=== PATIENT | male | born 1975 | race Caucasian/White ===

== ENCOUNTER 2017-01-10 23:55 | Inpatient (IN) | payer MEDICAID ==
[~2017-01-10] VITALS: Ht 175.3 cm; Wt 99.8 kg
[~2017-01-10 23:55] MED LIST: ACET-2605 GT; ACET-868 GT; ACET325S10 RC; ALBU2.5V11 IH; ALBU2.5V13 IH; BISA10SU8 RC; CRAN3875 GT; DOCU-170 GT; ERGO400T7 GT; FERR220S2 GT; LACT-209 GT; LANS15TA4 GT; MAGN400O6 GT; MULT9LIQ GT; NA P133E RC; NAPH15DR14 EACHEYE; ONDA2VIA2 IV; POLY119P2 GT; RIVA10TA GT; VALP250S14 GT; VIT500LI GT
[2017-01-11] VITALS (7 sets, daily range): BP systolic 95–135; BP diastolic 51–95
--- NOTE | 2017-01-11 | NUR ---
TO BED 5 A 41 YO MALE PATIENT PT NIRMAL#78 FROM [facility] PER EMS PT HAS HAD A FEVER X 1 DAY. UPON ARRIVAL, PATIENT IS AWAKE, ALERT, NONVERBAL, RESPONSIVE. NAD NOTED. VSS. PLACED ON CARDIAC AND VS MONITOR. SUCTIONED FOR AIRWAY CLEARANCE. RT AT BEDSIDE TO CONNECT PATIENT TO [facility] VENT. SAFETY AND COMFORT MEASURES RENDERED. COOLING MEASURES RENDERED.
[2017-01-11] MEDS ORDERED: ACETAMINOPHEN 650 MG/SUPP.RECT RC ONE ×2 (00:14→01:00)
--- NOTE | 2017-01-11 00:20 | NUR ---
STARTED A SALINE LOCK ON THE RFA G20, BLOOD DRAWN AND SENT TO LAB.
--- NOTE | 2017-01-11 00:25 | NUR ---
XR AT BEDSIDE.
[2017-01-11] MEDS ORDERED: IV NS 0.9% 1,000 ML BAG IV ONE ×3 (00:30→01:00)
[2017-01-11 00:40] LABS: BASOPHILS # (AUTO) 0.1 /CMM (0.0-0.2); BASOPHILS % (AUTO) 0.3 % (0.0-2.0); HEMATOCRIT 33 % (39-51); HEMOGLOBIN 10.7 g/dL (13.5-17.5); LYMPHOCYTES # (AUTO) 1.3 /CMM (0.8-4.8); LYMPHOCYTES % (AUTO) 8.4 % (20.0-44.0); MEAN CORPUSCULAR HEMOGLOBIN 31 PG (26.0-33.0); MEAN CORPUSCULAR HGB CONC 33 g/dl (31.0-36.0); MEAN CORPUSCULAR VOLUME 94 fL (80-96); MONOCYTES # (AUTO) 0.7 /CMM (0.1-1.30); MONOCYTES % (AUTO) 4.7 % (2.0-12.0); NEUTROPHILS # (AUTO) 13.2 /CMM (1.8-8.9); NEUTROPHILS % (AUTO) 86.6 % (43.0-81.0); PLATELET COUNT (AUTO) 264 /CMM (150-450); RDW COEFFICIENT OF VARIATION 19.7 (11.5-15.0); RED BLOOD CELL COUNT(AUTO) 3.45 MIL/uL (4.5-6.0); WHITE BLOOD COUNT (AUTO) 15.2 K/uL (4.3-11.0)
[2017-01-11 00:43] LABS: APPEARANCE,URINE CLEAR (CLEAR); BILIRUBIN,URINE NEGATIVE (NEGATIVE); BLOOD, URINE NEGATIVE Ery/uL (NEGATIVE); COLOR,URINE YELLOW (YELLOW); KETONES,URINE NEGATIVE (NEGATIVE); LEUKOCYTE ESTERASE ,URINE NEGATIVE (NEGATIVE); NITRITE, URINE NEGATIVE (NEGATIVE); PROTEIN,URINE NEGATIVE (NEGATIVE); UGLUCOSE NEGATIVE (NEGATIVE); UROBILINOGEN,URINE 0.2 EU/dL (0.2)
--- NOTE | 2017-01-11 00:49 | NUR ---
PT ASSIGNED TO 113-2
[2017-01-11] MEDS ORDERED: ENOX40DI SUBCUT (00:53)
[2017-01-11 00:54] LABS: CALCIUM, SERUM 9.3 mg/dL (8.5-10.1); CARBON DIOXIDE 26 mmol/L (21-32); CHLORIDE 106 mmol/L (98-107); CREATININE 0.3 mg/dL (0.6-1.3); GLUCOSE 118 mg/dL (74-106); POTASSIUM 4.4 mmol/L (3.5-5.1); SODIUM SERUM 140 mmol/L (136-145); UREA NITROGEN, BLOOD 7 mg/dL (7-18)
[2017-01-11] MEDS ORDERED: IV NS 0.9% 500 ML BAG IV ONE (01:00)
[2017-01-11] MEDS ORDERED: LEVOFLOXACIN 750 MG /D5W 150ML PIGGYBACK IV ONE (01:00)
[2017-01-11] MEDS ORDERED: AZTREONAM 1 G in IV NS 0.9% 100 ML IV ONE (01:00)
[2017-01-11 01:01] LABS: TROPONIN I < 0.017 ng/mL (0.00-0.056)
[2017-01-11 01:04] LABS: INR 1.05 (0.87-1.13); PROTHROMBIN TIME 10.9 SECS (9.5-12.7)
[2017-01-11] MEDS ORDERED: AZTREONAM 1 G VIAL ONE (01:06)
[2017-01-11 01:08] LABS: ALANINE AMINOTRANSFERASE 54 U/L (12-78); ALBUMIN 2.3 g/dL (3.4-5.0); ALKALINE PHOSPHATASE 273 U/L (46-116); ASPARTATE AMINOTRANSFERASE 43 U/L (15-37); BILIRUBIN,DIRECT 0.2 mg/dL (0.0-0.2); BILIRUBIN,TOTAL 0.6 mg/dL (0.2-1.0); TOTAL PROTEIN, SERUM 7.6 g/dL (6.4-8.2)
--- NOTE | 2017-01-11 01:20 | NUR ---
CALLED DR. CRUZ OFFICE, LEFT, WAITING FOR CALL BACK,
--- NOTE | 2017-01-11 01:22 | NUR ---
DR PLATT SPEAKING TO DR. CRUZ REGARDING ADMISSION.
--- NOTE | 2017-01-11 01:45 | NUR ---
PRACTICE LEAD INITIAL NOTES RECEIVED PATIENT VIA GURNEY, RESPONSIVE TO NAME, AND TOUCH, NON-VERBAL, VENT DEPENDENT. ABLE TO MAKE NEEDS KNOWN WITH HAND GESTURES. NO S/S OF PAIN OR DISCOMFORT. RESPIRATIONS EVEN AND UNLABORED WITH VENT SETTINGS AC 14, TV 550, FIO2 40%, PEEP 5, SPO2 100%. TRACH C/D/I. LUNG SOUNDS RHONCHI, SUCTION, WITH PALE YELLOW, THICK SECRETIONS. WITH GT PATENT, INTACT, IN PLACE, CLAMPED. ON TELE MONITOR SR. NOTED WITH ABDOMINAL DISTENTION, NON-TENDER. F/C DRAINING BY GRAVITY, PATENT AND INTACT, WITH CLEAR, YELLOW OUTPUT. WITH RFA IV LINES PATENT AND INTACT, ONE WITH AZACTAM RUNNING AND ONE WITH 2 BAGS OF NS RUNNING BOLUS. HOB ELEVATED. SIDE RAILS UP AND LOCKED. BED KEPT AT LOWEST POSITION. CALL LIGHT KEPT WITHIN EASY REACH. WILL CONTINUE TO MONITOR.
--- NOTE | 2017-01-11 01:50 | NUR ---
REPORT GIVEN TO PEGGY CALLOWAY FOR TELE ADMISSION AND SHERIE.
--- NOTE | 2017-01-11 01:55 | NUR ---
TRANSFERRED PATIENT TO TELE BED 313-2 VIA ALS PROTOCOL, NO INCIDENT NOTED.
[2017-01-11] MEDS ORDERED: ALBUTEROL FS 2.5 MG/3 ML VIAL.NEB NEB PRN (02:00)
[2017-01-11] MEDS ORDERED: LEVOFLOXACIN 750 MG /D5W 150ML 750 MG in PREMIX 1 EA IV SCH (02:00)
[2017-01-11] MEDS ORDERED: ENOXAPARIN SODIUM 40 MG/0.4 ML DISP.SYRIN SQ SCH ×2 (02:30→09:00)
[2017-01-11] MEDS ORDERED: DEXT15DR6 EACHEYE ×2 (02:41→02:44)
[2017-01-11] MEDS ORDERED: FAMO20TA8 PO ×2 (02:41→02:44)
[2017-01-11] MEDS ORDERED: PROP15TA GT (02:44)
[2017-01-11] MEDS ORDERED: LEVE500T9 PO (02:44)
[2017-01-11] MEDS ORDERED: METO25TA6 GT (02:44)
[2017-01-11] MEDS ORDERED: THEO80SO GT (02:44)
--- NOTE | 2017-01-11 04:11 | NUR ---
SPOKE WITH NURSE KAREEM FROM [facility], PATIENT HAS NO RECORD OF FLU VACCINE, BUT HAS RECORD OF PNA VACCINE ON 04/20/14
[2017-01-11 07:17] LABS: BASOPHILS % (AUTO) 0.1 % (0.0-2.0); EOSINOPHILS % (AUTO) 0.1 % (0.0-6.0); HEMATOCRIT 38 % (39-51); HEMOGLOBIN 12.3 g/dL (13.5-17.5); LYMPHOCYTES # (AUTO) 1.3 /CMM (0.8-4.8); LYMPHOCYTES % (AUTO) 8.3 % (20.0-44.0); MEAN CORPUSCULAR HEMOGLOBIN 31 PG (26.0-33.0); MEAN CORPUSCULAR HGB CONC 33 g/dl (31.0-36.0); MEAN CORPUSCULAR VOLUME 96 fL (80-96); MONOCYTES # (AUTO) 0.6 /CMM (0.1-1.30); NEUTROPHILS # (AUTO) 13.7 /CMM (1.8-8.9); NEUTROPHILS % (AUTO) 87.5 % (43.0-81.0); PLATELET COUNT (AUTO) 229 /CMM (150-450); RDW COEFFICIENT OF VARIATION 19.9 (11.5-15.0); RED BLOOD CELL COUNT(AUTO) 3.91 MIL/uL (4.5-6.0); WHITE BLOOD COUNT (AUTO) 15.7 K/uL (4.3-11.0)
--- NOTE | 2017-01-11 07:26 | NUR ---
CLINIC ASSISTANT CLOSING NOTES NO SIGNIFICANT CHANGES OVERNIGHT. PATIENT RESTING COMFORTABLY IN BED. NO RESPIRATORY DISTRESS NOTED. TOLERATING VENT SETTINGS. SPO2 100%. WITH GT PATENT PATENT, INTACT, IN PLACE. F/C PATENT AND INTACT, DRAINING BY GRAVITY. ISOLATION PRECAUTIONS OBSERVED. SIDE RAILS UP AND LOCKED. BED KEPT AT LOWEST POSITION. TURNED AND REPOSITIONED Q2 AND PRN. CONTINUITY OF CARE ENDORSED TO AM NURSE.
[2017-01-11] MEDS ORDERED: Z GUARD REMEDY 2 OZ OINT TP PRN (07:30)
[2017-01-11 07:35] LABS: ALBUMIN 2.4 g/dL (3.4-5.0); BILIRUBIN,DIRECT 0.2 mg/dL (0.0-0.2); BILIRUBIN,TOTAL 0.6 mg/dL (0.2-1.0); CALCIUM, SERUM 8.9 mg/dL (8.5-10.1); CREATININE 0.2 mg/dL (0.6-1.3); POTASSIUM 4.1 mmol/L (3.5-5.1); TOTAL PROTEIN, SERUM 8.3 g/dL (6.4-8.2)
--- NOTE | 2017-01-11 08:00 | NUR ---
PT AWAKE, ALERTED TO SELF, DENIES PAIN, VSS, AUNT ASYA UPDATED ON PT PROGRESS.
[2017-01-11] MEDS ORDERED: POLY15DR40 EACHEYE (08:02)
[2017-01-11] MEDS ORDERED: NA P133E RC (08:02)
[2017-01-11] MEDS ORDERED: DOCU50LI GT (08:02)
[2017-01-11] MEDS ORDERED: ACET-868 GT (08:02)
[2017-01-11] MEDS ORDERED: LACT10SO GT (08:02)
[2017-01-11] MEDS ORDERED: LEVE100S GT (08:02)
[2017-01-11] MEDS ORDERED: IPRA3AMP IH ×2 (08:02)
[2017-01-11] MEDS ORDERED: LACT-96 GT (08:02)
[2017-01-11] MEDS ORDERED: Medication Not On Formulary EA (Cran/Vitc/Mannose/Inulin/Brom (Uti-Stat Liquid) 30 ML) GT SCH (09:00)
[2017-01-11] MEDS ORDERED: MAGNESIUM HYDROXIDE 30 ML UDC GT PRN (09:00)
[2017-01-11] MEDS ORDERED: BISACODYL SUPP (10 MG) 10 MG/SUPP.RECT SUPP.RECT RC PRN (09:00)
[2017-01-11] MEDS ORDERED: ACETAMINOPHEN 650 MG/20.3 ML UDC GT PRN (09:00)
[2017-01-11] MEDS ORDERED: ACETAMINOPHEN 325 MG TABLET PO SCH (09:00)
[2017-01-11] MEDS ORDERED: LACTOSE FREE FOOD GT SCH (09:00)
[2017-01-11] MEDS ORDERED: NA PHOS,M-B/NA PHOS,DI-BA 1 EA ENEMA RC PRN (09:00)
[2017-01-11] MEDS ORDERED: PROPANTHELINE BROMIDE 15 MG GT SCH (09:00)
[2017-01-11] MEDS ORDERED: [UNRECOGNIZED DRUG - OTHER] GT SCH (09:00)
[2017-01-11] MEDS ORDERED: LACTULOSE 10 G/15 ML UDC (PYXIS) PO PRN (09:00)
[2017-01-11] MEDS: METOPROLOL TARTRATE 25 MG TABLET GT SCH ×2 (09:00→17:00)
[2017-01-11] MEDS ORDERED: Medication Not On Formulary EA (Ipratropium/Albuterol Sulfate (Duoneb 2.5-0.5 Mg/3 Ml So IH PRN (09:00)
[2017-01-11] MEDS ORDERED: POLYVINYL ALCOHOL 15 ML BOTTLE EACHEYE PRN (09:00)
[2017-01-11] MEDS ORDERED: FIBER GT SCH (09:00)
--- NOTE | 2017-01-11 09:00 | NUR ---
AK PT FAMILY THE CURRENT DAILY IS NOT NEW, AND SCABIES WAS R/O IN THE SNF. [facility] CONTACTED TO INQUIRE ABOUT DAILY TREATMENT. PT WAS RECITING MOMETASONE OINT. DAILY NEEDED.
[2017-01-11] MEDS ORDERED: AZTREONAM 1 G in IV NS 0.9% 100 ML IV SCH (10:00)
--- NOTE | 2017-01-11 10:00 | NUR ---
PT ASSISTED WITH FULL BED AND BATH. ONE LARGE LIQUID BM NOTED.
[2017-01-11] MEDS: AZTREONAM 1 G in IV NS 0.9% 100 ML IV SCH ×3 (10:05→21:36)
[2017-01-11] MEDS: FERROUS SULFATE UDC 300 MG/5 ML UDC GT SCH ×2 (10:14→18:27)
[2017-01-11] MEDS: LEVETIRACETAM SOL (5 ML) 100 MG/ML UDC GT SCH ×2 (10:14→18:27)
[2017-01-11] MEDS: FAMOTIDINE (20 MG) 20 MG TABLET PO SCH ×2 (10:18→18:27)
[2017-01-11] MEDS: THEOPHYLLINE ANHYDROUS 80 MG/15 ML UDC GT SCH ×2 (10:18→20:51)
[2017-01-11 10:47] LABS: BAND % (MANUAL) 1 % (0.0-5.0); LYMPHOCYTES % (MANUAL) 6 % (16-48); MONOCYTES % (MANUAL) 6 % (0-11.0); NEUTROPHILS % (MANUAL) 87 (42-76)
[2017-01-11] MEDS: FIBERSOURCE HN 1,000 ML BOTTLE GT PRN (11:23)
--- NOTE | 2017-01-11 12:00 | NUR ---
TEMP 101/1, CUULING MEASURES INITIATED. DR CRUZ NOTIFIED.
[2017-01-11] MEDS: POLYVINYL ALCOHOL 15 ML BOTTLE EACHEYE SCH ×3 (13:00→20:51)
--- NOTE | 2017-01-11 13:00 | NUR ---
BLOOD CULT. SENT. IVF INITIATED. MOMETASONE OINT. ORDERED.
[2017-01-11] MEDS ORDERED: Medication Not On Formulary EA (Ipratropium/Albuterol Sulfate (Duoneb 2.5-0.5 Mg/3 Ml So IH SCH (13:30)
[2017-01-11] MEDS: ALBUTEROL FS 2.5 MG/0.5 ML VIAL.NEB NEB SCH ×2 (14:10→19:39)
[2017-01-11] MEDS: IPRATROPIUM NEB FS 0.5 MG/2.5 ML AMPUL.NEB NEB SCH ×2 (14:10→19:39)
[2017-01-11] MEDS: IV NS 0.9% 1,000 ML IV SCH (15:23)
--- NOTE | 2017-01-11 18:37 | NUR ---
GTF INFUSING AT 20 ML/H. 200 ML RESIDUAL NOTED. GTF PLACED ON HOLD
[2017-01-11] MEDS ORDERED: DOSING PER PHARMACY-AMIKACI IV XX PRN (19:00)
[2017-01-11] MEDS: MOMETASONE FUROATE 0.1% CREAM 15 GM TUBE TP SCH (19:13)
--- NOTE | 2017-01-11 19:20 | NUR ---
RN INITIAL NOTE RECEIVED PT IN NO ACUTE DISTRESS IN BED. PT IS A/O X 1 AND ABLE TO MAKE NEEDS KNOWN. PT IS ON MECHANICAL VENT VIA TRACH. TRACH SITE IS CLEAN DRY AND INTACT. PT TOLERATING VENT SETTING WELL. PT HAS R FOREARM 22G AND 20G THAT ARE CLEAN DRY AND INTACT. PT HAS GTUBE THAT IS CLEAN DRY, INTACT AND PATENT WITH FIBERSOURCE @ 20ML/HR. PT HAS 0 RESIDUAL. WILL CONTINUE TO MONITOR RESIDUAL. PT NOT C/O ANY SOB, DIFFICULTY BREATHING OR PAIN AT THIS TIME. BED IN LOW LOCK POSITION WITH RIALS UP X 2. CALL LIGHT WITHIN REACH AND ALL SAFETY MEASURES ENSURED AND CARRIED OUT. WILL CONTINUE TO MONITOR FOR ANY CHANGES IN CONDITION.
[2017-01-11] MEDS ORDERED: FEE PK DOSING 1 MIN EA MC ONE ×2 (19:39)
[2017-01-11] MEDS: VANCOMYCIN 1.25 GM in IV D5W 500 ML IV SCH (20:51)
[2017-01-11] MEDS: ENOXAPARIN SODIUM 40 MG/0.4 ML DISP.SYRIN SQ SCH (20:52)
[2017-01-11] MEDS ORDERED: D5W IV SCH (21:00)
[2017-01-11] MEDS ORDERED: AMIKACIN IV SCH (21:00)
[2017-01-11] MEDS: DOCUSATE SODIUM LIQ 100 MG/10 ML UDC GT SCH (21:40)
[2017-01-12] VITALS: BP 102/52
[2017-01-12] MEDS: IV NS 0.9% 1,000 ML IV SCH ×3 (01:40→21:30)
[2017-01-12] MEDS: LEVOFLOXACIN 750 MG /D5W 150ML 750 MG in PREMIX 1 EA IV SCH (01:48)
[2017-01-12] MEDS: ALBUTEROL FS 2.5 MG/0.5 ML VIAL.NEB NEB SCH ×4 (01:56→19:26)
[2017-01-12] MEDS: IPRATROPIUM NEB FS 0.5 MG/2.5 ML AMPUL.NEB NEB SCH ×4 (01:56→19:26)
[2017-01-12 04:00] VITALS: BP 130/72
[2017-01-12] MEDS: AZTREONAM 1 G in IV NS 0.9% 100 ML IV SCH (04:03)
[2017-01-12] MEDS: VANCOMYCIN 1.25 GM in IV D5W 500 ML IV SCH ×3 (04:03→20:00)
--- NOTE | 2017-01-12 06:32 | NUR ---
RN CLOSING NOTE PT REMAINS IN NO ACUTE DISTRESS IN BED. PT DID NOT HAVE ANY SIGNIFICANT CHANGE IN CONDITION DURING SHIFT. ALL NEEDS MET, ALL ORDERS CARRIED OUT. PT TOLERATED VENT SETTING WELL. WILL ENDORSE CARE TO AM RN FOR CONTINUITY OF CARE.
--- NOTE | 2017-01-12 07:10 | NUR ---
RN INITIAL NOTE PATIENT RECEIVED IN BED RESTING. PATIENT IS NON-VERBAL, GRUNTS AND NODS. HAS TRACH PORTEX #7, TOLERATING VENT SETTINGS WELL. NO S/S OF RESPIRATORY DISTRESS OR SOB. SINUS RHYTHM ON TELE MONITOR. JEFF CATHETER DRAINING TO GRAVITY. GTUBE FLUSHED, PATENT. PLACEMENT VERIFIED. HAVING LOTS OF RESIDUALS PER PM RN, WILL FOLLOW UP DURING MY SHIFT. RESTARTED FEEDING. IV SITE FLUSHED, PATENT. SKIN IS WARM AND DRY TO TOUCH. SAFETY PRECAUTIONS IMPLEMENTED. BED IN LOCKED, LOW POSITION WITH TWO SIDE RAILS UP. WILL CONTINUE TO MONITOR CLOSELY.
[2017-01-12 07:39] LABS: BASOPHILS % (AUTO) 0.4 % (0.0-2.0); EOSINOPHILS # (AUTO) 0.1 /CMM (0.0-0.7); EOSINOPHILS % (AUTO) 0.8 % (0.0-6.0); HEMATOCRIT 30 % (39-51); HEMOGLOBIN 9.9 g/dL (13.5-17.5); LYMPHOCYTES # (AUTO) 1.9 /CMM (0.8-4.8); LYMPHOCYTES % (AUTO) 17.4 % (20.0-44.0); MEAN CORPUSCULAR HEMOGLOBIN 31 PG (26.0-33.0); MEAN CORPUSCULAR HGB CONC 33 g/dl (31.0-36.0); MEAN CORPUSCULAR VOLUME 94 fL (80-96); MONOCYTES # (AUTO) 0.9 /CMM (0.1-1.30); MONOCYTES % (AUTO) 8.1 % (2.0-12.0); NEUTROPHILS # (AUTO) 7.9 /CMM (1.8-8.9); NEUTROPHILS % (AUTO) 73.3 % (43.0-81.0); PLATELET COUNT (AUTO) 164 /CMM (150-450); RDW COEFFICIENT OF VARIATION 19.9 (11.5-15.0); RED BLOOD CELL COUNT(AUTO) 3.22 MIL/uL (4.5-6.0); WHITE BLOOD COUNT (AUTO) 10.8 K/uL (4.3-11.0)
[2017-01-12 08:00] VITALS: BP 94/47
[2017-01-12 08:12] LABS: CALCIUM, SERUM 8.1 mg/dL (8.5-10.1); CREATININE 0.2 mg/dL (0.6-1.3); POTASSIUM 3.9 mmol/L (3.5-5.1)
--- NOTE | 2017-01-12 08:15 | NUR ---
WOUND CARE CONSULT: PT PRESENTS WITH TIGHT SHINY SKIN WITH PITTING EDEMA (2+) AND FEW TINY INTACT BLISTERS TO LEFT FOOT. SOME AREAS OF SKIN REDNESS/RASH NOTED INCLUDING RT FLANK AREA. DEFER TO MD FOR REDNESS/RASH ON TRUNK OF BODY. EXCORIATION NOTED TO RT ABDOMINAL/GROIN FOLD, PRESENT ON ADMISSION. PT HAS SMALL BROWN AREA OF PEELING SKIN TO LOWER LIP. NURSES MOISTURIZING LIP. PT HAS LARGE ABDOMEN AND GENERALIZED EDEMA. CURRENT ADELINA SCORE IS 12. PT ON DENNIS ISOFLEX LOW AIRLOSS BED. ALL SKIN PROTECTION MEASURES IN PLACE. DISCUSSED WITH NURSING STAFF. WILL SEE PRN. IN AGREEMENT WITH PLAN OF CARE. Addendum: 01/12/17 at 0818 by TEAGAN LAZARO WNDNU Amended: Links added.
[2017-01-12] MEDS: THEOPHYLLINE ANHYDROUS 80 MG/15 ML UDC GT SCH ×2 (08:52→18:21)
[2017-01-12] MEDS: POLYVINYL ALCOHOL 15 ML BOTTLE EACHEYE SCH ×4 (08:53→21:37)
[2017-01-12] MEDS: FERROUS SULFATE UDC 300 MG/5 ML UDC GT SCH ×2 (08:53→18:11)
[2017-01-12] MEDS: MOMETASONE FUROATE 0.1% CREAM 15 GM TUBE TP SCH (08:55)
[2017-01-12] MEDS: LEVETIRACETAM SOL (5 ML) 100 MG/ML UDC GT SCH ×2 (08:55→18:11)
[2017-01-12] MEDS: FAMOTIDINE (20 MG) 20 MG TABLET PO SCH ×2 (08:55→18:11)
[2017-01-12] MEDS: METOPROLOL TARTRATE 25 MG TABLET GT SCH ×2 (08:56→17:00)
[2017-01-12 12:00] VITALS: BP 90/45
[2017-01-12 16:00] VITALS: BP_SYST 90; BP_SYST 92; BP_DIAS 48; BP_DIAS 53
--- NOTE | 2017-01-12 19:28 | NUR ---
RN CLOSING NOTE CARRIED OUT ALL MD ORDERS, ALL PATIENTS NEEDS ANTICIPATED. PATIENT KEPT CLEAN AND DRY. REPORT WILL BE GIVEN TO PM RN FOR SHERIE.
[2017-01-12 20:00] VITALS: BP 116/60
[2017-01-12] MEDS: DOCUSATE SODIUM LIQ 100 MG/10 ML UDC GT SCH (21:37)
[2017-01-12] MEDS: ENOXAPARIN SODIUM 40 MG/0.4 ML DISP.SYRIN SQ SCH (21:38)
[2017-01-13] VITALS: BP 112/60
[2017-01-13] MEDS: ALBUTEROL FS 2.5 MG/0.5 ML VIAL.NEB NEB SCH ×4 (01:41→19:43)
[2017-01-13] MEDS: IPRATROPIUM NEB FS 0.5 MG/2.5 ML AMPUL.NEB NEB SCH ×4 (01:41→19:43)
[2017-01-13] MEDS: IV NS 0.9% 1,000 ML IV SCH ×2 (02:59→16:54)
[2017-01-13] MEDS: LEVOFLOXACIN 750 MG /D5W 150ML 750 MG in PREMIX 1 EA IV SCH (03:00)
[2017-01-13 04:00] VITALS: BP 122/59
[2017-01-13] MEDS: VANCOMYCIN 1.25 GM in IV D5W 500 ML IV SCH ×2 (04:00→13:48)
[2017-01-13] MEDS: FIBERSOURCE HN 1,000 ML BOTTLE GT PRN (05:42)
--- NOTE | 2017-01-13 07:05 | NUR ---
RN NOTE RECEIVED PT ON BED, NONVERBAL , NODS TO YES OR NO QUESTIONS , VENT/ TRACH DEPENDENT , TRACH CARE DONE , PORTEX #7, TOLERATING VENT SETTINGS WELL. NO SOB NOTED, ON TELE SR HR IN 70'S , JEFF CATHETER DRAINING TO GRAVITY. TF FIBERSOURCE AT 35CC/HR RUNNING VIA GT , NO RESIDUAL NOTED AT THIS TIME , R FA IV SITE G 20 CDI, WITH NS AT 100CC/HR RUNNING , SR UP x3, CALL LIGHT WITHIN EASY REACH, BED LOCKED AND IN LOWEST POSITION , WILL CONTINUE TO MONITOR PT CLOSELY.
[2017-01-13 07:34] LABS: BASOPHILS % (AUTO) 0.3 % (0.0-2.0); EOSINOPHILS # (AUTO) 0.2 /CMM (0.0-0.7); EOSINOPHILS % (AUTO) 2.1 % (0.0-6.0); HEMATOCRIT 30 % (39-51); LYMPHOCYTES # (AUTO) 2.4 /CMM (0.8-4.8); LYMPHOCYTES % (AUTO) 26.8 % (20.0-44.0); MEAN CORPUSCULAR HEMOGLOBIN 31 PG (26.0-33.0); MEAN CORPUSCULAR HGB CONC 33 g/dl (31.0-36.0); MEAN CORPUSCULAR VOLUME 93 fL (80-96); MONOCYTES # (AUTO) 0.9 /CMM (0.1-1.30); MONOCYTES % (AUTO) 9.8 % (2.0-12.0); NEUTROPHILS # (AUTO) 5.6 /CMM (1.8-8.9); PLATELET COUNT (AUTO) 245 /CMM (150-450); RDW COEFFICIENT OF VARIATION 19.1 (11.5-15.0); RED BLOOD CELL COUNT(AUTO) 3.26 MIL/uL (4.5-6.0); WHITE BLOOD COUNT (AUTO) 9.1 K/uL (4.3-11.0)
[2017-01-13 07:49] LABS: CALCIUM, SERUM 8.4 mg/dL (8.5-10.1); CREATININE 0.2 mg/dL (0.6-1.3); POTASSIUM 3.3 mmol/L (3.5-5.1)
[2017-01-13 08:00] VITALS: BP 123/65
[2017-01-13] MEDS: LEVETIRACETAM SOL (5 ML) 100 MG/ML UDC GT SCH ×2 (08:35→16:55)
[2017-01-13] MEDS: METOPROLOL TARTRATE 25 MG TABLET GT SCH ×2 (08:35→16:55)
[2017-01-13] MEDS: FERROUS SULFATE UDC 300 MG/5 ML UDC GT SCH ×2 (08:35→16:56)
[2017-01-13] MEDS: FAMOTIDINE (20 MG) 20 MG TABLET PO SCH ×2 (08:35→16:56)
[2017-01-13] MEDS: MOMETASONE FUROATE 0.1% CREAM 15 GM TUBE TP SCH (08:36)
[2017-01-13] MEDS: POLYVINYL ALCOHOL 15 ML BOTTLE EACHEYE SCH ×4 (08:37→21:55)
[2017-01-13] MEDS: THEOPHYLLINE ANHYDROUS 80 MG/15 ML UDC GT SCH ×2 (08:40→16:59)
[2017-01-13] MEDS ORDERED: AMIKACIN 1,000 MG in IV D5W 100 ML IV SCH (09:00)
[2017-01-13] MEDS ORDERED: POTASSIUM CHLORIDE 20 MEQ POWDER PACKET NG SCH (11:00)
[2017-01-13 12:00] VITALS: BP 90/52
--- NOTE | 2017-01-13 12:00 | NUR ---
RN NOTES PT STABLE , TRACH SUCTION DONE , TOLERATING TF WELL , CONTINUE TO MONITOR .
[2017-01-13] MEDS: ACETAMINOPHEN ES 500 MG TABLET GT PRN (14:32)
[2017-01-13 16:00] VITALS: BP 106/58
--- NOTE | 2017-01-13 18:26 | NUR ---
RN NOTES VSS STABLE , NS AT 100CC/HR RUNNING VIA R FA IV SITE G 20 , TOLERATING TF WELL, JEFF DRAINING TO GRAVITY WITH YELLOW URINE , SR UP x3, CALL LIGHT WITHIN EASY REACH, WILL ENDORSE TO RAILWAY ENGINEER NURSE FOR SHERIE .
--- NOTE | 2017-01-13 19:25 | NUR ---
RN OPENING NOTES PT RECEIVED RESTING IN BED. EYES OPEN, A/OX1. VENT SETTINGS NOTED. BREATHING EVEN AND UNLABORED, NO S/S OF DISTRESS NOTED. NO SOB, PAIN OR FACIAL GRIMACING NOTED. ON TELE MONITOR SHOWING SINUS RHYTHM WITH HEART RATE AT 69. IV TO RFA PATENT AND INTACT RUNNING NS AT 100ML/HR. JEFF IN PLACE AND DRAINING TO GRAVITY. BED IN LOW/LOCKED POSITION WITH CALL LIGHT IN REACH. SIDE RAILS UPX3 AND BED ALARM ON FOR SAFETY. WILL CONTINUE TO MONITOR
[2017-01-13 20:00] VITALS: BP 108/68
[2017-01-13] MEDS: DOCUSATE SODIUM LIQ 100 MG/10 ML UDC GT SCH (21:54)
[2017-01-13] MEDS: ENOXAPARIN SODIUM 40 MG/0.4 ML DISP.SYRIN SQ SCH (21:55)
[2017-01-14] VITALS: BP 127/71
[2017-01-14] MEDS: IPRATROPIUM NEB FS 0.5 MG/2.5 ML AMPUL.NEB NEB SCH ×3 (01:22→13:06)
[2017-01-14] MEDS: ALBUTEROL FS 2.5 MG/0.5 ML VIAL.NEB NEB SCH ×3 (01:22→13:06)
[2017-01-14] MEDS: LEVOFLOXACIN 750 MG /D5W 150ML 750 MG in PREMIX 1 EA IV SCH (02:54)
[2017-01-14] MEDS: IV NS 0.9% 1,000 ML IV SCH ×2 (02:54→14:05)
[2017-01-14 04:00] VITALS: BP 115/64
[2017-01-14] MEDS: FIBERSOURCE HN 1,000 ML BOTTLE GT PRN (05:10)
--- NOTE | 2017-01-14 06:48 | NUR ---
TELE/RN CLOSING NOTES PT RESTING COMFORTABLY IN BED. EYES OPEN. MOANS FREQUENTLY. A/OX1. VENT SETTINGS AC=14, PL=859, FIO2=40%, PEEP=5. BREATHING EVEN AND UNLABORED. SUCTIONED FREQUENTLY. NO SOB OR S/S OF PAIN. JEFF IN PLACE AND DRAINING TO GRAVITY. IV TO RFA PATENT AND INTACT RUNNING IVF ORDERED. GT FEEDING CURRENTLY ON HOLD, TO RESUME AT 0900 (ORDERS TO RUN AT 35CC/HR X 20HRS). RESIDUAL OF APPROX. 75ML NOTED. BED IN LOW/LOCKED POSITION, CALL LIGHT IN REACH. SIDE RAILS UPX2. TURNED/REPOSITIONED Q2H AND HEELS OFFLOADED AT ALL TIMES. DR. CRUZ [facility] WILL ENDORSE TO DAY SHIFT RN SHERIE. Addendum: 01/14/17 at 0653 by CARLY PALMER RN ON TELE MONITOR SHOWING SR WITH HR AT 71
[2017-01-14 07:49] LABS: CALCIUM, SERUM 8.6 mg/dL (8.5-10.1); CREATININE 0.3 mg/dL (0.6-1.3); POTASSIUM 3.5 mmol/L (3.5-5.1)
[2017-01-14 08:00] VITALS: BP 122/66
[2017-01-14] MEDS: FERROUS SULFATE UDC 300 MG/5 ML UDC GT SCH (09:07)
[2017-01-14] MEDS: ACETAMINOPHEN ES 500 MG TABLET GT PRN (09:07)
[2017-01-14] MEDS: LEVETIRACETAM SOL (5 ML) 100 MG/ML UDC GT SCH (09:07)
[2017-01-14] MEDS: METOPROLOL TARTRATE 25 MG TABLET GT SCH (09:08)
[2017-01-14] MEDS: FAMOTIDINE (20 MG) 20 MG TABLET PO SCH (09:09)
[2017-01-14] MEDS: THEOPHYLLINE ANHYDROUS 80 MG/15 ML UDC GT SCH (09:09)
[2017-01-14] MEDS: MOMETASONE FUROATE 0.1% CREAM 15 GM TUBE TP SCH (09:10)
[2017-01-14] MEDS: POLYVINYL ALCOHOL 15 ML BOTTLE EACHEYE SCH ×2 (09:10→14:05)
[2017-01-14] MEDS ORDERED: LORAZEPAM INJ 2 MG/ML VIAL IV PRN (11:00)
[2017-01-14 11:15] VITALS: BP 114/65
[2017-01-14] MEDS ORDERED: ATROPINE SULFATE 1 MG/10 ML DISP.SYRIN IV ONE (11:30)
[2017-01-14 12:00] VITALS: BP 112/69
[2017-01-14] MEDS ORDERED: VANCOMYCIN 1.25 GM in IV D5W 500 ML IV SCH (12:00)
[2017-01-14 16:00] VITALS: BP 102/58
[2017-01-14] MEDS ORDERED: METOPROLOL TARTRATE 25 MG TABLET GT SCH (17:00)
--- NOTE | 2017-01-14 17:03 | NUR ---
PATIENT DISCHARGE VIA AMBULANZ TO [facility], PATIENT LAST VITALS SIGNS AT 4PM BP102/58, HR 57, RR 18 TEMP 97.6 VENT O2 SAT. 100%. REPORT GIVEN TO CLIF AT [facility] TODAY. PATIENT SENT WITH RIGHT FOREARM INTRAVENOUS LINE FOR CONTINUATION OF IV ANTIBIOTICS, LINE PATENT, NO S/S OF INFECTION. PATIENT ALSO SENT WITH JEFF TO GRAVITY DUE TO MOISTURE ASSOCIATED SKIN BREAKDOWN TO SACRAL/BUTTOCK. INCONTINENCE AND ACCURATE I/O, NO S/S OF UTI NOTED, 2250 ML OUTPUT DURING SHIFT. EARLIER DURING SHIFT, PATIENT WAS YELLING AND MOANING LOUDLY AND POINT TO RIGHT HIP, XRAY COMPLETED, NO FRACTURE NOTED. PATIENT HEART RATE ALSO WAS IN THE 40'S, CARDIOLOGY WAS CONSULTED AND ORDERED PATIENT OKAY TO BE DISCHARGE. NO S/S OF CARDIOPULMONARY DISTRESS. PATIENT ON VENT, TRACH PORTEX #7, AC 14, TV 550, PEEP 5, FIO2 40%. PICTURES TAKEN OF PATIENT OF HEEL, GROIN, BUTTOCKS, AND UNDERARM. PATIENT ABDOMEN DISTENDED, G-TUBE WITH FIBERSOURCE AT 35ML/HR FOR 20 HRS.
== END 2017-01-14 16:30 | DRG 720 ==
LOC: ER 23:58 → TELE1 01-11 01:34
PROVIDERS: ADMIT Internal Medicine Rheumatology; ATTEND Internal Medicine Rheumatology
PROC: 5A1945Z Respiratory Ventilation, 24-96 Consecutive Hours (ICD-10-PCS; principal; 2017-01-11)
DX: A41.9 Sepsis, unspecified organism (principal); Z99.11 Dependence on respirator [ventilator] status; G93.1 Anoxic brain damage, not elsewhere classified; J96.11 Chronic respiratory failure with hypoxia; J18.9 Pneumonia, unspecified organism; Z93.0 Tracheostomy status; I42.9 Cardiomyopathy, unspecified; L03.116 Cellulitis of left lower limb; G40.909 Epilepsy, unspecified, not intractable, without status epilepticus; R13.10 Dysphagia, unspecified; Z86.74 Personal history of sudden cardiac arrest; E66.9 Obesity, unspecified; Z68.32 Body mass index [BMI] 32.0-32.9, adult; B96.5 Pseudomonas (aeruginosa) (mallei) (pseudomallei) as the cause of diseases classified elsewhere; R00.1 Bradycardia, unspecified; I48.0 Paroxysmal atrial fibrillation
CPT/HCPCS: 31720; 36415; 71010-TC; 73501; 80048-TC; 80076-TC; 80150; 80202-TC; 81000-TC; 82272-TC; 83605-TC; 83880; 84484-TC; 85025-TC; 85730-TC; 87040-TC; 87070-TC; 87081-TC; 87086-TC; 87186-TC; 94002-TC; 94003-TC; 94762-TC; 99082-TC; A4216; A4606; A6403; J0278; J1650; J1953; J1956; J3370; J3490; J7030; J7040; J7050; J7060; Z7610

== ENCOUNTER 2017-01-20 20:17 | Emergency (ER) | payer MEDICAID ==
[~2017-01-20] VITALS: Ht 175.3 cm; Wt 102.5 kg
[~2017-01-20 20:17] MED LIST changes: -ACET325S10 RC; -ALBU2.5V11 IH; -ALBU2.5V13 IH; +DEXT15DR6 EACHEYE; -DOCU-170 GT; +DOCU50LI GT; +ENOX40DI SUBCUT; -ERGO400T7 GT; +FAMO20TA8 PO; +IPRA3AMP IH; -LACT-209 GT; +LACT-96 GT; +LACT10SO GT; -LANS15TA4 GT; +LEVE100S GT; +METO25TA6 GT; -MULT9LIQ GT; -NAPH15DR14 EACHEYE; -ONDA2VIA2 IV; -POLY119P2 GT; +POLY15DR40 EACHEYE; +PROP15TA GT; -RIVA10TA GT; +THEO80SO GT; -VALP250S14 GT; -VIT500LI GT
--- NOTE | 2017-01-20 20:20 | NUR ---
PT LUBNA JIMENEZ FROM [facility] FOR WITNESSED SEIZURE X 1 HOUR AGO. [facility], RT AT BEDSIDE. VENT SETTINGS ARE RATE 14/TV 550/PEEP 5/PEAK FLOW 60/ FI02 40. VSS. WITNESSED SEIZURE BY RN AT THE BEDSIDE. MD LOUISE, NEW ORDERS RECEIVED. SEIZURE PRECAUTIONS IN PLACE. PT IS TRACH TO VENT.
[2017-01-20] MEDS ORDERED: LORAZEPAM INJ 2 MG/ML VIAL ONE (20:23)
[2017-01-20] MEDS ORDERED: LORAZEPAM INJ 2 MG/ML VIAL IM ONE (20:30)
--- NOTE | 2017-01-20 20:30 | NUR ---
20G IV TO R WRIST USING ASEPTIC TECH, BLOOD HANDED OVER TO LAB AT BEDSIDE.
[2017-01-20 20:31] VITALS: BP 141/89
--- NOTE | 2017-01-20 20:35 | NUR ---
PT ARRIVED IN ER TRACHED WITH A PORTEX #7 ON [facility] VENT WITH THE FOLLOWING SETTINGS: AC 14 550 40% +5. PT AMBU BG AT BEDSIDE, MEC VENT ALARMS ARE SET, PLUGGED IN RED OUTLET, AND BRAKES LOCKED. PT TOLERATING FOLLOWING SETTING NO ADVERSE REACTIONS NOTED Addendum: 01/20/17 at 2037 by BRIANDA GARZON RT Amended: Links added.
--- NOTE | 2017-01-20 20:37 | NUR ---
XRAY AT BEDSIDE.
[2017-01-20 20:38] LABS: BASOPHILS # (AUTO) 0.1 /CMM (0.0-0.2); BASOPHILS % (AUTO) 0.4 % (0.0-2.0); EOSINOPHILS # (AUTO) 0.1 /CMM (0.0-0.7); EOSINOPHILS % (AUTO) 0.6 % (0.0-6.0); HEMATOCRIT 35 % (39-51); HEMOGLOBIN 11.8 g/dL (13.5-17.5); LYMPHOCYTES # (AUTO) 5.7 /CMM (0.8-4.8); LYMPHOCYTES % (AUTO) 38.6 % (20.0-44.0); MEAN CORPUSCULAR HEMOGLOBIN 31 PG (26.0-33.0); MEAN CORPUSCULAR HGB CONC 34 g/dl (31.0-36.0); MEAN CORPUSCULAR VOLUME 92 fL (80-96); MONOCYTES # (AUTO) 1.4 /CMM (0.1-1.30); MONOCYTES % (AUTO) 9.5 % (2.0-12.0); NEUTROPHILS # (AUTO) 7.4 /CMM (1.8-8.9); NEUTROPHILS % (AUTO) 50.9 % (43.0-81.0); PLATELET COUNT (AUTO) 647 /CMM (150-450); WHITE BLOOD COUNT (AUTO) 14.7 K/uL (4.3-11.0)
[2017-01-20 20:54] LABS: ALBUMIN 2.6 g/dL (3.4-5.0); BILIRUBIN,DIRECT 0.1 mg/dL (0.0-0.2); BILIRUBIN,TOTAL 0.4 mg/dL (0.2-1.0); CALCIUM, SERUM 9.5 mg/dL (8.5-10.1); CREATININE 0.4 mg/dL (0.6-1.3); TOTAL PROTEIN, SERUM 7.9 g/dL (6.4-8.2)
[2017-01-20 20:58] LABS: INR 1.02 (0.87-1.13); PROTHROMBIN TIME 10.6 SECS (9.5-12.7)
--- NOTE | 2017-01-20 21:00 | NUR ---
PT RESTING COMFORTABLY, VSS.
[2017-01-20 21:02] LABS: POTASSIUM 2.5 mmol/L (3.5-5.1)
[2017-01-20] MEDS ORDERED: POTASSIUM CHLORIDE 20 MEQ TAB.PRT.SR PO ONE (21:30)
--- NOTE | 2017-01-20 21:39 | NUR ---
CALLED [facility] FOR TRANSPORT - ETA 45 MIN - TRIP NUMBER [id number]
[2017-01-20] MEDS ORDERED: POTASSIUM CHLORIDE 20 MEQ POWDER PACKET ONE (22:08)
--- NOTE | 2017-01-20 22:24 | NUR ---
PT FAMILY AT BEDSIDE. VSS. CONTINUING TO MONITOR AND PROVIDE COMFORT AND SAFETY MEASURES.
[2017-01-20 22:57] VITALS: BP 124/80
== END 2017-01-20 23:00 ==
LOC: ER 20:19
DX: G40.909 Epilepsy, unspecified, not intractable, without status epilepticus (principal); E87.6 Hypokalemia; R79.1 Abnormal coagulation profile; D72.829 Elevated white blood cell count, unspecified; I48.91 Unspecified atrial fibrillation; K21.9 Gastro-esophageal reflux disease without esophagitis; Z46.82 Encounter for fitting and adjustment of non-vascular catheter; Z86.74 Personal history of sudden cardiac arrest; Z93.0 Tracheostomy status; Z99.11 Dependence on respirator [ventilator] status; Z88.8 Allergy status to other drugs, medicaments and biological substances
CPT/HCPCS: 36415; 71010; 80048; 80076; 82962; 85025; 85730; 93005; 96372; 99285; A4606; J2060; Z7610

== ENCOUNTER 2017-11-02 08:33 | Inpatient (IN) | payer MEDICAID ==
[2017-11-02] VITALS (51 sets, daily range): BP systolic 78–124; BP diastolic 21–76
[~2017-11-02] VITALS: Ht 175.3 cm; Wt 92.1 kg
[~2017-11-02 08:33] MED LIST changes: +FERR220S17 GT; -FERR220S2 GT; -IPRA3AMP IH; +IPRA3AMP23 IH; +THEO80EL4 GT; -THEO80SO GT
--- NOTE | 2017-11-02 08:35 | NUR ---
BIB RA [facility] FROM [facility]ARE, TACHYCARDIA AFTER SUCTIONING (160/MIN). PT AWAKE, NONVERBAL. VENT/TRACH. NOTED FEBRILE. SEEN BY MD FOR EVAL. RT AT BS. IV ACCESS STARTED. BLOOD DRAWN FOR LABS. URINE SAMPLE OBTAINED VIA STRAIGHT CATH, SENT. SAFETY AND COMFORT MEASURES PROVIDED. WILL MONITOR.
--- NOTE | 2017-11-02 08:35 | NUR ---
RECEIVED PT IN ER FROM SNF. PT TRACH WITH PORTEX 7. PLACED PT ON MECHANICAL VENTILATOR ON SETTINGS NOTED. SUCTIONED COPIOUS AMOUNT OF THICK YELLOW SECRETIONS. WILL CONTINUE TO MONITOR PT.
--- NOTE | 2017-11-02 08:50 | NUR ---
ZAKIA AT BS.
[2017-11-02] MEDS ORDERED: VANCOMYCIN 1 GM in IV D5W 250 ML IV ONE (09:00)
[2017-11-02] MEDS ORDERED: ACETAMINOPHEN 650 MG/SUPP.RECT RC ONE ×2 (09:00→10:03)
[2017-11-02] MEDS ORDERED: LEVOFLOXACIN 750 MG /D5W 150ML 150 ML IV ONE (09:00)
[2017-11-02] MEDS ORDERED: IV NS 0.9% 1,000 ML BAG IV ONE ×2 (09:00→10:30)
[2017-11-02 09:04] LABS: APPEARANCE,URINE SL CLOUDY (CLEAR); BILIRUBIN,URINE NEGATIVE (NEGATIVE); BLOOD, URINE TRACE-INTA Ery/uL (NEGATIVE); COLOR,URINE YELLOW (YELLOW); KETONES,URINE NEGATIVE (NEGATIVE); LEUKOCYTE ESTERASE ,URINE NEGATIVE (NEGATIVE); NITRITE, URINE NEGATIVE (NEGATIVE); PH,URINE 5.5 (5.0-8.0); PROTEIN,URINE 1+ mg/dl (NEGATIVE); UGLUCOSE NEGATIVE (NEGATIVE); UROBILINOGEN,URINE 0.2 EU/dL (0.2)
[2017-11-02 09:08] LABS: BASOPHILS # (AUTO) 0.1 /CMM (0.0-0.2); BASOPHILS % (AUTO) 0.4 % (0.0-2.0); EOSINOPHILS % (AUTO) 0.5 % (0.0-6.0); HEMATOCRIT 41 % (39-51); HEMOGLOBIN 12.8 g/dL (13.5-17.5); LYMPHOCYTES # (AUTO) 2.1 /CMM (0.8-4.8); LYMPHOCYTES % (AUTO) 13.5 % (20.0-44.0); MEAN CORPUSCULAR HEMOGLOBIN 30 PG (26.0-33.0); MEAN CORPUSCULAR HGB CONC 31 g/dl (31.0-36.0); MEAN CORPUSCULAR VOLUME 95 fL (80-96); MONOCYTES # (AUTO) 1.8 /CMM (0.1-1.30); MONOCYTES % (AUTO) 11.5 % (2.0-12.0); NEUTROPHILS # (AUTO) 11.8 /CMM (1.8-8.9); NEUTROPHILS % (AUTO) 74.1 % (43.0-81.0); PLATELET COUNT (AUTO) 581 /CMM (150-450); RDW COEFFICIENT OF VARIATION 18.6 (11.5-15.0); RED BLOOD CELL COUNT(AUTO) 4.29 MIL/uL (4.5-6.0); WHITE BLOOD COUNT (AUTO) 15.9 K/uL (4.3-11.0)
[2017-11-02 09:12] LABS: BACTERIA,URINE Few /HPF (None Seen); SQUAMOUS EPITHELIAL CELL,UR Few /HPF (None Seen); URINE AMORPHOUS URATE Moderate /HPF (None Seen); WBC,URINE NONE SEEN /HPF (0-3)
[2017-11-02 09:18] LABS: ALANINE AMINOTRANSFERASE 111 U/L (12-78); ALBUMIN 2.4 g/dL (3.4-5.0); ALKALINE PHOSPHATASE 677 U/L (46-116); ASPARTATE AMINOTRANSFERASE 97 U/L (15-37); BILIRUBIN,DIRECT 0.3 mg/dL (0.0-0.2); BILIRUBIN,TOTAL 0.5 mg/dL (0.2-1.0); CALCIUM, SERUM 10.4 mg/dL (8.5-10.1); CARBON DIOXIDE 27 mmol/L (21-32); CHLORIDE 97 mmol/L (98-107); CREATININE 0.3 mg/dL (0.6-1.3); GLUCOSE 144 mg/dL (74-106); POTASSIUM 5.9 mmol/L (3.5-5.1); SODIUM SERUM 132 mmol/L (136-145); TOTAL PROTEIN, SERUM 8.8 g/dL (6.4-8.2); UREA NITROGEN, BLOOD 33 mg/dL (7-18)
[2017-11-02 09:20] LABS: TROPONIN I < 0.017 ng/mL (0.00-0.056)
--- NOTE | 2017-11-02 09:20 | NUR ---
MD MADE AWARE THAT HEART RATE STILL ON 160'S WITH BOLUS RECEIVED. NEW ORDERS CARRIED OUT. WILL MONITOR.
[2017-11-02] MEDS ORDERED: DILTIAZEM HCL 25 MG IV ONE (09:26)
--- NOTE | 2017-11-02 09:32 | NUR ---
PAGED DR. CRUZ
--- NOTE | 2017-11-02 09:45 | NUR ---
CARDIZEM 5MG IVP GIVEN HR WENT DOWN TO 130'S THEN BACK UP AGAIN AT 160'S. MADE AWARE.
[2017-11-02] MEDS ORDERED: CHOL50004 PO (09:55)
[2017-11-02] MEDS ORDERED: RANI150T43 GT (09:55)
[2017-11-02] MEDS ORDERED: AMIN30LI4 GT (09:55)
[2017-11-02] MEDS ORDERED: POTA20PA34 GT (09:55)
[2017-11-02] MEDS ORDERED: RIVA10TA GT (09:55)
[2017-11-02] MEDS ORDERED: ATOR10TA GT (09:55)
[2017-11-02] MEDS ORDERED: MULT-447 GT (09:55)
[2017-11-02] MEDS ORDERED: DILTIAZEM HCL IV 125 MG in IV D5W 100 ML IV PRN ×2 (10:00→13:00)
[2017-11-02] MEDS ORDERED: DILTIAZEM HCL 50 MG IV IV ONE (10:00)
[2017-11-02 10:03] LABS: INR 1.1 (0.87-1.13)
--- NOTE | 2017-11-02 10:10 | NUR ---
ORDERS FOR CARDIZEM DRIP STARTED. WILL CLOSELY MONITOR.
--- NOTE | 2017-11-02 10:25 | NUR ---
FAMILY MEMBERS AT BS AND UPDATED WITH POC. AWARE THAT HR WENT DOWN TO 104'S-150'S NOW BACK UP TO 160'S. ORDERS CARRIED OUT FOR FLUIDS. WILL MONITOR.
--- NOTE | 2017-11-02 10:47 | NUR ---
TITRATED CARDIZEM TO 15MG. WILL MONITOR.
--- NOTE | 2017-11-02 10:55 | NUR ---
TITRATED CARDIZEM DOWN TO 10MG. WILL MONITOR.
--- NOTE | 2017-11-02 11:05 | NUR ---
REPORT GIVEN TO NANCY CALLOWAY FOR ICU ROOM 261.
--- NOTE | 2017-11-02 11:18 | NUR ---
RT PT RECEIVED WITH A PORTEX 7 TRACH ON THE VENT WITH NOTED SETTINGS. PT IS AWAKE AND RESPONDS TO STIMULI WHEN SX'D. VENT IS PLUGGED INTO RED OUTLET. SKIP LOADER CUFF PRESSURE NOTED. VENT ALARMS ARE SET AND AUDIBLE WITH BVM BY BEDSIDE. NO RESPIRATORY DISTRESS NOTED AT THIS TIME, WILL CONTINUE TO MONITOR. Addendum: 11/02/17 at 1718 by MONIQUE SEWELL RT Amended: Links added.
--- NOTE | 2017-11-02 11:30 | NUR ---
SCRUM MASTER NOTES RECEIVED PATIENT FROM ER WITH DIAGNOSIS OF SEPSIS AND TACHYCARDIA , NON VERBAL , ABLE TO FOLLOW SIMPLE COMMANDS , NOT IN ACUTE DISTRESS , RESPIRATIONS EVEN AND UNLABORED WITH SPO2 OF 100% VIA MECHANICAL VENT SETTINGS ORDERED , TRACH OF PORTEX # [address] , AFIB UNCONTROLLED 140-160'S WITH CARDIZEM DRIP @ 10MG/HR INFUSING WELL @ R WRIST # 20, GT PATENT AND INTACT WITH CLEAR BROWN OUTPUT , FC INSERTED DRAINING VIA GRAVITY WITH CLEAR YELLOW URINE , SKIN ASSESSMENT DONE NOTED WITH BILATERAL GROIN EXCORIATION , BILATERAL BUTTOCKS OLD SCAR , AND GT SITE REDNESS , PLACED KCI MATTRESS , IV OF L HAND # 20 PATENT AND INTACT SL , PAGED DR CRUZ FOR ADMISSION ORDERS , AWAITING FOR CALL BACK , CHART CHECKED . WILL CONTINUE TO MONITOR .
--- NOTE | 2017-11-02 11:48 | NUR ---
HOME HEALTH CARE COORDINATOR NOTES CALLED DR CRUZ'S OFFICE , SPOKE WITH JAMES, FOLLOWED UP FOR ADMISSION ORDERS , PER JAMES SHE WILL TEXT MD , AWAITING FOR CALL BACK
--- NOTE | 2017-11-02 12:43 | NUR ---
AIRPORT RAMP ATTENDANT NOTES CALLED DR BATES OFFICE , SPOKE WITH JAMES, F/U ADMISSION ORDERS . LEFT CALL BACK # @ [phone] , AWAITING FOR CALL BACK
--- NOTE | 2017-11-02 13:55 | NUR ---
DIRECTOR APPAREL NOTES RECEIVED A CALL FROM DR CRUZ , ADMISSION ORDERS RECEIVED VIA TELEPHONE ORDER . PER MD OBTAINED CARDIOLOGY CONSULT UNDER DR SINGH FOR AFIB RVR , AND PULMONOLOGY CONSULT UNDER DR YOUNG FOR VENT MANAGEMENT , CONTINUE ALL HOME MEDS , AM LABS FOR [facility] CAR[facility] AND INSERT FC .
--- NOTE | 2017-11-02 13:56 | NUR ---
REFRIGERATION SERVICE INSPECTOR NOTES NOTIFIED DR YOUNG AND DR SINGH FOR CONSULT , MD 'S AWARE .
--- NOTE | 2017-11-02 14:07 | NUR ---
HOTEL RESERVATIONIST NOTES SPOKE WITH FRANCOISE PHARMACIST , VERIFIED IF HE RECEIVED THE FAXED HOME MEDS FOR THE PT , PER FRANCOISE HE RECEIVED THE FAX .
[2017-11-02] MEDS ORDERED: NA PHOS,M-B/NA PHOS,DI-BA 1 EA ENEMA RC PRN (14:30)
[2017-11-02] MEDS ORDERED: BISACODYL SUPP (10 MG) 10 MG/SUPP.RECT SUPP.RECT RC PRN (14:30)
[2017-11-02] MEDS ORDERED: IPRATROPIUM NEB FS 0.5 MG/2.5 ML AMPUL.NEB NEB PRN (14:30)
[2017-11-02] MEDS ORDERED: ALBUTEROL FS 2.5 MG/0.5 ML VIAL.NEB NEB PRN (14:30)
[2017-11-02] MEDS ORDERED: POLYVINYL ALCOHOL 15 ML BOTTLE EACHEYE PRN (14:30)
[2017-11-02] MEDS ORDERED: MISCELLANEOUS MED 1 EA EA GT PRN (14:30)
[2017-11-02] MEDS ORDERED: MAGNESIUM HYDROXIDE 30 ML UDC GT PRN (14:30)
[2017-11-02] MEDS: ACETAMINOPHEN 325 MG TABLET PO PRN (15:29)
[2017-11-02] MEDS: FERROUS SULFATE UDC 300 MG/5 ML UDC GT SCH (16:22)
[2017-11-02] MEDS: JEVITY 1.2 CAL 1,000 ML BOTTLE GT PRN (16:23)
--- NOTE | 2017-11-02 16:29 | NUR ---
TEAM DRIVER NOTES GT FEEDING OF JEVITY STARTED @ 30ML/HR , WILL TITRATED ACCORDINGLY TO ACHIEVE MAX DOSE OF 40ML/HR , WILL CONTINUE TO MONITOR
[2017-11-02] MEDS ORDERED: Z GUARD REMEDY 4 OZ OINT TP PRN (16:30)
[2017-11-02] MEDS ORDERED: SODIUM POLYSTYRENE SULFONATE 15 G/60 ML BOTTLE GT ONE (19:00)
[2017-11-02] MEDS ORDERED: DIGOXIN INJ 0.5 MG/2 ML AMPUL IV ONE (19:00)
[2017-11-02] MEDS: IPRATROPIUM NEB FS 0.5 MG/2.5 ML AMPUL.NEB NEB SCH (19:05)
[2017-11-02] MEDS: ALBUTEROL FS 2.5 MG/0.5 ML VIAL.NEB NEB SCH (19:05)
--- NOTE | 2017-11-02 19:08 | NUR ---
REMOTE SENSING TECHNICIAN NOTES SEEN AND EVALUATED BY DR SINGH , NOTIFIED REGARDING AFIB RVR , ON CARDIZEM @ 5MG/HR , K OF 5.9 . AWARE
[2017-11-02] MEDS ORDERED: CEFTRIAXONE 1GM BAG (ER ONLY) 1 GM/50 ML PIGGYBACK IV ONE (19:30)
[2017-11-02] MEDS ORDERED: IPRATROPIUM NEB FS 0.5 MG/2.5 ML AMPUL.NEB NEB SCH (19:30)
[2017-11-02] MEDS ORDERED: AMIODARONE 150 MG in IV D5W 100 ML IV ONE (20:00)
--- NOTE | 2017-11-02 20:00 | NUR ---
Patient is trach/vent dependent,resides at [facility] acute unit [phone].He is totally dependent with adl's, bedfast most of the time.Current dc plan is to dc back to [facility] once discharge. Addendum: 11/02/17 at 1999 by ANICETO GALEANA RN Amended: Links added.
[2017-11-02] MEDS: CEFTRIAXONE 1 G in IV D5W 50 ML IV SCH (20:26)
[2017-11-02] MEDS: LEVETIRACETAM SOL (5 ML) 100 MG/ML UDC GT SCH (20:34)
[2017-11-02] MEDS ORDERED: AMIODARONE 900 MG in IV D5W 482 ML IV PRN (21:00)
[2017-11-03] VITALS (74 sets, daily range): BP systolic 97–139; BP diastolic 59–94
[2017-11-03 00:10] LABS: CALCIUM, SERUM 8.6 mg/dL (8.5-10.1); CREATININE 0.3 mg/dL (0.6-1.3); POTASSIUM 3.8 mmol/L (3.5-5.1)
[2017-11-03 00:14] LABS: MAGNESIUM 2.3 mg/dL (1.8-2.4); PHOSPHORUS 2.5 mg/dL (2.5-4.9)
[2017-11-03] MEDS: ALBUTEROL FS 2.5 MG/0.5 ML VIAL.NEB NEB SCH ×4 (01:06→19:30)
[2017-11-03] MEDS: IPRATROPIUM NEB FS 0.5 MG/2.5 ML AMPUL.NEB NEB SCH ×4 (01:06→20:04)
[2017-11-03 04:38] LABS: APPEARANCE,URINE SL CLOUDY (CLEAR); BILIRUBIN,URINE NEGATIVE (NEGATIVE); BLOOD, URINE 3+ Ery/uL (NEGATIVE); COLOR,URINE YELLOW (YELLOW); KETONES,URINE NEGATIVE (NEGATIVE); LEUKOCYTE ESTERASE ,URINE TRACE (NEGATIVE); NITRITE, URINE NEGATIVE (NEGATIVE); PROTEIN,URINE 1+ mg/dl (NEGATIVE); UGLUCOSE NEGATIVE (NEGATIVE); UROBILINOGEN,URINE 0.2 EU/dL (0.2)
[2017-11-03 04:50] LABS: BILIRUBIN,DIRECT 0.2 mg/dL (0.0-0.2); BILIRUBIN,TOTAL 0.4 mg/dL (0.2-1.0); CREATININE 0.3 mg/dL (0.6-1.3); MAGNESIUM 2.4 mg/dL (1.8-2.4); PHOSPHORUS 2.7 mg/dL (2.5-4.9); POTASSIUM 3.7 mmol/L (3.5-5.1); TOTAL PROTEIN, SERUM 7.5 g/dL (6.4-8.2)
[2017-11-03 05:00] LABS: THYROID STIMULATING HORMONE 0.755 uIU/mL (0.358-3.74)
[2017-11-03 05:01] LABS: BACTERIA,URINE None seen /HPF (None Seen); RBC,URINE 81-100 /HPF (0-2); SQUAMOUS EPITHELIAL CELL,UR Few /HPF (None Seen)
[2017-11-03 05:05] LABS: BASOPHILS # (AUTO) 0.1 /CMM (0.0-0.2); BASOPHILS % (AUTO) 0.5 % (0.0-2.0); HEMATOCRIT 42 % (39-51); HEMOGLOBIN 12.5 g/dL (13.5-17.5); LYMPHOCYTES # (AUTO) 1.8 /CMM (0.8-4.8); LYMPHOCYTES % (AUTO) 17.1 % (20.0-44.0); MEAN CORPUSCULAR HEMOGLOBIN 28 PG (26.0-33.0); MEAN CORPUSCULAR HGB CONC 30 g/dl (31.0-36.0); MEAN CORPUSCULAR VOLUME 95 fL (80-96); MONOCYTES # (AUTO) 1.4 /CMM (0.1-1.30); MONOCYTES % (AUTO) 13.2 % (2.0-12.0); NEUTROPHILS % (AUTO) 68.2 % (43.0-81.0); PLATELET COUNT (AUTO) 492 /CMM (150-450); RDW COEFFICIENT OF VARIATION 18.9 (11.5-15.0); RED BLOOD CELL COUNT(AUTO) 4.42 MIL/uL (4.5-6.0); WHITE BLOOD COUNT (AUTO) 10.3 K/uL (4.3-11.0)
--- NOTE | 2017-11-03 05:27 | NUR ---
PT RECEIVED WITH A PORTEX 7 TRACH ON THE VENT WITH NOTED SETTINGS. PT IS AWAKE AND RESPONDS TO STIMULI WHEN SX'D. VENT IS PLUGGED INTO RED OUTLET. SALESPERSON HEARING AIDS CUFF PRESSURE NOTED. VENT ALARMS ARE SET AND AUDIBLE WITH BVM BY BEDSIDE.PT TX WERE HELD DUE TO HR > 150 BPM BRODIE HOPKINS. NO RESPIRATORY DISTRESS NOTED AT THIS TIME, WILL CONTINUE TO MONITOR.
--- NOTE | 2017-11-03 06:29 | NUR ---
RN NOTE PT REMAINS IN NO ACUTE DISTRESS IN BED. PT DID NOT HAVE ANY SIGNIFICANT CHANGE IN CONDITION DURING SHIFT. PT TOLERATED VENT SETTING WELL. ALL NEEDS MET, ALL ORDERS CARRIED OUT. WILL ENDORSE CARE TO AM RN FOR CONTINUITY OF CARE.
--- NOTE | 2017-11-03 07:15 | NUR ---
ZIPPER LINING FOLDER NOTES RECEIVED PATIENT AOX2 , ABLE TO FOLLOW SIMPLE COMMANDS , NOT IN ACUTE DISTRESS , RESPIRATIONS EVEN AND UNLABORED WITH SPO2 OF 100% VIA MECHANICAL VENT SETTINGS ORDERED , TRACH OF PORTEX # [address] , AFIB UNCONTROLLED 140 WITH AMIODARONE DRIP @ 0.5MG @ R WRIST # 20, GT PATENT AND INTACT WITH JEVITY @ 40ML/HR INFUSING WELL WITH NO RESIDUALS NOTED , FC DRAINING VIA GRAVITY WITH CLEAR YELLOW URINE , IV OF L HAND # 20 PATENT AND INTACT WIT NS @ TKO , WILL CONTINUE TO MONITOR.
--- NOTE | 2017-11-03 08:00 | NUR ---
X RAY EXAMINER OF AIRCRAFT NOTES LEFT A MESSAGE TO DR CRUZ REGARDING AM LABS , AWAITING FOR CALL BACK
[2017-11-03] MEDS: FERROUS SULFATE UDC 300 MG/5 ML UDC GT SCH ×2 (08:43→16:02)
[2017-11-03] MEDS: LACTULOSE 10 G/15 ML UDC (PYXIS) GT SCH (08:43)
[2017-11-03] MEDS: FAMOTIDINE (20 MG) 20 MG TABLET GT SCH (08:43)
[2017-11-03] MEDS: DOCUSATE SODIUM LIQ 100 MG/10 ML UDC GT SCH (08:43)
[2017-11-03] MEDS: CHOLECALCIFEROL 1,000 UNIT TABLET (VIT D3) GT SCH (08:43)
[2017-11-03] MEDS: LEVETIRACETAM SOL (5 ML) 100 MG/ML UDC GT SCH ×2 (08:43→20:26)
[2017-11-03] MEDS: MULTIVIT, IRON, MIN NO. 8, FA 1 TAB GT SCH (08:44)
[2017-11-03] MEDS: PROSOURCE / PROSTAT (PYXIS) 30 ML UDC GT SCH (08:45)
[2017-11-03] MEDS ORDERED: ATORVASTATIN 10 MG TABLET GT SCH (09:00)
[2017-11-03] MEDS ORDERED: ACETAMINOPHEN 325 MG TABLET PO SCH (09:00)
[2017-11-03] MEDS ORDERED: POTASSIUM CHLORIDE 20 MEQ POWDER PACKET GT SCH (09:00)
--- NOTE | 2017-11-03 10:00 | NUR ---
REGENERATOR OPERATOR NOTES LEFT A MESSAGE TO DR SINGH REGARDING UNCONTROLLED AFIB OF 120-140 'S ON AMIODARONE DRIP @ 0.5MG , AWAITING FOR CALL BACK
--- NOTE | 2017-11-03 10:10 | NUR ---
OIL SEAL ASSEMBLER NOTES SEEN AND EVALUATED BY DR YOUNG , DISCUSSED LABS , AFEBRILE , TOLERATING CURRENT VENT SETTINGS , AFIB UNCONTROLLED 120-140'S ON BEDSIDE MONITOR , ON AMIODRIP @ 0.5MG , PT PREVIOUSLY ON CARDIZEM DRIP , PATIENT IS AOX2 ABLE TO FOLLOW COMMANDS , MD AWARE , FIO2 TITRATED TO 40% PER MD'S ORDER
[2017-11-03] MEDS: THEOPHYLLINE ANHYDROUS 80 MG/15 ML UDC GT SCH ×2 (10:40→16:02)
--- NOTE | 2017-11-03 11:15 | NUR ---
ELECTRICAL PROSPECTING OPERATOR NOTES NOTIFIED DR COBOS THAT PT STILL HAVING UNCONTROLLED AFIB 120-150'S , ON AMIODARONE DRIP @ 0.5MG STARTED @ 2026 YESTERDAY WITH AMIO BOLUS , BP OF 120/72 , AWAITING FOR CALL BACK
--- NOTE | 2017-11-03 11:45 | NUR ---
TRANSFER COORDINATOR NOTES RECEIVED ORDERS UNDER DR COBOS TO DC AMIO DRIP , GIVE 20MG CARDIZEM DRIP AND START CARDIZEM DRIP PER PROTOCOL , ORDERS CARRIED OUT
[2017-11-03] MEDS ORDERED: DILTIAZEM HCL 25 MG IV IV ONE (12:00)
--- NOTE | 2017-11-03 12:00 | NUR ---
DOORS PREFITTER NOTES PT STABLE S/P CARDIZEM 20MG IVP , PT HR GOES DOWN FROM 175 - 85 AFIB - AFLUTTER , BP OF 108/59 , SPO2 OF 95% , RR OF 19, WILL CONTINUE TO MONITOR
[2017-11-03] MEDS: DILTIAZEM HCL IV 125 MG in IV D5W 100 ML IV PRN ×2 (12:17→20:25)
[2017-11-03] MEDS ORDERED: AMIODARONE 900 MG in IV D5W 482 ML IV PRN (12:30)
[2017-11-03] MEDS ORDERED: AMIODARONE 150 MG in IV D5W 100 ML IV ONE (12:30)
--- NOTE | 2017-11-03 12:30 | NUR ---
VICTIM ADVOCATE NOTES PER DR MCKEON CONTINUE CARDIZEM DRIP BP TOLERATES FOR RATE CONTROL , TITRATION , MAX DOSE 20MG /HR , TOGETHER WITH AMIODARONE , DISCUSSED THAT PT IS ON AMIODARONE @ 0.5MG/HR DRIP STARTED @ 20:17 YESTERDAY , PER GIVE AMIODARONE BOLUS AND DRIP PER PROTOCOL STARTING @ 1MG/MIN X6 HOURS AND CONTINUE 0.5MG/MIN .
[2017-11-03] MEDS: RIVAROXABAN 10 MG TABLET GT SCH (16:02)
--- NOTE | 2017-11-03 16:19 | NUR ---
TRANSPORTATION JOB TITLES NOTES RECEIVED AN ORDER IN REGARDS OF NA OF 128 , PER MD START PT ON NS @ 100ML/HR , ORDER CARRIED OUT
[2017-11-03] MEDS: IV NS 0.9% 1,000 ML IV PRN (16:21)
--- NOTE | 2017-11-03 16:28 | NUR ---
RT NOTE: PATIENT RECEIVED WITH #7 PORTEX TRACH ON MECHANICAL VENT. VENT ALARMS VERIFIED AND AUDIBLE. SUCTIONED AND LAVAGED SMALL-MODERATE AMOUNT OF THICK FARLEY SECRETIONS. AMBU BAG AT [facility].
[2017-11-03] MEDS: CEFTRIAXONE 1 G in IV D5W 50 ML IV SCH (20:26)
--- NOTE | 2017-11-03 20:52 | NUR ---
RECEIVED PT TRACHED PTX 7 ON VENT. PT IS AWAKE, NO RESP DISTRESS. PT TOLERATING VENT SETTINGS. SX'D FOR SML AMT OF THIN WHITE SECRETIONS. VENT ALARMS SET AND AUDIBLE. AMBU BAG AT BEDSIDE. VENT PLUGGED INTO RED OUTLET. WILL CONTINUE TO MONITOR. Addendum: 11/03/17 at 2053 by SIVAN ORTEGA RT Amended: Links added.
[2017-11-04] VITALS (63 sets, daily range): BP systolic 95–193; BP diastolic 45–176
--- NOTE | 2017-11-04 | NUR ---
FUEL STORAGE TECHNICIAN - PT.IS TRACHED/VENTED/PEGGED. PT. HAS COPIOUS AMTS OF SX'S. PT. "GRUNTS" WHEN HE NEEDS SUCTIONING. AFEBRILE. MORBIDLY OBESE. PT. CAN MOVE BUE'S WHEN TRYING TO COMMUNICATE. HEART MONITOR SHOWS AFLUTTER. PT.IS ON CARDIZEM GTT. AT 20MG/HR & AMIODARONE GTT. AT 0.5 MG/HR. EXTRACT WRINGER-AMANDA STARTED AN IV ON LEFT/POST.UE. BOTH IV SITES ARE PATENT, BUT LOOK LIKE THEY WON'T LAST LONG. MIDLINE ORDERED. JEFF CATH TO GRAVITY. SKIN ISSUES NOTED. CONT.POC.
[2017-11-04] MEDS ORDERED: DILTIAZEM HCL 25 MG IV ONE ×2 (00:10→00:12)
[2017-11-04] MEDS: IPRATROPIUM NEB FS 0.5 MG/2.5 ML AMPUL.NEB NEB SCH ×4 (01:00→19:30)
[2017-11-04] MEDS: DILTIAZEM HCL IV 125 MG in IV D5W 100 ML IV PRN ×2 (01:01→01:05)
[2017-11-04] MEDS: ALBUTEROL FS 2.5 MG/0.5 ML VIAL.NEB NEB SCH ×4 (01:01→19:30)
--- NOTE | 2017-11-04 01:01 | NUR ---
ALBUTEROL NOT GIVEN DO TO HR 120-130'S. RN NOTIFIED.
[2017-11-04] MEDS: IV NS 0.9% 1,000 ML IV PRN (03:25)
[2017-11-04 04:28] LABS: BASOPHILS # (AUTO) 0.1 /CMM (0.0-0.2); BASOPHILS % (AUTO) 0.4 % (0.0-2.0); EOSINOPHILS % (AUTO) 0.8 % (0.0-6.0); HEMATOCRIT 40 % (39-51); HEMOGLOBIN 12.5 g/dL (13.5-17.5); LYMPHOCYTES # (AUTO) 2.2 /CMM (0.8-4.8); LYMPHOCYTES % (AUTO) 17.4 % (20.0-44.0); MEAN CORPUSCULAR HEMOGLOBIN 30 PG (26.0-33.0); MEAN CORPUSCULAR HGB CONC 31 g/dl (31.0-36.0); MEAN CORPUSCULAR VOLUME 94 fL (80-96); MONOCYTES # (AUTO) 1.4 /CMM (0.1-1.30); MONOCYTES % (AUTO) 11.3 % (2.0-12.0); NEUTROPHILS # (AUTO) 8.7 /CMM (1.8-8.9); NEUTROPHILS % (AUTO) 70.1 % (43.0-81.0); PLATELET COUNT (AUTO) 523 /CMM (150-450); RDW COEFFICIENT OF VARIATION 18.4 (11.5-15.0); RED BLOOD CELL COUNT(AUTO) 4.24 MIL/uL (4.5-6.0); WHITE BLOOD COUNT (AUTO) 12.5 K/uL (4.3-11.0)
[2017-11-04 04:41] LABS: CALCIUM, SERUM 8.8 mg/dL (8.5-10.1); CREATININE 0.3 mg/dL (0.6-1.3); MAGNESIUM 2.2 mg/dL (1.8-2.4); PHOSPHORUS 1.9 mg/dL (2.5-4.9); POTASSIUM 3.9 mmol/L (3.5-5.1)
--- NOTE | 2017-11-04 07:00 | NUR ---
MACHINE FILLER SERVICER - PT. REC'D A BEDBATH AT 4AM. SKIN CARE NOTED. REPORT ENDORSED TO CRIS CALLOWAY FOR SHERIE.
--- NOTE | 2017-11-04 08:00 | NUR ---
Patient on amiodarone drip, and cardizem drip complete and no other available per pharmacy. Patient remains atrial fibrillation, and HR 129/min. Maurice Teran RN
[2017-11-04] MEDS: LACTULOSE 10 G/15 ML UDC (PYXIS) GT SCH (08:51)
[2017-11-04] MEDS: DOCUSATE SODIUM LIQ 100 MG/10 ML UDC GT SCH (08:51)
[2017-11-04] MEDS: CHOLECALCIFEROL 1,000 UNIT TABLET (VIT D3) GT SCH (08:52)
[2017-11-04] MEDS: FAMOTIDINE (20 MG) 20 MG TABLET GT SCH (08:52)
[2017-11-04] MEDS: LEVETIRACETAM SOL (5 ML) 100 MG/ML UDC GT SCH ×2 (08:52→20:39)
[2017-11-04] MEDS: FERROUS SULFATE UDC 300 MG/5 ML UDC GT SCH ×2 (08:52→17:30)
[2017-11-04] MEDS: MULTIVIT, IRON, MIN NO. 8, FA 1 TAB GT SCH (08:52)
[2017-11-04] MEDS: PROSOURCE / PROSTAT (PYXIS) 30 ML UDC GT SCH (08:53)
[2017-11-04] MEDS: THEOPHYLLINE ANHYDROUS 80 MG/15 ML UDC GT SCH ×2 (09:02→17:27)
--- NOTE | 2017-11-04 10:00 | NUR ---
Patient repositioned to comfort, cleaned and linens changed. Patient suctioned for thin white secretions, and oral secretions. Maurice Teran RN
--- NOTE | 2017-11-04 12:00 | NUR ---
Patient amiodarone complete earlier, and I did call Dr Burnham for rapid heart rate, and he visits patient, updated on present condition, vss, he observes rapid heart rate, and orders written. Maurice Teran RN
[2017-11-04] MEDS: DILTIAZEM HCL 30 MG TABLET PO SCH ×3 (12:49→23:41)
--- NOTE | 2017-11-04 14:00 | NUR ---
Family visits patient, I updated on present condition, and updated that patient receiving antibiotics. Maurice Teran RN
--- NOTE | 2017-11-04 16:00 | NUR ---
Patient incont of moderate amount of stool, bathed, and complete linen change. Maurice Teran RN
[2017-11-04] MEDS ORDERED: NEUTRA PHOS 1 POWD.PACKET GT ONE (16:30)
[2017-11-04] MEDS: RIVAROXABAN 10 MG TABLET GT SCH (17:30)
--- NOTE | 2017-11-04 18:00 | NUR ---
Patient suctioned frequently orally and via trach. He has large amounts of thin white secretions, and oral secretions. He continues to have a rapid atrial fibrillation. He has been started on po cardizem, and has received dose at noon, and now. per . Maurice Teran RN
--- NOTE | 2017-11-04 20:19 | NUR ---
RECEIVED PT TRACHED PTX 7 ON VENT. PT IS AWAKE, NO RESP DISTRESS. PT TOLERATING VENT SETTINGS. SX'D FOR MOD AMT OF THIN WHITE SECRETIONS. VENT ALARMS SET AND AUDIBLE. AMBU BAG AT BEDSIDE. VENT PLUGGED INTO RED OUTLET. WILL CONTINUE TO MONITOR. Addendum: 11/04/17 at 2020 by SIVAN ORTEGA RT Amended: Links added.
[2017-11-04] MEDS: CEFTRIAXONE 1 G in IV D5W 50 ML IV SCH (20:33)
--- NOTE | 2017-11-04 22:45 | NUR ---
SLIP MIXER. RECEIVED THE PT UNCONTROLLED AFIB. RATE WAS 163. TAB CARDIZEM GT GIVEN AT 2010.
[2017-11-04] MEDS: ACETAMINOPHEN 325 MG TABLET PO PRN (23:40)
[2017-11-05] VITALS (55 sets, daily range): BP systolic 81–147; BP diastolic 41–103
[2017-11-05] MEDS: IPRATROPIUM NEB FS 0.5 MG/2.5 ML AMPUL.NEB NEB SCH ×4 (01:00→20:15)
[2017-11-05] MEDS: ALBUTEROL FS 2.5 MG/0.5 ML VIAL.NEB NEB SCH ×4 (01:01→20:15)
[2017-11-05] MEDS ORDERED: SPIRONOLACTONE 25 MG TABLET PO ONE (02:15)
[2017-11-05] MEDS ORDERED: clonazePAM 0.5 MG TABLET PO PRN (02:30)
[2017-11-05 04:32] LABS: BASOPHILS # (AUTO) 0.1 /CMM (0.0-0.2); BASOPHILS % (AUTO) 0.4 % (0.0-2.0); EOSINOPHILS % (AUTO) 0.3 % (0.0-6.0); HEMATOCRIT 39 % (39-51); HEMOGLOBIN 12.1 g/dL (13.5-17.5); LYMPHOCYTES # (AUTO) 1.7 /CMM (0.8-4.8); LYMPHOCYTES % (AUTO) 11.6 % (20.0-44.0); MEAN CORPUSCULAR HEMOGLOBIN 29 PG (26.0-33.0); MEAN CORPUSCULAR HGB CONC 32 g/dl (31.0-36.0); MEAN CORPUSCULAR VOLUME 93 fL (80-96); MONOCYTES # (AUTO) 1.1 /CMM (0.1-1.30); MONOCYTES % (AUTO) 7.5 % (2.0-12.0); NEUTROPHILS # (AUTO) 11.9 /CMM (1.8-8.9); NEUTROPHILS % (AUTO) 80.2 % (43.0-81.0); PLATELET COUNT (AUTO) 571 /CMM (150-450); RDW COEFFICIENT OF VARIATION 18.6 (11.5-15.0); RED BLOOD CELL COUNT(AUTO) 4.13 MIL/uL (4.5-6.0); WHITE BLOOD COUNT (AUTO) 14.8 K/uL (4.3-11.0)
[2017-11-05 04:43] LABS: CREATININE 0.3 mg/dL (0.6-1.3); POTASSIUM 4.9 mmol/L (3.5-5.1)
[2017-11-05] MEDS ORDERED: DILTIAZEM HCL 30 MG TABLET ONE (05:33)
[2017-11-05] MEDS: DILTIAZEM HCL 30 MG TABLET PO SCH ×4 (05:37→23:05)
[2017-11-05] MEDS: IV NS 0.9% 250 ML IV PRN (05:58)
[2017-11-05] MEDS: DOCUSATE SODIUM LIQ 100 MG/10 ML UDC GT SCH (08:18)
[2017-11-05] MEDS: LACTULOSE 10 G/15 ML UDC (PYXIS) GT SCH (08:18)
[2017-11-05] MEDS: LEVETIRACETAM SOL (5 ML) 100 MG/ML UDC GT SCH ×2 (08:18→20:38)
[2017-11-05] MEDS: FERROUS SULFATE UDC 300 MG/5 ML UDC GT SCH ×2 (08:18→16:37)
[2017-11-05] MEDS: CHOLECALCIFEROL 1,000 UNIT TABLET (VIT D3) GT SCH (08:18)
[2017-11-05] MEDS: FAMOTIDINE (20 MG) 20 MG TABLET GT SCH (08:19)
[2017-11-05] MEDS: MULTIVIT, IRON, MIN NO. 8, FA 1 TAB GT SCH (08:19)
[2017-11-05] MEDS: PROSOURCE / PROSTAT (PYXIS) 30 ML UDC GT SCH (08:29)
[2017-11-05] MEDS: ENALAPRIL MALEATE (10 MG) 10 MG TABLET PO SCH ×2 (08:29→20:38)
[2017-11-05] MEDS: THEOPHYLLINE ANHYDROUS 80 MG/15 ML UDC GT SCH ×2 (09:23→16:38)
[2017-11-05] MEDS ORDERED: AMIODARONE 900 MG in IV D5W 482 ML IV PRN (11:00)
[2017-11-05] MEDS ORDERED: AMIODARONE 150 MG in IV D5W 100 ML IV ONE (11:00)
[2017-11-05] MEDS ORDERED: Magnesium 1GM/D5W 100ML PREMIX 100 ML IV SCH ×2 (11:00→11:30)
--- NOTE | 2017-11-05 12:43 | NUR ---
RN NOTE 0720: Received patient awake, A/ert to name, able to follow simple commands. With trache to vent, tolerated settings well. with GT intact, feeding tolerated, no residuals, kept HOB elevated. Afib 80-100's, controlled at this time. PIVs intact. 0930: Patient back to Afib up to 130's, will continue to monitor. 1000: Noted patient with frequet V tach runs, made Dr. Burnham aware, with new order to restart on Amio bolus and drip. Made CN aware. 1130: Started patient on Amio bolus the drip. S/E by Dr. Echols, informed patient's condition, with order to give 1gm Mg IVPB, although Mg level still pending. Family at bedside, aware for the new order. 1230: Afib controlled at this time. On Amio drip 1mg ongoing. No any significant changes noted at this time. Less Vtach runs seen. Kept clean, warm and dry. Needs attended. Kept call light at reach.
[2017-11-05] MEDS: RIVAROXABAN 10 MG TABLET GT SCH (16:38)
--- NOTE | 2017-11-05 18:55 | NUR ---
RN NOTE S/E by Dr. Burnham, ordered EKG, shows Afib 113, aware NNO, continue Abdirahman simpson protocol per . Will endorse. Addendum: 11/05/17 at 1856 by RANDI JOHNSON RN Made aware held Cardizem 1800 dose for SBP 90-100 borderline.
--- NOTE | 2017-11-05 20:18 | NUR ---
pt received on vent via trach with charted settings. airway patent. secure via trach tie. ambu bag at bedside. alarms set and audible, disconnect alarms checked plugged into red outlet suctioned a small amount of thin white secretions. pt hob at 30 degrees. suctioned oral secretion from pts mouth Addendum: 11/05/17 at 2019 by LOGAN CHAUHAN RT Amended: Links added.
[2017-11-05] MEDS: CEFTRIAXONE 1 G in IV D5W 50 ML IV SCH (20:38)
[2017-11-06] VITALS (41 sets, daily range): BP systolic 98–134; BP diastolic 44–72
[2017-11-06] MEDS: ALBUTEROL FS 2.5 MG/0.5 ML VIAL.NEB NEB SCH ×4 (02:17→19:36)
[2017-11-06] MEDS: IPRATROPIUM NEB FS 0.5 MG/2.5 ML AMPUL.NEB NEB SCH ×4 (02:17→19:36)
--- NOTE | 2017-11-06 02:46 | NUR ---
RN NOTE RECEIVED ORDERS FROM DR CRUZ TO START PT ON CLINDAMYACIN IV 600MG Q8H TO START AT 0800 11/06/2017. READBACK ORDER PERFORMED AND ENTERED.
[2017-11-06 04:49] LABS: BASOPHILS # (AUTO) 0.1 /CMM (0.0-0.2); BASOPHILS % (AUTO) 0.6 % (0.0-2.0); HEMATOCRIT 38 % (39-51); HEMOGLOBIN 12.1 g/dL (13.5-17.5); LYMPHOCYTES # (AUTO) 2.2 /CMM (0.8-4.8); LYMPHOCYTES % (AUTO) 16.4 % (20.0-44.0); MEAN CORPUSCULAR HEMOGLOBIN 30 PG (26.0-33.0); MEAN CORPUSCULAR HGB CONC 32 g/dl (31.0-36.0); MEAN CORPUSCULAR VOLUME 94 fL (80-96); MONOCYTES % (AUTO) 7.2 % (2.0-12.0); NEUTROPHILS % (AUTO) 74.8 % (43.0-81.0); PLATELET COUNT (AUTO) 570 /CMM (150-450); RDW COEFFICIENT OF VARIATION 18.8 (11.5-15.0); RED BLOOD CELL COUNT(AUTO) 4.02 MIL/uL (4.5-6.0); WHITE BLOOD COUNT (AUTO) 13.4 K/uL (4.3-11.0)
[2017-11-06 05:08] LABS: CALCIUM, SERUM 8.7 mg/dL (8.5-10.1); CREATININE 0.3 mg/dL (0.6-1.3); MAGNESIUM 2.5 mg/dL (1.8-2.4); PHOSPHORUS 2.6 mg/dL (2.5-4.9); POTASSIUM 4.5 mmol/L (3.5-5.1)
[2017-11-06] MEDS: DILTIAZEM HCL 30 MG TABLET PO SCH ×4 (05:27→23:56)
--- NOTE | 2017-11-06 07:12 | NUR ---
RN INITIAL NOTES: Rec'd pt on bed, not in any distress, A/O x1. On MV via trach, sating at 100%. On telemonitor, ST 112bpm. Has PEG patent & intact, on cont GTF Jevity 1.2 x 40cc/hr infusing well, no residual noted upon checking. Has 2 IV line access: RFA G22 - noted leaking & R wrist G20, w/ Amio drip running. Has FC draining to BSB. Provided comfort & safety measures. Bed kept low & in locked pos. Call light placed w/in reach. Will cont to monitor & attend pt needs.
--- NOTE | 2017-11-06 07:30 | NUR ---
RN NOTES RECEIVED PT ASLEEP ON BED. AOX2 FOLLOWS COMMAND ABLE TO EXPRESS FEELINGS WHEN AWAKE. W/TRACH PORTEX 7 CONNECTED TO VENT SETTING OF AC 14, TV 450 FIO2 40% PEEP 5. TOLERATED WELL SATURATION 100%. ST ON TELE MONITOR HR 113 GENERALIZED EDEMA PRESENT. IV SITE ON LFA G 20 AND LEFT FOOT G 22 SL INTACT AND PATENT. F/C DRAINED W/ YELLOW CLEAR COLOR URINE. GTF OF JEVITY 1.2 @ 40 ML/HR TOLERATED WELL PATENCUY CHECKE. NO RESIDUAL NOTED. KEPT HOB ELEVATED. REPOSITIONED PT PT COMFORTABLE KEPT PT CLEAN AND DRY. CALL LIGHT KEPT WITHIN EASY REACH. BED LOCKED, WILL CONTINUE TO MONITOR. Addendum: 11/06/17 at 2020 by CATE TIERNEY RN ACCIDENTALY PUT ON THE WRONG TIME.
[2017-11-06] MEDS ORDERED: LEVOFLOXACIN 750 MG /D5W 150ML 750 MG in PREMIX 1 EA IV SCH (08:00)
[2017-11-06] MEDS ORDERED: CLINDAMYCIN IV RTU IN D5W 900 MG/50 ML PIGGYBACK IV SCH (08:00)
[2017-11-06] MEDS: CHOLECALCIFEROL 1,000 UNIT TABLET (VIT D3) GT SCH (08:15)
[2017-11-06] MEDS: DOCUSATE SODIUM LIQ 100 MG/10 ML UDC GT SCH (08:15)
[2017-11-06] MEDS: FERROUS SULFATE UDC 300 MG/5 ML UDC GT SCH ×2 (08:15→16:52)
[2017-11-06] MEDS: FAMOTIDINE (20 MG) 20 MG TABLET GT SCH (08:16)
[2017-11-06] MEDS: THEOPHYLLINE ANHYDROUS 80 MG/15 ML UDC GT SCH (08:16)
[2017-11-06] MEDS: MULTIVIT, IRON, MIN NO. 8, FA 1 TAB GT SCH (08:16)
[2017-11-06] MEDS: LEVETIRACETAM SOL (5 ML) 100 MG/ML UDC GT SCH ×2 (08:16→20:50)
[2017-11-06] MEDS: LACTULOSE 10 G/15 ML UDC (PYXIS) GT SCH (08:16)
[2017-11-06] MEDS: ENALAPRIL MALEATE (10 MG) 10 MG TABLET PO SCH ×2 (08:17→20:51)
[2017-11-06] MEDS: PROSOURCE / PROSTAT (PYXIS) 30 ML UDC GT SCH (08:17)
--- NOTE | 2017-11-06 08:47 | NUR ---
WOUND CARE CONSULT: PT PRESENTS WITH BILATERAL LOWER BUTTOCK SCARRING, REDNESS/RASH TO GROIN AREAS. PT HAS LARGE ABDOMEN AND NOTED TO HAVE TIGHT SHINY SKIN ON LOWER LEGS WITH 4+ PITTING EDEMA TO FEET. ALL SKIN CARE AND SKIN PROTECTION RECOMMENDATIONS DISCUSSED WITH NURSING STAFF. PT ON FIRST STEP [facility]. WILL SEE PRN. LOPEZ IN AGREEMENT WITH PLAN OF CARE. Addendum: 11/06/17 at 0850 by TEAGAN LAZARO WNDNU Amended: Links added.
--- NOTE | 2017-11-06 09:00 | NUR ---
Pt seen & examined by Dr. Cleveland & updated about pt status.
[2017-11-06] MEDS: CLINDAMYCIN IV RTU IN D5W 50 ML IV SCH ×3 (09:43→23:55)
[2017-11-06] MEDS: CLOTRIMAZOLE 1% 15 GM TUBE TP SCH ×2 (09:43→16:53)
--- NOTE | 2017-11-06 12:41 | NUR ---
Pt seen & examined by Dr. Burnham w/ orders made & carried out.
[2017-11-06] MEDS: FUROSEMIDE 20 MG/2 ML VIAL IV SCH ×2 (13:04→16:53)
[2017-11-06] MEDS: AMIODARONE HCL 200 MG TABLET PO SCH ×2 (13:04→20:50)
[2017-11-06 15:25] LABS: ABG BASE EXCESS 7.1 mmol/L; ABG OXYGEN SATURATION 94.6 % (92.0-98.5); ABG PCO2 46.9 mmHg (35.0-45.0); ABG PH 7.452 (7.350-7.450); ABG PO2 68.4 mmHg (75.0-100.0); AaDO2 162.9 mmHg; COHb 0.3 % (0.5-1.5); MetHb 0.4 % (0.0-1.5); O2Hb 93.9 % (94.0-97.0); PEEP,BG 5 cm H2O; SITE, ABG Right Radial; VENT MODE, BG AC 14 450 +5 40%; VT, ABG 450 mL
--- NOTE | 2017-11-06 15:45 | NUR ---
PT RECEIVED TRACHED ON MECHANICAL VENT W/ SETTINGS PER MD. VENT IN RED OUTLET, VENT ALARMS CHECKED AND AUDIBLE. TRACH TUBE IN PLACE, PATENT, CLEAN AND DRY. FACILITIES PAINTER DONE, BREATH SOUNDS EQUAL DIMINISHED. PT SX'ED AND LAVAGED PRN. MEDS GIVEN INLINE PER ORDER. NO RESP DISTRESS NOTED. PLAN IS TO CONTINUE CURRENT CARE UNDER MD ORDERS AND MONITOR FOR CHANGES. Addendum: 11/06/17 at 1546 by MANISH OLIVO RT Amended: Links added.
[2017-11-06] MEDS: RIVAROXABAN 10 MG TABLET GT SCH (16:53)
--- NOTE | 2017-11-06 18:48 | NUR ---
RN CLOSING NOTES: No acute changes noted w/in shift. Pt tolerated MV settings via trach, no SOB. On telemonitor, still ST. PEG kept patent & intact, on cont GTF Jevity 1.2 x 40cc/hr infusing well. 2 IV line access kept patent & intact w/ no s/sx of infection/infiltration: LFA G20 & L ft G22, SL, off Amio drip. FC draining to BSB. Kept well rested. Needs attended. Bed kept low & in locked pos. Call light placed w/in reach. Will endorse to PM RN for SHERIE.
--- NOTE | 2017-11-06 19:40 | NUR ---
RN NOTES RECEIVED PT ASLEEP ON BED. AOX2 FOLLOWS COMMAND ABLE TO EXPRESS FEELINGS WHEN AWAKE. W/TRACH PORTEX 7 CONNECTED TO VENT SETTING OF AC 14, TV 450 FIO2 40% PEEP 5. TOLERATED WELL SATURATION 100%. ST ON TELE MONITOR HR 113 GENERALIZED EDEMA PRESENT. IV SITE ON LFA G 20 AND LEFT FOOT G 22 SL INTACT AND PATENT. F/C DRAINED W/ YELLOW CLEAR COLOR URINE. GTF OF JEVITY 1.2 @ 40 ML/HR TOLERATED WELL PATENCUY CHECKE. NO RESIDUAL NOTED. KEPT HOB ELEVATED. REPOSITIONED PT PT COMFORTABLE KEPT PT CLEAN AND DRY. CALL LIGHT KEPT WITHIN EASY REACH. BED LOCKED, WILL CONTINUE TO MONITOR.
--- NOTE | 2017-11-06 20:45 | NUR ---
RECEIVED PT TRACHED PTX 7 ON VENT. PT IS AWAKE, NO RESP DISTRESS. PT TOLERATING VENT SETTINGS. SX'D FOR MOD AMT OF THIN WHITE SECRETIONS. VENT ALARMS SET AND AUDIBLE. AMBU BAG AT BEDSIDE. VENT PLUGGED INTO RED OUTLET. WILL CONTINUE TO MONITOR. Addendum: 11/06/17 at 2044 by SIVAN ORTEGA RT Amended: Links added.
[2017-11-07] VITALS (36 sets, daily range): BP systolic 85–136; BP diastolic 39–87
[2017-11-07] MEDS: IPRATROPIUM NEB FS 0.5 MG/2.5 ML AMPUL.NEB NEB SCH ×4 (01:01→19:24)
[2017-11-07] MEDS: ALBUTEROL FS 2.5 MG/0.5 ML VIAL.NEB NEB SCH ×4 (01:01→19:24)
--- NOTE | 2017-11-07 02:00 | NUR ---
RN NOTES S/E BY DR. CRUZ
--- NOTE | 2017-11-07 03:15 | NUR ---
RN NOTES PT CONVERTED TO JUNCTIONAL TACHYCARDIA HR 109. WILL CONTINUE TO MONITOR. VSS REMAINED STABLE. NO ACUTE RESP DISTRESS, WILL MONITOR CLOSELY
[2017-11-07 04:49] LABS: BASOPHILS # (AUTO) 0.1 /CMM (0.0-0.2); BASOPHILS % (AUTO) 0.6 % (0.0-2.0); EOSINOPHILS % (AUTO) 1.4 % (0.0-6.0); HEMATOCRIT 34 % (39-51); LYMPHOCYTES # (AUTO) 1.9 /CMM (0.8-4.8); LYMPHOCYTES % (AUTO) 16.2 % (20.0-44.0); MEAN CORPUSCULAR HEMOGLOBIN 30 PG (26.0-33.0); MEAN CORPUSCULAR HGB CONC 32 g/dl (31.0-36.0); MEAN CORPUSCULAR VOLUME 93 fL (80-96); MONOCYTES % (AUTO) 8.6 % (2.0-12.0); NEUTROPHILS # (AUTO) 8.4 /CMM (1.8-8.9); NEUTROPHILS % (AUTO) 73.2 % (43.0-81.0); PLATELET COUNT (AUTO) 570 /CMM (150-450); RDW COEFFICIENT OF VARIATION 18.5 (11.5-15.0); RED BLOOD CELL COUNT(AUTO) 3.68 MIL/uL (4.5-6.0); WHITE BLOOD COUNT (AUTO) 11.5 K/uL (4.3-11.0)
[2017-11-07 04:54] LABS: CALCIUM, SERUM 8.8 mg/dL (8.5-10.1); CREATININE 0.3 mg/dL (0.6-1.3); POTASSIUM 4.3 mmol/L (3.5-5.1)
[2017-11-07] MEDS: DILTIAZEM HCL 30 MG TABLET PO SCH ×4 (06:00→18:10)
--- NOTE | 2017-11-07 06:22 | NUR ---
RN NOTES PT REMAINED IN THE SAME CONDITION TRACH AND VENT SETTING TOLERATED WELL. NO ACUTE RESPIRATORY DISTRESS. ALL DUE MEDICINE ADMINISTERED ORDERED. AFEBRILE. V/S CLOSELY MONITORED. JUNCTIONAL TACHYCARDIA CONVERTED TO SINUS TACH AT THIS TIME HR 107 ON TELE MONITOR. NO SIGNIFICANT CHANGES. GTF TOLERATED WELL, WITH ZERO RESIDUAL. KEPT PT CLEAN AND DRY. WILL CONTINUE TO MONITOR.
--- NOTE | 2017-11-07 07:12 | NUR ---
RN INITIAL NOTES: Rec'd pt on bed, not in any distress, A/O x1. On MV via trach, sating at 100%. On telemonitor, ST 108bpm. Has PEG patent & intact, on cont GTF Jevity 1.2 x 40cc/hr infusing well, no residual noted upon checking. Has 2 IV line access: LFA G20, SL & L FT G22, SL, both flushing well, no s/sx of infection/infiltration. Has FC draining to BSB. Provided comfort & safety measures. Bed kept low & in locked pos. Call light placed w/in reach. Will cont to monitor & attend pt needs.
[2017-11-07] MEDS: CLINDAMYCIN IV RTU IN D5W 50 ML IV SCH ×2 (08:06→16:05)
--- NOTE | 2017-11-07 08:27 | NUR ---
RT PATIENT REC'D TRACHED ON [facility] VENT WITH ORDERED SETTINGS. VENT ALARMS CHECKED + AUDIBLE. CUFF PRESSURE CHECKED AUTOMATION TENDER. B/S DIM. AIRWAY SUCTIONED WITH SMALL AMT OF PALE SEMITHICK SECRETIONS. PATIENT AWAKE, NO DISTRESS NOTED. AMBU BAG AT [facility]. Addendum: 11/07/17 at 0829 by JOSE SALDAÑA RT Amended: Links added.
[2017-11-07] MEDS: ENALAPRIL MALEATE (10 MG) 10 MG TABLET PO SCH ×2 (09:00→20:36)
[2017-11-07] MEDS: LEVETIRACETAM SOL (5 ML) 100 MG/ML UDC GT SCH ×2 (09:06→20:36)
[2017-11-07] MEDS: DOCUSATE SODIUM LIQ 100 MG/10 ML UDC GT SCH (09:06)
[2017-11-07] MEDS: CHOLECALCIFEROL 1,000 UNIT TABLET (VIT D3) GT SCH (09:06)
[2017-11-07] MEDS: FERROUS SULFATE UDC 300 MG/5 ML UDC GT SCH ×2 (09:06→16:05)
[2017-11-07] MEDS: LACTULOSE 10 G/15 ML UDC (PYXIS) GT SCH (09:07)
[2017-11-07] MEDS: MULTIVIT, IRON, MIN NO. 8, FA 1 TAB GT SCH (09:07)
[2017-11-07] MEDS: AMIODARONE HCL 200 MG TABLET PO SCH ×2 (09:07→20:36)
[2017-11-07] MEDS: FAMOTIDINE (20 MG) 20 MG TABLET GT SCH (09:07)
[2017-11-07] MEDS: CLOTRIMAZOLE 1% 15 GM TUBE TP SCH ×2 (09:08→16:06)
[2017-11-07] MEDS: PROSOURCE / PROSTAT (PYXIS) 30 ML UDC GT SCH (09:08)
--- NOTE | 2017-11-07 09:15 | NUR ---
Pt seen & examined by Dr. Cleveland.
[2017-11-07] MEDS: JEVITY 1.2 CAL 1,000 ML BOTTLE GT PRN (09:26)
--- NOTE | 2017-11-07 09:50 | NUR ---
Pt seen & examined by Dr. Smith w/ orders to do KUB d/t abdominal distention.
--- NOTE | 2017-11-07 14:00 | NUR ---
Pt seen & examined by Dr. Burnham, made him aware re: episode of Junctional Tachycardia last night.
[2017-11-07] MEDS: FUROSEMIDE 20 MG/2 ML VIAL IV SCH ×2 (14:37→16:05)
[2017-11-07] MEDS: RIVAROXABAN 10 MG TABLET GT SCH (16:05)
--- NOTE | 2017-11-07 18:56 | NUR ---
RN CLOSING NOTES: Pt tolerated MV settings via trach, no SOB. On telemonitor, ST/SR. PEG kept patent & intact, on cont GTF Jevity 1.2 x 40cc/hr infusing well. 3 IV line access kept patent & intact w/ no s/sx of infection/infiltration: KIMBER MIdline G18, LFA G20 & L ft G22, SL. FC draining to BSB. Kept well rested. Needs attended. Bed kept low & in locked pos. Call light placed w/in reach. Will endorse to PM RN for SHERIE. New skin issue noted on left ft 3rd toe, skin discoloration. Wound consult ordered.
[2017-11-08] VITALS (60 sets, daily range): BP systolic 77–129; BP diastolic 33–79
[2017-11-08] MEDS: CLINDAMYCIN IV RTU IN D5W 50 ML IV SCH ×2 (00:25→08:16)
[2017-11-08] MEDS: IPRATROPIUM NEB FS 0.5 MG/2.5 ML AMPUL.NEB NEB SCH ×3 (01:51→13:21)
[2017-11-08] MEDS: ALBUTEROL FS 2.5 MG/0.5 ML VIAL.NEB NEB SCH ×3 (01:51→13:21)
[2017-11-08 04:33] LABS: BASOPHILS % (AUTO) 0.5 % (0.0-2.0); EOSINOPHILS % (AUTO) 2.1 % (0.0-6.0); HEMATOCRIT 32 % (39-51); HEMOGLOBIN 10.5 g/dL (13.5-17.5); LYMPHOCYTES # (AUTO) 2.2 /CMM (0.8-4.8); LYMPHOCYTES % (AUTO) 20.9 % (20.0-44.0); MEAN CORPUSCULAR HEMOGLOBIN 30 PG (26.0-33.0); MEAN CORPUSCULAR HGB CONC 33 g/dl (31.0-36.0); MEAN CORPUSCULAR VOLUME 93 fL (80-96); NEUTROPHILS # (AUTO) 6.9 /CMM (1.8-8.9); NEUTROPHILS % (AUTO) 66.5 % (43.0-81.0); PLATELET COUNT (AUTO) 549 /CMM (150-450); RDW COEFFICIENT OF VARIATION 18.7 (11.5-15.0); RED BLOOD CELL COUNT(AUTO) 3.48 MIL/uL (4.5-6.0); WHITE BLOOD COUNT (AUTO) 10.4 K/uL (4.3-11.0)
[2017-11-08 04:48] LABS: CALCIUM, SERUM 9.1 mg/dL (8.5-10.1); CREATININE 0.3 mg/dL (0.6-1.3); POTASSIUM 5.2 mmol/L (3.5-5.1)
[2017-11-08] MEDS: DILTIAZEM HCL 30 MG TABLET PO SCH ×2 (06:00)
--- NOTE | 2017-11-08 07:47 | NUR ---
WOUND CARE CONSULT: PT SEEN FOR LEFT 3RD TOE DISCOLORATION. DURING ASSESSMENT OF TOE, SCALY SKIN FELL OFF, REVEALING NORMAL PINK SKIN. DISCUSSED WITH NURSING STAFF. SKIN TO BE KEPT CLEAN AND DRY. WILL SEE PRN.
--- NOTE | 2017-11-08 07:54 | NUR ---
INITIAL QUALITY CONTROL ASSESSOR NOTE RCVD PT AWAKE AND ALERT TO SELF, ABLE TO FOLLOW SIMPLE COMMANDS, SR ON TELE. TOLERATING ORDERED VENT SETTINGS WELL. G-TUBE PLACEMENT VERIFIED BY AUSCULTATION/ASPIRATION NO RESIDUAL OBTAINED. TOLERATING TUBE FEEDING RATE. JEFF TO GRAVITY DRAINING YELLOW URINE, LOW URINARY OUTPUT. IV SITES C/D/I/PATENT. NO S/O INFILTRATION/PHLEBITIS OBSERVED UPON FLUSHING LINES. WILL CONTINUE TO MONITOR PT FOR SAFETY AND COMFORT. CALL LIGHT WITHIN REACH. BED IN LOW AND LOCKED POSITION.
[2017-11-08] MEDS: LEVETIRACETAM SOL (5 ML) 100 MG/ML UDC GT SCH (08:20)
[2017-11-08] MEDS: CHOLECALCIFEROL 1,000 UNIT TABLET (VIT D3) GT SCH (08:20)
[2017-11-08] MEDS: FERROUS SULFATE UDC 300 MG/5 ML UDC GT SCH ×2 (08:20→16:37)
[2017-11-08] MEDS: DOCUSATE SODIUM LIQ 100 MG/10 ML UDC GT SCH (08:20)
[2017-11-08] MEDS: LACTULOSE 10 G/15 ML UDC (PYXIS) GT SCH (08:20)
[2017-11-08] MEDS: AMIODARONE HCL 200 MG TABLET PO SCH (08:21)
[2017-11-08] MEDS: FAMOTIDINE (20 MG) 20 MG TABLET GT SCH (08:21)
[2017-11-08] MEDS: CLOTRIMAZOLE 1% 15 GM TUBE TP SCH ×2 (08:21→16:39)
[2017-11-08] MEDS: MULTIVIT, IRON, MIN NO. 8, FA 1 TAB GT SCH (08:21)
[2017-11-08] MEDS: ENALAPRIL MALEATE (10 MG) 10 MG TABLET PO SCH (08:21)
[2017-11-08] MEDS: IV NS 0.9% 250 ML IV PRN (08:22)
[2017-11-08] MEDS: JEVITY 1.2 CAL 1,000 ML BOTTLE GT PRN (08:22)
[2017-11-08] MEDS: FUROSEMIDE 20 MG/2 ML VIAL IV SCH (08:23)
[2017-11-08] MEDS: PROSOURCE / PROSTAT (PYXIS) 30 ML UDC GT SCH (09:21)
[2017-11-08] MEDS ORDERED: IV NS 0.9% 500 ML IV ONE (10:00)
--- NOTE | 2017-11-08 10:11 | NUR ---
CORRUGATOR HELPER NOTE DR. CLIFFORD IN UNIT CAME TO ASSESS PT RECOMMENDED TO DISCONTINUE PEEP DUE TO SBP 80's WILL CONTINUE TO MONITOR. SHOSHANA, RT INFORMED SPOKE WTIH DR. CRUZ OVER THE PHONE INFORMED HIM ABOUT PT'S LOW SBP, ELEVATED k 5.2 THIS AM, AND DECREASED URINARY OUTPUT ABOUT 15 ML SINCE BEGINNING OF SHIFT. RCVD ORDERS FOR KAYEXALATE, TO GIVE PT A NS BOLUS OF 500ML, AND DECREASED DOSE OF VASOTEC, WILL CONTINUE TO MONITOR.
[2017-11-08] MEDS ORDERED: SODIUM POLYSTYRENE SULFONATE 15 G/60 ML BOTTLE GT ONE (10:30)
--- NOTE | 2017-11-08 12:29 | NUR ---
SUPERVISOR TELEPHONE INFORMATION NOTE SPOKE WITH DR. CRUZ REGARDING PT'S CONDITION. HE WAS INFORMED THAT POST-BOLUS PT'S SBP MID 90's-LOW 100's, NO BM POST-KAYEXALATE YET. HE RECOMMENDED TO MOVE FORWARD AND DISCHARGE PT. HE WAS INFORMED THAT PT'S ABDOMEN APPEARS SOFT BUT VERY DISTENDED. NO NEW ORDERS RCVD. DR. HERNANDEZ IN ROOM INFORMED THAT PT'S URINARY OUTPUT REMAINS LOW, UPDATED REGARDING PT'S DECREASED SBP, HE STATED THAT HE ADJUSTED BP MEDS DOSAGES. WILL CONTINUE TO MONITOR. NO NEW ORDERS RCVD.
[2017-11-08] MEDS ORDERED: CLINDAMYCIN HCL 150 MG CAPSULE PO SCH (13:00)
[2017-11-08] MEDS: RIVAROXABAN 10 MG TABLET GT SCH (16:37)
[2017-11-08] MEDS ORDERED: BUMETANIDE (1 MG) 1 MG TABLET PO SCH (17:00)
[2017-11-08] MEDS ORDERED: ENALAPRIL MALEATE (5 MG) 5 MG TABLET PO SCH (17:00)
[2017-11-08] MEDS ORDERED: DILTIAZEM HCL 30 MG TABLET PO SCH (18:00)
--- NOTE | 2017-11-08 18:15 | NUR ---
SOFTWARE CONSULTANT NOTE PT DISCHARGED TO [facility] ([phone]) IN STABLE CONDITION. VITAL SIGNS DOCUMENTED IN FLOW-SHEET. REMAINED SR ON TELE. G-TUBE FLUSHED AND CLAMPED PRIOR TO TRANSPORT. JEFF TO GRAVITY. IV SITES REMOVED ALL CATHETER TIPS INTACT. PRESSURE DRESSINGS IN PLACE. NO BLEEDING OBSERVED. REPORT CALLED TO FACILITY AND GIVEN TO CHRISTOPHER WHO STATED WILL ENDORSE PT TO [facility]. PT TAKEN VIA GURNEY BY AMBULANCE. PICTURES TAKEN AT DISCHARGE. EDUCATION MATERIALS AND MEDICATION RECONCILIATION GIVEN TO EMS STAFF.1800 MEDS HELD SINCE PT WAS DISCHARGED.
== END 2017-11-08 18:15 | DRG 720 ==
LOC: ER 08:37 → ICU 10:32
PROVIDERS: ADMIT Internal Medicine Rheumatology; ATTEND Internal Medicine Rheumatology
PROC: 5A1955Z Respiratory Ventilation, Greater than 96 Consecutive Hours (ICD-10-PCS; principal; 2017-11-02)
DX: A41.9 Sepsis, unspecified organism (principal); G93.1 Anoxic brain damage, not elsewhere classified; I47.2 Ventricular tachycardia; Z99.11 Dependence on respirator [ventilator] status; I50.33 Acute on chronic diastolic (congestive) heart failure; J96.10 Chronic respiratory failure, unspecified whether with hypoxia or hypercapnia; R53.2 Functional quadriplegia; Z93.0 Tracheostomy status; I47.1 Supraventricular tachycardia; D72.829 Elevated white blood cell count, unspecified; D47.3 Essential (hemorrhagic) thrombocythemia; I48.0 Paroxysmal atrial fibrillation; I95.9 Hypotension, unspecified; E87.5 Hyperkalemia; G40.909 Epilepsy, unspecified, not intractable, without status epilepticus; Z86.74 Personal history of sudden cardiac arrest; Z93.1 Gastrostomy status; I25.5 Ischemic cardiomyopathy; J98.11 Atelectasis; M41.9 Scoliosis, unspecified; I48.92 Unspecified atrial flutter; I11.0 Hypertensive heart disease with heart failure; Z79.01 Long term (current) use of anticoagulants
CPT/HCPCS: 31720; 36415; 36600; 71045-TC; 74018; 80048-TC; 80053-TC; 80076-TC; 81000-TC; 82306; 82803-TC; 83605-TC; 83735-TC; 83880; 84100-TC; 84439-TC; 84443-TC; 84484-TC; 85025-TC; 85652-TC; 85730-TC; 86850-TC; 87040-TC; 87081-TC; 87086-TC; 93307-TC; 94002-TC; 94003-TC; 94760-TC; 99082-TC; A4216; A4606; A6253; J0282; J0696; J1160; J1940; J1953; J1956; J3370; J3475; J3490; J7030; J7040; J7050; J7060; Z7610

== ENCOUNTER 2017-11-08 18:47 | Inpatient (IN) | payer MEDICAID ==
[~2017-11-08] VITALS: Ht 157.5 cm; Wt 89.8 kg
[~2017-11-08 18:47] MED LIST changes: +AMIN30LI4 GT; +ATOR10TA GT; +CHOL50004 PO; -CRAN3875 GT; -DEXT15DR6 EACHEYE; -ENOX40DI SUBCUT; -FAMO20TA8 PO; -METO25TA6 GT; +MULT-447 GT; +POTA20PA34 GT; +RANI150T43 GT; +RIVA10TA GT
[2017-11-08] MEDS ORDERED: IV NS 0.9% 500 ML BAG IV ONE ×2 (20:00→22:00)
[2017-11-08 20:21] LABS: BASOPHILS # (AUTO) 0.4 /CMM (0.0-0.2); BASOPHILS % (AUTO) 2.4 % (0.0-2.0); EOSINOPHILS % (AUTO) 1.2 % (0.0-6.0); HEMATOCRIT 32 % (39-51); HEMOGLOBIN 10.5 g/dL (13.5-17.5); LYMPHOCYTES # (AUTO) 1.7 /CMM (0.8-4.8); MEAN CORPUSCULAR HGB CONC 33 g/dl (31.0-36.0); MEAN CORPUSCULAR VOLUME 92 fL (80-96); MONOCYTES # (AUTO) 1.4 /CMM (0.1-1.30); MONOCYTES % (AUTO) 9.3 % (2.0-12.0); NEUTROPHILS # (AUTO) 11.4 /CMM (1.8-8.9); NEUTROPHILS % (AUTO) 76.1 % (43.0-81.0); PLATELET COUNT (AUTO) 619 /CMM (150-450); RED BLOOD CELL COUNT(AUTO) 3.52 MIL/uL (4.5-6.0); WHITE BLOOD COUNT (AUTO) 15.1 K/uL (4.3-11.0)
[2017-11-08 20:25] LABS: CALCIUM, SERUM 8.9 mg/dL (8.5-10.1); CARBON DIOXIDE 36 mmol/L (21-32); CHLORIDE 102 mmol/L (98-107); CREATININE 0.4 mg/dL (0.6-1.3); GLUCOSE 140 mg/dL (74-106); POTASSIUM 3.9 mmol/L (3.5-5.1); SODIUM SERUM 139 mmol/L (136-145); UREA NITROGEN, BLOOD 38 mg/dL (7-18)
[2017-11-08 20:27] LABS: INR 1.23 (0.85-1.15)
[2017-11-08 20:33] LABS: TROPONIN I < 0.017 ng/mL (0.00-0.056)
[2017-11-08 20:38] LABS: B-TYPE NATRIURETIC PEPTIDE 241 PG/ML (0-125)
[2017-11-08 22:24] VITALS: BP 121/70
[2017-11-08 22:30] VITALS: BP 123/71
[2017-11-08 23:00] VITALS: BP 123/71
[2017-11-08] MEDS ORDERED: ONDANSETRON HCL/PF 4 MG/2 ML VIAL IVP PRN (23:00)
[2017-11-08] MEDS ORDERED: MAGNESIUM HYDROXIDE 30 ML UDC GT PRN (23:00)
[2017-11-08] MEDS ORDERED: MORPHINE SULFATE INJ 2 MG/ML DISP.SYRIN IV PRN (23:00)
[2017-11-08] MEDS ORDERED: MISCELLANEOUS MED 1 EA EA GT PRN (23:00)
[2017-11-08] MEDS ORDERED: BISACODYL SUPP (10 MG) 10 MG/SUPP.RECT SUPP.RECT RC PRN (23:00)
[2017-11-08] MEDS ORDERED: Medication Not On Formulary EA (Ipratropium/Albuterol Sulfate (Duoneb 2.5-0.5 Mg/3 Ml So IH PRN (23:00)
[2017-11-08] MEDS ORDERED: IV NS 0.9% 1,000 ML IV SCH (23:00)
[2017-11-08] MEDS ORDERED: IV NS 0.9% 1,000 ML BAG IV ONE (23:00)
[2017-11-08] MEDS ORDERED: NA PHOS,M-B/NA PHOS,DI-BA 1 EA ENEMA RC PRN (23:00)
[2017-11-08] MEDS ORDERED: VANCOMYCIN 2 GM in IV NS 0.9% 500 ML IV ONE (23:30)
[2017-11-08 23:31] LABS: IRON, SERUM 43 ug/dl (50-175); TOTAL IRON BINDING CAPACITY 189 ug/dl (250-450)
[2017-11-08] MEDS ORDERED: PIPERACILLIN /TAZOBACTAM 3.375 G VIAL IV ONE (23:33)
[2017-11-08] MEDS ORDERED: VANCOMYCIN 1 GM VIAL ONE (23:35)
[2017-11-09] VITALS (100 sets, daily range): BP systolic 78–135; BP diastolic 34–86
[2017-11-09] MEDS ORDERED: NOREPINEPHRINE 8 MG in IV D5W 500 ML IV PRN ×2
[2017-11-09] MEDS: PIPERACILLIN /TAZOBACTAM 3.375 G in IV D5W 50 ML IV SCH ×2 (00:03→05:50)
[2017-11-09] MEDS ORDERED: Medication Not On Formulary EA (Ipratropium/Albuterol Sulfate (Duoneb 2.5-0.5 Mg/3 Ml So IH SCH (01:30)
[2017-11-09] MEDS ORDERED: NOREPINEPHRINE 4 MG/4 ML AMPUL IV ONE (02:00)
[2017-11-09] MEDS: NOREPINEPHRINE 8 MG in IV D5W 500 ML IV PRN ×2 (02:55→12:56)
[2017-11-09 05:19] LABS: BASOPHILS # (AUTO) 0.1 /CMM (0.0-0.2); BASOPHILS % (AUTO) 0.6 % (0.0-2.0); EOSINOPHILS % (AUTO) 1.4 % (0.0-6.0); HEMATOCRIT 32 % (39-51); HEMOGLOBIN 10.2 g/dL (13.5-17.5); LYMPHOCYTES # (AUTO) 2.9 /CMM (0.8-4.8); LYMPHOCYTES % (AUTO) 21.2 % (20.0-44.0); MEAN CORPUSCULAR HGB CONC 32 g/dl (31.0-36.0); MEAN CORPUSCULAR VOLUME 94 fL (80-96); MONOCYTES # (AUTO) 1.4 /CMM (0.1-1.30); MONOCYTES % (AUTO) 10.6 % (2.0-12.0); NEUTROPHILS % (AUTO) 66.2 % (43.0-81.0); PLATELET COUNT (AUTO) 579 /CMM (150-450); RDW COEFFICIENT OF VARIATION 18.9 (11.5-15.0); RED BLOOD CELL COUNT(AUTO) 3.43 MIL/uL (4.5-6.0); WHITE BLOOD COUNT (AUTO) 13.6 K/uL (4.3-11.0)
[2017-11-09 05:33] LABS: ALBUMIN 1.9 g/dL (3.4-5.0); BILIRUBIN,TOTAL 0.4 mg/dL (0.2-1.0); CALCIUM, SERUM 8.3 mg/dL (8.5-10.1); CREATININE 0.3 mg/dL (0.6-1.3); MAGNESIUM 2.5 mg/dL (1.8-2.4); PHOSPHORUS 4.3 mg/dL (2.5-4.9); POTASSIUM 3.8 mmol/L (3.5-5.1); TOTAL PROTEIN, SERUM 6.5 g/dL (6.4-8.2)
[2017-11-09] MEDS ORDERED: PIPERACILLIN /TAZOBACTAM 3.375 G VIAL IV ONE (05:47)
[2017-11-09] MEDS ORDERED: POLYVINYL ALCOHOL 15 ML BOTTLE EACHEYE PRN (07:30)
[2017-11-09] MEDS ORDERED: FEE PK DOSING 1 MIN EA MC ONE (07:40)
[2017-11-09] MEDS ORDERED: VANCOMYCIN 1.25 GM in IV D5W 500 ML IV SCH (08:00)
[2017-11-09] MEDS ORDERED: JEVITY 1.2 CAL 1,000 ML BOTTLE GT PRN (08:00)
[2017-11-09] MEDS ORDERED: ALBUTEROL FS 2.5 MG/3 ML VIAL.NEB NEB PRN (08:30)
[2017-11-09] MEDS ORDERED: IPRATROPIUM NEB FS 0.5 MG/2.5 ML AMPUL.NEB NEB PRN (08:30)
[2017-11-09] MEDS: ATORVASTATIN 10 MG TABLET GT SCH (08:51)
[2017-11-09] MEDS: LEVETIRACETAM SOL (5 ML) 100 MG/ML UDC GT SCH ×2 (08:51→17:10)
[2017-11-09] MEDS: PANTOPRAZOLE 40 MG VIAL IV SCH (08:51)
[2017-11-09] MEDS: FERROUS SULFATE UDC 300 MG/5 ML UDC GT SCH ×2 (08:51→17:10)
[2017-11-09] MEDS: DOCUSATE SODIUM LIQ 100 MG/10 ML UDC GT SCH (08:51)
[2017-11-09] MEDS: POTASSIUM CHLORIDE 20 MEQ POWDER PACKET GT SCH (08:51)
[2017-11-09] MEDS: LACTULOSE 10 G/15 ML UDC (PYXIS) GT SCH (08:51)
[2017-11-09] MEDS: CHOLECALCIFEROL 1,000 UNIT TABLET (VIT D3) GT SCH (08:51)
[2017-11-09] MEDS: MULTIVIT, IRON, MIN NO. 8, FA 1 TAB GT SCH (08:51)
[2017-11-09] MEDS: FAMOTIDINE (20 MG) 20 MG TABLET GT SCH ×2 (08:51→21:44)
[2017-11-09] MEDS: PROSOURCE / PROSTAT (PYXIS) 30 ML UDC GT SCH (08:56)
[2017-11-09] MEDS ORDERED: PROPANTHELINE BROMIDE 15 MG GT SCH (09:00)
[2017-11-09] MEDS ORDERED: RIVAROXABAN 10 MG TABLET GT SCH (09:00)
[2017-11-09] MEDS ORDERED: THEOPHYLLINE ANHYDROUS 80 MG/15 ML UDC GT SCH (09:00)
[2017-11-09] MEDS: ALBUMIN 25% 25 GM in PREMIX 1 EA IV SCH ×3 (11:28→22:28)
[2017-11-09] MEDS: AMIODARONE HCL 200 MG TABLET PO SCH ×2 (11:29→21:45)
[2017-11-09] MEDS: IV NS 0.9% 1,000 ML IV PRN (11:30)
[2017-11-09] MEDS: PIPERACILLIN /TAZOBACTAM 4.5 G in IV D5W 50 ML IV SCH ×2 (12:51→17:11)
[2017-11-09] MEDS: ALBUTEROL FS 2.5 MG/3 ML VIAL.NEB NEB SCH ×2 (14:13→19:58)
[2017-11-09] MEDS: IPRATROPIUM NEB FS 0.5 MG/2.5 ML AMPUL.NEB NEB SCH ×2 (14:13→19:57)
[2017-11-09] MEDS: Z GUARD REMEDY 2 OZ OINT TP SCH (15:31)
[2017-11-09] MEDS: RIVAROXABAN 10 MG TABLET GT SCH (17:11)
[2017-11-09 19:29] LABS: APPEARANCE,URINE CLEAR (CLEAR); BILIRUBIN,URINE NEGATIVE (NEGATIVE); BLOOD, URINE TRACE-INTA Ery/uL (NEGATIVE); COLOR,URINE YELLOW (YELLOW); KETONES,URINE NEGATIVE (NEGATIVE); LEUKOCYTE ESTERASE ,URINE NEGATIVE (NEGATIVE); NITRITE, URINE NEGATIVE (NEGATIVE); PH,URINE 6.5 (5.0-8.0); PROTEIN,URINE NEGATIVE (NEGATIVE); UGLUCOSE NEGATIVE (NEGATIVE); UROBILINOGEN,URINE 0.2 EU/dL (0.2)
[2017-11-09 20:25] LABS: BACTERIA,URINE None seen /HPF (None Seen); RBC,URINE 0-2 /HPF (0-2); SQUAMOUS EPITHELIAL CELL,UR None Seen /HPF (None Seen); WBC,URINE NONE SEEN /HPF (0-3)
[2017-11-10] VITALS (92 sets, daily range): BP systolic 81–125; BP diastolic 40–84
[2017-11-10] MEDS: PIPERACILLIN /TAZOBACTAM 4.5 G in IV D5W 50 ML IV SCH ×5 (00:46→23:43)
[2017-11-10] MEDS: ALBUTEROL FS 2.5 MG/3 ML VIAL.NEB NEB SCH ×4 (01:38→20:00)
[2017-11-10] MEDS: IPRATROPIUM NEB FS 0.5 MG/2.5 ML AMPUL.NEB NEB SCH ×4 (01:38→20:00)
[2017-11-10] MEDS: ALBUMIN 25% 25 GM in PREMIX 1 EA IV SCH (04:18)
[2017-11-10 04:42] LABS: BASOPHILS % (AUTO) 0.4 % (0.0-2.0); EOSINOPHILS % (AUTO) 1.3 % (0.0-6.0); HEMATOCRIT 31 % (39-51); HEMOGLOBIN 9.8 g/dL (13.5-17.5); LYMPHOCYTES # (AUTO) 2.1 /CMM (0.8-4.8); LYMPHOCYTES % (AUTO) 19.3 % (20.0-44.0); MEAN CORPUSCULAR HGB CONC 31 g/dl (31.0-36.0); MEAN CORPUSCULAR VOLUME 94 fL (80-96); MONOCYTES # (AUTO) 1.3 /CMM (0.1-1.30); MONOCYTES % (AUTO) 12.3 % (2.0-12.0); NEUTROPHILS # (AUTO) 7.2 /CMM (1.8-8.9); NEUTROPHILS % (AUTO) 66.7 % (43.0-81.0); PLATELET COUNT (AUTO) 504 /CMM (150-450); RDW COEFFICIENT OF VARIATION 19.5 (11.5-15.0); RED BLOOD CELL COUNT(AUTO) 3.32 MIL/uL (4.5-6.0); WHITE BLOOD COUNT (AUTO) 10.8 K/uL (4.3-11.0)
[2017-11-10 04:52] LABS: CALCIUM, SERUM 8.6 mg/dL (8.5-10.1); CREATININE 0.4 mg/dL (0.6-1.3); POTASSIUM 3.8 mmol/L (3.5-5.1)
[2017-11-10] MEDS: NOREPINEPHRINE 8 MG in IV D5W 500 ML IV PRN (07:32)
[2017-11-10] MEDS ORDERED: VANCOMYCIN 1.25 GM in IV D5W 500 ML IV SCH (08:00)
[2017-11-10] MEDS: PANTOPRAZOLE 40 MG VIAL IV SCH (08:47)
[2017-11-10] MEDS: LACTULOSE 10 G/15 ML UDC (PYXIS) GT SCH (08:47)
[2017-11-10] MEDS: FERROUS SULFATE UDC 300 MG/5 ML UDC GT SCH ×2 (08:47→16:36)
[2017-11-10] MEDS: HYDROCORTISONE SOD SUCCINATE 100 MG/2 ML VIAL IV SCH ×3 (08:48→16:37)
[2017-11-10] MEDS: DOCUSATE SODIUM LIQ 100 MG/10 ML UDC GT SCH (08:48)
[2017-11-10] MEDS: LEVETIRACETAM SOL (5 ML) 100 MG/ML UDC GT SCH ×2 (08:48→16:37)
[2017-11-10] MEDS: FAMOTIDINE (20 MG) 20 MG TABLET GT SCH ×2 (08:48→21:35)
[2017-11-10] MEDS: AMIODARONE HCL 200 MG TABLET PO SCH ×2 (08:48→21:35)
[2017-11-10] MEDS: MULTIVIT, IRON, MIN NO. 8, FA 1 TAB GT SCH (08:48)
[2017-11-10] MEDS: POTASSIUM CHLORIDE 20 MEQ POWDER PACKET GT SCH (08:48)
[2017-11-10] MEDS: CHOLECALCIFEROL 1,000 UNIT TABLET (VIT D3) GT SCH (08:48)
[2017-11-10] MEDS: ATORVASTATIN 10 MG TABLET GT SCH (08:48)
[2017-11-10] MEDS: Z GUARD REMEDY 2 OZ OINT TP SCH (08:49)
[2017-11-10] MEDS: PROSOURCE / PROSTAT (PYXIS) 30 ML UDC GT SCH (08:50)
[2017-11-10] MEDS: IV NS 0.9% 1,000 ML IV PRN (08:52)
[2017-11-10] MEDS: FLUDROCORTISONE 0.1 MG TABLET GT SCH ×3 (12:00→23:43)
[2017-11-10] MEDS: RIVAROXABAN 10 MG TABLET GT SCH (16:37)
[2017-11-11] VITALS (73 sets, daily range): BP systolic 75–137; BP diastolic 33–80
[2017-11-11] MEDS: IPRATROPIUM NEB FS 0.5 MG/2.5 ML AMPUL.NEB NEB SCH ×4 (01:01→19:56)
[2017-11-11] MEDS: ALBUTEROL FS 2.5 MG/3 ML VIAL.NEB NEB SCH ×4 (01:01→19:56)
[2017-11-11 04:32] LABS: BASOPHILS # (AUTO) 0.1 /CMM (0.0-0.2); BASOPHILS % (AUTO) 1.1 % (0.0-2.0); EOSINOPHILS % (AUTO) 0.2 % (0.0-6.0); HEMATOCRIT 27 % (39-51); HEMOGLOBIN 8.6 g/dL (13.5-17.5); LYMPHOCYTES # (AUTO) 1.5 /CMM (0.8-4.8); LYMPHOCYTES % (AUTO) 17.4 % (20.0-44.0); MEAN CORPUSCULAR HGB CONC 32 g/dl (31.0-36.0); MEAN CORPUSCULAR VOLUME 94 fL (80-96); MONOCYTES # (AUTO) 0.9 /CMM (0.1-1.30); MONOCYTES % (AUTO) 10.6 % (2.0-12.0); NEUTROPHILS # (AUTO) 6.1 /CMM (1.8-8.9); NEUTROPHILS % (AUTO) 70.7 % (43.0-81.0); PLATELET COUNT (AUTO) 405 /CMM (150-450); RED BLOOD CELL COUNT(AUTO) 2.88 MIL/uL (4.5-6.0); WHITE BLOOD COUNT (AUTO) 8.6 K/uL (4.3-11.0)
[2017-11-11 04:46] LABS: CALCIUM, SERUM 8.4 mg/dL (8.5-10.1); CREATININE 0.3 mg/dL (0.6-1.3)
[2017-11-11 04:48] LABS: POTASSIUM 2.8 mmol/L (3.5-5.1)
[2017-11-11] MEDS: PIPERACILLIN /TAZOBACTAM 4.5 G in IV D5W 50 ML IV SCH ×4 (05:53→23:31)
[2017-11-11] MEDS: IV NS 0.9% 1,000 ML IV PRN (05:54)
[2017-11-11] MEDS: FLUDROCORTISONE 0.1 MG TABLET GT SCH ×4 (05:55→23:31)
[2017-11-11] MEDS: MULTIVIT, IRON, MIN NO. 8, FA 1 TAB GT SCH (09:26)
[2017-11-11] MEDS: LEVETIRACETAM SOL (5 ML) 100 MG/ML UDC GT SCH ×2 (09:26→17:10)
[2017-11-11] MEDS: CHOLECALCIFEROL 1,000 UNIT TABLET (VIT D3) GT SCH (09:26)
[2017-11-11] MEDS: FERROUS SULFATE UDC 300 MG/5 ML UDC GT SCH ×2 (09:27→17:10)
[2017-11-11] MEDS: LACTULOSE 10 G/15 ML UDC (PYXIS) GT SCH (09:27)
[2017-11-11] MEDS: AMIODARONE HCL 200 MG TABLET PO SCH ×2 (09:27→20:06)
[2017-11-11] MEDS: DOCUSATE SODIUM LIQ 100 MG/10 ML UDC GT SCH (09:27)
[2017-11-11] MEDS: FAMOTIDINE (20 MG) 20 MG TABLET GT SCH ×2 (09:27→20:06)
[2017-11-11] MEDS: PANTOPRAZOLE 40 MG/PACK PACK GT SCH (09:28)
[2017-11-11] MEDS: HYDROCORTISONE SOD SUCCINATE 100 MG/2 ML VIAL IV SCH ×3 (09:29→17:12)
[2017-11-11] MEDS: Z GUARD REMEDY 2 OZ OINT TP SCH (09:31)
[2017-11-11] MEDS: PROSOURCE / PROSTAT (PYXIS) 30 ML UDC GT SCH (09:36)
[2017-11-11] MEDS: POTASSIUM CHLORIDE 20 MEQ POWDER PACKET GT SCH ×2 (09:55→17:11)
[2017-11-11] MEDS: NOREPINEPHRINE 8 MG in IV D5W 500 ML IV PRN ×2 (12:27→18:50)
[2017-11-11] MEDS: JEVITY 1.2 CAL 1,000 ML BOTTLE GT PRN (14:24)
[2017-11-11] MEDS: RIVAROXABAN 10 MG TABLET GT SCH (17:15)
[2017-11-11 18:01] LABS: ABG BASE EXCESS 0.7 mmol/L; ABG OXYGEN SATURATION 95.7 % (92.0-98.5); ABG PCO2 49.5 mmHg (35.0-45.0); ABG PH 7.351 (7.350-7.450); ABG PO2 86.8 mmHg (75.0-100.0); AaDO2 141.5 mmHg; COHb 0.3 % (0.5-1.5); MetHb 0.5 % (0.0-1.5); O2Hb 94.9 % (94.0-97.0); PEEP,BG 0 cm H2O; SITE, ABG Right Radial; VT, ABG 450 mL
[2017-11-12] VITALS (103 sets, daily range): BP systolic 94–150; BP diastolic 48–84
[2017-11-12] MEDS: ALBUTEROL FS 2.5 MG/3 ML VIAL.NEB NEB SCH ×4 (01:15→19:49)
[2017-11-12] MEDS: IPRATROPIUM NEB FS 0.5 MG/2.5 ML AMPUL.NEB NEB SCH ×4 (01:16→19:49)
[2017-11-12 04:27] LABS: CALCIUM, SERUM 8.3 mg/dL (8.5-10.1); CREATININE 0.4 mg/dL (0.6-1.3); POTASSIUM 4.1 mmol/L (3.5-5.1)
[2017-11-12 04:28] LABS: BASOPHILS % (AUTO) 0.3 % (0.0-2.0); EOSINOPHILS % (AUTO) 0.8 % (0.0-6.0); HEMATOCRIT 32 % (39-51); HEMOGLOBIN 10.4 g/dL (13.5-17.5); LYMPHOCYTES # (AUTO) 1.1 /CMM (0.8-4.8); LYMPHOCYTES % (AUTO) 8.1 % (20.0-44.0); MEAN CORPUSCULAR HGB CONC 33 g/dl (31.0-36.0); MEAN CORPUSCULAR VOLUME 92 fL (80-96); MONOCYTES # (AUTO) 1.1 /CMM (0.1-1.30); MONOCYTES % (AUTO) 8.2 % (2.0-12.0); NEUTROPHILS # (AUTO) 11.4 /CMM (1.8-8.9); NEUTROPHILS % (AUTO) 82.6 % (43.0-81.0); PLATELET COUNT (AUTO) 560 /CMM (150-450); RDW COEFFICIENT OF VARIATION 18.1 (11.5-15.0); RED BLOOD CELL COUNT(AUTO) 3.43 MIL/uL (4.5-6.0); WHITE BLOOD COUNT (AUTO) 13.7 K/uL (4.3-11.0)
[2017-11-12] MEDS ORDERED: FLUDROCORTISONE 0.1 MG TABLET ONE (06:02)
[2017-11-12] MEDS: FLUDROCORTISONE 0.1 MG TABLET GT SCH ×4 (06:08→23:16)
[2017-11-12] MEDS: PIPERACILLIN /TAZOBACTAM 4.5 G in IV D5W 50 ML IV SCH ×4 (06:08→23:16)
[2017-11-12] MEDS: NOREPINEPHRINE 8 MG in IV D5W 500 ML IV PRN (11:14)
[2017-11-12] MEDS: PROSOURCE / PROSTAT (PYXIS) 30 ML UDC GT SCH (11:23)
[2017-11-12] MEDS: LACTULOSE 10 G/15 ML UDC (PYXIS) GT SCH (11:24)
[2017-11-12] MEDS: FERROUS SULFATE UDC 300 MG/5 ML UDC GT SCH ×2 (11:24→17:41)
[2017-11-12] MEDS: DOCUSATE SODIUM LIQ 100 MG/10 ML UDC GT SCH (11:24)
[2017-11-12] MEDS: MULTIVIT, IRON, MIN NO. 8, FA 1 TAB GT SCH (11:25)
[2017-11-12] MEDS: LEVETIRACETAM SOL (5 ML) 100 MG/ML UDC GT SCH ×2 (11:25→17:42)
[2017-11-12] MEDS: FAMOTIDINE (20 MG) 20 MG TABLET GT SCH ×2 (11:25→20:50)
[2017-11-12] MEDS: CHOLECALCIFEROL 1,000 UNIT TABLET (VIT D3) GT SCH (11:26)
[2017-11-12] MEDS: POTASSIUM CHLORIDE 20 MEQ POWDER PACKET GT SCH (11:27)
[2017-11-12] MEDS: PANTOPRAZOLE 40 MG/PACK PACK GT SCH (11:27)
[2017-11-12] MEDS: HYDROCORTISONE SOD SUCCINATE 100 MG/2 ML VIAL IV SCH ×3 (11:33→18:46)
[2017-11-12] MEDS: FUROSEMIDE 20 MG/2 ML VIAL IV SCH ×2 (12:50→17:48)
[2017-11-12] MEDS: Z GUARD REMEDY 2 OZ OINT TP SCH (12:53)
[2017-11-12] MEDS: JEVITY 1.2 CAL 1,000 ML BOTTLE GT PRN (17:35)
[2017-11-12] MEDS: RIVAROXABAN 10 MG TABLET GT SCH (17:44)
[2017-11-12] MEDS: AMIODARONE HCL 200 MG TABLET PO SCH (20:51)
[2017-11-13] VITALS (92 sets, daily range): BP systolic 90–132; BP diastolic 43–72
[2017-11-13] MEDS: IPRATROPIUM NEB FS 0.5 MG/2.5 ML AMPUL.NEB NEB SCH ×4 (01:00→19:32)
[2017-11-13] MEDS: ALBUTEROL FS 2.5 MG/3 ML VIAL.NEB NEB SCH ×4 (01:01→19:32)
[2017-11-13 04:48] LABS: BASOPHILS # (AUTO) 0.2 /CMM (0.0-0.2); BASOPHILS % (AUTO) 2.5 % (0.0-2.0); EOSINOPHILS % (AUTO) 0.1 % (0.0-6.0); HEMATOCRIT 33 % (39-51); HEMOGLOBIN 10.7 g/dL (13.5-17.5); LYMPHOCYTES # (AUTO) 1.3 /CMM (0.8-4.8); LYMPHOCYTES % (AUTO) 13.7 % (20.0-44.0); MEAN CORPUSCULAR HGB CONC 33 g/dl (31.0-36.0); MEAN CORPUSCULAR VOLUME 91 fL (80-96); MONOCYTES % (AUTO) 11.2 % (2.0-12.0); NEUTROPHILS # (AUTO) 6.8 /CMM (1.8-8.9); NEUTROPHILS % (AUTO) 72.5 % (43.0-81.0); PLATELET COUNT (AUTO) 534 /CMM (150-450); RDW COEFFICIENT OF VARIATION 18.4 (11.5-15.0); RED BLOOD CELL COUNT(AUTO) 3.57 MIL/uL (4.5-6.0); WHITE BLOOD COUNT (AUTO) 9.3 K/uL (4.3-11.0)
[2017-11-13] MEDS ORDERED: FLUDROCORTISONE 0.1 MG TABLET ONE (05:02)
[2017-11-13] MEDS: FLUDROCORTISONE 0.1 MG TABLET GT SCH ×3 (05:08→17:01)
[2017-11-13] MEDS: PIPERACILLIN /TAZOBACTAM 4.5 G in IV D5W 50 ML IV SCH ×3 (05:08→17:00)
[2017-11-13] MEDS: NOREPINEPHRINE 8 MG in IV D5W 500 ML IV PRN ×2 (05:13→20:52)
[2017-11-13 05:27] LABS: CALCIUM, SERUM 8.2 mg/dL (8.5-10.1); CREATININE 0.3 mg/dL (0.6-1.3)
[2017-11-13 05:35] LABS: POTASSIUM 2.7 mmol/L (3.5-5.1)
[2017-11-13] MEDS: POTASSIUM CHLORIDE 20 MEQ POWDER PACKET GT SCH (08:09)
[2017-11-13] MEDS: FUROSEMIDE 20 MG/2 ML VIAL IV SCH ×2 (08:09→16:40)
[2017-11-13] MEDS: FERROUS SULFATE UDC 300 MG/5 ML UDC GT SCH ×2 (08:09→16:32)
[2017-11-13] MEDS: LEVETIRACETAM SOL (5 ML) 100 MG/ML UDC GT SCH ×2 (08:09→16:32)
[2017-11-13] MEDS: PANTOPRAZOLE 40 MG/PACK PACK GT SCH (08:09)
[2017-11-13] MEDS: DOCUSATE SODIUM LIQ 100 MG/10 ML UDC GT SCH (08:09)
[2017-11-13] MEDS: LACTULOSE 10 G/15 ML UDC (PYXIS) GT SCH (08:09)
[2017-11-13] MEDS: CHOLECALCIFEROL 1,000 UNIT TABLET (VIT D3) GT SCH (08:10)
[2017-11-13] MEDS: MULTIVIT, IRON, MIN NO. 8, FA 1 TAB GT SCH (08:10)
[2017-11-13] MEDS: FAMOTIDINE (20 MG) 20 MG TABLET GT SCH ×2 (08:10→20:02)
[2017-11-13] MEDS: HYDROCORTISONE SOD SUCCINATE 100 MG/2 ML VIAL IV SCH ×3 (08:10→16:32)
[2017-11-13] MEDS: AMIODARONE HCL 200 MG TABLET PO SCH ×2 (08:10→20:02)
[2017-11-13] MEDS: Z GUARD REMEDY 2 OZ OINT TP SCH (08:11)
[2017-11-13] MEDS: PROSOURCE / PROSTAT (PYXIS) 30 ML UDC GT SCH (08:11)
[2017-11-13] MEDS ORDERED: POTASSIUM CHLORIDE 10 MEQ/50 ML PREMIXED IVPB FOR PERIPHERAL LINE IV STA (08:25)
[2017-11-13] MEDS ORDERED: Magnesium 1GM/D5W 100ML PREMIX PIGGYBACK IV ONE (08:30)
[2017-11-13] MEDS: POTASSIUM CL. PREMIX PERIPHER. 50 ML IV SCH ×5 (08:58→13:48)
[2017-11-13] MEDS: Magnesium 1GM/D5W 100ML PREMIX 100 ML IV SCH ×2 (08:58→10:02)
[2017-11-13] MEDS: RIVAROXABAN 10 MG TABLET GT SCH (16:35)
[2017-11-13] MEDS: JEVITY 1.2 CAL 1,000 ML BOTTLE GT PRN (20:50)
[2017-11-14] VITALS (60 sets, daily range): BP systolic 89–135; BP diastolic 40–79
[2017-11-14] MEDS: FUROSEMIDE 20 MG/2 ML VIAL IV SCH ×3 (00:20→17:50)
[2017-11-14] MEDS: PIPERACILLIN /TAZOBACTAM 4.5 G in IV D5W 50 ML IV SCH ×5 (00:20→23:21)
[2017-11-14] MEDS: IPRATROPIUM NEB FS 0.5 MG/2.5 ML AMPUL.NEB NEB SCH ×4 (01:25→19:32)
[2017-11-14] MEDS: ALBUTEROL FS 2.5 MG/3 ML VIAL.NEB NEB SCH ×4 (01:25→19:32)
[2017-11-14 04:53] LABS: CALCIUM, SERUM 8.4 mg/dL (8.5-10.1); CREATININE 0.2 mg/dL (0.6-1.3)
[2017-11-14 05:13] LABS: POTASSIUM 2.7 mmol/L (3.5-5.1)
[2017-11-14 06:23] LABS: HEMOGLOBIN 9.7 g/dL (13.5-17.5); WHITE BLOOD COUNT (AUTO) 9.4 K/uL (4.3-11.0)
[2017-11-14 06:24] LABS: BASOPHILS % (AUTO) 0.3 % (0.0-2.0); EOSINOPHILS % (AUTO) 0.2 % (0.0-6.0); HEMATOCRIT 29 % (39-51); MEAN CORPUSCULAR HGB CONC 33 g/dl (31.0-36.0); MEAN CORPUSCULAR VOLUME 92 fL (80-96); MONOCYTES % (AUTO) 12.7 % (2.0-12.0); NEUTROPHILS % (AUTO) 69.8 % (43.0-81.0); PLATELET COUNT (AUTO) 442 /CMM (150-450); RDW COEFFICIENT OF VARIATION 18.8 (11.5-15.0)
[2017-11-14] MEDS: LACTULOSE 10 G/15 ML UDC (PYXIS) GT SCH (09:00)
[2017-11-14] MEDS: DOCUSATE SODIUM LIQ 100 MG/10 ML UDC GT SCH (09:00)
[2017-11-14] MEDS: LEVETIRACETAM SOL (5 ML) 100 MG/ML UDC GT SCH ×2 (09:50→17:46)
[2017-11-14] MEDS: FERROUS SULFATE UDC 300 MG/5 ML UDC GT SCH ×2 (09:50→17:46)
[2017-11-14] MEDS: FAMOTIDINE (20 MG) 20 MG TABLET GT SCH ×2 (09:51→20:24)
[2017-11-14] MEDS: POTASSIUM CHLORIDE 20 MEQ POWDER PACKET GT SCH ×3 (09:51→20:26)
[2017-11-14] MEDS: MULTIVIT, IRON, MIN NO. 8, FA 1 TAB GT SCH (09:51)
[2017-11-14] MEDS: CHOLECALCIFEROL 1,000 UNIT TABLET (VIT D3) GT SCH (09:52)
[2017-11-14] MEDS: AMIODARONE HCL 200 MG TABLET PO SCH ×2 (09:53→20:25)
[2017-11-14] MEDS: HYDROCORTISONE SOD SUCCINATE 100 MG/2 ML VIAL IV SCH ×3 (09:54→17:46)
[2017-11-14] MEDS: PROSOURCE / PROSTAT (PYXIS) 30 ML UDC GT SCH (09:57)
[2017-11-14] MEDS: Z GUARD REMEDY 2 OZ OINT TP SCH (09:58)
[2017-11-14] MEDS: ACETAMINOPHEN 650 MG/20.3 ML UDC NG PRN (10:22)
[2017-11-14] MEDS: PANTOPRAZOLE 40 MG/PACK PACK GT SCH (13:53)
[2017-11-14] MEDS: RIVAROXABAN 10 MG TABLET GT SCH (17:49)
[2017-11-14] MEDS: JEVITY 1.2 CAL 1,000 ML BOTTLE GT PRN (20:28)
[2017-11-14] MEDS: IV NS 0.9% 250 ML IV PRN (20:53)
[2017-11-15] VITALS (38 sets, daily range): BP systolic 84–122; BP diastolic 46–75
[2017-11-15] MEDS: IPRATROPIUM NEB FS 0.5 MG/2.5 ML AMPUL.NEB NEB SCH ×4 (01:03→19:26)
[2017-11-15] MEDS: ALBUTEROL FS 2.5 MG/3 ML VIAL.NEB NEB SCH ×4 (01:03→19:26)
[2017-11-15] MEDS: FUROSEMIDE 20 MG/2 ML VIAL IV SCH ×2 (01:25→17:16)
[2017-11-15] MEDS ORDERED: SPIRONOLACTONE 25 MG TABLET PO SCH (02:00)
[2017-11-15] MEDS ORDERED: POTASSIUM CHLORIDE 20 MEQ TAB.PRT.SR PO SCH (02:00)
[2017-11-15 05:14] LABS: BASOPHILS % (AUTO) 0.4 % (0.0-2.0); EOSINOPHILS % (AUTO) 0.1 % (0.0-6.0); HEMATOCRIT 29 % (39-51); HEMOGLOBIN 9.2 g/dL (13.5-17.5); LYMPHOCYTES % (AUTO) 16.5 % (20.0-44.0); MEAN CORPUSCULAR HGB CONC 31 g/dl (31.0-36.0); MEAN CORPUSCULAR VOLUME 95 fL (80-96); MONOCYTES # (AUTO) 1.3 /CMM (0.1-1.30); MONOCYTES % (AUTO) 10.4 % (2.0-12.0); NEUTROPHILS # (AUTO) 8.8 /CMM (1.8-8.9); NEUTROPHILS % (AUTO) 72.6 % (43.0-81.0); PLATELET COUNT (AUTO) 443 /CMM (150-450); RDW COEFFICIENT OF VARIATION 19.5 (11.5-15.0); RED BLOOD CELL COUNT(AUTO) 3.08 MIL/uL (4.5-6.0); WHITE BLOOD COUNT (AUTO) 12.1 K/uL (4.3-11.0)
[2017-11-15 05:21] LABS: CALCIUM, SERUM 8.3 mg/dL (8.5-10.1); CREATININE 0.3 mg/dL (0.6-1.3); POTASSIUM 4.3 mmol/L (3.5-5.1)
[2017-11-15] MEDS: PIPERACILLIN /TAZOBACTAM 4.5 G in IV D5W 50 ML IV SCH ×4 (05:58→23:45)
[2017-11-15] MEDS: DOCUSATE SODIUM LIQ 100 MG/10 ML UDC GT SCH (09:00)
[2017-11-15] MEDS: LACTULOSE 10 G/15 ML UDC (PYXIS) GT SCH (09:00)
[2017-11-15] MEDS: AMIODARONE HCL 200 MG TABLET PO SCH ×2 (09:00→21:13)
[2017-11-15] MEDS: FERROUS SULFATE UDC 300 MG/5 ML UDC GT SCH ×2 (09:10→17:10)
[2017-11-15] MEDS: CHOLECALCIFEROL 1,000 UNIT TABLET (VIT D3) GT SCH (09:11)
[2017-11-15] MEDS: SPIRONOLACTONE 25 MG TABLET GT SCH (09:11)
[2017-11-15] MEDS: LEVETIRACETAM SOL (5 ML) 100 MG/ML UDC GT SCH ×2 (09:11→17:10)
[2017-11-15] MEDS: MULTIVIT, IRON, MIN NO. 8, FA 1 TAB GT SCH (09:13)
[2017-11-15] MEDS: FAMOTIDINE (20 MG) 20 MG TABLET GT SCH ×2 (09:13→21:13)
[2017-11-15] MEDS: POTASSIUM CHLORIDE 20 MEQ POWDER PACKET GT SCH (09:13)
[2017-11-15] MEDS: Z GUARD REMEDY 2 OZ OINT TP SCH (09:15)
[2017-11-15] MEDS: PROSOURCE / PROSTAT (PYXIS) 30 ML UDC GT SCH (09:15)
[2017-11-15] MEDS: RIVAROXABAN 10 MG TABLET GT SCH (17:09)
[2017-11-15] MEDS: JEVITY 1.2 CAL 1,000 ML BOTTLE GT PRN (23:02)
[2017-11-16] VITALS (31 sets, daily range): BP systolic 56–123; BP diastolic 44–75
[2017-11-16] MEDS: FUROSEMIDE 20 MG/2 ML VIAL IV SCH ×3 (01:05→17:54)
[2017-11-16] MEDS: ALBUTEROL FS 2.5 MG/3 ML VIAL.NEB NEB SCH ×4 (01:08→19:42)
[2017-11-16] MEDS: IPRATROPIUM NEB FS 0.5 MG/2.5 ML AMPUL.NEB NEB SCH ×4 (01:08→19:42)
[2017-11-16] MEDS: PIPERACILLIN /TAZOBACTAM 4.5 G in IV D5W 50 ML IV SCH ×4 (05:45→23:57)
[2017-11-16 08:34] LABS: BASOPHILS # (AUTO) 0.1 /CMM (0.0-0.2); BASOPHILS % (AUTO) 0.4 % (0.0-2.0); EOSINOPHILS % (AUTO) 1.9 % (0.0-6.0); HEMATOCRIT 29 % (39-51); HEMOGLOBIN 8.9 g/dL (13.5-17.5); LYMPHOCYTES # (AUTO) 3.1 /CMM (0.8-4.8); LYMPHOCYTES % (AUTO) 19.9 % (20.0-44.0); MEAN CORPUSCULAR HGB CONC 31 g/dl (31.0-36.0); MEAN CORPUSCULAR VOLUME 94 fL (80-96); MONOCYTES # (AUTO) 1.1 /CMM (0.1-1.30); MONOCYTES % (AUTO) 6.9 % (2.0-12.0); NEUTROPHILS # (AUTO) 10.9 /CMM (1.8-8.9); NEUTROPHILS % (AUTO) 70.9 % (43.0-81.0); PLATELET COUNT (AUTO) 414 /CMM (150-450); RDW COEFFICIENT OF VARIATION 19.4 (11.5-15.0); RED BLOOD CELL COUNT(AUTO) 3.08 MIL/uL (4.5-6.0); WHITE BLOOD COUNT (AUTO) 15.4 K/uL (4.3-11.0)
[2017-11-16] MEDS: FERROUS SULFATE UDC 300 MG/5 ML UDC GT SCH ×2 (08:51→17:53)
[2017-11-16] MEDS: LEVETIRACETAM SOL (5 ML) 100 MG/ML UDC GT SCH ×2 (08:51→17:54)
[2017-11-16] MEDS: AMIODARONE HCL 200 MG TABLET PO SCH ×2 (08:52→20:00)
[2017-11-16] MEDS: MULTIVIT, IRON, MIN NO. 8, FA 1 TAB GT SCH (08:52)
[2017-11-16] MEDS: Z GUARD REMEDY 2 OZ OINT TP SCH (08:52)
[2017-11-16] MEDS: DOCUSATE SODIUM LIQ 100 MG/10 ML UDC GT SCH (08:53)
[2017-11-16] MEDS: LACTULOSE 10 G/15 ML UDC (PYXIS) GT SCH (08:53)
[2017-11-16] MEDS: SPIRONOLACTONE 25 MG TABLET GT SCH (08:53)
[2017-11-16] MEDS: POTASSIUM CHLORIDE 20 MEQ POWDER PACKET GT SCH (08:53)
[2017-11-16] MEDS: CHOLECALCIFEROL 1,000 UNIT TABLET (VIT D3) GT SCH (08:53)
[2017-11-16] MEDS: PROSOURCE / PROSTAT (PYXIS) 30 ML UDC GT SCH (08:54)
[2017-11-16] MEDS: FAMOTIDINE (20 MG) 20 MG TABLET GT SCH ×2 (08:54→20:01)
[2017-11-16 09:01] LABS: CALCIUM, SERUM 8.7 mg/dL (8.5-10.1); CREATININE 0.4 mg/dL (0.6-1.3); POTASSIUM 4.1 mmol/L (3.5-5.1)
[2017-11-16 13:25] LABS: APPEARANCE,URINE SL CLOUDY (CLEAR); BILIRUBIN,URINE NEGATIVE (NEGATIVE); BLOOD, URINE NEGATIVE Ery/uL (NEGATIVE); COLOR,URINE YELLOW (YELLOW); KETONES,URINE NEGATIVE (NEGATIVE); LEUKOCYTE ESTERASE ,URINE NEGATIVE (NEGATIVE); NITRITE, URINE NEGATIVE (NEGATIVE); PH,URINE 7.5 (5.0-8.0); PROTEIN,URINE NEGATIVE (NEGATIVE); UGLUCOSE NEGATIVE (NEGATIVE); UROBILINOGEN,URINE 0.2 EU/dL (0.2)
[2017-11-16] MEDS ORDERED: DIATR MEGLU/DIATRIZOATE SODIUM 30 ML BOTTLE (GASTROGRAPHIN) ONE (15:51)
[2017-11-16] MEDS ORDERED: COD LIVER OIL/ZINC OXIDE 120 GM TUBE TP SCH (16:00)
[2017-11-16] MEDS ORDERED: NEOMY SULF/BACITRAC ZN/POLY 15 GM TUBE TP PRN (16:00)
[2017-11-16] MEDS: RIVAROXABAN 10 MG TABLET GT SCH (17:56)
[2017-11-16] MEDS: IV NS 0.9% 250 ML IV PRN (19:14)
[2017-11-17] VITALS: BP_SYST 101; BP_SYST 99; BP_DIAS 50
[2017-11-17] MEDS: FUROSEMIDE 20 MG/2 ML VIAL IV SCH (00:04)
[2017-11-17] MEDS: ALBUTEROL FS 2.5 MG/3 ML VIAL.NEB NEB SCH ×4 (01:21→19:26)
[2017-11-17] MEDS: IPRATROPIUM NEB FS 0.5 MG/2.5 ML AMPUL.NEB NEB SCH ×4 (01:21→19:26)
[2017-11-17 04:00] VITALS: BP_SYST 90; BP_SYST 95; BP_DIAS 49; BP_DIAS 57
[2017-11-17] MEDS: PIPERACILLIN /TAZOBACTAM 4.5 G in IV D5W 50 ML IV SCH ×3 (05:39→17:04)
[2017-11-17 07:28] LABS: BASOPHILS # (AUTO) 0.1 /CMM (0.0-0.2); BASOPHILS % (AUTO) 0.4 % (0.0-2.0); EOSINOPHILS % (AUTO) 1.7 % (0.0-6.0); HEMATOCRIT 32 % (39-51); HEMOGLOBIN 9.9 g/dL (13.5-17.5); LYMPHOCYTES % (AUTO) 15.1 % (20.0-44.0); MEAN CORPUSCULAR HGB CONC 31 g/dl (31.0-36.0); MEAN CORPUSCULAR VOLUME 95 fL (80-96); MONOCYTES # (AUTO) 0.8 /CMM (0.1-1.30); MONOCYTES % (AUTO) 5.9 % (2.0-12.0); NEUTROPHILS # (AUTO) 10.4 /CMM (1.8-8.9); NEUTROPHILS % (AUTO) 76.9 % (43.0-81.0); PLATELET COUNT (AUTO) 410 /CMM (150-450); RDW COEFFICIENT OF VARIATION 19.8 (11.5-15.0); RED BLOOD CELL COUNT(AUTO) 3.38 MIL/uL (4.5-6.0); WHITE BLOOD COUNT (AUTO) 13.6 K/uL (4.3-11.0)
[2017-11-17 07:42] LABS: CALCIUM, SERUM 9.5 mg/dL (8.5-10.1); CREATININE 0.4 mg/dL (0.6-1.3); POTASSIUM 4.4 mmol/L (3.5-5.1)
[2017-11-17 08:00] VITALS: BP 101/46
[2017-11-17] MEDS: FERROUS SULFATE UDC 300 MG/5 ML UDC GT SCH ×2 (08:32→16:00)
[2017-11-17] MEDS: DOCUSATE SODIUM LIQ 100 MG/10 ML UDC GT SCH (08:32)
[2017-11-17] MEDS: LACTULOSE 10 G/15 ML UDC (PYXIS) GT SCH (08:32)
[2017-11-17] MEDS: CHOLECALCIFEROL 1,000 UNIT TABLET (VIT D3) GT SCH (08:32)
[2017-11-17] MEDS: LEVETIRACETAM SOL (5 ML) 100 MG/ML UDC GT SCH ×2 (08:32→16:00)
[2017-11-17] MEDS: AMIODARONE HCL 200 MG TABLET PO SCH ×2 (08:33→21:36)
[2017-11-17] MEDS: MULTIVIT, IRON, MIN NO. 8, FA 1 TAB GT SCH (08:33)
[2017-11-17] MEDS: FAMOTIDINE (20 MG) 20 MG TABLET GT SCH ×2 (08:33→21:36)
[2017-11-17] MEDS: PROSOURCE / PROSTAT (PYXIS) 30 ML UDC GT SCH (08:34)
[2017-11-17] MEDS: Z GUARD REMEDY 2 OZ OINT TP SCH (08:35)
[2017-11-17 12:00] VITALS: BP 102/54
[2017-11-17] MEDS: JEVITY 1.2 CAL 1,000 ML BOTTLE GT PRN (13:04)
[2017-11-17 16:00] VITALS: BP 96/57
[2017-11-17] MEDS: RIVAROXABAN 10 MG TABLET GT SCH (16:01)
[2017-11-17 20:00] VITALS: BP 90/51
[2017-11-18] VITALS: BP_SYST 98; BP_DIAS 51; BP_DIAS 58
[2017-11-18] MEDS: PIPERACILLIN /TAZOBACTAM 4.5 G in IV D5W 50 ML IV SCH ×3 (00:02→13:41)
[2017-11-18] MEDS: ALBUTEROL FS 2.5 MG/3 ML VIAL.NEB NEB SCH ×4 (01:30→19:43)
[2017-11-18] MEDS: IPRATROPIUM NEB FS 0.5 MG/2.5 ML AMPUL.NEB NEB SCH ×4 (01:30→19:43)
[2017-11-18 04:00] VITALS: BP_SYST 92; BP_DIAS 57; BP_DIAS 59
[2017-11-18 08:00] VITALS: BP 94/51
[2017-11-18] MEDS: FERROUS SULFATE UDC 300 MG/5 ML UDC GT SCH ×2 (09:56→18:25)
[2017-11-18] MEDS: LACTULOSE 10 G/15 ML UDC (PYXIS) GT SCH (09:56)
[2017-11-18] MEDS: LEVETIRACETAM SOL (5 ML) 100 MG/ML UDC GT SCH ×2 (09:56→18:24)
[2017-11-18] MEDS: DOCUSATE SODIUM LIQ 100 MG/10 ML UDC GT SCH (09:56)
[2017-11-18] MEDS: FAMOTIDINE (20 MG) 20 MG TABLET GT SCH ×2 (09:57→21:46)
[2017-11-18] MEDS: AMIODARONE HCL 200 MG TABLET PO SCH ×2 (09:57→21:00)
[2017-11-18] MEDS: CHOLECALCIFEROL 1,000 UNIT TABLET (VIT D3) GT SCH (09:57)
[2017-11-18] MEDS: MULTIVIT, IRON, MIN NO. 8, FA 1 TAB GT SCH (09:58)
[2017-11-18] MEDS: Z GUARD REMEDY 2 OZ OINT TP SCH (09:58)
[2017-11-18] MEDS: PROSOURCE / PROSTAT (PYXIS) 30 ML UDC GT SCH (10:01)
[2017-11-18 12:39] VITALS: BP 96/54
[2017-11-18 16:00] VITALS: BP 89/48
[2017-11-18] MEDS: RIVAROXABAN 10 MG TABLET GT SCH (18:23)
[2017-11-18] MEDS: JEVITY 1.2 CAL 1,000 ML BOTTLE GT PRN (18:42)
[2017-11-18 20:00] VITALS: BP 96/56
[2017-11-18] MEDS: ACETAMINOPHEN 650 MG/20.3 ML UDC NG PRN (21:46)
[2017-11-19] VITALS (8 sets, daily range): BP systolic 80–90; BP diastolic 40–51
[2017-11-19] MEDS ORDERED: VANCOMYCIN 0.75 GM in IV D5W 250 ML IV ONE (01:30)
[2017-11-19] MEDS: ALBUTEROL FS 2.5 MG/3 ML VIAL.NEB NEB SCH ×4 (01:40→19:24)
[2017-11-19] MEDS: IPRATROPIUM NEB FS 0.5 MG/2.5 ML AMPUL.NEB NEB SCH ×4 (01:40→19:24)
[2017-11-19] MEDS: IV D5W 1,000 ML IV PRN (02:09)
[2017-11-19] MEDS: HYDROCODONE/APAP 5/325MG 1 EACH TABLET PO PRN ×2 (05:36→21:03)
[2017-11-19 06:37] LABS: BASOPHILS # (AUTO) 0.1 /CMM (0.0-0.2); BASOPHILS % (AUTO) 0.6 % (0.0-2.0); EOSINOPHILS % (AUTO) 3.1 % (0.0-6.0); HEMATOCRIT 29 % (39-51); HEMOGLOBIN 8.9 g/dL (13.5-17.5); LYMPHOCYTES # (AUTO) 2.5 /CMM (0.8-4.8); LYMPHOCYTES % (AUTO) 25.3 % (20.0-44.0); MEAN CORPUSCULAR HGB CONC 31 g/dl (31.0-36.0); MEAN CORPUSCULAR VOLUME 95 fL (80-96); MONOCYTES # (AUTO) 0.8 /CMM (0.1-1.30); MONOCYTES % (AUTO) 7.7 % (2.0-12.0); NEUTROPHILS # (AUTO) 6.3 /CMM (1.8-8.9); NEUTROPHILS % (AUTO) 63.3 % (43.0-81.0); PLATELET COUNT (AUTO) 362 /CMM (150-450); RDW COEFFICIENT OF VARIATION 19.5 (11.5-15.0); RED BLOOD CELL COUNT(AUTO) 3.03 MIL/uL (4.5-6.0); WHITE BLOOD COUNT (AUTO) 9.9 K/uL (4.3-11.0)
[2017-11-19 06:56] LABS: CALCIUM, SERUM 9.2 mg/dL (8.5-10.1); CREATININE 0.3 mg/dL (0.6-1.3); POTASSIUM 3.6 mmol/L (3.5-5.1)
[2017-11-19] MEDS: VANCOMYCIN 1 GM VIAL ONE (07:35)
[2017-11-19] MEDS: AMIODARONE HCL 200 MG TABLET PO SCH ×2 (09:00→21:00)
[2017-11-19] MEDS: PROSOURCE / PROSTAT (PYXIS) 30 ML UDC GT SCH (09:00)
[2017-11-19] MEDS: FAMOTIDINE (20 MG) 20 MG TABLET GT SCH ×2 (09:36→21:02)
[2017-11-19] MEDS: DOCUSATE SODIUM LIQ 100 MG/10 ML UDC GT SCH (09:36)
[2017-11-19] MEDS: MULTIVIT, IRON, MIN NO. 8, FA 1 TAB GT SCH (09:36)
[2017-11-19] MEDS: LACTULOSE 10 G/15 ML UDC (PYXIS) GT SCH (09:36)
[2017-11-19] MEDS: LEVETIRACETAM SOL (5 ML) 100 MG/ML UDC GT SCH ×2 (09:36→18:52)
[2017-11-19] MEDS: FERROUS SULFATE UDC 300 MG/5 ML UDC GT SCH ×2 (09:36→18:52)
[2017-11-19] MEDS: CHOLECALCIFEROL 1,000 UNIT TABLET (VIT D3) GT SCH (09:36)
[2017-11-19] MEDS: Z GUARD REMEDY 2 OZ OINT TP SCH (09:47)
[2017-11-19] MEDS ORDERED: FEE PK DOSING 1 MIN EA MC ONE (14:01)
[2017-11-19] MEDS: VANCOMYCIN 0.75 GM in IV D5W 250 ML IV SCH (15:14)
[2017-11-19] MEDS: RIVAROXABAN 10 MG TABLET GT SCH (18:52)
[2017-11-20] VITALS (8 sets, daily range): BP systolic 93–115; BP diastolic 54–61
[2017-11-20] MEDS: IPRATROPIUM NEB FS 0.5 MG/2.5 ML AMPUL.NEB NEB SCH ×4 (01:34→19:54)
[2017-11-20] MEDS: ALBUTEROL FS 2.5 MG/3 ML VIAL.NEB NEB SCH ×4 (01:34→19:54)
[2017-11-20] MEDS: IV D5W 1,000 ML IV PRN ×2 (02:25→18:21)
[2017-11-20] MEDS: VANCOMYCIN 0.75 GM in IV D5W 250 ML IV SCH (02:26)
[2017-11-20 06:35] LABS: CALCIUM, SERUM 8.8 mg/dL (8.5-10.1); CREATININE 0.3 mg/dL (0.6-1.3); POTASSIUM 3.5 mmol/L (3.5-5.1)
[2017-11-20 07:02] LABS: BASOPHILS # (AUTO) 0.1 /CMM (0.0-0.2); BASOPHILS % (AUTO) 1.3 % (0.0-2.0); EOSINOPHILS % (AUTO) 3.5 % (0.0-6.0); HEMATOCRIT 27 % (39-51); HEMOGLOBIN 8.8 g/dL (13.5-17.5); LYMPHOCYTES # (AUTO) 2.7 /CMM (0.8-4.8); LYMPHOCYTES % (AUTO) 30.8 % (20.0-44.0); MEAN CORPUSCULAR HGB CONC 33 g/dl (31.0-36.0); MEAN CORPUSCULAR VOLUME 91 fL (80-96); MONOCYTES # (AUTO) 0.8 /CMM (0.1-1.30); MONOCYTES % (AUTO) 9.4 % (2.0-12.0); NEUTROPHILS # (AUTO) 4.9 /CMM (1.8-8.9); PLATELET COUNT (AUTO) 325 /CMM (150-450); RDW COEFFICIENT OF VARIATION 17.5 (11.5-15.0); RED BLOOD CELL COUNT(AUTO) 2.96 MIL/uL (4.5-6.0); WHITE BLOOD COUNT (AUTO) 8.8 K/uL (4.3-11.0)
[2017-11-20] MEDS: LACTULOSE 10 G/15 ML UDC (PYXIS) GT SCH (09:00)
[2017-11-20] MEDS: AMIODARONE HCL 200 MG TABLET PO SCH (09:00)
[2017-11-20] MEDS: DOCUSATE SODIUM LIQ 100 MG/10 ML UDC GT SCH (09:00)
[2017-11-20] MEDS ORDERED: DIATR MEGLU/DIATRIZOATE SODIUM 30 ML BOTTLE (GASTROGRAPHIN) ONE (09:20)
[2017-11-20] MEDS: FERROUS SULFATE UDC 300 MG/5 ML UDC GT SCH ×2 (10:19→17:42)
[2017-11-20] MEDS: LEVETIRACETAM SOL (5 ML) 100 MG/ML UDC GT SCH ×2 (10:19→17:41)
[2017-11-20] MEDS: MULTIVIT, IRON, MIN NO. 8, FA 1 TAB GT SCH (10:19)
[2017-11-20] MEDS: CHOLECALCIFEROL 1,000 UNIT TABLET (VIT D3) GT SCH (10:21)
[2017-11-20] MEDS: PROSOURCE / PROSTAT (PYXIS) 30 ML UDC GT SCH (10:21)
[2017-11-20] MEDS: MIDODRINE HCL (5MG) 5 MG TABLET PO SCH ×2 (10:21→17:49)
[2017-11-20] MEDS: FAMOTIDINE (20 MG) 20 MG TABLET GT SCH ×2 (10:21→21:31)
[2017-11-20] MEDS: Z GUARD REMEDY 2 OZ OINT TP SCH (10:24)
[2017-11-20] MEDS: ACETYLCYSTEINE 10% SOLN 400 MG/4 ML VIAL NEB SCH (15:30)
[2017-11-20] MEDS: HYDROCODONE/APAP 5/325MG 1 EACH TABLET PO PRN (17:43)
[2017-11-20] MEDS: RIVAROXABAN 10 MG TABLET GT SCH (17:47)
[2017-11-21] VITALS: BP 118/68
[2017-11-21] MEDS: ALBUTEROL FS 2.5 MG/3 ML VIAL.NEB NEB SCH ×4 (00:48→19:37)
[2017-11-21] MEDS: ACETYLCYSTEINE 10% SOLN 400 MG/4 ML VIAL NEB SCH ×3 (00:49→13:38)
[2017-11-21] MEDS: IPRATROPIUM NEB FS 0.5 MG/2.5 ML AMPUL.NEB NEB SCH ×4 (00:49→19:37)
[2017-11-21 04:00] VITALS: BP 105/57
[2017-11-21 06:42] LABS: BASOPHILS # (AUTO) 0.1 /CMM (0.0-0.2); BASOPHILS % (AUTO) 0.5 % (0.0-2.0); EOSINOPHILS % (AUTO) 3.4 % (0.0-6.0); HEMATOCRIT 31 % (39-51); HEMOGLOBIN 9.7 g/dL (13.5-17.5); LYMPHOCYTES # (AUTO) 2.1 /CMM (0.8-4.8); LYMPHOCYTES % (AUTO) 21.4 % (20.0-44.0); MEAN CORPUSCULAR HGB CONC 32 g/dl (31.0-36.0); MEAN CORPUSCULAR VOLUME 92 fL (80-96); MONOCYTES % (AUTO) 9.7 % (2.0-12.0); NEUTROPHILS # (AUTO) 6.5 /CMM (1.8-8.9); PLATELET COUNT (AUTO) 364 /CMM (150-450); RDW COEFFICIENT OF VARIATION 18.9 (11.5-15.0); RED BLOOD CELL COUNT(AUTO) 3.32 MIL/uL (4.5-6.0)
[2017-11-21 07:08] LABS: CALCIUM, SERUM 9.2 mg/dL (8.5-10.1); CREATININE 0.3 mg/dL (0.6-1.3)
[2017-11-21 07:23] LABS: POTASSIUM 2.8 mmol/L (3.5-5.1)
[2017-11-21 08:00] VITALS: BP 116/76
[2017-11-21] MEDS: DOCUSATE SODIUM LIQ 100 MG/10 ML UDC GT SCH (08:14)
[2017-11-21] MEDS: FERROUS SULFATE UDC 300 MG/5 ML UDC GT SCH ×2 (08:14→17:05)
[2017-11-21] MEDS: FAMOTIDINE (20 MG) 20 MG TABLET GT SCH ×2 (08:14→21:01)
[2017-11-21] MEDS: LACTULOSE 10 G/15 ML UDC (PYXIS) GT SCH (08:14)
[2017-11-21] MEDS: MIDODRINE HCL (5MG) 5 MG TABLET PO SCH ×2 (08:15→17:07)
[2017-11-21] MEDS: CHOLECALCIFEROL 1,000 UNIT TABLET (VIT D3) GT SCH (08:15)
[2017-11-21] MEDS: LEVETIRACETAM SOL (5 ML) 100 MG/ML UDC GT SCH ×2 (08:15→17:05)
[2017-11-21] MEDS: MULTIVIT, IRON, MIN NO. 8, FA 1 TAB GT SCH (08:15)
[2017-11-21] MEDS: AMIODARONE HCL 200 MG TABLET PO SCH (08:16)
[2017-11-21] MEDS: PROSOURCE / PROSTAT (PYXIS) 30 ML UDC GT SCH (08:16)
[2017-11-21] MEDS: Z GUARD REMEDY 2 OZ OINT TP SCH (08:17)
[2017-11-21] MEDS: IV D5W 1,000 ML IV PRN ×2 (08:30→21:02)
[2017-11-21] MEDS: VANCOMYCIN 0.75 GM in IV D5W 250 ML IV SCH (08:31)
[2017-11-21] MEDS: POTASSIUM CHLORIDE 20 MEQ POWDER PACKET GT SCH ×3 (10:08→12:51)
[2017-11-21 12:00] VITALS: BP 119/69
[2017-11-21 16:00] VITALS: BP 96/50
[2017-11-21] MEDS: RIVAROXABAN 10 MG TABLET GT SCH (17:06)
[2017-11-21 20:00] VITALS: BP 97/58
[2017-11-22] VITALS: BP 100/53
[2017-11-22] MEDS: ACETYLCYSTEINE 10% SOLN 400 MG/4 ML VIAL NEB SCH ×3 (00:28→15:36)
[2017-11-22] MEDS: IPRATROPIUM NEB FS 0.5 MG/2.5 ML AMPUL.NEB NEB SCH ×4 (00:30→20:03)
[2017-11-22] MEDS: ALBUTEROL FS 2.5 MG/3 ML VIAL.NEB NEB SCH ×4 (00:30→20:03)
[2017-11-22 04:00] VITALS: BP 112/56
[2017-11-22 07:01] LABS: CALCIUM, SERUM 9.1 mg/dL (8.5-10.1); CREATININE 0.2 mg/dL (0.6-1.3); POTASSIUM 3.9 mmol/L (3.5-5.1)
[2017-11-22 08:00] VITALS: BP 119/68
[2017-11-22 08:05] LABS: BASOPHILS % (AUTO) 0.6 % (0.0-2.0); EOSINOPHILS % (AUTO) 2.8 % (0.0-6.0); HEMATOCRIT 29 % (39-51); HEMOGLOBIN 9.5 g/dL (13.5-17.5); LYMPHOCYTES % (AUTO) 31.1 % (20.0-44.0); MEAN CORPUSCULAR HGB CONC 32 g/dl (31.0-36.0); MEAN CORPUSCULAR VOLUME 91 fL (80-96); MONOCYTES % (AUTO) 11.4 % (2.0-12.0); NEUTROPHILS % (AUTO) 54.1 % (43.0-81.0); PLATELET COUNT (AUTO) 337 /CMM (150-450); RDW COEFFICIENT OF VARIATION 18.5 (11.5-15.0); RED BLOOD CELL COUNT(AUTO) 3.21 MIL/uL (4.5-6.0); WHITE BLOOD COUNT (AUTO) 9.5 K/uL (4.3-11.0)
[2017-11-22 08:06] LABS: BASOPHILS # (AUTO) 0.1 /CMM (0.0-0.2); LYMPHOCYTES # (AUTO) 2.9 /CMM (0.8-4.8); MONOCYTES # (AUTO) 1.1 /CMM (0.1-1.30); NEUTROPHILS # (AUTO) 5.1 /CMM (1.8-8.9)
[2017-11-22] MEDS: LACTULOSE 10 G/15 ML UDC (PYXIS) GT SCH (09:11)
[2017-11-22] MEDS: CHOLECALCIFEROL 1,000 UNIT TABLET (VIT D3) GT SCH (09:11)
[2017-11-22] MEDS: LEVETIRACETAM SOL (5 ML) 100 MG/ML UDC GT SCH ×2 (09:11→17:00)
[2017-11-22] MEDS: DOCUSATE SODIUM LIQ 100 MG/10 ML UDC GT SCH (09:11)
[2017-11-22] MEDS: FERROUS SULFATE UDC 300 MG/5 ML UDC GT SCH ×2 (09:11→17:00)
[2017-11-22] MEDS: FAMOTIDINE (20 MG) 20 MG TABLET GT SCH ×2 (09:12→21:00)
[2017-11-22] MEDS: MULTIVIT, IRON, MIN NO. 8, FA 1 TAB GT SCH (09:12)
[2017-11-22] MEDS: AMIODARONE HCL 200 MG TABLET PO SCH (09:13)
[2017-11-22] MEDS: HYDROCODONE/APAP 5/325MG 1 EACH TABLET PO PRN (09:13)
[2017-11-22] MEDS: PROSOURCE / PROSTAT (PYXIS) 30 ML UDC GT SCH (09:14)
[2017-11-22] MEDS: Z GUARD REMEDY 2 OZ OINT TP SCH (09:14)
[2017-11-22] MEDS: MIDODRINE HCL (5MG) 5 MG TABLET PO SCH ×2 (09:21→17:00)
[2017-11-22] MEDS: VANCOMYCIN 0.75 GM in IV D5W 250 ML IV SCH (09:21)
[2017-11-22 12:00] VITALS: BP 98/48
[2017-11-22] MEDS ORDERED: TPN/PPN PER PHARMACY IV PRN (12:30)
[2017-11-22] MEDS ORDERED: LEVOFLOXACIN 750 MG /D5W 150ML 750 MG in PREMIX 1 EA IV SCH (13:00)
[2017-11-22] MEDS: COD LIVER OIL/ZINC OXIDE 120 GM TUBE TP SCH ×2 (14:00→18:13)
[2017-11-22] MEDS: IV D5W 1,000 ML IV PRN (14:41)
[2017-11-22 16:00] VITALS: BP 109/64
[2017-11-22] MEDS: RIVAROXABAN 10 MG TABLET GT SCH (17:00)
[2017-11-22 18:00] LABS: MAGNESIUM 2.2 mg/dL (1.8-2.4); PHOSPHORUS 2.1 mg/dL (2.5-4.9)
[2017-11-22] MEDS ORDERED: DEXTROSE 50%-WATER 50 ML DISP.SYRIN IV PRN (18:00)
[2017-11-22] MEDS: PIPERACILLIN /TAZOBACTAM 3.375 G in IV D5W 50 ML IV SCH ×2 (18:09→23:41)
[2017-11-22] MEDS: PANTOPRAZOLE 40 MG VIAL IV SCH (18:11)
[2017-11-22] MEDS: BLOOD SUGAR DIAGNOSTIC 1 EACH STRIP IN SCH (18:12)
[2017-11-22] MEDS ORDERED: TPN BAG # 1 IV PRN ×5 (19:00)
[2017-11-22 20:00] VITALS: BP 104/61
[2017-11-23] VITALS: BP 129/75
[2017-11-23] MEDS: ACETYLCYSTEINE 10% SOLN 400 MG/4 ML VIAL NEB SCH ×2 (00:23→09:26)
[2017-11-23] MEDS: INSULIN REGULAR, HUMAN 100 UNIT/ML 3 ML VIAL SQ PRN ×4 (00:31→17:59)
[2017-11-23] MEDS: BLOOD SUGAR DIAGNOSTIC 1 EACH STRIP IN SCH ×5 (00:32→23:30)
[2017-11-23] MEDS: ALBUTEROL FS 2.5 MG/3 ML VIAL.NEB NEB SCH ×4 (01:24→20:06)
[2017-11-23] MEDS: IPRATROPIUM NEB FS 0.5 MG/2.5 ML AMPUL.NEB NEB SCH ×4 (01:24→20:06)
[2017-11-23 04:00] VITALS: BP 128/69
[2017-11-23] MEDS: PIPERACILLIN /TAZOBACTAM 3.375 G in IV D5W 50 ML IV SCH ×4 (06:09→23:30)
[2017-11-23 08:00] VITALS: BP 105/54
[2017-11-23 08:39] LABS: CALCIUM, SERUM 8.9 mg/dL (8.5-10.1); CREATININE 0.4 mg/dL (0.6-1.3); MAGNESIUM 2.1 mg/dL (1.8-2.4); PHOSPHORUS 1.9 mg/dL (2.5-4.9)
[2017-11-23 08:41] LABS: POTASSIUM 2.8 mmol/L (3.5-5.1)
[2017-11-23] MEDS: LEVETIRACETAM SOL (5 ML) 100 MG/ML UDC GT SCH ×2 (09:00→17:00)
[2017-11-23] MEDS: FAMOTIDINE (20 MG) 20 MG TABLET GT SCH ×2 (09:00→21:00)
[2017-11-23] MEDS: MIDODRINE HCL (5MG) 5 MG TABLET PO SCH ×2 (09:00→17:00)
[2017-11-23] MEDS: FERROUS SULFATE UDC 300 MG/5 ML UDC GT SCH ×2 (09:00→17:00)
[2017-11-23] MEDS: CHOLECALCIFEROL 1,000 UNIT TABLET (VIT D3) GT SCH (09:00)
[2017-11-23] MEDS: LACTULOSE 10 G/15 ML UDC (PYXIS) GT SCH (09:00)
[2017-11-23] MEDS: DOCUSATE SODIUM LIQ 100 MG/10 ML UDC GT SCH (09:00)
[2017-11-23] MEDS: AMIODARONE HCL 200 MG TABLET PO SCH (09:00)
[2017-11-23] MEDS: PANTOPRAZOLE 40 MG VIAL IV SCH ×2 (09:20→16:28)
[2017-11-23] MEDS: VANCOMYCIN 0.75 GM in IV D5W 250 ML IV SCH (09:20)
[2017-11-23] MEDS: Z GUARD REMEDY 2 OZ OINT TP SCH (09:26)
[2017-11-23] MEDS: COD LIVER OIL/ZINC OXIDE 120 GM TUBE TP SCH ×2 (09:26→16:31)
[2017-11-23 12:00] VITALS: BP 103/60
[2017-11-23] MEDS ORDERED: POTASSIUM PHOSPHATE MM 7.5 MMOL in IV D5W 100 ML IV SCH (12:00)
[2017-11-23] MEDS: POTASSIUM CL. PREMIX PERIPHER. 50 ML IV SCH ×5 (12:22→20:15)
[2017-11-23 16:00] VITALS: BP 89/40
[2017-11-23] MEDS: RIVAROXABAN 10 MG TABLET GT SCH (17:00)
[2017-11-23] MEDS ORDERED: diphenhydrAMINE HCL 50 MG/ML VIAL IV PRN (19:00)
[2017-11-23] MEDS ORDERED: TPN BAG #2 IV PRN ×6 (19:00)
[2017-11-23 20:00] VITALS: BP 97/52
[2017-11-23] MEDS: LEVETIRACETAM (500MG) 500 MG in IV NS 0.9% 100 ML IV SCH (23:00)
[2017-11-24] VITALS: BP 114/59
[2017-11-24] MEDS: ACETYLCYSTEINE 10% SOLN 400 MG/4 ML VIAL NEB SCH ×4 (00:52→23:54)
[2017-11-24] MEDS: IPRATROPIUM NEB FS 0.5 MG/2.5 ML AMPUL.NEB NEB SCH ×4 (00:52→19:06)
[2017-11-24] MEDS: ALBUTEROL FS 2.5 MG/3 ML VIAL.NEB NEB SCH ×4 (00:52→19:06)
[2017-11-24 04:00] VITALS: BP_SYST 129; BP_SYST 99; BP_DIAS 58; BP_DIAS 78
[2017-11-24] MEDS: PIPERACILLIN /TAZOBACTAM 3.375 G in IV D5W 50 ML IV SCH ×3 (05:34→17:50)
[2017-11-24] MEDS: BLOOD SUGAR DIAGNOSTIC 1 EACH STRIP IN SCH ×3 (05:42→18:08)
[2017-11-24 07:52] LABS: CALCIUM, SERUM 8.9 mg/dL (8.5-10.1); CREATININE 0.3 mg/dL (0.6-1.3); MAGNESIUM 1.9 mg/dL (1.8-2.4); PHOSPHORUS 1.7 mg/dL (2.5-4.9); POTASSIUM 4.2 mmol/L (3.5-5.1)
[2017-11-24 07:54] LABS: BASOPHILS % (AUTO) 0.4 % (0.0-2.0); HEMATOCRIT 35 % (39-51); HEMOGLOBIN 10.9 g/dL (13.5-17.5); LYMPHOCYTES # (AUTO) 1.7 /CMM (0.8-4.8); LYMPHOCYTES % (AUTO) 15.6 % (20.0-44.0); MEAN CORPUSCULAR HGB CONC 31 g/dl (31.0-36.0); MEAN CORPUSCULAR VOLUME 93 fL (80-96); MONOCYTES # (AUTO) 0.8 /CMM (0.1-1.30); MONOCYTES % (AUTO) 6.7 % (2.0-12.0); NEUTROPHILS # (AUTO) 8.2 /CMM (1.8-8.9); NEUTROPHILS % (AUTO) 73.3 % (43.0-81.0); PLATELET COUNT (AUTO) 249 /CMM (150-450); RDW COEFFICIENT OF VARIATION 19.4 (11.5-15.0); WHITE BLOOD COUNT (AUTO) 11.2 K/uL (4.3-11.0)
[2017-11-24 08:00] VITALS: BP 102/51
[2017-11-24] MEDS: FAMOTIDINE (20 MG) 20 MG TABLET GT SCH ×2 (09:00→21:00)
[2017-11-24] MEDS: FERROUS SULFATE UDC 300 MG/5 ML UDC GT SCH ×2 (09:00→17:00)
[2017-11-24] MEDS: MIDODRINE HCL (5MG) 5 MG TABLET PO SCH ×2 (09:00→17:00)
[2017-11-24] MEDS: AMIODARONE HCL 200 MG TABLET PO SCH (09:00)
[2017-11-24] MEDS: LACTULOSE 10 G/15 ML UDC (PYXIS) GT SCH (09:00)
[2017-11-24] MEDS: CHOLECALCIFEROL 1,000 UNIT TABLET (VIT D3) GT SCH (09:00)
[2017-11-24] MEDS: DOCUSATE SODIUM LIQ 100 MG/10 ML UDC GT SCH (09:00)
[2017-11-24] MEDS: LEVETIRACETAM (500MG) 500 MG in IV NS 0.9% 100 ML IV SCH ×2 (09:03→20:59)
[2017-11-24] MEDS: PANTOPRAZOLE 40 MG VIAL IV SCH ×2 (09:04→17:50)
[2017-11-24] MEDS: COD LIVER OIL/ZINC OXIDE 120 GM TUBE TP SCH ×2 (09:04→17:51)
[2017-11-24] MEDS: Z GUARD REMEDY 2 OZ OINT TP SCH (09:05)
[2017-11-24] MEDS: VANCOMYCIN 0.75 GM in IV D5W 250 ML IV SCH (10:35)
[2017-11-24 12:00] VITALS: BP 110/59
[2017-11-24] MEDS: INSULIN REGULAR, HUMAN 100 UNIT/ML 3 ML VIAL SQ PRN (12:11)
[2017-11-24] MEDS: POTASSIUM PHOSPHATE MM 7.5 MMOL in IV D5W 100 ML IV SCH ×2 (14:13→18:46)
[2017-11-24] MEDS ORDERED: TPN BAG #3 IV PRN ×6 (15:00)
[2017-11-24 16:00] VITALS: BP 99/58
[2017-11-24] MEDS: TPN BAG #3 IV PRN ×6 (16:13)
[2017-11-24] MEDS: RIVAROXABAN 10 MG TABLET GT SCH (17:00)
[2017-11-24] MEDS ORDERED: FAT EMULSION 20% 500 ML in PREMIX 1 EA IV PRN (18:00)
[2017-11-24 20:00] VITALS: BP 109/70
[2017-11-25] VITALS (7 sets, daily range): BP systolic 95–120; BP diastolic 55–64
[2017-11-25] MEDS: PIPERACILLIN /TAZOBACTAM 3.375 G in IV D5W 50 ML IV SCH (00:45)
[2017-11-25] MEDS: BLOOD SUGAR DIAGNOSTIC 1 EACH STRIP IN SCH ×4 (00:45→18:44)
[2017-11-25] MEDS: IPRATROPIUM NEB FS 0.5 MG/2.5 ML AMPUL.NEB NEB SCH ×4 (01:45→19:29)
[2017-11-25] MEDS: ALBUTEROL FS 2.5 MG/3 ML VIAL.NEB NEB SCH ×4 (01:45→19:29)
[2017-11-25] MEDS ORDERED: TPN BAG #4 IV PRN ×6 (04:00)
[2017-11-25 07:15] LABS: CALCIUM, SERUM 8.8 mg/dL (8.5-10.1); CREATININE 0.4 mg/dL (0.6-1.3); MAGNESIUM 1.7 mg/dL (1.8-2.4); PHOSPHORUS 2.7 mg/dL (2.5-4.9)
[2017-11-25] MEDS: ACETYLCYSTEINE 10% SOLN 400 MG/4 ML VIAL NEB SCH ×3 (07:54→23:36)
[2017-11-25] MEDS: FERROUS SULFATE UDC 300 MG/5 ML UDC GT SCH ×2 (09:00→17:00)
[2017-11-25] MEDS: MIDODRINE HCL (5MG) 5 MG TABLET PO SCH ×2 (09:00→17:00)
[2017-11-25] MEDS: DOCUSATE SODIUM LIQ 100 MG/10 ML UDC GT SCH (09:00)
[2017-11-25] MEDS: AMIODARONE HCL 200 MG TABLET PO SCH (09:00)
[2017-11-25] MEDS: LACTULOSE 10 G/15 ML UDC (PYXIS) GT SCH (09:00)
[2017-11-25] MEDS: CHOLECALCIFEROL 1,000 UNIT TABLET (VIT D3) GT SCH (09:00)
[2017-11-25] MEDS: Z GUARD REMEDY 2 OZ OINT TP SCH (09:00)
[2017-11-25] MEDS: LEVETIRACETAM (500MG) 500 MG in IV NS 0.9% 100 ML IV SCH ×2 (09:08→20:23)
[2017-11-25] MEDS: COD LIVER OIL/ZINC OXIDE 120 GM TUBE TP SCH ×2 (09:09→18:44)
[2017-11-25] MEDS: TPN BAG #3 IV PRN ×6 (09:32)
[2017-11-25] MEDS: PANTOPRAZOLE 40 MG VIAL IV SCH (09:39)
[2017-11-25] MEDS: VANCOMYCIN 0.75 GM in IV D5W 250 ML IV SCH (09:48)
[2017-11-25] MEDS: Z GUARD REMEDY 2 OZ OINT TP PRN ×3 (10:03→10:07)
[2017-11-25] MEDS ORDERED: FEE TPN 1 MIN EA MC ONE (15:48)
[2017-11-25] MEDS ORDERED: TPN BAG #5 IV PRN ×5 (16:00)
[2017-11-25] MEDS: RIVAROXABAN 10 MG TABLET GT SCH (17:00)
[2017-11-25] MEDS: CLOTRIMAZOLE 1% 15 GM TUBE TP SCH (18:44)
[2017-11-26] VITALS: BP 102/63
[2017-11-26] MEDS: INSULIN REGULAR, HUMAN 100 UNIT/ML 3 ML VIAL SQ PRN ×3 (00:08→23:49)
[2017-11-26] MEDS: BLOOD SUGAR DIAGNOSTIC 1 EACH STRIP IN SCH ×5 (00:08→23:49)
[2017-11-26] MEDS: ALBUTEROL FS 2.5 MG/3 ML VIAL.NEB NEB SCH ×4 (02:02→19:16)
[2017-11-26] MEDS: IPRATROPIUM NEB FS 0.5 MG/2.5 ML AMPUL.NEB NEB SCH ×4 (02:02→19:16)
[2017-11-26 04:00] VITALS: BP 118/61
[2017-11-26 07:09] LABS: BASOPHILS % (AUTO) 0.5 % (0.0-2.0); EOSINOPHILS % (AUTO) 4.5 % (0.0-6.0); HEMATOCRIT 30 % (39-51); HEMOGLOBIN 9.4 g/dL (13.5-17.5); LYMPHOCYTES # (AUTO) 1.9 /CMM (0.8-4.8); LYMPHOCYTES % (AUTO) 23.8 % (20.0-44.0); MEAN CORPUSCULAR HGB CONC 32 g/dl (31.0-36.0); MEAN CORPUSCULAR VOLUME 93 fL (80-96); MONOCYTES # (AUTO) 0.8 /CMM (0.1-1.30); MONOCYTES % (AUTO) 10.6 % (2.0-12.0); NEUTROPHILS # (AUTO) 4.8 /CMM (1.8-8.9); NEUTROPHILS % (AUTO) 60.6 % (43.0-81.0); PLATELET COUNT (AUTO) 441 /CMM (150-450); RDW COEFFICIENT OF VARIATION 19.4 (11.5-15.0); RED BLOOD CELL COUNT(AUTO) 3.19 MIL/uL (4.5-6.0)
[2017-11-26] MEDS: ACETYLCYSTEINE 10% SOLN 400 MG/4 ML VIAL NEB SCH ×2 (07:59→14:58)
[2017-11-26 08:00] VITALS: BP 98/52
[2017-11-26 08:01] LABS: CALCIUM, SERUM 8.7 mg/dL (8.5-10.1); CREATININE 0.2 mg/dL (0.6-1.3); MAGNESIUM 1.7 mg/dL (1.8-2.4); PHOSPHORUS 2.9 mg/dL (2.5-4.9)
[2017-11-26] MEDS: LEVETIRACETAM (500MG) 500 MG in IV NS 0.9% 100 ML IV SCH ×2 (08:38→20:12)
[2017-11-26] MEDS: PANTOPRAZOLE 40 MG VIAL IV SCH (08:38)
[2017-11-26] MEDS: DOCUSATE SODIUM LIQ 100 MG/10 ML UDC GT SCH (08:39)
[2017-11-26] MEDS: LACTULOSE 10 G/15 ML UDC (PYXIS) GT SCH (08:39)
[2017-11-26] MEDS: FERROUS SULFATE UDC 300 MG/5 ML UDC GT SCH ×2 (08:39→17:00)
[2017-11-26] MEDS: CHOLECALCIFEROL 1,000 UNIT TABLET (VIT D3) GT SCH (08:39)
[2017-11-26] MEDS: MIDODRINE HCL (5MG) 5 MG TABLET PO SCH ×2 (08:40→17:00)
[2017-11-26] MEDS: AMIODARONE HCL 200 MG TABLET PO SCH (08:40)
[2017-11-26] MEDS: COD LIVER OIL/ZINC OXIDE 120 GM TUBE TP SCH ×2 (08:41→17:03)
[2017-11-26] MEDS: Z GUARD REMEDY 2 OZ OINT TP SCH (08:42)
[2017-11-26] MEDS: CLOTRIMAZOLE 1% 15 GM TUBE TP SCH ×2 (08:42→17:04)
[2017-11-26 12:00] VITALS: BP_SYST 111; BP_SYST 97; BP_DIAS 46; BP_DIAS 53
[2017-11-26 16:00] VITALS: BP 100/57
[2017-11-26] MEDS: RIVAROXABAN 10 MG TABLET GT SCH (17:00)
[2017-11-26] MEDS ORDERED: TPN BAG #6 IV PRN ×7 (18:00)
[2017-11-26 20:00] VITALS: BP 98/60
[2017-11-27] VITALS (7 sets, daily range): BP systolic 94–118; BP diastolic 58–67
[2017-11-27] MEDS: ACETYLCYSTEINE 10% SOLN 400 MG/4 ML VIAL NEB SCH ×3 (00:05→16:00)
[2017-11-27] MEDS: ALBUTEROL FS 2.5 MG/3 ML VIAL.NEB NEB SCH ×4 (01:36→19:43)
[2017-11-27] MEDS: IPRATROPIUM NEB FS 0.5 MG/2.5 ML AMPUL.NEB NEB SCH ×4 (01:36→19:43)
[2017-11-27] MEDS: BLOOD SUGAR DIAGNOSTIC 1 EACH STRIP IN SCH ×3 (05:08→17:29)
[2017-11-27] MEDS: INSULIN REGULAR, HUMAN 100 UNIT/ML 3 ML VIAL SQ PRN (05:08)
[2017-11-27 06:22] LABS: BASOPHILS # (AUTO) 0.1 /CMM (0.0-0.2); BASOPHILS % (AUTO) 0.8 % (0.0-2.0); EOSINOPHILS % (AUTO) 3.9 % (0.0-6.0); HEMATOCRIT 31 % (39-51); HEMOGLOBIN 9.6 g/dL (13.5-17.5); LYMPHOCYTES # (AUTO) 2.4 /CMM (0.8-4.8); LYMPHOCYTES % (AUTO) 28.1 % (20.0-44.0); MEAN CORPUSCULAR HGB CONC 31 g/dl (31.0-36.0); MEAN CORPUSCULAR VOLUME 92 fL (80-96); MONOCYTES # (AUTO) 0.9 /CMM (0.1-1.30); MONOCYTES % (AUTO) 11.1 % (2.0-12.0); NEUTROPHILS # (AUTO) 4.8 /CMM (1.8-8.9); NEUTROPHILS % (AUTO) 56.1 % (43.0-81.0); PLATELET COUNT (AUTO) 422 /CMM (150-450); RDW COEFFICIENT OF VARIATION 19.8 (11.5-15.0); RED BLOOD CELL COUNT(AUTO) 3.34 MIL/uL (4.5-6.0); WHITE BLOOD COUNT (AUTO) 8.5 K/uL (4.3-11.0)
[2017-11-27 06:44] LABS: CALCIUM, SERUM 9.2 mg/dL (8.5-10.1); CREATININE 0.3 mg/dL (0.6-1.3); MAGNESIUM 2.2 mg/dL (1.8-2.4); PHOSPHORUS 3.2 mg/dL (2.5-4.9); POTASSIUM 4.7 mmol/L (3.5-5.1)
[2017-11-27] MEDS: FERROUS SULFATE UDC 300 MG/5 ML UDC GT SCH ×2 (09:00→17:00)
[2017-11-27] MEDS: AMIODARONE HCL 200 MG TABLET PO SCH (09:00)
[2017-11-27] MEDS ORDERED: FENTANYL PF 100MCG/2ML AMPUL ONE (09:00)
[2017-11-27] MEDS: LACTULOSE 10 G/15 ML UDC (PYXIS) GT SCH (09:00)
[2017-11-27] MEDS: DOCUSATE SODIUM LIQ 100 MG/10 ML UDC GT SCH (09:00)
[2017-11-27] MEDS: MIDODRINE HCL (5MG) 5 MG TABLET PO SCH ×2 (09:00→17:00)
[2017-11-27] MEDS: CHOLECALCIFEROL 1,000 UNIT TABLET (VIT D3) GT SCH (09:00)
[2017-11-27] MEDS: LEVETIRACETAM (500MG) 500 MG in IV NS 0.9% 100 ML IV SCH ×2 (09:58→20:39)
[2017-11-27] MEDS: PANTOPRAZOLE 40 MG VIAL IV SCH (09:59)
[2017-11-27] MEDS: COD LIVER OIL/ZINC OXIDE 120 GM TUBE TP SCH ×2 (10:33→17:09)
[2017-11-27] MEDS: CLOTRIMAZOLE 1% 15 GM TUBE TP SCH ×3 (10:34→17:09)
[2017-11-27] MEDS: Z GUARD REMEDY 2 OZ OINT TP SCH (10:34)
[2017-11-27] MEDS ORDERED: TPN BAG #7 IV PRN ×6 (12:00)
[2017-11-27] MEDS ORDERED: TPN BAG #8 IV PRN ×4 (12:00)
[2017-11-27] MEDS: FAT EMULSION 20% 500 ML in PREMIX 1 EA IV SCH (13:06)
[2017-11-27] MEDS: RIVAROXABAN 10 MG TABLET GT SCH (17:00)
[2017-11-28] VITALS: BP 113/63
[2017-11-28] MEDS: BLOOD SUGAR DIAGNOSTIC 1 EACH STRIP IN SCH ×4 (00:16→17:51)
[2017-11-28] MEDS: INSULIN REGULAR, HUMAN 100 UNIT/ML 3 ML VIAL SQ PRN ×2 (00:29→06:35)
[2017-11-28] MEDS: ACETYLCYSTEINE 10% SOLN 400 MG/4 ML VIAL NEB SCH ×4 (00:29→23:27)
[2017-11-28] MEDS: ALBUTEROL FS 2.5 MG/3 ML VIAL.NEB NEB SCH ×4 (00:31→20:04)
[2017-11-28] MEDS: IPRATROPIUM NEB FS 0.5 MG/2.5 ML AMPUL.NEB NEB SCH ×4 (00:31→20:04)
[2017-11-28 04:00] VITALS: BP 118/70
[2017-11-28 07:39] LABS: BASOPHILS # (AUTO) 0.3 /CMM (0.0-0.2); BASOPHILS % (AUTO) 3.5 % (0.0-2.0); EOSINOPHILS % (AUTO) 4.1 % (0.0-6.0); HEMATOCRIT 29 % (39-51); HEMOGLOBIN 9.2 g/dL (13.5-17.5); LYMPHOCYTES # (AUTO) 2.6 /CMM (0.8-4.8); LYMPHOCYTES % (AUTO) 30.1 % (20.0-44.0); MEAN CORPUSCULAR HGB CONC 32 g/dl (31.0-36.0); MEAN CORPUSCULAR VOLUME 91 fL (80-96); MONOCYTES # (AUTO) 0.8 /CMM (0.1-1.30); MONOCYTES % (AUTO) 9.6 % (2.0-12.0); NEUTROPHILS # (AUTO) 4.6 /CMM (1.8-8.9); NEUTROPHILS % (AUTO) 52.7 % (43.0-81.0); PLATELET COUNT (AUTO) 434 /CMM (150-450); RDW COEFFICIENT OF VARIATION 19.3 (11.5-15.0); WHITE BLOOD COUNT (AUTO) 8.8 K/uL (4.3-11.0)
[2017-11-28 07:46] LABS: CALCIUM, SERUM 9.3 mg/dL (8.5-10.1); CREATININE 0.3 mg/dL (0.6-1.3); POTASSIUM 4.4 mmol/L (3.5-5.1)
[2017-11-28 07:47] LABS: MAGNESIUM 2.4 mg/dL (1.8-2.4); PHOSPHORUS 3.1 mg/dL (2.5-4.9)
[2017-11-28 08:00] VITALS: BP 116/57
[2017-11-28] MEDS: PANTOPRAZOLE 40 MG VIAL IV SCH (08:08)
[2017-11-28] MEDS: LACTULOSE 10 G/15 ML UDC (PYXIS) GT SCH (08:08)
[2017-11-28] MEDS: LEVETIRACETAM (500MG) 500 MG in IV NS 0.9% 100 ML IV SCH ×2 (08:08→21:30)
[2017-11-28] MEDS: CHOLECALCIFEROL 1,000 UNIT TABLET (VIT D3) GT SCH (08:09)
[2017-11-28] MEDS: AMIODARONE HCL 200 MG TABLET PO SCH (08:09)
[2017-11-28] MEDS: FERROUS SULFATE UDC 300 MG/5 ML UDC GT SCH ×2 (08:09→17:00)
[2017-11-28] MEDS: DOCUSATE SODIUM LIQ 100 MG/10 ML UDC GT SCH (08:09)
[2017-11-28] MEDS: MIDODRINE HCL (5MG) 5 MG TABLET PO SCH ×2 (08:10→17:00)
[2017-11-28] MEDS: COD LIVER OIL/ZINC OXIDE 120 GM TUBE TP SCH ×2 (08:22→17:51)
[2017-11-28] MEDS: Z GUARD REMEDY 2 OZ OINT TP PRN (08:23)
[2017-11-28] MEDS: Z GUARD REMEDY 2 OZ OINT TP SCH (08:29)
[2017-11-28 12:00] VITALS: BP 115/63
[2017-11-28] MEDS ORDERED: TPN #9 IV PRN ×6 (12:00)
[2017-11-28] MEDS ORDERED: SILVER NITRATE APPLICATOR 1 EA BOX TP ONE (12:00)
[2017-11-28] MEDS: CLOTRIMAZOLE 1% 15 GM TUBE TP SCH ×2 (12:33→17:51)
[2017-11-28 16:00] VITALS: BP 100/49
[2017-11-28] MEDS: RIVAROXABAN 10 MG TABLET GT SCH (17:00)
[2017-11-28 20:00] VITALS: BP 93/50
[2017-11-29] VITALS: BP 103/56
[2017-11-29] MEDS: BLOOD SUGAR DIAGNOSTIC 1 EACH STRIP IN SCH ×4 (00:26→18:17)
[2017-11-29] MEDS: ALBUTEROL FS 2.5 MG/3 ML VIAL.NEB NEB SCH ×4 (01:22→19:54)
[2017-11-29] MEDS: IPRATROPIUM NEB FS 0.5 MG/2.5 ML AMPUL.NEB NEB SCH ×4 (01:22→19:54)
[2017-11-29 04:00] VITALS: BP 115/72
[2017-11-29 07:00] LABS: BASOPHILS # (AUTO) 0.1 /CMM (0.0-0.2); EOSINOPHILS % (AUTO) 3.6 % (0.0-6.0); HEMATOCRIT 32 % (39-51); HEMOGLOBIN 10.3 g/dL (13.5-17.5); LYMPHOCYTES # (AUTO) 2.6 /CMM (0.8-4.8); LYMPHOCYTES % (AUTO) 29.8 % (20.0-44.0); MEAN CORPUSCULAR HGB CONC 32 g/dl (31.0-36.0); MEAN CORPUSCULAR VOLUME 92 fL (80-96); MONOCYTES # (AUTO) 0.7 /CMM (0.1-1.30); MONOCYTES % (AUTO) 8.4 % (2.0-12.0); NEUTROPHILS % (AUTO) 57.2 % (43.0-81.0); PLATELET COUNT (AUTO) 452 /CMM (150-450); RDW COEFFICIENT OF VARIATION 19.6 (11.5-15.0); RED BLOOD CELL COUNT(AUTO) 3.54 MIL/uL (4.5-6.0); WHITE BLOOD COUNT (AUTO) 8.7 K/uL (4.3-11.0)
[2017-11-29 07:02] LABS: CALCIUM, SERUM 9.5 mg/dL (8.5-10.1); CREATININE 0.3 mg/dL (0.6-1.3); POTASSIUM 3.9 mmol/L (3.5-5.1)
[2017-11-29] MEDS: ACETYLCYSTEINE 10% SOLN 400 MG/4 ML VIAL NEB SCH ×2 (07:27→15:59)
[2017-11-29 08:11] VITALS: BP 135/76
[2017-11-29] MEDS: PANTOPRAZOLE 40 MG VIAL IV SCH (08:38)
[2017-11-29] MEDS: COD LIVER OIL/ZINC OXIDE 120 GM TUBE TP SCH ×2 (08:38→17:14)
[2017-11-29] MEDS: LEVETIRACETAM (500MG) 500 MG in IV NS 0.9% 100 ML IV SCH ×2 (08:38→21:34)
[2017-11-29] MEDS: CLOTRIMAZOLE 1% 15 GM TUBE TP SCH ×2 (08:39→17:14)
[2017-11-29] MEDS: Z GUARD REMEDY 2 OZ OINT TP SCH (08:40)
[2017-11-29] MEDS: AMIODARONE HCL 200 MG TABLET PO SCH (09:00)
[2017-11-29] MEDS: CHOLECALCIFEROL 1,000 UNIT TABLET (VIT D3) GT SCH (09:00)
[2017-11-29] MEDS: DOCUSATE SODIUM LIQ 100 MG/10 ML UDC GT SCH (09:00)
[2017-11-29] MEDS: LACTULOSE 10 G/15 ML UDC (PYXIS) GT SCH (09:00)
[2017-11-29] MEDS: FERROUS SULFATE UDC 300 MG/5 ML UDC GT SCH (09:00)
[2017-11-29] MEDS: MIDODRINE HCL (5MG) 5 MG TABLET PO SCH (09:00)
[2017-11-29] MEDS ORDERED: TPN #11 IV PRN ×6 (11:00)
[2017-11-29] MEDS: FAT EMULSION 20% 500 ML in PREMIX 1 EA IV SCH (11:19)
[2017-11-29 12:00] VITALS: BP 113/59
[2017-11-29] MEDS ORDERED: TPN #10 IV PRN ×8 (12:00→14:30)
[2017-11-29] MEDS ORDERED: MORPHINE SULFATE INJ 4 MG/ML DISP.SYRIN IM ONE (13:00)
[2017-11-29 16:00] VITALS: BP 115/65
[2017-11-29 20:00] VITALS: BP 105/61
[2017-11-30] VITALS: BP 116/73
[2017-11-30] MEDS: ALBUTEROL FS 2.5 MG/3 ML VIAL.NEB NEB SCH ×4 (00:37→19:28)
[2017-11-30] MEDS: IPRATROPIUM NEB FS 0.5 MG/2.5 ML AMPUL.NEB NEB SCH ×4 (00:37→19:28)
[2017-11-30] MEDS: ACETYLCYSTEINE 10% SOLN 400 MG/4 ML VIAL NEB SCH ×4 (00:38→23:45)
[2017-11-30] MEDS: INSULIN REGULAR, HUMAN 100 UNIT/ML 3 ML VIAL SQ PRN ×2 (00:53→07:21)
[2017-11-30] MEDS: BLOOD SUGAR DIAGNOSTIC 1 EACH STRIP IN SCH ×5 (00:54→23:08)
[2017-11-30 04:00] VITALS: BP 117/71
[2017-11-30 06:35] LABS: BASOPHILS # (AUTO) 0.1 /CMM (0.0-0.2); BASOPHILS % (AUTO) 0.6 % (0.0-2.0); EOSINOPHILS % (AUTO) 3.3 % (0.0-6.0); HEMATOCRIT 30 % (39-51); HEMOGLOBIN 9.5 g/dL (13.5-17.5); LYMPHOCYTES # (AUTO) 1.8 /CMM (0.8-4.8); LYMPHOCYTES % (AUTO) 20.5 % (20.0-44.0); MEAN CORPUSCULAR HGB CONC 32 g/dl (31.0-36.0); MEAN CORPUSCULAR VOLUME 93 fL (80-96); MONOCYTES # (AUTO) 0.8 /CMM (0.1-1.30); MONOCYTES % (AUTO) 8.5 % (2.0-12.0); NEUTROPHILS % (AUTO) 67.1 % (43.0-81.0); PLATELET COUNT (AUTO) 505 /CMM (150-450); RDW COEFFICIENT OF VARIATION 19.9 (11.5-15.0); RED BLOOD CELL COUNT(AUTO) 3.26 MIL/uL (4.5-6.0)
[2017-11-30 06:49] LABS: CALCIUM, SERUM 9.2 mg/dL (8.5-10.1); CREATININE 0.4 mg/dL (0.6-1.3); MAGNESIUM 2.1 mg/dL (1.8-2.4); PHOSPHORUS 3.3 mg/dL (2.5-4.9); POTASSIUM 4.1 mmol/L (3.5-5.1)
[2017-11-30 08:00] VITALS: BP 111/58
[2017-11-30] MEDS: LEVETIRACETAM (500MG) 500 MG in IV NS 0.9% 100 ML IV SCH ×2 (08:26→21:19)
[2017-11-30] MEDS: PANTOPRAZOLE 40 MG VIAL IV SCH (08:27)
[2017-11-30] MEDS: COD LIVER OIL/ZINC OXIDE 120 GM TUBE TP SCH ×2 (08:28→19:36)
[2017-11-30] MEDS: Z GUARD REMEDY 2 OZ OINT TP PRN ×3 (08:28→09:47)
[2017-11-30] MEDS: Z GUARD REMEDY 2 OZ OINT TP SCH (09:00)
[2017-11-30] MEDS: LACTULOSE 10 G/15 ML UDC (PYXIS) GT SCH (09:00)
[2017-11-30] MEDS ORDERED: TPN #12 IV PRN ×6 (09:00)
[2017-11-30] MEDS: CLOTRIMAZOLE 1% 15 GM TUBE TP SCH ×2 (09:46→19:37)
[2017-11-30 12:00] VITALS: BP 111/60
[2017-11-30 16:00] VITALS: BP 103/59
[2017-11-30 20:00] VITALS: BP_SYST 122; BP_SYST 123; BP_DIAS 61; BP_DIAS 64
[2017-12-01] VITALS: BP 123/64
[2017-12-01] MEDS: IPRATROPIUM NEB FS 0.5 MG/2.5 ML AMPUL.NEB NEB SCH ×4 (00:33→20:04)
[2017-12-01] MEDS: ALBUTEROL FS 2.5 MG/3 ML VIAL.NEB NEB SCH ×4 (00:33→20:04)
[2017-12-01 04:00] VITALS: BP 117/64
[2017-12-01] MEDS: BLOOD SUGAR DIAGNOSTIC 1 EACH STRIP IN SCH ×4 (05:03→23:38)
[2017-12-01 07:27] LABS: BASOPHILS # (AUTO) 0.1 /CMM (0.0-0.2); BASOPHILS % (AUTO) 0.7 % (0.0-2.0); EOSINOPHILS % (AUTO) 3.4 % (0.0-6.0); HEMATOCRIT 28 % (39-51); HEMOGLOBIN 8.9 g/dL (13.5-17.5); LYMPHOCYTES % (AUTO) 22.3 % (20.0-44.0); MEAN CORPUSCULAR HGB CONC 32 g/dl (31.0-36.0); MEAN CORPUSCULAR VOLUME 91 fL (80-96); MONOCYTES # (AUTO) 0.8 /CMM (0.1-1.30); MONOCYTES % (AUTO) 9.4 % (2.0-12.0); NEUTROPHILS # (AUTO) 5.7 /CMM (1.8-8.9); NEUTROPHILS % (AUTO) 64.2 % (43.0-81.0); PLATELET COUNT (AUTO) 501 /CMM (150-450); RDW COEFFICIENT OF VARIATION 19.4 (11.5-15.0); RED BLOOD CELL COUNT(AUTO) 3.09 MIL/uL (4.5-6.0); WHITE BLOOD COUNT (AUTO) 8.9 K/uL (4.3-11.0)
[2017-12-01 07:47] LABS: CALCIUM, SERUM 9.3 mg/dL (8.5-10.1); CREATININE 0.3 mg/dL (0.6-1.3); PHOSPHORUS 2.8 mg/dL (2.5-4.9)
[2017-12-01 08:00] VITALS: BP 115/59
[2017-12-01] MEDS: ACETYLCYSTEINE 10% SOLN 400 MG/4 ML VIAL NEB SCH ×3 (08:15→22:47)
[2017-12-01] MEDS: LACTULOSE 10 G/15 ML UDC (PYXIS) GT SCH (09:00)
[2017-12-01] MEDS: LEVETIRACETAM (500MG) 500 MG in IV NS 0.9% 100 ML IV SCH ×2 (09:23→20:29)
[2017-12-01] MEDS: PANTOPRAZOLE 40 MG VIAL IV SCH (09:23)
[2017-12-01] MEDS: CLOTRIMAZOLE 1% 15 GM TUBE TP SCH ×2 (09:24→18:24)
[2017-12-01] MEDS: COD LIVER OIL/ZINC OXIDE 120 GM TUBE TP SCH ×2 (09:25→18:24)
[2017-12-01] MEDS: Z GUARD REMEDY 2 OZ OINT TP SCH (09:25)
[2017-12-01] MEDS: FAT EMULSION 20% 500 ML in PREMIX 1 EA IV SCH (09:26)
[2017-12-01] MEDS ORDERED: TPN BAG #13 IV PRN ×5 (11:30)
[2017-12-01] MEDS ORDERED: TPN BAG #14 IV PRN ×7 (11:30)
[2017-12-01 12:00] VITALS: BP 94/51
[2017-12-01] MEDS: POTASSIUM CL. PREMIX PERIPHER. 50 ML IV SCH ×6 (12:19→18:23)
[2017-12-01 16:00] VITALS: BP 87/51
[2017-12-01 20:00] VITALS: BP 101/54
[2017-12-02] VITALS: BP 111/59
[2017-12-02] MEDS: ALBUTEROL FS 2.5 MG/3 ML VIAL.NEB NEB SCH ×4 (01:08→19:47)
[2017-12-02] MEDS: IPRATROPIUM NEB FS 0.5 MG/2.5 ML AMPUL.NEB NEB SCH ×4 (01:08→19:47)
[2017-12-02 04:00] VITALS: BP 104/62
[2017-12-02] MEDS: BLOOD SUGAR DIAGNOSTIC 1 EACH STRIP IN SCH ×4 (05:38→23:59)
[2017-12-02] MEDS: ACETYLCYSTEINE 10% SOLN 400 MG/4 ML VIAL NEB SCH ×2 (07:35→14:36)
[2017-12-02 08:00] VITALS: BP 119/69
[2017-12-02] MEDS: LACTULOSE 10 G/15 ML UDC (PYXIS) GT SCH (09:00)
[2017-12-02] MEDS: LEVETIRACETAM (500MG) 500 MG in IV NS 0.9% 100 ML IV SCH ×2 (09:10→20:15)
[2017-12-02] MEDS: PANTOPRAZOLE 40 MG VIAL IV SCH (09:10)
[2017-12-02] MEDS: Z GUARD REMEDY 2 OZ OINT TP SCH (09:18)
[2017-12-02] MEDS: CLOTRIMAZOLE 1% 15 GM TUBE TP SCH (09:18)
[2017-12-02] MEDS: COD LIVER OIL/ZINC OXIDE 120 GM TUBE TP SCH ×2 (09:18→17:57)
[2017-12-02 10:13] LABS: CALCIUM, SERUM 9.3 mg/dL (8.5-10.1); CREATININE 0.2 mg/dL (0.6-1.3); PHOSPHORUS 3.1 mg/dL (2.5-4.9); POTASSIUM 5.3 mmol/L (3.5-5.1)
[2017-12-02 10:24] LABS: BASOPHILS % (AUTO) 0.4 % (0.0-2.0); EOSINOPHILS % (AUTO) 1.8 % (0.0-6.0); HEMATOCRIT 22 % (39-51); HEMOGLOBIN 7.5 g/dL (13.5-17.5); LYMPHOCYTES # (AUTO) 1.5 /CMM (0.8-4.8); LYMPHOCYTES % (AUTO) 23.5 % (20.0-44.0); MEAN CORPUSCULAR HGB CONC 34 g/dl (31.0-36.0); MEAN CORPUSCULAR VOLUME 96 fL (80-96); MONOCYTES # (AUTO) 0.7 /CMM (0.1-1.30); MONOCYTES % (AUTO) 11.3 % (2.0-12.0); NEUTROPHILS # (AUTO) 4.1 /CMM (1.8-8.9); PLATELET COUNT (AUTO) 215 /CMM (150-450); RDW COEFFICIENT OF VARIATION 20.2 (11.5-15.0); RED BLOOD CELL COUNT(AUTO) 2.28 MIL/uL (4.5-6.0); WHITE BLOOD COUNT (AUTO) 6.4 K/uL (4.3-11.0)
[2017-12-02 12:00] VITALS: BP 98/48
[2017-12-02] MEDS ORDERED: TPN IV PRN ×6 (12:30)
[2017-12-02] MEDS ORDERED: TPN BAG #15 IV PRN ×4 (13:00)
[2017-12-02 16:00] VITALS: BP 102/54
[2017-12-02 20:00] VITALS: BP 110/62
[2017-12-03] VITALS (7 sets, daily range): BP systolic 100–129; BP diastolic 55–80
[2017-12-03] MEDS: IPRATROPIUM NEB FS 0.5 MG/2.5 ML AMPUL.NEB NEB SCH ×4 (00:52→19:41)
[2017-12-03] MEDS: ACETYLCYSTEINE 10% SOLN 400 MG/4 ML VIAL NEB SCH ×4 (00:52→23:24)
[2017-12-03] MEDS: ALBUTEROL FS 2.5 MG/3 ML VIAL.NEB NEB SCH ×4 (00:52→19:41)
[2017-12-03] MEDS: BLOOD SUGAR DIAGNOSTIC 1 EACH STRIP IN SCH ×3 (05:34→18:05)
[2017-12-03 06:15] LABS: BASOPHILS # (AUTO) 0.1 /CMM (0.0-0.2); BASOPHILS % (AUTO) 1.3 % (0.0-2.0); EOSINOPHILS % (AUTO) 2.4 % (0.0-6.0); HEMATOCRIT 30 % (39-51); HEMOGLOBIN 9.3 g/dL (13.5-17.5); LYMPHOCYTES # (AUTO) 1.8 /CMM (0.8-4.8); LYMPHOCYTES % (AUTO) 21.8 % (20.0-44.0); MEAN CORPUSCULAR HGB CONC 31 g/dl (31.0-36.0); MEAN CORPUSCULAR VOLUME 92 fL (80-96); MONOCYTES # (AUTO) 0.7 /CMM (0.1-1.30); MONOCYTES % (AUTO) 7.9 % (2.0-12.0); NEUTROPHILS # (AUTO) 5.6 /CMM (1.8-8.9); NEUTROPHILS % (AUTO) 66.6 % (43.0-81.0); PLATELET COUNT (AUTO) 465 /CMM (150-450); RDW COEFFICIENT OF VARIATION 19.3 (11.5-15.0); RED BLOOD CELL COUNT(AUTO) 3.29 MIL/uL (4.5-6.0); WHITE BLOOD COUNT (AUTO) 8.4 K/uL (4.3-11.0)
[2017-12-03 06:42] LABS: CALCIUM, SERUM 9.8 mg/dL (8.5-10.1); CREATININE 0.2 mg/dL (0.6-1.3); MAGNESIUM 2.2 mg/dL (1.8-2.4); PHOSPHORUS 3.3 mg/dL (2.5-4.9); POTASSIUM 4.9 mmol/L (3.5-5.1)
[2017-12-03] MEDS: LEVETIRACETAM (500MG) 500 MG in IV NS 0.9% 100 ML IV SCH ×2 (07:52→20:50)
[2017-12-03] MEDS: LACTULOSE 10 G/15 ML UDC (PYXIS) GT SCH (09:00)
[2017-12-03] MEDS: PANTOPRAZOLE 40 MG VIAL IV SCH (09:43)
[2017-12-03] MEDS: FAT EMULSION 20% 500 ML in PREMIX 1 EA IV SCH (11:05)
[2017-12-03] MEDS: COD LIVER OIL/ZINC OXIDE 120 GM TUBE TP SCH ×2 (11:46→18:01)
[2017-12-03] MEDS: Z GUARD REMEDY 2 OZ OINT TP PRN (17:59)
[2017-12-03] MEDS ORDERED: TPN BAG #17 IV PRN ×2 (18:00)
[2017-12-03] MEDS: Z GUARD REMEDY 2 OZ OINT TP SCH (18:01)
[2017-12-03] MEDS: VANCOMYCIN 1 GM VIAL ONE (20:38)
[2017-12-04] VITALS: BP 99/62
[2017-12-04] MEDS: BLOOD SUGAR DIAGNOSTIC 1 EACH STRIP IN SCH ×3 (00:54→13:16)
[2017-12-04] MEDS: INSULIN REGULAR, HUMAN 100 UNIT/ML 3 ML VIAL SQ PRN (00:55)
[2017-12-04] MEDS: ALBUTEROL FS 2.5 MG/3 ML VIAL.NEB NEB SCH ×2 (00:56→07:50)
[2017-12-04] MEDS: IPRATROPIUM NEB FS 0.5 MG/2.5 ML AMPUL.NEB NEB SCH ×2 (00:56→07:50)
[2017-12-04 04:00] VITALS: BP 106/66
[2017-12-04 07:20] LABS: MAGNESIUM 1.8 mg/dL (1.8-2.4); PHOSPHORUS 3.1 mg/dL (2.5-4.9)
[2017-12-04] MEDS: ACETYLCYSTEINE 10% SOLN 400 MG/4 ML VIAL NEB SCH (07:50)
[2017-12-04 08:00] VITALS: BP 103/66
[2017-12-04] MEDS ORDERED: TPN BAG #18 IV PRN ×4 (08:00)
[2017-12-04] MEDS: LACTULOSE 10 G/15 ML UDC (PYXIS) GT SCH ×2 (09:00→09:43)
[2017-12-04] MEDS: Z GUARD REMEDY 2 OZ OINT TP SCH (09:43)
[2017-12-04] MEDS: PANTOPRAZOLE 40 MG VIAL IV SCH (09:43)
[2017-12-04] MEDS: LEVETIRACETAM (500MG) 500 MG in IV NS 0.9% 100 ML IV SCH (09:43)
[2017-12-04] MEDS: COD LIVER OIL/ZINC OXIDE 120 GM TUBE TP SCH (09:43)
[2017-12-04] MEDS: FAT EMULSION 20% 500 ML in PREMIX 1 EA IV SCH (10:59)
[2017-12-04 12:00] VITALS: BP 105/60
== END 2017-12-04 12:57 | DRG 720 ==
LOC: ER 18:47 → ICU 21:31 → TELE-TD 11-16 16:25 → TELE1 11-17 16:19
PROVIDERS: ADMIT Registered Nurse; ATTEND Registered Nurse
PROC: 5A1955Z Respiratory Ventilation, Greater than 96 Consecutive Hours (ICD-10-PCS; principal; 2017-11-08)
PROC: B548ZZA Ultrasonography of Superior Vena Cava, Guidance (ICD-10-PCS; 2017-11-09)
PROC: 02HV33Z Insertion of Infusion Device into Superior Vena Cava, Percutaneous Approach (ICD-10-PCS; 2017-11-09)
PROC: 5A09357 Assistance with Respiratory Ventilation, Less than 24 Consecutive Hours, Continuous Positive Airway Pressure (ICD-10-PCS; 2017-11-14)
PROC: 0JB80ZZ Excision of Abdomen Subcutaneous Tissue and Fascia, Open Approach (ICD-10-PCS; 2017-11-29)
DX: A41.9 Sepsis, unspecified organism (principal); J96.21 Acute and chronic respiratory failure with hypoxia; R65.21 Severe sepsis with septic shock; J69.0 Pneumonitis due to inhalation of food and vomit; Z99.11 Dependence on respirator [ventilator] status; G93.1 Anoxic brain damage, not elsewhere classified; G93.41 Metabolic encephalopathy; I50.33 Acute on chronic diastolic (congestive) heart failure; J81.1 Chronic pulmonary edema; E44.0 Moderate protein-calorie malnutrition; K94.22 Gastrostomy infection; K94.23 Gastrostomy malfunction; J96.22 Acute and chronic respiratory failure with hypercapnia; E66.9 Obesity, unspecified; E86.0 Dehydration; I25.5 Ischemic cardiomyopathy; R53.2 Functional quadriplegia; G40.909 Epilepsy, unspecified, not intractable, without status epilepticus; Z99.2 Dependence on renal dialysis; Z87.820 Personal history of traumatic brain injury; Z79.01 Long term (current) use of anticoagulants; Z86.74 Personal history of sudden cardiac arrest; Z87.01 Personal history of pneumonia (recurrent); K21.9 Gastro-esophageal reflux disease without esophagitis; Z88.1 Allergy status to other antibiotic agents; Z79.899 Other long term (current) drug therapy; R13.10 Dysphagia, unspecified; D64.9 Anemia, unspecified; Z68.36 Body mass index [BMI] 36.0-36.9, adult; I48.0 Paroxysmal atrial fibrillation; I48.92 Unspecified atrial flutter; N39.0 Urinary tract infection, site not specified; B96.89 Other specified bacterial agents as the cause of diseases classified elsewhere; E83.42 Hypomagnesemia; Z66 Do not resuscitate; K31.6 Fistula of stomach and duodenum; Y83.3 Surgical operation with formation of external stoma as the cause of abnormal reaction of the patient, or of later complication, without mention of misadventure at the time of the procedure; Y82.9 Unspecified medical devices associated with adverse incidents; B37.9 Candidiasis, unspecified; Y92.129 Unspecified place in nursing home as the place of occurrence of the external cause; L30.9 Dermatitis, unspecified; L03.311 Cellulitis of abdominal wall; E87.6 Hypokalemia; E87.3 Alkalosis
CPT/HCPCS: 31720; 36415; 36569; 36600; 71045-TC; 71250-TC; 74018; 80048-TC; 80053-TC; 80061-TC; 80202-TC; 81000-TC; 82040-TC; 82533; 82803-TC; 82962-TC; 83540-TC; 83605-TC; 83735-TC; 83880; 84100-TC; 84132-TC; 84478-TC; 84484-TC; 85025-TC; 85730-TC; 86850-TC; 87040-TC; 87070-TC; 87081-TC; 87086-TC; 87186-TC; 94003-TC; 94668-TC; 94760-TC; 94762-TC; 99082-TC; A4216; A4217; A4606; A6253; A6402; A6403; A9563; C1751; C9113; J1200; J1720; J1815; J1940; J1953; J1956; J2543; J3010; J3370; J3475; J3480; J3490; J7030; J7040; J7042; J7050; J7060; J7070; P9047; Q9963; Z7610

== ENCOUNTER 2017-12-04 13:19 | Inpatient (IN) | END 2018-02-25 23:59 | disposition still patient (30) | DRG 130 | DX: J96.11 Chronic respiratory failure with hypoxia (principal); A41.9 Sepsis, unspecified organism; G93.1 Anoxic brain damage, not elsewhere classified; J18.9 Pneumonia, unspecified organism; E46 Unspecified protein-calorie malnutrition; K56.609 Unspecified intestinal obstruction, unspecified as to partial versus complete obstruction; I49.5 Sick sinus syndrome; Z99.11 Dependence on respirator [ventilator] status; R53.2 Functional quadriplegia; I48.91 Unspecified atrial fibrillation; Z86.74 Personal history of sudden cardiac arrest; R13.10 Dysphagia, unspecified; L03.311 Cellulitis of abdominal wall; Z93.1 Gastrostomy status; B35.3 Tinea pedis; K94.22 Gastrostomy infection; Y83.3 Surgical operation with formation of external stoma as the cause of abnormal reaction of the patient, or of later complication, without mention of misadventure at the time of the procedure; Y82.9 Unspecified medical devices associated with adverse incidents; Y92.129 Unspecified place in nursing home as the place of occurrence of the external cause; L85.3 Xerosis cutis; E87.6 Hypokalemia; K94.23 Gastrostomy malfunction; K80.20 Calculus of gallbladder without cholecystitis without obstruction; Z88.1 Allergy status to other antibiotic agents; K21.9 Gastro-esophageal reflux disease without esophagitis; D64.9 Anemia, unspecified; G40.909 Epilepsy, unspecified, not intractable, without status epilepticus; K56.7 Ileus, unspecified; J98.11 Atelectasis; Z68.36 Body mass index [BMI] 36.0-36.9, adult; I50.9 Heart failure, unspecified; E66.9 Obesity, unspecified; L30.9 Dermatitis, unspecified; M81.0 Age-related osteoporosis without current pathological fracture; I25.5 Ischemic cardiomyopathy ==

== ENCOUNTER 2018-02-26 | Inpatient (IN) | payer MEDICAID ==
[~2018-02-26] VITALS: Ht 157.5 cm; Wt 81.7 kg
[~2018-02-26] MED LIST changes: -FERR220S17 GT; +FERR220S2 GT; +POTA20PA3 GT; -POTA20PA34 GT; +RANI-655 GT; -RANI150T43 GT
[2018-02-27] MEDS ORDERED: NEOMY SULF/BACITRAC ZN/POLY 15 GM TUBE TP PRN (08:30)
[2018-02-27] MEDS ORDERED: ALBUTEROL FS 2.5 MG/3 ML VIAL.NEB NEB PRN (08:30)
[2018-02-27] MEDS ORDERED: IPRATROPIUM NEB FS 0.5 MG/2.5 ML AMPUL.NEB NEB PRN (08:30)
[2018-02-27] MEDS ORDERED: ONDANSETRON HCL/PF 4 MG/2 ML VIAL IVP PRN (08:30)
[2018-02-27] MEDS ORDERED: COD LIVER OIL/ZINC OXIDE 120 GM TUBE TP PRN (08:30)
[2018-02-27] MEDS ORDERED: HYDROGEN PEROXIDE 480 ML BOTTLE TP PRN (08:30)
[2018-02-27] MEDS ORDERED: diphenhydrAMINE HCL 50 MG/ML VIAL IV PRN (08:30)
[2018-02-27] MEDS: Z GUARD REMEDY 4 OZ OINT TP SCH ×2 (09:00→21:25)
[2018-02-27] MEDS: CLOTRIMAZOLE 1% 15 GM TUBE TP SCH ×2 (09:00→16:20)
[2018-02-27] MEDS: HYDROGEN PEROXIDE 480 ML BOTTLE TP SCH ×2 (09:00→21:24)
[2018-02-27] MEDS: Z GUARD REMEDY 2 OZ OINT TP SCH ×2 (09:00→21:25)
[2018-02-27] MEDS: COD LIVER OIL/ZINC OXIDE 120 GM TUBE TP SCH ×2 (09:00→16:20)
[2018-02-27] MEDS: VITS A AND D/WHITE PET/LANOLIN 5 GM PACKET TP SCH ×2 (09:00→21:26)
[2018-02-27] MEDS: POLYVINYL ALCOHOL 15 ML BOTTLE EACHEYE SCH ×4 (09:36→21:21)
[2018-02-27] MEDS: PROSOURCE / PROSTAT (PYXIS) 30 ML UDC JT SCH ×2 (09:37→16:20)
[2018-02-27] MEDS: RANITIDINE GT SCH ×2 (09:37→21:22)
[2018-02-27] MEDS: LEVETIRACETAM SOL (5 ML) 100 MG/ML UDC GT SCH ×2 (09:37→21:21)
--- NOTE | 2018-02-27 09:51 | NUR ---
Please see resident's previous account [phone] for all assessments and nurses notes. Originally admitted on 12/04/2017.
--- NOTE | 2018-02-27 10:29 | NUR ---
RT RECD PT TRACHED INTACT AND SECURED BRAULIO ORDERED SETTINGS. ALARMS ON AND AUDIBLE BAG AND MASK AT HOB. VENT PLUGGED IN RED OUTLET. TXS GIVEN BRAULIO'D WLL NO ADVERSE REACTION NOTED ATT SX THIN PALE YELLOW MODERATE SECRETIONS. NO RESP DISTRESS WILL CONT TO MONITOR Addendum: 02/27/18 at 1030 by SARAH ROGEL RT Amended: Links added.
--- NOTE | 2018-02-27 10:39 | NUR ---
Please see resident's previous account [id number] for Social Service assessments, evaluations and notes.
[2018-02-27] MEDS: ERYTHROMYCIN STEARATE 250 MG TABLET GT SCH ×3 (12:00→23:52)
[2018-02-27] MEDS: IPRATROPIUM NEB FS 0.5 MG/2.5 ML AMPUL.NEB NEB SCH ×2 (13:30→19:41)
[2018-02-27] MEDS: ALBUTEROL FS 2.5 MG/3 ML VIAL.NEB NEB SCH ×2 (13:30→19:41)
[2018-02-27 20:00] VITALS: BP 109/65
[2018-02-27] MEDS: POLYETHYLENE GLYCOL 3350 17 GM POWD.PACK GT SCH (21:26)
[2018-02-28] MEDS: JEVITY 1.2 CAL 1,000 ML BOTTLE GT PRN (00:15)
[2018-02-28] MEDS: IPRATROPIUM NEB FS 0.5 MG/2.5 ML AMPUL.NEB NEB SCH ×4 (02:02→19:39)
[2018-02-28] MEDS: ALBUTEROL FS 2.5 MG/3 ML VIAL.NEB NEB SCH ×4 (02:02→19:39)
[2018-02-28] MEDS: ERYTHROMYCIN STEARATE 250 MG TABLET GT SCH ×3 (05:28→17:47)
[2018-02-28] MEDS: POLYVINYL ALCOHOL 15 ML BOTTLE EACHEYE SCH ×4 (08:45→21:00)
[2018-02-28] MEDS: RANITIDINE GT SCH ×2 (08:45→21:00)
[2018-02-28] MEDS: PROSOURCE / PROSTAT (PYXIS) 30 ML UDC JT SCH ×2 (08:46→17:06)
[2018-02-28] MEDS: LEVETIRACETAM SOL (5 ML) 100 MG/ML UDC GT SCH ×2 (08:46→21:00)
[2018-02-28] MEDS: CLOTRIMAZOLE 1% 15 GM TUBE TP SCH ×2 (09:00→17:06)
[2018-02-28] MEDS: Z GUARD REMEDY 2 OZ OINT TP SCH ×2 (09:00→21:00)
[2018-02-28] MEDS: VITS A AND D/WHITE PET/LANOLIN 5 GM PACKET TP SCH ×2 (09:00→21:00)
[2018-02-28] MEDS: Z GUARD REMEDY 4 OZ OINT TP SCH ×2 (09:00→21:00)
[2018-02-28] MEDS: COD LIVER OIL/ZINC OXIDE 120 GM TUBE TP SCH ×2 (09:00→17:06)
[2018-02-28] MEDS: HYDROGEN PEROXIDE 480 ML BOTTLE TP SCH ×2 (09:00→21:00)
[2018-02-28 20:30] VITALS: BP 107/66
--- NOTE | 2018-02-28 20:30 | NUR ---
Seen by Germaine Mike no new order.
--- NOTE | 2018-02-28 20:44 | NUR ---
RT NOTE PATIENT RECEIVED TRACHED ON MECHANICAL VENTILATION. AMBU BAG/BACK UP TRACH @ BEDSIDE. TX GIVEN, NO ADVERSE REACTIONS NOTED. SX DONE, MODERATE THICK WHITE SECRETIONS NOTED. ALARMS ON AND AUDIBLE. PATIENT STABLE. WILL MONITOR T/O SHIFT. Addendum: 02/28/18 at 2044 by MILAN CARRASCO RT Amended: Links added.
[2018-02-28] MEDS: POLYETHYLENE GLYCOL 3350 17 GM POWD.PACK GT SCH (21:00)
[2018-03-01] MEDS: ERYTHROMYCIN STEARATE 250 MG TABLET GT SCH ×5 (00:25→23:58)
[2018-03-01] MEDS: IPRATROPIUM NEB FS 0.5 MG/2.5 ML AMPUL.NEB NEB SCH ×4 (01:36→19:46)
[2018-03-01] MEDS: ALBUTEROL FS 2.5 MG/3 ML VIAL.NEB NEB SCH ×4 (01:36→19:46)
--- NOTE | 2018-03-01 08:07 | NUR ---
PT REC'D TRACHED ON [facility] VENT ON AC MODE. NO RESP DISTRESS OR SOB NOTED. SX'D FOR THIN MINIMAL AMT OF CLEAR SECRETIONS. TRACH PATENT AND SECURED. ALARMS ARE SET AND AUDIBLE, VENT PLUGGED INTO RED OUTLET, AMBU BAG BEDSIDE. WILL CONTINUE TO MONITOR. Addendum: 03/01/18 at 1642 by STELLA DALAL RT Amended: Links added.
[2018-03-01] MEDS: RANITIDINE GT SCH ×2 (09:00→21:04)
[2018-03-01] MEDS: POLYVINYL ALCOHOL 15 ML BOTTLE EACHEYE SCH ×4 (09:00→21:04)
[2018-03-01] MEDS: CLOTRIMAZOLE 1% 15 GM TUBE TP SCH ×2 (09:00→17:07)
[2018-03-01] MEDS: Z GUARD REMEDY 4 OZ OINT TP SCH ×2 (09:00→21:05)
[2018-03-01] MEDS: PROSOURCE / PROSTAT (PYXIS) 30 ML UDC JT SCH ×2 (09:00→17:06)
[2018-03-01] MEDS: LEVETIRACETAM SOL (5 ML) 100 MG/ML UDC GT SCH ×2 (09:00→21:04)
[2018-03-01] MEDS: COD LIVER OIL/ZINC OXIDE 120 GM TUBE TP SCH ×2 (09:00→17:06)
[2018-03-01] MEDS: HYDROGEN PEROXIDE 480 ML BOTTLE TP SCH ×2 (09:00→21:04)
[2018-03-01] MEDS: VITS A AND D/WHITE PET/LANOLIN 5 GM PACKET TP SCH ×2 (09:00→21:05)
[2018-03-01] MEDS: Z GUARD REMEDY 2 OZ OINT TP SCH ×2 (09:00→21:05)
--- NOTE | 2018-03-01 12:15 | NUR ---
sheltered workshop worker met with the resident's father and relative Maira to complete intake paperwork (patient rights acknowledgement, documentation of preferred intensity of care, conditions of admission, [place] Standard Admission Agreement, and voluntary prior express consent form). sheltered workshop worker educated the resident's father and relative on advanced healthcare directives/conservatorship. Resident's father states that he has not gotten conservatorship paperwork and will follow up with his supervisor logging. Father has received a letter indicating that he has been assigned the conservator of the resident but has not received letters of conservatorship from the court. Father noted he will follow up. Letter assigning father as conservator is placed in the chart and awaiting official letters of conservatorship. Resident's father wishes for the resident to remain Supportive Care Only with No CPR.
--- NOTE | 2018-03-01 13:00 | NUR ---
Dr. Cleveland gave order to D/C PICC line.
--- NOTE | 2018-03-01 15:00 | NUR ---
INTERDISCIPLINARY TEAM CONFERENCE (IDT) was held today. Resident's father was unable to attend today's IDT meeting. Dr. Cleveland and the interdisciplinary team reviewed the current plan of care in detail. Orders as well as treatment and medications were reviewed. Resident will be seen by Dr. Alvarado on 03/08/2018 around 10am for his annual eye exam. Resident has been tolerating his feedings well. Order was given to discontinue the resident's PICC line.
--- NOTE | 2018-03-01 18:00 | NUR ---
Resident refused to discontinue PICC line X 3. He was crying and he said he will have it done later. Pls try to ask him again.
--- NOTE | 2018-03-01 18:29 | NUR ---
Seen by XAVI Mike, no new order made.
[2018-03-01 19:41] VITALS: BP 103/85
--- NOTE | 2018-03-01 19:48 | NUR ---
Received male wade pt on a mechanical vent. Pt wade is secure. Vent is plugged into a red outlet, alarms are set and audible, and BMV is at bedside. Addendum: 03/01/18 at 1948 by ANGELO RIZVI RT Amended: Links added.
[2018-03-01] MEDS: POLYETHYLENE GLYCOL 3350 17 GM POWD.PACK GT SCH (21:05)
[2018-03-02] MEDS: ALBUTEROL FS 2.5 MG/3 ML VIAL.NEB NEB SCH ×4 (01:49→19:39)
[2018-03-02] MEDS: IPRATROPIUM NEB FS 0.5 MG/2.5 ML AMPUL.NEB NEB SCH ×4 (01:49→19:39)
[2018-03-02] MEDS: ERYTHROMYCIN STEARATE 250 MG TABLET GT SCH ×4 (05:35→23:34)
[2018-03-02] MEDS: Z GUARD REMEDY 4 OZ OINT TP SCH ×2 (09:00→20:03)
[2018-03-02] MEDS: LEVETIRACETAM SOL (5 ML) 100 MG/ML UDC GT SCH ×2 (09:00→20:03)
[2018-03-02] MEDS: COD LIVER OIL/ZINC OXIDE 120 GM TUBE TP SCH ×2 (09:00→17:05)
[2018-03-02] MEDS: PROSOURCE / PROSTAT (PYXIS) 30 ML UDC JT SCH ×2 (09:00→17:05)
[2018-03-02] MEDS: Z GUARD REMEDY 2 OZ OINT TP SCH ×2 (09:00→20:03)
[2018-03-02] MEDS: CLOTRIMAZOLE 1% 15 GM TUBE TP SCH ×2 (09:00→17:05)
[2018-03-02] MEDS: HYDROGEN PEROXIDE 480 ML BOTTLE TP SCH ×2 (09:00→20:03)
[2018-03-02] MEDS: VITS A AND D/WHITE PET/LANOLIN 5 GM PACKET TP SCH ×2 (09:00→20:04)
[2018-03-02] MEDS: RANITIDINE GT SCH ×2 (09:00→20:03)
[2018-03-02] MEDS: POLYVINYL ALCOHOL 15 ML BOTTLE EACHEYE SCH ×4 (10:00→20:03)
--- NOTE | 2018-03-02 19:39 | NUR ---
RT NOTE RECEIVED TRACH PT ON MECHANICAL VENTILATION ON NOTED SETTINGS PER MD ORDERS. AMBU BAG @ BEDSIDE. Q6 BREATHING TX GIVEN WITH NO ADVERSE REACTIONS NOTED. SX DONE PRN. ALARMS ON AND AUDIBLE. NO RESP DISTRESS AT THIS TIME. WILL CONT TO MONITOR PT. Addendum: 03/02/18 at 2129 by CIRILO LOZOYA RT Amended: Links added.
[2018-03-02 19:44] VITALS: BP 105/67
[2018-03-02] MEDS: JEVITY 1.2 CAL 1,000 ML BOTTLE GT PRN (20:24)
[2018-03-02] MEDS: POLYETHYLENE GLYCOL 3350 17 GM POWD.PACK GT SCH (21:56)
[2018-03-03] MEDS: ALBUTEROL FS 2.5 MG/3 ML VIAL.NEB NEB SCH ×4 (00:52→19:31)
[2018-03-03] MEDS: IPRATROPIUM NEB FS 0.5 MG/2.5 ML AMPUL.NEB NEB SCH ×4 (00:52→19:31)
[2018-03-03] MEDS: ERYTHROMYCIN STEARATE 250 MG TABLET GT SCH ×4 (05:37→23:46)
--- NOTE | 2018-03-03 07:33 | NUR ---
PT REC'D TRACHED ON [facility] VENT ON AC MODE. NO RESP DISTRESS OR SOB NOTED. SX'D FOR THIN MINIMAL AMT OF CLEAR SECRETIONS. TRACH PATENT AND SECURED. ALARMS ARE SET AND AUDIBLE, VENT PLUGGED INTO RED OUTLET, AMBU BAG BEDSIDE. WILL CONTINUE TO MONITOR. Addendum: 03/03/18 at 1720 by JOSE SALDAÑA RT Amended: Links added.
[2018-03-03] MEDS: Z GUARD REMEDY 2 OZ OINT TP SCH ×2 (09:00→21:16)
[2018-03-03] MEDS: POLYVINYL ALCOHOL 15 ML BOTTLE EACHEYE SCH ×4 (09:00→21:16)
[2018-03-03] MEDS: PROSOURCE / PROSTAT (PYXIS) 30 ML UDC JT SCH ×2 (09:00→17:34)
[2018-03-03] MEDS: VITS A AND D/WHITE PET/LANOLIN 5 GM PACKET TP SCH ×2 (09:00→21:16)
[2018-03-03] MEDS: HYDROGEN PEROXIDE 480 ML BOTTLE TP SCH ×2 (09:00→21:16)
[2018-03-03] MEDS: Z GUARD REMEDY 4 OZ OINT TP SCH ×2 (09:00→21:16)
[2018-03-03] MEDS: LEVETIRACETAM SOL (5 ML) 100 MG/ML UDC GT SCH ×2 (09:00→21:16)
[2018-03-03] MEDS: COD LIVER OIL/ZINC OXIDE 120 GM TUBE TP SCH ×2 (09:00→17:35)
[2018-03-03] MEDS: CLOTRIMAZOLE 1% 15 GM TUBE TP SCH ×2 (09:00→17:35)
[2018-03-03] MEDS: RANITIDINE GT SCH ×2 (09:00→21:16)
[2018-03-03 18:58] VITALS: BP 105/68
--- NOTE | 2018-03-03 19:31 | NUR ---
RT NOTE: RECEIVED TRACH PT ON [facility] VENT ON NOTED SETTINGS PER MD ORDERS. TRACH IS PATENT AND SECURED. GREEN HOUSE MANAGER DONE. AMBU BAG @ BEDSIDE. Q6 BREATHING TX GIVEN WITH NO ADVERSE REACTION NOTED. SX DONE PRN. ALARMS ON AND AUDIBLE. NO RESP DISTRESS AT THIS TIME. WILL CONT TO MONITOR PT. Addendum: 03/04/18 at 0550 by CIRILO LOZOYA RT Amended: Links added.
[2018-03-03] MEDS: POLYETHYLENE GLYCOL 3350 17 GM POWD.PACK GT SCH (21:16)
[2018-03-04] MEDS: ALBUTEROL FS 2.5 MG/3 ML VIAL.NEB NEB SCH ×4 (01:44→19:26)
[2018-03-04] MEDS: IPRATROPIUM NEB FS 0.5 MG/2.5 ML AMPUL.NEB NEB SCH ×4 (01:44→19:26)
[2018-03-04] MEDS: ERYTHROMYCIN STEARATE 250 MG TABLET GT SCH ×4 (05:51→23:54)
[2018-03-04 07:48] VITALS: BP 102/58
[2018-03-04] MEDS: HYDROGEN PEROXIDE 480 ML BOTTLE TP SCH ×2 (09:00→21:05)
[2018-03-04] MEDS: Z GUARD REMEDY 2 OZ OINT TP SCH ×2 (09:00→21:05)
[2018-03-04] MEDS: RANITIDINE GT SCH ×2 (09:00→21:04)
[2018-03-04] MEDS: VITS A AND D/WHITE PET/LANOLIN 5 GM PACKET TP SCH ×2 (09:00→21:05)
[2018-03-04] MEDS: POLYVINYL ALCOHOL 15 ML BOTTLE EACHEYE SCH ×4 (09:00→21:04)
[2018-03-04] MEDS: LEVETIRACETAM SOL (5 ML) 100 MG/ML UDC GT SCH ×2 (09:00→21:04)
[2018-03-04] MEDS: COD LIVER OIL/ZINC OXIDE 120 GM TUBE TP SCH ×2 (09:00→16:39)
[2018-03-04] MEDS: PROSOURCE / PROSTAT (PYXIS) 30 ML UDC JT SCH ×2 (09:00→16:39)
[2018-03-04] MEDS: Z GUARD REMEDY 4 OZ OINT TP SCH ×2 (09:00→21:05)
[2018-03-04] MEDS: CLOTRIMAZOLE 1% 15 GM TUBE TP SCH ×2 (09:00→16:39)
--- NOTE | 2018-03-04 15:34 | NUR ---
RT PATIENT RECEIVED TRACHED ON MECHANICAL VENTILATION ON SETTINGS ORDERED. AMBU BAG/BACK UP TRACH AT BEDSIDE. TX GIVEN, NO ADVERSE REACTIONS NOTED. SX DONE, SMALL THICK WHITE SECRETIONS NOTED. ALARMS ON AND AUDIBLE. VENT PLUGGED IN RED OUTLET, PATIENT STABLE. WILL CONTINUE MONITOR.
[2018-03-04] MEDS: JEVITY 1.2 CAL 1,000 ML BOTTLE GT PRN (17:50)
[2018-03-04 20:32] VITALS: BP 117/71
[2018-03-04] MEDS: POLYETHYLENE GLYCOL 3350 17 GM POWD.PACK GT SCH (21:05)
--- NOTE | 2018-03-04 22:02 | NUR ---
RT PATIENT RECEIVED TRACHED ON MECHANICAL VENTILATION ON SETTINGS ORDERED. AMBU BAG/BACK UP TRACH AT BEDSIDE. TX GIVEN, NO ADVERSE REACTIONS NOTED. SX DONE, MODERATE THICK WHITE SECRETIONS NOTED. ALARMS ON AND AUDIBLE. VENT PLUGGED IN RED OUTLET, PATIENT STABLE. WILL CONTINUE MONITOR. Addendum: 03/04/18 at 2202 by MASOOD POLK RT Amended: Links added.
[2018-03-05] MEDS: IPRATROPIUM NEB FS 0.5 MG/2.5 ML AMPUL.NEB NEB SCH ×4 (00:59→19:31)
[2018-03-05] MEDS: ALBUTEROL FS 2.5 MG/3 ML VIAL.NEB NEB SCH ×4 (00:59→19:31)
[2018-03-05] MEDS: ERYTHROMYCIN STEARATE 250 MG TABLET GT SCH ×3 (06:02→18:18)
--- NOTE | 2018-03-05 07:33 | NUR ---
RT NOTE PT RECEIVED ON [facility] VENT ON THE FOLLOWING NOTED SETTINGS. NO RESP DISTRESS OR SOB NOTED AT THIS TIME. PT SUCTIONED: LARGE THIN WHITE SECRETIONS. BREATHING TX GIVEN, NO ADVERSE REACTIONS NOTED. VENT IS PLUGGED INTO RED OUTLET. VENT ALARMS ARE ON AND AUDIBLE. SPARE TRACH AND AMBU BAG ARE AT BEDSIDE. WILL CONT TO MONITOR. Addendum: 03/05/18 at 0722 by CHANCE MULLINS RT Amended: Links added.
[2018-03-05 07:42] LABS: BASOPHILS % (AUTO) 0.6 % (0.0-2.0); EOSINOPHILS % (AUTO) 2.7 % (0.0-6.0); HEMATOCRIT 38 % (39-51); HEMOGLOBIN 11.7 g/dL (13.5-17.5); LYMPHOCYTES # (AUTO) 3.2 /CMM (0.8-4.8); LYMPHOCYTES % (AUTO) 41.2 % (20.0-44.0); MEAN CORPUSCULAR HGB CONC 31 g/dl (31.0-36.0); MEAN CORPUSCULAR VOLUME 89 fL (80-96); MONOCYTES # (AUTO) 0.7 /CMM (0.1-1.30); MONOCYTES % (AUTO) 9.3 % (2.0-12.0); NEUTROPHILS # (AUTO) 3.6 /CMM (1.8-8.9); NEUTROPHILS % (AUTO) 46.2 % (43.0-81.0); PLATELET COUNT (AUTO) 205 /CMM (150-450); RED BLOOD CELL COUNT(AUTO) 4.29 MIL/uL (4.5-6.0); WHITE BLOOD COUNT (AUTO) 7.9 K/uL (4.3-11.0)
[2018-03-05 08:15] LABS: ALBUMIN 3.2 g/dL (3.4-5.0); BILIRUBIN,TOTAL 0.4 mg/dL (0.2-1.0); CALCIUM, SERUM 9.9 mg/dL (8.5-10.1); CREATININE 0.4 mg/dL (0.6-1.3); POTASSIUM 5.2 mmol/L (3.5-5.1); TOTAL PROTEIN, SERUM 8.6 g/dL (6.4-8.2)
[2018-03-05] MEDS: HYDROGEN PEROXIDE 480 ML BOTTLE TP SCH ×2 (09:00→20:26)
[2018-03-05] MEDS: CLOTRIMAZOLE 1% 15 GM TUBE TP SCH ×2 (09:00→17:04)
[2018-03-05] MEDS: Z GUARD REMEDY 4 OZ OINT TP SCH ×2 (09:00→20:26)
[2018-03-05] MEDS: PROSOURCE / PROSTAT (PYXIS) 30 ML UDC JT SCH ×2 (09:00→17:03)
[2018-03-05] MEDS: LEVETIRACETAM SOL (5 ML) 100 MG/ML UDC GT SCH ×2 (09:00→20:26)
[2018-03-05] MEDS: POLYVINYL ALCOHOL 15 ML BOTTLE EACHEYE SCH ×4 (09:00→20:26)
[2018-03-05] MEDS: Z GUARD REMEDY 2 OZ OINT TP SCH ×2 (09:00→20:26)
[2018-03-05] MEDS: VITS A AND D/WHITE PET/LANOLIN 5 GM PACKET TP SCH ×2 (09:00→20:26)
[2018-03-05] MEDS: RANITIDINE GT SCH ×2 (09:00→20:26)
[2018-03-05] MEDS: COD LIVER OIL/ZINC OXIDE 120 GM TUBE TP SCH ×2 (09:00→17:03)
--- NOTE | 2018-03-05 09:30 | NUR ---
Seen by Dr. Cleveland. Relayed lab results to him. K 5.2. No new order.
[2018-03-05 10:47] VITALS: BP 100/58
--- NOTE | 2018-03-05 19:34 | NUR ---
RT PATIENT RECEIVED TRACHED ON MECHANICAL VENTILATION ON SETTINGS ORDERED. AMBU BAG/BACK UP TRACH AT BEDSIDE. TX GIVEN, NO ADVERSE REACTIONS NOTED. SX DONE, MODERATE THICK WHITE SECRETIONS NOTED. ALARMS ON AND AUDIBLE. VENT PLUGGED IN RED OUTLET, PATIENT STABLE. WILL CONTINUE MONITOR. Addendum: 03/05/18 at 1934 by MASOOD POLK RT Amended: Links added.
[2018-03-05 20:13] VITALS: BP 100/61
[2018-03-05] MEDS: POLYETHYLENE GLYCOL 3350 17 GM POWD.PACK GT SCH (21:06)
[2018-03-06] MEDS: ERYTHROMYCIN STEARATE 250 MG TABLET GT SCH ×4 (00:21→18:09)
[2018-03-06] MEDS: ALBUTEROL FS 2.5 MG/3 ML VIAL.NEB NEB SCH ×4 (01:12→19:30)
[2018-03-06] MEDS: IPRATROPIUM NEB FS 0.5 MG/2.5 ML AMPUL.NEB NEB SCH ×4 (01:12→19:30)
[2018-03-06 07:48] VITALS: BP 104/59
--- NOTE | 2018-03-06 08:40 | NUR ---
RT PATIENT RECEIVED TRACHED ON MECHANICAL VENTILATION ON SETTINGS ORDERED. AMBU BAG/BACK UP TRACH AT BEDSIDE. TX GIVEN, NO ADVERSE REACTIONS NOTED. SX DONE, SMALL THIN WHITE SECRETIONS NOTED. ALARMS ON AND AUDIBLE. VENT PLUGGED IN RED OUTLET, PATIENT STABLE. WILL CONTINUE MONITOR. Addendum: 03/06/18 at 0841 by KYM DUEÑAS RT Amended: Links added.
[2018-03-06] MEDS: PROSOURCE / PROSTAT (PYXIS) 30 ML UDC JT SCH ×2 (09:00→16:45)
[2018-03-06] MEDS: HYDROGEN PEROXIDE 480 ML BOTTLE TP SCH ×2 (09:00→21:42)
[2018-03-06] MEDS: Z GUARD REMEDY 2 OZ OINT TP SCH ×2 (09:00→21:42)
[2018-03-06] MEDS: CLOTRIMAZOLE 1% 15 GM TUBE TP SCH ×2 (09:00→16:46)
[2018-03-06] MEDS: LEVETIRACETAM SOL (5 ML) 100 MG/ML UDC GT SCH ×2 (09:00→21:42)
[2018-03-06] MEDS: COD LIVER OIL/ZINC OXIDE 120 GM TUBE TP SCH ×2 (09:00→16:46)
[2018-03-06] MEDS: Z GUARD REMEDY 4 OZ OINT TP SCH ×2 (09:00→21:42)
[2018-03-06] MEDS: VITS A AND D/WHITE PET/LANOLIN 5 GM PACKET TP SCH ×2 (09:00→21:42)
[2018-03-06] MEDS: POLYVINYL ALCOHOL 15 ML BOTTLE EACHEYE SCH ×4 (09:59→21:41)
[2018-03-06] MEDS: RANITIDINE GT SCH ×2 (10:00→21:42)
[2018-03-06] MEDS: JEVITY 1.2 CAL 1,000 ML BOTTLE GT PRN (18:09)
[2018-03-06 19:53] VITALS: BP 98/64
[2018-03-06] MEDS: POLYETHYLENE GLYCOL 3350 17 GM POWD.PACK GT SCH (21:42)
[2018-03-07] MEDS: ERYTHROMYCIN STEARATE 250 MG TABLET GT SCH ×5 (00:38→23:46)
[2018-03-07] MEDS: IPRATROPIUM NEB FS 0.5 MG/2.5 ML AMPUL.NEB NEB SCH ×4 (01:53→20:09)
[2018-03-07] MEDS: ALBUTEROL FS 2.5 MG/3 ML VIAL.NEB NEB SCH ×4 (01:53→20:09)
--- NOTE | 2018-03-07 05:45 | NUR ---
RT PT RECEIVED TRACHED ON [facility] VENT WITH NOTED SETTING. VENT ALARMS SET AND AUDIBLE. VENT TO RED OUTLET. AMBU BAG AT [facility]. TRACH PATENT AND SECURE VIA TRACH TIES. POULTRY SERVICE TECHNICIAN NOTED. PT TOLERATING VENT SETTING WELL, NO SOB OR DISTRESS NOTED. Addendum: 03/07/18 at 0547 by KOSTAS PITTMAN RT Amended: Links added.
[2018-03-07 07:53] VITALS: BP 120/69
--- NOTE | 2018-03-07 07:57 | NUR ---
Male wade pt received on a mechanical vent. Pt wade is secure. Vent is plugged into a red outlet, alarms are set and audible, and BMV is at bedside. Addendum: 03/07/18 at 0758 by ANGELO RIZVI RT Amended: Links added.
[2018-03-07] MEDS: CLOTRIMAZOLE 1% 15 GM TUBE TP SCH ×2 (09:07→17:22)
[2018-03-07] MEDS: RANITIDINE GT SCH ×2 (09:07→21:23)
[2018-03-07] MEDS: POLYVINYL ALCOHOL 15 ML BOTTLE EACHEYE SCH ×4 (09:07→21:22)
[2018-03-07] MEDS: PROSOURCE / PROSTAT (PYXIS) 30 ML UDC JT SCH ×2 (09:07→17:21)
[2018-03-07] MEDS: COD LIVER OIL/ZINC OXIDE 120 GM TUBE TP SCH ×2 (09:07→17:22)
[2018-03-07] MEDS: HYDROGEN PEROXIDE 480 ML BOTTLE TP SCH ×2 (09:07→21:23)
[2018-03-07] MEDS: LEVETIRACETAM SOL (5 ML) 100 MG/ML UDC GT SCH ×2 (09:07→21:23)
[2018-03-07] MEDS: VITS A AND D/WHITE PET/LANOLIN 5 GM PACKET TP SCH ×2 (09:08→21:23)
[2018-03-07] MEDS: Z GUARD REMEDY 4 OZ OINT TP SCH ×2 (09:08→21:23)
[2018-03-07] MEDS: Z GUARD REMEDY 2 OZ OINT TP SCH ×2 (09:08→21:23)
[2018-03-07] MEDS: JEVITY 1.2 CAL 1,000 ML BOTTLE GT PRN (17:23)
[2018-03-07 20:16] VITALS: BP 135/70
[2018-03-07] MEDS: POLYETHYLENE GLYCOL 3350 17 GM POWD.PACK GT SCH (21:23)
[2018-03-08] MEDS: IPRATROPIUM NEB FS 0.5 MG/2.5 ML AMPUL.NEB NEB SCH ×4 (02:01→19:43)
[2018-03-08] MEDS: ALBUTEROL FS 2.5 MG/3 ML VIAL.NEB NEB SCH ×4 (02:01→19:43)
[2018-03-08] MEDS: ERYTHROMYCIN STEARATE 250 MG TABLET GT SCH ×3 (05:55→17:13)
--- NOTE | 2018-03-08 06:09 | NUR ---
RT PT RECEIVED TRACHED ON [facility] VENT WITH NOTED SETTING. VENT ALARMS SET AND AUDIBLE. VENT TO RED OUTLET. AMBU BAG AT [facility]. TRACH PATENT AND SECURE VIA TRACH TIES. CORN CHIP MAKER NOTED. PT TOLERATING VENT SETTING WELL, NO SOB OR DISTRESS NOTED. Addendum: 03/08/18 at 0609 by KOSTAS PITTMAN RT Amended: Links added.
[2018-03-08 07:37] VITALS: BP 100/64
[2018-03-08] MEDS: HYDROGEN PEROXIDE 480 ML BOTTLE TP SCH ×2 (08:57→21:01)
[2018-03-08] MEDS: PROSOURCE / PROSTAT (PYXIS) 30 ML UDC JT SCH ×2 (08:57→17:11)
[2018-03-08] MEDS: COD LIVER OIL/ZINC OXIDE 120 GM TUBE TP SCH ×2 (08:57→17:11)
[2018-03-08] MEDS: LEVETIRACETAM SOL (5 ML) 100 MG/ML UDC GT SCH ×2 (08:57→21:01)
[2018-03-08] MEDS: POLYVINYL ALCOHOL 15 ML BOTTLE EACHEYE SCH ×4 (08:57→21:01)
[2018-03-08] MEDS: RANITIDINE GT SCH ×2 (08:57→21:01)
[2018-03-08] MEDS: Z GUARD REMEDY 4 OZ OINT TP SCH ×2 (08:58→21:02)
[2018-03-08] MEDS: Z GUARD REMEDY 2 OZ OINT TP SCH ×2 (08:58→21:02)
[2018-03-08] MEDS: CLOTRIMAZOLE 1% 15 GM TUBE TP SCH ×2 (08:58→17:13)
[2018-03-08] MEDS: VITS A AND D/WHITE PET/LANOLIN 5 GM PACKET TP SCH ×2 (08:58→21:02)
--- NOTE | 2018-03-08 11:17 | NUR ---
The resident was seen by Dr. Alvarado (radiology tech) for initial optometry visit and will be followed up on a yearly basis.
[2018-03-08] MEDS: JEVITY 1.2 CAL 1,000 ML BOTTLE GT PRN (15:11)
[2018-03-08 19:57] VITALS: BP 107/69
--- NOTE | 2018-03-08 20:04 | NUR ---
Patient received on mechanical ventilation with settings of AC 14, 450 Vt, 40%, +0. Suctioned for minimal, thin, yellow secretions. Given in-line treatments with no adverse reactions. Ambu bag at bedside. Vent alarm audible and visible. Vent plugged into red outlet. Addendum: 03/08/18 at 2006 by MALLY NGUYEN RT Amended: Links added.
[2018-03-08] MEDS: POLYETHYLENE GLYCOL 3350 17 GM POWD.PACK GT SCH (21:02)
[2018-03-09] MEDS: ERYTHROMYCIN STEARATE 250 MG TABLET GT SCH ×5 (00:09→23:25)
[2018-03-09] MEDS: ALBUTEROL FS 2.5 MG/3 ML VIAL.NEB NEB SCH ×4 (02:23→20:00)
[2018-03-09] MEDS: IPRATROPIUM NEB FS 0.5 MG/2.5 ML AMPUL.NEB NEB SCH ×4 (02:23→20:00)
[2018-03-09 07:57] VITALS: BP 92/56
[2018-03-09] MEDS: POLYVINYL ALCOHOL 15 ML BOTTLE EACHEYE SCH ×4 (08:16→20:32)
[2018-03-09] MEDS: PROSOURCE / PROSTAT (PYXIS) 30 ML UDC JT SCH ×2 (08:16→16:53)
[2018-03-09] MEDS: RANITIDINE GT SCH ×2 (08:16→20:32)
[2018-03-09] MEDS: LEVETIRACETAM SOL (5 ML) 100 MG/ML UDC GT SCH ×2 (08:16→20:33)
[2018-03-09] MEDS: Z GUARD REMEDY 2 OZ OINT TP SCH ×2 (09:00→20:33)
[2018-03-09] MEDS: Z GUARD REMEDY 4 OZ OINT TP SCH ×2 (09:00→20:33)
[2018-03-09] MEDS: VITS A AND D/WHITE PET/LANOLIN 5 GM PACKET TP SCH ×2 (09:00→20:33)
[2018-03-09] MEDS: CLOTRIMAZOLE 1% 15 GM TUBE TP SCH ×2 (09:00→16:53)
[2018-03-09] MEDS: COD LIVER OIL/ZINC OXIDE 120 GM TUBE TP SCH ×2 (09:00→16:53)
[2018-03-09] MEDS: HYDROGEN PEROXIDE 480 ML BOTTLE TP SCH ×2 (09:00→20:33)
[2018-03-09] MEDS: JEVITY 1.2 CAL 1,000 ML BOTTLE GT PRN (15:03)
[2018-03-09 19:55] VITALS: BP 108/65
--- NOTE | 2018-03-09 20:00 | NUR ---
RT Pt received trach'd and on [facility] vent w charted settings. Vent is plugged into red outlet. Alarms are on and audible w yi @ [employer]. Trach is secure and patent. Member Services Representative done. Hhn tx given and pt sx'd w no adverse reactions. No respiratory distress noted at this time. Will continue to monitor. Addendum: 03/09/18 at 2101 by HUGH LICONA RT Amended: Links added.
[2018-03-09] MEDS: POLYETHYLENE GLYCOL 3350 17 GM POWD.PACK GT SCH (21:00)
[2018-03-10] MEDS: ALBUTEROL FS 2.5 MG/3 ML VIAL.NEB NEB SCH ×4 (02:10→19:50)
[2018-03-10] MEDS: IPRATROPIUM NEB FS 0.5 MG/2.5 ML AMPUL.NEB NEB SCH ×4 (02:10→19:50)
[2018-03-10] MEDS: ERYTHROMYCIN STEARATE 250 MG TABLET GT SCH ×4 (05:09→23:52)
[2018-03-10 07:44] VITALS: BP 113/63
--- NOTE | 2018-03-10 08:21 | NUR ---
RT PT REC'D TRACHED ON VENT SETTINGS CHARTED, PT AWAKE, ALERT, AND RESPONSIVE TO PAIN, NO SOB, NO RESPIRATORY DISTRESS NOTED AT THIS TIME, TRACH TUBE PATENT, SECURE, IN PLACE, AMBU BAG @ HOB, VENT ALARMS ON AND AUDIBLE, PT SUCTIONED W MODERATE AMOUNT OF THIN WHITE SECRETIONS, TX GIVEN WITH NO ADVERSE REACTION, WILL CONTINUE TO MONITOR. Addendum: 03/10/18 at 0822 by KYM DUEÑAS RT Amended: Links added.
[2018-03-10] MEDS: VITS A AND D/WHITE PET/LANOLIN 5 GM PACKET TP SCH ×2 (09:00→21:39)
[2018-03-10] MEDS: HYDROGEN PEROXIDE 480 ML BOTTLE TP SCH ×2 (09:00→21:38)
[2018-03-10] MEDS: Z GUARD REMEDY 2 OZ OINT TP SCH ×2 (09:00→21:39)
[2018-03-10] MEDS: LEVETIRACETAM SOL (5 ML) 100 MG/ML UDC GT SCH ×2 (09:00→21:38)
[2018-03-10] MEDS: POLYVINYL ALCOHOL 15 ML BOTTLE EACHEYE SCH ×4 (09:00→21:38)
[2018-03-10] MEDS: PROSOURCE / PROSTAT (PYXIS) 30 ML UDC JT SCH ×2 (09:00→16:37)
[2018-03-10] MEDS: COD LIVER OIL/ZINC OXIDE 120 GM TUBE TP SCH ×2 (09:00→16:37)
[2018-03-10] MEDS: RANITIDINE GT SCH ×2 (09:00→21:38)
[2018-03-10] MEDS: CLOTRIMAZOLE 1% 15 GM TUBE TP SCH ×2 (09:00→16:37)
[2018-03-10] MEDS: JEVITY 1.2 CAL 1,000 ML BOTTLE GT PRN (16:09)
[2018-03-10 19:50] VITALS: BP 108/69
[2018-03-10] MEDS: POLYETHYLENE GLYCOL 3350 17 GM POWD.PACK GT SCH (21:39)
[2018-03-11] MEDS: ALBUTEROL FS 2.5 MG/3 ML VIAL.NEB NEB SCH ×4 (00:43→18:46)
[2018-03-11] MEDS: IPRATROPIUM NEB FS 0.5 MG/2.5 ML AMPUL.NEB NEB SCH ×4 (00:43→18:46)
[2018-03-11] MEDS: ERYTHROMYCIN STEARATE 250 MG TABLET GT SCH ×4 (05:10→23:46)
[2018-03-11 08:09] VITALS: BP 106/51
[2018-03-11] MEDS: RANITIDINE GT SCH ×2 (09:00→21:06)
[2018-03-11] MEDS: POLYVINYL ALCOHOL 15 ML BOTTLE EACHEYE SCH ×4 (09:00→21:06)
[2018-03-11] MEDS: LEVETIRACETAM SOL (5 ML) 100 MG/ML UDC GT SCH ×2 (09:00→21:06)
[2018-03-11] MEDS: PROSOURCE / PROSTAT (PYXIS) 30 ML UDC JT SCH ×2 (09:00→16:27)
[2018-03-11] MEDS: CLOTRIMAZOLE 1% 15 GM TUBE TP SCH ×2 (09:00→16:27)
[2018-03-11] MEDS: VITS A AND D/WHITE PET/LANOLIN 5 GM PACKET TP SCH ×2 (09:00→21:06)
[2018-03-11] MEDS: HYDROGEN PEROXIDE 480 ML BOTTLE TP SCH ×2 (09:00→21:06)
[2018-03-11] MEDS: Z GUARD REMEDY 2 OZ OINT TP SCH ×2 (09:00→21:06)
[2018-03-11] MEDS: COD LIVER OIL/ZINC OXIDE 120 GM TUBE TP SCH ×2 (09:00→16:27)
--- NOTE | 2018-03-11 12:33 | NUR ---
RT RECD PT TRACHED INTACT & SECURED ON MECH VENT BRAULIO ORDERED SETTINGS ALARMS ON AND AUDIBLE BAG AND MASK AT HOB VENT PLUGGED IN THE RED OUTLET. SX THIN YELLOW MOD SECRETIONS TXS GIVEN NO ADVERSE REACTION NOTED ATT NO RESP DISTRESS NOTED ATT WILL CONT TO MONITOR
[2018-03-11] MEDS: JEVITY 1.2 CAL 1,000 ML BOTTLE GT PRN (16:28)
[2018-03-11 19:56] VITALS: BP 139/75
[2018-03-11] MEDS: POLYETHYLENE GLYCOL 3350 17 GM POWD.PACK GT SCH (21:06)
[2018-03-11 21:07] VITALS: BP 139/75
--- NOTE | 2018-03-12 00:10 | NUR ---
PT REC'D TRACHED ON VENT SETTINGS CHARTED, PT AWAKE AND RESPONSIVE TO PAIN, NO SOB, NO RESPIRATORY DISTRESS NOTED AT THIS TIME, TRACH TUBE PATENT, SECURE, IN PLACE, AMBU BAG @ HOB, VENT ALARMS ON AND AUDIBLE, PT SUCTIONED W SMALL AMOUNT OF THICK PALE YELLOW SECRETIONS, TX GIVEN WITH NO ADVERSE REACTION, WILL CONTINUE TO MONITOR. Addendum: 03/12/18 at 0011 by MASOOD POLK RT Amended: Links added.
[2018-03-12] MEDS: ALBUTEROL FS 2.5 MG/3 ML VIAL.NEB NEB SCH ×4 (01:37→19:06)
[2018-03-12] MEDS: IPRATROPIUM NEB FS 0.5 MG/2.5 ML AMPUL.NEB NEB SCH ×4 (01:37→19:06)
[2018-03-12] MEDS: ERYTHROMYCIN STEARATE 250 MG TABLET GT SCH ×4 (05:54→23:11)
[2018-03-12 07:34] VITALS: BP 98/63
[2018-03-12] MEDS: LEVETIRACETAM SOL (5 ML) 100 MG/ML UDC GT SCH ×2 (09:00→21:12)
[2018-03-12] MEDS: HYDROGEN PEROXIDE 480 ML BOTTLE TP SCH ×2 (09:00→21:12)
[2018-03-12] MEDS: Z GUARD REMEDY 2 OZ OINT TP SCH ×2 (09:00→21:13)
[2018-03-12] MEDS: VITS A AND D/WHITE PET/LANOLIN 5 GM PACKET TP SCH ×2 (09:00→21:13)
[2018-03-12] MEDS: PROSOURCE / PROSTAT (PYXIS) 30 ML UDC JT SCH ×2 (09:00→17:03)
[2018-03-12] MEDS: COD LIVER OIL/ZINC OXIDE 120 GM TUBE TP SCH ×2 (09:00→17:03)
[2018-03-12] MEDS: CLOTRIMAZOLE 1% 15 GM TUBE TP SCH ×2 (09:00→17:03)
[2018-03-12] MEDS: POLYVINYL ALCOHOL 15 ML BOTTLE EACHEYE SCH ×4 (09:00→21:12)
[2018-03-12] MEDS: RANITIDINE GT SCH ×2 (09:00→21:12)
--- NOTE | 2018-03-12 19:12 | NUR ---
PT REC'D TRACHED ON VENT SETTINGS CHARTED, PT RESPONSIVE TO PAIN, NO SOB, NO RESPIRATORY DISTRESS NOTED AT THIS TIME, TRACH TUBE PATENT, SECURE, IN PLACE, AMBU BAG @ HOB, VENT ALARMS ON AND AUDIBLE, PT SUCTIONED W SMALL AMOUNT OF THICK PALE YELLOW SECRETIONS, TX GIVEN WITH NO ADVERSE REACTION, WILL CONTINUE TO MONITOR. Addendum: 03/12/18 at 1911 by MASOOD POLK RT Amended: Links added.
[2018-03-12 20:33] VITALS: BP 114/81
[2018-03-12] MEDS: POLYETHYLENE GLYCOL 3350 17 GM POWD.PACK GT SCH (21:13)
[2018-03-13] MEDS: IPRATROPIUM NEB FS 0.5 MG/2.5 ML AMPUL.NEB NEB SCH ×4 (01:15→19:35)
[2018-03-13] MEDS: ALBUTEROL FS 2.5 MG/3 ML VIAL.NEB NEB SCH ×4 (01:15→19:35)
[2018-03-13] MEDS: ERYTHROMYCIN STEARATE 250 MG TABLET GT SCH ×4 (05:38→23:32)
[2018-03-13 06:47] LABS: BASOPHILS # (AUTO) 0.1 /CMM (0.0-0.2); EOSINOPHILS % (AUTO) 3.6 % (0.0-6.0); HEMATOCRIT 40 % (39-51); HEMOGLOBIN 12.7 g/dL (13.5-17.5); MEAN CORPUSCULAR HGB CONC 32 g/dl (31.0-36.0); MEAN CORPUSCULAR VOLUME 87 fL (80-96); MONOCYTES # (AUTO) 0.7 /CMM (0.1-1.30); MONOCYTES % (AUTO) 8.7 % (2.0-12.0); NEUTROPHILS % (AUTO) 49.7 % (43.0-81.0); PLATELET COUNT (AUTO) 268 /CMM (150-450); RED BLOOD CELL COUNT(AUTO) 4.56 MIL/uL (4.5-6.0); WHITE BLOOD COUNT (AUTO) 8.1 K/uL (4.3-11.0)
--- NOTE | 2018-03-13 07:36 | NUR ---
PT RECD TRACHED ON [facility] VENT. NO RESP DISTRESS OR SOB NOTED. TRACH PATENT AND SECURED. SX'D FOR THICK MOD AMT OF PALE YELLOW SECRETIONS. ALARMS ARE SET AND AUDIBLE. VENT PLUGGED INTO RED OUTLET. AMBU BAG BEDSIDE. WILL CONTINUE TO MONITOR. Addendum: 03/13/18 at 0859 by STELLA DALAL RT Amended: Links added.
[2018-03-13 07:54] VITALS: BP 118/62
[2018-03-13] MEDS: POLYVINYL ALCOHOL 15 ML BOTTLE EACHEYE SCH ×4 (08:32→21:00)
[2018-03-13] MEDS: RANITIDINE GT SCH ×2 (08:33→21:00)
[2018-03-13] MEDS: PROSOURCE / PROSTAT (PYXIS) 30 ML UDC JT SCH ×2 (08:33→17:42)
[2018-03-13] MEDS: LEVETIRACETAM SOL (5 ML) 100 MG/ML UDC GT SCH ×2 (08:33→21:00)
[2018-03-13] MEDS: VITS A AND D/WHITE PET/LANOLIN 5 GM PACKET TP SCH ×2 (09:00→21:01)
[2018-03-13] MEDS: COD LIVER OIL/ZINC OXIDE 120 GM TUBE TP SCH ×2 (09:00→17:42)
[2018-03-13] MEDS: Z GUARD REMEDY 2 OZ OINT TP SCH ×2 (09:00→21:01)
[2018-03-13] MEDS: CLOTRIMAZOLE 1% 15 GM TUBE TP SCH ×2 (09:00→17:42)
[2018-03-13] MEDS: HYDROGEN PEROXIDE 480 ML BOTTLE TP SCH ×2 (09:00→21:00)
[2018-03-13] MEDS: JEVITY 1.2 CAL 1,000 ML BOTTLE GT PRN (17:42)
[2018-03-13 19:54] VITALS: BP 107/68
--- NOTE | 2018-03-13 20:08 | NUR ---
RT NOTE PT RECEIVED ON [facility] VENT ON THE FOLLOWING NOTED SETTINGS. NO RESP DISTRESS OR SOB NOTED. PT SUCTIONED: SMALL THIN WHITE SECRETIONS. BREATHING TX GIVEN, NO ADVERSE REACTIONS NOTED AT THIS TIME. VENT IS PLUGGED INTO RED OUTLET. ALARMS ARE ON AND AUDIBLE. AMBU BAG AND SPARE TRACH ARE AT BEDSIDE. WILL CONT TO MONITOR. Addendum: 03/13/18 at 2008 by CHANCE MULLINS RT Amended: Links added.
[2018-03-13] MEDS: POLYETHYLENE GLYCOL 3350 17 GM POWD.PACK GT SCH (21:01)
[2018-03-14] MEDS: ALBUTEROL FS 2.5 MG/3 ML VIAL.NEB NEB SCH ×4 (01:06→19:40)
[2018-03-14] MEDS: IPRATROPIUM NEB FS 0.5 MG/2.5 ML AMPUL.NEB NEB SCH ×4 (01:06→19:40)
[2018-03-14] MEDS: ERYTHROMYCIN STEARATE 250 MG TABLET GT SCH ×3 (05:05→17:48)
--- NOTE | 2018-03-14 07:48 | NUR ---
Male wade pt received on a mechanical vent. Pt receives Q6 breathing tx. Pt wade is secure. Vent is plugged into a red outlet, alarms are set and audible, and BMV is at bedside. Addendum: 03/14/18 at 0752 by ANGELO RIZVI RT Amended: Links added.
[2018-03-14] MEDS: LEVETIRACETAM SOL (5 ML) 100 MG/ML UDC GT SCH ×2 (08:43→20:54)
[2018-03-14] MEDS: POLYVINYL ALCOHOL 15 ML BOTTLE EACHEYE SCH ×4 (08:43→20:53)
[2018-03-14] MEDS: RANITIDINE GT SCH ×2 (08:43→20:53)
[2018-03-14] MEDS: PROSOURCE / PROSTAT (PYXIS) 30 ML UDC JT SCH ×2 (08:43→17:48)
[2018-03-14] MEDS: Z GUARD REMEDY 2 OZ OINT TP SCH ×2 (09:00→20:54)
[2018-03-14] MEDS: VITS A AND D/WHITE PET/LANOLIN 5 GM PACKET TP SCH ×2 (09:00→20:54)
[2018-03-14] MEDS: CLOTRIMAZOLE 1% 15 GM TUBE TP SCH ×2 (09:00→17:48)
[2018-03-14] MEDS: HYDROGEN PEROXIDE 480 ML BOTTLE TP SCH ×2 (09:00→20:54)
[2018-03-14] MEDS: COD LIVER OIL/ZINC OXIDE 120 GM TUBE TP SCH ×2 (09:00→17:48)
[2018-03-14 11:57] VITALS: BP 99/53
[2018-03-14] MEDS: JEVITY 1.2 CAL 1,000 ML BOTTLE GT PRN (18:27)
--- NOTE | 2018-03-14 19:40 | NUR ---
RT NOTE: RECEIVED TRACH PT ON [facility] VENT ON NOTED SETTINGS PER MD ORDERS. TRACH IS PATENT AND SECURED. MIDDLE SCHOOL DIRECTOR DONE. AMBU BAG @ BEDSIDE. Q6 BREATHING TX GIVEN WITH NO ADVERSE REACTION NOTED. SX DONE PRN. VENT PLUGGED INTO RED OUTLET. ALARMS ON AND AUDIBLE. NO RESP DISTRESS AT THIS TIME. WILL CONT TO MONITOR PT. Addendum: 03/15/18 at 0254 by CIRILO LOZOYA RT Amended: Links added.
[2018-03-14 19:46] VITALS: BP 123/75
[2018-03-14] MEDS: POLYETHYLENE GLYCOL 3350 17 GM POWD.PACK GT SCH (21:08)
[2018-03-15] MEDS: ERYTHROMYCIN STEARATE 250 MG TABLET GT SCH ×5 (00:05→23:38)
[2018-03-15] MEDS: IPRATROPIUM NEB FS 0.5 MG/2.5 ML AMPUL.NEB NEB SCH ×4 (01:41→19:30)
[2018-03-15] MEDS: ALBUTEROL FS 2.5 MG/3 ML VIAL.NEB NEB SCH ×4 (01:41→19:30)
[2018-03-15 07:42] VITALS: BP 114/72
[2018-03-15] MEDS: COD LIVER OIL/ZINC OXIDE 120 GM TUBE TP SCH ×2 (09:00→17:16)
[2018-03-15] MEDS: CLOTRIMAZOLE 1% 15 GM TUBE TP SCH ×2 (09:00→17:16)
[2018-03-15] MEDS: VITS A AND D/WHITE PET/LANOLIN 5 GM PACKET TP SCH ×2 (09:00→20:34)
[2018-03-15] MEDS: Z GUARD REMEDY 2 OZ OINT TP SCH ×2 (09:00→20:34)
[2018-03-15] MEDS: HYDROGEN PEROXIDE 480 ML BOTTLE TP SCH ×2 (09:00→20:34)
[2018-03-15] MEDS: POLYVINYL ALCOHOL 15 ML BOTTLE EACHEYE SCH ×4 (09:08→20:33)
[2018-03-15] MEDS: RANITIDINE GT SCH ×2 (09:09→20:34)
[2018-03-15] MEDS: LEVETIRACETAM SOL (5 ML) 100 MG/ML UDC GT SCH ×2 (09:09→20:34)
[2018-03-15] MEDS: PROSOURCE / PROSTAT (PYXIS) 30 ML UDC JT SCH ×2 (09:10→17:15)
[2018-03-15] MEDS: JEVITY 1.2 CAL 1,000 ML BOTTLE GT PRN (18:59)
[2018-03-15 19:50] VITALS: BP 105/66
--- NOTE | 2018-03-15 20:41 | NUR ---
PATIENT WAS RECEIVED ON CONTINUOUS VENT SUPPORT ON NOTED VENT SETTINGS. SALES MERCHANDISER DONE. AMBU BAG @ BEDSIDE. Q6 BREATHING TX GIVEN WITH NO ADVERSE REACTION NOTED. SUCTION DONE PRN.TRACH TUBE PATENT AND SECURED. ALARMS ON AND AUDIBLE. NO RESPIRATORY DISTRESS NOTED AT THIS TIME. WILL CONTINUE TO MONITOR PATIENT. Addendum: 03/15/18 at 2040 by HARLEY MUNIZ RT Amended: Links added.
[2018-03-15] MEDS: POLYETHYLENE GLYCOL 3350 17 GM POWD.PACK GT SCH (21:01)
[2018-03-16] MEDS: ALBUTEROL FS 2.5 MG/3 ML VIAL.NEB NEB SCH ×4 (01:31→19:16)
[2018-03-16] MEDS: IPRATROPIUM NEB FS 0.5 MG/2.5 ML AMPUL.NEB NEB SCH ×4 (01:31→19:16)
[2018-03-16] MEDS: ERYTHROMYCIN STEARATE 250 MG TABLET GT SCH ×4 (05:01→23:15)
--- NOTE | 2018-03-16 07:49 | NUR ---
pt rec'd trached on [facility] vent on ac mode. no resp distress or sob noted. pt awake and alerrt. trach patent and secured. sx'd for thick mod amt of pale yellow secretions. environmental compliance engineer cuff pressure noted. alarms are set audible. vent plugged into red outlet. ambu bag bedside. will continue to monitor. Addendum: 03/16/18 at 0834 by STELLA DALAL RT Amended: Links added.
[2018-03-16 08:01] VITALS: BP 103/76
[2018-03-16] MEDS: POLYVINYL ALCOHOL 15 ML BOTTLE EACHEYE SCH ×4 (08:18→20:22)
[2018-03-16] MEDS: PROSOURCE / PROSTAT (PYXIS) 30 ML UDC JT SCH ×2 (08:18→16:36)
[2018-03-16] MEDS: LEVETIRACETAM SOL (5 ML) 100 MG/ML UDC GT SCH ×2 (08:18→20:23)
[2018-03-16] MEDS: RANITIDINE GT SCH ×2 (08:18→20:23)
[2018-03-16] MEDS: CLOTRIMAZOLE 1% 15 GM TUBE TP SCH ×2 (09:00→17:10)
[2018-03-16] MEDS: HYDROGEN PEROXIDE 480 ML BOTTLE TP SCH ×2 (09:00→20:23)
[2018-03-16] MEDS: COD LIVER OIL/ZINC OXIDE 120 GM TUBE TP SCH ×2 (09:00→17:10)
[2018-03-16] MEDS: VITS A AND D/WHITE PET/LANOLIN 5 GM PACKET TP SCH ×2 (09:00→20:23)
[2018-03-16] MEDS: Z GUARD REMEDY 2 OZ OINT TP SCH ×2 (09:00→20:23)
--- NOTE | 2018-03-16 19:44 | NUR ---
RT NOTE PT RECEIVED ON [facility] VENT ON THE FOLLOWING NOTED SETTINGS. NO RESP DISTRESS OR SOB NOTED AT THIS TIME. PT SUCTIONED: MOD THIN WHITE/YELLOW SECRETIONS NOTED. BREATHING TX GIVEN, NO ADVERSE REACTIONS NOTED. VENT IS PLUGGED INTO RED OUTLET. ALARMS ARE ON AND AUDIBLE. AMBU BAG AND SPARE TRACH ARE AT BEDSIDE. NURSE INFORMED ME OF COLOR CHANGE AND DISTRESS THROUGH OUT THE DAY. WILL CONT TO MONITOR PT. Addendum: 03/16/18 at 1945 by CHANCE MULLINS RT Amended: Links added.
[2018-03-16] MEDS: ACETAMINOPHEN 650 MG/20 ML UDC- SA PATIENTS-FEVER ONLY GT PRN (19:48)
--- NOTE | 2018-03-16 19:48 | NUR ---
Rcvd on mechanical vent- appears sleeping, easy to arouse ,noted face appears red and skin warm to touch- no signs of acute distress noted, Temp :101 (Axillary), HR 80 Spo2 100%,removed pts blanketsand cooling measures provided, repositioned pt, PRN Tylenon for fever given. charger tester nurse updated. Will cont to monitor.
[2018-03-16] MEDS: POLYETHYLENE GLYCOL 3350 17 GM POWD.PACK GT SCH (21:23)
--- NOTE | 2018-03-16 21:38 | NUR ---
Pt noted sleeping @ this time- Temp now @ 99.0, no acute distress noted, suctioned large amount thing pale yellow secretions form trach and clear secretions from oral. Cont with cooling measures and monitoring.
[2018-03-16] MEDS: JEVITY 1.2 CAL 1,000 ML BOTTLE GT PRN (22:50)
[2018-03-16 22:55] VITALS: BP 104/55
[2018-03-17] MEDS: IPRATROPIUM NEB FS 0.5 MG/2.5 ML AMPUL.NEB NEB SCH ×4 (01:27→19:38)
[2018-03-17] MEDS: ALBUTEROL FS 2.5 MG/3 ML VIAL.NEB NEB SCH ×4 (01:27→19:38)
[2018-03-17] MEDS: ERYTHROMYCIN STEARATE 250 MG TABLET GT SCH ×4 (05:30→23:10)
--- NOTE | 2018-03-17 07:55 | NUR ---
RT PATIENT REC'D TRACHED ON [facility] VENT WITH ORDERED SETTINGS BRAULIO WELL. VENT ALARMS CHECKED + AUDIBLE. CUFF PRESSURE CHECKED INSPECTOR ELEVATORS. PATIENTS AIRWAY SUCTIONED AND PATENT. SMALL/MOD AMT OF PALE SEMITHICK SECRETIONS. B/S CHARITY. AMBU BAG AT HOB Addendum: 03/17/18 at 1627 by JOSE SADLAÑA RT Amended: Links added.
[2018-03-17] MEDS: CLOTRIMAZOLE 1% 15 GM TUBE TP SCH ×2 (09:00→16:42)
[2018-03-17] MEDS: PROSOURCE / PROSTAT (PYXIS) 30 ML UDC JT SCH ×2 (09:00→16:42)
[2018-03-17] MEDS: POLYVINYL ALCOHOL 15 ML BOTTLE EACHEYE SCH ×4 (09:00→20:17)
[2018-03-17] MEDS: LEVETIRACETAM SOL (5 ML) 100 MG/ML UDC GT SCH ×2 (09:00→20:17)
[2018-03-17] MEDS: VITS A AND D/WHITE PET/LANOLIN 5 GM PACKET TP SCH ×2 (09:00→20:17)
[2018-03-17] MEDS: COD LIVER OIL/ZINC OXIDE 120 GM TUBE TP SCH ×2 (09:00→16:42)
[2018-03-17] MEDS: Z GUARD REMEDY 2 OZ OINT TP SCH ×2 (09:00→20:17)
[2018-03-17] MEDS: RANITIDINE GT SCH ×2 (09:00→20:17)
[2018-03-17] MEDS: HYDROGEN PEROXIDE 480 ML BOTTLE TP SCH ×2 (09:00→20:17)
[2018-03-17 12:34] VITALS: BP 96/55
--- NOTE | 2018-03-17 20:00 | NUR ---
RN NOTES: RESIDUAL AT 100ML. FEEDING WITHHELD FOR NOW. WILL CHECK AGAIN IN AN HOUR.
[2018-03-17 20:30] VITALS: BP 129/63
[2018-03-17] MEDS: POLYETHYLENE GLYCOL 3350 17 GM POWD.PACK GT SCH (21:20)
--- NOTE | 2018-03-17 21:27 | NUR ---
RN NOTES: NO GASTRIC RESIDUAL. FEEDING RESUMED.
[2018-03-18] MEDS: JEVITY 1.2 CAL 1,000 ML BOTTLE GT PRN ×2 (00:42→21:27)
[2018-03-18] MEDS: IPRATROPIUM NEB FS 0.5 MG/2.5 ML AMPUL.NEB NEB SCH ×4 (01:53→19:11)
[2018-03-18] MEDS: ALBUTEROL FS 2.5 MG/3 ML VIAL.NEB NEB SCH ×4 (01:53→19:11)
[2018-03-18] MEDS: ERYTHROMYCIN STEARATE 250 MG TABLET GT SCH ×4 (05:55→23:13)
[2018-03-18 07:49] VITALS: BP 108/63
--- NOTE | 2018-03-18 08:12 | NUR ---
PT REC'D TRACHED ON [facility] VENT ON AC MODE. NO RESP DISTRESS OR SOB NOTED. TRACH PATENT AND SECURED. SX'D FOR THICK MOD AMT OF PALE YELLWO SECRETIONS. ALARMS ARE SET AND AUDIBLE. VENT PLUGGED INTO RED OUTLET. AMBU BAG BEDSIDE. WILL CONTINUE TO MONITOR. Addendum: 03/18/18 at 0913 by STELLA DALAL RT Amended: Links added.
[2018-03-18] MEDS: RANITIDINE GT SCH ×2 (08:47→20:05)
[2018-03-18] MEDS: LEVETIRACETAM SOL (5 ML) 100 MG/ML UDC GT SCH ×2 (08:47→20:05)
[2018-03-18] MEDS: COD LIVER OIL/ZINC OXIDE 120 GM TUBE TP SCH ×2 (08:47→17:11)
[2018-03-18] MEDS: PROSOURCE / PROSTAT (PYXIS) 30 ML UDC JT SCH ×2 (08:47→17:11)
[2018-03-18] MEDS: POLYVINYL ALCOHOL 15 ML BOTTLE EACHEYE SCH ×4 (08:47→20:04)
[2018-03-18] MEDS: Z GUARD REMEDY 2 OZ OINT TP SCH ×2 (08:48→20:05)
[2018-03-18] MEDS: HYDROGEN PEROXIDE 480 ML BOTTLE TP SCH ×2 (08:48→20:05)
[2018-03-18] MEDS: VITS A AND D/WHITE PET/LANOLIN 5 GM PACKET TP SCH ×2 (08:48→20:05)
--- NOTE | 2018-03-18 19:38 | NUR ---
RT NOTE PT RECEIVED ON [facility] VENT ON THE FOLLOWING NOTED SETTINGS. NO RESP DISTRESS OR SOB NOTED AT THIS TIME. BREATHING TX GIVEN, NO ADVERSE REACTIONS NOTED. PT SUCTIONED: SMALL THIN WHITE SECRETIONS. VENT IS PLUGGED INTO RED OUTLET. ALARMS ARE ON AND AUDIBLE. SPARE TRACH AND AMBU BAG ARE AT BEDSIDE. WILL CONT TO MONITOR PT. Addendum: 03/18/18 at 1939 by CHACNE MULLINS RT Amended: Links added.
[2018-03-18 19:56] VITALS: BP 100/50
[2018-03-18] MEDS: POLYETHYLENE GLYCOL 3350 17 GM POWD.PACK GT SCH (21:27)
[2018-03-19] MEDS: ALBUTEROL FS 2.5 MG/3 ML VIAL.NEB NEB SCH ×4 (01:27→19:30)
[2018-03-19] MEDS: IPRATROPIUM NEB FS 0.5 MG/2.5 ML AMPUL.NEB NEB SCH ×4 (01:27→19:30)
[2018-03-19] MEDS: ERYTHROMYCIN STEARATE 250 MG TABLET GT SCH ×3 (05:17→18:04)
[2018-03-19 07:37] VITALS: BP 106/62
--- NOTE | 2018-03-19 07:42 | NUR ---
Received male wade pt on a mechanical vent. Pt wade is secure. Vent is plugged into a red outlet, alarms are set and audible, and BMV is at bedside. Addendum: 03/19/18 at 0743 by ANGELO RIZVI RT Amended: Links added.
[2018-03-19] MEDS: LEVETIRACETAM SOL (5 ML) 100 MG/ML UDC GT SCH ×2 (09:00→21:39)
[2018-03-19] MEDS: Z GUARD REMEDY 2 OZ OINT TP SCH ×2 (09:00→21:39)
[2018-03-19] MEDS: RANITIDINE GT SCH ×2 (09:00→21:37)
[2018-03-19] MEDS: COD LIVER OIL/ZINC OXIDE 120 GM TUBE TP SCH ×2 (09:00→17:01)
[2018-03-19] MEDS: PROSOURCE / PROSTAT (PYXIS) 30 ML UDC JT SCH ×2 (09:00→17:01)
[2018-03-19] MEDS: POLYVINYL ALCOHOL 15 ML BOTTLE EACHEYE SCH ×4 (09:00→21:37)
[2018-03-19] MEDS: VITS A AND D/WHITE PET/LANOLIN 5 GM PACKET TP SCH ×2 (09:00→21:39)
[2018-03-19] MEDS: HYDROGEN PEROXIDE 480 ML BOTTLE TP SCH ×2 (09:00→21:39)
--- NOTE | 2018-03-19 19:38 | NUR ---
SUBACUTE/RN NOTE RECEIVED PATIENT, ASLEEP , OXYGENATION AT 99%, BUT WITH HR BET 45-52.MONITORING FOR ANY CHANGES.
[2018-03-19 20:00] VITALS: BP 99/64
[2018-03-19 20:15] VITALS: BP 99/64
[2018-03-19] MEDS: POLYETHYLENE GLYCOL 3350 17 GM POWD.PACK GT SCH (21:39)
[2018-03-20] MEDS: ERYTHROMYCIN STEARATE 250 MG TABLET GT SCH ×5 (00:45→23:42)
[2018-03-20] MEDS: ALBUTEROL FS 2.5 MG/3 ML VIAL.NEB NEB SCH ×4 (01:35→19:31)
[2018-03-20] MEDS: IPRATROPIUM NEB FS 0.5 MG/2.5 ML AMPUL.NEB NEB SCH ×4 (01:35→19:31)
[2018-03-20] MEDS: JEVITY 1.2 CAL 1,000 ML BOTTLE GT PRN ×2 (02:10→18:19)
[2018-03-20 07:43] VITALS: BP 106/61
--- NOTE | 2018-03-20 08:34 | NUR ---
RT RECD PT TRACHED INTACT AND SECURED ON MECH VENT BRAULIO ORDERED SETTINGS WITH CONT PULSE OX AT BEDSIDE. VENT PLUGGED IN RED OUTLET ALARMS ON AND AUDIBLE BAG AND MASK AT HOB. SX MODERATE THIN PALE YELLOW SECRETIONS ON TRACH AND MOUTH TX GIVEN BRAULIO WELL NO ADVERSE REACTION NOTED ATT NO RESP DISTRESS WILL CONT TO MONITOR
[2018-03-20] MEDS: LEVETIRACETAM SOL (5 ML) 100 MG/ML UDC GT SCH ×2 (08:44→20:25)
[2018-03-20] MEDS: COD LIVER OIL/ZINC OXIDE 120 GM TUBE TP SCH ×2 (08:44→16:55)
[2018-03-20] MEDS: RANITIDINE GT SCH ×2 (08:44→20:25)
[2018-03-20] MEDS: PROSOURCE / PROSTAT (PYXIS) 30 ML UDC JT SCH ×2 (08:44→16:55)
[2018-03-20] MEDS: POLYVINYL ALCOHOL 15 ML BOTTLE EACHEYE SCH ×4 (08:44→20:24)
[2018-03-20] MEDS: HYDROGEN PEROXIDE 480 ML BOTTLE TP SCH ×2 (08:45→20:25)
[2018-03-20] MEDS: VITS A AND D/WHITE PET/LANOLIN 5 GM PACKET TP SCH ×2 (08:45→20:25)
[2018-03-20] MEDS: Z GUARD REMEDY 2 OZ OINT TP SCH ×2 (08:45→20:25)
--- NOTE | 2018-03-20 19:31 | NUR ---
RT NOTE: RECEIVED TRACH PT ON [facility] VENT ON NOTED SETTINGS PER MD ORDERS. TRACH IS PATENT AND SECURED. DRY KILN WORKER DONE. Q6 BREATHING TX GIVEN WITH NO ADVERSE REACTION NOTED. SX DONE PRN. VENT PLUGGED INTO RED OUTLET. ALARMS ON AND AUDIBLE. RAGHU BAG @ BEDSIDE. NO RESP DISTRESS AT THIS TIME. WILL CONT TO MONITOR PT. Addendum: 03/20/18 at 2222 by CIRILO LOZOYA RT Amended: Links added.
[2018-03-20 20:36] VITALS: BP 106/53
[2018-03-20] MEDS: POLYETHYLENE GLYCOL 3350 17 GM POWD.PACK GT SCH (22:14)
[2018-03-21] MEDS: ALBUTEROL FS 2.5 MG/3 ML VIAL.NEB NEB SCH ×4 (01:02→19:42)
[2018-03-21] MEDS: IPRATROPIUM NEB FS 0.5 MG/2.5 ML AMPUL.NEB NEB SCH ×4 (01:02→19:42)
[2018-03-21] MEDS: ERYTHROMYCIN STEARATE 250 MG TABLET GT SCH ×4 (05:08→23:29)
[2018-03-21 07:59] VITALS: BP 109/63
[2018-03-21] MEDS: POLYVINYL ALCOHOL 15 ML BOTTLE EACHEYE SCH ×4 (08:49→20:02)
[2018-03-21] MEDS: RANITIDINE GT SCH ×2 (08:50→20:02)
[2018-03-21] MEDS: LEVETIRACETAM SOL (5 ML) 100 MG/ML UDC GT SCH ×2 (08:50→20:02)
[2018-03-21] MEDS: PROSOURCE / PROSTAT (PYXIS) 30 ML UDC JT SCH ×2 (08:50→17:29)
[2018-03-21] MEDS: Z GUARD REMEDY 2 OZ OINT TP SCH ×2 (08:50→20:02)
[2018-03-21] MEDS: HYDROGEN PEROXIDE 480 ML BOTTLE TP SCH ×2 (08:50→20:02)
[2018-03-21] MEDS: COD LIVER OIL/ZINC OXIDE 120 GM TUBE TP SCH ×2 (08:50→17:29)
[2018-03-21] MEDS: VITS A AND D/WHITE PET/LANOLIN 5 GM PACKET TP SCH ×2 (08:50→20:02)
[2018-03-21] MEDS: JEVITY 1.2 CAL 1,000 ML BOTTLE GT PRN (18:11)
[2018-03-21 20:10] VITALS: BP 102/57
[2018-03-21] MEDS: POLYETHYLENE GLYCOL 3350 17 GM POWD.PACK GT SCH (21:02)
[2018-03-22] MEDS: ALBUTEROL FS 2.5 MG/3 ML VIAL.NEB NEB SCH ×4 (01:17→19:37)
[2018-03-22] MEDS: IPRATROPIUM NEB FS 0.5 MG/2.5 ML AMPUL.NEB NEB SCH ×4 (01:17→19:37)
[2018-03-22] MEDS: ERYTHROMYCIN STEARATE 250 MG TABLET GT SCH ×4 (05:25→23:35)
[2018-03-22 07:47] VITALS: BP 100/62
--- NOTE | 2018-03-22 07:49 | NUR ---
Received male wade pt on a mechanical vent. Pt wade is secure. Vent is plugged into a red outlet, alarms are set and audible, and BMV is at bedside. Addendum: 03/22/18 at 0750 by ANGELO RIZVI RT Amended: Links added.
[2018-03-22] MEDS: PROSOURCE / PROSTAT (PYXIS) 30 ML UDC JT SCH ×2 (08:57→17:45)
[2018-03-22] MEDS: Z GUARD REMEDY 2 OZ OINT TP SCH ×2 (08:57→20:24)
[2018-03-22] MEDS: LEVETIRACETAM SOL (5 ML) 100 MG/ML UDC GT SCH ×2 (08:57→20:24)
[2018-03-22] MEDS: HYDROGEN PEROXIDE 480 ML BOTTLE TP SCH ×2 (08:57→20:24)
[2018-03-22] MEDS: COD LIVER OIL/ZINC OXIDE 120 GM TUBE TP SCH ×2 (08:57→17:46)
[2018-03-22] MEDS: POLYVINYL ALCOHOL 15 ML BOTTLE EACHEYE SCH ×4 (08:57→20:23)
[2018-03-22] MEDS: RANITIDINE GT SCH ×2 (08:57→20:24)
[2018-03-22] MEDS: VITS A AND D/WHITE PET/LANOLIN 5 GM PACKET TP SCH ×2 (08:57→20:24)
[2018-03-22] MEDS: JEVITY 1.2 CAL 1,000 ML BOTTLE GT PRN (18:01)
--- NOTE | 2018-03-22 19:49 | NUR ---
RT NOTE PATIENT WAS RECEIVED ON CONTINUOUS VENT SUPPORT ON NOTED VENT SETTINGS. FOOTWEAR PRODUCTION MACHINE OPERATOR DONE. AMBU BAG @ BEDSIDE. Q6 BREATHING TX GIVEN WITH NO ADVERSE REACTION NOTED. SUCTION DONE PRN.TRACH TUBE PATENT AND SECURED. ALARMS ON AND AUDIBLE. NO RESPIRATORY DISTRESS NOTED AT THIS TIME. WILL CONTINUE TO MONITOR PATIENT Addendum: 03/22/18 at 1950 by HARLEY MUNIZ RT Amended: Links added.
[2018-03-22 20:09] VITALS: BP 99/65
[2018-03-22] MEDS: POLYETHYLENE GLYCOL 3350 17 GM POWD.PACK GT SCH (21:12)
[2018-03-23] MEDS: ALBUTEROL FS 2.5 MG/3 ML VIAL.NEB NEB SCH ×4 (01:18→19:22)
[2018-03-23] MEDS: IPRATROPIUM NEB FS 0.5 MG/2.5 ML AMPUL.NEB NEB SCH ×4 (01:18→19:22)
[2018-03-23] MEDS: ERYTHROMYCIN STEARATE 250 MG TABLET GT SCH ×4 (05:23→23:13)
[2018-03-23 07:51] VITALS: BP 110/69
[2018-03-23] MEDS: Z GUARD REMEDY 2 OZ OINT TP SCH ×2 (09:00→20:28)
[2018-03-23] MEDS: VITS A AND D/WHITE PET/LANOLIN 5 GM PACKET TP SCH ×2 (09:00→20:28)
[2018-03-23] MEDS: HYDROGEN PEROXIDE 480 ML BOTTLE TP SCH ×2 (09:00→20:28)
[2018-03-23] MEDS: COD LIVER OIL/ZINC OXIDE 120 GM TUBE TP SCH ×2 (09:00→16:53)
[2018-03-23] MEDS: POLYVINYL ALCOHOL 15 ML BOTTLE EACHEYE SCH ×4 (09:09→20:28)
[2018-03-23] MEDS: LEVETIRACETAM SOL (5 ML) 100 MG/ML UDC GT SCH ×2 (09:10→20:28)
[2018-03-23] MEDS: PROSOURCE / PROSTAT (PYXIS) 30 ML UDC JT SCH ×2 (09:10→16:53)
[2018-03-23] MEDS: RANITIDINE GT SCH ×2 (09:10→20:28)
--- NOTE | 2018-03-23 10:47 | NUR ---
PT RCVD TRACH'D ON MECHANICAL VENT WITH CHARTED SETTINGS. HHN TX GIVEN WITH NO ADVERSE REACTION NOTED. SX DONE. PT TRACH PATENT AND SECURE. ALARMS ARE ON AND AUDIBLE. VENT PLUGGED INTO RED OUTLET. AMBU BAG AT BEDSIDE. WILL CONTINUE TO MONITOR. Addendum: 03/23/18 at 1049 by STANFORD PETERS RT Amended: Links added.
[2018-03-23] MEDS: JEVITY 1.2 CAL 1,000 ML BOTTLE GT PRN (18:40)
[2018-03-23 20:08] VITALS: BP 116/69
[2018-03-23] MEDS: POLYETHYLENE GLYCOL 3350 17 GM POWD.PACK GT SCH (21:17)
--- NOTE | 2018-03-23 22:59 | NUR ---
RT NOTE PATIENT WAS RECEIVED ON CONTINUOUS VENT SUPPORT ON NOTED VENT SETTINGS. HHN INLINE TREATMENT WAS GIVEN, NO ADVERSE REACTION NOTED ,PRN SUCTION WAS DONE. TRACH TUBE PATENT AND SECURED. ALARMS ON AND AUDIBLE. WILL CONTINUE TO MONITOR PATIENT Addendum: 03/23/18 at 2300 by HARLEY MUNIZ RT Amended: Links added.
[2018-03-24] MEDS: IPRATROPIUM NEB FS 0.5 MG/2.5 ML AMPUL.NEB NEB SCH ×4 (01:28→19:31)
[2018-03-24] MEDS: ALBUTEROL FS 2.5 MG/3 ML VIAL.NEB NEB SCH ×4 (01:28→19:31)
[2018-03-24] MEDS: ERYTHROMYCIN STEARATE 250 MG TABLET GT SCH ×3 (05:27→17:48)
[2018-03-24 07:30] VITALS: BP 108/69
[2018-03-24] MEDS: PROSOURCE / PROSTAT (PYXIS) 30 ML UDC JT SCH ×2 (09:27→17:48)
[2018-03-24] MEDS: LEVETIRACETAM SOL (5 ML) 100 MG/ML UDC GT SCH ×2 (09:27→21:09)
[2018-03-24] MEDS: RANITIDINE GT SCH ×2 (09:27→21:09)
[2018-03-24] MEDS: POLYVINYL ALCOHOL 15 ML BOTTLE EACHEYE SCH ×4 (09:27→21:09)
[2018-03-24] MEDS: Z GUARD REMEDY 2 OZ OINT TP SCH ×2 (09:28→21:09)
[2018-03-24] MEDS: COD LIVER OIL/ZINC OXIDE 120 GM TUBE TP SCH ×2 (09:28→17:48)
[2018-03-24] MEDS: HYDROGEN PEROXIDE 480 ML BOTTLE TP SCH ×2 (09:28→21:09)
[2018-03-24] MEDS: VITS A AND D/WHITE PET/LANOLIN 5 GM PACKET TP SCH ×2 (09:28→21:09)
--- NOTE | 2018-03-24 11:37 | NUR ---
RT RECD PT TRACHED INTACT & SECURED ON MECH VENT BRAULIO ORDERED SETTINGS ALARMS ON AND AUDIBLE BAG AND MASK AT HOB TX GIVEN BRAULIO WELL NO ADVERSE REACTION NOTED ATT NO RESP DISTRESS THROUGHOUT SHIFT
[2018-03-24] MEDS: JEVITY 1.2 CAL 1,000 ML BOTTLE GT PRN (17:51)
--- NOTE | 2018-03-24 19:31 | NUR ---
RT NOTE: RECEIVED TRACH PT ON [facility] VENT ON NOTED SETTINGS PER MD ORDERS. TRACH IS PATENT AND SECURED. CLINICAL ASSOC DONE. Q6 BREATHING TX GIVEN WITH NO ADVERSE REACTION NOTED. SX DONE PRN. VENT PLUGGED INTO RED OUTLET. ALARMS ON AND AUDIBLE. RAGHU BAG @ BEDSIDE. NO RESP DISTRESS AT THIS TIME. WILL CONT TO MONITOR PT. Addendum: 03/25/18 at 0239 by CIRILO LOZOYA RT Amended: Links added.
[2018-03-24 19:45] VITALS: BP 104/68
[2018-03-24] MEDS: POLYETHYLENE GLYCOL 3350 17 GM POWD.PACK GT SCH (21:09)
[2018-03-25] MEDS: ERYTHROMYCIN STEARATE 250 MG TABLET GT SCH ×4 (00:10→17:54)
[2018-03-25] MEDS: IPRATROPIUM NEB FS 0.5 MG/2.5 ML AMPUL.NEB NEB SCH ×4 (01:29→20:15)
[2018-03-25] MEDS: ALBUTEROL FS 2.5 MG/3 ML VIAL.NEB NEB SCH ×4 (01:29→20:15)
[2018-03-25 07:41] VITALS: BP 103/60
[2018-03-25] MEDS: PROSOURCE / PROSTAT (PYXIS) 30 ML UDC JT SCH ×2 (08:49→16:34)
[2018-03-25] MEDS: RANITIDINE GT SCH ×2 (08:49→20:05)
[2018-03-25] MEDS: LEVETIRACETAM SOL (5 ML) 100 MG/ML UDC GT SCH ×2 (08:49→20:05)
[2018-03-25] MEDS: POLYVINYL ALCOHOL 15 ML BOTTLE EACHEYE SCH ×4 (08:49→20:05)
[2018-03-25] MEDS: COD LIVER OIL/ZINC OXIDE 120 GM TUBE TP SCH ×2 (09:00→16:52)
[2018-03-25] MEDS: Z GUARD REMEDY 2 OZ OINT TP SCH ×2 (09:00→20:05)
[2018-03-25] MEDS: HYDROGEN PEROXIDE 480 ML BOTTLE TP SCH ×2 (09:00→20:05)
[2018-03-25] MEDS: VITS A AND D/WHITE PET/LANOLIN 5 GM PACKET TP SCH ×2 (09:00→20:05)
--- NOTE | 2018-03-25 09:17 | NUR ---
RT NOTE RECEIVED PT MECHANICALLY VENTILATED VIA CUFF TRACHEOSTOMY TUBE. CUFF INFLATED. TRACH TUBE MIDLINE AND SECURE. VENTILATOR SETTINGS PRESCRIBED. ALARMS SET PER PROTOCOL AND AUDIBLE. VENT PLUGGED IN TO RED OUTLET. AMBU BAG AT BED SIDE. NO DISTRESS NOTED AT MOMENT. Addendum: 03/25/18 at 0917 by GLENIS MUNIZ RT Amended: Links added.
--- NOTE | 2018-03-25 19:14 | NUR ---
Seen by LIVESTOCK COUNTER Germaine Mike. She ordered to have pt use PMV as tolerated when family is at bedside.
[2018-03-25 19:44] VITALS: BP 121/72
[2018-03-25] MEDS: POLYETHYLENE GLYCOL 3350 17 GM POWD.PACK GT SCH (21:57)
[2018-03-26] MEDS: ERYTHROMYCIN STEARATE 250 MG TABLET GT SCH ×5 (00:12→23:30)
[2018-03-26] MEDS: IPRATROPIUM NEB FS 0.5 MG/2.5 ML AMPUL.NEB NEB SCH ×4 (02:02→19:11)
[2018-03-26] MEDS: ALBUTEROL FS 2.5 MG/3 ML VIAL.NEB NEB SCH ×4 (02:02→19:11)
[2018-03-26 07:40] VITALS: BP 109/69
[2018-03-26] MEDS: VITS A AND D/WHITE PET/LANOLIN 5 GM PACKET TP SCH ×2 (09:25→20:03)
[2018-03-26] MEDS: RANITIDINE GT SCH ×2 (09:25→20:02)
[2018-03-26] MEDS: POLYVINYL ALCOHOL 15 ML BOTTLE EACHEYE SCH ×4 (09:25→20:02)
[2018-03-26] MEDS: HYDROGEN PEROXIDE 480 ML BOTTLE TP SCH ×2 (09:25→20:02)
[2018-03-26] MEDS: LEVETIRACETAM SOL (5 ML) 100 MG/ML UDC GT SCH ×2 (09:25→20:02)
[2018-03-26] MEDS: Z GUARD REMEDY 2 OZ OINT TP SCH ×2 (09:25→20:03)
[2018-03-26] MEDS: COD LIVER OIL/ZINC OXIDE 120 GM TUBE TP SCH ×2 (09:25→16:13)
[2018-03-26] MEDS: PROSOURCE / PROSTAT (PYXIS) 30 ML UDC JT SCH ×2 (09:25→16:13)
[2018-03-26] MEDS: JEVITY 1.2 CAL 1,000 ML BOTTLE GT PRN (19:03)
--- NOTE | 2018-03-26 19:12 | NUR ---
PT RCVD VANDA'D ON MECHANICAL VENT WITH CHARTED SETTINGS. HHN TX GIVEN WITH NO ADVERSE REACTION NOTED. SX DONE. PT TRACH PATENT AND SECURE. ALARMS ARE ON AND AUDIBLE. VENT PLUGGED INTO RED OUTLET. AMBU BAG AT BEDSIDE. WILL CONTINUE TO MONITOR. Addendum: 03/26/18 at 1913 by MASOOD POLK RT Amended: Links added.
[2018-03-26 19:53] VITALS: BP 136/55
[2018-03-26] MEDS: POLYETHYLENE GLYCOL 3350 17 GM POWD.PACK GT SCH (22:07)
[2018-03-27] MEDS: IPRATROPIUM NEB FS 0.5 MG/2.5 ML AMPUL.NEB NEB SCH ×4 (00:49→19:45)
[2018-03-27] MEDS: ALBUTEROL FS 2.5 MG/3 ML VIAL.NEB NEB SCH ×4 (00:49→19:45)
[2018-03-27] MEDS: ERYTHROMYCIN STEARATE 250 MG TABLET GT SCH ×4 (05:04→23:16)
[2018-03-27] MEDS: VITS A AND D/WHITE PET/LANOLIN 5 GM PACKET TP SCH ×2 (08:55→20:12)
[2018-03-27] MEDS: COD LIVER OIL/ZINC OXIDE 120 GM TUBE TP SCH ×2 (08:55→17:00)
[2018-03-27] MEDS: RANITIDINE GT SCH ×2 (08:55→20:11)
[2018-03-27] MEDS: POLYVINYL ALCOHOL 15 ML BOTTLE EACHEYE SCH ×4 (08:55→20:11)
[2018-03-27] MEDS: PROSOURCE / PROSTAT (PYXIS) 30 ML UDC JT SCH ×2 (08:55→17:00)
[2018-03-27] MEDS: HYDROGEN PEROXIDE 480 ML BOTTLE TP SCH ×2 (08:55→20:11)
[2018-03-27] MEDS: LEVETIRACETAM SOL (5 ML) 100 MG/ML UDC GT SCH ×2 (08:55→20:11)
[2018-03-27] MEDS: Z GUARD REMEDY 2 OZ OINT TP SCH ×2 (08:55→20:12)
[2018-03-27 12:06] VITALS: BP 101/66
[2018-03-27] MEDS: JEVITY 1.2 CAL 1,000 ML BOTTLE GT PRN (19:01)
[2018-03-27 20:12] VITALS: BP 129/73
[2018-03-27] MEDS: POLYETHYLENE GLYCOL 3350 17 GM POWD.PACK GT SCH (22:05)
[2018-03-28] MEDS: ALBUTEROL FS 2.5 MG/3 ML VIAL.NEB NEB SCH ×4 (01:51→19:42)
[2018-03-28] MEDS: IPRATROPIUM NEB FS 0.5 MG/2.5 ML AMPUL.NEB NEB SCH ×4 (01:51→19:42)
[2018-03-28] MEDS: ERYTHROMYCIN STEARATE 250 MG TABLET GT SCH ×4 (05:11→23:37)
[2018-03-28 07:34] VITALS: BP 107/57
[2018-03-28] MEDS: LEVETIRACETAM SOL (5 ML) 100 MG/ML UDC GT SCH ×2 (09:04→20:40)
[2018-03-28] MEDS: COD LIVER OIL/ZINC OXIDE 120 GM TUBE TP SCH ×2 (09:04→16:59)
[2018-03-28] MEDS: HYDROGEN PEROXIDE 480 ML BOTTLE TP SCH ×2 (09:04→20:40)
[2018-03-28] MEDS: RANITIDINE GT SCH ×2 (09:04→20:40)
[2018-03-28] MEDS: PROSOURCE / PROSTAT (PYXIS) 30 ML UDC JT SCH ×2 (09:04→16:59)
[2018-03-28] MEDS: POLYVINYL ALCOHOL 15 ML BOTTLE EACHEYE SCH ×4 (09:04→20:40)
[2018-03-28] MEDS: VITS A AND D/WHITE PET/LANOLIN 5 GM PACKET TP SCH ×2 (09:05→20:41)
[2018-03-28] MEDS: Z GUARD REMEDY 2 OZ OINT TP SCH ×2 (09:05→20:41)
--- NOTE | 2018-03-28 12:57 | NUR ---
Pt's urine appears clear yellowish. No foul odor noted. Pt's temp 97.5 F.
[2018-03-28 19:29] VITALS: BP 131/85
[2018-03-28] MEDS: POLYETHYLENE GLYCOL 3350 17 GM POWD.PACK GT SCH (22:36)
[2018-03-29] MEDS: ALBUTEROL FS 2.5 MG/3 ML VIAL.NEB NEB SCH ×4 (01:20→19:26)
[2018-03-29] MEDS: IPRATROPIUM NEB FS 0.5 MG/2.5 ML AMPUL.NEB NEB SCH ×4 (01:20→19:26)
[2018-03-29] MEDS: ERYTHROMYCIN STEARATE 250 MG TABLET GT SCH ×4 (05:09→23:18)
[2018-03-29 07:37] VITALS: BP 94/47
--- NOTE | 2018-03-29 07:49 | NUR ---
PT REC'D TRACHED ON [facility] VENT ON AC MODE. NO RESP DISTRESS OR SOB NOTED. TRACH PATENT AND SECURED. SX'D FOR THICK MOD AMT OF PALE YELLOW SECRETIONS. ALARMS ARE SET AND AUDIBLE. VENT PLUGGED INTO RED OUTLET. AMBU BAG BEDSIDE. WILL CONTINUE TO MONITOR. Addendum: 03/29/18 at 1557 by STELLA DALAL RT Amended: Links added.
[2018-03-29] MEDS: RANITIDINE GT SCH ×2 (08:37→20:12)
[2018-03-29] MEDS: HYDROGEN PEROXIDE 480 ML BOTTLE TP SCH ×2 (08:37→21:46)
[2018-03-29] MEDS: LEVETIRACETAM SOL (5 ML) 100 MG/ML UDC GT SCH ×2 (08:37→20:12)
[2018-03-29] MEDS: POLYVINYL ALCOHOL 15 ML BOTTLE EACHEYE SCH ×4 (08:37→20:12)
[2018-03-29] MEDS: PROSOURCE / PROSTAT (PYXIS) 30 ML UDC JT SCH ×2 (08:37→16:16)
[2018-03-29] MEDS: VITS A AND D/WHITE PET/LANOLIN 5 GM PACKET TP SCH ×2 (08:37→21:46)
[2018-03-29] MEDS: Z GUARD REMEDY 2 OZ OINT TP SCH (08:37)
[2018-03-29] MEDS: COD LIVER OIL/ZINC OXIDE 120 GM TUBE TP SCH ×2 (08:37→16:16)
[2018-03-29] MEDS: JEVITY 1.2 CAL 1,000 ML BOTTLE GT PRN (15:54)
--- NOTE | 2018-03-29 16:45 | NUR ---
Spoke with Dr. Shafer and made aware of the preliminary urine culture result showing gram negative rods. Informed MD that during IDT meeting, CARMELA Jones is recommending to treat patient prophylactically for a couple of days and go from there. Family is requesting patient be given shower in the shower room but unable to take patient out of the room due to isolation. New order given to start Bactrim DS/GT BID x 3 days and to give shower on Sunday. As for follow-up culture, he said to refer to infection control nurse/ID MD for recommendation. Order noted and carried out. Family notified through Sugey Mitchell.
[2018-03-29] MEDS: SULFAMETH/TRIMETH 800/160 MG 1 UDTAB TABLET PO SCH (18:14)
[2018-03-29 19:20] VITALS: BP 100/61
[2018-03-29 20:00] VITALS: BP_SYST 100; BP_SYST 132; BP_DIAS 61; BP_DIAS 73
[2018-03-29] MEDS: POLYETHYLENE GLYCOL 3350 17 GM POWD.PACK GT SCH (21:46)
[2018-03-29] MEDS: Z GUARD REMEDY 4 OZ OINT TP SCH (21:46)
[2018-03-30] MEDS: IPRATROPIUM NEB FS 0.5 MG/2.5 ML AMPUL.NEB NEB SCH ×4 (01:29→19:27)
[2018-03-30] MEDS: ALBUTEROL FS 2.5 MG/3 ML VIAL.NEB NEB SCH ×4 (01:29→19:27)
[2018-03-30] MEDS: SULFAMETH/TRIMETH 800/160 MG 1 UDTAB TABLET PO SCH (05:55)
[2018-03-30] MEDS: ERYTHROMYCIN STEARATE 250 MG TABLET GT SCH ×3 (05:55→17:31)
[2018-03-30 08:00] VITALS: BP 119/72
[2018-03-30 08:10] VITALS: BP 119/72
[2018-03-30] MEDS: POLYVINYL ALCOHOL 15 ML BOTTLE EACHEYE SCH ×4 (08:10→20:23)
[2018-03-30] MEDS: LEVETIRACETAM SOL (5 ML) 100 MG/ML UDC GT SCH ×2 (08:10→20:23)
[2018-03-30] MEDS: RANITIDINE GT SCH ×2 (08:11→20:23)
[2018-03-30] MEDS: VITS A AND D/WHITE PET/LANOLIN 5 GM PACKET TP SCH ×2 (08:13→20:23)
[2018-03-30] MEDS: Z GUARD REMEDY 4 OZ OINT TP SCH ×2 (08:13→20:23)
[2018-03-30] MEDS: PROSOURCE / PROSTAT (PYXIS) 30 ML UDC JT SCH ×2 (08:15→17:29)
[2018-03-30] MEDS: HYDROGEN PEROXIDE 480 ML BOTTLE TP SCH ×2 (08:29→20:23)
[2018-03-30] MEDS: COD LIVER OIL/ZINC OXIDE 120 GM TUBE TP SCH ×2 (08:29→17:29)
--- NOTE | 2018-03-30 10:10 | NUR ---
Left a message to Dr. Shafer to call back to relay final urine culture result. Awaiting for his return call.
--- NOTE | 2018-03-30 10:40 | NUR ---
Received a call from Dr. Shafer, reported final urine culture result showing >100 cfu/ml of E. Coli ESBL. New order given to discontinue Bactrim DS and start patient on Tobramycin IV Q 24 hours x 7 days per pharmacy to dose. Order faxed to [facility] and [facility] pharmacy.
[2018-03-30] MEDS ORDERED: TOBRAMYCIN 80 MG in IV D5W 50 ML IV SCH (12:00)
[2018-03-30 12:37] LABS: CALCIUM, SERUM 9.4 mg/dL (8.5-10.1); CREATININE 0.2 mg/dL (0.6-1.3); POTASSIUM 4.5 mmol/L (3.5-5.1)
--- NOTE | 2018-03-30 12:59 | NUR ---
Notified resident's responsible green party Sugey Stephen that patient's ATB was changed to IV Tobramycin. Urine culture shows E. Coli ESBL and is sensitive to Tobramycin. Appreciated the call and will relay information to resident's father. Per [facility], patient's insurance does not cover Tobramycin and [facility] pharmacy will provide the medication. Awaiting for dosing.
[2018-03-30] MEDS ORDERED: FEE PK DOSING 1 MIN EA MC ONE (13:04)
[2018-03-30] MEDS ORDERED: D5W IV SCH ×2 (14:00→20:00)
[2018-03-30] MEDS ORDERED: TOBRAMYCIN IV SCH ×2 (14:00→20:00)
--- NOTE | 2018-03-30 15:00 | NUR ---
Received a call from [facility] pharmacy that Tobramycin is not covered patient's insurance. [facility] pharmacy notified and will provide medication and dosing.
--- NOTE | 2018-03-30 16:10 | NUR ---
Notified Dr. Shafer that patient is a hard stick and unable to get an IV access. New order given to insert midline. Nursing cooler supervisor notified. Pharmacist informed that ATB can not be given at this, awaiting for PICC line nurse to insert a midline.
--- NOTE | 2018-03-30 18:30 | NUR ---
Midline inserted in the R basilic Gauze #18. Per PICC line nurse, the line is flushing well, but cannot draw blood. Circumference at the insertion site 31 cm. Endorsed to monitor site for any increase in circumference.
[2018-03-30] MEDS: JEVITY 1.2 CAL 1,000 ML BOTTLE GT PRN (20:00)
[2018-03-30 20:34] VITALS: BP 115/70
--- NOTE | 2018-03-30 21:52 | NUR ---
RT NOTE PATIENT WAS RECEIVED ON CONTINUOUS VENT SUPPORT ON NOTED VENT SETTINGS. COMPOSITION MOLDER DONE. AMBU BAG @ BEDSIDE. Q6 BREATHING TX GIVEN WITH NO ADVERSE REACTION NOTED. SUCTION DONE PRN.TRACH TUBE PATENT AND SECURED. ALARMS ON AND AUDIBLE. NO RESPIRATORY DISTRESS NOTED AT THIS TIME. WILL CONTINUE TO MONITOR PATIENT. Addendum: 03/30/18 at 2153 by HARLEY MUNIZ RT Amended: Links added.
[2018-03-30] MEDS: POLYETHYLENE GLYCOL 3350 17 GM POWD.PACK GT SCH (22:25)
[2018-03-31] MEDS: ERYTHROMYCIN STEARATE 250 MG TABLET GT SCH ×5 (00:30→23:58)
[2018-03-31] MEDS: ALBUTEROL FS 2.5 MG/3 ML VIAL.NEB NEB SCH ×4 (01:39→19:34)
[2018-03-31] MEDS: IPRATROPIUM NEB FS 0.5 MG/2.5 ML AMPUL.NEB NEB SCH ×4 (01:39→19:34)
[2018-03-31] MEDS: POLYVINYL ALCOHOL 15 ML BOTTLE EACHEYE SCH ×4 (09:44→20:21)
[2018-03-31] MEDS: HYDROGEN PEROXIDE 480 ML BOTTLE TP SCH ×2 (09:44→20:21)
[2018-03-31] MEDS: RANITIDINE GT SCH ×2 (09:44→20:21)
[2018-03-31] MEDS: LEVETIRACETAM SOL (5 ML) 100 MG/ML UDC GT SCH ×2 (09:44→20:21)
[2018-03-31] MEDS: VITS A AND D/WHITE PET/LANOLIN 5 GM PACKET TP SCH ×2 (09:44→20:21)
[2018-03-31] MEDS: COD LIVER OIL/ZINC OXIDE 120 GM TUBE TP SCH ×2 (09:44→16:40)
[2018-03-31] MEDS: PROSOURCE / PROSTAT (PYXIS) 30 ML UDC JT SCH ×2 (09:44→16:40)
[2018-03-31] MEDS: Z GUARD REMEDY 4 OZ OINT TP SCH ×2 (09:44→20:21)
--- NOTE | 2018-03-31 11:30 | NUR ---
Dr. Shafer came and examined patient, he ordered swallow eval murphy. due to patients' desire to eat. Noted and carried out Patient currently on IV ATB Tobramycin 490mg for UTI, midline to upper right arm, dressing patent and intact. No adverse reactions noted. afebrile at this time. Patient closely monitored.
[2018-03-31 11:39] LABS: CALCIUM, SERUM 10.4 mg/dL (8.5-10.1); CREATININE 0.4 mg/dL (0.6-1.3); POTASSIUM 5.6 mmol/L (3.5-5.1)
--- NOTE | 2018-03-31 12:30 | NUR ---
Noted patients' lab results (CMP) today, K+ elevated 5.6, called Dr. Shafer and relayed results, he ordered kayexalate 30 gms via GT now and check CMP results murphy in am and relay results to him. All orders noted and carried out. Called to [facility] for kayexalate, will send VELASQUEZ.
--- NOTE | 2018-03-31 13:00 | NUR ---
Med nurse administered Kayexalate 30 gms via Gt, patient conchsi. well, no nausea and vomiting noted at this time. Patient not in distress.
[2018-03-31] MEDS ORDERED: SODIUM POLYSTYRENE SULFONATE 15 G/60 ML BOTTLE PO ONE (13:30)
[2018-03-31] MEDS ORDERED: SODIUM POLYSTYRENE SULF. PWD 15 GM UDC PO ONE (14:00)
--- NOTE | 2018-03-31 14:30 | NUR ---
lab called regarding tobramycin trough level, 4.5 (high). Called pharmacy and relayed results to
--- NOTE | 2018-03-31 14:45 | NUR ---
Gabrile (pharmacist) called for tobramycin dosing, new order: Tobramycin 490 mg IV q 36 hrs (to be given murphy at 8 am), Tobramycin trough level at 7 am and tobramycin random level at 1600. He also emphasized that if theres' tobramycin trough level order needs to be done promptly, he is aware patient is a very hard stick thats' the reason why got delayed in drawing blood. All orders noted and carried out, will endorsed to assistant casino shift manager of new orders.
[2018-03-31 14:54] VITALS: BP 99/60
[2018-03-31] MEDS: JEVITY 1.2 CAL 1,000 ML BOTTLE GT PRN (18:31)
[2018-03-31 20:29] VITALS: BP 102/66
[2018-03-31] MEDS: POLYETHYLENE GLYCOL 3350 17 GM POWD.PACK GT SCH (22:00)
[2018-04-01] MEDS: ALBUTEROL FS 2.5 MG/3 ML VIAL.NEB NEB SCH ×4 (00:38→20:16)
[2018-04-01] MEDS: IPRATROPIUM NEB FS 0.5 MG/2.5 ML AMPUL.NEB NEB SCH ×4 (00:38→20:16)
[2018-04-01] MEDS: ERYTHROMYCIN STEARATE 250 MG TABLET GT SCH ×4 (05:00→23:49)
[2018-04-01 07:45] LABS: CALCIUM, SERUM 9.9 mg/dL (8.5-10.1); CREATININE 0.3 mg/dL (0.6-1.3); POTASSIUM 4.2 mmol/L (3.5-5.1)
[2018-04-01 08:15] VITALS: BP 103/66
[2018-04-01] MEDS: POLYVINYL ALCOHOL 15 ML BOTTLE EACHEYE SCH ×4 (09:18→21:10)
[2018-04-01] MEDS: Z GUARD REMEDY 4 OZ OINT TP SCH ×2 (09:18→21:12)
[2018-04-01] MEDS: PROSOURCE / PROSTAT (PYXIS) 30 ML UDC JT SCH ×2 (09:18→17:00)
[2018-04-01] MEDS: HYDROGEN PEROXIDE 480 ML BOTTLE TP SCH ×2 (09:18→21:12)
[2018-04-01] MEDS: RANITIDINE GT SCH ×2 (09:18→21:11)
[2018-04-01] MEDS: LEVETIRACETAM SOL (5 ML) 100 MG/ML UDC GT SCH ×2 (09:18→21:12)
[2018-04-01] MEDS: COD LIVER OIL/ZINC OXIDE 120 GM TUBE TP SCH ×2 (09:18→17:00)
[2018-04-01] MEDS: VITS A AND D/WHITE PET/LANOLIN 5 GM PACKET TP SCH ×2 (09:18→21:12)
[2018-04-01] MEDS: D5W IV SCH (10:00)
[2018-04-01] MEDS: TOBRAMYCIN IV SCH (10:00)
--- NOTE | 2018-04-01 13:00 | NUR ---
Relayed BMP result to Dr Shafer.
[2018-04-01 20:10] VITALS: BP 102/69
--- NOTE | 2018-04-01 20:56 | NUR ---
PT RCVD TRACH'D ON MECHANICAL VENT WITH CHARTED SETTINGS. HHN TX GIVEN AND NO ADVERSE REACTION NOTED. SX DONE. PT TRACH PATENT AND SECURE. CUFF CHECKED VIA RETAIL INTERIOR DESIGNER. ALARMS ARE ON AND AUDIBLE. VENT PLUGGED INTO RED OUTLET. AMBU BAG AT BEDSIDE. WILL CONTINUE TO MONITOR. Addendum: 04/01/18 at 2055 by STANFORD PETERS RT Amended: Links added.
[2018-04-01] MEDS: POLYETHYLENE GLYCOL 3350 17 GM POWD.PACK GT SCH (21:12)
[2018-04-02] MEDS: IPRATROPIUM NEB FS 0.5 MG/2.5 ML AMPUL.NEB NEB SCH ×4 (01:23→20:06)
[2018-04-02] MEDS: ALBUTEROL FS 2.5 MG/3 ML VIAL.NEB NEB SCH ×4 (01:23→20:06)
[2018-04-02] MEDS: ERYTHROMYCIN STEARATE 250 MG TABLET GT SCH ×4 (06:18→23:28)
[2018-04-02 07:38] VITALS: BP 117/67
--- NOTE | 2018-04-02 07:41 | NUR ---
Male wade pt on a mechanical vent. Pt wade is secure. Vent is plugged into a red outlet, alarms are set and audible, and BMV is at bedside. Addendum: 04/02/18 at 0742 by ANGELO RIZVI RT Amended: Links added.
[2018-04-02 08:12] LABS: CALCIUM, SERUM 9.9 mg/dL (8.5-10.1); CREATININE 0.3 mg/dL (0.6-1.3); POTASSIUM 3.9 mmol/L (3.5-5.1)
[2018-04-02] MEDS: POLYVINYL ALCOHOL 15 ML BOTTLE EACHEYE SCH ×4 (08:59→21:10)
[2018-04-02] MEDS: RANITIDINE GT SCH ×2 (09:00→21:10)
[2018-04-02] MEDS: Z GUARD REMEDY 4 OZ OINT TP SCH ×2 (09:00→21:10)
[2018-04-02] MEDS: VITS A AND D/WHITE PET/LANOLIN 5 GM PACKET TP SCH ×2 (09:00→21:10)
[2018-04-02] MEDS: PROSOURCE / PROSTAT (PYXIS) 30 ML UDC JT SCH ×2 (09:00→17:25)
[2018-04-02] MEDS: HYDROGEN PEROXIDE 480 ML BOTTLE TP SCH ×2 (09:00→21:10)
[2018-04-02] MEDS: LEVETIRACETAM SOL (5 ML) 100 MG/ML UDC GT SCH ×2 (09:00→21:10)
[2018-04-02] MEDS: COD LIVER OIL/ZINC OXIDE 120 GM TUBE TP SCH ×2 (09:00→17:25)
--- NOTE | 2018-04-02 09:32 | NUR ---
Late entry for 04/01/18 Pt was seen by [facility]. No new order.
--- NOTE | 2018-04-02 17:47 | NUR ---
Pt was moved to Room 273 due to contact isolation for ESBL urine. Pt afebrile, T 98.0 F. Urine clear yellow with no foul odor. Reminded staff to observe isolation precautions and handwashing. Informed pt's aunnelson Mayes. Addendum: 04/02/18 at 1752 by AMA EL RN Pt on Tobramycin for UTI.
[2018-04-02] MEDS: JEVITY 1.2 CAL 1,000 ML BOTTLE JT PRN (18:37)
[2018-04-02 20:12] VITALS: BP 106/59
[2018-04-02] MEDS: D5W IV SCH (20:19)
[2018-04-02] MEDS: TOBRAMYCIN IV SCH (20:19)
[2018-04-02] MEDS: POLYETHYLENE GLYCOL 3350 17 GM POWD.PACK GT SCH (21:10)
--- NOTE | 2018-04-02 21:19 | NUR ---
PT RCVD TRACH'D ON MECHANICAL VENT WITH CHARTED SETTINGS. HHN TX GIVEN AND NO ADVERSE REACTION NOTED. SX DONE. PT TRACH PATENT AND SECURE. CUFF CHECKED VIA JOY LOADING MACHINE OPERATOR. ALARMS ARE ON AND AUDIBLE. VENT PLUGGED INTO RED OUTLET. AMBU BAG AT BEDSIDE. WILL CONTINUE TO MONITOR. Addendum: 04/02/18 at 2120 by STANFORD PETERS RT Amended: Links added.
[2018-04-03] MEDS: IPRATROPIUM NEB FS 0.5 MG/2.5 ML AMPUL.NEB NEB SCH ×4 (00:58→19:39)
[2018-04-03] MEDS: ALBUTEROL FS 2.5 MG/3 ML VIAL.NEB NEB SCH ×4 (00:58→19:39)
[2018-04-03] MEDS: ERYTHROMYCIN STEARATE 250 MG TABLET GT SCH ×4 (05:44→23:39)
[2018-04-03 07:25] LABS: CALCIUM, SERUM 9.9 mg/dL (8.5-10.1); CREATININE 0.3 mg/dL (0.6-1.3); POTASSIUM 5.8 mmol/L (3.5-5.1)
[2018-04-03 07:49] VITALS: BP 106/57
[2018-04-03] MEDS: Z GUARD REMEDY 4 OZ OINT TP SCH ×2 (09:00→21:33)
[2018-04-03] MEDS: VITS A AND D/WHITE PET/LANOLIN 5 GM PACKET TP SCH ×2 (09:00→21:33)
[2018-04-03] MEDS: LEVETIRACETAM SOL (5 ML) 100 MG/ML UDC GT SCH ×2 (09:00→21:33)
[2018-04-03] MEDS: RANITIDINE GT SCH ×2 (09:00→21:33)
[2018-04-03] MEDS: HYDROGEN PEROXIDE 480 ML BOTTLE TP SCH ×2 (09:00→21:33)
[2018-04-03] MEDS: POLYVINYL ALCOHOL 15 ML BOTTLE EACHEYE SCH ×4 (09:00→21:32)
[2018-04-03] MEDS: PROSOURCE / PROSTAT (PYXIS) 30 ML UDC JT SCH ×2 (09:00→17:40)
[2018-04-03] MEDS: COD LIVER OIL/ZINC OXIDE 120 GM TUBE TP SCH ×2 (09:00→17:44)
[2018-04-03] MEDS: JEVITY 1.2 CAL 1,000 ML BOTTLE JT PRN (17:43)
--- NOTE | 2018-04-03 19:40 | NUR ---
RECEIVED TRACH PORTEX 7 PT ON MECH VENT WITH NOTED SETTINGS PER MD ORDERS. PT IS AWAKE AND ALERT. TRACH IS PATENT AND SECURED. ASTRONOMY INSTRUCTOR DONE. Q6 BREATHING TX GIVEN WITH NO ADVERSE REACTION NOTED. SX DONE PRN. VENT PLUGGED INTO RED OUTLET. ALARMS ON AND AUDIBLE. AMBU BAG @ BEDSIDE. NO RESP DISTRESS AT THIS TIME. WILL CONT TO MONITOR PT.
[2018-04-03 20:33] VITALS: BP 97/56
[2018-04-03] MEDS: POLYETHYLENE GLYCOL 3350 17 GM POWD.PACK GT SCH (21:33)
[2018-04-04] MEDS: IPRATROPIUM NEB FS 0.5 MG/2.5 ML AMPUL.NEB NEB SCH ×4 (00:40→19:49)
[2018-04-04] MEDS: ALBUTEROL FS 2.5 MG/3 ML VIAL.NEB NEB SCH ×4 (00:40→19:49)
[2018-04-04] MEDS: ERYTHROMYCIN STEARATE 250 MG TABLET GT SCH ×4 (06:46→23:33)
[2018-04-04 07:41] LABS: CREATININE 0.3 mg/dL (0.6-1.3)
[2018-04-04] MEDS: TOBRAMYCIN IV SCH (08:00)
[2018-04-04] MEDS: D5W IV SCH (08:00)
[2018-04-04] MEDS: RANITIDINE GT SCH ×2 (09:00→21:16)
[2018-04-04] MEDS: LEVETIRACETAM SOL (5 ML) 100 MG/ML UDC GT SCH ×2 (09:00→21:16)
[2018-04-04] MEDS: HYDROGEN PEROXIDE 480 ML BOTTLE TP SCH ×2 (09:00→21:16)
[2018-04-04] MEDS: VITS A AND D/WHITE PET/LANOLIN 5 GM PACKET TP SCH ×2 (09:00→21:16)
[2018-04-04] MEDS: Z GUARD REMEDY 4 OZ OINT TP SCH ×2 (09:00→21:16)
[2018-04-04] MEDS: POLYVINYL ALCOHOL 15 ML BOTTLE EACHEYE SCH ×4 (09:00→21:16)
[2018-04-04] MEDS: COD LIVER OIL/ZINC OXIDE 120 GM TUBE TP SCH ×2 (09:00→17:30)
[2018-04-04] MEDS: PROSOURCE / PROSTAT (PYXIS) 30 ML UDC JT SCH ×2 (09:00→17:30)
--- NOTE | 2018-04-04 15:20 | NUR ---
Seen and examined by Germaine Mike NP NNO given at this time.
--- NOTE | 2018-04-04 15:41 | NUR ---
PT RCVD TRACH'D ON MECHANICAL VENT WITH CHARTED SETTINGS. HHN TX GIVEN AND NO ADVERSE REACTION NOTED. SX DONE. PT TRACH PATENT AND SECURE. CUFF CHECKED VIA RN LACTATION CONSULTANT. ALARMS ARE ON VENT PLUGGED INTO RED OUTLET. AMBU BAG AT BEDSIDE. WILL CONTINUE TO MONITOR. Addendum: 04/04/18 at 1541 by JACQUELINE HENDRICKSON RT Amended: Links added.
[2018-04-04] MEDS: JEVITY 1.2 CAL 1,000 ML BOTTLE JT PRN (17:30)
[2018-04-04 19:30] VITALS: BP 142/78
--- NOTE | 2018-04-04 19:49 | NUR ---
RECEIVED TRACH PORTEX 7 PT ON MECH VENT WITH NOTED SETTINGS. PT IS AWAKE AND ALERT. TRACH IS PATENT AND SECURED. ODD JOB LABORER DONE. Q6 BREATHING TX GIVEN WITH NO ADVERSE REACTION NOTED. SX MODERATE AMOUNT OF YELLOW THICK SECRETIONS. VENT PLUGGED INTO RED OUTLET. ALARMS ON AND AUDIBLE. AMBU BAG @ BEDSIDE. NO RESP DISTRESS AT THIS TIME. WILL CONT TO MONITOR PT.
[2018-04-04 20:01] VITALS: BP 149/86
[2018-04-04] MEDS: POLYETHYLENE GLYCOL 3350 17 GM POWD.PACK GT SCH (21:16)
[2018-04-05] MEDS: IPRATROPIUM NEB FS 0.5 MG/2.5 ML AMPUL.NEB NEB SCH ×4 (01:42→19:46)
[2018-04-05] MEDS: ALBUTEROL FS 2.5 MG/3 ML VIAL.NEB NEB SCH ×4 (01:42→19:46)
[2018-04-05] MEDS: ERYTHROMYCIN STEARATE 250 MG TABLET GT SCH ×3 (05:14→17:34)
[2018-04-05 07:21] LABS: CALCIUM, SERUM 9.6 mg/dL (8.5-10.1); CREATININE 0.3 mg/dL (0.6-1.3); POTASSIUM 4.1 mmol/L (3.5-5.1)
[2018-04-05 07:56] VITALS: BP 124/56
--- NOTE | 2018-04-05 08:28 | NUR ---
RT NOTE RECEIVED TRACH PORTEX 7 PT ON MECH VENT WITH NOTED SETTINGS. PT IS AWAKE AND ALERT. TRACH IS PATENT AND SECURED. GM MOBILE DONE. Q6 BREATHING TX GIVEN WITH NO ADVERSE REACTION NOTED. SX MODERATE AMOUNT OF YELLOW THICK SECRETIONS. VENT PLUGGED INTO RED OUTLET. ALARMS ON AND AUDIBLE. AMBU BAG @ BEDSIDE. NO RESP DISTRESS AT THIS TIME. WILL CONT TO MONITOR PT.
[2018-04-05] MEDS: POLYVINYL ALCOHOL 15 ML BOTTLE EACHEYE SCH ×4 (09:44→21:41)
[2018-04-05] MEDS: VITS A AND D/WHITE PET/LANOLIN 5 GM PACKET TP SCH ×2 (09:45→21:27)
[2018-04-05] MEDS: COD LIVER OIL/ZINC OXIDE 120 GM TUBE TP SCH ×2 (09:45→17:34)
[2018-04-05] MEDS: RANITIDINE GT SCH ×2 (09:45→21:26)
[2018-04-05] MEDS: Z GUARD REMEDY 4 OZ OINT TP SCH ×2 (09:45→21:26)
[2018-04-05] MEDS: PROSOURCE / PROSTAT (PYXIS) 30 ML UDC JT SCH ×2 (09:45→17:34)
[2018-04-05] MEDS: LEVETIRACETAM SOL (5 ML) 100 MG/ML UDC GT SCH ×2 (09:45→21:26)
[2018-04-05] MEDS: HYDROGEN PEROXIDE 480 ML BOTTLE TP SCH ×2 (09:45→21:26)
--- NOTE | 2018-04-05 14:28 | NUR ---
Patient was upset and crying because his ITAB stop working. Rachel called IT and it was fixed. Addendum: 04/08/18 at 1432 by DEAN CHRISTOPHER RACHEL called patient's step mother asking for the password for the ITAB, but step mother said she did not remember.
[2018-04-05] MEDS: JEVITY 1.2 CAL 1,000 ML BOTTLE JT PRN (15:00)
[2018-04-05] MEDS: D5W IV SCH (20:00)
[2018-04-05] MEDS: TOBRAMYCIN IV SCH (20:00)
[2018-04-05 20:09] VITALS: BP 100/59
[2018-04-05] MEDS: POLYETHYLENE GLYCOL 3350 17 GM POWD.PACK GT SCH (21:27)
--- NOTE | 2018-04-05 21:34 | NUR ---
RT NOTE PATIENT RECEIVED TRACHED ON MECHANICAL VENTILATION. CUFF CHECKED VIA REELING OPERATOR. SP02 > 92%. ALARMS ON AND AUDIBLE. VENT PLUGGED INTO RED OUTLET. TX GIVEN, NO ADVERSE REACTIONS NOTED. SX DONE, MODERATE THICK WHITE SECRETIONS NOTED. PATIENT STABLE. WILL MONITOR. Addendum: 04/05/18 at 2136 by MILAN CARRASCO RT Amended: Links added.
[2018-04-06] MEDS: ALBUTEROL FS 2.5 MG/3 ML VIAL.NEB NEB SCH ×4 (01:28→19:26)
[2018-04-06] MEDS: IPRATROPIUM NEB FS 0.5 MG/2.5 ML AMPUL.NEB NEB SCH ×4 (01:28→19:26)
[2018-04-06] MEDS: ERYTHROMYCIN STEARATE 250 MG TABLET GT SCH ×5 (05:39→23:28)
[2018-04-06 08:00] VITALS: BP 108/58
[2018-04-06] MEDS: VITS A AND D/WHITE PET/LANOLIN 5 GM PACKET TP SCH ×2 (09:17→21:15)
[2018-04-06] MEDS: PROSOURCE / PROSTAT (PYXIS) 30 ML UDC JT SCH ×2 (09:18→17:53)
[2018-04-06] MEDS: Z GUARD REMEDY 4 OZ OINT TP SCH ×2 (09:18→21:15)
[2018-04-06] MEDS: HYDROGEN PEROXIDE 480 ML BOTTLE TP SCH ×2 (09:18→21:15)
[2018-04-06] MEDS: COD LIVER OIL/ZINC OXIDE 120 GM TUBE TP SCH ×2 (09:18→17:53)
[2018-04-06] MEDS: LEVETIRACETAM SOL (5 ML) 100 MG/ML UDC GT SCH ×2 (09:19→21:15)
[2018-04-06] MEDS: POLYVINYL ALCOHOL 15 ML BOTTLE EACHEYE SCH ×4 (09:20→21:14)
[2018-04-06] MEDS: RANITIDINE GT SCH ×2 (09:20→21:14)
--- NOTE | 2018-04-06 15:00 | NUR ---
Informed Dr. Evans, infectious disease that patient already completed ATB. He said that per policy, urine specimen should be recultured 24 hours after completion of ATB. Order given to reculture urine. Dr. Shafer verbalized in the past to follow policy when clearing patient on isolation. Endorsed to send urine for ESBL clearance in AM.
[2018-04-06] MEDS: JEVITY 1.2 CAL 1,000 ML BOTTLE JT PRN (17:54)
[2018-04-06 20:33] VITALS: BP 128/76
[2018-04-06] MEDS: POLYETHYLENE GLYCOL 3350 17 GM POWD.PACK GT SCH (21:15)
--- NOTE | 2018-04-06 23:49 | NUR ---
RT NOTE PATIENT WAS RECEIVED ON CONTINUOUS VENT SUPPORT ON NOTED VENT SETTINGS. CARGOMAN DONE. AMBU BAG @ BEDSIDE. Q6 BREATHING TX GIVEN WITH NO ADVERSE REACTION NOTED. SUCTION DONE PRN.TRACH TUBE PATENT AND SECURED. ALARMS ON AND AUDIBLE. NO RESPIRATORY DISTRESS NOTED AT THIS TIME. WILL CONTINUE TO MONITOR PATIENT. Addendum: 04/06/18 at 2349 by HARLEY MUNIZ RT Amended: Links added.
[2018-04-07] MEDS: IPRATROPIUM NEB FS 0.5 MG/2.5 ML AMPUL.NEB NEB SCH ×4 (01:07→18:50)
[2018-04-07] MEDS: ALBUTEROL FS 2.5 MG/3 ML VIAL.NEB NEB SCH ×4 (01:07→18:50)
[2018-04-07] MEDS: ERYTHROMYCIN STEARATE 250 MG TABLET GT SCH ×4 (05:59→23:23)
[2018-04-07 08:05] VITALS: BP 105/53
[2018-04-07] MEDS: RANITIDINE GT SCH ×2 (09:40→21:08)
[2018-04-07] MEDS: POLYVINYL ALCOHOL 15 ML BOTTLE EACHEYE SCH ×4 (09:40→21:08)
[2018-04-07] MEDS: COD LIVER OIL/ZINC OXIDE 120 GM TUBE TP SCH ×2 (09:40→17:21)
[2018-04-07] MEDS: HYDROGEN PEROXIDE 480 ML BOTTLE TP SCH ×2 (09:40→21:08)
[2018-04-07] MEDS: Z GUARD REMEDY 4 OZ OINT TP SCH ×2 (09:40→21:08)
[2018-04-07] MEDS: PROSOURCE / PROSTAT (PYXIS) 30 ML UDC JT SCH ×2 (09:40→17:21)
[2018-04-07] MEDS: VITS A AND D/WHITE PET/LANOLIN 5 GM PACKET TP SCH ×2 (09:40→21:09)
[2018-04-07] MEDS: LEVETIRACETAM SOL (5 ML) 100 MG/ML UDC GT SCH ×2 (09:40→21:08)
[2018-04-07] MEDS: JEVITY 1.2 CAL 1,000 ML BOTTLE JT PRN (17:22)
[2018-04-07 20:30] VITALS: BP 106/65
[2018-04-07] MEDS: POLYETHYLENE GLYCOL 3350 17 GM POWD.PACK GT SCH (21:09)
[2018-04-08] MEDS: ALBUTEROL FS 2.5 MG/3 ML VIAL.NEB NEB SCH ×4 (00:54→19:53)
[2018-04-08] MEDS: IPRATROPIUM NEB FS 0.5 MG/2.5 ML AMPUL.NEB NEB SCH ×4 (00:54→19:53)
[2018-04-08] MEDS: ERYTHROMYCIN STEARATE 250 MG TABLET GT SCH ×4 (06:12→23:41)
--- NOTE | 2018-04-08 07:38 | NUR ---
RT Pt received a Portex 7 trach on the vent with noted settings. Pt is awake and alert. Vent alarms are set and audible with BVM by bedside. ACCOUNTING PROFESSOR cuff pressure noted. Vent is plugged into red outlet. HHN tx given with no adverse reactions. Sx'd moderate thick pale yellow secretions. No respiratory distress noted at this time, will continue to monitor. Addendum: 04/08/18 at 0838 by MONIQUE SEWELL RT Amended: Links added.
[2018-04-08 08:08] VITALS: BP 108/68
[2018-04-08] MEDS: POLYVINYL ALCOHOL 15 ML BOTTLE EACHEYE SCH ×4 (09:36→21:15)
[2018-04-08] MEDS: LEVETIRACETAM SOL (5 ML) 100 MG/ML UDC GT SCH ×2 (09:36→21:15)
[2018-04-08] MEDS: PROSOURCE / PROSTAT (PYXIS) 30 ML UDC JT SCH ×2 (09:36→17:18)
[2018-04-08] MEDS: HYDROGEN PEROXIDE 480 ML BOTTLE TP SCH ×2 (09:36→21:15)
[2018-04-08] MEDS: VITS A AND D/WHITE PET/LANOLIN 5 GM PACKET TP SCH ×2 (09:36→21:15)
[2018-04-08] MEDS: COD LIVER OIL/ZINC OXIDE 120 GM TUBE TP SCH ×2 (09:36→17:18)
[2018-04-08] MEDS: RANITIDINE GT SCH ×2 (09:36→21:15)
[2018-04-08] MEDS: Z GUARD REMEDY 4 OZ OINT TP SCH ×2 (09:36→21:15)
--- NOTE | 2018-04-08 14:33 | NUR ---
Pt. was seeing by the podiatry Dr. Ledesma on 04/05 and an appointment was made for 04/26.
[2018-04-08 20:16] VITALS: BP 115/70
[2018-04-08] MEDS: POLYETHYLENE GLYCOL 3350 17 GM POWD.PACK GT SCH (21:15)
[2018-04-09] MEDS: ALBUTEROL FS 2.5 MG/3 ML VIAL.NEB NEB SCH ×4 (01:38→19:12)
[2018-04-09] MEDS: IPRATROPIUM NEB FS 0.5 MG/2.5 ML AMPUL.NEB NEB SCH ×4 (01:38→19:12)
[2018-04-09] MEDS: ERYTHROMYCIN STEARATE 250 MG TABLET GT SCH ×4 (05:58→23:14)
[2018-04-09 07:46] VITALS: BP 100/64
[2018-04-09] MEDS: RANITIDINE GT SCH ×2 (09:21→21:23)
[2018-04-09] MEDS: LEVETIRACETAM SOL (5 ML) 100 MG/ML UDC GT SCH ×2 (09:21→21:23)
[2018-04-09] MEDS: POLYVINYL ALCOHOL 15 ML BOTTLE EACHEYE SCH ×4 (09:21→21:23)
[2018-04-09] MEDS: HYDROGEN PEROXIDE 480 ML BOTTLE TP SCH ×2 (09:21→21:23)
[2018-04-09] MEDS: COD LIVER OIL/ZINC OXIDE 120 GM TUBE TP SCH ×2 (09:21→17:00)
[2018-04-09] MEDS: VITS A AND D/WHITE PET/LANOLIN 5 GM PACKET TP SCH ×2 (09:21→21:23)
[2018-04-09] MEDS: PROSOURCE / PROSTAT (PYXIS) 30 ML UDC JT SCH ×2 (09:21→17:00)
[2018-04-09] MEDS: Z GUARD REMEDY 4 OZ OINT TP SCH ×2 (09:21→21:23)
[2018-04-09] MEDS: JEVITY 1.2 CAL 1,000 ML BOTTLE JT PRN (17:00)
[2018-04-09 19:59] VITALS: BP 112/70
[2018-04-09] MEDS: POLYETHYLENE GLYCOL 3350 17 GM POWD.PACK GT SCH (21:23)
[2018-04-10] MEDS: IPRATROPIUM NEB FS 0.5 MG/2.5 ML AMPUL.NEB NEB SCH ×4 (01:52→19:49)
[2018-04-10] MEDS: ALBUTEROL FS 2.5 MG/3 ML VIAL.NEB NEB SCH ×4 (01:52→19:49)
[2018-04-10] MEDS: ERYTHROMYCIN STEARATE 250 MG TABLET GT SCH ×3 (06:08→17:09)
[2018-04-10 08:00] VITALS: BP 94/55
[2018-04-10] MEDS: Z GUARD REMEDY 4 OZ OINT TP SCH ×2 (09:00→21:19)
[2018-04-10] MEDS: HYDROGEN PEROXIDE 480 ML BOTTLE TP SCH ×2 (09:00→21:17)
[2018-04-10] MEDS: COD LIVER OIL/ZINC OXIDE 120 GM TUBE TP SCH ×2 (09:00→17:08)
[2018-04-10] MEDS: VITS A AND D/WHITE PET/LANOLIN 5 GM PACKET TP SCH ×2 (09:00→21:19)
--- NOTE | 2018-04-10 09:19 | NUR ---
RT RECEIVED PT ON MECH VENT WITH NOTED SETTINGS. MILITARY EXCHANGE WIRELESS MANAGER DONE AND TRACH IS SECURE. VENT ALARMS CHECKED AND AUDIBLE. VENT PLUGGED IN RED OUTLET. AMBU BAG AND SPARE TRACH NOTED HOB. B/S CHRISTIANO RHONCHI. SX WITH MOD TO LRG THK WHITE SECRETIONS. BREATHING TX GIVEN AND NO ADV REACTION. PT ON CONTINUOUS PULSE OX. PT TOLERATING SETTINGS WELL, NO SOB OR RESP DISTRESS NOTED. WILL CONTINUE TO MONITOR T/O SHIFT.
[2018-04-10] MEDS: PROSOURCE / PROSTAT (PYXIS) 30 ML UDC JT SCH ×2 (09:51→17:08)
[2018-04-10] MEDS: LEVETIRACETAM SOL (5 ML) 100 MG/ML UDC GT SCH ×2 (09:51→21:16)
[2018-04-10] MEDS: POLYVINYL ALCOHOL 15 ML BOTTLE EACHEYE SCH ×4 (09:51→21:16)
[2018-04-10] MEDS: RANITIDINE GT SCH ×2 (09:51→21:16)
[2018-04-10] MEDS: JEVITY 1.2 CAL 1,000 ML BOTTLE JT PRN (13:20)
--- NOTE | 2018-04-10 17:00 | NUR ---
Seen and examined by Germaine Mike NP NNO given. Infection Control nurse, Tarah made aware that urine culture result for ESBL clearance is negative. Per IC, patient and his environment should be cleaned before isolation acn be discontinued. Endorsed in AM to shower patient and EVS to do terminal cleaning of the room.
[2018-04-10 20:31] VITALS: BP 103/66
--- NOTE | 2018-04-10 20:53 | NUR ---
RT Pt rec'd trached on the vent with noted settings. Pt is awake and alert. Vent alarms are set and audible with BVM by bedside. PORTABLE ROUTER OPERATOR cuff pressure noted. Vent is plugged into red outlet. HHN tx given with no adverse reactions. Sx'd moderate thick pale yellow secretions. No respiratory distress noted at this time, will continue to monitor. Addendum: 04/10/18 at 2053 by KYM DUEÑAS RT Amended: Links added.
[2018-04-10] MEDS: POLYETHYLENE GLYCOL 3350 17 GM POWD.PACK GT SCH (21:19)
[2018-04-11] MEDS: ERYTHROMYCIN STEARATE 250 MG TABLET GT SCH ×5 (00:15→23:39)
[2018-04-11] MEDS: IPRATROPIUM NEB FS 0.5 MG/2.5 ML AMPUL.NEB NEB SCH ×4 (01:57→19:02)
[2018-04-11] MEDS: ALBUTEROL FS 2.5 MG/3 ML VIAL.NEB NEB SCH ×4 (01:57→19:02)
[2018-04-11 07:45] VITALS: BP 115/71
[2018-04-11] MEDS: Z GUARD REMEDY 4 OZ OINT TP SCH ×2 (09:00→21:40)
[2018-04-11] MEDS: VITS A AND D/WHITE PET/LANOLIN 5 GM PACKET TP SCH ×2 (09:00→21:40)
[2018-04-11] MEDS: HYDROGEN PEROXIDE 480 ML BOTTLE TP SCH ×2 (09:00→21:40)
[2018-04-11] MEDS: COD LIVER OIL/ZINC OXIDE 120 GM TUBE TP SCH ×2 (09:00→17:00)
[2018-04-11] MEDS: LEVETIRACETAM SOL (5 ML) 100 MG/ML UDC GT SCH ×2 (09:00→21:39)
[2018-04-11] MEDS: POLYVINYL ALCOHOL 15 ML BOTTLE EACHEYE SCH ×4 (09:00→21:39)
[2018-04-11] MEDS: RANITIDINE GT SCH ×2 (09:00→21:39)
[2018-04-11] MEDS: PROSOURCE / PROSTAT (PYXIS) 30 ML UDC JT SCH ×2 (09:00→17:00)
--- NOTE | 2018-04-11 17:14 | NUR ---
RT NOTE: PATIENT RECEIVED TRACHED ON MECHANICAL VENT. ALARMS VERIFIED AND AUDIBLE. SUCTIONED AND LAVAGED SMALL-MODERATE AMOUNT OF THICK FARLEY SECRETIONS. AMBU BAG AND NEW TRACH AT [facility].
[2018-04-11] MEDS: JEVITY 1.2 CAL 1,000 ML BOTTLE JT PRN (18:10)
[2018-04-11 20:14] VITALS: BP 129/70
[2018-04-11] MEDS: POLYETHYLENE GLYCOL 3350 17 GM POWD.PACK GT SCH (21:40)
[2018-04-12] MEDS: IPRATROPIUM NEB FS 0.5 MG/2.5 ML AMPUL.NEB NEB SCH ×4 (01:56→19:30)
[2018-04-12] MEDS: ALBUTEROL FS 2.5 MG/3 ML VIAL.NEB NEB SCH ×4 (01:56→19:30)
--- NOTE | 2018-04-12 04:28 | NUR ---
RT pt remains on [facility] vent t/o the night. No resp distress noted. svn given inline. trach secure and patent. Addendum: 04/12/18 at 0428 by ALCIDES GOODRICH RT Amended: Links added.
[2018-04-12] MEDS: ERYTHROMYCIN STEARATE 250 MG TABLET GT SCH ×3 (05:45→17:57)
--- NOTE | 2018-04-12 05:52 | NUR ---
DISCONTINUE CONTACT ISOLATION ESBL URINE PER INFECTION CONTROL PROTOCOL,MOVED PT TO ROOM 269-2.
[2018-04-12 08:07] VITALS: BP 120/72
[2018-04-12] MEDS: LEVETIRACETAM SOL (5 ML) 100 MG/ML UDC GT SCH ×2 (09:12→20:56)
[2018-04-12] MEDS: PROSOURCE / PROSTAT (PYXIS) 30 ML UDC JT SCH ×2 (09:12→17:57)
[2018-04-12] MEDS: POLYVINYL ALCOHOL 15 ML BOTTLE EACHEYE SCH ×4 (09:12→20:56)
[2018-04-12] MEDS: RANITIDINE GT SCH ×2 (09:12→20:56)
[2018-04-12] MEDS: HYDROGEN PEROXIDE 480 ML BOTTLE TP SCH ×2 (09:13→20:56)
[2018-04-12] MEDS: Z GUARD REMEDY 4 OZ OINT TP SCH ×2 (09:13→20:56)
[2018-04-12] MEDS: VITS A AND D/WHITE PET/LANOLIN 5 GM PACKET TP SCH ×2 (09:13→20:56)
[2018-04-12] MEDS: COD LIVER OIL/ZINC OXIDE 120 GM TUBE TP SCH ×2 (09:13→17:57)
--- NOTE | 2018-04-12 10:30 | NUR ---
Infection control nurse Tarah reviewed urine culture result which is negative for ESBL. She said that isolation can be discontinued as long as the room has been disinfected and patient cleaned. Resident's father made aware.
--- NOTE | 2018-04-12 11:27 | NUR ---
TSERING informed resident's step mother that IDT mtg will be on 04/19. TSERING also informed resident has a podiatry appt on April 26 and a dentist on May 06.
--- NOTE | 2018-04-12 11:42 | NUR ---
SW informed resident's step mother of resident's new room number ( 269 bed 2).
--- NOTE | 2018-04-12 17:40 | NUR ---
Received a call from Santy from Dr. Shafer's office stated that starting 04/13/2018, Dr Cleveland will take over patient's care. According to Santy Cleveland is informed. Resident's family informed.
--- NOTE | 2018-04-12 19:31 | NUR ---
Received male wade pt on a mechanical vent. Pt wade is secure. Vent is plugged into a red outlet, alarms are set and audible, and BMV is at bedside. Addendum: 04/12/18 at 1932 by ANGELO RIZVI RT Amended: Links added.
[2018-04-12 19:38] VITALS: BP 111/65
[2018-04-12] MEDS: POLYETHYLENE GLYCOL 3350 17 GM POWD.PACK GT SCH (22:08)
[2018-04-13] MEDS: ERYTHROMYCIN STEARATE 250 MG TABLET GT SCH ×4 (00:08→17:36)
[2018-04-13] MEDS: ALBUTEROL FS 2.5 MG/3 ML VIAL.NEB NEB SCH ×4 (01:38→20:01)
[2018-04-13] MEDS: IPRATROPIUM NEB FS 0.5 MG/2.5 ML AMPUL.NEB NEB SCH ×4 (01:38→20:01)
[2018-04-13 08:00] VITALS: BP 105/58
[2018-04-13] MEDS: Z GUARD REMEDY 4 OZ OINT TP SCH ×2 (09:53→21:02)
[2018-04-13] MEDS: PROSOURCE / PROSTAT (PYXIS) 30 ML UDC JT SCH ×2 (09:53→16:21)
[2018-04-13] MEDS: COD LIVER OIL/ZINC OXIDE 120 GM TUBE TP SCH ×2 (09:53→16:21)
[2018-04-13] MEDS: HYDROGEN PEROXIDE 480 ML BOTTLE TP SCH ×2 (09:53→21:02)
[2018-04-13] MEDS: LEVETIRACETAM SOL (5 ML) 100 MG/ML UDC GT SCH ×2 (09:53→21:01)
[2018-04-13] MEDS: VITS A AND D/WHITE PET/LANOLIN 5 GM PACKET TP SCH ×2 (09:53→21:02)
[2018-04-13] MEDS: POLYVINYL ALCOHOL 15 ML BOTTLE EACHEYE SCH ×4 (09:53→21:01)
[2018-04-13] MEDS: RANITIDINE GT SCH ×2 (09:53→21:01)
--- NOTE | 2018-04-13 16:26 | NUR ---
RT NOTE: PATIENT RECEIVED TRACHED ON MECHANICAL VENT. ALARMS VERIFIED AND AUDIBLE. SUCTIONED AND LAVAGED SMALL-MODERATE AMOUNT OF THICK FARLEY SECRETIONS. AMBU BAG AND NEW TRACH AT [facility].
[2018-04-13] MEDS: JEVITY 1.2 CAL 1,000 ML BOTTLE JT PRN (16:34)
[2018-04-13] MEDS: POLYETHYLENE GLYCOL 3350 17 GM POWD.PACK GT SCH (21:02)
[2018-04-13 22:46] VITALS: BP 117/69
[2018-04-14] MEDS: IPRATROPIUM NEB FS 0.5 MG/2.5 ML AMPUL.NEB NEB SCH ×4 (02:24→20:04)
[2018-04-14] MEDS: ALBUTEROL FS 2.5 MG/3 ML VIAL.NEB NEB SCH ×4 (02:24→20:05)
[2018-04-14] MEDS: ERYTHROMYCIN STEARATE 250 MG TABLET GT SCH ×5 (05:01→23:08)
--- NOTE | 2018-04-14 05:34 | NUR ---
RT RECD PT TRACH'D INTACT AND SECURED ON MECH VENT BRAULIO ORDERED SETTINGS. ALARMS ON AND AUDIBLE BAG AND MASK AT HOB TXS GIVEN BRAULIO WELL NO ADVERSE REACTION NOTED ATT SX THICK YELLOW MODERATE SECRETIONS NO RESP DISTRESS THROUGHOUT SHIFT WILL CONT TO MONITOR
[2018-04-14 07:33] VITALS: BP 111/70
[2018-04-14] MEDS: RANITIDINE GT SCH ×2 (09:00→21:10)
[2018-04-14] MEDS: Z GUARD REMEDY 4 OZ OINT TP SCH ×2 (09:00→21:10)
[2018-04-14] MEDS: HYDROGEN PEROXIDE 480 ML BOTTLE TP SCH ×2 (09:00→21:10)
[2018-04-14] MEDS: PROSOURCE / PROSTAT (PYXIS) 30 ML UDC JT SCH ×2 (09:00→16:19)
[2018-04-14] MEDS: VITS A AND D/WHITE PET/LANOLIN 5 GM PACKET TP SCH ×2 (09:00→21:10)
[2018-04-14] MEDS: COD LIVER OIL/ZINC OXIDE 120 GM TUBE TP SCH ×2 (09:00→16:19)
[2018-04-14] MEDS: POLYVINYL ALCOHOL 15 ML BOTTLE EACHEYE SCH ×4 (09:00→21:10)
[2018-04-14] MEDS: LEVETIRACETAM SOL (5 ML) 100 MG/ML UDC GT SCH ×2 (09:00→21:10)
[2018-04-14] MEDS: JEVITY 1.2 CAL 1,000 ML BOTTLE JT PRN (16:19)
[2018-04-14 19:40] VITALS: BP 115/88
--- NOTE | 2018-04-14 20:00 | NUR ---
RT PATIENT REC'D ON VENT ON NOTED SETTINGS. PT IS AWAKE AND RESPOND TO COMMANDS. NO SOB, NO RESPIRATORY DISTRESS NOTED AT THIS TIME. TRACH TUBE PATENT, SECURE, IN PLACE. AMBU BAG BY BEDSIDE, TX GIVEN WITHOUT ADVERSE REACTION, PATIENT SUCTIONED WITH SMALL THICK WHITE SECRETIONS, VENT ALARMS ON AND AUDIBLE, VENT PLUGGED IN RED OUTLET. WILL CONTINUE TO MONITOR. Addendum: 04/14/18 at 2240 by KYM DUEÑAS RT Amended: Links added.
[2018-04-14] MEDS: POLYETHYLENE GLYCOL 3350 17 GM POWD.PACK GT SCH (21:10)
[2018-04-15] MEDS: IPRATROPIUM NEB FS 0.5 MG/2.5 ML AMPUL.NEB NEB SCH ×4 (01:39→19:32)
[2018-04-15] MEDS: ALBUTEROL FS 2.5 MG/3 ML VIAL.NEB NEB SCH ×4 (01:39→19:32)
[2018-04-15] MEDS: ERYTHROMYCIN STEARATE 250 MG TABLET GT SCH ×4 (05:27→23:19)
[2018-04-15 07:46] VITALS: BP 112/74
[2018-04-15] MEDS: LEVETIRACETAM SOL (5 ML) 100 MG/ML UDC GT SCH ×2 (09:07→21:12)
[2018-04-15] MEDS: HYDROGEN PEROXIDE 480 ML BOTTLE TP SCH ×2 (09:07→21:13)
[2018-04-15] MEDS: COD LIVER OIL/ZINC OXIDE 120 GM TUBE TP SCH ×2 (09:07→16:59)
[2018-04-15] MEDS: RANITIDINE GT SCH ×2 (09:07→21:12)
[2018-04-15] MEDS: POLYVINYL ALCOHOL 15 ML BOTTLE EACHEYE SCH ×4 (09:07→21:12)
[2018-04-15] MEDS: PROSOURCE / PROSTAT (PYXIS) 30 ML UDC JT SCH ×2 (09:07→16:59)
[2018-04-15] MEDS: Z GUARD REMEDY 4 OZ OINT TP SCH ×2 (09:08→21:13)
[2018-04-15] MEDS: VITS A AND D/WHITE PET/LANOLIN 5 GM PACKET TP SCH ×2 (09:08→21:13)
[2018-04-15] MEDS: JEVITY 1.2 CAL 1,000 ML BOTTLE JT PRN (16:59)
[2018-04-15 20:06] VITALS: BP 102/66
[2018-04-15] MEDS: POLYETHYLENE GLYCOL 3350 17 GM POWD.PACK GT SCH (21:13)
--- NOTE | 2018-04-15 22:16 | NUR ---
RT RECD PT TRACHED INTACT AND SECURED ON MECH VENT BRAULIO ORDERED SETTINGS. ALARMS ON AND AUDIBLE BAG AND MASK AT HOB TXS GIVEN BRAULIO WELL NO ADVERSE REACTION NOTED ATT NO RESP DISTRESS THROUGHOUT SHIFT WILL CONT TO MONITOR
[2018-04-16] MEDS: IPRATROPIUM NEB FS 0.5 MG/2.5 ML AMPUL.NEB NEB SCH ×4 (01:00→19:30)
[2018-04-16] MEDS: ALBUTEROL FS 2.5 MG/3 ML VIAL.NEB NEB SCH ×4 (01:00→19:30)
[2018-04-16] MEDS: ERYTHROMYCIN STEARATE 250 MG TABLET GT SCH ×4 (05:44→23:40)
[2018-04-16 07:43] VITALS: BP 111/69
--- NOTE | 2018-04-16 09:00 | NUR ---
Seen and examined by Dr. Cleveland, no new order given. Continue with plan of care.
[2018-04-16] MEDS: LEVETIRACETAM SOL (5 ML) 100 MG/ML UDC GT SCH ×2 (09:39→21:03)
[2018-04-16] MEDS: COD LIVER OIL/ZINC OXIDE 120 GM TUBE TP SCH ×2 (09:39→17:12)
[2018-04-16] MEDS: PROSOURCE / PROSTAT (PYXIS) 30 ML UDC JT SCH ×2 (09:39→17:12)
[2018-04-16] MEDS: POLYVINYL ALCOHOL 15 ML BOTTLE EACHEYE SCH ×4 (09:39→21:03)
[2018-04-16] MEDS: RANITIDINE GT SCH ×2 (09:39→21:03)
[2018-04-16] MEDS: Z GUARD REMEDY 4 OZ OINT TP SCH ×2 (09:45→21:03)
[2018-04-16] MEDS: HYDROGEN PEROXIDE 480 ML BOTTLE TP SCH ×2 (09:45→21:03)
[2018-04-16] MEDS: VITS A AND D/WHITE PET/LANOLIN 5 GM PACKET TP SCH ×2 (09:45→21:03)
--- NOTE | 2018-04-16 11:16 | NUR ---
TSERING called pat. aunt Mayes and informed about this Wednesday 04/19 IDT mtg.
--- NOTE | 2018-04-16 16:37 | NUR ---
RT NOTE: PATIENT RECEIVED TRACHED ON MECHANICAL VENT. ALARMS VERIFIED AND AUDIBLE. SUCTIONED AND LAVAGED SMALL-MODERATE AMOUNT OF THICK FARLEY SECRETION. VENT PLUGGED INTO RED OUTLET. AMBU BAG AND NEW TRACH AT HOB
[2018-04-16] MEDS: JEVITY 1.2 CAL 1,000 ML BOTTLE JT PRN (17:12)
[2018-04-16 20:22] VITALS: BP 114/61
[2018-04-16] MEDS: POLYETHYLENE GLYCOL 3350 17 GM POWD.PACK GT SCH (21:03)
[2018-04-17] MEDS: ALBUTEROL FS 2.5 MG/3 ML VIAL.NEB NEB SCH ×4 (01:36→20:20)
[2018-04-17] MEDS: IPRATROPIUM NEB FS 0.5 MG/2.5 ML AMPUL.NEB NEB SCH ×4 (01:36→20:20)
[2018-04-17] MEDS: ERYTHROMYCIN STEARATE 250 MG TABLET GT SCH ×4 (05:50→23:28)
[2018-04-17 07:34] VITALS: BP 111/62
--- NOTE | 2018-04-17 07:52 | NUR ---
RT Pt received trach'd and on [facility] vent w charted settings. Vent is plugged into red outlet. Alarms are on and audible. Trach is secure and patent. Muffler Installer done. Hhn tx given and pt sx'd w no adverse reactions. No respiratory distress noted @ this time. Will continue to monitor. Addendum: 04/17/18 at 1202 by HUGH LICONA RT Amended: Links added.
[2018-04-17] MEDS: Z GUARD REMEDY 4 OZ OINT TP SCH ×2 (09:00→21:21)
[2018-04-17] MEDS: HYDROGEN PEROXIDE 480 ML BOTTLE TP SCH ×2 (09:00→21:21)
[2018-04-17] MEDS: COD LIVER OIL/ZINC OXIDE 120 GM TUBE TP SCH ×2 (09:00→17:22)
[2018-04-17] MEDS: VITS A AND D/WHITE PET/LANOLIN 5 GM PACKET TP SCH ×2 (09:00→21:21)
[2018-04-17] MEDS: RANITIDINE GT SCH ×2 (09:17→21:21)
[2018-04-17] MEDS: LEVETIRACETAM SOL (5 ML) 100 MG/ML UDC GT SCH ×2 (09:17→21:21)
[2018-04-17] MEDS: POLYVINYL ALCOHOL 15 ML BOTTLE EACHEYE SCH ×4 (09:17→21:21)
[2018-04-17] MEDS: PROSOURCE / PROSTAT (PYXIS) 30 ML UDC JT SCH ×2 (09:17→17:22)
[2018-04-17] MEDS: JEVITY 1.2 CAL 1,000 ML BOTTLE JT PRN (17:45)
--- NOTE | 2018-04-17 20:20 | NUR ---
RECEIVED TRACH PORTEX 7 PT ON MECH VENT WITH NOTED SETTINGS. PT IS AWAKE , ALERT AND FOLLOW COMMANDS. TRACH IS PATENT AND SECURED. TAR HEATER OPERATOR DONE. Q6 BREATHING TX GIVEN WITH NO ADVERSE REACTION NOTED. SX MODERATE AMOUNT OF YELLOW THICK SECRETIONS. VENT PLUGGED INTO RED OUTLET. ALARMS ON AND AUDIBLE. AMBU BAG @ BEDSIDE. NO RESP DISTRESS AT THIS TIME. WILL CONT TO MONITOR PT.
[2018-04-17 20:26] VITALS: BP 112/61
[2018-04-17] MEDS: POLYETHYLENE GLYCOL 3350 17 GM POWD.PACK GT SCH (21:21)
[2018-04-18] MEDS: IPRATROPIUM NEB FS 0.5 MG/2.5 ML AMPUL.NEB NEB SCH ×4 (01:39→19:35)
[2018-04-18] MEDS: ALBUTEROL FS 2.5 MG/3 ML VIAL.NEB NEB SCH ×4 (01:39→19:35)
[2018-04-18] MEDS: ERYTHROMYCIN STEARATE 250 MG TABLET GT SCH ×4 (05:23→23:16)
[2018-04-18 07:26] VITALS: BP 105/71
[2018-04-18] MEDS: Z GUARD REMEDY 4 OZ OINT TP SCH ×2 (09:05→21:56)
[2018-04-18] MEDS: VITS A AND D/WHITE PET/LANOLIN 5 GM PACKET TP SCH ×2 (09:05→21:56)
[2018-04-18] MEDS: RANITIDINE GT SCH ×2 (09:05→21:56)
[2018-04-18] MEDS: LEVETIRACETAM SOL (5 ML) 100 MG/ML UDC GT SCH ×2 (09:05→21:56)
[2018-04-18] MEDS: COD LIVER OIL/ZINC OXIDE 120 GM TUBE TP SCH ×2 (09:05→17:27)
[2018-04-18] MEDS: HYDROGEN PEROXIDE 480 ML BOTTLE TP SCH ×2 (09:05→21:56)
[2018-04-18] MEDS: PROSOURCE / PROSTAT (PYXIS) 30 ML UDC JT SCH ×2 (09:05→17:26)
[2018-04-18] MEDS: POLYVINYL ALCOHOL 15 ML BOTTLE EACHEYE SCH ×4 (09:05→21:56)
[2018-04-18] MEDS: JEVITY 1.2 CAL 1,000 ML BOTTLE JT PRN (19:17)
[2018-04-18 20:25] VITALS: BP 102/59
--- NOTE | 2018-04-18 21:20 | NUR ---
RT NOTE PATIENT WAS RECEIVED ON CONTINUOUS VENT SUPPORT ON NOTED VENT SETTINGS. NUCLEAR OPERATOR DONE. AMBU BAG @ BEDSIDE. Q6 BREATHING TX GIVEN WITH NO ADVERSE REACTION NOTED. SUCTION DONE PRN.TRACH TUBE PATENT AND SECURED. ALARMS ON AND AUDIBLE. NO RESPIRATORY DISTRESS NOTED AT THIS TIME. WILL CONTINUE TO MONITOR PATIENT. Addendum: 04/18/18 at 2120 by HARLEY MUNIZ RT Amended: Links added.
[2018-04-18] MEDS: POLYETHYLENE GLYCOL 3350 17 GM POWD.PACK GT SCH (21:56)
[2018-04-19] MEDS: ALBUTEROL FS 2.5 MG/3 ML VIAL.NEB NEB SCH ×4 (01:34→19:32)
[2018-04-19] MEDS: IPRATROPIUM NEB FS 0.5 MG/2.5 ML AMPUL.NEB NEB SCH ×4 (01:34→19:32)
[2018-04-19] MEDS: ERYTHROMYCIN STEARATE 250 MG TABLET GT SCH ×4 (06:43→23:41)
--- NOTE | 2018-04-19 07:06 | NUR ---
Discontinue right upper arm midline and 10 ml NS flush and dressing.
[2018-04-19] MEDS: VITS A AND D/WHITE PET/LANOLIN 5 GM PACKET TP SCH ×2 (09:00→21:32)
[2018-04-19] MEDS: Z GUARD REMEDY 4 OZ OINT TP SCH ×2 (09:00→21:32)
[2018-04-19] MEDS: RANITIDINE GT SCH ×2 (09:00→21:26)
[2018-04-19] MEDS: COD LIVER OIL/ZINC OXIDE 120 GM TUBE TP SCH ×2 (09:00→17:42)
[2018-04-19] MEDS: LEVETIRACETAM SOL (5 ML) 100 MG/ML UDC GT SCH ×2 (09:00→21:32)
[2018-04-19] MEDS: PROSOURCE / PROSTAT (PYXIS) 30 ML UDC JT SCH ×2 (09:00→17:42)
[2018-04-19] MEDS: HYDROGEN PEROXIDE 480 ML BOTTLE TP SCH ×2 (09:00→21:32)
[2018-04-19] MEDS: POLYVINYL ALCOHOL 15 ML BOTTLE EACHEYE SCH ×4 (09:00→21:26)
--- NOTE | 2018-04-19 11:29 | NUR ---
INTERDISCIPLINARY PLAN OF CARE CONFERENCE was held today. Resident's parents chose to have an individual mtg with Saydaalison when current plan of care were explained to patient's parents. Current orders as well as treatments and medications were reviewed by the team. No new orders were placed.
[2018-04-19 14:52] VITALS: BP 93/50
[2018-04-19] MEDS: JEVITY 1.2 CAL 1,000 ML BOTTLE JT PRN (17:50)
[2018-04-19 20:05] VITALS: BP 106/66
[2018-04-19] MEDS: POLYETHYLENE GLYCOL 3350 17 GM POWD.PACK GT SCH (21:32)
[2018-04-20] MEDS: IPRATROPIUM NEB FS 0.5 MG/2.5 ML AMPUL.NEB NEB SCH ×4 (01:14→19:35)
[2018-04-20] MEDS: ALBUTEROL FS 2.5 MG/3 ML VIAL.NEB NEB SCH ×4 (01:14→19:35)
--- NOTE | 2018-04-20 01:45 | NUR ---
RT NOTE PT RECEIVED ON [facility] VENT ON THE FOLLOWING NOTED SETTINGS. NO RESP DISTRESS OR SOB NOTED. PT SX'D. BREATHING TX GIVEN, NO ADVERSE REACTION NOTED. VENT IS PLUGGED INTO RED OUTLET. ALARMS ARE ON AND AUDIBLE. AMBU BAG AND SPARE TRACH ARE AT BEDSIDE. WILL CONT TO MONITOR PT. Addendum: 04/20/18 at 0145 by CHANCE MULLINS RT Amended: Links added.
[2018-04-20] MEDS: ERYTHROMYCIN STEARATE 250 MG TABLET GT SCH ×4 (05:26→23:44)
[2018-04-20 07:31] VITALS: BP 117/70
[2018-04-20] MEDS: POLYVINYL ALCOHOL 15 ML BOTTLE EACHEYE SCH ×4 (08:52→21:01)
[2018-04-20] MEDS: RANITIDINE GT SCH ×2 (08:53→21:01)
[2018-04-20] MEDS: PROSOURCE / PROSTAT (PYXIS) 30 ML UDC JT SCH ×2 (08:53→17:00)
[2018-04-20] MEDS: LEVETIRACETAM SOL (5 ML) 100 MG/ML UDC GT SCH ×2 (08:53→21:01)
[2018-04-20] MEDS: Z GUARD REMEDY 4 OZ OINT TP SCH ×2 (08:53→21:01)
[2018-04-20] MEDS: COD LIVER OIL/ZINC OXIDE 120 GM TUBE TP SCH ×2 (08:53→17:00)
[2018-04-20] MEDS: VITS A AND D/WHITE PET/LANOLIN 5 GM PACKET TP SCH ×2 (08:53→21:01)
[2018-04-20] MEDS: HYDROGEN PEROXIDE 480 ML BOTTLE TP SCH ×2 (08:53→21:01)
--- NOTE | 2018-04-20 14:20 | NUR ---
INTERDISCIPLINARY TEAM CONFERENCE (IDT) was held today. Resident's father unable to attend IDT meeting but one on one discussion was done by this nurse per family's request with patient's father and aunt. Dr. Cleveland and the interdisciplinary team reviewed the current plan of care in detail. Orders as well as treatment and medications were reviewed. NNO given. Resident no longer on isolation and he taken to shower room twice a week, family is happy with the care provided.
[2018-04-20 19:59] VITALS: BP 101/63
--- NOTE | 2018-04-20 20:08 | NUR ---
RT NOTE PT RECEIVED ON [facility] VENT ON THE FOLLOWING NOTED SETTINGS. NO RESP DISTRESS OR SOB NOTED AT THIS TIME. PT SX'D. BREATHING TX GIVEN, NO ADVERSE REACTIONS NOTED. VENT IS PLUGGED INTO RED OUTLET. ALARMS ARE ON AND AUDIBLE. AMBU BAG AND SPARE TRACH ARE AT BEDSIDE. WILL CONT TO MONITOR PT. Addendum: 04/20/18 at 2009 by CHANCE MULLINS RT Amended: Links added.
[2018-04-20] MEDS: POLYETHYLENE GLYCOL 3350 17 GM POWD.PACK GT SCH (21:01)
[2018-04-21] MEDS: IPRATROPIUM NEB FS 0.5 MG/2.5 ML AMPUL.NEB NEB SCH ×4 (01:34→19:42)
[2018-04-21] MEDS: ALBUTEROL FS 2.5 MG/3 ML VIAL.NEB NEB SCH ×4 (01:34→19:42)
[2018-04-21] MEDS: ERYTHROMYCIN STEARATE 250 MG TABLET GT SCH ×3 (05:20→17:30)
--- NOTE | 2018-04-21 07:32 | NUR ---
Male wade pt received on a mechanical vent. Pt wade is secure. Vent is plugged into a red outlet, alarms are set and audible, and BMV is at bedside. Addendum: 04/21/18 at 0733 by ANGELO RIZVI RT Amended: Links added.
[2018-04-21 07:43] VITALS: BP 98/53
[2018-04-21] MEDS: POLYVINYL ALCOHOL 15 ML BOTTLE EACHEYE SCH ×4 (09:00→21:27)
[2018-04-21] MEDS: RANITIDINE GT SCH ×2 (09:01→21:27)
[2018-04-21] MEDS: LEVETIRACETAM SOL (5 ML) 100 MG/ML UDC GT SCH ×2 (09:01→21:27)
[2018-04-21] MEDS: PROSOURCE / PROSTAT (PYXIS) 30 ML UDC JT SCH ×2 (09:01→17:30)
[2018-04-21] MEDS: COD LIVER OIL/ZINC OXIDE 120 GM TUBE TP SCH ×2 (09:02→17:30)
[2018-04-21] MEDS: HYDROGEN PEROXIDE 480 ML BOTTLE TP SCH ×2 (09:02→21:27)
[2018-04-21] MEDS: VITS A AND D/WHITE PET/LANOLIN 5 GM PACKET TP SCH ×2 (09:03→21:27)
[2018-04-21] MEDS: Z GUARD REMEDY 4 OZ OINT TP SCH ×2 (09:03→21:27)
[2018-04-21] MEDS: JEVITY 1.2 CAL 1,000 ML BOTTLE JT PRN (15:10)
[2018-04-21 19:42] VITALS: BP 105/68
--- NOTE | 2018-04-21 21:17 | NUR ---
RT NOTE PATIENT WAS RECEIVED ON CONTINUOUS VENT SUPPORT ON NOTED VENT SETTINGS. HHN INLINE TREATMENT WAS GIVEN, NO ADVERSE REACTION NOTED ,PRN SUCTION WAS DONE. TRACH TUBE PATENT AND SECURED. ALARMS ON AND AUDIBLE. WILL CONTINUE TO MONITOR PATIENT Addendum: 04/21/18 at 2117 by HARLEY MUNIZ RT Amended: Links added.
[2018-04-21] MEDS: POLYETHYLENE GLYCOL 3350 17 GM POWD.PACK GT SCH (21:27)
[2018-04-22] MEDS: ERYTHROMYCIN STEARATE 250 MG TABLET GT SCH ×5 (00:08→23:20)
[2018-04-22] MEDS: IPRATROPIUM NEB FS 0.5 MG/2.5 ML AMPUL.NEB NEB SCH ×4 (01:47→20:14)
[2018-04-22] MEDS: ALBUTEROL FS 2.5 MG/3 ML VIAL.NEB NEB SCH ×4 (01:47→20:14)
[2018-04-22] MEDS: Z GUARD REMEDY 4 OZ OINT TP SCH ×2 (09:39→21:09)
[2018-04-22] MEDS: HYDROGEN PEROXIDE 480 ML BOTTLE TP SCH ×2 (09:39→21:09)
[2018-04-22] MEDS: PROSOURCE / PROSTAT (PYXIS) 30 ML UDC JT SCH ×2 (09:39→16:56)
[2018-04-22] MEDS: RANITIDINE GT SCH ×2 (09:39→21:09)
[2018-04-22] MEDS: COD LIVER OIL/ZINC OXIDE 120 GM TUBE TP SCH ×2 (09:39→16:57)
[2018-04-22] MEDS: LEVETIRACETAM SOL (5 ML) 100 MG/ML UDC GT SCH ×2 (09:39→21:09)
[2018-04-22] MEDS: VITS A AND D/WHITE PET/LANOLIN 5 GM PACKET TP SCH ×2 (09:39→21:09)
[2018-04-22] MEDS: POLYVINYL ALCOHOL 15 ML BOTTLE EACHEYE SCH ×4 (09:39→21:09)
[2018-04-22 11:03] VITALS: BP 97/51
[2018-04-22] MEDS: JEVITY 1.2 CAL 1,000 ML BOTTLE JT PRN (16:54)
[2018-04-22 20:04] VITALS: BP 112/53
[2018-04-22] MEDS: POLYETHYLENE GLYCOL 3350 17 GM POWD.PACK GT SCH (21:09)
[2018-04-23] MEDS: ALBUTEROL FS 2.5 MG/3 ML VIAL.NEB NEB SCH ×4 (01:35→20:26)
[2018-04-23] MEDS: IPRATROPIUM NEB FS 0.5 MG/2.5 ML AMPUL.NEB NEB SCH ×4 (01:35→20:26)
[2018-04-23] MEDS: ERYTHROMYCIN STEARATE 250 MG TABLET GT SCH ×4 (05:53→23:36)
[2018-04-23 07:40] VITALS: BP 107/62
[2018-04-23] MEDS: Z GUARD REMEDY 4 OZ OINT TP SCH ×2 (09:00→21:11)
[2018-04-23] MEDS: VITS A AND D/WHITE PET/LANOLIN 5 GM PACKET TP SCH ×2 (09:00→21:11)
[2018-04-23] MEDS: HYDROGEN PEROXIDE 480 ML BOTTLE TP SCH ×2 (09:00→21:11)
[2018-04-23] MEDS: COD LIVER OIL/ZINC OXIDE 120 GM TUBE TP SCH ×2 (09:00→16:44)
[2018-04-23] MEDS: POLYVINYL ALCOHOL 15 ML BOTTLE EACHEYE SCH ×4 (09:07→21:11)
[2018-04-23] MEDS: RANITIDINE GT SCH ×2 (09:07→21:11)
[2018-04-23] MEDS: PROSOURCE / PROSTAT (PYXIS) 30 ML UDC JT SCH ×2 (09:07→16:44)
[2018-04-23] MEDS: LEVETIRACETAM SOL (5 ML) 100 MG/ML UDC GT SCH ×2 (09:07→21:11)
--- NOTE | 2018-04-23 09:30 | NUR ---
Seen and examined by Dr. Cleveland, no new order given.
[2018-04-23] MEDS: JEVITY 1.2 CAL 1,000 ML BOTTLE JT PRN (14:57)
[2018-04-23 20:32] VITALS: BP 103/66
[2018-04-23] MEDS: POLYETHYLENE GLYCOL 3350 17 GM POWD.PACK GT SCH (21:12)
[2018-04-24] MEDS: IPRATROPIUM NEB FS 0.5 MG/2.5 ML AMPUL.NEB NEB SCH ×4 (02:03→19:58)
[2018-04-24] MEDS: ALBUTEROL FS 2.5 MG/3 ML VIAL.NEB NEB SCH ×4 (02:03→19:58)
[2018-04-24] MEDS: ERYTHROMYCIN STEARATE 250 MG TABLET GT SCH ×3 (06:07→18:00)
[2018-04-24 08:01] VITALS: BP 109/77
[2018-04-24] MEDS: POLYVINYL ALCOHOL 15 ML BOTTLE EACHEYE SCH ×4 (09:17→21:15)
[2018-04-24] MEDS: RANITIDINE GT SCH ×2 (09:17→21:15)
[2018-04-24] MEDS: COD LIVER OIL/ZINC OXIDE 120 GM TUBE TP SCH ×2 (09:17→17:00)
[2018-04-24] MEDS: PROSOURCE / PROSTAT (PYXIS) 30 ML UDC JT SCH ×2 (09:17→17:00)
[2018-04-24] MEDS: LEVETIRACETAM SOL (5 ML) 100 MG/ML UDC GT SCH ×2 (09:17→21:15)
[2018-04-24] MEDS: Z GUARD REMEDY 4 OZ OINT TP SCH ×2 (09:18→21:15)
[2018-04-24] MEDS: VITS A AND D/WHITE PET/LANOLIN 5 GM PACKET TP SCH ×2 (09:18→21:15)
[2018-04-24] MEDS: HYDROGEN PEROXIDE 480 ML BOTTLE TP SCH ×2 (09:18→21:15)
--- NOTE | 2018-04-24 19:59 | NUR ---
RT NOTE: RECEIVED TRACH PT ON [facility] VENT ON NOTED SETTINGS PER MD ORDERS. TRACH IS PATENT AND SECURED. OPHTHALMOLOGIST DONE. Q6 BREATHING TX GIVEN WITH NO ADVERSE REACTION NOTED. SX DONE PRN. VENT PLUGGED INTO RED OUTLET. ALARMS ON AND AUDIBLE. RAGHU BAG @ BEDSIDE. NO RESP DISTRESS AT THIS TIME. WILL CONT TO MONITOR PT. Addendum: 04/25/18 at 0230 by CIRILO LOZOYA RT Amended: Links added.
[2018-04-24] MEDS: POLYETHYLENE GLYCOL 3350 17 GM POWD.PACK GT SCH (21:16)
[2018-04-25] MEDS: ERYTHROMYCIN STEARATE 250 MG TABLET GT SCH ×5 (00:27→23:44)
[2018-04-25] MEDS: ALBUTEROL FS 2.5 MG/3 ML VIAL.NEB NEB SCH ×4 (01:41→19:44)
[2018-04-25] MEDS: IPRATROPIUM NEB FS 0.5 MG/2.5 ML AMPUL.NEB NEB SCH ×4 (01:41→19:44)
[2018-04-25 07:53] VITALS: BP 126/77
[2018-04-25] MEDS: Z GUARD REMEDY 4 OZ OINT TP SCH ×2 (08:52→20:10)
[2018-04-25] MEDS: LEVETIRACETAM SOL (5 ML) 100 MG/ML UDC GT SCH ×2 (08:52→20:10)
[2018-04-25] MEDS: RANITIDINE GT SCH ×2 (08:52→20:09)
[2018-04-25] MEDS: VITS A AND D/WHITE PET/LANOLIN 5 GM PACKET TP SCH ×2 (08:52→20:10)
[2018-04-25] MEDS: PROSOURCE / PROSTAT (PYXIS) 30 ML UDC JT SCH ×2 (08:52→17:00)
[2018-04-25] MEDS: COD LIVER OIL/ZINC OXIDE 120 GM TUBE TP SCH ×2 (08:52→17:00)
[2018-04-25] MEDS: HYDROGEN PEROXIDE 480 ML BOTTLE TP SCH ×2 (08:52→20:10)
[2018-04-25] MEDS: POLYVINYL ALCOHOL 15 ML BOTTLE EACHEYE SCH ×4 (08:52→20:09)
[2018-04-25] MEDS: JEVITY 1.2 CAL 1,000 ML BOTTLE JT PRN (18:57)
--- NOTE | 2018-04-25 20:00 | NUR ---
Seen by XAVI JIN.
[2018-04-25 20:22] VITALS: BP 119/46
[2018-04-25] MEDS: POLYETHYLENE GLYCOL 3350 17 GM POWD.PACK GT SCH (21:12)
[2018-04-26] MEDS: IPRATROPIUM NEB FS 0.5 MG/2.5 ML AMPUL.NEB NEB SCH ×4 (01:35→19:22)
[2018-04-26] MEDS: ALBUTEROL FS 2.5 MG/3 ML VIAL.NEB NEB SCH ×4 (01:35→19:22)
[2018-04-26] MEDS: ERYTHROMYCIN STEARATE 250 MG TABLET GT SCH ×3 (05:25→18:10)
[2018-04-26] MEDS: RANITIDINE GT SCH ×2 (08:48→21:01)
[2018-04-26] MEDS: POLYVINYL ALCOHOL 15 ML BOTTLE EACHEYE SCH ×4 (08:48→21:01)
[2018-04-26] MEDS: PROSOURCE / PROSTAT (PYXIS) 30 ML UDC JT SCH ×2 (08:48→17:00)
[2018-04-26] MEDS: LEVETIRACETAM SOL (5 ML) 100 MG/ML UDC GT SCH ×2 (08:48→21:01)
[2018-04-26] MEDS: COD LIVER OIL/ZINC OXIDE 120 GM TUBE TP SCH ×2 (09:00→17:00)
[2018-04-26] MEDS: VITS A AND D/WHITE PET/LANOLIN 5 GM PACKET TP SCH ×2 (09:00→21:02)
[2018-04-26] MEDS: HYDROGEN PEROXIDE 480 ML BOTTLE TP SCH ×2 (09:00→21:02)
[2018-04-26] MEDS: Z GUARD REMEDY 4 OZ OINT TP SCH ×2 (09:00→21:03)
--- NOTE | 2018-04-26 09:22 | NUR ---
pt rec'd trached on [facility] vent on ac mode. no resp distress or sob noted. trach patent and secured. sx'd for thick mod amt of pale yellow secretions. alarms are set and audible. vent plugged into red outlet. ambu bag and back up trach bedside. will continue to monitor. Addendum: 04/26/18 at 0923 by STELLA DALAL RT Amended: Links added.
--- NOTE | 2018-04-26 10:13 | NUR ---
Seen and examined by COMB FIXER Germaine Mike, no new order given. Resident taken to the shower room with 2 person assist, connected to ventilator with close supervision by RT. No episode of respiratory distress.
--- NOTE | 2018-04-26 11:44 | NUR ---
SW met with patient's step mother and father today to inform them about an inappropriate hand gesture patient made to one of subacute RIPENING ROOM OPERATOR. Step-mother translated the conversation to father who does not speak Turkmen very well and told SW they would address this behavior with patient.
--- NOTE | 2018-04-26 19:25 | NUR ---
Male wade pt received on a mechanical vent. Pt wade is secure. Vent is plugged into a red outlet, alarms are set and audible, and BMV is at bedside. Addendum: 04/26/18 at 1926 by ANGELO RIZVI RT Amended: Links added.
[2018-04-26 20:24] VITALS: BP 107/58
[2018-04-26] MEDS: POLYETHYLENE GLYCOL 3350 17 GM POWD.PACK GT SCH (21:02)
[2018-04-26] MEDS: NYSTATIN TOP POWDER 15 GM BOTTLE TP SCH (21:02)
[2018-04-27] MEDS: ERYTHROMYCIN STEARATE 250 MG TABLET GT SCH ×5 (00:51→23:49)
[2018-04-27] MEDS: ALBUTEROL FS 2.5 MG/3 ML VIAL.NEB NEB SCH ×4 (01:59→19:13)
[2018-04-27] MEDS: IPRATROPIUM NEB FS 0.5 MG/2.5 ML AMPUL.NEB NEB SCH ×4 (01:59→19:13)
[2018-04-27] MEDS: JEVITY 1.2 CAL 1,000 ML BOTTLE JT PRN (03:48)
[2018-04-27 07:48] VITALS: BP 97/58
[2018-04-27] MEDS: RANITIDINE GT SCH ×2 (09:47→21:09)
[2018-04-27] MEDS: PROSOURCE / PROSTAT (PYXIS) 30 ML UDC JT SCH ×2 (09:47→17:42)
[2018-04-27] MEDS: COD LIVER OIL/ZINC OXIDE 120 GM TUBE TP SCH ×2 (09:47→17:42)
[2018-04-27] MEDS: POLYVINYL ALCOHOL 15 ML BOTTLE EACHEYE SCH ×4 (09:47→21:09)
[2018-04-27] MEDS: LEVETIRACETAM SOL (5 ML) 100 MG/ML UDC GT SCH ×2 (09:47→21:09)
[2018-04-27] MEDS: NYSTATIN TOP POWDER 15 GM BOTTLE TP SCH ×2 (09:49→21:09)
[2018-04-27] MEDS: Z GUARD REMEDY 4 OZ OINT TP SCH ×2 (09:49→21:09)
[2018-04-27] MEDS: HYDROGEN PEROXIDE 480 ML BOTTLE TP SCH ×2 (09:49→21:09)
[2018-04-27] MEDS: VITS A AND D/WHITE PET/LANOLIN 5 GM PACKET TP SCH ×2 (09:50→21:10)
--- NOTE | 2018-04-27 11:15 | NUR ---
[employer] SALES MANAGER Reported that patient has skin issue, assessed right upper inner thigh, noted excoriation, no bleeding noted at this time. No pain noted. Took picture per facility protocol, with tx order, noted and carried out. Reinforced to CNAs to keep off pressure to affected site (R upper inner thigh) at all times. Provide good sarah care q shift. Patient resting in bed, closely monitored.
[2018-04-27 21:02] VITALS: BP 105/65
[2018-04-27] MEDS: NEOMY SULF/BACITRAC ZN/POLY 15 GM TUBE TP SCH (21:09)
[2018-04-27] MEDS: POLYETHYLENE GLYCOL 3350 17 GM POWD.PACK GT SCH (21:10)
--- NOTE | 2018-04-27 23:22 | NUR ---
PATIENT RECEIVED ON MECHANICAL VENTILATION SUPPORT WITH SETTINGS OF AC 14, 450 VT, 40%, +0. SUCTIONED FOR MINIMAL, THICK, YELLOW SECRETIONS. GIVEN IN-LINE TREATMENTS WITH NO ADVERSE REACTIONS. AMBU BAG AT BEDSIDE. VENT AND PULSE OXIMETER ALARMS AUDIBLE AND VISIBLE. VENT PLUGGED INTO RED OUTLET. TRACH JUAN CHANGED. Addendum: 04/27/18 at 2324 by MALLY NGUYEN RT Amended: Links added.
[2018-04-28] MEDS: IPRATROPIUM NEB FS 0.5 MG/2.5 ML AMPUL.NEB NEB SCH ×4 (00:43→19:51)
[2018-04-28] MEDS: ALBUTEROL FS 2.5 MG/3 ML VIAL.NEB NEB SCH ×4 (00:43→19:51)
[2018-04-28] MEDS: JEVITY 1.2 CAL 1,000 ML BOTTLE JT PRN (04:09)
[2018-04-28] MEDS: ERYTHROMYCIN STEARATE 250 MG TABLET GT SCH ×4 (05:09→23:33)
[2018-04-28 08:59] VITALS: BP 97/63
[2018-04-28] MEDS: POLYVINYL ALCOHOL 15 ML BOTTLE EACHEYE SCH ×4 (09:57→20:14)
[2018-04-28] MEDS: LEVETIRACETAM SOL (5 ML) 100 MG/ML UDC GT SCH ×2 (09:58→20:15)
[2018-04-28] MEDS: PROSOURCE / PROSTAT (PYXIS) 30 ML UDC JT SCH ×2 (09:58→17:20)
[2018-04-28] MEDS: VITS A AND D/WHITE PET/LANOLIN 5 GM PACKET TP SCH ×2 (09:58→20:15)
[2018-04-28] MEDS: NEOMY SULF/BACITRAC ZN/POLY 15 GM TUBE TP SCH ×2 (09:58→20:15)
[2018-04-28] MEDS: COD LIVER OIL/ZINC OXIDE 120 GM TUBE TP SCH ×2 (09:58→17:20)
[2018-04-28] MEDS: NYSTATIN TOP POWDER 15 GM BOTTLE TP SCH ×2 (09:58→20:15)
[2018-04-28] MEDS: HYDROGEN PEROXIDE 480 ML BOTTLE TP SCH ×2 (09:58→20:15)
[2018-04-28] MEDS: RANITIDINE GT SCH ×2 (09:58→20:15)
[2018-04-28] MEDS: Z GUARD REMEDY 4 OZ OINT TP SCH ×2 (09:58→20:15)
--- NOTE | 2018-04-28 18:15 | NUR ---
Notified Dr. Cleveland, patient's HR with episode below 50 (48-50) especially when he is asleep. Dr. Cleveland reviewed his medications, patient not on any cardiac/or B/P meds. No new order given.
[2018-04-28 20:07] VITALS: BP 113/74
[2018-04-28] MEDS: POLYETHYLENE GLYCOL 3350 17 GM POWD.PACK GT SCH (22:35)
[2018-04-29] MEDS: ALBUTEROL FS 2.5 MG/3 ML VIAL.NEB NEB SCH ×4 (01:14→19:51)
[2018-04-29] MEDS: IPRATROPIUM NEB FS 0.5 MG/2.5 ML AMPUL.NEB NEB SCH ×4 (01:14→19:51)
[2018-04-29] MEDS: ERYTHROMYCIN STEARATE 250 MG TABLET GT SCH ×3 (05:09→17:34)
[2018-04-29] MEDS: JEVITY 1.2 CAL 1,000 ML BOTTLE JT PRN (05:36)
[2018-04-29 07:37] VITALS: BP 101/55
[2018-04-29] MEDS: PROSOURCE / PROSTAT (PYXIS) 30 ML UDC JT SCH ×2 (09:31→16:34)
[2018-04-29] MEDS: POLYVINYL ALCOHOL 15 ML BOTTLE EACHEYE SCH ×4 (09:31→21:10)
[2018-04-29] MEDS: COD LIVER OIL/ZINC OXIDE 120 GM TUBE TP SCH ×2 (09:31→16:34)
[2018-04-29] MEDS: RANITIDINE GT SCH ×2 (09:31→21:11)
[2018-04-29] MEDS: HYDROGEN PEROXIDE 480 ML BOTTLE TP SCH ×2 (09:31→21:11)
[2018-04-29] MEDS: LEVETIRACETAM SOL (5 ML) 100 MG/ML UDC GT SCH ×2 (09:31→21:11)
[2018-04-29] MEDS: VITS A AND D/WHITE PET/LANOLIN 5 GM PACKET TP SCH ×2 (09:31→21:11)
[2018-04-29] MEDS: NYSTATIN TOP POWDER 15 GM BOTTLE TP SCH ×2 (09:31→21:11)
[2018-04-29] MEDS: Z GUARD REMEDY 4 OZ OINT TP SCH ×2 (09:31→21:11)
[2018-04-29] MEDS: NEOMY SULF/BACITRAC ZN/POLY 15 GM TUBE TP SCH ×2 (09:31→21:11)
--- NOTE | 2018-04-29 10:34 | NUR ---
SW followed up with resident's stepmother about the previous conversation SW had with her about resident's behavior. Step-mother said she talked to resident but he said he had done "nothing wrong". SW thanked step-mom for addressing this with resident.
[2018-04-29 21:05] VITALS: BP 105/72
[2018-04-29] MEDS: POLYETHYLENE GLYCOL 3350 17 GM POWD.PACK GT SCH (21:11)
[2018-04-29] MEDS: Z GUARD REMEDY 2 OZ OINT TP SCH (21:11)
[2018-04-30] MEDS: ERYTHROMYCIN STEARATE 250 MG TABLET GT SCH ×4 (00:09→17:51)
[2018-04-30] MEDS: ALBUTEROL FS 2.5 MG/3 ML VIAL.NEB NEB SCH ×4 (01:42→20:09)
[2018-04-30] MEDS: IPRATROPIUM NEB FS 0.5 MG/2.5 ML AMPUL.NEB NEB SCH ×4 (01:42→20:09)
[2018-04-30 07:47] VITALS: BP 116/69
[2018-04-30] MEDS: COD LIVER OIL/ZINC OXIDE 120 GM TUBE TP SCH ×2 (08:45→17:51)
[2018-04-30] MEDS: PROSOURCE / PROSTAT (PYXIS) 30 ML UDC JT SCH ×2 (08:45→17:50)
[2018-04-30] MEDS: RANITIDINE GT SCH ×2 (08:45→20:10)
[2018-04-30] MEDS: POLYVINYL ALCOHOL 15 ML BOTTLE EACHEYE SCH ×4 (08:45→20:10)
[2018-04-30] MEDS: LEVETIRACETAM SOL (5 ML) 100 MG/ML UDC GT SCH ×2 (08:45→20:10)
[2018-04-30] MEDS: HYDROGEN PEROXIDE 480 ML BOTTLE TP SCH ×2 (08:46→20:10)
[2018-04-30] MEDS: NEOMY SULF/BACITRAC ZN/POLY 15 GM TUBE TP SCH ×2 (08:46→20:10)
[2018-04-30] MEDS: VITS A AND D/WHITE PET/LANOLIN 5 GM PACKET TP SCH ×2 (08:46→20:11)
[2018-04-30] MEDS: NYSTATIN TOP POWDER 15 GM BOTTLE TP SCH ×2 (08:46→20:10)
[2018-04-30] MEDS: Z GUARD REMEDY 2 OZ OINT TP SCH ×2 (08:46→20:10)
[2018-04-30] MEDS: Z GUARD REMEDY 4 OZ OINT TP SCH ×2 (08:46→20:10)
[2018-04-30] MEDS: JEVITY 1.2 CAL 1,000 ML BOTTLE JT PRN (17:58)
[2018-04-30 20:02] VITALS: BP 113/63
[2018-04-30] MEDS: POLYETHYLENE GLYCOL 3350 17 GM POWD.PACK GT SCH (21:46)
[2018-05-01] MEDS: ERYTHROMYCIN STEARATE 250 MG TABLET GT SCH ×5 (00:44→23:35)
[2018-05-01] MEDS: IPRATROPIUM NEB FS 0.5 MG/2.5 ML AMPUL.NEB NEB SCH ×4 (00:45→19:50)
[2018-05-01] MEDS: ALBUTEROL FS 2.5 MG/3 ML VIAL.NEB NEB SCH ×4 (00:45→19:50)
[2018-05-01] MEDS: POLYVINYL ALCOHOL 15 ML BOTTLE EACHEYE SCH ×4 (08:42→20:21)
[2018-05-01] MEDS: PROSOURCE / PROSTAT (PYXIS) 30 ML UDC JT SCH ×2 (08:42→16:48)
[2018-05-01] MEDS: COD LIVER OIL/ZINC OXIDE 120 GM TUBE TP SCH ×2 (08:42→16:48)
[2018-05-01] MEDS: RANITIDINE GT SCH ×2 (08:42→20:21)
[2018-05-01] MEDS: LEVETIRACETAM SOL (5 ML) 100 MG/ML UDC GT SCH ×2 (08:42→20:21)
[2018-05-01 08:46] VITALS: BP 105/65
[2018-05-01] MEDS: Z GUARD REMEDY 2 OZ OINT TP SCH ×2 (09:00→20:21)
[2018-05-01] MEDS: NEOMY SULF/BACITRAC ZN/POLY 15 GM TUBE TP SCH ×2 (09:00→20:21)
[2018-05-01] MEDS: VITS A AND D/WHITE PET/LANOLIN 5 GM PACKET TP SCH ×2 (09:00→20:22)
[2018-05-01] MEDS: NYSTATIN TOP POWDER 15 GM BOTTLE TP SCH ×2 (09:00→20:21)
[2018-05-01] MEDS: Z GUARD REMEDY 4 OZ OINT TP SCH ×2 (09:00→20:22)
[2018-05-01] MEDS: HYDROGEN PEROXIDE 480 ML BOTTLE TP SCH ×2 (09:00→20:21)
[2018-05-01] MEDS: JEVITY 1.2 CAL 1,000 ML BOTTLE JT PRN (17:09)
--- NOTE | 2018-05-01 19:50 | NUR ---
RT NOTE: RECEIVED TRACH PT ON [facility] VENT ON NOTED SETTINGS PER MD ORDERS. TRACH IS PATENT AND SECURED. WEDGER MACHINE DONE. Q6 BREATHING TX GIVEN WITH NO ADVERSE REACTION NOTED. SX DONE PRN. VENT PLUGGED INTO RED OUTLET. ALARMS ON AND AUDIBLE. RAGHU BAG @ BEDSIDE. NO RESP DISTRESS AT THIS TIME. WILL CONT TO MONITOR PT. Addendum: 05/02/18 at 0238 by CIRILO LOZOYA RT Amended: Links added.
[2018-05-01 20:52] VITALS: BP 101/66
[2018-05-01] MEDS: POLYETHYLENE GLYCOL 3350 17 GM POWD.PACK GT SCH (21:52)
[2018-05-02] MEDS: IPRATROPIUM NEB FS 0.5 MG/2.5 ML AMPUL.NEB NEB SCH ×4 (02:06→19:50)
[2018-05-02] MEDS: ALBUTEROL FS 2.5 MG/3 ML VIAL.NEB NEB SCH ×4 (02:06→19:50)
[2018-05-02] MEDS: ERYTHROMYCIN STEARATE 250 MG TABLET GT SCH ×4 (05:17→23:19)
[2018-05-02 08:06] VITALS: BP 95/60
[2018-05-02] MEDS: Z GUARD REMEDY 4 OZ OINT TP SCH ×2 (08:44→21:11)
[2018-05-02] MEDS: HYDROGEN PEROXIDE 480 ML BOTTLE TP SCH ×2 (08:44→21:10)
[2018-05-02] MEDS: NEOMY SULF/BACITRAC ZN/POLY 15 GM TUBE TP SCH ×2 (08:44→21:10)
[2018-05-02] MEDS: Z GUARD REMEDY 2 OZ OINT TP SCH ×2 (08:44→21:10)
[2018-05-02] MEDS: NYSTATIN TOP POWDER 15 GM BOTTLE TP SCH (08:44)
[2018-05-02] MEDS: LEVETIRACETAM SOL (5 ML) 100 MG/ML UDC GT SCH ×2 (08:44→21:10)
[2018-05-02] MEDS: RANITIDINE GT SCH ×2 (08:44→21:10)
[2018-05-02] MEDS: PROSOURCE / PROSTAT (PYXIS) 30 ML UDC JT SCH ×2 (08:44→16:36)
[2018-05-02] MEDS: VITS A AND D/WHITE PET/LANOLIN 5 GM PACKET TP SCH ×2 (08:44→21:11)
[2018-05-02] MEDS: POLYVINYL ALCOHOL 15 ML BOTTLE EACHEYE SCH ×4 (08:44→21:09)
[2018-05-02] MEDS: COD LIVER OIL/ZINC OXIDE 120 GM TUBE TP SCH ×2 (08:44→16:36)
--- NOTE | 2018-05-02 15:50 | NUR ---
Seen by XAVI Mike. She ordered to change treatment on left and right axillae from Nystatin powder to Econazole cream. Addendum: 05/02/18 at 1854 by AMA EL RN Pt still noted with redness on left and right axillae.
[2018-05-02] MEDS ORDERED: ECONAZOLE NITRATE 15 GM TUBE TP SCH ×2 (16:10→16:11)
--- NOTE | 2018-05-02 16:28 | NUR ---
RT NOTE: PATIENT RECEIVED TRACHED ON MECHANICAL VENT. ALARMS VERIFIED AND AUDIBLE. VENT PLUGGED INTO RED OUTLET. AMBU BAG AND NEW TRACH AT [facility].
[2018-05-02 20:29] VITALS: BP 100/61
--- NOTE | 2018-05-02 21:03 | NUR ---
RT NOTE PATIENT WAS RECEIVED ON CONTINUOUS VENT SUPPORT ON NOTED VENT SETTINGS. HHN INLINE TREATMENT WAS GIVEN, NO ADVERSE REACTION NOTED ,PRN SUCTION WAS DONE. TRACH TUBE PATENT AND SECURED. ALARMS ON AND AUDIBLE. JEREMY AND CHARISSA DC AT [facility]. WILL CONTINUE TO MONITOR PATIENT Addendum: 05/02/18 at 2103 by HARLEY MUNIZ RT Amended: Links added.
[2018-05-02] MEDS: POLYETHYLENE GLYCOL 3350 17 GM POWD.PACK GT SCH (21:11)
[2018-05-03] MEDS: IPRATROPIUM NEB FS 0.5 MG/2.5 ML AMPUL.NEB NEB SCH ×4 (01:23→19:45)
[2018-05-03] MEDS: ALBUTEROL FS 2.5 MG/3 ML VIAL.NEB NEB SCH ×4 (01:23→19:46)
[2018-05-03] MEDS: ERYTHROMYCIN STEARATE 250 MG TABLET GT SCH ×3 (05:49→17:56)
[2018-05-03] MEDS: VITS A AND D/WHITE PET/LANOLIN 5 GM PACKET TP SCH ×2 (09:00→21:05)
[2018-05-03] MEDS: HYDROGEN PEROXIDE 480 ML BOTTLE TP SCH ×2 (09:00→21:05)
[2018-05-03] MEDS: RANITIDINE GT SCH ×2 (09:00→21:05)
[2018-05-03] MEDS: LEVETIRACETAM SOL (5 ML) 100 MG/ML UDC GT SCH ×2 (09:00→21:05)
[2018-05-03] MEDS: Z GUARD REMEDY 4 OZ OINT TP SCH ×2 (09:00→21:05)
[2018-05-03] MEDS: NEOMY SULF/BACITRAC ZN/POLY 15 GM TUBE TP SCH ×2 (09:00→21:05)
[2018-05-03] MEDS: PROSOURCE / PROSTAT (PYXIS) 30 ML UDC JT SCH ×2 (09:00→16:45)
[2018-05-03] MEDS: POLYVINYL ALCOHOL 15 ML BOTTLE EACHEYE SCH ×4 (09:00→21:05)
[2018-05-03] MEDS: COD LIVER OIL/ZINC OXIDE 120 GM TUBE TP SCH ×2 (09:00→16:45)
[2018-05-03] MEDS: Z GUARD REMEDY 2 OZ OINT TP SCH ×2 (09:00→21:05)
[2018-05-03 11:07] VITALS: BP 121/77
[2018-05-03] MEDS: JEVITY 1.2 CAL 1,000 ML BOTTLE JT PRN (16:45)
[2018-05-03 19:44] VITALS: BP 109/59
--- NOTE | 2018-05-03 20:55 | NUR ---
PATIENT RECEIVED ON MECHANICAL VENTILATION. VENT PLUGGED INTO RED OUTLET. CUFF CHECKED VIA MEDIA SERVICES SPECIALIST. ALARMS ON AND AUDIBLE. TX GIVEN, NO ADVERSE REACTIONS NOTED. NO DISTRESS NOTED. SX DONE, MODERATE THICK WHITE SECRETIONS NOTED. PATIENT STABLE. Addendum: 05/03/18 at 2055 by MILAN CARRASCO RT Amended: Links added.
[2018-05-03] MEDS ORDERED: ECONAZOLE NITRATE 15 GM TUBE TP SCH (21:00)
[2018-05-03] MEDS: POLYETHYLENE GLYCOL 3350 17 GM POWD.PACK GT SCH (21:05)
[2018-05-03] MEDS: CLOTRIMAZOLE 1% 15 GM TUBE TP SCH (21:05)
[2018-05-04] MEDS: ERYTHROMYCIN STEARATE 250 MG TABLET GT SCH ×4 (00:26→17:02)
[2018-05-04] MEDS: ALBUTEROL FS 2.5 MG/3 ML VIAL.NEB NEB SCH ×4 (01:57→19:37)
[2018-05-04] MEDS: IPRATROPIUM NEB FS 0.5 MG/2.5 ML AMPUL.NEB NEB SCH ×4 (01:57→19:37)
[2018-05-04 07:34] VITALS: BP 117/72
[2018-05-04] MEDS: PROSOURCE / PROSTAT (PYXIS) 30 ML UDC JT SCH ×2 (09:40→17:02)
[2018-05-04] MEDS: RANITIDINE GT SCH ×2 (09:40→20:46)
[2018-05-04] MEDS: POLYVINYL ALCOHOL 15 ML BOTTLE EACHEYE SCH ×4 (09:40→20:46)
[2018-05-04] MEDS: LEVETIRACETAM SOL (5 ML) 100 MG/ML UDC GT SCH ×2 (09:40→20:46)
[2018-05-04] MEDS: Z GUARD REMEDY 4 OZ OINT TP SCH ×2 (09:41→20:47)
[2018-05-04] MEDS: HYDROGEN PEROXIDE 480 ML BOTTLE TP SCH ×2 (09:41→20:47)
[2018-05-04] MEDS: Z GUARD REMEDY 2 OZ OINT TP SCH ×2 (09:41→20:47)
[2018-05-04] MEDS: COD LIVER OIL/ZINC OXIDE 120 GM TUBE TP SCH ×2 (09:41→17:02)
[2018-05-04] MEDS: NEOMY SULF/BACITRAC ZN/POLY 15 GM TUBE TP SCH (09:41)
[2018-05-04] MEDS: CLOTRIMAZOLE 1% 15 GM TUBE TP SCH ×2 (09:41→20:47)
[2018-05-04] MEDS: VITS A AND D/WHITE PET/LANOLIN 5 GM PACKET TP SCH ×2 (09:42→20:47)
[2018-05-04] MEDS: JEVITY 1.2 CAL 1,000 ML BOTTLE JT PRN (15:17)
[2018-05-04 19:58] VITALS: BP 100/74
[2018-05-04] MEDS: POLYETHYLENE GLYCOL 3350 17 GM POWD.PACK GT SCH (20:47)
--- NOTE | 2018-05-04 20:52 | NUR ---
RT NOTE PATIENT WAS RECEIVED ON CONTINUOUS VENT SUPPORT ON NOTED VENT SETTINGS. HHN INLINE TREATMENT WAS GIVEN, NO ADVERSE REACTION NOTED ,PRN SUCTION WAS DONE. TRACH TUBE PATENT AND SECURED. ALARMS ON AND AUDIBLE. JEREMY AND CHARISSA DC AT [facility]. WILL CONTINUE TO MONITOR PATIENT Addendum: 05/04/18 at 2052 by HARLEY MUNIZ RT Amended: Links added.
[2018-05-05] MEDS: ERYTHROMYCIN STEARATE 250 MG TABLET GT SCH ×5 (00:44→23:39)
[2018-05-05] MEDS: ALBUTEROL FS 2.5 MG/3 ML VIAL.NEB NEB SCH ×4 (01:33→19:48)
[2018-05-05] MEDS: IPRATROPIUM NEB FS 0.5 MG/2.5 ML AMPUL.NEB NEB SCH ×4 (01:33→19:48)
[2018-05-05 07:42] VITALS: BP 94/61
[2018-05-05] MEDS: RANITIDINE GT SCH ×2 (09:21→21:06)
[2018-05-05] MEDS: POLYVINYL ALCOHOL 15 ML BOTTLE EACHEYE SCH ×4 (09:21→21:06)
[2018-05-05] MEDS: COD LIVER OIL/ZINC OXIDE 120 GM TUBE TP SCH ×2 (09:22→17:41)
[2018-05-05] MEDS: LEVETIRACETAM SOL (5 ML) 100 MG/ML UDC GT SCH ×2 (09:22→21:06)
[2018-05-05] MEDS: PROSOURCE / PROSTAT (PYXIS) 30 ML UDC JT SCH ×2 (09:22→17:41)
[2018-05-05] MEDS: VITS A AND D/WHITE PET/LANOLIN 5 GM PACKET TP SCH ×2 (09:22→21:07)
[2018-05-05] MEDS: Z GUARD REMEDY 4 OZ OINT TP SCH ×2 (09:22→21:07)
[2018-05-05] MEDS: Z GUARD REMEDY 2 OZ OINT TP SCH ×2 (09:22→21:06)
[2018-05-05] MEDS: CLOTRIMAZOLE 1% 15 GM TUBE TP SCH ×2 (09:22→21:06)
[2018-05-05] MEDS: HYDROGEN PEROXIDE 480 ML BOTTLE TP SCH ×2 (09:22→21:06)
--- NOTE | 2018-05-05 19:48 | NUR ---
RT NOTE: RECEIVED TRACH PT ON [facility] VENT ON NOTED SETTINGS PER MD ORDERS. TRACH IS PATENT AND SECURED. MACHINE TOOL REBUILDER DONE. Q6 BREATHING TX GIVEN WITH NO ADVERSE REACTION NOTED. SX DONE PRN. VENT PLUGGED INTO RED OUTLET. ALARMS ON AND AUDIBLE. RAGHU BAG @ BEDSIDE. NO RESP DISTRESS AT THIS TIME. WILL CONT TO MONITOR PT. Addendum: 05/06/18 at 0402 by CIRILO LOZOYA RT Amended: Links added.
[2018-05-05 20:39] VITALS: BP 110/57
[2018-05-05] MEDS: JEVITY 1.2 CAL 1,000 ML BOTTLE JT PRN (21:07)
[2018-05-05] MEDS: POLYETHYLENE GLYCOL 3350 17 GM POWD.PACK GT SCH (21:07)
[2018-05-06] MEDS: IPRATROPIUM NEB FS 0.5 MG/2.5 ML AMPUL.NEB NEB SCH ×4 (01:41→20:06)
[2018-05-06] MEDS: ALBUTEROL FS 2.5 MG/3 ML VIAL.NEB NEB SCH ×4 (01:41→20:06)
[2018-05-06] MEDS: ERYTHROMYCIN STEARATE 250 MG TABLET GT SCH ×3 (05:19→17:02)
[2018-05-06] MEDS: RANITIDINE GT SCH ×2 (09:05→20:14)
[2018-05-06] MEDS: COD LIVER OIL/ZINC OXIDE 120 GM TUBE TP SCH ×2 (09:05→17:02)
[2018-05-06] MEDS: PROSOURCE / PROSTAT (PYXIS) 30 ML UDC JT SCH ×2 (09:05→17:02)
[2018-05-06] MEDS: LEVETIRACETAM SOL (5 ML) 100 MG/ML UDC GT SCH ×2 (09:05→20:14)
[2018-05-06] MEDS: CLOTRIMAZOLE 1% 15 GM TUBE TP SCH ×2 (09:05→20:14)
[2018-05-06] MEDS: VITS A AND D/WHITE PET/LANOLIN 5 GM PACKET TP SCH ×2 (09:05→20:14)
[2018-05-06] MEDS: Z GUARD REMEDY 2 OZ OINT TP SCH ×2 (09:05→20:14)
[2018-05-06] MEDS: HYDROGEN PEROXIDE 480 ML BOTTLE TP SCH ×2 (09:05→20:14)
[2018-05-06] MEDS: POLYVINYL ALCOHOL 15 ML BOTTLE EACHEYE SCH ×4 (09:05→20:13)
[2018-05-06] MEDS: Z GUARD REMEDY 4 OZ OINT TP SCH ×2 (09:05→20:14)
[2018-05-06 10:25] VITALS: BP 110/67
[2018-05-06 20:48] VITALS: BP 99/62
[2018-05-06] MEDS: POLYETHYLENE GLYCOL 3350 17 GM POWD.PACK GT SCH (21:59)
[2018-05-07] MEDS: IPRATROPIUM NEB FS 0.5 MG/2.5 ML AMPUL.NEB NEB SCH ×4 (01:53→20:14)
[2018-05-07] MEDS: ALBUTEROL FS 2.5 MG/3 ML VIAL.NEB NEB SCH ×4 (01:53→20:14)
[2018-05-07] MEDS: ERYTHROMYCIN STEARATE 250 MG TABLET GT SCH ×5 (05:05→23:19)
--- NOTE | 2018-05-07 05:10 | NUR ---
PT REC'D TRACHED ON [facility] VENT ON AC MODE. NO RESP DISTRESS NOTED. TRACH PATENT AND SECURED. SX'D FOR SMALL AMT OF PALE YELLOW SECRETIONS. ALARMS ARE SET AND AUDIBLE. VENT PLUGGED INTO RED OUTLET. AMBU BAG BEDSIDE. WILL CONTINUE TO MONITOR. Addendum: 05/07/18 at 0511 by STELLA DALAL RT Amended: Links added.
--- NOTE | 2018-05-07 07:39 | NUR ---
Received male wade pt on a mechanical vent. Pt wade is secure. Vent is plugged into a red outlet, alarms are set and audible, and BMV is at bedside. Addendum: 05/07/18 at 0739 by ANGELO RIZVI RT Amended: Links added.
[2018-05-07] MEDS: Z GUARD REMEDY 2 OZ OINT TP SCH ×2 (08:57→20:11)
[2018-05-07] MEDS: LEVETIRACETAM SOL (5 ML) 100 MG/ML UDC GT SCH ×2 (08:57→20:10)
[2018-05-07] MEDS: POLYVINYL ALCOHOL 15 ML BOTTLE EACHEYE SCH ×4 (08:57→20:10)
[2018-05-07] MEDS: PROSOURCE / PROSTAT (PYXIS) 30 ML UDC JT SCH ×2 (08:57→17:00)
[2018-05-07] MEDS: Z GUARD REMEDY 4 OZ OINT TP SCH ×2 (08:57→20:11)
[2018-05-07] MEDS: HYDROGEN PEROXIDE 480 ML BOTTLE TP SCH ×2 (08:57→20:11)
[2018-05-07] MEDS: COD LIVER OIL/ZINC OXIDE 120 GM TUBE TP SCH ×2 (08:57→17:00)
[2018-05-07] MEDS: RANITIDINE GT SCH ×2 (08:57→20:10)
[2018-05-07] MEDS: CLOTRIMAZOLE 1% 15 GM TUBE TP SCH ×2 (08:57→20:11)
[2018-05-07] MEDS: VITS A AND D/WHITE PET/LANOLIN 5 GM PACKET TP SCH ×2 (08:57→20:11)
[2018-05-07 11:33] VITALS: BP 101/63
[2018-05-07 20:24] VITALS: BP 102/65
[2018-05-07] MEDS: POLYETHYLENE GLYCOL 3350 17 GM POWD.PACK GT SCH (21:47)
[2018-05-08] MEDS: IPRATROPIUM NEB FS 0.5 MG/2.5 ML AMPUL.NEB NEB SCH ×4 (00:43→20:07)
[2018-05-08] MEDS: ALBUTEROL FS 2.5 MG/3 ML VIAL.NEB NEB SCH ×4 (00:43→20:07)
[2018-05-08] MEDS: ERYTHROMYCIN STEARATE 250 MG TABLET GT SCH ×4 (05:11→23:17)
[2018-05-08 07:52] VITALS: BP 119/70
[2018-05-08] MEDS: CLOTRIMAZOLE 1% 15 GM TUBE TP SCH ×2 (08:39→20:12)
[2018-05-08] MEDS: POLYVINYL ALCOHOL 15 ML BOTTLE EACHEYE SCH ×4 (08:39→20:11)
[2018-05-08] MEDS: VITS A AND D/WHITE PET/LANOLIN 5 GM PACKET TP SCH ×2 (08:39→20:12)
[2018-05-08] MEDS: Z GUARD REMEDY 4 OZ OINT TP SCH ×2 (08:39→20:12)
[2018-05-08] MEDS: Z GUARD REMEDY 2 OZ OINT TP SCH ×2 (08:39→20:12)
[2018-05-08] MEDS: PROSOURCE / PROSTAT (PYXIS) 30 ML UDC JT SCH ×2 (08:39→16:24)
[2018-05-08] MEDS: COD LIVER OIL/ZINC OXIDE 120 GM TUBE TP SCH ×2 (08:39→16:24)
[2018-05-08] MEDS: RANITIDINE GT SCH ×2 (08:39→20:12)
[2018-05-08] MEDS: LEVETIRACETAM SOL (5 ML) 100 MG/ML UDC GT SCH ×2 (08:39→20:12)
[2018-05-08] MEDS: HYDROGEN PEROXIDE 480 ML BOTTLE TP SCH ×2 (08:39→20:12)
--- NOTE | 2018-05-08 17:40 | NUR ---
RT Pt received trach'd and on [facility] vent w charted settings. Vent is plugged into red outlet w ambubag @ [employer]. Alarms are set and audible. Trach is secure and patent.. Hhn tx given and pt sx'd w no adverse reactions. No respiratory distress noted t/o shift. Will continue to monitor. Addendum: 05/08/18 at 1740 by HUGH LICONA RT Amended: Links added.
[2018-05-08 19:53] VITALS: BP 120/55
--- NOTE | 2018-05-08 20:52 | NUR ---
PT RCVD TRACH'D ON MECHANICAL WITH CHARTED SETTINGS. TX GIVEN AND NO ADVERSE REACTION NOTED. SX DONE. PT TRACH PATENT AND SECURE. VENT PLUGGED INTO RED OUTLET. ALARMS ARE SET AND AUDIBLE. AMBU BAG AT BEDSIDE. WILL CONTINUE TO MONITOR. Addendum: 05/08/18 at 2051 by STANFORD PETERS RT Amended: Links added.
[2018-05-08] MEDS: POLYETHYLENE GLYCOL 3350 17 GM POWD.PACK GT SCH (22:05)
[2018-05-09] MEDS: IPRATROPIUM NEB FS 0.5 MG/2.5 ML AMPUL.NEB NEB SCH ×4 (01:08→19:59)
[2018-05-09] MEDS: ALBUTEROL FS 2.5 MG/3 ML VIAL.NEB NEB SCH ×4 (01:08→19:59)
[2018-05-09] MEDS: ERYTHROMYCIN STEARATE 250 MG TABLET GT SCH ×4 (05:03→23:11)
[2018-05-09] MEDS: JEVITY 1.2 CAL 1,000 ML BOTTLE JT PRN (05:54)
[2018-05-09 07:46] VITALS: BP 104/66
[2018-05-09] MEDS: COD LIVER OIL/ZINC OXIDE 120 GM TUBE TP SCH ×2 (08:11→17:04)
[2018-05-09] MEDS: CLOTRIMAZOLE 1% 15 GM TUBE TP SCH ×2 (08:11→21:13)
[2018-05-09] MEDS: VITS A AND D/WHITE PET/LANOLIN 5 GM PACKET TP SCH ×2 (08:11→21:13)
[2018-05-09] MEDS: HYDROGEN PEROXIDE 480 ML BOTTLE TP SCH ×2 (08:11→21:13)
[2018-05-09] MEDS: LEVETIRACETAM SOL (5 ML) 100 MG/ML UDC GT SCH ×2 (08:11→21:13)
[2018-05-09] MEDS: PROSOURCE / PROSTAT (PYXIS) 30 ML UDC JT SCH ×2 (08:11→17:04)
[2018-05-09] MEDS: Z GUARD REMEDY 2 OZ OINT TP SCH ×2 (08:11→21:13)
[2018-05-09] MEDS: Z GUARD REMEDY 4 OZ OINT TP SCH ×2 (08:11→21:13)
[2018-05-09] MEDS: RANITIDINE GT SCH ×2 (08:11→21:13)
[2018-05-09] MEDS: POLYVINYL ALCOHOL 15 ML BOTTLE EACHEYE SCH ×4 (08:11→21:13)
[2018-05-09 19:52] VITALS: BP 98/59
--- NOTE | 2018-05-09 20:39 | NUR ---
PT RCVD TRACH'D ON MECHANICAL WITH CHARTED SETTINGS. TX GIVEN AND NO ADVERSE REACTION NOTED. SX DONE. PT TRACH PATENT AND SECURE. VENT PLUGGED INTO RED OUTLET. ALARMS ARE SET AND AUDIBLE. AMBU BAG AT BEDSIDE. WILL CONTINUE TO MONITOR. Addendum: 05/09/18 at 2038 by STANFORD PETERS RT Amended: Links added.
[2018-05-09] MEDS: POLYETHYLENE GLYCOL 3350 17 GM POWD.PACK GT SCH (21:13)
[2018-05-10] MEDS: IPRATROPIUM NEB FS 0.5 MG/2.5 ML AMPUL.NEB NEB SCH ×4 (01:31→19:55)
[2018-05-10] MEDS: ALBUTEROL FS 2.5 MG/3 ML VIAL.NEB NEB SCH ×4 (01:31→19:55)
[2018-05-10] MEDS: ERYTHROMYCIN STEARATE 250 MG TABLET GT SCH ×4 (05:18→23:13)
[2018-05-10 07:40] VITALS: BP 101/71
--- NOTE | 2018-05-10 07:41 | NUR ---
Male trach pt received unlabored on a mechanical vent. Pt wade is secure. Vent is plugged into a red outlet, alarms are set and audible, and BMV is at bedside. Addendum: 05/10/18 at 0742 by ANGELO RIZVI RT Amended: Links added.
[2018-05-10] MEDS: Z GUARD REMEDY 4 OZ OINT TP SCH ×2 (08:36→20:46)
[2018-05-10] MEDS: CLOTRIMAZOLE 1% 15 GM TUBE TP SCH ×2 (08:36→20:46)
[2018-05-10] MEDS: POLYVINYL ALCOHOL 15 ML BOTTLE EACHEYE SCH ×4 (08:36→20:46)
[2018-05-10] MEDS: PROSOURCE / PROSTAT (PYXIS) 30 ML UDC JT SCH ×2 (08:36→16:24)
[2018-05-10] MEDS: COD LIVER OIL/ZINC OXIDE 120 GM TUBE TP SCH ×2 (08:36→16:24)
[2018-05-10] MEDS: HYDROGEN PEROXIDE 480 ML BOTTLE TP SCH ×2 (08:36→20:46)
[2018-05-10] MEDS: Z GUARD REMEDY 2 OZ OINT TP SCH ×2 (08:36→20:46)
[2018-05-10] MEDS: LEVETIRACETAM SOL (5 ML) 100 MG/ML UDC GT SCH ×2 (08:36→20:46)
[2018-05-10] MEDS: RANITIDINE GT SCH ×2 (08:36→20:46)
[2018-05-10] MEDS: VITS A AND D/WHITE PET/LANOLIN 5 GM PACKET TP SCH ×2 (08:36→20:47)
[2018-05-10] MEDS: BISACODYL SUPP (10 MG) 10 MG/SUPP.RECT SUPP.RECT RC PRN (16:24)
[2018-05-10] MEDS: JEVITY 1.2 CAL 1,000 ML BOTTLE JT PRN (16:24)
[2018-05-10 20:08] VITALS: BP 94/53
[2018-05-10] MEDS: POLYETHYLENE GLYCOL 3350 17 GM POWD.PACK GT SCH (22:36)
[2018-05-11] MEDS: IPRATROPIUM NEB FS 0.5 MG/2.5 ML AMPUL.NEB NEB SCH ×4 (01:48→19:56)
[2018-05-11] MEDS: ALBUTEROL FS 2.5 MG/3 ML VIAL.NEB NEB SCH ×4 (01:48→19:56)
[2018-05-11] MEDS: ERYTHROMYCIN STEARATE 250 MG TABLET GT SCH ×4 (06:04→23:35)
[2018-05-11 08:00] VITALS: BP 101/60
[2018-05-11] MEDS: HYDROGEN PEROXIDE 480 ML BOTTLE TP SCH ×2 (09:00→20:19)
[2018-05-11] MEDS: Z GUARD REMEDY 4 OZ OINT TP SCH ×2 (09:00→20:20)
[2018-05-11] MEDS: VITS A AND D/WHITE PET/LANOLIN 5 GM PACKET TP SCH ×2 (09:00→20:20)
[2018-05-11] MEDS: Z GUARD REMEDY 2 OZ OINT TP SCH ×2 (09:00→20:20)
[2018-05-11] MEDS: CLOTRIMAZOLE 1% 15 GM TUBE TP SCH ×2 (09:00→20:20)
--- NOTE | 2018-05-11 09:06 | NUR ---
RT PATIENT REC'D TRACH'D ON MECHANICAL VENT WITH CHARTED SETTINGS. NO SOB NOTED AT THIS TIME. TX GIVEN AND NO ADVERSE REACTION NOTED. SX DONE. PT TRACH PATENT AND SECURE. VENT PLUGGED INTO RED OUTLET. ALARMS ARE SET AND AUDIBLE. AMBU BAG AT BEDSIDE. WILL CONTINUE TO MONITOR. Addendum: 05/11/18 at 0907 by KYM DUEÑAS RT Amended: Links added.
[2018-05-11] MEDS: POLYVINYL ALCOHOL 15 ML BOTTLE EACHEYE SCH ×4 (09:30→20:19)
[2018-05-11] MEDS: RANITIDINE GT SCH ×2 (09:31→20:19)
[2018-05-11] MEDS: COD LIVER OIL/ZINC OXIDE 120 GM TUBE TP SCH ×2 (09:31→17:13)
[2018-05-11] MEDS: PROSOURCE / PROSTAT (PYXIS) 30 ML UDC JT SCH ×2 (09:31→17:13)
[2018-05-11] MEDS: LEVETIRACETAM SOL (5 ML) 100 MG/ML UDC GT SCH ×2 (09:31→20:19)
[2018-05-11 20:07] VITALS: BP 90/50
[2018-05-11] MEDS: POLYETHYLENE GLYCOL 3350 17 GM POWD.PACK GT SCH (22:01)
[2018-05-12] MEDS: IPRATROPIUM NEB FS 0.5 MG/2.5 ML AMPUL.NEB NEB SCH ×4 (01:33→20:10)
[2018-05-12] MEDS: ALBUTEROL FS 2.5 MG/3 ML VIAL.NEB NEB SCH ×4 (01:34→20:10)
[2018-05-12] MEDS: ERYTHROMYCIN STEARATE 250 MG TABLET GT SCH ×3 (06:08→17:05)
[2018-05-12 07:46] VITALS: BP 142/49
[2018-05-12] MEDS: PROSOURCE / PROSTAT (PYXIS) 30 ML UDC JT SCH ×2 (08:03→16:00)
[2018-05-12] MEDS: LEVETIRACETAM SOL (5 ML) 100 MG/ML UDC GT SCH ×2 (08:03→20:03)
[2018-05-12] MEDS: RANITIDINE GT SCH ×2 (08:03→20:02)
[2018-05-12] MEDS: POLYVINYL ALCOHOL 15 ML BOTTLE EACHEYE SCH ×4 (08:03→20:01)
[2018-05-12] MEDS: Z GUARD REMEDY 4 OZ OINT TP SCH ×2 (08:04→20:03)
[2018-05-12] MEDS: HYDROGEN PEROXIDE 480 ML BOTTLE TP SCH ×2 (08:04→20:03)
[2018-05-12] MEDS: COD LIVER OIL/ZINC OXIDE 120 GM TUBE TP SCH ×2 (08:04→16:00)
[2018-05-12] MEDS: CLOTRIMAZOLE 1% 15 GM TUBE TP SCH ×2 (08:04→20:03)
[2018-05-12] MEDS: VITS A AND D/WHITE PET/LANOLIN 5 GM PACKET TP SCH ×2 (08:04→20:03)
[2018-05-12] MEDS: Z GUARD REMEDY 2 OZ OINT TP SCH ×2 (08:04→20:03)
[2018-05-12] MEDS: JEVITY 1.2 CAL 1,000 ML BOTTLE JT PRN (14:47)
[2018-05-12 20:05] VITALS: BP 100/60
[2018-05-12] MEDS: POLYETHYLENE GLYCOL 3350 17 GM POWD.PACK GT SCH (21:54)
[2018-05-13] MEDS: ERYTHROMYCIN STEARATE 250 MG TABLET GT SCH ×4 (00:28→17:45)
[2018-05-13] MEDS: ALBUTEROL FS 2.5 MG/3 ML VIAL.NEB NEB SCH ×4 (01:09→19:52)
[2018-05-13] MEDS: IPRATROPIUM NEB FS 0.5 MG/2.5 ML AMPUL.NEB NEB SCH ×4 (01:09→19:52)
--- NOTE | 2018-05-13 07:31 | NUR ---
Male trach pt received unlabored on a mechanical vent. Pt trach is secure. Vent is plugged into a red outlet, alarms are set and audible, and BMV is at bedside. Addendum: 05/13/18 at 0732 by ANGELO RIZVI RT Amended: Links added.
[2018-05-13] MEDS: HYDROGEN PEROXIDE 480 ML BOTTLE TP SCH ×2 (09:00→20:06)
[2018-05-13] MEDS: VITS A AND D/WHITE PET/LANOLIN 5 GM PACKET TP SCH ×2 (09:00→20:07)
[2018-05-13] MEDS: Z GUARD REMEDY 4 OZ OINT TP SCH ×2 (09:00→20:06)
[2018-05-13] MEDS: COD LIVER OIL/ZINC OXIDE 120 GM TUBE TP SCH ×2 (09:00→17:47)
[2018-05-13] MEDS: Z GUARD REMEDY 2 OZ OINT TP SCH (09:00)
[2018-05-13] MEDS: CLOTRIMAZOLE 1% 15 GM TUBE TP SCH ×2 (09:00→20:06)
[2018-05-13] MEDS: PROSOURCE / PROSTAT (PYXIS) 30 ML UDC JT SCH ×2 (09:06→17:45)
[2018-05-13] MEDS: RANITIDINE GT SCH ×2 (09:06→20:06)
[2018-05-13] MEDS: POLYVINYL ALCOHOL 15 ML BOTTLE EACHEYE SCH ×4 (09:06→20:04)
[2018-05-13] MEDS: LEVETIRACETAM SOL (5 ML) 100 MG/ML UDC GT SCH ×2 (09:06→20:06)
[2018-05-13 10:46] VITALS: BP 92/49
[2018-05-13 19:51] VITALS: BP 103/68
[2018-05-13] MEDS: POLYETHYLENE GLYCOL 3350 17 GM POWD.PACK GT SCH (22:20)
[2018-05-14] MEDS: ERYTHROMYCIN STEARATE 250 MG TABLET GT SCH ×4 (00:24→17:15)
[2018-05-14] MEDS: IPRATROPIUM NEB FS 0.5 MG/2.5 ML AMPUL.NEB NEB SCH ×4 (00:59→20:01)
[2018-05-14] MEDS: ALBUTEROL FS 2.5 MG/3 ML VIAL.NEB NEB SCH ×4 (00:59→20:01)
[2018-05-14] MEDS: JEVITY 1.2 CAL 1,000 ML BOTTLE JT PRN (05:17)
[2018-05-14 07:29] VITALS: BP 92/47
[2018-05-14] MEDS: VITS A AND D/WHITE PET/LANOLIN 5 GM PACKET TP SCH ×2 (09:00→20:33)
[2018-05-14] MEDS: Z GUARD REMEDY 4 OZ OINT TP SCH ×2 (09:00→20:33)
[2018-05-14] MEDS: CLOTRIMAZOLE 1% 15 GM TUBE TP SCH ×2 (09:00→20:33)
[2018-05-14] MEDS: COD LIVER OIL/ZINC OXIDE 120 GM TUBE TP SCH ×2 (09:00→17:15)
[2018-05-14] MEDS: HYDROGEN PEROXIDE 480 ML BOTTLE TP SCH ×2 (09:00→20:33)
[2018-05-14] MEDS: POLYVINYL ALCOHOL 15 ML BOTTLE EACHEYE SCH ×4 (09:50→20:32)
[2018-05-14] MEDS: RANITIDINE GT SCH ×2 (09:51→20:33)
[2018-05-14] MEDS: LEVETIRACETAM SOL (5 ML) 100 MG/ML UDC GT SCH ×2 (09:51→20:33)
[2018-05-14] MEDS: PROSOURCE / PROSTAT (PYXIS) 30 ML UDC JT SCH ×2 (09:51→17:15)
--- NOTE | 2018-05-14 17:24 | NUR ---
ELIDIA Almaraz reported that pt touch her buttocks and when she turned around to look at him, pt immediately hid his hand under the blanket. Educated the pt that his touching the staff's buttocks is inappropriate. Called pt's aunt Sugey to inform her about pt's behavior. She said she will discuss it with pt's father and will have him talk to the pt about his behavior.
[2018-05-14 21:50] VITALS: BP 112/62
[2018-05-14] MEDS: POLYETHYLENE GLYCOL 3350 17 GM POWD.PACK GT SCH (22:32)
[2018-05-15] MEDS: ERYTHROMYCIN STEARATE 250 MG TABLET GT SCH ×5 (00:22→23:55)
[2018-05-15] MEDS: ALBUTEROL FS 2.5 MG/3 ML VIAL.NEB NEB SCH ×4 (01:29→20:06)
[2018-05-15] MEDS: IPRATROPIUM NEB FS 0.5 MG/2.5 ML AMPUL.NEB NEB SCH ×4 (01:29→20:06)
[2018-05-15 07:38] VITALS: BP 102/65
[2018-05-15] MEDS: VITS A AND D/WHITE PET/LANOLIN 5 GM PACKET TP SCH ×2 (09:00→20:09)
[2018-05-15] MEDS: Z GUARD REMEDY 4 OZ OINT TP SCH ×2 (09:00→20:09)
[2018-05-15] MEDS: HYDROGEN PEROXIDE 480 ML BOTTLE TP SCH ×2 (09:00→20:09)
[2018-05-15] MEDS: CLOTRIMAZOLE 1% 15 GM TUBE TP SCH ×2 (09:00→20:09)
[2018-05-15] MEDS: COD LIVER OIL/ZINC OXIDE 120 GM TUBE TP SCH ×2 (09:00→17:42)
[2018-05-15] MEDS: POLYVINYL ALCOHOL 15 ML BOTTLE EACHEYE SCH ×4 (09:13→20:08)
[2018-05-15] MEDS: LEVETIRACETAM SOL (5 ML) 100 MG/ML UDC GT SCH ×2 (09:14→20:09)
[2018-05-15] MEDS: PROSOURCE / PROSTAT (PYXIS) 30 ML UDC JT SCH ×2 (09:14→17:41)
[2018-05-15] MEDS: RANITIDINE GT SCH ×2 (09:15→20:09)
--- NOTE | 2018-05-15 11:30 | NUR ---
SW spoke with patient's step mother about patient's behavior ( touching nurse's buttock ). Sw asked mom to translate the conversation to patient who only speaks [place] Korean and told patient that it is inappropriate to touch any of of [facility] staff's body parts).
[2018-05-15 21:04] VITALS: BP 98/65
[2018-05-15] MEDS: POLYETHYLENE GLYCOL 3350 17 GM POWD.PACK GT SCH (21:53)
[2018-05-16] MEDS: JEVITY 1.2 CAL 1,000 ML BOTTLE JT PRN (01:25)
[2018-05-16] MEDS: IPRATROPIUM NEB FS 0.5 MG/2.5 ML AMPUL.NEB NEB SCH ×4 (01:29→19:45)
[2018-05-16] MEDS: ALBUTEROL FS 2.5 MG/3 ML VIAL.NEB NEB SCH ×4 (01:29→19:45)
--- NOTE | 2018-05-16 01:39 | NUR ---
PT RCVD TRACH'D ON MECHANICAL WITH CHARTED SETTINGS. TX GIVEN AND NO ADVERSE REACTION NOTED. SX DONE. PT TRACH PATENT AND SECURE. VENT PLUGGED INTO RED OUTLET. ALARMS ARE SET AND AUDIBLE. AMBU BAG AT BEDSIDE. WILL CONTINUE TO MONITOR. Addendum: 05/16/18 at 0139 by STANFORD PETERS RT Amended: Links added.
[2018-05-16] MEDS: ERYTHROMYCIN STEARATE 250 MG TABLET GT SCH ×4 (05:21→23:57)
[2018-05-16 07:36] VITALS: BP 110/55
[2018-05-16] MEDS: RANITIDINE GT SCH ×2 (08:04→21:18)
[2018-05-16] MEDS: POLYVINYL ALCOHOL 15 ML BOTTLE EACHEYE SCH ×4 (08:04→21:18)
[2018-05-16] MEDS: LEVETIRACETAM SOL (5 ML) 100 MG/ML UDC GT SCH ×2 (08:04→21:18)
[2018-05-16] MEDS: PROSOURCE / PROSTAT (PYXIS) 30 ML UDC JT SCH ×2 (08:05→16:41)
[2018-05-16] MEDS: Z GUARD REMEDY 4 OZ OINT TP SCH ×2 (09:00→21:18)
[2018-05-16] MEDS: CLOTRIMAZOLE 1% 15 GM TUBE TP SCH ×2 (09:00→21:18)
[2018-05-16] MEDS: HYDROGEN PEROXIDE 480 ML BOTTLE TP SCH ×2 (09:00→21:18)
[2018-05-16] MEDS: VITS A AND D/WHITE PET/LANOLIN 5 GM PACKET TP SCH ×2 (09:00→21:19)
[2018-05-16] MEDS: COD LIVER OIL/ZINC OXIDE 120 GM TUBE TP SCH ×2 (09:00→16:41)
[2018-05-16 21:08] VITALS: BP 97/62
[2018-05-16] MEDS: POLYETHYLENE GLYCOL 3350 17 GM POWD.PACK GT SCH (21:19)
[2018-05-17] MEDS: ALBUTEROL FS 2.5 MG/3 ML VIAL.NEB NEB SCH ×4 (00:43→19:16)
[2018-05-17] MEDS: IPRATROPIUM NEB FS 0.5 MG/2.5 ML AMPUL.NEB NEB SCH ×4 (00:43→19:16)
[2018-05-17] MEDS: ERYTHROMYCIN STEARATE 250 MG TABLET GT SCH ×4 (05:48→23:29)
[2018-05-17 07:53] VITALS: BP 100/62
[2018-05-17] MEDS: Z GUARD REMEDY 4 OZ OINT TP SCH ×2 (09:59→21:26)
[2018-05-17] MEDS: RANITIDINE GT SCH ×2 (09:59→21:26)
[2018-05-17] MEDS: COD LIVER OIL/ZINC OXIDE 120 GM TUBE TP SCH ×2 (09:59→17:43)
[2018-05-17] MEDS: LEVETIRACETAM SOL (5 ML) 100 MG/ML UDC GT SCH ×2 (09:59→21:26)
[2018-05-17] MEDS: HYDROGEN PEROXIDE 480 ML BOTTLE TP SCH ×2 (09:59→21:26)
[2018-05-17] MEDS: PROSOURCE / PROSTAT (PYXIS) 30 ML UDC JT SCH ×2 (09:59→17:43)
[2018-05-17] MEDS: POLYVINYL ALCOHOL 15 ML BOTTLE EACHEYE SCH ×4 (09:59→21:26)
[2018-05-17] MEDS: CLOTRIMAZOLE 1% 15 GM TUBE TP SCH (09:59)
[2018-05-17] MEDS: VITS A AND D/WHITE PET/LANOLIN 5 GM PACKET TP SCH ×2 (10:00→21:27)
[2018-05-17] MEDS: JEVITY 1.2 CAL 1,000 ML BOTTLE JT PRN (13:37)
[2018-05-17 19:38] VITALS: BP 107/69
[2018-05-17] MEDS: POLYETHYLENE GLYCOL 3350 17 GM POWD.PACK GT SCH (21:27)
[2018-05-18] MEDS: ALBUTEROL FS 2.5 MG/3 ML VIAL.NEB NEB SCH ×4 (01:40→19:34)
[2018-05-18] MEDS: IPRATROPIUM NEB FS 0.5 MG/2.5 ML AMPUL.NEB NEB SCH ×4 (01:40→19:34)
[2018-05-18] MEDS: ERYTHROMYCIN STEARATE 250 MG TABLET GT SCH ×4 (05:41→23:21)
[2018-05-18 07:30] VITALS: BP 96/60
[2018-05-18] MEDS: VITS A AND D/WHITE PET/LANOLIN 5 GM PACKET TP SCH ×2 (09:00→20:59)
[2018-05-18] MEDS: POLYVINYL ALCOHOL 15 ML BOTTLE EACHEYE SCH ×4 (09:00→20:58)
[2018-05-18] MEDS: COD LIVER OIL/ZINC OXIDE 120 GM TUBE TP SCH ×2 (09:00→17:36)
[2018-05-18] MEDS: HYDROGEN PEROXIDE 480 ML BOTTLE TP SCH ×2 (09:00→20:59)
[2018-05-18] MEDS: PROSOURCE / PROSTAT (PYXIS) 30 ML UDC JT SCH ×2 (09:00→17:36)
[2018-05-18] MEDS: RANITIDINE GT SCH ×2 (09:00→20:59)
[2018-05-18] MEDS: LEVETIRACETAM SOL (5 ML) 100 MG/ML UDC GT SCH ×2 (09:00→20:59)
[2018-05-18] MEDS: Z GUARD REMEDY 4 OZ OINT TP SCH ×2 (09:00→20:59)
[2018-05-18 19:38] VITALS: BP 110/71
[2018-05-18] MEDS: POLYETHYLENE GLYCOL 3350 17 GM POWD.PACK GT SCH (21:01)
[2018-05-19] MEDS: IPRATROPIUM NEB FS 0.5 MG/2.5 ML AMPUL.NEB NEB SCH ×4 (01:35→19:52)
[2018-05-19] MEDS: ALBUTEROL FS 2.5 MG/3 ML VIAL.NEB NEB SCH ×4 (01:35→19:52)
[2018-05-19] MEDS: ERYTHROMYCIN STEARATE 250 MG TABLET GT SCH ×4 (05:49→23:28)
[2018-05-19 07:25] VITALS: BP 102/54
[2018-05-19] MEDS: POLYVINYL ALCOHOL 15 ML BOTTLE EACHEYE SCH ×4 (09:00→21:19)
[2018-05-19] MEDS: Z GUARD REMEDY 4 OZ OINT TP SCH ×2 (09:00→21:19)
[2018-05-19] MEDS: RANITIDINE GT SCH ×2 (09:00→21:19)
[2018-05-19] MEDS: HYDROGEN PEROXIDE 480 ML BOTTLE TP SCH ×2 (09:00→21:19)
[2018-05-19] MEDS: COD LIVER OIL/ZINC OXIDE 120 GM TUBE TP SCH ×2 (09:00→17:12)
[2018-05-19] MEDS: VITS A AND D/WHITE PET/LANOLIN 5 GM PACKET TP SCH ×2 (09:00→21:20)
[2018-05-19] MEDS: PROSOURCE / PROSTAT (PYXIS) 30 ML UDC JT SCH ×2 (09:00→17:12)
[2018-05-19] MEDS: LEVETIRACETAM SOL (5 ML) 100 MG/ML UDC GT SCH ×2 (09:00→21:19)
--- NOTE | 2018-05-19 18:53 | NUR ---
at 1700 checked gastric residual; 200 cc. hold feeding for 1 hour. rechecked; gastric residual noted at 50cc. resume gtube feeding. at 1820 bladder scan done; 200ml noted. endorsed.
--- NOTE | 2018-05-19 19:52 | NUR ---
RT NOTE: RECEIVED TRACH PT ON [facility] VENT ON NOTED SETTINGS PER MD ORDERS. TRACH IS PATENT AND SECURED. WEAVING INSTRUCTOR DONE. Q6 BREATHING TX GIVEN WITH NO ADVERSE REACTION NOTED. SX DONE PRN. VENT PLUGGED INTO RED OUTLET. ALARMS ON AND AUDIBLE. RAGHU BAG @ BEDSIDE. NO RESP DISTRESS AT THIS TIME. WILL CONT TO MONITOR PT. Addendum: 05/20/18 at 0205 by CIRILO LOZOYA RT Amended: Links added.
[2018-05-19 20:21] VITALS: BP 138/64
[2018-05-19] MEDS: POLYETHYLENE GLYCOL 3350 17 GM POWD.PACK GT SCH (21:20)
[2018-05-20] MEDS: ALBUTEROL FS 2.5 MG/3 ML VIAL.NEB NEB SCH ×4 (01:10→20:12)
[2018-05-20] MEDS: IPRATROPIUM NEB FS 0.5 MG/2.5 ML AMPUL.NEB NEB SCH ×4 (01:10→19:06)
[2018-05-20] MEDS: ERYTHROMYCIN STEARATE 250 MG TABLET GT SCH ×4 (05:48→23:22)
[2018-05-20 07:44] VITALS: BP 102/69
[2018-05-20] MEDS: VITS A AND D/WHITE PET/LANOLIN 5 GM PACKET TP SCH ×2 (09:00→20:55)
[2018-05-20] MEDS: POLYVINYL ALCOHOL 15 ML BOTTLE EACHEYE SCH ×4 (09:00→20:55)
[2018-05-20] MEDS: RANITIDINE GT SCH ×2 (09:00→20:55)
[2018-05-20] MEDS: COD LIVER OIL/ZINC OXIDE 120 GM TUBE TP SCH ×2 (09:00→17:00)
[2018-05-20] MEDS: HYDROGEN PEROXIDE 480 ML BOTTLE TP SCH ×2 (09:00→20:55)
[2018-05-20] MEDS: LEVETIRACETAM SOL (5 ML) 100 MG/ML UDC GT SCH ×2 (09:00→20:55)
[2018-05-20] MEDS: PROSOURCE / PROSTAT (PYXIS) 30 ML UDC JT SCH ×2 (09:00→17:00)
[2018-05-20] MEDS: Z GUARD REMEDY 4 OZ OINT TP SCH ×2 (09:00→20:55)
--- NOTE | 2018-05-20 12:00 | NUR ---
Father and Aunt visited. Resident Aunt gave him a haircut.
--- NOTE | 2018-05-20 14:37 | NUR ---
SW communicated patient's mother about IDT mtg on 05/24/2018
--- NOTE | 2018-05-20 15:03 | NUR ---
Seen and examined by XAVI Mike, no new order given.
[2018-05-20 20:19] VITALS: BP 97/55
[2018-05-20] MEDS: POLYETHYLENE GLYCOL 3350 17 GM POWD.PACK GT SCH (21:46)
[2018-05-21] MEDS: ALBUTEROL FS 2.5 MG/3 ML VIAL.NEB NEB SCH ×4 (01:02→20:10)
[2018-05-21] MEDS: IPRATROPIUM NEB FS 0.5 MG/2.5 ML AMPUL.NEB NEB SCH ×4 (01:02→20:10)
[2018-05-21] MEDS: ERYTHROMYCIN STEARATE 250 MG TABLET GT SCH ×4 (05:57→23:36)
[2018-05-21 07:36] VITALS: BP 97/62
[2018-05-21] MEDS: POLYVINYL ALCOHOL 15 ML BOTTLE EACHEYE SCH ×4 (09:00→21:10)
[2018-05-21] MEDS: COD LIVER OIL/ZINC OXIDE 120 GM TUBE TP SCH ×2 (09:00→17:19)
[2018-05-21] MEDS: RANITIDINE GT SCH ×2 (09:00→21:10)
[2018-05-21] MEDS: LEVETIRACETAM SOL (5 ML) 100 MG/ML UDC GT SCH ×2 (09:00→21:10)
[2018-05-21] MEDS: HYDROGEN PEROXIDE 480 ML BOTTLE TP SCH ×2 (09:00→21:10)
[2018-05-21] MEDS: VITS A AND D/WHITE PET/LANOLIN 5 GM PACKET TP SCH ×2 (09:00→21:11)
[2018-05-21] MEDS: Z GUARD REMEDY 4 OZ OINT TP SCH ×2 (09:00→21:10)
[2018-05-21] MEDS: PROSOURCE / PROSTAT (PYXIS) 30 ML UDC JT SCH ×2 (09:00→17:19)
[2018-05-21 20:51] VITALS: BP 112/66
[2018-05-21] MEDS: POLYETHYLENE GLYCOL 3350 17 GM POWD.PACK GT SCH (21:11)
[2018-05-22] MEDS: ALBUTEROL FS 2.5 MG/3 ML VIAL.NEB NEB SCH ×4 (01:25→19:56)
[2018-05-22] MEDS: IPRATROPIUM NEB FS 0.5 MG/2.5 ML AMPUL.NEB NEB SCH ×4 (01:25→19:56)
[2018-05-22] MEDS: ERYTHROMYCIN STEARATE 250 MG TABLET GT SCH ×4 (06:16→23:34)
[2018-05-22 07:35] VITALS: BP 91/58
[2018-05-22] MEDS: VITS A AND D/WHITE PET/LANOLIN 5 GM PACKET TP SCH ×2 (09:00→21:21)
[2018-05-22] MEDS: COD LIVER OIL/ZINC OXIDE 120 GM TUBE TP SCH ×2 (09:00→17:26)
[2018-05-22] MEDS: HYDROGEN PEROXIDE 480 ML BOTTLE TP SCH ×2 (09:00→21:21)
[2018-05-22] MEDS: Z GUARD REMEDY 4 OZ OINT TP SCH ×2 (09:00→21:21)
[2018-05-22] MEDS: PROSOURCE / PROSTAT (PYXIS) 30 ML UDC JT SCH ×2 (09:21→17:26)
[2018-05-22] MEDS: RANITIDINE GT SCH ×2 (09:21→21:21)
[2018-05-22] MEDS: POLYVINYL ALCOHOL 15 ML BOTTLE EACHEYE SCH ×4 (09:21→21:21)
[2018-05-22] MEDS: LEVETIRACETAM SOL (5 ML) 100 MG/ML UDC GT SCH ×2 (09:21→21:21)
--- NOTE | 2018-05-22 18:10 | NUR ---
Notified Dr. Garcia that JT is clogged and unable to flush but GT extension is working. Informed MD that per CT scan on 01/12/18 that GT is seen extending into the stomach which is coiled within the body of the stomach. Per Dr. Hector try using GT part. No gastric residual. Endorsed.
[2018-05-22 20:04] VITALS: BP 109/52
[2018-05-22] MEDS: POLYETHYLENE GLYCOL 3350 17 GM POWD.PACK GT SCH (21:21)
[2018-05-23] MEDS: ALBUTEROL FS 2.5 MG/3 ML VIAL.NEB NEB SCH ×4 (01:40→19:56)
[2018-05-23] MEDS: IPRATROPIUM NEB FS 0.5 MG/2.5 ML AMPUL.NEB NEB SCH ×4 (01:40→19:56)
[2018-05-23] MEDS: ERYTHROMYCIN STEARATE 250 MG TABLET GT SCH ×4 (05:23→23:14)
[2018-05-23 07:54] VITALS: BP 97/62
[2018-05-23] MEDS: PROSOURCE / PROSTAT (PYXIS) 30 ML UDC JT SCH ×2 (09:23→17:59)
[2018-05-23] MEDS: COD LIVER OIL/ZINC OXIDE 120 GM TUBE TP SCH ×2 (09:23→17:59)
[2018-05-23] MEDS: POLYVINYL ALCOHOL 15 ML BOTTLE EACHEYE SCH ×4 (09:23→21:09)
[2018-05-23] MEDS: VITS A AND D/WHITE PET/LANOLIN 5 GM PACKET TP SCH ×2 (09:23→21:09)
[2018-05-23] MEDS: RANITIDINE GT SCH ×2 (09:23→21:09)
[2018-05-23] MEDS: LEVETIRACETAM SOL (5 ML) 100 MG/ML UDC GT SCH ×2 (09:23→21:09)
[2018-05-23] MEDS: Z GUARD REMEDY 4 OZ OINT TP SCH ×2 (09:23→21:09)
[2018-05-23] MEDS: HYDROGEN PEROXIDE 480 ML BOTTLE TP SCH ×2 (09:23→21:09)
[2018-05-23 20:31] VITALS: BP 100/56
--- NOTE | 2018-05-23 20:39 | NUR ---
RT NOTE PATIENT RECEIVED TRACHED ON MECHANICAL VENTILATION. VENT PLUGGED INTO RED OUTLET. AMBU BAG/BACK UP TRACH @ BEDSIDE. TX GIVEN, NO ADVERSE REACTIONS NOTED. SX DONE, MODERATE THICK WHITE SECRETIONS NOTED. ALARMS ON AND AUDIBLE. NO DISTRESS NOTED. PATIENT STABLE. WILL MONITOR. Addendum: 05/23/18 at 2039 by MILAN CARRASCO RT Amended: Links added.
[2018-05-23] MEDS: POLYETHYLENE GLYCOL 3350 17 GM POWD.PACK GT SCH (21:09)
[2018-05-23] MEDS: Z GUARD REMEDY 2 OZ OINT TP SCH (21:09)
[2018-05-24] MEDS: ALBUTEROL FS 2.5 MG/3 ML VIAL.NEB NEB SCH ×4 (01:49→20:12)
[2018-05-24] MEDS: IPRATROPIUM NEB FS 0.5 MG/2.5 ML AMPUL.NEB NEB SCH ×4 (01:49→20:12)
[2018-05-24] MEDS: ERYTHROMYCIN STEARATE 250 MG TABLET GT SCH ×4 (05:20→23:52)
--- NOTE | 2018-05-24 07:44 | NUR ---
Received male trach pt unlabored on a mechanical vent. Pt wade is secure. Vent is plugged into a red outlet, alarms are set and audible, and BMV is at bedside. Addendum: 05/24/18 at 0745 by ANGELO RIZVI RT Amended: Links added.
[2018-05-24 07:58] VITALS: BP 101/67
[2018-05-24] MEDS: RANITIDINE GT SCH ×2 (09:31→20:43)
[2018-05-24] MEDS: POLYVINYL ALCOHOL 15 ML BOTTLE EACHEYE SCH ×4 (09:31→20:43)
[2018-05-24] MEDS: LEVETIRACETAM SOL (5 ML) 100 MG/ML UDC GT SCH ×2 (09:31→20:43)
[2018-05-24] MEDS: PROSOURCE / PROSTAT (PYXIS) 30 ML UDC JT SCH ×2 (09:31→17:47)
[2018-05-24] MEDS: Z GUARD REMEDY 2 OZ OINT TP SCH ×2 (09:33→20:43)
[2018-05-24] MEDS: Z GUARD REMEDY 4 OZ OINT TP SCH ×2 (09:33→20:43)
[2018-05-24] MEDS: HYDROGEN PEROXIDE 480 ML BOTTLE TP SCH ×2 (09:33→20:43)
[2018-05-24] MEDS: COD LIVER OIL/ZINC OXIDE 120 GM TUBE TP SCH ×2 (09:33→17:47)
[2018-05-24] MEDS: VITS A AND D/WHITE PET/LANOLIN 5 GM PACKET TP SCH ×2 (09:33→20:43)
--- NOTE | 2018-05-24 14:00 | NUR ---
INTERDISCIPLINARY TEAM CONFERENCE was held today. Resident's father unable to attend the mtg. Dr. Cleveland and the interdisciplinary team reviewed the current plan of care in detail. Orders as well as treatment and medications were reviewed. Informed Dr. Cleveland that JT is clogged, and GI was made aware who said to use GT for now. Gastric residual 50 ml., no N/V. Will follow-up with GI to reassess GT/ JT per Dr. Cleveland. Resident stable at this time.
[2018-05-24] MEDS: JEVITY 1.2 CAL 1,000 ML BOTTLE JT PRN (18:06)
[2018-05-24] MEDS: BISACODYL SUPP (10 MG) 10 MG/SUPP.RECT SUPP.RECT RC PRN (18:29)
[2018-05-24 19:39] VITALS: BP 102/55
[2018-05-24] MEDS: POLYETHYLENE GLYCOL 3350 17 GM POWD.PACK GT SCH (21:15)
[2018-05-25] MEDS: ALBUTEROL FS 2.5 MG/3 ML VIAL.NEB NEB SCH ×4 (02:04→19:47)
[2018-05-25] MEDS: IPRATROPIUM NEB FS 0.5 MG/2.5 ML AMPUL.NEB NEB SCH ×4 (02:04→19:47)
[2018-05-25] MEDS: ERYTHROMYCIN STEARATE 250 MG TABLET GT SCH ×3 (05:10→18:31)
[2018-05-25 07:47] VITALS: BP 95/53
[2018-05-25] MEDS: POLYVINYL ALCOHOL 15 ML BOTTLE EACHEYE SCH ×4 (08:55→20:28)
[2018-05-25] MEDS: RANITIDINE GT SCH ×2 (08:56→20:28)
[2018-05-25] MEDS: LEVETIRACETAM SOL (5 ML) 100 MG/ML UDC GT SCH ×2 (08:56→20:28)
[2018-05-25] MEDS: PROSOURCE / PROSTAT (PYXIS) 30 ML UDC JT SCH ×2 (08:57→17:11)
[2018-05-25] MEDS: HYDROGEN PEROXIDE 480 ML BOTTLE TP SCH ×2 (09:00→20:28)
[2018-05-25] MEDS: Z GUARD REMEDY 4 OZ OINT TP SCH ×2 (09:00→20:28)
[2018-05-25] MEDS: COD LIVER OIL/ZINC OXIDE 120 GM TUBE TP SCH ×2 (09:00→17:00)
[2018-05-25] MEDS: Z GUARD REMEDY 2 OZ OINT TP SCH ×2 (09:00→20:28)
[2018-05-25] MEDS: VITS A AND D/WHITE PET/LANOLIN 5 GM PACKET TP SCH ×2 (09:00→20:28)
--- NOTE | 2018-05-25 09:12 | NUR ---
RT PATIENT REC'D TRACHED ON MECHANICAL VENTILATION. AMBU BAG/BACK UP TRACH BY BEDSIDE. TX GIVEN, NO ADVERSE REACTIONS NOTED. SX DONE WITH MODERATE THICK PALE-YELLOW SECRETIONS, TRACH SECURED AND PATENT. ALARMS ON AND AUDIBLE. VENT PLUGGED IN RED OUTLET. NO RESPIRATORY DISTRESS NOTED AT THIS TIME. PATIENT STABLE. WILL CONTINUE TO MONITOR. Addendum: 05/25/18 at 0913 by KYM DUEÑAS RT Amended: Links added.
[2018-05-25 19:51] VITALS: BP 123/73
[2018-05-25] MEDS: POLYETHYLENE GLYCOL 3350 17 GM POWD.PACK GT SCH (21:11)
--- NOTE | 2018-05-25 21:32 | NUR ---
RT NOTE PATIENT WAS RECEIVED ON CONTINUOUS VENT SUPPORT ON NOTED VENT SETTINGS. HHN INLINE TREATMENT WAS GIVEN, NO ADVERSE REACTION NOTED ,PRN SUCTION WAS DONE. TRACH TUBE PATENT AND SECURED. ALARMS ON AND AUDIBLE. JEREMY AND CHARISSA DC AT [facility]. WILL CONTINUE TO MONITOR PATIENT Addendum: 05/25/18 at 2132 by HARLEY MUNIZ RT Amended: Links added.
[2018-05-26] MEDS: ERYTHROMYCIN STEARATE 250 MG TABLET GT SCH ×4 (00:28→17:33)
[2018-05-26] MEDS: ALBUTEROL FS 2.5 MG/3 ML VIAL.NEB NEB SCH ×4 (01:27→19:34)
[2018-05-26] MEDS: IPRATROPIUM NEB FS 0.5 MG/2.5 ML AMPUL.NEB NEB SCH ×4 (01:27→19:34)
[2018-05-26 07:46] VITALS: BP 112/73
[2018-05-26] MEDS: POLYVINYL ALCOHOL 15 ML BOTTLE EACHEYE SCH ×4 (08:58→21:04)
[2018-05-26] MEDS: RANITIDINE GT SCH ×2 (08:58→21:04)
[2018-05-26] MEDS: LEVETIRACETAM SOL (5 ML) 100 MG/ML UDC GT SCH ×2 (08:59→21:04)
[2018-05-26] MEDS: PROSOURCE / PROSTAT (PYXIS) 30 ML UDC JT SCH ×2 (08:59→17:32)
[2018-05-26] MEDS: COD LIVER OIL/ZINC OXIDE 120 GM TUBE TP SCH ×2 (09:00→17:33)
[2018-05-26] MEDS: Z GUARD REMEDY 2 OZ OINT TP SCH ×2 (09:00→21:04)
[2018-05-26] MEDS: VITS A AND D/WHITE PET/LANOLIN 5 GM PACKET TP SCH ×2 (09:00→21:04)
[2018-05-26] MEDS: HYDROGEN PEROXIDE 480 ML BOTTLE TP SCH ×2 (09:00→21:04)
[2018-05-26] MEDS: Z GUARD REMEDY 4 OZ OINT TP SCH ×2 (09:00→21:04)
[2018-05-26] MEDS: JEVITY 1.2 CAL 1,000 ML BOTTLE JT PRN ×2 (17:40→19:00)
--- NOTE | 2018-05-26 19:36 | NUR ---
PATIENT RECEIVED TRACHED ON MECHANICAL VENTILATION. AMBU BAG/BACK UP TRACH @ BEDSIDE. TX GIVEN, NO ADVERSE REACTIONS NOTED. SX DONE, SMALL THICK WHITE SECRETIONS NOTED. ALARMS ON AND AUDIBLE. NO DISTRESS NOTED. PATIENT STABLE. WILL MONITOR. Addendum: 05/26/18 at 1936 by MASOOD POLK RT Amended: Links added.
[2018-05-26 20:30] VITALS: BP 100/66
[2018-05-26] MEDS: POLYETHYLENE GLYCOL 3350 17 GM POWD.PACK GT SCH (21:04)
[2018-05-27] MEDS: ERYTHROMYCIN STEARATE 250 MG TABLET GT SCH ×5 (00:29→23:19)
[2018-05-27] MEDS: IPRATROPIUM NEB FS 0.5 MG/2.5 ML AMPUL.NEB NEB SCH ×4 (02:17→19:35)
[2018-05-27] MEDS: ALBUTEROL FS 2.5 MG/3 ML VIAL.NEB NEB SCH ×4 (02:17→19:35)
[2018-05-27 07:41] VITALS: BP 88/52
[2018-05-27] MEDS: VITS A AND D/WHITE PET/LANOLIN 5 GM PACKET TP SCH ×2 (09:00→20:54)
[2018-05-27] MEDS: PROSOURCE / PROSTAT (PYXIS) 30 ML UDC JT SCH ×2 (09:00→17:00)
[2018-05-27] MEDS: POLYVINYL ALCOHOL 15 ML BOTTLE EACHEYE SCH ×4 (09:00→20:53)
[2018-05-27] MEDS: LEVETIRACETAM SOL (5 ML) 100 MG/ML UDC GT SCH ×2 (09:00→20:53)
[2018-05-27] MEDS: COD LIVER OIL/ZINC OXIDE 120 GM TUBE TP SCH ×2 (09:00→17:00)
[2018-05-27] MEDS: RANITIDINE GT SCH ×2 (09:00→20:53)
[2018-05-27] MEDS: Z GUARD REMEDY 2 OZ OINT TP SCH ×2 (09:00→20:54)
[2018-05-27] MEDS: Z GUARD REMEDY 4 OZ OINT TP SCH ×2 (09:00→20:54)
[2018-05-27] MEDS: HYDROGEN PEROXIDE 480 ML BOTTLE TP SCH ×2 (09:00→20:53)
--- NOTE | 2018-05-27 16:53 | NUR ---
pt rec'd trached on [facility] vent on ac mode. no resp distress or sob noted. trach patent and secured. sx'd for mod amt of pale yellow secretions. alarms are set and audible. vent plugged into red outlet. ambu bag bedside. will continue to monitor. Addendum: 05/27/18 at 1653 by STELLA DALAL RT Amended: Links added.
[2018-05-27 20:46] VITALS: BP 90/50
[2018-05-27] MEDS: POLYETHYLENE GLYCOL 3350 17 GM POWD.PACK GT SCH (21:59)
[2018-05-28] MEDS: ALBUTEROL FS 2.5 MG/3 ML VIAL.NEB NEB SCH ×4 (01:22→19:40)
[2018-05-28] MEDS: IPRATROPIUM NEB FS 0.5 MG/2.5 ML AMPUL.NEB NEB SCH ×4 (01:22→19:40)
[2018-05-28] MEDS: ERYTHROMYCIN STEARATE 250 MG TABLET GT SCH ×4 (05:59→23:25)
[2018-05-28] MEDS: JEVITY 1.2 CAL 1,000 ML BOTTLE JT PRN (06:14)
[2018-05-28 07:39] VITALS: BP 98/49
[2018-05-28] MEDS: Z GUARD REMEDY 4 OZ OINT TP SCH ×2 (09:00→21:48)
[2018-05-28] MEDS: VITS A AND D/WHITE PET/LANOLIN 5 GM PACKET TP SCH ×2 (09:00→21:48)
[2018-05-28] MEDS: HYDROGEN PEROXIDE 480 ML BOTTLE TP SCH ×2 (09:00→21:47)
[2018-05-28] MEDS: Z GUARD REMEDY 2 OZ OINT TP SCH ×2 (09:00→21:48)
[2018-05-28] MEDS: COD LIVER OIL/ZINC OXIDE 120 GM TUBE TP SCH ×2 (09:00→17:29)
[2018-05-28] MEDS: POLYVINYL ALCOHOL 15 ML BOTTLE EACHEYE SCH ×4 (09:07→21:47)
[2018-05-28] MEDS: LEVETIRACETAM SOL (5 ML) 100 MG/ML UDC GT SCH ×2 (09:08→21:47)
[2018-05-28] MEDS: PROSOURCE / PROSTAT (PYXIS) 30 ML UDC JT SCH ×2 (09:08→17:29)
[2018-05-28] MEDS: RANITIDINE GT SCH ×2 (09:08→21:47)
[2018-05-28 20:49] VITALS: BP 102/68
[2018-05-28] MEDS: POLYETHYLENE GLYCOL 3350 17 GM POWD.PACK GT SCH (21:48)
[2018-05-29] MEDS: IPRATROPIUM NEB FS 0.5 MG/2.5 ML AMPUL.NEB NEB SCH ×4 (01:51→20:00)
[2018-05-29] MEDS: ALBUTEROL FS 2.5 MG/3 ML VIAL.NEB NEB SCH ×4 (01:51→20:00)
[2018-05-29] MEDS: ERYTHROMYCIN STEARATE 250 MG TABLET GT SCH ×4 (05:58→23:29)
[2018-05-29 07:52] VITALS: BP 98/56
[2018-05-29] MEDS: POLYVINYL ALCOHOL 15 ML BOTTLE EACHEYE SCH ×4 (08:40→21:38)
[2018-05-29] MEDS: RANITIDINE GT SCH ×2 (08:41→21:38)
[2018-05-29] MEDS: LEVETIRACETAM SOL (5 ML) 100 MG/ML UDC GT SCH ×2 (08:41→21:38)
[2018-05-29] MEDS: PROSOURCE / PROSTAT (PYXIS) 30 ML UDC JT SCH ×2 (08:41→16:29)
[2018-05-29] MEDS: VITS A AND D/WHITE PET/LANOLIN 5 GM PACKET TP SCH ×2 (09:00→21:38)
[2018-05-29] MEDS: HYDROGEN PEROXIDE 480 ML BOTTLE TP SCH ×2 (09:00→21:38)
[2018-05-29] MEDS: Z GUARD REMEDY 2 OZ OINT TP SCH ×2 (09:00→21:38)
[2018-05-29] MEDS: Z GUARD REMEDY 4 OZ OINT TP SCH ×2 (09:00→21:38)
[2018-05-29] MEDS: COD LIVER OIL/ZINC OXIDE 120 GM TUBE TP SCH ×2 (09:00→16:29)
[2018-05-29] MEDS: JEVITY 1.2 CAL 1,000 ML BOTTLE JT PRN (17:06)
[2018-05-29 20:49] VITALS: BP 103/54
[2018-05-29] MEDS: POLYETHYLENE GLYCOL 3350 17 GM POWD.PACK GT SCH (21:38)
[2018-05-30] MEDS: IPRATROPIUM NEB FS 0.5 MG/2.5 ML AMPUL.NEB NEB SCH ×4 (01:59→19:59)
[2018-05-30] MEDS: ALBUTEROL FS 2.5 MG/3 ML VIAL.NEB NEB SCH ×4 (01:59→19:59)
[2018-05-30] MEDS: ERYTHROMYCIN STEARATE 250 MG TABLET GT SCH ×4 (05:18→23:38)
[2018-05-30 08:25] VITALS: BP 123/67
[2018-05-30] MEDS: LEVETIRACETAM SOL (5 ML) 100 MG/ML UDC GT SCH ×2 (09:06→21:26)
[2018-05-30] MEDS: HYDROGEN PEROXIDE 480 ML BOTTLE TP SCH ×2 (09:07→21:26)
[2018-05-30] MEDS: VITS A AND D/WHITE PET/LANOLIN 5 GM PACKET TP SCH ×2 (09:07→21:26)
[2018-05-30] MEDS: PROSOURCE / PROSTAT (PYXIS) 30 ML UDC JT SCH ×2 (09:07→17:55)
[2018-05-30] MEDS: RANITIDINE GT SCH ×2 (09:07→21:26)
[2018-05-30] MEDS: COD LIVER OIL/ZINC OXIDE 120 GM TUBE TP SCH ×2 (09:07→17:55)
[2018-05-30] MEDS: Z GUARD REMEDY 2 OZ OINT TP SCH ×2 (09:07→21:26)
[2018-05-30] MEDS: Z GUARD REMEDY 4 OZ OINT TP SCH ×2 (09:07→21:26)
[2018-05-30] MEDS: POLYVINYL ALCOHOL 15 ML BOTTLE EACHEYE SCH ×4 (09:10→21:26)
--- NOTE | 2018-05-30 20:00 | NUR ---
RT NOTE: RECEIVED TRACH PT ON [facility] VENT ON NOTED SETTINGS PER MD ORDERS. TRACH IS PATENT AND SECURED. ELECTRIC CLOCK MECHANIC DONE. Q6 BREATHING TX GIVEN WITH NO ADVERSE REACTION NOTED. SX DONE PRN. VENT PLUGGED INTO RED OUTLET. ALARMS ON AND AUDIBLE. RAGHU BAG @ BEDSIDE. NO RESP DISTRESS AT THIS TIME. WILL CONT TO MONITOR PT. Addendum: 05/31/18 at 0209 by CIRILO LOZOYA RT Amended: Links added.
[2018-05-30 20:01] VITALS: BP 112/58
[2018-05-30] MEDS: POLYETHYLENE GLYCOL 3350 17 GM POWD.PACK GT SCH (21:26)
[2018-05-31] MEDS: IPRATROPIUM NEB FS 0.5 MG/2.5 ML AMPUL.NEB NEB SCH ×4 (01:16→19:59)
[2018-05-31] MEDS: ALBUTEROL FS 2.5 MG/3 ML VIAL.NEB NEB SCH ×4 (01:16→19:59)
[2018-05-31] MEDS: ERYTHROMYCIN STEARATE 250 MG TABLET GT SCH ×4 (05:39→23:01)
[2018-05-31] MEDS: JEVITY 1.2 CAL 1,000 ML BOTTLE JT PRN (05:39)
[2018-05-31 07:36] VITALS: BP 104/56
[2018-05-31] MEDS: LEVETIRACETAM SOL (5 ML) 100 MG/ML UDC GT SCH ×2 (09:12→21:19)
[2018-05-31] MEDS: POLYVINYL ALCOHOL 15 ML BOTTLE EACHEYE SCH ×4 (09:12→21:19)
[2018-05-31] MEDS: VITS A AND D/WHITE PET/LANOLIN 5 GM PACKET TP SCH ×2 (09:12→21:20)
[2018-05-31] MEDS: RANITIDINE GT SCH ×2 (09:12→21:19)
[2018-05-31] MEDS: Z GUARD REMEDY 4 OZ OINT TP SCH ×2 (09:12→21:20)
[2018-05-31] MEDS: PROSOURCE / PROSTAT (PYXIS) 30 ML UDC JT SCH ×2 (09:12→17:56)
[2018-05-31] MEDS: COD LIVER OIL/ZINC OXIDE 120 GM TUBE TP SCH ×2 (09:12→17:56)
[2018-05-31] MEDS: HYDROGEN PEROXIDE 480 ML BOTTLE TP SCH ×2 (09:12→21:19)
[2018-05-31] MEDS: Z GUARD REMEDY 2 OZ OINT TP SCH ×2 (09:12→21:20)
--- NOTE | 2018-05-31 12:10 | NUR ---
Seen by Dr. Ledesma, he cut R great toenail lateral nail border, slight bleeding noted, new order to apply Betadine x 2 days. Order carried out.
[2018-05-31 19:42] VITALS: BP 111/71
--- NOTE | 2018-05-31 20:56 | NUR ---
RT PT REC'D TRACH ON [facility] VENT ON NOTED SETTINGS PER MD ORDERS. TRACH IS PATENT AND SECURED. IUSS MASTER ANALYST DONE. TX GIVEN WITH NO ADVERSE REACTION NOTED. SX DONE PRN. VENT PLUGGED INTO RED OUTLET. ALARMS ON AND AUDIBLE. RAGHU LEIGH @ BEDSIDE. NO RESP DISTRESS AT THIS TIME. WILL CONT TO MONITOR. Addendum: 05/31/18 at 2056 by KYM DUEÑAS RT Amended: Links added.
[2018-05-31] MEDS: POLYETHYLENE GLYCOL 3350 17 GM POWD.PACK GT SCH (21:20)
[2018-06-01] MEDS: IPRATROPIUM NEB FS 0.5 MG/2.5 ML AMPUL.NEB NEB SCH ×4 (02:05→19:26)
[2018-06-01] MEDS: ALBUTEROL FS 2.5 MG/3 ML VIAL.NEB NEB SCH ×4 (02:05→19:27)
[2018-06-01] MEDS: ERYTHROMYCIN STEARATE 250 MG TABLET GT SCH ×4 (05:07→23:22)
[2018-06-01 07:33] VITALS: BP 110/69
[2018-06-01] MEDS: HYDROGEN PEROXIDE 480 ML BOTTLE TP SCH ×2 (09:00→20:50)
[2018-06-01] MEDS: Z GUARD REMEDY 4 OZ OINT TP SCH ×2 (09:00→20:50)
[2018-06-01] MEDS: VITS A AND D/WHITE PET/LANOLIN 5 GM PACKET TP SCH ×2 (09:00→20:50)
[2018-06-01] MEDS: COD LIVER OIL/ZINC OXIDE 120 GM TUBE TP SCH ×2 (09:00→17:06)
[2018-06-01] MEDS ORDERED: POVIDONE-IODINE OINT 28.4 GM TUBE TP SCH (09:00)
[2018-06-01] MEDS: Z GUARD REMEDY 2 OZ OINT TP SCH ×2 (09:00→20:50)
[2018-06-01] MEDS: RANITIDINE GT SCH ×2 (09:57→20:50)
[2018-06-01] MEDS: POLYVINYL ALCOHOL 15 ML BOTTLE EACHEYE SCH ×4 (09:57→20:50)
[2018-06-01] MEDS: LEVETIRACETAM SOL (5 ML) 100 MG/ML UDC GT SCH ×2 (09:58→20:50)
[2018-06-01] MEDS: PROSOURCE / PROSTAT (PYXIS) 30 ML UDC JT SCH ×2 (09:58→17:06)
[2018-06-01] MEDS: JEVITY 1.2 CAL 1,000 ML BOTTLE JT PRN (17:06)
[2018-06-01 19:43] VITALS: BP 102/64
[2018-06-01] MEDS: POLYETHYLENE GLYCOL 3350 17 GM POWD.PACK GT SCH (21:13)
[2018-06-02] MEDS: ALBUTEROL FS 2.5 MG/3 ML VIAL.NEB NEB SCH ×4 (01:43→19:51)
[2018-06-02] MEDS: IPRATROPIUM NEB FS 0.5 MG/2.5 ML AMPUL.NEB NEB SCH ×4 (01:43→19:51)
[2018-06-02] MEDS: ERYTHROMYCIN STEARATE 250 MG TABLET GT SCH ×3 (05:09→17:05)
[2018-06-02 07:43] VITALS: BP 100/52
--- NOTE | 2018-06-02 08:22 | NUR ---
RT PATIENT RECEIVED TRACH'D ON [facility] VENT WITH NOTED SETTINGS PER MD ORDER. ADVOCACY DIRECTOR DONE. TRACH SECURED AND PATENT. VENT PLUGGED INTO RED OUTLET. ALARMS ON AND FUNCTIONING PROPERLY. SPARE TRACH AND AMBU BAG AT HEAD OF BED. BREATHING TX'S GIVEN ORDERED. NO ADVERSE EFFECTS OBSERVED. SUCTIONED SMALL AMOUNTS OF THICK PALE, YELLOW SECRETIONS. NO SOB OR SIGNS OF DISTRESS NOTED AT THIS TIME. WILL CONTINUE TO MONITOR FOR ANY CHANGE OF CONDITION. Addendum: 06/02/18 at 1256 by RADHA GUADLAUPE RT Amended: Links added.
[2018-06-02] MEDS: Z GUARD REMEDY 4 OZ OINT TP SCH ×2 (09:00→20:42)
[2018-06-02] MEDS: LEVETIRACETAM SOL (5 ML) 100 MG/ML UDC GT SCH ×2 (09:00→20:42)
[2018-06-02] MEDS: HYDROGEN PEROXIDE 480 ML BOTTLE TP SCH ×2 (09:00→20:42)
[2018-06-02] MEDS: POLYVINYL ALCOHOL 15 ML BOTTLE EACHEYE SCH ×4 (09:00→20:42)
[2018-06-02] MEDS: RANITIDINE GT SCH ×2 (09:00→20:42)
[2018-06-02] MEDS: PROSOURCE / PROSTAT (PYXIS) 30 ML UDC JT SCH ×2 (09:00→17:05)
[2018-06-02] MEDS: COD LIVER OIL/ZINC OXIDE 120 GM TUBE TP SCH ×2 (09:00→17:05)
[2018-06-02] MEDS: Z GUARD REMEDY 2 OZ OINT TP SCH ×2 (09:00→20:42)
[2018-06-02] MEDS: VITS A AND D/WHITE PET/LANOLIN 5 GM PACKET TP SCH ×2 (09:00→20:42)
--- NOTE | 2018-06-02 17:21 | NUR ---
Notified Mi Kerr NP that at times patient's JT gets clogged and we are using GT for feeding and medications. A CT scan that was done in the past shows feeding tube is coiled within the body of the stomach. According to Mi she will discuss it with Dr. Arreola if he can put a regular GT or reposition JT. Endorsed to follow-up.
[2018-06-02 19:40] VITALS: BP 97/62
--- NOTE | 2018-06-02 19:53 | NUR ---
RT NOTE: RECEIVED TRACH PT ON [facility] VENT ON NOTED SETTINGS PER MD ORDERS. TRACH IS PATENT AND SECURED. FLASHER ADJUSTER DONE. Q6 BREATHING TX GIVEN WITH NO ADVERSE REACTION NOTED. SX DONE PRN. VENT PLUGGED INTO RED OUTLET. ALARMS ON AND AUDIBLE. RAGHU BAG @ BEDSIDE. NO RESP DISTRESS AT THIS TIME. WILL CONT TO MONITOR PT. Addendum: 06/03/18 at 0422 by CIRILO LOZOYA RT Amended: Links added.
[2018-06-02] MEDS: POLYETHYLENE GLYCOL 3350 17 GM POWD.PACK GT SCH (22:43)
[2018-06-03] MEDS: ERYTHROMYCIN STEARATE 250 MG TABLET GT SCH ×5 (00:45→23:29)
[2018-06-03] MEDS: IPRATROPIUM NEB FS 0.5 MG/2.5 ML AMPUL.NEB NEB SCH ×4 (01:13→19:27)
[2018-06-03] MEDS: ALBUTEROL FS 2.5 MG/3 ML VIAL.NEB NEB SCH ×4 (01:13→19:27)
[2018-06-03] MEDS: JEVITY 1.2 CAL 1,000 ML BOTTLE JT PRN (06:31)
--- NOTE | 2018-06-03 07:06 | NUR ---
Patient sleeping comfortably in bed , respiration even and unlabored . Gt/Jt intact and secure with no plugged noted. No gt residual at 0600. Will continue to monitor.
[2018-06-03 08:05] VITALS: BP 101/60
[2018-06-03] MEDS: Z GUARD REMEDY 4 OZ OINT TP SCH ×2 (09:00→20:14)
[2018-06-03] MEDS: HYDROGEN PEROXIDE 480 ML BOTTLE TP SCH ×2 (09:00→20:14)
[2018-06-03] MEDS: VITS A AND D/WHITE PET/LANOLIN 5 GM PACKET TP SCH ×2 (09:00→20:14)
[2018-06-03] MEDS: Z GUARD REMEDY 2 OZ OINT TP SCH ×2 (09:00→20:14)
[2018-06-03] MEDS: PROSOURCE / PROSTAT (PYXIS) 30 ML UDC JT SCH ×2 (09:17→17:00)
[2018-06-03] MEDS: POLYVINYL ALCOHOL 15 ML BOTTLE EACHEYE SCH ×4 (09:17→20:13)
[2018-06-03] MEDS: COD LIVER OIL/ZINC OXIDE 120 GM TUBE TP SCH ×2 (09:17→17:00)
[2018-06-03] MEDS: LEVETIRACETAM SOL (5 ML) 100 MG/ML UDC GT SCH ×2 (09:17→20:14)
[2018-06-03] MEDS: RANITIDINE GT SCH ×2 (09:17→20:14)
--- NOTE | 2018-06-03 16:09 | NUR ---
RT Pt received trach'd and on [facility] vent w charted settings per md orders. Alarms are set and audible. Trach is secure and patent. Production Maintenance Technician done. Hhn tx given and sx done prn w no adverse reactions. Bvm is at hob. No respiratory distress noted @ this time. Will continue to monitor. Addendum: 06/03/18 at 1609 by HUGH LICONA RT Amended: Links added.
--- NOTE | 2018-06-03 18:30 | NUR ---
Seen and examined by Germaine Mike NP, no new order given.
[2018-06-03 20:17] VITALS: BP 90/53
[2018-06-03] MEDS: POLYETHYLENE GLYCOL 3350 17 GM POWD.PACK GT SCH (22:12)
[2018-06-04] MEDS: IPRATROPIUM NEB FS 0.5 MG/2.5 ML AMPUL.NEB NEB SCH ×4 (01:02→19:57)
[2018-06-04] MEDS: ALBUTEROL FS 2.5 MG/3 ML VIAL.NEB NEB SCH ×4 (01:02→19:57)
[2018-06-04] MEDS: ERYTHROMYCIN STEARATE 250 MG TABLET GT SCH ×4 (05:51→23:45)
[2018-06-04] MEDS: Z GUARD REMEDY 4 OZ OINT TP SCH ×2 (09:00→20:46)
[2018-06-04] MEDS: Z GUARD REMEDY 2 OZ OINT TP SCH ×2 (09:00→20:46)
[2018-06-04] MEDS: VITS A AND D/WHITE PET/LANOLIN 5 GM PACKET TP SCH ×2 (09:00→20:46)
[2018-06-04] MEDS: HYDROGEN PEROXIDE 480 ML BOTTLE TP SCH ×2 (09:00→20:46)
[2018-06-04] MEDS: COD LIVER OIL/ZINC OXIDE 120 GM TUBE TP SCH ×2 (09:00→16:38)
--- NOTE | 2018-06-04 09:00 | NUR ---
Seen and examined by Dr. Cleveland , no new order given. Resp. even and unlabored. Denies pain. Trach secured and midline. On Mechanical ventilator, tolerating well. GJT inplace and secured. Will continue to monitor.
[2018-06-04] MEDS: POLYVINYL ALCOHOL 15 ML BOTTLE EACHEYE SCH ×4 (09:29→20:45)
[2018-06-04] MEDS: LEVETIRACETAM SOL (5 ML) 100 MG/ML UDC GT SCH ×2 (09:29→20:46)
[2018-06-04] MEDS: RANITIDINE GT SCH ×2 (09:29→20:45)
[2018-06-04] MEDS: PROSOURCE / PROSTAT (PYXIS) 30 ML UDC JT SCH ×2 (09:29→16:38)
[2018-06-04 11:55] VITALS: BP 97/63
[2018-06-04 20:05] VITALS: BP 112/69
[2018-06-04] MEDS: POLYETHYLENE GLYCOL 3350 17 GM POWD.PACK GT SCH (21:51)
[2018-06-05] MEDS: ALBUTEROL FS 2.5 MG/3 ML VIAL.NEB NEB SCH ×4 (01:01→19:56)
[2018-06-05] MEDS: IPRATROPIUM NEB FS 0.5 MG/2.5 ML AMPUL.NEB NEB SCH ×4 (01:01→19:56)
[2018-06-05] MEDS: ERYTHROMYCIN STEARATE 250 MG TABLET GT SCH ×4 (05:54→23:32)
[2018-06-05] MEDS: JEVITY 1.2 CAL 1,000 ML BOTTLE JT PRN (06:11)
[2018-06-05 08:02] VITALS: BP 92/57
[2018-06-05] MEDS: HYDROGEN PEROXIDE 480 ML BOTTLE TP SCH ×2 (08:33→21:08)
[2018-06-05] MEDS: LEVETIRACETAM SOL (5 ML) 100 MG/ML UDC GT SCH ×2 (08:33→21:08)
[2018-06-05] MEDS: COD LIVER OIL/ZINC OXIDE 120 GM TUBE TP SCH ×2 (08:33→16:31)
[2018-06-05] MEDS: PROSOURCE / PROSTAT (PYXIS) 30 ML UDC JT SCH ×2 (08:33→16:31)
[2018-06-05] MEDS: POLYVINYL ALCOHOL 15 ML BOTTLE EACHEYE SCH ×4 (08:33→21:08)
[2018-06-05] MEDS: Z GUARD REMEDY 2 OZ OINT TP SCH ×2 (08:33→21:08)
[2018-06-05] MEDS: RANITIDINE GT SCH ×2 (08:33→21:08)
[2018-06-05] MEDS: Z GUARD REMEDY 4 OZ OINT TP SCH ×2 (08:34→21:08)
[2018-06-05] MEDS: VITS A AND D/WHITE PET/LANOLIN 5 GM PACKET TP SCH ×2 (08:34→21:08)
[2018-06-05 20:35] VITALS: BP 92/55
[2018-06-05] MEDS: POLYETHYLENE GLYCOL 3350 17 GM POWD.PACK GT SCH (21:08)
[2018-06-06] MEDS: IPRATROPIUM NEB FS 0.5 MG/2.5 ML AMPUL.NEB NEB SCH ×4 (01:34→19:57)
[2018-06-06] MEDS: ALBUTEROL FS 2.5 MG/3 ML VIAL.NEB NEB SCH ×4 (01:34→19:57)
[2018-06-06] MEDS: JEVITY 1.2 CAL 1,000 ML BOTTLE JT PRN (06:00)
[2018-06-06] MEDS: ERYTHROMYCIN STEARATE 250 MG TABLET GT SCH ×4 (06:00→23:55)
[2018-06-06] MEDS: PROSOURCE / PROSTAT (PYXIS) 30 ML UDC JT SCH ×2 (08:58→16:42)
[2018-06-06] MEDS: HYDROGEN PEROXIDE 480 ML BOTTLE TP SCH ×2 (08:58→21:37)
[2018-06-06] MEDS: POLYVINYL ALCOHOL 15 ML BOTTLE EACHEYE SCH ×4 (08:58→21:37)
[2018-06-06] MEDS: VITS A AND D/WHITE PET/LANOLIN 5 GM PACKET TP SCH ×2 (08:58→21:38)
[2018-06-06] MEDS: Z GUARD REMEDY 4 OZ OINT TP SCH ×2 (08:58→21:37)
[2018-06-06] MEDS: Z GUARD REMEDY 2 OZ OINT TP SCH ×2 (08:58→21:37)
[2018-06-06] MEDS: RANITIDINE GT SCH ×2 (08:58→21:37)
[2018-06-06] MEDS: COD LIVER OIL/ZINC OXIDE 120 GM TUBE TP SCH ×2 (08:58→16:42)
[2018-06-06] MEDS: LEVETIRACETAM SOL (5 ML) 100 MG/ML UDC GT SCH ×2 (08:58→21:37)
[2018-06-06 10:51] VITALS: BP 115/71
[2018-06-06 20:34] VITALS: BP 105/63
[2018-06-06] MEDS: POLYETHYLENE GLYCOL 3350 17 GM POWD.PACK GT SCH (21:38)
[2018-06-07] MEDS: ALBUTEROL FS 2.5 MG/3 ML VIAL.NEB NEB SCH ×4 (00:35→20:17)
[2018-06-07] MEDS: IPRATROPIUM NEB FS 0.5 MG/2.5 ML AMPUL.NEB NEB SCH ×4 (00:35→20:17)
[2018-06-07] MEDS: ERYTHROMYCIN STEARATE 250 MG TABLET GT SCH ×3 (06:18→18:09)
--- NOTE | 2018-06-07 07:36 | NUR ---
Male wade pt received on a mechanical vent. Pt wade is secure. Vent is plugged into a red outlet, alarms are set and audible, and BMV is at bedside. Addendum: 06/07/18 at 0737 by ANGELO RIZVI RT Amended: Links added.
[2018-06-07 07:53] VITALS: BP 97/67
[2018-06-07] MEDS: PROSOURCE / PROSTAT (PYXIS) 30 ML UDC JT SCH ×2 (08:52→16:26)
[2018-06-07] MEDS: COD LIVER OIL/ZINC OXIDE 120 GM TUBE TP SCH ×2 (08:52→16:26)
[2018-06-07] MEDS: RANITIDINE GT SCH ×2 (08:52→20:30)
[2018-06-07] MEDS: HYDROGEN PEROXIDE 480 ML BOTTLE TP SCH ×2 (08:52→20:30)
[2018-06-07] MEDS: VITS A AND D/WHITE PET/LANOLIN 5 GM PACKET TP SCH ×2 (08:52→20:30)
[2018-06-07] MEDS: Z GUARD REMEDY 4 OZ OINT TP SCH ×2 (08:52→20:30)
[2018-06-07] MEDS: POLYVINYL ALCOHOL 15 ML BOTTLE EACHEYE SCH ×4 (08:52→20:30)
[2018-06-07] MEDS: LEVETIRACETAM SOL (5 ML) 100 MG/ML UDC GT SCH ×2 (08:52→20:30)
[2018-06-07] MEDS: JEVITY 1.2 CAL 1,000 ML BOTTLE JT PRN (19:04)
[2018-06-07 20:26] VITALS: BP 95/54
--- NOTE | 2018-06-07 21:09 | NUR ---
PT RCVD TRACH'D ON MECHANICAL VENT WITH CHARTED SETTINGS. HHN TX TOLERATED WELL. SX DONE. PT TRACH IS PATENT AND SECURE. AMBU BAG AT BEDSIDE. VENT PLUGGED INTO RED OUTLET. ALARMS ARE ON AND AUDIBLE. WILL CONTINUE TO MONITOR. Addendum: 06/07/18 at 2109 by STANFORD PETERS RT Amended: Links added.
[2018-06-07] MEDS: POLYETHYLENE GLYCOL 3350 17 GM POWD.PACK GT SCH (21:15)
[2018-06-08] MEDS: ERYTHROMYCIN STEARATE 250 MG TABLET GT SCH ×5 (00:28→23:49)
[2018-06-08] MEDS: ALBUTEROL FS 2.5 MG/3 ML VIAL.NEB NEB SCH ×4 (01:57→20:05)
[2018-06-08] MEDS: IPRATROPIUM NEB FS 0.5 MG/2.5 ML AMPUL.NEB NEB SCH ×4 (01:57→20:05)
[2018-06-08 07:55] VITALS: BP 100/59
[2018-06-08] MEDS: POLYVINYL ALCOHOL 15 ML BOTTLE EACHEYE SCH ×4 (08:56→21:19)
[2018-06-08] MEDS: RANITIDINE GT SCH ×2 (08:58→21:19)
[2018-06-08] MEDS: LEVETIRACETAM SOL (5 ML) 100 MG/ML UDC GT SCH ×2 (08:58→21:19)
[2018-06-08] MEDS: PROSOURCE / PROSTAT (PYXIS) 30 ML UDC JT SCH ×2 (08:59→17:59)
[2018-06-08] MEDS: Z GUARD REMEDY 4 OZ OINT TP SCH ×2 (09:00→21:19)
[2018-06-08] MEDS: COD LIVER OIL/ZINC OXIDE 120 GM TUBE TP SCH ×2 (09:00→17:00)
[2018-06-08] MEDS: VITS A AND D/WHITE PET/LANOLIN 5 GM PACKET TP SCH ×2 (09:00→21:20)
[2018-06-08] MEDS: HYDROGEN PEROXIDE 480 ML BOTTLE TP SCH ×2 (09:00→21:19)
[2018-06-08] MEDS: JEVITY 1.2 CAL 1,000 ML BOTTLE JT PRN (19:01)
[2018-06-08 19:35] VITALS: BP 97/60
--- NOTE | 2018-06-08 20:06 | NUR ---
RT NOTE PATIENT RECEIVED TRACH'D ON MECHANICAL VENT. NO SIGNS OF RESPIRATORY DISTRESS NOTED. TRACH IS PATENT AND SECURE. PATIENT IS TOLERATING CURRENT ORDERED VENT SETTINGS. MECHANICAL VENT IS PLUGGED INTO RED OUTLET. ALARMS ARE SET AND AUDIBLE. EMERGENCY EQUIPMENT AT PATIENT BEDSIDE. WILL CONTINUE TO MONITOR PATIENT. Addendum: 06/08/18 at 2038 by CHONG JUSTIN RT Amended: Links added.
[2018-06-08] MEDS: POLYETHYLENE GLYCOL 3350 17 GM POWD.PACK GT SCH (21:20)
[2018-06-09] MEDS: IPRATROPIUM NEB FS 0.5 MG/2.5 ML AMPUL.NEB NEB SCH ×4 (02:14→19:43)
[2018-06-09] MEDS: ALBUTEROL FS 2.5 MG/3 ML VIAL.NEB NEB SCH ×4 (02:14→19:43)
[2018-06-09] MEDS: ERYTHROMYCIN STEARATE 250 MG TABLET GT SCH ×3 (06:08→18:36)
[2018-06-09 07:37] VITALS: BP 114/53
--- NOTE | 2018-06-09 08:05 | NUR ---
RT NOTE: PATIENT RECEIVED TRACHED ON MECHANICAL VENT. ALARMS VERIFIED AND AUDIBLE. SUCTIONED AND LAVAGED LARGE AMOUNT OF THICK [place] SECRETIONS. AMBU BAG AND NEW TRACH AT [facility].
[2018-06-09] MEDS: HYDROGEN PEROXIDE 480 ML BOTTLE TP SCH ×2 (09:00→20:45)
[2018-06-09] MEDS: COD LIVER OIL/ZINC OXIDE 120 GM TUBE TP SCH ×2 (09:00→17:00)
[2018-06-09] MEDS: VITS A AND D/WHITE PET/LANOLIN 5 GM PACKET TP SCH ×2 (09:00→20:45)
[2018-06-09] MEDS: NYSTATIN TOP POWDER 15 GM BOTTLE TP SCH ×2 (09:00→20:45)
[2018-06-09] MEDS: Z GUARD REMEDY 4 OZ OINT TP SCH ×2 (09:00→20:45)
[2018-06-09] MEDS: POLYVINYL ALCOHOL 15 ML BOTTLE EACHEYE SCH ×4 (09:14→20:43)
[2018-06-09] MEDS: RANITIDINE GT SCH ×2 (09:15→20:44)
[2018-06-09] MEDS: LEVETIRACETAM SOL (5 ML) 100 MG/ML UDC GT SCH ×2 (09:15→20:44)
[2018-06-09] MEDS: PROSOURCE / PROSTAT (PYXIS) 30 ML UDC JT SCH ×2 (09:15→16:55)
--- NOTE | 2018-06-09 11:10 | NUR ---
RT NOTE: WHILE DOING A ROUTINE VENT CHECK, AWAKE PATIENT GRABBED MY HAND AND MADE INAPPROPRIATE HAND GESTURES WITH HIS RIGHT HAND. I IMMEDIATELY PULLED AWAY AND LEFT THE ROOM TO REPORT PATIENT'S ACTIONS TO CHARGE NURSE(CARLSO).
--- NOTE | 2018-06-09 11:15 | NUR ---
RT Reported to me that patient has inappropriate behavior when she was suctioning him. Patients' dad came in to visit this morning, patients' dad made aware of his inappropriate behavior, patients' dad called his sister too, spoke to Ms Mayes. She said she will talk to her brother to talk to his son that his inappropriate behavior is not right. Patient awake in bed, calm at this time, his father brought those plastic bubble pack and makes Krishna preoccupied. Patients' father at bedside, he is interacting with the patient. Patient closely monitored.
[2018-06-09 20:30] VITALS: BP 106/66
--- NOTE | 2018-06-09 21:30 | NUR ---
RT NOTE PATIENT WAS RECEIVED ON CONTINUOUS VENT SUPPORT ON NOTED VENT SETTINGS. HHN INLINE TREATMENT WAS GIVEN, NO ADVERSE REACTION NOTED ,PRN SUCTION WAS DONE. TRACH TUBE PATENT AND SECURED. ALARMS ON AND AUDIBLE. JEREMY AND CHARISSA DC AT [facility]. WILL CONTINUE TO MONITOR PATIENT Addendum: 06/09/18 at 2131 by HARLEY MUNIZ RT Amended: Links added.
[2018-06-09] MEDS: POLYETHYLENE GLYCOL 3350 17 GM POWD.PACK GT SCH (21:54)
[2018-06-10] MEDS: ERYTHROMYCIN STEARATE 250 MG TABLET GT SCH ×5 (00:49→23:58)
[2018-06-10] MEDS: JEVITY 1.2 CAL 1,000 ML BOTTLE JT PRN (00:53)
[2018-06-10] MEDS: IPRATROPIUM NEB FS 0.5 MG/2.5 ML AMPUL.NEB NEB SCH ×4 (01:42→19:58)
[2018-06-10] MEDS: ALBUTEROL FS 2.5 MG/3 ML VIAL.NEB NEB SCH ×4 (01:42→19:58)
[2018-06-10 08:02] VITALS: BP 112/72
[2018-06-10] MEDS: NYSTATIN TOP POWDER 15 GM BOTTLE TP SCH ×2 (09:00→20:40)
[2018-06-10] MEDS: Z GUARD REMEDY 4 OZ OINT TP SCH ×2 (09:00→20:40)
[2018-06-10] MEDS: VITS A AND D/WHITE PET/LANOLIN 5 GM PACKET TP SCH ×2 (09:00→20:40)
[2018-06-10] MEDS: HYDROGEN PEROXIDE 480 ML BOTTLE TP SCH ×2 (09:00→20:40)
[2018-06-10] MEDS: COD LIVER OIL/ZINC OXIDE 120 GM TUBE TP SCH ×2 (09:00→17:11)
[2018-06-10] MEDS: POLYVINYL ALCOHOL 15 ML BOTTLE EACHEYE SCH ×4 (09:07→20:39)
[2018-06-10] MEDS: LEVETIRACETAM SOL (5 ML) 100 MG/ML UDC GT SCH ×2 (09:07→20:40)
[2018-06-10] MEDS: RANITIDINE GT SCH ×2 (09:07→20:39)
[2018-06-10] MEDS: PROSOURCE / PROSTAT (PYXIS) 30 ML UDC JT SCH ×2 (09:08→17:11)
--- NOTE | 2018-06-10 16:02 | NUR ---
SW talked to pt's aunt about pt's inappropriate behavior as claimed by one of the nurses. Aunt's said she was aware of the incident, she someone had called her during the weekend. Aunt said that she does not know what else to do, since she had already spoken with pt several times about these behaviors.
--- NOTE | 2018-06-10 16:04 | NUR ---
SW filled out a legal form as requested by pt's uncle and gave it to charge nurse Teresita. This form will be signed by pt's doctor to indicate client's inability to attend court hearing about pt. citizenship.
[2018-06-10 20:46] VITALS: BP 100/61
[2018-06-10] MEDS: POLYETHYLENE GLYCOL 3350 17 GM POWD.PACK GT SCH (21:23)
[2018-06-11] MEDS: IPRATROPIUM NEB FS 0.5 MG/2.5 ML AMPUL.NEB NEB SCH ×4 (02:27→19:15)
[2018-06-11] MEDS: ALBUTEROL FS 2.5 MG/3 ML VIAL.NEB NEB SCH ×4 (02:27→19:16)
[2018-06-11] MEDS: JEVITY 1.2 CAL 1,000 ML BOTTLE JT PRN (03:40)
[2018-06-11] MEDS: ERYTHROMYCIN STEARATE 250 MG TABLET GT SCH ×3 (05:52→18:53)
--- NOTE | 2018-06-11 07:29 | NUR ---
Male trach pt received unlabored on a mechanical vent. Pt wade is secure. Vent is plugged into a red outlet, alarms are set and audible, and BMV is at bedside. Addendum: 06/11/18 at 0730 by ANGELO RIZVI RT Amended: Links added.
[2018-06-11 07:31] VITALS: BP 104/59
[2018-06-11] MEDS: Z GUARD REMEDY 4 OZ OINT TP SCH ×2 (09:00→20:49)
[2018-06-11] MEDS: HYDROGEN PEROXIDE 480 ML BOTTLE TP SCH ×2 (09:00→20:48)
[2018-06-11] MEDS: NYSTATIN TOP POWDER 15 GM BOTTLE TP SCH ×2 (09:00→20:48)
[2018-06-11] MEDS: VITS A AND D/WHITE PET/LANOLIN 5 GM PACKET TP SCH ×2 (09:00→20:49)
[2018-06-11] MEDS: COD LIVER OIL/ZINC OXIDE 120 GM TUBE TP SCH ×2 (09:00→16:50)
[2018-06-11] MEDS: POLYVINYL ALCOHOL 15 ML BOTTLE EACHEYE SCH ×4 (09:03→20:47)
[2018-06-11] MEDS: PROSOURCE / PROSTAT (PYXIS) 30 ML UDC JT SCH ×2 (09:04→16:50)
[2018-06-11] MEDS: LEVETIRACETAM SOL (5 ML) 100 MG/ML UDC GT SCH ×2 (09:04→20:48)
[2018-06-11] MEDS: RANITIDINE GT SCH ×2 (09:04→20:48)
[2018-06-11 20:51] VITALS: BP 102/55
[2018-06-11] MEDS: POLYETHYLENE GLYCOL 3350 17 GM POWD.PACK GT SCH (21:46)
[2018-06-12] MEDS: ERYTHROMYCIN STEARATE 250 MG TABLET GT SCH ×5 (00:06→23:22)
[2018-06-12] MEDS: ALBUTEROL FS 2.5 MG/3 ML VIAL.NEB NEB SCH ×4 (00:45→19:54)
[2018-06-12] MEDS: IPRATROPIUM NEB FS 0.5 MG/2.5 ML AMPUL.NEB NEB SCH ×4 (00:45→19:54)
[2018-06-12] MEDS: JEVITY 1.2 CAL 1,000 ML BOTTLE JT PRN (03:52)
[2018-06-12 07:41] VITALS: BP 101/55
[2018-06-12] MEDS: NYSTATIN TOP POWDER 15 GM BOTTLE TP SCH ×2 (09:00→21:05)
[2018-06-12] MEDS: HYDROGEN PEROXIDE 480 ML BOTTLE TP SCH ×2 (09:00→21:05)
[2018-06-12] MEDS: POLYVINYL ALCOHOL 15 ML BOTTLE EACHEYE SCH ×4 (09:00→21:05)
[2018-06-12] MEDS: LEVETIRACETAM SOL (5 ML) 100 MG/ML UDC GT SCH ×2 (09:00→21:05)
[2018-06-12] MEDS: Z GUARD REMEDY 4 OZ OINT TP SCH ×2 (09:00→21:05)
[2018-06-12] MEDS: COD LIVER OIL/ZINC OXIDE 120 GM TUBE TP SCH ×2 (09:00→16:32)
[2018-06-12] MEDS: VITS A AND D/WHITE PET/LANOLIN 5 GM PACKET TP SCH ×2 (09:00→21:06)
[2018-06-12] MEDS: PROSOURCE / PROSTAT (PYXIS) 30 ML UDC JT SCH ×2 (09:00→16:31)
[2018-06-12] MEDS: RANITIDINE GT SCH ×2 (09:00→21:05)
--- NOTE | 2018-06-12 19:30 | NUR ---
Asked L D RN Mi Kerr regarding tax expert plan for patient's JT/GT. According to Mi nothing to be done for now as long as JT/GT is not creating a problem. Endorsed.
[2018-06-12 20:11] VITALS: BP 127/74
[2018-06-12] MEDS: POLYETHYLENE GLYCOL 3350 17 GM POWD.PACK GT SCH (21:06)
[2018-06-13] MEDS: ALBUTEROL FS 2.5 MG/3 ML VIAL.NEB NEB SCH ×4 (01:50→19:37)
[2018-06-13] MEDS: IPRATROPIUM NEB FS 0.5 MG/2.5 ML AMPUL.NEB NEB SCH ×4 (01:50→19:37)
[2018-06-13] MEDS: ERYTHROMYCIN STEARATE 250 MG TABLET GT SCH ×3 (06:02→17:49)
[2018-06-13] MEDS: JEVITY 1.2 CAL 1,000 ML BOTTLE JT PRN (06:02)
--- NOTE | 2018-06-13 07:24 | NUR ---
Received male wade pt on a mechanical vent. Pt wade is secure. Vent is plugged into a red outlet, alarms are set and audible, and BMV is at bedside. Addendum: 06/13/18 at 0724 by ANGELO RIZVI RT Amended: Links added.
[2018-06-13 07:36] VITALS: BP 114/68
--- NOTE | 2018-06-13 08:24 | NUR ---
Yanira Rosa (RT) reported to that on SundayJune 09, while doing a routine vent check for patient, he grabbed her hand and made an inappropriate hand gesture with his right hand. She said she immediately pulled away and left the room to report this incident to charge nurse Gloria.
[2018-06-13] MEDS: POLYVINYL ALCOHOL 15 ML BOTTLE EACHEYE SCH ×4 (09:33→21:40)
[2018-06-13] MEDS: PROSOURCE / PROSTAT (PYXIS) 30 ML UDC JT SCH ×2 (09:33→16:31)
[2018-06-13] MEDS: RANITIDINE GT SCH ×2 (09:33→21:40)
[2018-06-13] MEDS: LEVETIRACETAM SOL (5 ML) 100 MG/ML UDC GT SCH ×2 (09:33→21:40)
[2018-06-13] MEDS: NYSTATIN TOP POWDER 15 GM BOTTLE TP SCH ×2 (09:56→21:40)
[2018-06-13] MEDS: HYDROGEN PEROXIDE 480 ML BOTTLE TP SCH ×2 (09:56→21:40)
[2018-06-13] MEDS: VITS A AND D/WHITE PET/LANOLIN 5 GM PACKET TP SCH ×2 (09:56→21:40)
[2018-06-13] MEDS: COD LIVER OIL/ZINC OXIDE 120 GM TUBE TP SCH ×2 (09:56→17:49)
[2018-06-13] MEDS: Z GUARD REMEDY 4 OZ OINT TP SCH ×2 (09:56→21:40)
--- NOTE | 2018-06-13 19:30 | NUR ---
Seen by XAVI Mike,new orders to d/c Zofran and Benadryl IV change to GT.
[2018-06-13 20:02] VITALS: BP 100/50
[2018-06-13] MEDS ORDERED: ONDANSETRON 4 MG TAB.RAPDIS GT PRN (20:30)
[2018-06-13] MEDS ORDERED: DIPHENHYDRAMINE HCL 12.5 MG/5 ML UDC GT PRN (20:30)
[2018-06-13] MEDS: POLYETHYLENE GLYCOL 3350 17 GM POWD.PACK GT SCH (21:40)
[2018-06-14] MEDS: ERYTHROMYCIN STEARATE 250 MG TABLET GT SCH ×4 (00:18→17:23)
[2018-06-14] MEDS: ALBUTEROL FS 2.5 MG/3 ML VIAL.NEB NEB SCH ×4 (01:06→19:48)
[2018-06-14] MEDS: IPRATROPIUM NEB FS 0.5 MG/2.5 ML AMPUL.NEB NEB SCH ×4 (01:06→19:48)
[2018-06-14] MEDS: JEVITY 1.2 CAL 1,000 ML BOTTLE JT PRN (06:29)
[2018-06-14 07:39] VITALS: BP 89/51
--- NOTE | 2018-06-14 08:20 | NUR ---
PT RCVD TRACH'D ON MECHANICAL VENT WITH CHARTED SETTINGS. HHN TX BRAULIO WELL. SX DONE. PT TRACH IS PATENT AND SECURE. VENT PLUGGED INTO RED OUTLET. ALARMS APPEAR TO BE FUNCTIONING PROPERLY. AMBU BAG AT BEDSIDE. WILL CONTINUE TO MONITOR. Addendum: 06/14/18 at 0821 by STANFROD PETERS RT Amended: Links added.
[2018-06-14] MEDS: POLYVINYL ALCOHOL 15 ML BOTTLE EACHEYE SCH ×4 (08:56→21:00)
[2018-06-14] MEDS: RANITIDINE GT SCH ×2 (08:56→21:00)
[2018-06-14] MEDS: PROSOURCE / PROSTAT (PYXIS) 30 ML UDC JT SCH ×2 (08:56→17:22)
[2018-06-14] MEDS: LEVETIRACETAM SOL (5 ML) 100 MG/ML UDC GT SCH ×2 (08:56→21:00)
[2018-06-14] MEDS: COD LIVER OIL/ZINC OXIDE 120 GM TUBE TP SCH ×2 (09:00→17:22)
[2018-06-14] MEDS: HYDROGEN PEROXIDE 480 ML BOTTLE TP SCH ×2 (09:00→21:00)
[2018-06-14] MEDS: Z GUARD REMEDY 4 OZ OINT TP SCH ×2 (09:00→21:00)
[2018-06-14] MEDS: VITS A AND D/WHITE PET/LANOLIN 5 GM PACKET TP SCH ×2 (09:00→21:00)
[2018-06-14] MEDS: NYSTATIN TOP POWDER 15 GM BOTTLE TP SCH ×2 (09:00→21:00)
[2018-06-14 20:00] VITALS: BP 99/66
[2018-06-14 20:16] VITALS: BP 99/66
[2018-06-14] MEDS: POLYETHYLENE GLYCOL 3350 17 GM POWD.PACK GT SCH (22:24)
[2018-06-15] MEDS: ERYTHROMYCIN STEARATE 250 MG TABLET GT SCH ×5 (00:29→23:22)
[2018-06-15] MEDS: ALBUTEROL FS 2.5 MG/3 ML VIAL.NEB NEB SCH ×4 (01:08→19:36)
[2018-06-15] MEDS: IPRATROPIUM NEB FS 0.5 MG/2.5 ML AMPUL.NEB NEB SCH ×4 (01:08→19:36)
[2018-06-15 07:31] VITALS: BP 101/59
[2018-06-15] MEDS: POLYVINYL ALCOHOL 15 ML BOTTLE EACHEYE SCH ×4 (09:25→21:15)
[2018-06-15] MEDS: PROSOURCE / PROSTAT (PYXIS) 30 ML UDC JT SCH ×2 (09:27→17:13)
[2018-06-15] MEDS: LEVETIRACETAM SOL (5 ML) 100 MG/ML UDC GT SCH ×2 (09:27→21:17)
[2018-06-15] MEDS: COD LIVER OIL/ZINC OXIDE 120 GM TUBE TP SCH ×2 (09:27→17:14)
[2018-06-15] MEDS: RANITIDINE GT SCH ×2 (09:27→21:16)
[2018-06-15] MEDS: HYDROGEN PEROXIDE 480 ML BOTTLE TP SCH ×2 (09:28→21:17)
[2018-06-15] MEDS: NYSTATIN TOP POWDER 15 GM BOTTLE TP SCH ×2 (09:28→21:17)
[2018-06-15] MEDS: Z GUARD REMEDY 4 OZ OINT TP SCH ×2 (09:28→21:17)
[2018-06-15] MEDS: VITS A AND D/WHITE PET/LANOLIN 5 GM PACKET TP SCH ×2 (09:29→21:17)
[2018-06-15 19:35] VITALS: BP 91/59
[2018-06-15] MEDS: POLYETHYLENE GLYCOL 3350 17 GM POWD.PACK GT SCH (21:17)
[2018-06-16] MEDS: ALBUTEROL FS 2.5 MG/3 ML VIAL.NEB NEB SCH ×4 (01:30→19:52)
[2018-06-16] MEDS: IPRATROPIUM NEB FS 0.5 MG/2.5 ML AMPUL.NEB NEB SCH ×4 (01:30→19:52)
[2018-06-16] MEDS: ERYTHROMYCIN STEARATE 250 MG TABLET GT SCH ×4 (05:48→23:55)
[2018-06-16 08:01] VITALS: BP 101/56
[2018-06-16] MEDS: RANITIDINE GT SCH ×2 (09:00→21:14)
[2018-06-16] MEDS: HYDROGEN PEROXIDE 480 ML BOTTLE TP SCH ×2 (09:00→21:14)
[2018-06-16] MEDS: VITS A AND D/WHITE PET/LANOLIN 5 GM PACKET TP SCH ×2 (09:00→21:15)
[2018-06-16] MEDS: NYSTATIN TOP POWDER 15 GM BOTTLE TP SCH ×2 (09:00→21:14)
[2018-06-16] MEDS: Z GUARD REMEDY 4 OZ OINT TP SCH ×2 (09:00→21:14)
[2018-06-16] MEDS: COD LIVER OIL/ZINC OXIDE 120 GM TUBE TP SCH ×2 (09:00→17:00)
[2018-06-16] MEDS: POLYVINYL ALCOHOL 15 ML BOTTLE EACHEYE SCH ×4 (09:00→21:14)
[2018-06-16] MEDS: LEVETIRACETAM SOL (5 ML) 100 MG/ML UDC GT SCH ×2 (09:00→21:14)
[2018-06-16] MEDS: PROSOURCE / PROSTAT (PYXIS) 30 ML UDC JT SCH ×2 (09:00→17:00)
[2018-06-16 20:44] VITALS: BP 94/63
[2018-06-16] MEDS: POLYETHYLENE GLYCOL 3350 17 GM POWD.PACK GT SCH (21:15)
--- NOTE | 2018-06-16 23:37 | NUR ---
PT RCVD TRACH'D ON MECHANICAL VENT WITH CHARTED SETTINGS. HHN TX BRAULIO WELL. SX DONE. PT TRACH IS PATENT AND SECURE. VENT PLUGGED INTO RED OUTLET. ALARMS APPEAR TO BE FUNCTIONING PROPERLY. AMBU BAG AT BEDSIDE. WILL CONTINUE TO MONITOR. Addendum: 06/16/18 at 2338 by STANFORD PETERS RT Amended: Links added.
[2018-06-17] MEDS: ALBUTEROL FS 2.5 MG/3 ML VIAL.NEB NEB SCH ×4 (00:57→20:12)
[2018-06-17] MEDS: IPRATROPIUM NEB FS 0.5 MG/2.5 ML AMPUL.NEB NEB SCH ×4 (00:57→20:12)
[2018-06-17] MEDS: ERYTHROMYCIN STEARATE 250 MG TABLET GT SCH ×3 (05:06→18:30)
[2018-06-17] MEDS: JEVITY 1.2 CAL 1,000 ML BOTTLE JT PRN (05:57)
[2018-06-17 07:28] VITALS: BP 108/67
[2018-06-17] MEDS: POLYVINYL ALCOHOL 15 ML BOTTLE EACHEYE SCH ×4 (08:59→20:38)
[2018-06-17] MEDS: RANITIDINE GT SCH ×2 (09:13→20:39)
[2018-06-17] MEDS: COD LIVER OIL/ZINC OXIDE 120 GM TUBE TP SCH ×2 (09:13→17:34)
[2018-06-17] MEDS: LEVETIRACETAM SOL (5 ML) 100 MG/ML UDC GT SCH ×2 (09:13→20:40)
[2018-06-17] MEDS: PROSOURCE / PROSTAT (PYXIS) 30 ML UDC JT SCH ×2 (09:13→17:34)
[2018-06-17] MEDS: HYDROGEN PEROXIDE 480 ML BOTTLE TP SCH ×2 (09:13→20:40)
[2018-06-17] MEDS: NYSTATIN TOP POWDER 15 GM BOTTLE TP SCH ×2 (09:15→20:40)
[2018-06-17] MEDS: Z GUARD REMEDY 4 OZ OINT TP SCH ×2 (09:15→20:40)
[2018-06-17] MEDS: VITS A AND D/WHITE PET/LANOLIN 5 GM PACKET TP SCH ×2 (09:15→20:40)
[2018-06-17 20:11] VITALS: BP 100/72
[2018-06-17] MEDS: POLYETHYLENE GLYCOL 3350 17 GM POWD.PACK GT SCH (21:29)
[2018-06-18] MEDS: ERYTHROMYCIN STEARATE 250 MG TABLET GT SCH ×4 (00:21→18:47)
[2018-06-18] MEDS: IPRATROPIUM NEB FS 0.5 MG/2.5 ML AMPUL.NEB NEB SCH ×4 (01:24→19:30)
[2018-06-18] MEDS: ALBUTEROL FS 2.5 MG/3 ML VIAL.NEB NEB SCH ×4 (01:24→19:30)
[2018-06-18] MEDS: JEVITY 1.2 CAL 1,000 ML BOTTLE JT PRN (04:25)
--- NOTE | 2018-06-18 07:28 | NUR ---
Male trach pt received unlabored on a mechanical vent. Pt wade is secure. Vent is plugged into a red outlet, alarms are set and audible, and BMV is at bedside. Addendum: 06/18/18 at 0728 by ANGELO RIZVI RT Amended: Links added.
[2018-06-18 07:56] VITALS: BP 98/63
[2018-06-18] MEDS: RANITIDINE GT SCH ×2 (09:49→20:55)
[2018-06-18] MEDS: PROSOURCE / PROSTAT (PYXIS) 30 ML UDC JT SCH ×2 (09:49→16:51)
[2018-06-18] MEDS: COD LIVER OIL/ZINC OXIDE 120 GM TUBE TP SCH ×2 (09:49→16:51)
[2018-06-18] MEDS: HYDROGEN PEROXIDE 480 ML BOTTLE TP SCH ×2 (09:49→20:56)
[2018-06-18] MEDS: POLYVINYL ALCOHOL 15 ML BOTTLE EACHEYE SCH ×4 (09:49→20:55)
[2018-06-18] MEDS: LEVETIRACETAM SOL (5 ML) 100 MG/ML UDC GT SCH ×2 (09:49→20:55)
[2018-06-18] MEDS: VITS A AND D/WHITE PET/LANOLIN 5 GM PACKET TP SCH ×2 (09:50→20:56)
[2018-06-18] MEDS: NYSTATIN TOP POWDER 15 GM BOTTLE TP SCH ×2 (09:50→20:56)
[2018-06-18] MEDS: Z GUARD REMEDY 4 OZ OINT TP SCH ×2 (09:50→20:56)
[2018-06-18 20:35] VITALS: BP 100/57
[2018-06-18] MEDS: POLYETHYLENE GLYCOL 3350 17 GM POWD.PACK GT SCH (21:28)
[2018-06-19] MEDS: ERYTHROMYCIN STEARATE 250 MG TABLET GT SCH ×5 (00:07→23:25)
[2018-06-19] MEDS: ALBUTEROL FS 2.5 MG/3 ML VIAL.NEB NEB SCH ×4 (02:24→19:58)
[2018-06-19] MEDS: IPRATROPIUM NEB FS 0.5 MG/2.5 ML AMPUL.NEB NEB SCH ×4 (02:24→19:58)
[2018-06-19] MEDS: JEVITY 1.2 CAL 1,000 ML BOTTLE JT PRN (05:38)
[2018-06-19 08:04] VITALS: BP 94/56
[2018-06-19] MEDS: POLYVINYL ALCOHOL 15 ML BOTTLE EACHEYE SCH ×4 (08:33→21:16)
[2018-06-19] MEDS: LEVETIRACETAM SOL (5 ML) 100 MG/ML UDC GT SCH ×2 (08:33→21:17)
[2018-06-19] MEDS: PROSOURCE / PROSTAT (PYXIS) 30 ML UDC JT SCH ×2 (08:33→17:27)
[2018-06-19] MEDS: RANITIDINE GT SCH ×2 (08:33→21:16)
[2018-06-19] MEDS: HYDROGEN PEROXIDE 480 ML BOTTLE TP SCH ×2 (09:00→21:17)
[2018-06-19] MEDS: VITS A AND D/WHITE PET/LANOLIN 5 GM PACKET TP SCH ×2 (09:00→21:17)
[2018-06-19] MEDS: NYSTATIN TOP POWDER 15 GM BOTTLE TP SCH ×2 (09:00→21:17)
[2018-06-19] MEDS: Z GUARD REMEDY 4 OZ OINT TP SCH ×2 (09:00→21:17)
[2018-06-19] MEDS: COD LIVER OIL/ZINC OXIDE 120 GM TUBE TP SCH ×2 (09:00→17:27)
--- NOTE | 2018-06-19 11:15 | NUR ---
Family at bedside and asked about resident's need for [facility] decorating kiln operator to speak with healthcare providers. Aunt, Sugey, said no need for decorating kiln operator since resident is non verbal at present and has limited learning ability with only 2 years of schooling. She doubts that resident fully understands basic [place] words which staff would use while gesturing but believes resident actually responds well to the gestures/actions that staff performs so just continue to communicate with him that way. Aunt confirms resident recognizes family members at this time and may know where he is but has disorientation to time. Also asked aunt about MDS BIMS interview in [facility], said not to bother really since it might not be reliable due to cognitive limitation. Resident able to point at large prints questionnaire for answers in previous BIMS attempts but with low scores. Refused to participate in BIMS interview this assessment. Addendum: 06/19/18 at 1521 by DEMETRIA MCCONNELL RN addendum. Family said they do ask resident about any episode of pain whenever they visit and said resident has no pain. Tylenol PRN not used so far this year.
--- NOTE | 2018-06-19 19:58 | NUR ---
RT NOTE: RECEIVED TRACH PT ON [facility] VENT ON NOTED SETTINGS PER MD ORDERS. TRACH IS PATENT AND SECURED. INSPECTOR AND CLERK DONE. Q6 BREATHING TX GIVEN WITH NO ADVERSE REACTION NOTED. SX DONE PRN. VENT PLUGGED INTO RED OUTLET. ALARMS ON AND AUDIBLE. RAGHU BAG @ BEDSIDE. NO RESP DISTRESS AT THIS TIME. WILL CONT TO MONITOR PT. Addendum: 06/20/18 at 0147 by CIRILO LOZOYA RT Amended: Links added.
[2018-06-19 20:09] VITALS: BP 103/59
[2018-06-19] MEDS: POLYETHYLENE GLYCOL 3350 17 GM POWD.PACK GT SCH (21:17)
[2018-06-20] MEDS: ALBUTEROL FS 2.5 MG/3 ML VIAL.NEB NEB SCH ×4 (01:25→19:48)
[2018-06-20] MEDS: IPRATROPIUM NEB FS 0.5 MG/2.5 ML AMPUL.NEB NEB SCH ×3 (01:25→13:58)
[2018-06-20] MEDS: ERYTHROMYCIN STEARATE 250 MG TABLET GT SCH ×4 (05:50→23:31)
[2018-06-20] MEDS: JEVITY 1.2 CAL 1,000 ML BOTTLE JT PRN (06:30)
[2018-06-20 07:48] VITALS: BP 111/71
[2018-06-20] MEDS: LEVETIRACETAM SOL (5 ML) 100 MG/ML UDC GT SCH ×2 (09:00→21:36)
[2018-06-20] MEDS: Z GUARD REMEDY 4 OZ OINT TP SCH ×2 (09:00→21:36)
[2018-06-20] MEDS: PROSOURCE / PROSTAT (PYXIS) 30 ML UDC JT SCH ×2 (09:00→17:36)
[2018-06-20] MEDS: RANITIDINE GT SCH ×2 (09:00→21:36)
[2018-06-20] MEDS: HYDROGEN PEROXIDE 480 ML BOTTLE TP SCH ×2 (09:00→21:36)
[2018-06-20] MEDS: VITS A AND D/WHITE PET/LANOLIN 5 GM PACKET TP SCH ×2 (09:00→21:37)
[2018-06-20] MEDS: NYSTATIN TOP POWDER 15 GM BOTTLE TP SCH ×2 (09:00→21:36)
[2018-06-20] MEDS: POLYVINYL ALCOHOL 15 ML BOTTLE EACHEYE SCH ×4 (09:00→21:36)
[2018-06-20] MEDS: COD LIVER OIL/ZINC OXIDE 120 GM TUBE TP SCH ×2 (09:00→17:36)
--- NOTE | 2018-06-20 18:38 | NUR ---
Seen by DIRECTOR DIGITAL SALES Germaine Mike. Informed her that Atrovent is not covered by insurance, Spiriva is the covered alternative. She did not order Spiriva since pt is on a vent. She ordered to DC Atrovent for now and see if pt is fine with Albuterol only. She said she will notify Dr Cleveland.
[2018-06-20 20:39] VITALS: BP 105/61
[2018-06-20] MEDS: POLYETHYLENE GLYCOL 3350 17 GM POWD.PACK GT SCH (21:37)
[2018-06-21] MEDS: JEVITY 1.2 CAL 1,000 ML BOTTLE JT PRN
[2018-06-21] MEDS: ALBUTEROL FS 2.5 MG/3 ML VIAL.NEB NEB SCH ×4 (01:23→19:30)
[2018-06-21] MEDS: ERYTHROMYCIN STEARATE 250 MG TABLET GT SCH ×4 (05:24→23:39)
[2018-06-21 07:46] VITALS: BP 101/56
--- NOTE | 2018-06-21 09:51 | NUR ---
IDT mtg was held today. Resident's family member were not able to attended. Dr. Cleveland and the interdisciplinary team discussed the current plan of care in detail. Current orders as well as treatments and medications were reviewed. CBC/BMP to be done on Sunday. Resident's inappropriate was discussed with Dr. Cleveland and team. SW suggested staff should correct resident immediately after observing resident's behavior.
[2018-06-21] MEDS: POLYVINYL ALCOHOL 15 ML BOTTLE EACHEYE SCH ×4 (09:56→21:16)
[2018-06-21] MEDS: LEVETIRACETAM SOL (5 ML) 100 MG/ML UDC GT SCH ×2 (09:57→21:16)
[2018-06-21] MEDS: PROSOURCE / PROSTAT (PYXIS) 30 ML UDC JT SCH ×2 (09:57→17:20)
[2018-06-21] MEDS: NYSTATIN TOP POWDER 15 GM BOTTLE TP SCH ×2 (09:57→21:16)
[2018-06-21] MEDS: Z GUARD REMEDY 4 OZ OINT TP SCH ×2 (09:57→21:16)
[2018-06-21] MEDS: HYDROGEN PEROXIDE 480 ML BOTTLE TP SCH ×2 (09:57→21:16)
[2018-06-21] MEDS: COD LIVER OIL/ZINC OXIDE 120 GM TUBE TP SCH ×2 (09:57→17:20)
[2018-06-21] MEDS: VITS A AND D/WHITE PET/LANOLIN 5 GM PACKET TP SCH ×2 (09:57→21:16)
[2018-06-21] MEDS: RANITIDINE GT SCH ×2 (09:57→21:16)
[2018-06-21 20:10] VITALS: BP 106/66
--- NOTE | 2018-06-21 20:11 | NUR ---
RT NOTE PATIENT RECEIVED ON MECHANICAL VENTILATION. AMBU BAG/BACK UP TRACH @ BEDSIDE. VENT PLUGGED INTO RED OUTLET. PATIENT REFUSED TX/SX AT THIS TIME. ALARMS ON AND AUDIBLE. PATIENT STABLE, NO SOB NOTED. PULSE OX CONNECTED. WILL MONITOR T/O SHIFT. Addendum: 06/21/18 at 2012 by MILAN CARRASCO RT Amended: Links added.
[2018-06-21] MEDS: POLYETHYLENE GLYCOL 3350 17 GM POWD.PACK GT SCH (21:16)
[2018-06-22] MEDS: ALBUTEROL FS 2.5 MG/3 ML VIAL.NEB NEB SCH ×4 (01:21→19:38)
[2018-06-22] MEDS: JEVITY 1.2 CAL 1,000 ML BOTTLE JT PRN (05:30)
[2018-06-22] MEDS: ERYTHROMYCIN STEARATE 250 MG TABLET GT SCH ×3 (05:47→17:48)
[2018-06-22 08:04] VITALS: BP 110/55
[2018-06-22] MEDS: PROSOURCE / PROSTAT (PYXIS) 30 ML UDC JT SCH ×2 (09:09→17:48)
[2018-06-22] MEDS: NYSTATIN TOP POWDER 15 GM BOTTLE TP SCH ×2 (09:09→21:00)
[2018-06-22] MEDS: COD LIVER OIL/ZINC OXIDE 120 GM TUBE TP SCH ×2 (09:09→17:48)
[2018-06-22] MEDS: POLYVINYL ALCOHOL 15 ML BOTTLE EACHEYE SCH ×4 (09:09→21:00)
[2018-06-22] MEDS: HYDROGEN PEROXIDE 480 ML BOTTLE TP SCH ×2 (09:09→21:00)
[2018-06-22] MEDS: RANITIDINE GT SCH ×2 (09:09→21:00)
[2018-06-22] MEDS: LEVETIRACETAM SOL (5 ML) 100 MG/ML UDC GT SCH ×2 (09:09→21:00)
[2018-06-22] MEDS: Z GUARD REMEDY 4 OZ OINT TP SCH ×2 (09:10→21:00)
[2018-06-22] MEDS: VITS A AND D/WHITE PET/LANOLIN 5 GM PACKET TP SCH ×2 (09:10→21:00)
[2018-06-22 20:01] VITALS: BP 109/67
[2018-06-22] MEDS: POLYETHYLENE GLYCOL 3350 17 GM POWD.PACK GT SCH (22:11)
[2018-06-23] MEDS: ALBUTEROL FS 2.5 MG/3 ML VIAL.NEB NEB SCH ×4 (01:32→19:55)
[2018-06-23] MEDS: JEVITY 1.2 CAL 1,000 ML BOTTLE JT PRN (05:28)
[2018-06-23] MEDS: ERYTHROMYCIN STEARATE 250 MG TABLET GT SCH ×4 (06:12→17:24)
[2018-06-23 07:48] VITALS: BP_SYST 102; BP_SYST 105; BP_DIAS 58
[2018-06-23] MEDS: POLYVINYL ALCOHOL 15 ML BOTTLE EACHEYE SCH ×4 (09:00→21:28)
[2018-06-23] MEDS: COD LIVER OIL/ZINC OXIDE 120 GM TUBE TP SCH ×2 (09:00→17:24)
[2018-06-23] MEDS: VITS A AND D/WHITE PET/LANOLIN 5 GM PACKET TP SCH ×2 (09:00→21:28)
[2018-06-23] MEDS: RANITIDINE GT SCH ×2 (09:00→21:28)
[2018-06-23] MEDS: HYDROGEN PEROXIDE 480 ML BOTTLE TP SCH ×2 (09:00→21:28)
[2018-06-23] MEDS: Z GUARD REMEDY 4 OZ OINT TP SCH ×2 (09:00→21:28)
[2018-06-23] MEDS: LEVETIRACETAM SOL (5 ML) 100 MG/ML UDC GT SCH ×2 (10:00→21:28)
[2018-06-23] MEDS: PROSOURCE / PROSTAT (PYXIS) 30 ML UDC JT SCH ×2 (10:00→17:24)
[2018-06-23 21:12] VITALS: BP 106/63
[2018-06-23] MEDS: POLYETHYLENE GLYCOL 3350 17 GM POWD.PACK GT SCH (21:28)
[2018-06-24] MEDS: ERYTHROMYCIN STEARATE 250 MG TABLET GT SCH ×4 (00:05→17:55)
[2018-06-24] MEDS: ALBUTEROL FS 2.5 MG/3 ML VIAL.NEB NEB SCH ×4 (01:42→19:26)
[2018-06-24 07:22] LABS: BASOPHILS % (AUTO) 0.6 % (0.0-2.0); EOSINOPHILS % (AUTO) 2.4 % (0.0-6.0); HEMATOCRIT 44 % (39-51); HEMOGLOBIN 14.2 g/dL (13.5-17.5); LYMPHOCYTES # (AUTO) 3.3 /CMM (0.8-4.8); LYMPHOCYTES % (AUTO) 37.3 % (20.0-44.0); MEAN CORPUSCULAR HGB CONC 33 g/dl (31.0-36.0); MEAN CORPUSCULAR VOLUME 88 fL (80-96); MONOCYTES # (AUTO) 0.7 /CMM (0.1-1.30); MONOCYTES % (AUTO) 7.3 % (2.0-12.0); NEUTROPHILS # (AUTO) 4.7 /CMM (1.8-8.9); NEUTROPHILS % (AUTO) 52.4 % (43.0-81.0); PLATELET COUNT (AUTO) 238 /CMM (150-450); RED BLOOD CELL COUNT(AUTO) 4.97 MIL/uL (4.5-6.0); WHITE BLOOD COUNT (AUTO) 8.9 K/uL (4.3-11.0)
[2018-06-24 07:36] LABS: CALCIUM, SERUM 10.4 mg/dL (8.5-10.1); CREATININE 0.2 mg/dL (0.6-1.3); POTASSIUM 4.6 mmol/L (3.5-5.1)
[2018-06-24 07:58] VITALS: BP 115/68
[2018-06-24] MEDS: RANITIDINE GT SCH ×2 (09:00→21:15)
[2018-06-24] MEDS: POLYVINYL ALCOHOL 15 ML BOTTLE EACHEYE SCH ×4 (09:00→21:15)
[2018-06-24] MEDS: PROSOURCE / PROSTAT (PYXIS) 30 ML UDC JT SCH ×2 (09:00→17:55)
[2018-06-24] MEDS: HYDROGEN PEROXIDE 480 ML BOTTLE TP SCH ×2 (09:00→21:15)
[2018-06-24] MEDS: VITS A AND D/WHITE PET/LANOLIN 5 GM PACKET TP SCH ×2 (09:00→21:15)
[2018-06-24] MEDS: COD LIVER OIL/ZINC OXIDE 120 GM TUBE TP SCH ×2 (09:00→17:55)
[2018-06-24] MEDS: Z GUARD REMEDY 4 OZ OINT TP SCH ×2 (09:00→21:15)
[2018-06-24] MEDS: LEVETIRACETAM SOL (5 ML) 100 MG/ML UDC GT SCH ×2 (09:00→21:15)
--- NOTE | 2018-06-24 18:19 | NUR ---
Seen by Dr Ledesma today. He will do a right great toe partial avulsion for ingrown toenail on Sunday06/26/18.
[2018-06-24 20:04] VITALS: BP 103/62
[2018-06-24] MEDS: POLYETHYLENE GLYCOL 3350 17 GM POWD.PACK GT SCH (21:15)
[2018-06-25] MEDS: ERYTHROMYCIN STEARATE 250 MG TABLET GT SCH ×5 (00:02→23:47)
[2018-06-25] MEDS: ALBUTEROL FS 2.5 MG/3 ML VIAL.NEB NEB SCH ×4 (01:13→19:53)
--- NOTE | 2018-06-25 07:35 | NUR ---
Received male trach pt unlabored on a mechanical vent. PT wade is secure. Vent is plugged into a red outlet, alarms are set and audible, and BMV is at bedside. Addendum: 06/25/18 at 0737 by ANGELO RIZVI RT Amended: Links added.
[2018-06-25 07:58] VITALS: BP 96/62
[2018-06-25] MEDS: LEVETIRACETAM SOL (5 ML) 100 MG/ML UDC GT SCH ×2 (09:00→21:19)
[2018-06-25] MEDS: VITS A AND D/WHITE PET/LANOLIN 5 GM PACKET TP SCH ×2 (09:00→21:19)
[2018-06-25] MEDS: POLYVINYL ALCOHOL 15 ML BOTTLE EACHEYE SCH ×4 (09:00→21:18)
[2018-06-25] MEDS: HYDROGEN PEROXIDE 480 ML BOTTLE TP SCH ×2 (09:00→21:19)
[2018-06-25] MEDS: PROSOURCE / PROSTAT (PYXIS) 30 ML UDC JT SCH ×2 (09:00→16:47)
[2018-06-25] MEDS: Z GUARD REMEDY 4 OZ OINT TP SCH ×2 (09:00→21:19)
[2018-06-25] MEDS: COD LIVER OIL/ZINC OXIDE 120 GM TUBE TP SCH ×2 (09:00→16:47)
[2018-06-25] MEDS: RANITIDINE GT SCH ×2 (09:00→21:19)
[2018-06-25] MEDS: JEVITY 1.2 CAL 1,000 ML BOTTLE JT PRN (15:49)
[2018-06-25 20:53] VITALS: BP 112/50
[2018-06-25] MEDS: POLYETHYLENE GLYCOL 3350 17 GM POWD.PACK GT SCH (21:19)
[2018-06-26] MEDS: ALBUTEROL FS 2.5 MG/3 ML VIAL.NEB NEB SCH ×4 (01:24→20:13)
[2018-06-26] MEDS: ERYTHROMYCIN STEARATE 250 MG TABLET GT SCH ×3 (05:52→18:04)
[2018-06-26 07:45] VITALS: BP 106/51
[2018-06-26] MEDS: RANITIDINE GT SCH ×2 (09:22→21:17)
[2018-06-26] MEDS: POLYVINYL ALCOHOL 15 ML BOTTLE EACHEYE SCH ×4 (09:22→21:15)
[2018-06-26] MEDS: HYDROGEN PEROXIDE 480 ML BOTTLE TP SCH ×2 (09:23→21:16)
[2018-06-26] MEDS: PROSOURCE / PROSTAT (PYXIS) 30 ML UDC JT SCH ×2 (09:23→16:53)
[2018-06-26] MEDS: Z GUARD REMEDY 4 OZ OINT TP SCH ×2 (09:23→21:16)
[2018-06-26] MEDS: LEVETIRACETAM SOL (5 ML) 100 MG/ML UDC GT SCH ×2 (09:23→21:16)
[2018-06-26] MEDS: COD LIVER OIL/ZINC OXIDE 120 GM TUBE TP SCH ×2 (09:23→16:53)
[2018-06-26] MEDS: VITS A AND D/WHITE PET/LANOLIN 5 GM PACKET TP SCH ×2 (09:23→21:16)
[2018-06-26] MEDS ORDERED: LIDOCAINE 1% INJ 50 ML MDV IJ ONE (12:30)
--- NOTE | 2018-06-26 14:30 | NUR ---
Resident's father signed consent for R great toe partial avulsion due to ingrown toenails. Dr. Ledesma did a partial avulsion of the R great toe,was given local anesthesia. Patient tolerated procedure. New treatment order given to apply triple antibiotic, cover with gauze x 7days. Order noted and carried out.
[2018-06-26] MEDS: JEVITY 1.2 CAL 1,000 ML BOTTLE JT PRN (17:02)
[2018-06-26 20:06] VITALS: BP 141/86
--- NOTE | 2018-06-26 20:13 | NUR ---
RECEIVED TRACH PORTEX 7 PT ON MECH VENT WITH NOTED SETTINGS PER MD ORDERS. PT IS AWAKE AND ALERT. TRACH IS PATENT AND SECURED. LICENSED PHARMACIST DONE. Q6 BREATHING TX GIVEN WITH NO ADVERSE REACTION NOTED. SX DONE PRN. VENT PLUGGED INTO RED OUTLET. ALARMS ON AND AUDIBLE. AMBU BAG @ BEDSIDE. NO RESP DISTRESS AT THIS TIME. WILL CONT TO MONITOR PT.
[2018-06-26] MEDS: POLYETHYLENE GLYCOL 3350 17 GM POWD.PACK GT SCH (21:16)
[2018-06-26] MEDS: BACI/NEOM/POLY B OINT PKT 1 UDPKT PACKET TP SCH (21:16)
[2018-06-26] MEDS: ACETAMINOPHEN 650 MG/20 ML UDC- SA PATIENTS-PAIN ONLY GT PRN (21:35)
[2018-06-27] MEDS: ERYTHROMYCIN STEARATE 250 MG TABLET GT SCH ×5 (00:17→23:22)
[2018-06-27] MEDS: ALBUTEROL FS 2.5 MG/3 ML VIAL.NEB NEB SCH ×4 (01:49→19:35)
[2018-06-27] MEDS: ACETAMINOPHEN 650 MG/20 ML UDC- SA PATIENTS-FEVER ONLY GT PRN (06:10)
--- NOTE | 2018-06-27 06:44 | NUR ---
PATIENT NOTED WITH FEVER WITH TEMP OF 102.9F, NO SOB, NO ACUTE DISTRESS, BREATHING EVEN AND UNLABORED, C/O TOOTHACHE POINTING ON HIS LOWER RIGHT SIDE OF THE TEETH. COOLING MEASURES STARTED AND TYLENOL GIVEN ORDERED. LEFT MESSAGE TO DR. CLIFFORD. NOTIFIED RESPONSIBLE CONSTITUTION PARTY. WILL CONTINUE TO MONITOR AND WILL CONTINUE TO FOLLOW UP.
[2018-06-27 07:51] VITALS: BP 84/46
--- NOTE | 2018-06-27 08:05 | NUR ---
Received an order from Dr. Cleveland to do the following due to elevated temp: Chest Xray, CBC, Blood culture, UA and C&S, and to start with Merrem IV per pharmacy to dose. Orders carried out. Dental consult ordered due to complain of tooth pain, SSD notified.
[2018-06-27 08:12] VITALS: BP 90/59
[2018-06-27 08:32] LABS: BASOPHILS # (AUTO) 0.1 /CMM (0.0-0.2); BASOPHILS % (AUTO) 0.5 % (0.0-2.0); EOSINOPHILS % (AUTO) 0.1 % (0.0-6.0); HEMATOCRIT 39 % (39-51); HEMOGLOBIN 12.7 g/dL (13.5-17.5); LYMPHOCYTES # (AUTO) 1.8 /CMM (0.8-4.8); LYMPHOCYTES % (AUTO) 12.4 % (20.0-44.0); MEAN CORPUSCULAR HGB CONC 33 g/dl (31.0-36.0); MEAN CORPUSCULAR VOLUME 87 fL (80-96); MONOCYTES # (AUTO) 0.7 /CMM (0.1-1.30); MONOCYTES % (AUTO) 5.2 % (2.0-12.0); NEUTROPHILS # (AUTO) 11.9 /CMM (1.8-8.9); NEUTROPHILS % (AUTO) 81.8 % (43.0-81.0); PLATELET COUNT (AUTO) 224 /CMM (150-450); RED BLOOD CELL COUNT(AUTO) 4.47 MIL/uL (4.5-6.0); WHITE BLOOD COUNT (AUTO) 14.5 K/uL (4.3-11.0)
[2018-06-27] MEDS: PROSOURCE / PROSTAT (PYXIS) 30 ML UDC JT SCH ×2 (09:00→17:26)
[2018-06-27] MEDS: RANITIDINE GT SCH ×2 (09:00→21:36)
[2018-06-27] MEDS: LEVETIRACETAM SOL (5 ML) 100 MG/ML UDC GT SCH ×2 (09:00→21:36)
[2018-06-27] MEDS: BACI/NEOM/POLY B OINT PKT 1 UDPKT PACKET TP SCH ×2 (09:00→21:36)
[2018-06-27] MEDS: POLYVINYL ALCOHOL 15 ML BOTTLE EACHEYE SCH ×4 (09:00→21:36)
[2018-06-27] MEDS: HYDROGEN PEROXIDE 480 ML BOTTLE TP SCH ×2 (09:00→21:36)
[2018-06-27] MEDS: Z GUARD REMEDY 4 OZ OINT TP SCH ×2 (09:00→21:36)
[2018-06-27] MEDS: VITS A AND D/WHITE PET/LANOLIN 5 GM PACKET TP SCH ×2 (09:00→21:37)
[2018-06-27] MEDS: COD LIVER OIL/ZINC OXIDE 120 GM TUBE TP SCH ×2 (09:00→17:27)
--- NOTE | 2018-06-27 09:35 | NUR ---
Notified Dr. Cleveland, resident's BP 84/46, T99.5, R13, P 67, 02 sat 96%, new order given to start patient on IVF bolus 500 cc NS then at 125 cc/hr x 2 L. Order carried out.
[2018-06-27] MEDS ORDERED: IV NS 0.9% 500 ML IV ONE (10:00)
[2018-06-27 10:51] LABS: APPEARANCE,URINE SL CLOUDY (CLEAR); BILIRUBIN,URINE NEGATIVE (NEGATIVE); BLOOD, URINE NEGATIVE Ery/uL (NEGATIVE); COLOR,URINE YELLOW (YELLOW); KETONES,URINE NEGATIVE (NEGATIVE); LEUKOCYTE ESTERASE ,URINE NEGATIVE (NEGATIVE); NITRITE, URINE NEGATIVE (NEGATIVE); PROTEIN,URINE NEGATIVE (NEGATIVE); UGLUCOSE NEGATIVE (NEGATIVE); UROBILINOGEN,URINE 0.2 EU/dL (0.2)
--- NOTE | 2018-06-27 10:55 | NUR ---
Dr. Cleveland notified by [facility] pharmacist that patient has allergy to Cefepime and Piperacillin and may therefore have a potential for cross allergic reaction. Dr. Cleveland ordered to change Merrem to Vancomycin and Clindamycin IV. However, according to Keo from [facility] pharmacy, these antibiotics are not covered by patient's insurance. [facility] pharmacist c/o Gabriel informed.
[2018-06-27] MEDS: VANCOMYCIN 0.75 GM in IV D5W 250 ML IV SCH (12:00)
[2018-06-27 12:34] VITALS: BP 97/57
--- NOTE | 2018-06-27 12:49 | NUR ---
Reported CBC, BMP, UA and chest Xray result to Dr. Cleveland. Patient's current V/S 97/57, HR 67, T 98, on IVF NS at 125 cc/hr. NNO given. Resident's responsible constitution party, Sugey notified of change in condition and new order. Resident's father did not visit today. IV ATB Vancomycin started, no adverse reaction noted.
--- NOTE | 2018-06-27 12:52 | NUR ---
SW left a VM to Dr. Corrales ( dentist) to see pt VELASQUEZ. Pt ( according to Jared) is complaining of tooth pain.
[2018-06-27] MEDS ORDERED: MEROPENEM 1 G in IV NS 0.9% 100 ML IV SCH (13:00)
[2018-06-27] MEDS: CLINDAMYCIN 600 MG in IV D5W 50 ML IV SCH ×2 (13:00→21:11)
--- NOTE | 2018-06-27 14:59 | NUR ---
TSERING made an appointement with Dr. Corrales for pt on Sunday July 01, 2018 at 2 PM.
[2018-06-27] MEDS: IV NS 0.9% 1,000 ML IV PRN ×2 (17:24→21:12)
[2018-06-27] MEDS: JEVITY 1.2 CAL 1,000 ML BOTTLE JT PRN (17:26)
[2018-06-27 17:27] VITALS: BP 97/60
--- NOTE | 2018-06-27 18:00 | NUR ---
Resident received both IV ATB Clindamycin and Vancomycin, no adverse reaction. Patient more interactive towards the end of the shift, watches video from his tablet. Afebrile at 98.9
[2018-06-27 19:58] VITALS: BP 94/62
[2018-06-27] MEDS: POLYETHYLENE GLYCOL 3350 17 GM POWD.PACK GT SCH (21:37)
[2018-06-28] MEDS: ALBUTEROL FS 2.5 MG/3 ML VIAL.NEB NEB SCH ×4 (01:23→20:18)
[2018-06-28] MEDS: CLINDAMYCIN 600 MG in IV D5W 50 ML IV SCH ×3 (05:00→21:06)
[2018-06-28] MEDS: ERYTHROMYCIN STEARATE 250 MG TABLET GT SCH ×3 (06:09→17:54)
--- NOTE | 2018-06-28 06:13 | NUR ---
Patient completed IV hydration of NS 2 liters.Afebrile 98.4.Will continue to monitor.
[2018-06-28 07:25] LABS: CALCIUM, SERUM 8.8 mg/dL (8.5-10.1); CREATININE 0.3 mg/dL (0.6-1.3)
[2018-06-28 07:27] VITALS: BP 80/44
--- NOTE | 2018-06-28 07:35 | NUR ---
Received male wade pt on a mechanical vent. Pt wade is secured. Vent is plugged into a red outlet, alarms are set and audible, and BMV is at bedside. Addendum: 06/28/18 at 0736 by ANGELO RIZVI RT Amended: Links added.
[2018-06-28 08:19] VITALS: BP 96/53
[2018-06-28] MEDS: HYDROGEN PEROXIDE 480 ML BOTTLE TP SCH ×2 (09:32→20:58)
[2018-06-28] MEDS: LEVETIRACETAM SOL (5 ML) 100 MG/ML UDC GT SCH ×2 (09:32→20:58)
[2018-06-28] MEDS: Z GUARD REMEDY 4 OZ OINT TP SCH ×2 (09:32→20:58)
[2018-06-28] MEDS: COD LIVER OIL/ZINC OXIDE 120 GM TUBE TP SCH ×2 (09:32→17:54)
[2018-06-28] MEDS: BACI/NEOM/POLY B OINT PKT 1 UDPKT PACKET TP SCH ×2 (09:32→20:58)
[2018-06-28] MEDS: POLYVINYL ALCOHOL 15 ML BOTTLE EACHEYE SCH ×4 (09:32→20:58)
[2018-06-28] MEDS: PROSOURCE / PROSTAT (PYXIS) 30 ML UDC JT SCH ×2 (09:32→17:54)
[2018-06-28] MEDS: RANITIDINE GT SCH ×2 (09:32→20:58)
[2018-06-28] MEDS: VITS A AND D/WHITE PET/LANOLIN 5 GM PACKET TP SCH ×2 (09:33→20:58)
[2018-06-28] MEDS: VANCOMYCIN 0.75 GM in IV D5W 250 ML IV SCH (11:12)
--- NOTE | 2018-06-28 11:45 | NUR ---
Resident's father visited and made him aware of patient's condition, current order including result of chest x-ray result showing pneumonia from which he is being treated with ATB. Dr. Cleveland also made aware that IVF is completed but BP remain in the low side. VS this morning 80/44, T 98, P 56, R 14, 99%. New order given to give 2 more liter of hydration NS at 100 cc/hr.
--- NOTE | 2018-06-28 16:00 | NUR ---
IV HL in the L hand infiltrated, removed and applied warm compress to the site. New HL inserted in the R wrist. Administration of IV ATB delayed due to no IV access. VS 106/61, T99, 73, 14, 99%.
[2018-06-28] MEDS: IV NS 0.9% 1,000 ML IV PRN (17:42)
[2018-06-28] MEDS: JEVITY 1.2 CAL 1,000 ML BOTTLE JT PRN (18:03)
[2018-06-28] MEDS: POLYETHYLENE GLYCOL 3350 17 GM POWD.PACK GT SCH (22:15)
[2018-06-29] MEDS: ERYTHROMYCIN STEARATE 250 MG TABLET GT SCH ×4 (00:21→17:46)
[2018-06-29] MEDS: ALBUTEROL FS 2.5 MG/3 ML VIAL.NEB NEB SCH ×4 (02:09→20:01)
[2018-06-29] MEDS: IV NS 0.9% 1,000 ML IV PRN (03:08)
[2018-06-29] MEDS: CLINDAMYCIN 600 MG in IV D5W 50 ML IV SCH ×3 (05:17→21:00)
[2018-06-29 07:50] VITALS: BP 96/57
[2018-06-29 07:58] LABS: CALCIUM, SERUM 8.9 mg/dL (8.5-10.1); CREATININE 0.2 mg/dL (0.6-1.3); POTASSIUM 4.1 mmol/L (3.5-5.1)
[2018-06-29] MEDS: HYDROGEN PEROXIDE 480 ML BOTTLE TP SCH ×2 (09:49→21:38)
[2018-06-29] MEDS: BACI/NEOM/POLY B OINT PKT 1 UDPKT PACKET TP SCH ×2 (09:49→21:38)
[2018-06-29] MEDS: LEVETIRACETAM SOL (5 ML) 100 MG/ML UDC GT SCH ×2 (09:49→21:38)
[2018-06-29] MEDS: COD LIVER OIL/ZINC OXIDE 120 GM TUBE TP SCH ×2 (09:49→17:46)
[2018-06-29] MEDS: PROSOURCE / PROSTAT (PYXIS) 30 ML UDC JT SCH ×2 (09:49→17:46)
[2018-06-29] MEDS: VITS A AND D/WHITE PET/LANOLIN 5 GM PACKET TP SCH ×2 (09:49→21:38)
[2018-06-29] MEDS: POLYVINYL ALCOHOL 15 ML BOTTLE EACHEYE SCH ×4 (09:49→21:38)
[2018-06-29] MEDS: Z GUARD REMEDY 4 OZ OINT TP SCH ×2 (09:49→21:38)
[2018-06-29] MEDS: RANITIDINE GT SCH ×2 (09:49→21:38)
--- NOTE | 2018-06-29 11:15 | NUR ---
Relayed BMP result to Dr Cleveland. No new order.
[2018-06-29] MEDS: VANCOMYCIN 1 GM in IV D5W 250 ML IV SCH (12:00)
--- NOTE | 2018-06-29 12:00 | NUR ---
Vancomycin trough 6. Received order to give increase Vancomycin to 1 gm IV q 12 hours.
[2018-06-29] MEDS: JEVITY 1.2 CAL 1,000 ML BOTTLE JT PRN (18:53)
[2018-06-29 19:59] VITALS: BP 96/57
[2018-06-29] MEDS: POLYETHYLENE GLYCOL 3350 17 GM POWD.PACK GT SCH (21:38)
[2018-06-30] MEDS: ALBUTEROL FS 2.5 MG/3 ML VIAL.NEB NEB SCH ×4 (01:38→19:52)
[2018-06-30] MEDS: CLINDAMYCIN 600 MG in IV D5W 50 ML IV SCH (05:00)
[2018-06-30] MEDS: ERYTHROMYCIN STEARATE 250 MG TABLET GT SCH ×5 (05:50→23:45)
[2018-06-30 07:36] LABS: CALCIUM, SERUM 9.3 mg/dL (8.5-10.1); CREATININE 0.2 mg/dL (0.6-1.3); POTASSIUM 4.7 mmol/L (3.5-5.1)
[2018-06-30 07:41] VITALS: BP 88/46
[2018-06-30 07:44] VITALS: BP 88/46
--- NOTE | 2018-06-30 09:00 | NUR ---
Seen and examined by Dr. Monroe, no new order given.
[2018-06-30] MEDS: POLYVINYL ALCOHOL 15 ML BOTTLE EACHEYE SCH ×4 (09:49→21:22)
[2018-06-30] MEDS: RANITIDINE GT SCH ×2 (09:49→21:22)
[2018-06-30] MEDS: PROSOURCE / PROSTAT (PYXIS) 30 ML UDC JT SCH ×2 (09:49→16:54)
[2018-06-30] MEDS: LEVETIRACETAM SOL (5 ML) 100 MG/ML UDC GT SCH ×2 (09:49→21:22)
[2018-06-30] MEDS: VITS A AND D/WHITE PET/LANOLIN 5 GM PACKET TP SCH ×2 (09:50→21:22)
[2018-06-30] MEDS: COD LIVER OIL/ZINC OXIDE 120 GM TUBE TP SCH ×2 (09:50→16:54)
[2018-06-30] MEDS: HYDROGEN PEROXIDE 480 ML BOTTLE TP SCH ×2 (09:50→21:22)
[2018-06-30] MEDS: BACI/NEOM/POLY B OINT PKT 1 UDPKT PACKET TP SCH ×2 (09:50→21:22)
[2018-06-30] MEDS: Z GUARD REMEDY 4 OZ OINT TP SCH ×2 (09:50→21:22)
--- NOTE | 2018-06-30 10:40 | NUR ---
Clindamycin IV changed to Clindamycin 300 mg per GT TID per [facility] pharmacist. Dr. Cleveland informed. CBC, BMP in AM.
[2018-06-30] MEDS: VANCOMYCIN 1 GM in IV D5W 250 ML IV SCH ×3 (12:24)
[2018-06-30] MEDS: CLINDAMYCIN HCL 150 MG CAPSULE PO SCH ×2 (13:11→21:22)
[2018-06-30] MEDS: JEVITY 1.2 CAL 1,000 ML BOTTLE JT PRN (18:49)
[2018-06-30 19:49] VITALS: BP 121/80
[2018-06-30] MEDS: POLYETHYLENE GLYCOL 3350 17 GM POWD.PACK GT SCH (21:22)
[2018-07-01] MEDS: ALBUTEROL FS 2.5 MG/3 ML VIAL.NEB NEB SCH ×4 (01:35→20:08)
[2018-07-01] MEDS: CLINDAMYCIN HCL 150 MG CAPSULE PO SCH ×3 (05:50→21:12)
[2018-07-01] MEDS: ERYTHROMYCIN STEARATE 250 MG TABLET GT SCH ×3 (05:50→17:33)
--- NOTE | 2018-07-01 05:51 | NUR ---
RT NOTED PT REC'D TRACHED ON [facility] VENT ON AC MODE. NO RESP DISTRESS OR SOB NOTED. SX'D FOR MOD AMT OF PALE YELLOW SECRETIONS. ALARMS ARE SET AND AUDIBLE. VENT PLUGGED INTO RED OUTLET. AMBU BAG BEDSIDE. WILL CONTINUE TO MONITOR. Addendum: 07/01/18 at 0552 by STELLA DALAL RT Amended: Links added.
[2018-07-01 07:25] LABS: BASOPHILS % (AUTO) 0.3 % (0.0-2.0); EOSINOPHILS % (AUTO) 2.1 % (0.0-6.0); HEMATOCRIT 33 % (39-51); HEMOGLOBIN 10.8 g/dL (13.5-17.5); LYMPHOCYTES # (AUTO) 2.5 /CMM (0.8-4.8); LYMPHOCYTES % (AUTO) 28.8 % (20.0-44.0); MEAN CORPUSCULAR HGB CONC 33 g/dl (31.0-36.0); MEAN CORPUSCULAR VOLUME 88 fL (80-96); MONOCYTES # (AUTO) 0.8 /CMM (0.1-1.30); MONOCYTES % (AUTO) 9.1 % (2.0-12.0); NEUTROPHILS # (AUTO) 5.3 /CMM (1.8-8.9); NEUTROPHILS % (AUTO) 59.7 % (43.0-81.0); PLATELET COUNT (AUTO) 235 /CMM (150-450); WHITE BLOOD COUNT (AUTO) 8.8 K/uL (4.3-11.0)
[2018-07-01 07:26] LABS: CALCIUM, SERUM 9.6 mg/dL (8.5-10.1); CREATININE 0.2 mg/dL (0.6-1.3); POTASSIUM 4.4 mmol/L (3.5-5.1)
[2018-07-01 07:50] VITALS: BP 87/56
[2018-07-01] MEDS: RANITIDINE GT SCH ×2 (09:43→21:12)
[2018-07-01] MEDS: COD LIVER OIL/ZINC OXIDE 120 GM TUBE TP SCH ×2 (09:43→17:32)
[2018-07-01] MEDS: LEVETIRACETAM SOL (5 ML) 100 MG/ML UDC GT SCH ×2 (09:43→21:12)
[2018-07-01] MEDS: PROSOURCE / PROSTAT (PYXIS) 30 ML UDC JT SCH ×2 (09:43→17:32)
[2018-07-01] MEDS: HYDROGEN PEROXIDE 480 ML BOTTLE TP SCH ×2 (09:43→21:12)
[2018-07-01] MEDS: POLYVINYL ALCOHOL 15 ML BOTTLE EACHEYE SCH ×4 (09:43→21:12)
[2018-07-01] MEDS: VITS A AND D/WHITE PET/LANOLIN 5 GM PACKET TP SCH ×2 (09:44→21:13)
[2018-07-01] MEDS: Z GUARD REMEDY 4 OZ OINT TP SCH ×2 (09:44→21:13)
[2018-07-01] MEDS: BACI/NEOM/POLY B OINT PKT 1 UDPKT PACKET TP SCH ×2 (09:44→21:12)
[2018-07-01] MEDS: VANCOMYCIN 1 GM in IV D5W 250 ML IV SCH ×3 (12:00)
--- NOTE | 2018-07-01 16:10 | NUR ---
Seen by Dr Augustine. Pt has been complaining of toothache on the right lower tooth (#30). Dr Augustine said pt has a large cavity on the tooth and he cleaned it well. He said pt might have to go to his dental office for an x-ray if he continues to complain of toothache.
--- NOTE | 2018-07-01 18:00 | NUR ---
RT END OF THE SHIFT REPORT, PT. 42 Y OLD MALE REC. 0700 AM AWAKE, AND RESPONSIVE. PT. IS TRACH'D PORTEX # 7 ON MECHANICAL VENT. WITH NOTED AC MODE. NO RESP DISTRESS NOR SOB NOTED. EQUAL CHEST RISE NOTED, B/S RHONCHI BILATERALLY SX'D FOR MOD. YELLOW SECRETIONS. TX'S GIVEN INLINE AND NO ADVERSE REACTION NOTED. ALARMS ARE SET AND FUNCTIONAL. VENT PLUGGED INTO RED OUTLET. HME CHANGED MANAGER BILINGUAL DONE. AMBU BAG REMAIN AT THE BEDSIDE. WILL CONTINUE TO MONITOR CLOSELY, AND REPORT WILL PASS TO PM SHIFT. Addendum: 07/01/18 at 1801 by ZANE KENNY RT Amended: Links added.
[2018-07-01 19:51] VITALS: BP 106/71
[2018-07-01] MEDS: POLYETHYLENE GLYCOL 3350 17 GM POWD.PACK GT SCH (21:13)
[2018-07-02] MEDS: ERYTHROMYCIN STEARATE 250 MG TABLET GT SCH ×4 (00:36→18:21)
[2018-07-02] MEDS: ALBUTEROL FS 2.5 MG/3 ML VIAL.NEB NEB SCH ×4 (01:12→19:49)
[2018-07-02] MEDS: CLINDAMYCIN HCL 150 MG CAPSULE PO SCH ×3 (05:47→21:07)
[2018-07-02 07:42] LABS: CALCIUM, SERUM 9.7 mg/dL (8.5-10.1); CREATININE 0.2 mg/dL (0.6-1.3); POTASSIUM 4.8 mmol/L (3.5-5.1)
[2018-07-02 08:14] VITALS: BP 99/52
[2018-07-02] MEDS: RANITIDINE GT SCH ×2 (09:00→21:07)
[2018-07-02] MEDS: COD LIVER OIL/ZINC OXIDE 120 GM TUBE TP SCH ×2 (09:00→17:11)
[2018-07-02] MEDS: Z GUARD REMEDY 4 OZ OINT TP SCH ×2 (09:00→21:07)
[2018-07-02] MEDS: PROSOURCE / PROSTAT (PYXIS) 30 ML UDC JT SCH ×2 (09:00→17:11)
[2018-07-02] MEDS: POLYVINYL ALCOHOL 15 ML BOTTLE EACHEYE SCH ×4 (09:00→21:07)
[2018-07-02] MEDS: HYDROGEN PEROXIDE 480 ML BOTTLE TP SCH ×2 (09:00→21:07)
[2018-07-02] MEDS: VITS A AND D/WHITE PET/LANOLIN 5 GM PACKET TP SCH ×2 (09:00→21:07)
[2018-07-02] MEDS: LEVETIRACETAM SOL (5 ML) 100 MG/ML UDC GT SCH ×2 (09:00→21:07)
[2018-07-02] MEDS: BACI/NEOM/POLY B OINT PKT 1 UDPKT PACKET TP SCH ×2 (09:00→21:07)
--- NOTE | 2018-07-02 10:30 | NUR ---
Seen and examined by Dr. Cleveland, NNO given, Vancomycin trough level to be drawn today. No adverse reaction from ATB.
[2018-07-02] MEDS ORDERED: VANCOMYCIN 1 GM in IV D5W 250 ML IV SCH (12:00)
[2018-07-02 20:35] VITALS: BP 106/64
[2018-07-02] MEDS: POLYETHYLENE GLYCOL 3350 17 GM POWD.PACK GT SCH (21:07)
[2018-07-03] MEDS: ERYTHROMYCIN STEARATE 250 MG TABLET GT SCH ×5 (00:17→23:27)
[2018-07-03] MEDS: ALBUTEROL FS 2.5 MG/3 ML VIAL.NEB NEB SCH ×4 (01:35→19:28)
[2018-07-03] MEDS: CLINDAMYCIN HCL 150 MG CAPSULE PO SCH ×3 (05:00→21:51)
--- NOTE | 2018-07-03 07:19 | NUR ---
T PATIENT REC'D TRACHED ON [facility] VENT WITH ORDERED SETTING BRAULIO WELL. VENT ALARMS CHECKED + AUDIBLE. TRACH SECURE AND IN PROPER POSITION. CUFF CHECKED AUTO FORMER MACHINE OPERATOR. PATIENT SUCTIONED WITH MOD ANGELA PALE SEMITHICK SECRETIONS. AMBU BAG AT HOB Addendum: 07/03/18 at 0912 by JOSE SALDAÑA RT Amended: Links added.
[2018-07-03 07:34] LABS: CALCIUM, SERUM 9.7 mg/dL (8.5-10.1); CREATININE 0.2 mg/dL (0.6-1.3); POTASSIUM 4.2 mmol/L (3.5-5.1)
[2018-07-03] MEDS: RANITIDINE GT SCH ×2 (08:53→21:51)
[2018-07-03] MEDS: POLYVINYL ALCOHOL 15 ML BOTTLE EACHEYE SCH ×4 (08:53→21:51)
[2018-07-03] MEDS: LEVETIRACETAM SOL (5 ML) 100 MG/ML UDC GT SCH ×2 (08:54→21:51)
[2018-07-03] MEDS: PROSOURCE / PROSTAT (PYXIS) 30 ML UDC JT SCH ×2 (08:54→17:50)
[2018-07-03] MEDS: HYDROGEN PEROXIDE 480 ML BOTTLE TP SCH ×2 (09:00→21:51)
[2018-07-03] MEDS: COD LIVER OIL/ZINC OXIDE 120 GM TUBE TP SCH ×2 (09:00→17:50)
[2018-07-03] MEDS: VITS A AND D/WHITE PET/LANOLIN 5 GM PACKET TP SCH ×2 (09:00→21:51)
[2018-07-03] MEDS: Z GUARD REMEDY 4 OZ OINT TP SCH ×2 (09:00→21:51)
[2018-07-03 20:27] VITALS: BP 107/73
[2018-07-03] MEDS: POLYETHYLENE GLYCOL 3350 17 GM POWD.PACK GT SCH (21:51)
[2018-07-04] MEDS: ALBUTEROL FS 2.5 MG/3 ML VIAL.NEB NEB SCH ×4 (01:29→20:13)
[2018-07-04] MEDS: JEVITY 1.2 CAL 1,000 ML BOTTLE JT PRN (02:03)
[2018-07-04] MEDS: CLINDAMYCIN HCL 150 MG CAPSULE PO SCH (05:02)
[2018-07-04] MEDS: ERYTHROMYCIN STEARATE 250 MG TABLET GT SCH ×3 (05:02→17:11)
[2018-07-04 07:12] LABS: CALCIUM, SERUM 9.7 mg/dL (8.5-10.1); CREATININE 0.2 mg/dL (0.6-1.3); POTASSIUM 4.3 mmol/L (3.5-5.1)
[2018-07-04 08:04] VITALS: BP 91/53
[2018-07-04] MEDS: VITS A AND D/WHITE PET/LANOLIN 5 GM PACKET TP SCH ×2 (09:00→21:13)
[2018-07-04] MEDS: Z GUARD REMEDY 4 OZ OINT TP SCH ×2 (09:00→21:12)
[2018-07-04] MEDS: RANITIDINE GT SCH ×2 (09:58→21:12)
[2018-07-04] MEDS: POLYVINYL ALCOHOL 15 ML BOTTLE EACHEYE SCH ×4 (09:58→21:12)
[2018-07-04] MEDS: LEVETIRACETAM SOL (5 ML) 100 MG/ML UDC GT SCH ×2 (09:58→21:12)
[2018-07-04] MEDS: PROSOURCE / PROSTAT (PYXIS) 30 ML UDC JT SCH ×2 (09:58→17:11)
[2018-07-04] MEDS: COD LIVER OIL/ZINC OXIDE 120 GM TUBE TP SCH ×2 (09:58→17:11)
[2018-07-04] MEDS: HYDROGEN PEROXIDE 480 ML BOTTLE TP SCH ×2 (09:59→21:12)
[2018-07-04] MEDS: NEOMY SULF/BACITRAC ZN/POLY 15 GM TUBE TP SCH ×2 (09:59→21:12)
[2018-07-04 20:04] VITALS: BP 106/62
--- NOTE | 2018-07-04 20:13 | NUR ---
RT NOTE PATIENT RECEIVED TRACH'D IN STABLE CONDITION ON MECHANICAL VENT. PATIENT IS TOLERATING CURRENT ORDERED VENT SETTINGS. PATIENT TRACH IS PATENT AND SECURE. ALARMS ARE SET AND AUDIBLE. MECHANICAL VENT IS PLUGGED INTO RED OUTLET. EMERGENCY EQUIPMENT IS PLACED AT BEDSIDE. Addendum: 07/04/18 at 2147 by CHONG JUSTIN RT Amended: Links added.
[2018-07-04] MEDS: POLYETHYLENE GLYCOL 3350 17 GM POWD.PACK GT SCH (21:13)
[2018-07-05] MEDS: ERYTHROMYCIN STEARATE 250 MG TABLET GT SCH ×4 (00:04→17:24)
[2018-07-05] MEDS: ALBUTEROL FS 2.5 MG/3 ML VIAL.NEB NEB SCH ×4 (01:55→19:42)
[2018-07-05] MEDS: JEVITY 1.2 CAL 1,000 ML BOTTLE JT PRN (05:47)
[2018-07-05 07:51] VITALS: BP 104/56
[2018-07-05] MEDS: POLYVINYL ALCOHOL 15 ML BOTTLE EACHEYE SCH ×4 (09:14→21:28)
[2018-07-05] MEDS: RANITIDINE GT SCH ×2 (09:14→21:28)
[2018-07-05] MEDS: LEVETIRACETAM SOL (5 ML) 100 MG/ML UDC GT SCH ×2 (09:14→21:28)
[2018-07-05] MEDS: Z GUARD REMEDY 4 OZ OINT TP SCH ×2 (09:14→21:28)
[2018-07-05] MEDS: PROSOURCE / PROSTAT (PYXIS) 30 ML UDC JT SCH ×2 (09:14→17:24)
[2018-07-05] MEDS: HYDROGEN PEROXIDE 480 ML BOTTLE TP SCH ×2 (09:14→21:28)
[2018-07-05] MEDS: COD LIVER OIL/ZINC OXIDE 120 GM TUBE TP SCH ×2 (09:14→17:24)
[2018-07-05] MEDS: NEOMY SULF/BACITRAC ZN/POLY 15 GM TUBE TP SCH ×2 (09:14→21:28)
[2018-07-05] MEDS: VITS A AND D/WHITE PET/LANOLIN 5 GM PACKET TP SCH ×2 (09:15→21:28)
[2018-07-05] MEDS: ACETYLCYSTEINE 20% SOLN 800 MG/4 ML VIAL NEB SCH ×2 (10:20→17:10)
--- NOTE | 2018-07-05 17:04 | NUR ---
RT NOTES TRACH TUBE IN PLACE, PATENT AND SECURED WITH TRACH TIE. VENT PLUGGED ON RED OUTLET. ALARMS SET AND AUDIBLE. BACK UP TRACH AND AMBU BAG BY THE BED SIDE. PATIENT TOLERATE CURRENT SETTINGS WITH NO SIGNS OF ANY DISTRESS Addendum: 07/05/18 at 1704 by EDNA CORTEZ RT Amended: Links added.
[2018-07-05 20:02] VITALS: BP 100/62
[2018-07-05] MEDS: POLYETHYLENE GLYCOL 3350 17 GM POWD.PACK GT SCH (21:28)
[2018-07-06] MEDS: ERYTHROMYCIN STEARATE 250 MG TABLET GT SCH ×4 (00:29→18:13)
[2018-07-06] MEDS: ALBUTEROL FS 2.5 MG/3 ML VIAL.NEB NEB SCH ×4 (02:15→19:27)
[2018-07-06] MEDS: JEVITY 1.2 CAL 1,000 ML BOTTLE JT PRN (05:43)
[2018-07-06 07:46] VITALS: BP 92/52
[2018-07-06] MEDS: ACETYLCYSTEINE 20% SOLN 800 MG/4 ML VIAL NEB SCH ×2 (09:00→13:22)
[2018-07-06] MEDS: VITS A AND D/WHITE PET/LANOLIN 5 GM PACKET TP SCH ×2 (09:00→21:19)
[2018-07-06] MEDS: POLYVINYL ALCOHOL 15 ML BOTTLE EACHEYE SCH ×4 (09:57→21:17)
[2018-07-06] MEDS: RANITIDINE GT SCH ×2 (09:59→21:17)
[2018-07-06] MEDS: LEVETIRACETAM SOL (5 ML) 100 MG/ML UDC GT SCH ×2 (09:59→21:18)
[2018-07-06] MEDS: HYDROGEN PEROXIDE 480 ML BOTTLE TP SCH ×2 (09:59→21:18)
[2018-07-06] MEDS: PROSOURCE / PROSTAT (PYXIS) 30 ML UDC JT SCH ×2 (09:59→17:00)
[2018-07-06] MEDS: NEOMY SULF/BACITRAC ZN/POLY 15 GM TUBE TP SCH ×2 (09:59→21:18)
[2018-07-06] MEDS: COD LIVER OIL/ZINC OXIDE 120 GM TUBE TP SCH ×2 (09:59→17:00)
[2018-07-06] MEDS: Z GUARD REMEDY 4 OZ OINT TP SCH ×2 (10:00→21:19)
--- NOTE | 2018-07-06 16:58 | NUR ---
Pt had a lollipop stuck on the back of his throat. His nurse was able to remove all of it in one piece. Small amount of blood noted on the stick. Pt was crying but no respiratory distress was noted, O2 sat 98%. Notified Dr Cleveland. Also notified pt's aunt Sugey.
[2018-07-06 20:18] VITALS: BP 101/63
[2018-07-06] MEDS: POLYETHYLENE GLYCOL 3350 17 GM POWD.PACK GT SCH (21:19)
[2018-07-07] MEDS: ERYTHROMYCIN STEARATE 250 MG TABLET GT SCH ×4 (00:03→18:33)
[2018-07-07] MEDS: ALBUTEROL FS 2.5 MG/3 ML VIAL.NEB NEB SCH ×4 (01:23→20:20)
[2018-07-07] MEDS: JEVITY 1.2 CAL 1,000 ML BOTTLE JT PRN (05:35)
--- NOTE | 2018-07-07 07:36 | NUR ---
RT PATIENT REC'D TRACHED ON [facility] VENT WITH ORDERED SETTING RBAULIO WELL. VENT ALARMS CHECKED + AUDIBLE. TRACH SECURE AND IN PROPER POSITION. CUFF CHECKED CLOTH FINISHING RANGE OPERATOR. PATIENT SUCTIONED WITH MOD AMT PALE SEMITHICK SECRETIONS. AMBU BAG AT HOB Addendum: 07/07/18 at 1556 by JOSE SALDAÑA RT Amended: Links added.
[2018-07-07 07:59] VITALS: BP 97/51
[2018-07-07] MEDS: COD LIVER OIL/ZINC OXIDE 120 GM TUBE TP SCH ×2 (09:00→16:36)
[2018-07-07] MEDS: LEVETIRACETAM SOL (5 ML) 100 MG/ML UDC GT SCH ×2 (09:00→20:27)
[2018-07-07] MEDS: Z GUARD REMEDY 4 OZ OINT TP SCH ×2 (09:00→20:27)
[2018-07-07] MEDS: VITS A AND D/WHITE PET/LANOLIN 5 GM PACKET TP SCH ×2 (09:00→20:27)
[2018-07-07] MEDS: POLYVINYL ALCOHOL 15 ML BOTTLE EACHEYE SCH ×4 (09:00→20:27)
[2018-07-07] MEDS: NEOMY SULF/BACITRAC ZN/POLY 15 GM TUBE TP SCH ×2 (09:00→20:27)
[2018-07-07] MEDS: PROSOURCE / PROSTAT (PYXIS) 30 ML UDC JT SCH ×2 (09:00→16:36)
[2018-07-07] MEDS: HYDROGEN PEROXIDE 480 ML BOTTLE TP SCH ×2 (09:00→20:27)
[2018-07-07] MEDS: RANITIDINE GT SCH ×2 (09:00→20:27)
[2018-07-07] MEDS: ACETYLCYSTEINE 20% SOLN 800 MG/4 ML VIAL NEB SCH (09:48)
[2018-07-07 20:09] VITALS: BP 97/56
[2018-07-07] MEDS: POLYETHYLENE GLYCOL 3350 17 GM POWD.PACK GT SCH (22:08)
[2018-07-08] MEDS: ERYTHROMYCIN STEARATE 250 MG TABLET GT SCH ×5 (00:10→23:23)
[2018-07-08] MEDS: JEVITY 1.2 CAL 1,000 ML BOTTLE JT PRN (00:11)
[2018-07-08] MEDS: ALBUTEROL FS 2.5 MG/3 ML VIAL.NEB NEB SCH ×4 (01:47→19:27)
--- NOTE | 2018-07-08 05:41 | NUR ---
pt rec'd trached on [facility] vent on ac mode. no resp distress or sob noted. trach patent and secured. sx'd for mod amt of pale yellow secretions. alarms are set and audible. vent plugged into red outlet. ambu bag bedside. will cotinue to monitor Addendum: 07/08/18 at 0542 by STELLA DALAL RT Amended: Links added.
[2018-07-08 07:48] VITALS: BP 115/66
[2018-07-08] MEDS: ACETYLCYSTEINE 20% SOLN 800 MG/4 ML VIAL NEB SCH ×2 (08:08→16:14)
[2018-07-08] MEDS: NEOMY SULF/BACITRAC ZN/POLY 15 GM TUBE TP SCH ×2 (09:00→21:13)
[2018-07-08] MEDS: HYDROGEN PEROXIDE 480 ML BOTTLE TP SCH ×2 (09:00→21:13)
[2018-07-08] MEDS: VITS A AND D/WHITE PET/LANOLIN 5 GM PACKET TP SCH ×2 (09:00→21:14)
[2018-07-08] MEDS: Z GUARD REMEDY 4 OZ OINT TP SCH ×2 (09:00→21:13)
[2018-07-08] MEDS: COD LIVER OIL/ZINC OXIDE 120 GM TUBE TP SCH ×2 (09:00→17:53)
[2018-07-08] MEDS: RANITIDINE GT SCH ×2 (09:13→21:13)
[2018-07-08] MEDS: POLYVINYL ALCOHOL 15 ML BOTTLE EACHEYE SCH ×4 (09:13→21:13)
[2018-07-08] MEDS: LEVETIRACETAM SOL (5 ML) 100 MG/ML UDC GT SCH ×2 (09:14→21:13)
[2018-07-08] MEDS: PROSOURCE / PROSTAT (PYXIS) 30 ML UDC JT SCH ×2 (09:14→17:52)
[2018-07-08 20:06] VITALS: BP 110/60
[2018-07-08] MEDS: POLYETHYLENE GLYCOL 3350 17 GM POWD.PACK GT SCH (21:14)
[2018-07-09] MEDS: ALBUTEROL FS 2.5 MG/3 ML VIAL.NEB NEB SCH ×4 (02:06→21:03)
[2018-07-09] MEDS: ERYTHROMYCIN STEARATE 250 MG TABLET GT SCH ×3 (05:50→18:15)
[2018-07-09 07:34] VITALS: BP 110/70
[2018-07-09] MEDS: LEVETIRACETAM SOL (5 ML) 100 MG/ML UDC GT SCH ×2 (09:00→21:04)
[2018-07-09] MEDS: PROSOURCE / PROSTAT (PYXIS) 30 ML UDC JT SCH ×2 (09:00→17:55)
[2018-07-09] MEDS: NEOMY SULF/BACITRAC ZN/POLY 15 GM TUBE TP SCH ×2 (09:00→21:04)
[2018-07-09] MEDS: Z GUARD REMEDY 4 OZ OINT TP SCH ×3 (09:00→21:04)
[2018-07-09] MEDS: RANITIDINE GT SCH ×2 (09:00→21:04)
[2018-07-09] MEDS: VITS A AND D/WHITE PET/LANOLIN 5 GM PACKET TP SCH ×2 (09:00→21:04)
[2018-07-09] MEDS: COD LIVER OIL/ZINC OXIDE 120 GM TUBE TP SCH ×2 (09:00→17:55)
[2018-07-09] MEDS: ACETYLCYSTEINE 20% SOLN 800 MG/4 ML VIAL NEB SCH (09:00)
[2018-07-09] MEDS: POLYVINYL ALCOHOL 15 ML BOTTLE EACHEYE SCH ×4 (09:00→21:03)
[2018-07-09] MEDS: HYDROGEN PEROXIDE 480 ML BOTTLE TP SCH ×2 (09:00→21:04)
--- NOTE | 2018-07-09 10:00 | NUR ---
Resident has a shower in the shower room. AIRCRAFT PAINTER APPRENTICE reported patient with excoriation int he R buttock fold, Dr. Cleveland notified with new order given and wound consult. Dr. Cleveland also made rounds and ask if he would like to order ST eval since lollipop got stuck in the back of his throat. He said there is no need for ST eval.
--- NOTE | 2018-07-09 12:02 | NUR ---
WOUND CARE CONSULT: PT PRESENTS WITH RT POSTERIOR BUTTOCK FOLD INCONTINENCE ASSOCIATED SKIN DAMAGE. RECOMMENDATIONS MADE FOR SKIN PROTECTION AND DISCUSSED WITH NURSING STAFF. CONCUR WITH CURRENT ORDER FOR Z GUARD AND MEPILEX. SKIN TO BE KEPT CLEAN AND DRY. PT ON FIRST STEP [facility] LOW AIRLOSS MATTRESS. WILL SEE PRN. IN AGREEMENT WITH PLAN OF CARE.
[2018-07-09] MEDS: POLYETHYLENE GLYCOL 3350 17 GM POWD.PACK GT SCH (21:04)
[2018-07-09 23:17] VITALS: BP 106/66
--- NOTE | 2018-07-10 00:22 | NUR ---
PT REC'D TRACHED ON [facility] VENT ON AC MODE. NO RESP DISTRESS OR SOB NOTED. SX'D FOR MOD AMT OF PALE YELLOW SECRETIONS. TRACH PATENT AND SECURED. ALARMS ARE SET AND AUDIBLE. VENT PLUGGED INTO RED OUTLET. AMBU BAG BEDSIDE. WILL CONTINUE TO MONITOR. Addendum: 07/10/18 at 0022 by STELLA DALAL RT Amended: Links added.
[2018-07-10] MEDS: ERYTHROMYCIN STEARATE 250 MG TABLET GT SCH ×5 (00:35→23:27)
[2018-07-10] MEDS: ALBUTEROL FS 2.5 MG/3 ML VIAL.NEB NEB SCH ×4 (01:12→19:58)
[2018-07-10 08:00] VITALS: BP_SYST 104; BP_DIAS 64; BP_DIAS 66
--- NOTE | 2018-07-10 09:01 | NUR ---
RT NOTE PATIENT REC'D TRACHED ON [facility] VENT WITH ORDERED SETTING BRAULIO WELL. VENT ALARMS CHECKED + AUDIBLE. TRACH SECURE AND IN PROPER POSITION. CUFF CHECKED LIGHTING EQUIPMENT OPERATOR. PATIENT SUCTIONED WITH MOD AMT PALE SEMITHICK SECRETIONS. AMBU BAG AT [facility] WILL CONTINUE TO MONITOR. Addendum: 07/10/18 at 0902 by KYM DUEÑAS RT Amended: Links added.
[2018-07-10] MEDS: RANITIDINE GT SCH ×2 (09:07→20:56)
[2018-07-10] MEDS: VITS A AND D/WHITE PET/LANOLIN 5 GM PACKET TP SCH ×2 (09:07→20:56)
[2018-07-10] MEDS: HYDROGEN PEROXIDE 480 ML BOTTLE TP SCH ×2 (09:07→20:56)
[2018-07-10] MEDS: COD LIVER OIL/ZINC OXIDE 120 GM TUBE TP SCH ×2 (09:07→17:24)
[2018-07-10] MEDS: POLYVINYL ALCOHOL 15 ML BOTTLE EACHEYE SCH ×4 (09:07→20:56)
[2018-07-10] MEDS: LEVETIRACETAM SOL (5 ML) 100 MG/ML UDC GT SCH ×2 (09:07→20:56)
[2018-07-10] MEDS: Z GUARD REMEDY 4 OZ OINT TP SCH ×4 (09:07→20:56)
[2018-07-10] MEDS: PROSOURCE / PROSTAT (PYXIS) 30 ML UDC JT SCH ×2 (09:07→17:24)
[2018-07-10] MEDS: NEOMY SULF/BACITRAC ZN/POLY 15 GM TUBE TP SCH ×2 (09:07→20:56)
[2018-07-10] MEDS: ACETYLCYSTEINE 20% SOLN 800 MG/4 ML VIAL NEB SCH (09:42)
[2018-07-10] MEDS: JEVITY 1.2 CAL 1,000 ML BOTTLE JT PRN (17:28)
--- NOTE | 2018-07-10 19:58 | NUR ---
RT NOTE: RECEIVED TRACH PT ON [facility] VENT ON NOTED SETTINGS PER MD ORDERS. TRACH IS PATENT AND SECURED. STOCK PULLER DONE. Q6 BREATHING TX GIVEN WITH NO ADVERSE REACTION NOTED. SX DONE PRN. VENT PLUGGED INTO RED OUTLET. ALARMS ON AND AUDIBLE. RAGHU BAG @ BEDSIDE. NO RESP DISTRESS AT THIS TIME. WILL CONT TO MONITOR PT. Addendum: 07/11/18 at 0432 by CIRILO LOZOYA RT Amended: Links added.
[2018-07-10 20:06] VITALS: BP 112/68
[2018-07-10] MEDS: POLYETHYLENE GLYCOL 3350 17 GM POWD.PACK GT SCH (21:54)
[2018-07-11] MEDS: ALBUTEROL FS 2.5 MG/3 ML VIAL.NEB NEB SCH ×4 (01:37→19:57)
[2018-07-11] MEDS: ERYTHROMYCIN STEARATE 250 MG TABLET GT SCH ×4 (06:03→23:20)
[2018-07-11] MEDS: JEVITY 1.2 CAL 1,000 ML BOTTLE JT PRN (06:04)
[2018-07-11 07:54] VITALS: BP 99/59
[2018-07-11] MEDS: ACETYLCYSTEINE 20% SOLN 800 MG/4 ML VIAL NEB SCH ×2 (08:01→17:27)
--- NOTE | 2018-07-11 08:03 | NUR ---
Male trach pt received unlabored on a mechanical vent. Pt wade is secure. Vent is plugged into a red outlet, alarms are set and audible, and BMV is at bedside. Addendum: 07/11/18 at 0803 by ANGELO RIZVI RT Amended: Links added.
[2018-07-11] MEDS: POLYVINYL ALCOHOL 15 ML BOTTLE EACHEYE SCH ×4 (08:33→21:37)
[2018-07-11] MEDS: VITS A AND D/WHITE PET/LANOLIN 5 GM PACKET TP SCH ×2 (08:34→21:37)
[2018-07-11] MEDS: COD LIVER OIL/ZINC OXIDE 120 GM TUBE TP SCH ×2 (08:34→17:29)
[2018-07-11] MEDS: PROSOURCE / PROSTAT (PYXIS) 30 ML UDC JT SCH ×2 (08:34→17:29)
[2018-07-11] MEDS: LEVETIRACETAM SOL (5 ML) 100 MG/ML UDC GT SCH ×2 (08:34→21:37)
[2018-07-11] MEDS: HYDROGEN PEROXIDE 480 ML BOTTLE TP SCH ×2 (08:34→21:37)
[2018-07-11] MEDS: Z GUARD REMEDY 4 OZ OINT TP SCH ×4 (08:34→21:37)
[2018-07-11] MEDS: RANITIDINE GT SCH ×2 (08:34→21:37)
[2018-07-11 20:34] VITALS: BP 95/53
[2018-07-11] MEDS: POLYETHYLENE GLYCOL 3350 17 GM POWD.PACK GT SCH (21:37)
--- NOTE | 2018-07-11 22:25 | NUR ---
PT RCVD TRACH'D ON MECHANICAL VENT WITH CHARTED SETTINGS. TX BRAULIO WELL. SX DONE. PT TRACH IS PATENT AND SECURE. VENT IS PLUGGED INTO RED OUTLET. ALARMS ARE ON AND AUDIBLE. AMBU BAG AT BEDSIDE. WILL CONTINUE TO MONITOR. Addendum: 07/11/18 at 2226 by STANFORD PETERS RT Amended: Links added.
[2018-07-12] MEDS: ALBUTEROL FS 2.5 MG/3 ML VIAL.NEB NEB SCH ×4 (01:11→19:43)
[2018-07-12] MEDS: ERYTHROMYCIN STEARATE 250 MG TABLET GT SCH ×4 (05:34→23:59)
[2018-07-12] MEDS: JEVITY 1.2 CAL 1,000 ML BOTTLE JT PRN (05:35)
[2018-07-12] MEDS: BISACODYL SUPP (10 MG) 10 MG/SUPP.RECT SUPP.RECT RC PRN (05:35)
[2018-07-12 07:48] VITALS: BP 98/58
--- NOTE | 2018-07-12 08:07 | NUR ---
Saurav pt received unlabored on a mechanical vent. Pt saurav is secure. Vent is plugged into a red outlet, alarms are set and audible, and BMV is at bedside. Addendum: 07/12/18 at 0808 by ANGELO RIZVI RT Amended: Links added.
[2018-07-12] MEDS: POLYVINYL ALCOHOL 15 ML BOTTLE EACHEYE SCH ×4 (09:14→20:44)
[2018-07-12] MEDS: HYDROGEN PEROXIDE 480 ML BOTTLE TP SCH ×2 (09:14→20:44)
[2018-07-12] MEDS: PROSOURCE / PROSTAT (PYXIS) 30 ML UDC JT SCH ×2 (09:14→17:29)
[2018-07-12] MEDS: Z GUARD REMEDY 4 OZ OINT TP SCH ×4 (09:14→20:44)
[2018-07-12] MEDS: VITS A AND D/WHITE PET/LANOLIN 5 GM PACKET TP SCH ×2 (09:14→20:44)
[2018-07-12] MEDS: LEVETIRACETAM SOL (5 ML) 100 MG/ML UDC GT SCH ×2 (09:14→20:44)
[2018-07-12] MEDS: COD LIVER OIL/ZINC OXIDE 120 GM TUBE TP SCH ×2 (09:14→17:30)
[2018-07-12] MEDS: RANITIDINE GT SCH ×2 (09:14→20:44)
--- NOTE | 2018-07-12 20:02 | NUR ---
PT RCVD TRACH'D ON MECHANICAL VENT WITH CHARTED SETTINGS. TX BRAULIO WELL. SX DONE. PT TRACH IS PATENT AND SECURE. VENT IS PLUGGED INTO RED OUTLET. ALARMS ARE ON AND AUDIBLE. AMBU BAG AT BEDSIDE. WILL CONTINUE TO MONITOR. Addendum: 07/12/18 at 2001 by STANFORD PETERS RT Amended: Links added.
[2018-07-12] MEDS: POLYETHYLENE GLYCOL 3350 17 GM POWD.PACK GT SCH (21:33)
[2018-07-12] MEDS: POVIDONE-IODINE OINT 28.4 GM TUBE TP SCH (21:33)
[2018-07-12 23:03] VITALS: BP 104/54
[2018-07-13] MEDS: ALBUTEROL FS 2.5 MG/3 ML VIAL.NEB NEB SCH ×5 (00:53→19:48)
[2018-07-13] MEDS: ERYTHROMYCIN STEARATE 250 MG TABLET GT SCH ×4 (05:03→23:43)
[2018-07-13] MEDS: JEVITY 1.2 CAL 1,000 ML BOTTLE JT PRN (05:03)
[2018-07-13 08:00] VITALS: BP 92/51
[2018-07-13] MEDS: RANITIDINE GT SCH ×2 (08:08→21:00)
[2018-07-13] MEDS: POLYVINYL ALCOHOL 15 ML BOTTLE EACHEYE SCH ×4 (08:08→20:28)
[2018-07-13] MEDS: PROSOURCE / PROSTAT (PYXIS) 30 ML UDC JT SCH ×2 (08:09→17:59)
[2018-07-13] MEDS: LEVETIRACETAM SOL (5 ML) 100 MG/ML UDC GT SCH ×2 (08:09→20:28)
[2018-07-13] MEDS: VITS A AND D/WHITE PET/LANOLIN 5 GM PACKET TP SCH ×2 (09:00→20:29)
[2018-07-13] MEDS: COD LIVER OIL/ZINC OXIDE 120 GM TUBE TP SCH ×2 (09:00→17:59)
[2018-07-13] MEDS: POVIDONE-IODINE OINT 28.4 GM TUBE TP SCH ×2 (09:00→20:28)
[2018-07-13] MEDS: HYDROGEN PEROXIDE 480 ML BOTTLE TP SCH ×2 (09:00→20:28)
[2018-07-13] MEDS: Z GUARD REMEDY 4 OZ OINT TP SCH ×4 (09:00→20:29)
[2018-07-13 19:49] VITALS: BP 104/65
[2018-07-13] MEDS: NYSTATIN/TRIAMCIN CREAM 15 GM TUBE TP SCH ×2 (20:28)
[2018-07-13] MEDS: POLYETHYLENE GLYCOL 3350 17 GM POWD.PACK GT SCH (22:28)
[2018-07-14] MEDS: ALBUTEROL FS 2.5 MG/3 ML VIAL.NEB NEB SCH ×4 (01:30→19:55)
--- NOTE | 2018-07-14 02:43 | NUR ---
PATIENT RECEIVED ON TRACH TO VENT WITH SETTINGS OF AC 145, 450 VT, 40%, +0. SUCTIONED FOR MODERATE, THICK, YELLOW SECRETIONS. PATIENT REFUSED IN-LINE TREATMENTS. AMBU BAG AT BEDSIDE. VENT ALARM AUDIBLE AND VISIBLE. VENT PLUGGED INTO RED OUTLET. Addendum: 07/14/18 at 0244 by MALLY Villa SULIT RT Amended: Links added. Addendum: 07/14/18 at 0252 by MALLY Villa SULIT RT PATIENT RECEIVED ON TRACH TO VENT WITH SETTINGS OF AC 145, 450 VT, 40%, +0. SUCTIONED FOR MODERATE, THICK, YELLOW SECRETIONS. PATIENT REFUSED IN-LINE TREATMENTS. AMBU BAG AT BEDSIDE. VENT ALARM AUDIBLE AND VISIBLE. VENT PLUGGED INTO RED OUTLET.PULSE OXIMETER ALARM AUDIBLE AND VISIBLE.
[2018-07-14] MEDS: JEVITY 1.2 CAL 1,000 ML BOTTLE JT PRN ×2 (05:14→05:37)
[2018-07-14] MEDS: ERYTHROMYCIN STEARATE 250 MG TABLET GT SCH ×4 (05:14→23:42)
[2018-07-14 08:48] VITALS: BP 102/62
[2018-07-14] MEDS: HYDROGEN PEROXIDE 480 ML BOTTLE TP SCH ×2 (09:00→21:38)
[2018-07-14] MEDS: NYSTATIN/TRIAMCIN CREAM 15 GM TUBE TP SCH ×4 (09:00→21:38)
[2018-07-14] MEDS: LEVETIRACETAM SOL (5 ML) 100 MG/ML UDC GT SCH ×2 (09:00→21:38)
[2018-07-14] MEDS: COD LIVER OIL/ZINC OXIDE 120 GM TUBE TP SCH ×2 (09:00→17:00)
[2018-07-14] MEDS: Z GUARD REMEDY 4 OZ OINT TP SCH ×4 (09:00→21:38)
[2018-07-14] MEDS: PROSOURCE / PROSTAT (PYXIS) 30 ML UDC JT SCH ×2 (09:00→17:00)
[2018-07-14] MEDS: RANITIDINE GT SCH ×2 (09:00→21:38)
[2018-07-14] MEDS: POLYVINYL ALCOHOL 15 ML BOTTLE EACHEYE SCH ×4 (09:00→21:38)
[2018-07-14] MEDS: VITS A AND D/WHITE PET/LANOLIN 5 GM PACKET TP SCH ×2 (09:00→21:39)
[2018-07-14] MEDS: POVIDONE-IODINE OINT 28.4 GM TUBE TP SCH ×2 (09:00→21:38)
--- NOTE | 2018-07-14 09:00 | NUR ---
Seen and examined by Dr. Monroe, no new order given.
--- NOTE | 2018-07-14 20:20 | NUR ---
RT NOTE PATIENT RECEIVED TRACHED ON MECHANICAL VENTILATION. AMBU BAG/BACK UP TRACH @ BEDSIDE. VENT PLUGGED TO RED OUTLET. ALARMS ON AND AUDIBLE. TX GIVEN, NO ADVERSE REACTIONS NOTED. SX DONE, MODERATE THICK WHITE SECRETIONS NOTED. PATIENT STABLE AT THIS TIME. WILL MONITOR. Addendum: 07/14/18 at 2020 by MILAN CARRASCO RT Amended: Links added.
[2018-07-14 20:42] VITALS: BP 107/66
[2018-07-14] MEDS: POLYETHYLENE GLYCOL 3350 17 GM POWD.PACK GT SCH (21:39)
[2018-07-15] MEDS: ALBUTEROL FS 2.5 MG/3 ML VIAL.NEB NEB SCH ×4 (02:01→19:19)
[2018-07-15] MEDS: ERYTHROMYCIN STEARATE 250 MG TABLET GT SCH ×3 (06:13→18:39)
[2018-07-15] MEDS: JEVITY 1.2 CAL 1,000 ML BOTTLE JT PRN (06:29)
[2018-07-15 08:00] VITALS: BP 96/51
--- NOTE | 2018-07-15 08:34 | NUR ---
RT NOTE PATIENT RECEIVED TRACHED ON MECHANICAL VENTILATION. AMBU BAG/BACK UP TRACH @ BEDSIDE. VENT PLUGGED TO RED OUTLET. ALARMS ON AND AUDIBLE. TX GIVEN, NO ADVERSE REACTIONS NOTED. SX DONE, SMALL THICK PALE YELLOW SECRETIONS NOTED. PATIENT STABLE AT THIS TIME. WILL CONTINUE TO MONITOR. Addendum: 07/15/18 at 0835 by KYM DUEÑAS RT Amended: Links added.
[2018-07-15] MEDS: NYSTATIN/TRIAMCIN CREAM 15 GM TUBE TP SCH ×4 (09:00→21:19)
[2018-07-15] MEDS: POVIDONE-IODINE OINT 28.4 GM TUBE TP SCH ×2 (09:26→21:19)
[2018-07-15] MEDS: PROSOURCE / PROSTAT (PYXIS) 30 ML UDC JT SCH ×2 (09:26→17:00)
[2018-07-15] MEDS: COD LIVER OIL/ZINC OXIDE 120 GM TUBE TP SCH ×2 (09:26→17:00)
[2018-07-15] MEDS: RANITIDINE GT SCH ×2 (09:26→21:19)
[2018-07-15] MEDS: LEVETIRACETAM SOL (5 ML) 100 MG/ML UDC GT SCH ×2 (09:26→21:19)
[2018-07-15] MEDS: POLYVINYL ALCOHOL 15 ML BOTTLE EACHEYE SCH ×4 (09:26→21:18)
[2018-07-15] MEDS: VITS A AND D/WHITE PET/LANOLIN 5 GM PACKET TP SCH ×2 (09:27→21:20)
[2018-07-15] MEDS: HYDROGEN PEROXIDE 480 ML BOTTLE TP SCH ×2 (09:27→21:19)
[2018-07-15] MEDS: Z GUARD REMEDY 4 OZ OINT TP SCH ×4 (09:27→21:20)
--- NOTE | 2018-07-15 12:12 | NUR ---
Patient's dad asked SW about a wound on pt's left hand and what was being done to treat it. After checking with charge nurse Teresita, SW informed pt's dad that it was being treated with a new antibiotic cream ordered by Dr. Cleveland.
--- NOTE | 2018-07-15 15:47 | NUR ---
SW wrote a " TO WHOM IT MAY CONCERN" letter informing patient lives in this facility. Pt father told therapist that SS was terminated until proof of pat residence was provided.
[2018-07-15 20:01] VITALS: BP 104/63
[2018-07-15] MEDS: POLYETHYLENE GLYCOL 3350 17 GM POWD.PACK GT SCH (21:20)
[2018-07-16] MEDS: ERYTHROMYCIN STEARATE 250 MG TABLET GT SCH ×5 (00:13→23:33)
[2018-07-16] MEDS: ALBUTEROL FS 2.5 MG/3 ML VIAL.NEB NEB SCH ×4 (01:56→19:55)
--- NOTE | 2018-07-16 07:31 | NUR ---
Male trach pt received unlabored on a mechanical vent. Pt wade is secure. Vent is plugged into a red outlet, alarms are set and audible, and BMV is at bedside. Addendum: 07/16/18 at 0732 by ANGELO RIZVI RT Amended: Links added.
[2018-07-16 08:39] VITALS: BP 105/62
[2018-07-16] MEDS: RANITIDINE GT SCH ×2 (09:00→20:08)
[2018-07-16] MEDS: PROSOURCE / PROSTAT (PYXIS) 30 ML UDC JT SCH ×2 (09:00→17:40)
[2018-07-16] MEDS: LEVETIRACETAM SOL (5 ML) 100 MG/ML UDC GT SCH ×2 (09:00→20:09)
[2018-07-16] MEDS: VITS A AND D/WHITE PET/LANOLIN 5 GM PACKET TP SCH ×2 (09:00→20:09)
[2018-07-16] MEDS: NYSTATIN/TRIAMCIN CREAM 15 GM TUBE TP SCH ×4 (09:00→20:09)
[2018-07-16] MEDS: POVIDONE-IODINE OINT 28.4 GM TUBE TP SCH ×2 (09:00→20:20)
[2018-07-16] MEDS: Z GUARD REMEDY 4 OZ OINT TP SCH ×4 (09:00→20:09)
[2018-07-16] MEDS: POLYVINYL ALCOHOL 15 ML BOTTLE EACHEYE SCH ×4 (09:00→20:08)
[2018-07-16] MEDS: HYDROGEN PEROXIDE 480 ML BOTTLE TP SCH ×2 (09:00→20:09)
[2018-07-16] MEDS: COD LIVER OIL/ZINC OXIDE 120 GM TUBE TP SCH ×2 (09:00→17:41)
--- NOTE | 2018-07-16 09:00 | NUR ---
Seen and examined by Dr. Cleveland, no new order given.
[2018-07-16] MEDS: JEVITY 1.2 CAL 1,000 ML BOTTLE JT PRN (17:51)
[2018-07-16] MEDS: POLYVINYL ALCOHOL 15 ML BOTTLE EACHEYE PRN (20:06)
[2018-07-16] MEDS: POLYETHYLENE GLYCOL 3350 17 GM POWD.PACK GT SCH (22:38)
[2018-07-17] MEDS: ALBUTEROL FS 2.5 MG/3 ML VIAL.NEB NEB SCH ×4 (01:10→19:55)
[2018-07-17] MEDS: ERYTHROMYCIN STEARATE 250 MG TABLET GT SCH ×3 (05:48→17:06)
[2018-07-17 07:07] VITALS: BP 110/71
[2018-07-17] MEDS: NYSTATIN/TRIAMCIN CREAM 15 GM TUBE TP SCH ×4 (09:00→21:58)
[2018-07-17] MEDS: PROSOURCE / PROSTAT (PYXIS) 30 ML UDC JT SCH ×2 (09:00→16:20)
[2018-07-17] MEDS: POVIDONE-IODINE OINT 28.4 GM TUBE TP SCH ×2 (09:00→21:56)
[2018-07-17] MEDS: HYDROGEN PEROXIDE 480 ML BOTTLE TP SCH ×2 (09:00→21:56)
[2018-07-17] MEDS: POLYVINYL ALCOHOL 15 ML BOTTLE EACHEYE SCH ×4 (09:00→21:55)
[2018-07-17] MEDS: VITS A AND D/WHITE PET/LANOLIN 5 GM PACKET TP SCH ×2 (09:00→21:59)
[2018-07-17] MEDS: RANITIDINE GT SCH ×2 (09:00→21:56)
[2018-07-17] MEDS: LEVETIRACETAM SOL (5 ML) 100 MG/ML UDC GT SCH ×2 (09:00→21:56)
[2018-07-17] MEDS: COD LIVER OIL/ZINC OXIDE 120 GM TUBE TP SCH ×2 (09:00→17:06)
[2018-07-17] MEDS: Z GUARD REMEDY 4 OZ OINT TP SCH ×4 (09:00→21:59)
[2018-07-17] MEDS: ACETAMINOPHEN 650 MG/20 ML UDC- SA PATIENTS-PAIN ONLY GT PRN (11:14)
[2018-07-17] MEDS: JEVITY 1.2 CAL 1,000 ML BOTTLE JT PRN (16:16)
[2018-07-17 20:07] VITALS: BP 103/62
[2018-07-17] MEDS: POLYETHYLENE GLYCOL 3350 17 GM POWD.PACK GT SCH (21:59)
[2018-07-18] MEDS: ERYTHROMYCIN STEARATE 250 MG TABLET GT SCH ×5 (00:07→23:43)
[2018-07-18] MEDS: ALBUTEROL FS 2.5 MG/3 ML VIAL.NEB NEB SCH ×4 (02:06→20:23)
--- NOTE | 2018-07-18 07:27 | NUR ---
Received male wade pt on a mechanical vent. Pt wade is secure. Vent is plugged into a red outlet, alarms are set and audible, and BMV is at bedside. Addendum: 07/18/18 at 0728 by ANGELO RIZVI RT Amended: Links added.
[2018-07-18 08:00] VITALS: BP 128/58
[2018-07-18] MEDS: LEVETIRACETAM SOL (5 ML) 100 MG/ML UDC GT SCH ×2 (09:00→21:01)
[2018-07-18] MEDS: VITS A AND D/WHITE PET/LANOLIN 5 GM PACKET TP SCH ×2 (09:00→21:01)
[2018-07-18] MEDS: PROSOURCE / PROSTAT (PYXIS) 30 ML UDC JT SCH ×2 (09:00→17:03)
[2018-07-18] MEDS: POVIDONE-IODINE OINT 28.4 GM TUBE TP SCH ×2 (09:00→21:01)
[2018-07-18] MEDS: Z GUARD REMEDY 4 OZ OINT TP SCH ×4 (09:00→21:01)
[2018-07-18] MEDS: COD LIVER OIL/ZINC OXIDE 120 GM TUBE TP SCH ×2 (09:00→17:03)
[2018-07-18] MEDS: HYDROGEN PEROXIDE 480 ML BOTTLE TP SCH ×2 (09:00→21:01)
[2018-07-18] MEDS: NYSTATIN/TRIAMCIN CREAM 15 GM TUBE TP SCH ×4 (09:00→21:01)
[2018-07-18] MEDS: POLYVINYL ALCOHOL 15 ML BOTTLE EACHEYE SCH ×4 (09:00→21:00)
[2018-07-18] MEDS: RANITIDINE GT SCH ×2 (09:00→21:00)
[2018-07-18] MEDS: JEVITY 1.2 CAL 1,000 ML BOTTLE JT PRN (17:04)
[2018-07-18 20:35] VITALS: BP 102/55
--- NOTE | 2018-07-18 20:56 | NUR ---
RT NOTE PT REC'D TRACHED ON [facility] VENT ON AC MODE. NO RESP DISTRESS OR SOB NOTED. TRACH PATENT AND SECURED. SX'D FOR MOD AMT OF THICK PALE YELLOW SECRETIONS. ALARMS ARE SET AND AUDIBLE. VENT PLUGGED INTO RED OUTLET. AMBU BAG BEDSIDE. WILL CONTINUE TO MONITOR. Addendum: 07/18/18 at 2055 by STELLA DALAL RT Amended: Links added.
[2018-07-18] MEDS: POLYETHYLENE GLYCOL 3350 17 GM POWD.PACK GT SCH (21:01)
[2018-07-19] MEDS: ALBUTEROL FS 2.5 MG/3 ML VIAL.NEB NEB SCH ×4 (01:56→20:16)
[2018-07-19] MEDS: ERYTHROMYCIN STEARATE 250 MG TABLET GT SCH ×4 (05:27→23:40)
[2018-07-19 07:28] VITALS: BP 105/70
--- NOTE | 2018-07-19 08:25 | NUR ---
RT NOTE PATIENT RECEIVED TRACHED ON MECHANICAL VENTILATION. AMBU BAG/BACK UP TRACH @ BEDSIDE. VENT PLUGGED TO RED OUTLET. ALARMS ON AND AUDIBLE. TX GIVEN, NO ADVERSE REACTIONS NOTED. SX DONE, MODERATE THICK WHITE SECRETIONS NOTED. PATIENT STABLE AT THIS TIME. WILL CONTINUE TO MONITOR. Addendum: 07/19/18 at 0825 by KYM DUEÑAS RT Amended: Links added.
--- NOTE | 2018-07-19 09:30 | NUR ---
RT NOTE RT CALLED TO BEDSIDE. PT WAS SATURATING LOW AT 82%. PATIENT SUCTIONED WITH MODERATE AMOUNT OF THIN WHITE SECRETIONS. VENT SETTINGS WAS DOUBLE CHECKED AND FOUND FIO2 SETTING WAS SET AT 21%. ADJUSTED FIO2 BACK TO 40% . PATIENT SATS BACK UP TP 98%. NO SOB NOTED AT THIS TIME AFTER THE FIO2 ADJUSTMENT.
[2018-07-19] MEDS: HYDROGEN PEROXIDE 480 ML BOTTLE TP SCH ×2 (09:48→20:58)
[2018-07-19] MEDS: LEVETIRACETAM SOL (5 ML) 100 MG/ML UDC GT SCH ×2 (09:48→20:57)
[2018-07-19] MEDS: POVIDONE-IODINE OINT 28.4 GM TUBE TP SCH ×2 (09:48→20:58)
[2018-07-19] MEDS: COD LIVER OIL/ZINC OXIDE 120 GM TUBE TP SCH ×2 (09:48→17:00)
[2018-07-19] MEDS: POLYVINYL ALCOHOL 15 ML BOTTLE EACHEYE SCH ×4 (09:48→20:57)
[2018-07-19] MEDS: PROSOURCE / PROSTAT (PYXIS) 30 ML UDC JT SCH ×2 (09:48→17:00)
[2018-07-19] MEDS: RANITIDINE GT SCH ×2 (09:48→20:57)
[2018-07-19] MEDS: Z GUARD REMEDY 4 OZ OINT TP SCH ×4 (09:49→20:58)
[2018-07-19] MEDS: NYSTATIN/TRIAMCIN CREAM 15 GM TUBE TP SCH ×4 (09:49→20:58)
[2018-07-19] MEDS: VITS A AND D/WHITE PET/LANOLIN 5 GM PACKET TP SCH ×2 (09:49→20:58)
[2018-07-19] MEDS: ACETAMINOPHEN 650 MG/20 ML UDC- SA PATIENTS-PAIN ONLY GT PRN (14:19)
[2018-07-19] MEDS: POLYETHYLENE GLYCOL 3350 17 GM POWD.PACK GT SCH (20:58)
[2018-07-19] MEDS: JEVITY 1.2 CAL 1,000 ML BOTTLE JT PRN (20:59)
[2018-07-19 21:30] VITALS: BP 107/63
--- NOTE | 2018-07-20 00:50 | NUR ---
RT NOTE PT REC'D TRACHED ON [facility] VENT ON AC MODE. NO RESP DISTRESS OR SOB NOTED. TRACH PATENT AND SECURED. SX'D FOR MOD AMT OF PALE YELLOW SECRETIONS. ALARMS ARE SET AND AUDIBLE. VENT PLUGGED INTO RED OUTLET. AMBU BAG BEDSIDE. WILL CONTINUE TO MONITOR Addendum: 07/20/18 at 0050 by STELLA DALAL RT Amended: Links added.
[2018-07-20] MEDS: ALBUTEROL FS 2.5 MG/3 ML VIAL.NEB NEB SCH ×4 (01:59→19:25)
[2018-07-20] MEDS: ERYTHROMYCIN STEARATE 250 MG TABLET GT SCH ×3 (05:47→17:12)
[2018-07-20 07:32] VITALS: BP 93/60
[2018-07-20] MEDS: HYDROGEN PEROXIDE 480 ML BOTTLE TP SCH ×2 (09:00→21:05)
[2018-07-20] MEDS: VITS A AND D/WHITE PET/LANOLIN 5 GM PACKET TP SCH ×2 (09:00→21:05)
[2018-07-20] MEDS: POVIDONE-IODINE OINT 28.4 GM TUBE TP SCH ×2 (09:00→21:05)
[2018-07-20] MEDS: NYSTATIN/TRIAMCIN CREAM 15 GM TUBE TP SCH ×2 (09:00)
[2018-07-20] MEDS: Z GUARD REMEDY 4 OZ OINT TP SCH ×4 (09:00→21:05)
[2018-07-20] MEDS: COD LIVER OIL/ZINC OXIDE 120 GM TUBE TP SCH ×2 (09:00→17:12)
[2018-07-20] MEDS: PROSOURCE / PROSTAT (PYXIS) 30 ML UDC JT SCH ×2 (09:00→17:12)
[2018-07-20] MEDS: RANITIDINE GT SCH ×2 (09:59→21:05)
[2018-07-20] MEDS: POLYVINYL ALCOHOL 15 ML BOTTLE EACHEYE SCH ×4 (09:59→21:04)
[2018-07-20] MEDS: LEVETIRACETAM SOL (5 ML) 100 MG/ML UDC GT SCH ×2 (09:59→21:05)
[2018-07-20] MEDS: JEVITY 1.2 CAL 1,000 ML BOTTLE JT PRN (17:13)
[2018-07-20 20:45] VITALS: BP 104/61
[2018-07-20] MEDS: POLYETHYLENE GLYCOL 3350 17 GM POWD.PACK GT SCH (21:05)
[2018-07-21] MEDS: ALBUTEROL FS 2.5 MG/3 ML VIAL.NEB NEB SCH ×4 (01:27→19:46)
[2018-07-21] MEDS: ERYTHROMYCIN STEARATE 250 MG TABLET GT SCH ×4 (06:14→18:14)
[2018-07-21 07:31] VITALS: BP 119/71
[2018-07-21] MEDS: PROSOURCE / PROSTAT (PYXIS) 30 ML UDC JT SCH ×2 (09:00→17:00)
[2018-07-21] MEDS: POLYVINYL ALCOHOL 15 ML BOTTLE EACHEYE SCH ×4 (09:00→20:53)
[2018-07-21] MEDS: COD LIVER OIL/ZINC OXIDE 120 GM TUBE TP SCH ×2 (09:00→17:00)
[2018-07-21] MEDS: VITS A AND D/WHITE PET/LANOLIN 5 GM PACKET TP SCH ×2 (09:00→20:53)
[2018-07-21] MEDS: POVIDONE-IODINE OINT 28.4 GM TUBE TP SCH ×2 (09:00→20:53)
[2018-07-21] MEDS: RANITIDINE GT SCH ×2 (09:00→20:53)
[2018-07-21] MEDS: Z GUARD REMEDY 4 OZ OINT TP SCH ×4 (09:00→20:53)
[2018-07-21] MEDS: HYDROGEN PEROXIDE 480 ML BOTTLE TP SCH ×2 (09:00→20:53)
[2018-07-21] MEDS: LEVETIRACETAM SOL (5 ML) 100 MG/ML UDC GT SCH ×2 (09:00→20:53)
[2018-07-21 20:28] VITALS: BP 125/77
[2018-07-21] MEDS: POLYETHYLENE GLYCOL 3350 17 GM POWD.PACK GT SCH (21:04)
[2018-07-22] MEDS: ERYTHROMYCIN STEARATE 250 MG TABLET GT SCH ×5 (00:59→23:28)
[2018-07-22] MEDS: ALBUTEROL FS 2.5 MG/3 ML VIAL.NEB NEB SCH ×4 (01:52→19:28)
[2018-07-22 07:48] VITALS: BP 112/70
[2018-07-22] MEDS: RANITIDINE GT SCH ×2 (09:00→21:06)
[2018-07-22] MEDS: Z GUARD REMEDY 4 OZ OINT TP SCH ×4 (09:00→21:07)
[2018-07-22] MEDS: POLYVINYL ALCOHOL 15 ML BOTTLE EACHEYE SCH ×4 (09:00→21:06)
[2018-07-22] MEDS: LEVETIRACETAM SOL (5 ML) 100 MG/ML UDC GT SCH ×2 (09:00→21:06)
[2018-07-22] MEDS: VITS A AND D/WHITE PET/LANOLIN 5 GM PACKET TP SCH ×2 (09:00→21:07)
[2018-07-22] MEDS: HYDROGEN PEROXIDE 480 ML BOTTLE TP SCH ×2 (09:00→21:06)
[2018-07-22] MEDS: POVIDONE-IODINE OINT 28.4 GM TUBE TP SCH ×2 (09:00→21:06)
[2018-07-22] MEDS: COD LIVER OIL/ZINC OXIDE 120 GM TUBE TP SCH ×2 (09:00→17:44)
[2018-07-22] MEDS: PROSOURCE / PROSTAT (PYXIS) 30 ML UDC JT SCH ×2 (09:00→17:44)
[2018-07-22 20:33] VITALS: BP 98/62
[2018-07-22] MEDS: POLYETHYLENE GLYCOL 3350 17 GM POWD.PACK GT SCH (21:07)
[2018-07-23] MEDS: ALBUTEROL FS 2.5 MG/3 ML VIAL.NEB NEB SCH ×4 (01:27→19:57)
[2018-07-23] MEDS: ERYTHROMYCIN STEARATE 250 MG TABLET GT SCH ×4 (05:15→23:41)
[2018-07-23 07:53] VITALS: BP 115/68
[2018-07-23] MEDS: POLYVINYL ALCOHOL 15 ML BOTTLE EACHEYE SCH ×4 (08:03→21:00)
[2018-07-23] MEDS: LEVETIRACETAM SOL (5 ML) 100 MG/ML UDC GT SCH ×2 (08:04→21:00)
[2018-07-23] MEDS: RANITIDINE GT SCH ×2 (08:04→21:00)
[2018-07-23] MEDS: PROSOURCE / PROSTAT (PYXIS) 30 ML UDC JT SCH ×2 (08:04→17:00)
[2018-07-23] MEDS: VITS A AND D/WHITE PET/LANOLIN 5 GM PACKET TP SCH ×2 (09:00→21:00)
[2018-07-23] MEDS: HYDROGEN PEROXIDE 480 ML BOTTLE TP SCH ×2 (09:00→21:00)
[2018-07-23] MEDS: POVIDONE-IODINE OINT 28.4 GM TUBE TP SCH ×2 (09:00→21:00)
[2018-07-23] MEDS: Z GUARD REMEDY 4 OZ OINT TP SCH ×3 (09:00→21:00)
[2018-07-23] MEDS: COD LIVER OIL/ZINC OXIDE 120 GM TUBE TP SCH ×2 (09:00→17:00)
[2018-07-23 20:00] VITALS: BP 114/68
[2018-07-23] MEDS: POLYETHYLENE GLYCOL 3350 17 GM POWD.PACK GT SCH (22:03)
[2018-07-24] MEDS: ALBUTEROL FS 2.5 MG/3 ML VIAL.NEB NEB SCH ×4 (01:41→19:05)
[2018-07-24] MEDS: JEVITY 1.2 CAL 1,000 ML BOTTLE JT PRN (02:15)
[2018-07-24] MEDS: ERYTHROMYCIN STEARATE 250 MG TABLET GT SCH ×4 (05:42→23:32)
[2018-07-24 07:26] VITALS: BP 102/56
[2018-07-24] MEDS: POLYVINYL ALCOHOL 15 ML BOTTLE EACHEYE SCH ×4 (08:38→21:16)
[2018-07-24] MEDS: PROSOURCE / PROSTAT (PYXIS) 30 ML UDC JT SCH ×2 (08:38→17:29)
[2018-07-24] MEDS: LEVETIRACETAM SOL (5 ML) 100 MG/ML UDC GT SCH ×2 (08:38→21:16)
[2018-07-24] MEDS: RANITIDINE GT SCH ×2 (08:38→21:16)
[2018-07-24] MEDS: HYDROGEN PEROXIDE 480 ML BOTTLE TP SCH ×2 (09:00→21:16)
[2018-07-24] MEDS: VITS A AND D/WHITE PET/LANOLIN 5 GM PACKET TP SCH ×2 (09:00→21:16)
[2018-07-24] MEDS: COD LIVER OIL/ZINC OXIDE 120 GM TUBE TP SCH ×2 (09:00→17:34)
[2018-07-24] MEDS: POVIDONE-IODINE OINT 28.4 GM TUBE TP SCH ×2 (09:00→21:16)
[2018-07-24] MEDS: Z GUARD REMEDY 4 OZ OINT TP SCH ×2 (09:00→21:16)
--- NOTE | 2018-07-24 10:10 | NUR ---
Patient seen by Dr. Cleveland, no new orders at this time. Vital signs stable, patient lying down comfortably. Bed at the lowest setting. BMV at bedside.
--- NOTE | 2018-07-24 12:52 | NUR ---
TSERING communicated wit patient's aunt Sugey about IDT mtg on Wednesday 07/26
[2018-07-24 20:07] VITALS: BP 101/69
[2018-07-24] MEDS: POLYETHYLENE GLYCOL 3350 17 GM POWD.PACK GT SCH (21:16)
[2018-07-25] MEDS: JEVITY 1.2 CAL 1,000 ML BOTTLE JT PRN ×2 (01:00→23:58)
[2018-07-25] MEDS: ALBUTEROL FS 2.5 MG/3 ML VIAL.NEB NEB SCH ×4 (01:28→20:13)
[2018-07-25] MEDS: ERYTHROMYCIN STEARATE 250 MG TABLET GT SCH ×4 (06:06→23:58)
[2018-07-25 07:57] VITALS: BP 101/70
[2018-07-25] MEDS: HYDROGEN PEROXIDE 480 ML BOTTLE TP SCH ×2 (09:00→20:50)
[2018-07-25] MEDS: COD LIVER OIL/ZINC OXIDE 120 GM TUBE TP SCH ×2 (09:00→17:02)
[2018-07-25] MEDS: RANITIDINE GT SCH ×2 (09:00→20:50)
[2018-07-25] MEDS: PROSOURCE / PROSTAT (PYXIS) 30 ML UDC JT SCH ×2 (09:00→17:02)
[2018-07-25] MEDS: LEVETIRACETAM SOL (5 ML) 100 MG/ML UDC GT SCH ×2 (09:00→20:50)
[2018-07-25] MEDS: POVIDONE-IODINE OINT 28.4 GM TUBE TP SCH ×2 (09:00→20:50)
[2018-07-25] MEDS: POLYVINYL ALCOHOL 15 ML BOTTLE EACHEYE SCH ×4 (09:00→20:49)
[2018-07-25] MEDS: Z GUARD REMEDY 4 OZ OINT TP SCH ×2 (09:01→20:50)
[2018-07-25] MEDS: VITS A AND D/WHITE PET/LANOLIN 5 GM PACKET TP SCH ×2 (09:01→20:50)
[2018-07-25 20:05] VITALS: BP 106/68
--- NOTE | 2018-07-25 20:39 | NUR ---
PT RCVD TRACH'D ON MECHANICAL VENT WITH CHARTED SETTINGS. HHN TX BRAULIO WELL. SX DONE. PT TRACH IS PATENT AND SECURE. VENT PLUGGED INTO RED OUTLET. ALARMS ARE ON AND AUDIBLE. AMBU BAG AT BEDSIDE. WILL CONTINUE TO MONITOR. Addendum: 07/25/18 at 2038 by STANFORD PETERS RT Amended: Links added.
[2018-07-25] MEDS: POLYETHYLENE GLYCOL 3350 17 GM POWD.PACK GT SCH (21:32)
[2018-07-26] MEDS: ALBUTEROL FS 2.5 MG/3 ML VIAL.NEB NEB SCH ×4 (00:46→20:07)
[2018-07-26] MEDS: ERYTHROMYCIN STEARATE 250 MG TABLET GT SCH ×4 (05:41→23:50)
--- NOTE | 2018-07-26 07:33 | NUR ---
Male wade pt received on a mechanical vent. Pt wade is secure. Vent is plugged into a red outlet,alarms are set and audible, and BMV is at bedside. Addendum: 07/26/18 at 0734 by ANGELO RIZVI RT Amended: Links added.
[2018-07-26 07:51] VITALS: BP 101/65
--- NOTE | 2018-07-26 08:47 | NUR ---
WOUND CARE CONSULT: PT SEEN FOR LEFT DORSAL HAND ESCHAR WHICH MEASURES 1.8CM X 1CM X UTD AND IS BROWN IN COLOR. NO DRAINAGE, ODOR OR TENDERNESS NOTED. RECOMMEND SURGICAL CONSULT. DR ANTOINE VARMA AWARE OF SURGICAL CONSULT REQUEST. WILL SEE PRN.
[2018-07-26] MEDS: Z GUARD REMEDY 4 OZ OINT TP SCH ×2 (09:00→21:00)
[2018-07-26] MEDS: HYDROGEN PEROXIDE 480 ML BOTTLE TP SCH ×2 (09:00→21:00)
[2018-07-26] MEDS: PROSOURCE / PROSTAT (PYXIS) 30 ML UDC JT SCH ×2 (09:00→17:46)
[2018-07-26] MEDS: LEVETIRACETAM SOL (5 ML) 100 MG/ML UDC GT SCH ×2 (09:00→21:00)
[2018-07-26] MEDS: VITS A AND D/WHITE PET/LANOLIN 5 GM PACKET TP SCH ×2 (09:00→21:00)
[2018-07-26] MEDS: RANITIDINE GT SCH ×2 (09:00→21:00)
[2018-07-26] MEDS: COD LIVER OIL/ZINC OXIDE 120 GM TUBE TP SCH ×2 (09:00→17:46)
[2018-07-26] MEDS: POVIDONE-IODINE OINT 28.4 GM TUBE TP SCH (09:00)
[2018-07-26] MEDS: POLYVINYL ALCOHOL 15 ML BOTTLE EACHEYE SCH ×4 (09:00→21:00)
--- NOTE | 2018-07-26 11:45 | NUR ---
Wound consult with Lisset Perez PAC regarding discoloration in the L hand due to IV infiltration that is now brownish is color. Order to continue with Betadine and leave open to air. Father who is at bedside informed.
--- NOTE | 2018-07-26 14:00 | NUR ---
INTERDISCIPLINARY TEAM CONFERENCE was held today. Resident's father and aunt at bedside. They are unable to stay for the meeting but preferred to be brief on the patient's condition at bedside. Explained that patient was seen by GARDENIA Darling for wound consultation due to the eschar in the L hand which was caused by IV infiltration. Patient's IV was infiltrated at that time because the patient has been using his hands/fingers to navigate his tablet. Father is requesting if patient can eat. Dr. Cleveland and the interdisciplinary team reviewed the current plan of care in detail. Orders as well as treatment and medications were reviewed. Informed Dr. Cleveland of father's request for swallow eval. ST informed. No other order given.
[2018-07-26 20:54] VITALS: BP 104/63
--- NOTE | 2018-07-26 20:54 | NUR ---
PT RCVD TRACH'D ON MECHANICAL VENT WITH CHARTED SETTINGS. HHN TX BRAULIO WELL. SX DONE. PT TRACH IS PATENT AND SECURE. VENT PLUGGED INTO RED OUTLET. ALARMS ARE ON AND AUDIBLE. AMBU BAG AT BEDSIDE. WILL CONTINUE TO MONITOR. Addendum: 07/26/18 at 2053 by STANFORD PETERS RT Amended: Links added.
[2018-07-26] MEDS: POLYETHYLENE GLYCOL 3350 17 GM POWD.PACK GT SCH (21:00)
[2018-07-27] MEDS: ALBUTEROL FS 2.5 MG/3 ML VIAL.NEB NEB SCH ×4 (00:58→18:57)
[2018-07-27] MEDS: ERYTHROMYCIN STEARATE 250 MG TABLET GT SCH ×3 (05:23→17:53)
[2018-07-27] MEDS: JEVITY 1.2 CAL 1,000 ML BOTTLE JT PRN (05:56)
[2018-07-27] MEDS: Z GUARD REMEDY 4 OZ OINT TP SCH ×2 (09:37→21:04)
[2018-07-27] MEDS: LEVETIRACETAM SOL (5 ML) 100 MG/ML UDC GT SCH ×2 (09:37→21:03)
[2018-07-27] MEDS: HYDROGEN PEROXIDE 480 ML BOTTLE TP SCH ×2 (09:37→21:04)
[2018-07-27] MEDS: VITS A AND D/WHITE PET/LANOLIN 5 GM PACKET TP SCH ×2 (09:37→21:04)
[2018-07-27] MEDS: PROSOURCE / PROSTAT (PYXIS) 30 ML UDC JT SCH ×2 (09:37→17:53)
[2018-07-27] MEDS: COD LIVER OIL/ZINC OXIDE 120 GM TUBE TP SCH ×2 (09:37→17:53)
[2018-07-27] MEDS: POLYVINYL ALCOHOL 15 ML BOTTLE EACHEYE SCH ×4 (09:37→21:03)
[2018-07-27] MEDS: RANITIDINE GT SCH ×2 (09:40→21:00)
[2018-07-27 12:45] VITALS: BP 101/57
[2018-07-27 20:01] VITALS: BP 94/56
[2018-07-27] MEDS: POLYETHYLENE GLYCOL 3350 17 GM POWD.PACK GT SCH (21:04)
[2018-07-28] MEDS: ERYTHROMYCIN STEARATE 250 MG TABLET GT SCH ×4 (00:39→18:10)
[2018-07-28] MEDS: ALBUTEROL FS 2.5 MG/3 ML VIAL.NEB NEB SCH ×4 (00:49→20:09)
[2018-07-28] MEDS: JEVITY 1.2 CAL 1,000 ML BOTTLE JT PRN (05:41)
[2018-07-28 07:39] VITALS: BP 123/60
[2018-07-28] MEDS: HYDROGEN PEROXIDE 480 ML BOTTLE TP SCH ×2 (09:00→21:03)
[2018-07-28] MEDS: VITS A AND D/WHITE PET/LANOLIN 5 GM PACKET TP SCH ×2 (09:00→21:04)
[2018-07-28] MEDS: Z GUARD REMEDY 4 OZ OINT TP SCH ×2 (09:00→21:03)
[2018-07-28] MEDS: COD LIVER OIL/ZINC OXIDE 120 GM TUBE TP SCH ×2 (09:00→17:00)
[2018-07-28] MEDS: LEVETIRACETAM SOL (5 ML) 100 MG/ML UDC GT SCH ×2 (09:00→21:03)
[2018-07-28] MEDS: PROSOURCE / PROSTAT (PYXIS) 30 ML UDC JT SCH ×2 (09:00→17:00)
[2018-07-28] MEDS: RANITIDINE GT SCH ×2 (09:00→21:03)
[2018-07-28] MEDS: POLYVINYL ALCOHOL 15 ML BOTTLE EACHEYE SCH ×4 (09:00→21:03)
[2018-07-28 20:00] VITALS: BP 115/66
--- NOTE | 2018-07-28 20:44 | NUR ---
RT NOTE PATIENT RECEIVED TRACHED ON MECHANICAL VENTILATION. VENT PLUGGED TO RED OUTLET. AMBU BAG/BACK UP TRACH @ BEDSIDE. TX GIVEN, NO ADVERSE REACTIONS NOTED. SX DONE, SMALL THICK WHITE SECRETIONS NOTED. ORAL SX DONE. ALARMS ON AND AUDIBLE. WILL MONITOR T/O SHIFT. Addendum: 07/28/18 at 2044 by MILAN CARRASCO RT Amended: Links added.
[2018-07-28] MEDS: POLYETHYLENE GLYCOL 3350 17 GM POWD.PACK GT SCH (21:04)
[2018-07-29] MEDS: ERYTHROMYCIN STEARATE 250 MG TABLET GT SCH ×4 (00:13→17:43)
[2018-07-29] MEDS: ALBUTEROL FS 2.5 MG/3 ML VIAL.NEB NEB SCH ×4 (01:37→19:24)
[2018-07-29 08:10] VITALS: BP 92/55
[2018-07-29] MEDS: HYDROGEN PEROXIDE 480 ML BOTTLE TP SCH ×2 (09:52→20:51)
[2018-07-29] MEDS: RANITIDINE GT SCH ×2 (09:52→20:51)
[2018-07-29] MEDS: VITS A AND D/WHITE PET/LANOLIN 5 GM PACKET TP SCH ×2 (09:52→20:51)
[2018-07-29] MEDS: PROSOURCE / PROSTAT (PYXIS) 30 ML UDC JT SCH ×2 (09:52→17:43)
[2018-07-29] MEDS: COD LIVER OIL/ZINC OXIDE 120 GM TUBE TP SCH ×2 (09:52→17:43)
[2018-07-29] MEDS: Z GUARD REMEDY 4 OZ OINT TP SCH ×2 (09:52→20:51)
[2018-07-29] MEDS: LEVETIRACETAM SOL (5 ML) 100 MG/ML UDC GT SCH ×2 (09:52→20:51)
[2018-07-29] MEDS: POLYVINYL ALCOHOL 15 ML BOTTLE EACHEYE SCH ×4 (09:52→20:51)
[2018-07-29 19:57] VITALS: BP 98/58
[2018-07-29] MEDS: POLYETHYLENE GLYCOL 3350 17 GM POWD.PACK GT SCH (21:02)
[2018-07-30] MEDS: ALBUTEROL FS 2.5 MG/3 ML VIAL.NEB NEB SCH ×4 (00:52→19:36)
[2018-07-30] MEDS: ERYTHROMYCIN STEARATE 250 MG TABLET GT SCH ×4 (05:36→17:21)
--- NOTE | 2018-07-30 07:27 | NUR ---
Received male wade pt on a mechanical vent. Pt wade is secure. Vent is plugged into a red outlet, alarms are set and audible, and BMV is at bedside. Addendum: 07/30/18 at 0729 by ANGELO RIZVI RT Amended: Links added.
[2018-07-30 07:40] VITALS: BP 107/70
[2018-07-30] MEDS: RANITIDINE GT SCH ×2 (09:14→21:17)
[2018-07-30] MEDS: PROSOURCE / PROSTAT (PYXIS) 30 ML UDC JT SCH ×2 (09:14→17:21)
[2018-07-30] MEDS: LEVETIRACETAM SOL (5 ML) 100 MG/ML UDC GT SCH ×2 (09:14→21:17)
[2018-07-30] MEDS: COD LIVER OIL/ZINC OXIDE 120 GM TUBE TP SCH ×2 (09:14→17:21)
[2018-07-30] MEDS: POLYVINYL ALCOHOL 15 ML BOTTLE EACHEYE SCH ×4 (09:14→21:16)
[2018-07-30] MEDS: Z GUARD REMEDY 4 OZ OINT TP SCH ×2 (09:15→21:17)
[2018-07-30] MEDS: HYDROGEN PEROXIDE 480 ML BOTTLE TP SCH ×2 (09:15→21:17)
[2018-07-30] MEDS: VITS A AND D/WHITE PET/LANOLIN 5 GM PACKET TP SCH ×2 (09:15→21:17)
[2018-07-30 20:42] VITALS: BP 104/64
[2018-07-30] MEDS: POLYETHYLENE GLYCOL 3350 17 GM POWD.PACK GT SCH (21:17)
[2018-07-31] MEDS: ERYTHROMYCIN STEARATE 250 MG TABLET GT SCH ×4 (00:15→17:27)
[2018-07-31] MEDS: ALBUTEROL FS 2.5 MG/3 ML VIAL.NEB NEB SCH ×4 (02:04→19:56)
[2018-07-31 08:08] VITALS: BP 102/64
[2018-07-31] MEDS: Z GUARD REMEDY 4 OZ OINT TP SCH ×2 (08:21→21:02)
[2018-07-31] MEDS: LEVETIRACETAM SOL (5 ML) 100 MG/ML UDC GT SCH ×2 (08:21→21:02)
[2018-07-31] MEDS: COD LIVER OIL/ZINC OXIDE 120 GM TUBE TP SCH ×2 (08:21→17:27)
[2018-07-31] MEDS: VITS A AND D/WHITE PET/LANOLIN 5 GM PACKET TP SCH ×2 (08:21→21:02)
[2018-07-31] MEDS: HYDROGEN PEROXIDE 480 ML BOTTLE TP SCH ×2 (08:21→21:02)
[2018-07-31] MEDS: RANITIDINE GT SCH ×2 (08:21→21:02)
[2018-07-31] MEDS: POLYVINYL ALCOHOL 15 ML BOTTLE EACHEYE SCH ×4 (08:21→21:02)
[2018-07-31] MEDS: PROSOURCE / PROSTAT (PYXIS) 30 ML UDC JT SCH ×2 (08:21→17:27)
[2018-07-31] MEDS: JEVITY 1.2 CAL 1,000 ML BOTTLE JT PRN (14:54)
--- NOTE | 2018-07-31 19:56 | NUR ---
RT NOTE: RECEIVED TRACH PT ON [facility] VENT ON NOTED SETTINGS PER MD ORDERS. TRACH IS PATENT AND SECURED. CUSTOMER SUCCESS ASSOCIATE DONE. Q6 BREATHING TX GIVEN WITH NO ADVERSE REACTION NOTED. SX DONE PRN. VENT PLUGGED INTO RED OUTLET. ALARMS ON AND AUDIBLE. RAGHU BAG @ BEDSIDE. NO RESP DISTRESS AT THIS TIME. WILL CONT TO MONITOR PT. Addendum: 08/01/18 at 0421 by CIRILO LOZOYA RT Amended: Links added.
[2018-07-31 20:00] VITALS: BP 102/58
[2018-07-31] MEDS: POLYETHYLENE GLYCOL 3350 17 GM POWD.PACK GT SCH (21:02)
[2018-08-01] MEDS: ERYTHROMYCIN STEARATE 250 MG TABLET GT SCH ×4 (00:23→18:48)
[2018-08-01] MEDS: ALBUTEROL FS 2.5 MG/3 ML VIAL.NEB NEB SCH ×4 (01:39→19:40)
[2018-08-01 07:41] VITALS: BP 108/60
[2018-08-01] MEDS: LEVETIRACETAM SOL (5 ML) 100 MG/ML UDC GT SCH ×2 (09:00→20:35)
[2018-08-01] MEDS: COD LIVER OIL/ZINC OXIDE 120 GM TUBE TP SCH ×2 (09:00→17:00)
[2018-08-01] MEDS: PROSOURCE / PROSTAT (PYXIS) 30 ML UDC JT SCH ×2 (09:00→17:00)
[2018-08-01] MEDS: HYDROGEN PEROXIDE 480 ML BOTTLE TP SCH ×2 (09:00→20:35)
[2018-08-01] MEDS: VITS A AND D/WHITE PET/LANOLIN 5 GM PACKET TP SCH ×2 (09:00→20:35)
[2018-08-01] MEDS: RANITIDINE GT SCH ×2 (09:00→20:35)
[2018-08-01] MEDS: Z GUARD REMEDY 4 OZ OINT TP SCH ×2 (09:00→20:35)
[2018-08-01] MEDS: POLYVINYL ALCOHOL 15 ML BOTTLE EACHEYE SCH ×4 (09:00→20:35)
[2018-08-01] MEDS: JEVITY 1.2 CAL 1,000 ML BOTTLE JT PRN (19:19)
[2018-08-01 20:29] VITALS: BP 111/63
[2018-08-01] MEDS: POLYETHYLENE GLYCOL 3350 17 GM POWD.PACK GT SCH (22:32)
[2018-08-02] MEDS: ERYTHROMYCIN STEARATE 250 MG TABLET GT SCH ×5 (00:03→23:16)
[2018-08-02] MEDS: ALBUTEROL FS 2.5 MG/3 ML VIAL.NEB NEB SCH ×4 (01:46→19:58)
--- NOTE | 2018-08-02 07:29 | NUR ---
Male trach pt received unlabored on a mechanical vent. Pt wade is secure. Vent is plugged into a red outlet, alarms are set and audible, and BMV is at bedside. Addendum: 08/02/18 at 0730 by ANGELO RIZVI RT Amended: Links added.
[2018-08-02 07:50] VITALS: BP 104/74
[2018-08-02] MEDS: LEVETIRACETAM SOL (5 ML) 100 MG/ML UDC GT SCH ×2 (08:26→20:50)
[2018-08-02] MEDS: RANITIDINE GT SCH ×2 (08:26→20:50)
[2018-08-02] MEDS: PROSOURCE / PROSTAT (PYXIS) 30 ML UDC JT SCH ×2 (08:26→17:46)
[2018-08-02] MEDS: POLYVINYL ALCOHOL 15 ML BOTTLE EACHEYE SCH ×4 (08:26→20:47)
[2018-08-02] MEDS: VITS A AND D/WHITE PET/LANOLIN 5 GM PACKET TP SCH ×2 (09:00→20:50)
[2018-08-02] MEDS: COD LIVER OIL/ZINC OXIDE 120 GM TUBE TP SCH ×2 (09:00→17:46)
[2018-08-02] MEDS: Z GUARD REMEDY 4 OZ OINT TP SCH ×2 (09:00→20:50)
[2018-08-02] MEDS: HYDROGEN PEROXIDE 480 ML BOTTLE TP SCH ×2 (09:00→20:50)
[2018-08-02] MEDS: JEVITY 1.2 CAL 1,000 ML BOTTLE JT PRN (17:56)
[2018-08-02 20:05] VITALS: BP 101/61
--- NOTE | 2018-08-02 20:33 | NUR ---
RT NOTE PT RCVD TRACH'D ON MECHANICAL VENT WITH CHARTED SETTINGS. PT BRAULIO TX WELL. SX DONE. PT TRACH IS PATENT AND SECURE. VENT IS PLUGGED INTO RED OUTLET. ALARMS ARE ON AND AUDIBLE. AMBU BAG AT BEDSIDE. WILL CONTINUE TO MONITOR. Addendum: 08/02/18 at 2033 by STANFORD PETERS RT Amended: Links added.
[2018-08-02] MEDS: POLYETHYLENE GLYCOL 3350 17 GM POWD.PACK GT SCH (21:22)
[2018-08-03] MEDS: ALBUTEROL FS 2.5 MG/3 ML VIAL.NEB NEB SCH ×4 (01:12→19:50)
[2018-08-03] MEDS: ERYTHROMYCIN STEARATE 250 MG TABLET GT SCH ×4 (05:09→23:20)
[2018-08-03 08:06] VITALS: BP 88/56
[2018-08-03] MEDS: Z GUARD REMEDY 4 OZ OINT TP SCH ×2 (08:39→20:13)
[2018-08-03] MEDS: LEVETIRACETAM SOL (5 ML) 100 MG/ML UDC GT SCH ×2 (08:39→20:13)
[2018-08-03] MEDS: PROSOURCE / PROSTAT (PYXIS) 30 ML UDC JT SCH ×2 (08:39→17:13)
[2018-08-03] MEDS: HYDROGEN PEROXIDE 480 ML BOTTLE TP SCH ×2 (08:39→20:13)
[2018-08-03] MEDS: POLYVINYL ALCOHOL 15 ML BOTTLE EACHEYE SCH ×4 (08:39→20:13)
[2018-08-03] MEDS: COD LIVER OIL/ZINC OXIDE 120 GM TUBE TP SCH ×2 (08:39→17:13)
[2018-08-03] MEDS: VITS A AND D/WHITE PET/LANOLIN 5 GM PACKET TP SCH ×2 (08:39→20:13)
[2018-08-03] MEDS: RANITIDINE GT SCH ×2 (08:39→20:13)
[2018-08-03] MEDS: JEVITY 1.2 CAL 1,000 ML BOTTLE JT PRN (17:13)
[2018-08-03 20:17] VITALS: BP 109/64
[2018-08-03] MEDS: POLYETHYLENE GLYCOL 3350 17 GM POWD.PACK GT SCH (21:10)
[2018-08-04] MEDS: ALBUTEROL FS 2.5 MG/3 ML VIAL.NEB NEB SCH ×4 (02:22→20:07)
[2018-08-04] MEDS: ERYTHROMYCIN STEARATE 250 MG TABLET GT SCH ×4 (05:11→23:05)
[2018-08-04 07:28] VITALS: BP 106/55
[2018-08-04] MEDS: COD LIVER OIL/ZINC OXIDE 120 GM TUBE TP SCH ×2 (09:00→17:00)
[2018-08-04] MEDS: HYDROGEN PEROXIDE 480 ML BOTTLE TP SCH ×2 (09:00→20:54)
[2018-08-04] MEDS: Z GUARD REMEDY 4 OZ OINT TP SCH ×2 (09:00→20:54)
[2018-08-04] MEDS: VITS A AND D/WHITE PET/LANOLIN 5 GM PACKET TP SCH ×2 (09:00→20:55)
[2018-08-04] MEDS: POLYVINYL ALCOHOL 15 ML BOTTLE EACHEYE SCH ×4 (09:39→20:54)
[2018-08-04] MEDS: RANITIDINE GT SCH ×2 (09:39→20:54)
[2018-08-04] MEDS: LEVETIRACETAM SOL (5 ML) 100 MG/ML UDC GT SCH ×2 (09:40→20:54)
[2018-08-04] MEDS: PROSOURCE / PROSTAT (PYXIS) 30 ML UDC JT SCH ×2 (09:40→17:00)
--- NOTE | 2018-08-04 11:54 | NUR ---
Spoke to Dr. Londono, regarding Jtube and gtube, Jtube is plugged, and gtube connection is broken, spoke to central if they had a replacement, central supply does not have a replacement. Per Dr. Londono he will replace Jtube/gtube tomorrow, and keep the patient on NPO. Responsible constitution party made aware
--- NOTE | 2018-08-04 17:04 | NUR ---
Spoke to Dr. Cleveland with new orders to start hydration, d5ns at 80ml/hr, order carried out, responsible alliance party aware. IV hydration started on right hand, with [id number].
[2018-08-04] MEDS ORDERED: IV D5/ 0.9% NACL 1,000 ML IV PRN (17:30)
[2018-08-04] MEDS: JEVITY 1.2 CAL 1,000 ML BOTTLE JT PRN (17:37)
[2018-08-04 19:42] VITALS: BP 103/61
--- NOTE | 2018-08-04 20:07 | NUR ---
RT NOTE: RECEIVED TRACH PT ON [facility] VENT ON NOTED SETTINGS PER MD ORDERS. TRACH IS PATENT AND SECURED. STEVEDORING SUPERINTENDENT DONE. Q6 BREATHING TX GIVEN WITH NO ADVERSE REACTION NOTED. SX DONE PRN. VENT PLUGGED INTO RED OUTLET. ALARMS ON AND AUDIBLE. RAGHU BAG @ BEDSIDE. NO RESP DISTRESS AT THIS TIME. WILL CONT TO MONITOR PT. Addendum: 08/05/18 at 0238 by CIRILO LOZOYA RT Amended: Links added.
[2018-08-04] MEDS: POLYETHYLENE GLYCOL 3350 17 GM POWD.PACK GT SCH (22:00)
[2018-08-05] MEDS: ALBUTEROL FS 2.5 MG/3 ML VIAL.NEB NEB SCH ×4 (01:45→19:22)
[2018-08-05] MEDS: ERYTHROMYCIN STEARATE 250 MG TABLET GT SCH ×4 (06:16→23:26)
--- NOTE | 2018-08-05 07:55 | NUR ---
Male wade pt received on a mechanical vent. Pt wade is secure. Vent is plugged into a red outlet, alarms are set and audible, and BMV is at bedside. Addendum: 08/05/18 at 0755 by ANGELO RIZVI RT Amended: Links added.
[2018-08-05] MEDS: Z GUARD REMEDY 4 OZ OINT TP SCH ×2 (09:00→20:11)
[2018-08-05] MEDS: VITS A AND D/WHITE PET/LANOLIN 5 GM PACKET TP SCH ×2 (09:00→20:11)
[2018-08-05] MEDS: HYDROGEN PEROXIDE 480 ML BOTTLE TP SCH ×2 (09:00→20:11)
--- NOTE | 2018-08-05 09:05 | NUR ---
Seen by Dr Hein this morning. Flushed both G and J ports and both are patent. Dr Hein said he will not change the GJ tube anymore and to use the existing tube. He said to start feeding via J-tube with a low rate until goal rate is reached. Addendum: 08/05/18 at 0956 by AMA EL RN Ania Mayes.
[2018-08-05] MEDS: LEVETIRACETAM SOL (5 ML) 100 MG/ML UDC GT SCH ×2 (09:57→20:11)
[2018-08-05] MEDS: COD LIVER OIL/ZINC OXIDE 120 GM TUBE TP SCH ×2 (09:57→17:47)
[2018-08-05] MEDS: RANITIDINE GT SCH ×2 (09:57→20:11)
[2018-08-05] MEDS: PROSOURCE / PROSTAT (PYXIS) 30 ML UDC JT SCH ×2 (09:57→17:47)
[2018-08-05] MEDS: POLYVINYL ALCOHOL 15 ML BOTTLE EACHEYE SCH ×4 (09:57→20:11)
[2018-08-05] MEDS: JEVITY 1.2 CAL 1,000 ML BOTTLE JT PRN (10:10)
--- NOTE | 2018-08-05 10:30 | NUR ---
Notified Dr Cleveland that pt was seen by Dr Hein and GJ tube will not be replaced since it is functioning well. Dr Cleveland ordered to DC D5 NS. Jevity 1.2 resumed via JT at a rate of 20 mL/hr at this time, will slowly increase until goal rate of 50 mL/hr is reached. Removed peripheral IV lines on right hand and left forearm. No infiltration, no redness noted. Pt's father visiting and aware of new orders.
[2018-08-05 11:47] VITALS: BP 123/76
[2018-08-05 19:47] VITALS: BP 102/67
[2018-08-05] MEDS: POLYETHYLENE GLYCOL 3350 17 GM POWD.PACK GT SCH (22:04)
[2018-08-06] MEDS: ALBUTEROL FS 2.5 MG/3 ML VIAL.NEB NEB SCH ×4 (00:42→19:27)
[2018-08-06] MEDS: ERYTHROMYCIN STEARATE 250 MG TABLET GT SCH ×4 (06:00→23:24)
[2018-08-06 07:54] VITALS: BP 110/72
[2018-08-06] MEDS: LEVETIRACETAM SOL (5 ML) 100 MG/ML UDC GT SCH ×2 (08:25→20:13)
[2018-08-06] MEDS: RANITIDINE GT SCH ×2 (08:25→20:13)
[2018-08-06] MEDS: PROSOURCE / PROSTAT (PYXIS) 30 ML UDC JT SCH ×2 (08:25→17:11)
[2018-08-06] MEDS: POLYVINYL ALCOHOL 15 ML BOTTLE EACHEYE SCH ×4 (08:25→20:13)
[2018-08-06] MEDS: COD LIVER OIL/ZINC OXIDE 120 GM TUBE TP SCH ×2 (08:26→17:11)
[2018-08-06] MEDS: HYDROGEN PEROXIDE 480 ML BOTTLE TP SCH ×2 (08:26→20:13)
[2018-08-06] MEDS: VITS A AND D/WHITE PET/LANOLIN 5 GM PACKET TP SCH ×2 (08:26→20:14)
[2018-08-06] MEDS: Z GUARD REMEDY 4 OZ OINT TP SCH ×2 (08:26→20:13)
[2018-08-06] MEDS: POVIDONE-IODINE OINT 28.4 GM TUBE TP SCH (20:13)
[2018-08-06 20:25] VITALS: BP 94/53
[2018-08-06] MEDS: POLYETHYLENE GLYCOL 3350 17 GM POWD.PACK GT SCH (21:45)
[2018-08-07] MEDS: ALBUTEROL FS 2.5 MG/3 ML VIAL.NEB NEB SCH ×4 (01:32→20:07)
[2018-08-07] MEDS: ERYTHROMYCIN STEARATE 250 MG TABLET GT SCH ×4 (05:28→23:18)
[2018-08-07 07:55] VITALS: BP 106/66
[2018-08-07] MEDS: RANITIDINE GT SCH ×2 (09:00→20:09)
[2018-08-07] MEDS: VITS A AND D/WHITE PET/LANOLIN 5 GM PACKET TP SCH ×2 (09:00→20:09)
[2018-08-07] MEDS: POVIDONE-IODINE OINT 28.4 GM TUBE TP SCH ×2 (09:00→20:09)
[2018-08-07] MEDS: PROSOURCE / PROSTAT (PYXIS) 30 ML UDC JT SCH ×2 (09:00→17:00)
[2018-08-07] MEDS: HYDROGEN PEROXIDE 480 ML BOTTLE TP SCH ×2 (09:00→20:09)
[2018-08-07] MEDS: POLYVINYL ALCOHOL 15 ML BOTTLE EACHEYE SCH ×4 (09:00→20:09)
[2018-08-07] MEDS: LEVETIRACETAM SOL (5 ML) 100 MG/ML UDC GT SCH ×2 (09:00→20:09)
[2018-08-07] MEDS: COD LIVER OIL/ZINC OXIDE 120 GM TUBE TP SCH ×2 (09:00→17:00)
[2018-08-07] MEDS: Z GUARD REMEDY 4 OZ OINT TP SCH ×2 (09:00→20:09)
[2018-08-07 19:42] VITALS: BP 113/65
--- NOTE | 2018-08-07 20:26 | NUR ---
RT NOTE PT RCVD TRACH'D ON MECHANICAL VENT WITH CHARTED SETTINGS. TX BRAULIO WELL. SX DONE. PT TRACH IS PATENT AND SECURE. VENT IS PLUGGED INTO RED OUTLET. ALARMS ARE ON AND AUDIBLE. AMBU BAG AT BEDSIDE. WILL CONTINUE TO MONITOR. Addendum: 08/07/18 at 2025 by STANFORD PETERS RT Amended: Links added.
[2018-08-07] MEDS: POLYETHYLENE GLYCOL 3350 17 GM POWD.PACK GT SCH (21:33)
[2018-08-08] MEDS: ALBUTEROL FS 2.5 MG/3 ML VIAL.NEB NEB SCH ×4 (01:22→19:57)
[2018-08-08] MEDS: ERYTHROMYCIN STEARATE 250 MG TABLET GT SCH ×4 (05:34→23:54)
[2018-08-08 07:54] VITALS: BP 90/50
--- NOTE | 2018-08-08 08:26 | NUR ---
RT NOTE PT RCVD TRACH'D ON MECHANICAL VENT WITH CHARTED SETTINGS. TX BRAULIO WELL. SX DONE. PT TRACH IS PATENT AND SECURE. VENT IS PLUGGED INTO RED OUTLET. ALARMS ARE ON AND AUDIBLE. AMBU BAG AT BEDSIDE. WILL CONTINUE TO MONITOR.
[2018-08-08] MEDS: RANITIDINE GT SCH ×2 (08:36→20:23)
[2018-08-08] MEDS: LEVETIRACETAM SOL (5 ML) 100 MG/ML UDC GT SCH ×2 (08:36→20:23)
[2018-08-08] MEDS: POLYVINYL ALCOHOL 15 ML BOTTLE EACHEYE SCH ×4 (08:36→20:22)
[2018-08-08] MEDS: COD LIVER OIL/ZINC OXIDE 120 GM TUBE TP SCH ×2 (08:36→17:00)
[2018-08-08] MEDS: PROSOURCE / PROSTAT (PYXIS) 30 ML UDC JT SCH ×2 (08:36→17:00)
[2018-08-08] MEDS: POVIDONE-IODINE OINT 28.4 GM TUBE TP SCH ×2 (08:36→20:23)
[2018-08-08] MEDS: HYDROGEN PEROXIDE 480 ML BOTTLE TP SCH ×2 (09:39→20:23)
[2018-08-08] MEDS: Z GUARD REMEDY 4 OZ OINT TP SCH ×2 (09:39→20:23)
[2018-08-08] MEDS: VITS A AND D/WHITE PET/LANOLIN 5 GM PACKET TP SCH ×2 (09:39→20:23)
[2018-08-08] MEDS: JEVITY 1.2 CAL 1,000 ML BOTTLE JT PRN (13:18)
--- NOTE | 2018-08-08 20:16 | NUR ---
RT NOTE PT RCVD TRACH'D ON MECHANICAL VENT WITH CHARTED SETTINGS. TX BRAULIO WELL. SX DONE. PT TRACH IS PATENT AND SECURE. VENT IS PLUGGED INTO RED OUTLET. ALARMS ARE ON AND AUDIBLE. AMBU BAG AT BEDSIDE. WILL CONTINUE TO MONITOR. Addendum: 08/08/18 at 2016 by STANFORD PETERS RT Amended: Links added.
[2018-08-08] MEDS: POLYETHYLENE GLYCOL 3350 17 GM POWD.PACK GT SCH (21:09)
[2018-08-08 23:35] VITALS: BP 114/66
[2018-08-09] MEDS: ALBUTEROL FS 2.5 MG/3 ML VIAL.NEB NEB SCH ×4 (00:50→19:49)
[2018-08-09] MEDS: ERYTHROMYCIN STEARATE 250 MG TABLET GT SCH ×4 (05:23→23:28)
[2018-08-09 07:35] VITALS: BP 100/57
--- NOTE | 2018-08-09 07:55 | NUR ---
Trach pt received on a mechanical vent. Pt trach is secure. Vent is plugged into a red outlet, alarms are set and audible, and BMV is at bedside. Addendum: 08/09/18 at 0755 by ANGELO RIZVI RT Amended: Links added.
[2018-08-09] MEDS: RANITIDINE GT SCH ×2 (08:52→20:26)
[2018-08-09] MEDS: LEVETIRACETAM SOL (5 ML) 100 MG/ML UDC GT SCH ×2 (08:52→20:26)
[2018-08-09] MEDS: POLYVINYL ALCOHOL 15 ML BOTTLE EACHEYE SCH ×4 (08:52→20:26)
[2018-08-09] MEDS: POVIDONE-IODINE OINT 28.4 GM TUBE TP SCH ×2 (08:52→20:27)
[2018-08-09] MEDS: PROSOURCE / PROSTAT (PYXIS) 30 ML UDC JT SCH ×2 (08:52→16:43)
[2018-08-09] MEDS: COD LIVER OIL/ZINC OXIDE 120 GM TUBE TP SCH ×2 (08:52→16:43)
[2018-08-09] MEDS: Z GUARD REMEDY 4 OZ OINT TP SCH ×2 (08:53→20:27)
[2018-08-09] MEDS: VITS A AND D/WHITE PET/LANOLIN 5 GM PACKET TP SCH ×2 (08:53→20:27)
[2018-08-09] MEDS: HYDROGEN PEROXIDE 480 ML BOTTLE TP SCH ×2 (08:53→20:27)
[2018-08-09] MEDS: JEVITY 1.2 CAL 1,000 ML BOTTLE JT PRN (13:00)
[2018-08-09 20:30] VITALS: BP 146/96
[2018-08-09 20:32] VITALS: BP 95/53
[2018-08-09] MEDS: POLYETHYLENE GLYCOL 3350 17 GM POWD.PACK GT SCH (21:03)
[2018-08-10] MEDS: ALBUTEROL FS 2.5 MG/3 ML VIAL.NEB NEB SCH ×4 (01:44→19:30)
[2018-08-10] MEDS: ERYTHROMYCIN STEARATE 250 MG TABLET GT SCH ×4 (05:20→23:43)
[2018-08-10 08:00] VITALS: BP 108/64
[2018-08-10] MEDS: RANITIDINE GT SCH ×2 (08:36→20:13)
[2018-08-10] MEDS: LEVETIRACETAM SOL (5 ML) 100 MG/ML UDC GT SCH ×2 (08:36→20:13)
[2018-08-10] MEDS: Z GUARD REMEDY 4 OZ OINT TP SCH ×2 (08:36→20:14)
[2018-08-10] MEDS: POLYVINYL ALCOHOL 15 ML BOTTLE EACHEYE SCH ×4 (08:36→20:12)
[2018-08-10] MEDS: PROSOURCE / PROSTAT (PYXIS) 30 ML UDC JT SCH ×2 (08:36→17:37)
[2018-08-10] MEDS: COD LIVER OIL/ZINC OXIDE 120 GM TUBE TP SCH ×2 (08:36→17:37)
[2018-08-10] MEDS: POVIDONE-IODINE OINT 28.4 GM TUBE TP SCH ×2 (08:36→20:13)
[2018-08-10] MEDS: HYDROGEN PEROXIDE 480 ML BOTTLE TP SCH ×2 (08:36→20:13)
[2018-08-10] MEDS: VITS A AND D/WHITE PET/LANOLIN 5 GM PACKET TP SCH ×2 (08:36→20:14)
[2018-08-10 19:37] VITALS: BP 103/68
[2018-08-10] MEDS: POLYETHYLENE GLYCOL 3350 17 GM POWD.PACK GT SCH (21:03)
[2018-08-11] MEDS: ALBUTEROL FS 2.5 MG/3 ML VIAL.NEB NEB SCH ×4 (01:30→20:19)
[2018-08-11] MEDS: ERYTHROMYCIN STEARATE 250 MG TABLET GT SCH ×3 (05:23→17:29)
--- NOTE | 2018-08-11 05:41 | NUR ---
RT NOTE TRACH TUBE IN PLACE, PATENT, AND SECURED. ALARMS ON AUDIBLE. VENT PLUGGED IN TO THE RED OUTLET. AMBU BAG AND BACK UP TRACH BY THE BEDSIDE. PATIENT SHOWS NO SIGNS OF ANY RESP DISTRESS. VITALS STABLE AT THIS TIME. Addendum: 08/11/18 at 0542 by EDNA CORTEZ RT Amended: Links added.
[2018-08-11 08:00] VITALS: BP 90/52
[2018-08-11 08:01] VITALS: BP 91/52
[2018-08-11] MEDS: Z GUARD REMEDY 4 OZ OINT TP SCH ×2 (09:29→21:20)
[2018-08-11] MEDS: VITS A AND D/WHITE PET/LANOLIN 5 GM PACKET TP SCH ×2 (09:29→21:20)
[2018-08-11] MEDS: LEVETIRACETAM SOL (5 ML) 100 MG/ML UDC GT SCH ×2 (09:29→21:20)
[2018-08-11] MEDS: POVIDONE-IODINE OINT 28.4 GM TUBE TP SCH ×2 (09:29→21:20)
[2018-08-11] MEDS: PROSOURCE / PROSTAT (PYXIS) 30 ML UDC JT SCH ×2 (09:29→17:29)
[2018-08-11] MEDS: POLYVINYL ALCOHOL 15 ML BOTTLE EACHEYE SCH ×4 (09:29→21:20)
[2018-08-11] MEDS: HYDROGEN PEROXIDE 480 ML BOTTLE TP SCH ×2 (09:29→21:20)
[2018-08-11] MEDS: COD LIVER OIL/ZINC OXIDE 120 GM TUBE TP SCH ×2 (09:29→17:29)
[2018-08-11] MEDS: RANITIDINE GT SCH ×2 (09:29→21:20)
[2018-08-11] MEDS: JEVITY 1.2 CAL 1,000 ML BOTTLE JT PRN (09:48)
[2018-08-11 19:33] VITALS: BP 114/69
--- NOTE | 2018-08-11 20:53 | NUR ---
RT NOTE PT RCVD TRACH'D ON MECHANICAL VENT WITH CHARTED SETTINGS. TX BRAULIO WELL. SX DONE. PT TRACH IS PATENT AND SECURE. VENT IS PLUGGED INTO RED OUTLET. ALARMS ARE ON AND AUDIBLE. AMBU BAG AT BEDSIDE. WILL CONTINUE TO MONITOR. Addendum: 08/11/18 at 2052 by STANFORD PETERS RT Amended: Links added.
[2018-08-11] MEDS: POLYETHYLENE GLYCOL 3350 17 GM POWD.PACK GT SCH (21:20)
[2018-08-12] MEDS: ERYTHROMYCIN STEARATE 250 MG TABLET GT SCH ×5 (00:04→23:36)
[2018-08-12] MEDS: ALBUTEROL FS 2.5 MG/3 ML VIAL.NEB NEB SCH ×4 (01:01→20:08)
[2018-08-12 07:59] VITALS: BP 121/68
[2018-08-12] MEDS: LEVETIRACETAM SOL (5 ML) 100 MG/ML UDC GT SCH ×2 (09:08→20:20)
[2018-08-12] MEDS: RANITIDINE GT SCH ×2 (09:08→20:20)
[2018-08-12] MEDS: PROSOURCE / PROSTAT (PYXIS) 30 ML UDC JT SCH ×2 (09:08→17:37)
[2018-08-12] MEDS: POLYVINYL ALCOHOL 15 ML BOTTLE EACHEYE SCH ×4 (09:08→20:20)
[2018-08-12] MEDS: Z GUARD REMEDY 4 OZ OINT TP SCH ×2 (09:09→20:21)
[2018-08-12] MEDS: COD LIVER OIL/ZINC OXIDE 120 GM TUBE TP SCH ×2 (09:09→17:37)
[2018-08-12] MEDS: VITS A AND D/WHITE PET/LANOLIN 5 GM PACKET TP SCH ×2 (09:09→20:21)
[2018-08-12] MEDS: POVIDONE-IODINE OINT 28.4 GM TUBE TP SCH ×2 (09:09→20:20)
[2018-08-12] MEDS: HYDROGEN PEROXIDE 480 ML BOTTLE TP SCH ×2 (09:09→20:20)
--- NOTE | 2018-08-12 12:25 | NUR ---
INNER CANNULA, TRACH TIE AND GAUZE CHANGED BY RT AND RN. NO ADVERSE REACTIONS, NO RESP DISTRESS NOTED.
[2018-08-12] MEDS: JEVITY 1.2 CAL 1,000 ML BOTTLE JT PRN (17:49)
[2018-08-12 20:44] VITALS: BP 96/57
[2018-08-12] MEDS: POLYETHYLENE GLYCOL 3350 17 GM POWD.PACK GT SCH (22:11)
[2018-08-13] MEDS: ALBUTEROL FS 2.5 MG/3 ML VIAL.NEB NEB SCH ×4 (01:53→20:20)
[2018-08-13] MEDS: ERYTHROMYCIN STEARATE 250 MG TABLET GT SCH ×4 (05:27→23:37)
[2018-08-13 07:38] VITALS: BP 100/58
[2018-08-13] MEDS: POLYVINYL ALCOHOL 15 ML BOTTLE EACHEYE SCH ×4 (08:37→20:14)
[2018-08-13] MEDS: HYDROGEN PEROXIDE 480 ML BOTTLE TP SCH ×2 (08:38→20:14)
[2018-08-13] MEDS: Z GUARD REMEDY 4 OZ OINT TP SCH ×2 (08:38→20:15)
[2018-08-13] MEDS: VITS A AND D/WHITE PET/LANOLIN 5 GM PACKET TP SCH ×2 (08:38→20:15)
[2018-08-13] MEDS: PROSOURCE / PROSTAT (PYXIS) 30 ML UDC JT SCH ×2 (08:38→16:07)
[2018-08-13] MEDS: RANITIDINE GT SCH ×2 (08:38→20:14)
[2018-08-13] MEDS: LEVETIRACETAM SOL (5 ML) 100 MG/ML UDC GT SCH ×2 (08:38→20:14)
[2018-08-13] MEDS: POVIDONE-IODINE OINT 28.4 GM TUBE TP SCH ×2 (09:00→20:14)
[2018-08-13] MEDS: COD LIVER OIL/ZINC OXIDE 120 GM TUBE TP SCH ×2 (09:00→16:08)
--- NOTE | 2018-08-13 09:18 | NUR ---
Seen and examined by Dr. Cleveland, hand twister. NNO given at this time.
--- NOTE | 2018-08-13 14:00 | NUR ---
Noted resident with perineal and bilateral groin area redness. New order received to apply Mycolog followed with zinc oxide, orders noted and carried out.
[2018-08-13] MEDS: NYSTATIN/TRIAMCIN 15 GM CREAM 15 GM TUBE TP SCH (20:15)
[2018-08-13] MEDS: ZINC OXIDE 30 GM TUBE TP SCH (20:16)
[2018-08-13 20:45] VITALS: BP 113/67
[2018-08-13] MEDS: POLYETHYLENE GLYCOL 3350 17 GM POWD.PACK GT SCH (22:05)
--- NOTE | 2018-08-13 23:57 | NUR ---
RT NOTE PT RCVD TRACH'D ON MECHANICAL VENT WITH CHARTED SETTINGS. TX BRAULIO WELL. SX DONE. PT TRACH IS PATENT AND SECURE. VENT IS PLUGGED INTO RED OUTLET. ALARMS ARE ON AND AUDIBLE. AMBU BAG AT BEDSIDE. WILL CONTINUE TO MONITOR. Addendum: 08/13/18 at 2357 by STANFORD PETERS RT Amended: Links added.
[2018-08-14] MEDS: ALBUTEROL FS 2.5 MG/3 ML VIAL.NEB NEB SCH ×4 (01:24→19:54)
[2018-08-14] MEDS: ERYTHROMYCIN STEARATE 250 MG TABLET GT SCH ×4 (05:05→23:23)
[2018-08-14] MEDS: JEVITY 1.2 CAL 1,000 ML BOTTLE JT PRN (05:15)
[2018-08-14 07:50] VITALS: BP 100/55
[2018-08-14] MEDS: POLYVINYL ALCOHOL 15 ML BOTTLE EACHEYE SCH ×4 (09:51→20:07)
[2018-08-14] MEDS: ZINC OXIDE 30 GM TUBE TP SCH ×2 (09:52→20:07)
[2018-08-14] MEDS: RANITIDINE GT SCH ×2 (09:52→20:07)
[2018-08-14] MEDS: NYSTATIN/TRIAMCIN 15 GM CREAM 15 GM TUBE TP SCH ×2 (09:52→20:07)
[2018-08-14] MEDS: HYDROGEN PEROXIDE 480 ML BOTTLE TP SCH ×2 (09:52→20:07)
[2018-08-14] MEDS: PROSOURCE / PROSTAT (PYXIS) 30 ML UDC JT SCH ×2 (09:52→17:00)
[2018-08-14] MEDS: VITS A AND D/WHITE PET/LANOLIN 5 GM PACKET TP SCH ×2 (09:52→20:07)
[2018-08-14] MEDS: COD LIVER OIL/ZINC OXIDE 120 GM TUBE TP SCH ×2 (09:52→17:00)
[2018-08-14] MEDS: POVIDONE-IODINE OINT 28.4 GM TUBE TP SCH ×2 (09:52→20:07)
[2018-08-14] MEDS: LEVETIRACETAM SOL (5 ML) 100 MG/ML UDC GT SCH ×2 (09:52→20:07)
[2018-08-14] MEDS: Z GUARD REMEDY 4 OZ OINT TP SCH ×2 (09:52→20:07)
[2018-08-14 20:31] VITALS: BP 106/62
--- NOTE | 2018-08-14 21:54 | NUR ---
RT NOTE PT RCVD TRACH'D ON MECHANICAL VENT WITH CHARTED SETTINGS. TX BRAULIO WELL. SX DONE. PT TRACH IS PATENT AND SECURE. VENT IS PLUGGED INTO RED OUTLET. ALARMS ARE ON AND AUDIBLE. AMBU BAG AT BEDSIDE. WILL CONTINUE TO MONITOR. Addendum: 08/14/18 at 2154 by STANFORD PETERS RT Amended: Links added.
[2018-08-14] MEDS: POLYETHYLENE GLYCOL 3350 17 GM POWD.PACK GT SCH (22:04)
[2018-08-15] MEDS: ALBUTEROL FS 2.5 MG/3 ML VIAL.NEB NEB SCH ×4 (00:52→20:33)
[2018-08-15] MEDS: ERYTHROMYCIN STEARATE 250 MG TABLET GT SCH ×3 (05:19→17:54)
[2018-08-15 08:00] VITALS: BP 99/67
[2018-08-15] MEDS: RANITIDINE GT SCH ×2 (09:06→21:39)
[2018-08-15] MEDS: PROSOURCE / PROSTAT (PYXIS) 30 ML UDC JT SCH ×2 (09:06→17:53)
[2018-08-15] MEDS: LEVETIRACETAM SOL (5 ML) 100 MG/ML UDC GT SCH ×2 (09:06→21:39)
[2018-08-15] MEDS: Z GUARD REMEDY 4 OZ OINT TP SCH ×2 (09:06→21:39)
[2018-08-15] MEDS: HYDROGEN PEROXIDE 480 ML BOTTLE TP SCH ×2 (09:06→21:39)
[2018-08-15] MEDS: COD LIVER OIL/ZINC OXIDE 120 GM TUBE TP SCH ×2 (09:06→17:53)
[2018-08-15] MEDS: POLYVINYL ALCOHOL 15 ML BOTTLE EACHEYE SCH ×4 (09:06→21:39)
[2018-08-15] MEDS: VITS A AND D/WHITE PET/LANOLIN 5 GM PACKET TP SCH ×2 (09:06→21:39)
[2018-08-15] MEDS: ZINC OXIDE 30 GM TUBE TP SCH ×2 (09:06→21:40)
[2018-08-15] MEDS: NYSTATIN/TRIAMCIN 15 GM CREAM 15 GM TUBE TP SCH ×2 (09:06→21:39)
[2018-08-15] MEDS: POVIDONE-IODINE OINT 28.4 GM TUBE TP SCH ×2 (09:06→21:39)
--- NOTE | 2018-08-15 19:30 | NUR ---
Seen and examined by Germaine Mike NP nno.
[2018-08-15 21:29] VITALS: BP 98/54
[2018-08-15] MEDS: POLYETHYLENE GLYCOL 3350 17 GM POWD.PACK GT SCH (21:40)
[2018-08-16] MEDS: ERYTHROMYCIN STEARATE 250 MG TABLET GT SCH ×5 (00:43→23:31)
[2018-08-16] MEDS: ALBUTEROL FS 2.5 MG/3 ML VIAL.NEB NEB SCH ×4 (02:12→20:20)
[2018-08-16] MEDS: JEVITY 1.2 CAL 1,000 ML BOTTLE JT PRN (07:04)
[2018-08-16 07:43] VITALS: BP 94/51
[2018-08-16] MEDS: PROSOURCE / PROSTAT (PYXIS) 30 ML UDC JT SCH ×2 (08:55→17:00)
[2018-08-16] MEDS: POVIDONE-IODINE OINT 28.4 GM TUBE TP SCH ×2 (08:55→21:37)
[2018-08-16] MEDS: POLYVINYL ALCOHOL 15 ML BOTTLE EACHEYE SCH ×4 (08:55→21:34)
[2018-08-16] MEDS: RANITIDINE GT SCH ×2 (08:55→21:36)
[2018-08-16] MEDS: LEVETIRACETAM SOL (5 ML) 100 MG/ML UDC GT SCH ×2 (08:55→21:36)
[2018-08-16] MEDS: NYSTATIN/TRIAMCIN 15 GM CREAM 15 GM TUBE TP SCH ×2 (08:56→21:37)
[2018-08-16] MEDS: ZINC OXIDE 30 GM TUBE TP SCH ×2 (08:56→21:37)
[2018-08-16] MEDS: VITS A AND D/WHITE PET/LANOLIN 5 GM PACKET TP SCH ×2 (08:56→21:37)
[2018-08-16] MEDS: COD LIVER OIL/ZINC OXIDE 120 GM TUBE TP SCH ×2 (08:56→17:00)
[2018-08-16] MEDS: Z GUARD REMEDY 4 OZ OINT TP SCH ×2 (08:56→21:37)
[2018-08-16] MEDS: HYDROGEN PEROXIDE 480 ML BOTTLE TP SCH ×2 (08:56→21:37)
--- NOTE | 2018-08-16 14:30 | NUR ---
INTERDISCIPLINARY PLAN OF CARE CONFERENCE was held today. Resident's father and aunt was brief of the meeting. Dr. Cleveland and the interdisciplinary team discussed the current plan of care in detail. Current orders as well as treatments and medications were reviewed. No significant change in condition. Pharmacist asked Dr. Cleveland the duration of EES due to business continuity analyst's recommendation that it is not given for a long period. According to Dr. Cleveland he will by pass business continuity analyst's recommendations, EES is being use for gastric motility. ST said that patient is not a candidate for oral gratification, he is not able to swallow his saliva and stays at the back of his throat.
--- NOTE | 2018-08-16 17:17 | NUR ---
Referred to MULTIMEDIA PROGRAMMER Mi Kerr GI to assess patient's GJT and consider changing to a regular GT for intermodal owner operator truck driver use. Current feeding tube clogs easily and gets dislodged when patient rubs his arm against his stomach. She said she will see patient tomorrow. Endorsed.
[2018-08-16 19:55] VITALS: BP 97/65
--- NOTE | 2018-08-16 20:20 | NUR ---
RECEIVED TRACH PT ON MECH VENT WITH NOTED SETTINGS. PT IS ALERT AND AWAKE. TRACH IS PATENT AND SECURED. DONOR RELATIONS COORDINATOR DONE. Q6 BREATHING TX GIVEN WITH NO ADVERSE REACTION NOTED. SX DONE PRN. VENT PLUGGED INTO RED OUTLET. ALARMS ON AND AUDIBLE. AMBU BAG @ BEDSIDE. NO RESP DISTRESS AT THIS TIME. WILL CONT TO MONITOR PT.
[2018-08-16] MEDS: POLYETHYLENE GLYCOL 3350 17 GM POWD.PACK GT SCH (21:37)
[2018-08-17] MEDS: ALBUTEROL FS 2.5 MG/3 ML VIAL.NEB NEB SCH ×4 (01:19→19:30)
[2018-08-17] MEDS: ERYTHROMYCIN STEARATE 250 MG TABLET GT SCH ×4 (05:40→23:46)
[2018-08-17 08:08] VITALS: BP 114/69
[2018-08-17] MEDS: LEVETIRACETAM SOL (5 ML) 100 MG/ML UDC GT SCH ×2 (08:20→21:57)
[2018-08-17] MEDS: RANITIDINE GT SCH ×2 (08:20→21:57)
[2018-08-17] MEDS: POLYVINYL ALCOHOL 15 ML BOTTLE EACHEYE SCH ×4 (08:20→21:56)
[2018-08-17] MEDS: NYSTATIN/TRIAMCIN 15 GM CREAM 15 GM TUBE TP SCH ×2 (08:20→21:57)
[2018-08-17] MEDS: HYDROGEN PEROXIDE 480 ML BOTTLE TP SCH ×3 (08:20→21:57)
[2018-08-17] MEDS: POVIDONE-IODINE OINT 28.4 GM TUBE TP SCH ×2 (08:20→21:57)
[2018-08-17] MEDS: ZINC OXIDE 30 GM TUBE TP SCH ×2 (08:20→21:57)
[2018-08-17] MEDS: Z GUARD REMEDY 4 OZ OINT TP SCH ×2 (08:20→21:57)
[2018-08-17] MEDS: COD LIVER OIL/ZINC OXIDE 120 GM TUBE TP SCH ×2 (08:20→17:07)
[2018-08-17] MEDS: PROSOURCE / PROSTAT (PYXIS) 30 ML UDC JT SCH ×2 (08:20→17:07)
[2018-08-17] MEDS: VITS A AND D/WHITE PET/LANOLIN 5 GM PACKET TP SCH ×2 (08:20→21:57)
[2018-08-17] MEDS: POLYETHYLENE GLYCOL 3350 17 GM POWD.PACK GT SCH (21:57)
[2018-08-18] MEDS: ALBUTEROL FS 2.5 MG/3 ML VIAL.NEB NEB SCH ×4 (01:25→19:35)
[2018-08-18] MEDS: JEVITY 1.2 CAL 1,000 ML BOTTLE JT PRN (02:18)
--- NOTE | 2018-08-18 03:25 | NUR ---
RT NOTES TRACH TUBE IN PLACE, PATENT, AND SECURED WITH TRACH TIE. ALARMS ON AND AUDIBLE. VENT PLUGGED IN TO RED OUTLET. AMBU BAG AND BACK UP TRACH BY THE BEDSIDE. TRACH CARE PERFORMED. STOMA CLEANED AND REPLACED INNER CANNULA. SO SIGNS OF ANY SOB. PT STABLE. Addendum: 08/18/18 at 0325 by EDNA CORTEZ RT Amended: Links added.
[2018-08-18] MEDS: ERYTHROMYCIN STEARATE 250 MG TABLET GT SCH ×3 (05:37→18:38)
[2018-08-18 07:50] VITALS: BP 112/70
[2018-08-18] MEDS: HYDROGEN PEROXIDE 480 ML BOTTLE TP SCH ×2 (09:00→21:29)
[2018-08-18] MEDS: ZINC OXIDE 30 GM TUBE TP SCH ×2 (09:00→21:29)
[2018-08-18] MEDS: POVIDONE-IODINE OINT 28.4 GM TUBE TP SCH ×2 (09:00→21:29)
[2018-08-18] MEDS: RANITIDINE GT SCH ×2 (09:00→21:28)
[2018-08-18] MEDS: COD LIVER OIL/ZINC OXIDE 120 GM TUBE TP SCH ×2 (09:00→17:00)
[2018-08-18] MEDS: LEVETIRACETAM SOL (5 ML) 100 MG/ML UDC GT SCH ×2 (09:00→21:28)
[2018-08-18] MEDS: Z GUARD REMEDY 4 OZ OINT TP SCH ×2 (09:00→21:29)
[2018-08-18] MEDS: PROSOURCE / PROSTAT (PYXIS) 30 ML UDC JT SCH ×2 (09:00→17:00)
[2018-08-18] MEDS: POLYVINYL ALCOHOL 15 ML BOTTLE EACHEYE SCH ×4 (09:00→21:27)
[2018-08-18] MEDS: NYSTATIN/TRIAMCIN 15 GM CREAM 15 GM TUBE TP SCH ×2 (09:00→21:29)
[2018-08-18] MEDS: VITS A AND D/WHITE PET/LANOLIN 5 GM PACKET TP SCH ×2 (09:00→21:29)
--- NOTE | 2018-08-18 17:30 | NUR ---
Seen and examined by DISTILLERY LABORER Mi Kerr, assessed GT area. Informed DISTILLERY LABORER that patient's GJ at times gets clogged, connector gets loose then leaks. She said that she will refer this to Dr. Arreola in the morning and this can be done at bedside should he decide to change it tomorrow. Endorsed.
[2018-08-18 20:05] VITALS: BP 118/69
[2018-08-18] MEDS: POLYETHYLENE GLYCOL 3350 17 GM POWD.PACK GT SCH (21:29)
[2018-08-19] MEDS: ERYTHROMYCIN STEARATE 250 MG TABLET GT SCH ×5 (00:21→23:02)
[2018-08-19] MEDS: ALBUTEROL FS 2.5 MG/3 ML VIAL.NEB NEB SCH ×4 (01:31→19:25)
[2018-08-19] MEDS: JEVITY 1.2 CAL 1,000 ML BOTTLE JT PRN (03:40)
[2018-08-19 08:06] VITALS: BP 126/66
[2018-08-19] MEDS: POLYVINYL ALCOHOL 15 ML BOTTLE EACHEYE SCH ×4 (08:25→21:00)
[2018-08-19] MEDS: RANITIDINE GT SCH ×2 (08:26→21:00)
[2018-08-19] MEDS: LEVETIRACETAM SOL (5 ML) 100 MG/ML UDC GT SCH ×2 (08:26→21:00)
[2018-08-19] MEDS: PROSOURCE / PROSTAT (PYXIS) 30 ML UDC JT SCH ×2 (08:26→16:52)
[2018-08-19] MEDS: Z GUARD REMEDY 4 OZ OINT TP SCH ×2 (09:00→21:00)
[2018-08-19] MEDS: POVIDONE-IODINE OINT 28.4 GM TUBE TP SCH ×2 (09:00→21:00)
[2018-08-19] MEDS: NYSTATIN/TRIAMCIN 15 GM CREAM 15 GM TUBE TP SCH ×2 (09:00→21:00)
[2018-08-19] MEDS: VITS A AND D/WHITE PET/LANOLIN 5 GM PACKET TP SCH ×2 (09:00→21:00)
[2018-08-19] MEDS: COD LIVER OIL/ZINC OXIDE 120 GM TUBE TP SCH ×2 (09:00→16:52)
[2018-08-19] MEDS: HYDROGEN PEROXIDE 480 ML BOTTLE TP SCH ×2 (09:00→21:00)
[2018-08-19] MEDS: ZINC OXIDE 30 GM TUBE TP SCH ×2 (09:00→21:00)
[2018-08-19] MEDS ORDERED: BENZOCAINE DENTAL GEL 7 GM TUBE MM PRN (13:00)
--- NOTE | 2018-08-19 13:55 | NUR ---
Pt complained of pain on right bottom tooth (wisdom tooth). XAVI Mike ordered Orajel to be applied to affected tooth QIEllie WILLSON. Pt's family brought Orajel for pt. Addendum: 08/19/18 at 1359 by AMA EL RN XAVI Mike also ordered dental consult.
--- NOTE | 2018-08-19 13:58 | NUR ---
Called Dr Augustine for dental consult.
--- NOTE | 2018-08-19 17:34 | NUR ---
Spoke with ELECTRONIC MASKING SYSTEM OPERATOR Mi Kerr regarding pt's GJ tube. She said there is no plan to replace it at this time. GJ tube patent and functioning well.
[2018-08-19 19:51] VITALS: BP 113/63
[2018-08-19] MEDS: POLYETHYLENE GLYCOL 3350 17 GM POWD.PACK GT SCH (22:44)
[2018-08-20] MEDS: ALBUTEROL FS 2.5 MG/3 ML VIAL.NEB NEB SCH ×4 (01:40→20:08)
[2018-08-20] MEDS: ERYTHROMYCIN STEARATE 250 MG TABLET GT SCH ×3 (05:43→18:45)
[2018-08-20 08:33] VITALS: BP 131/75
[2018-08-20] MEDS: COD LIVER OIL/ZINC OXIDE 120 GM TUBE TP SCH ×2 (08:55→17:00)
[2018-08-20] MEDS: POLYVINYL ALCOHOL 15 ML BOTTLE EACHEYE SCH ×4 (08:55→20:58)
[2018-08-20] MEDS: RANITIDINE GT SCH ×2 (08:55→20:59)
[2018-08-20] MEDS: PROSOURCE / PROSTAT (PYXIS) 30 ML UDC JT SCH ×2 (08:55→17:00)
[2018-08-20] MEDS: LEVETIRACETAM SOL (5 ML) 100 MG/ML UDC GT SCH ×2 (08:55→21:00)
[2018-08-20] MEDS: POVIDONE-IODINE OINT 28.4 GM TUBE TP SCH (08:55)
[2018-08-20] MEDS: HYDROGEN PEROXIDE 480 ML BOTTLE TP SCH ×2 (09:00→20:09)
[2018-08-20] MEDS: ZINC OXIDE 30 GM TUBE TP SCH ×2 (09:24→21:00)
[2018-08-20] MEDS: NYSTATIN/TRIAMCIN 15 GM CREAM 15 GM TUBE TP SCH ×2 (09:24→21:00)
[2018-08-20] MEDS: VITS A AND D/WHITE PET/LANOLIN 5 GM PACKET TP SCH ×2 (09:24→21:00)
[2018-08-20] MEDS: Z GUARD REMEDY 4 OZ OINT TP SCH ×2 (09:24→21:00)
--- NOTE | 2018-08-20 18:37 | NUR ---
Seen by Dr Cleveland today. He ordered to place pt on SIMV 4 PSV 20 PEEP +5 tomorrow, ABG 1 hour post vent change. Notified pt's aunt.
[2018-08-20 20:53] VITALS: BP 95/55
[2018-08-20] MEDS: POLYETHYLENE GLYCOL 3350 17 GM POWD.PACK GT SCH (21:01)
[2018-08-21] MEDS: ERYTHROMYCIN STEARATE 250 MG TABLET GT SCH ×4 (00:29→17:59)
[2018-08-21] MEDS: ALBUTEROL FS 2.5 MG/3 ML VIAL.NEB NEB SCH ×4 (01:30→20:16)
[2018-08-21] MEDS: JEVITY 1.2 CAL 1,000 ML BOTTLE JT PRN (04:12)
--- NOTE | 2018-08-21 07:37 | NUR ---
Pt received on AC mode and placed on SIMV mode per MD order. Addendum: 08/21/18 at 1550 by ANGELO SHRESTHA Amended: Links added.
[2018-08-21 07:57] VITALS: BP 115/73
[2018-08-21] MEDS: PROSOURCE / PROSTAT (PYXIS) 30 ML UDC JT SCH ×2 (09:12→17:59)
[2018-08-21] MEDS: RANITIDINE GT SCH ×2 (09:12→20:06)
[2018-08-21] MEDS: LEVETIRACETAM SOL (5 ML) 100 MG/ML UDC GT SCH ×2 (09:12→20:06)
[2018-08-21] MEDS: POLYVINYL ALCOHOL 15 ML BOTTLE EACHEYE SCH ×4 (09:12→20:05)
[2018-08-21] MEDS: HYDROGEN PEROXIDE 480 ML BOTTLE TP SCH ×2 (09:13→20:06)
[2018-08-21] MEDS: ZINC OXIDE 30 GM TUBE TP SCH ×2 (09:19→20:07)
[2018-08-21] MEDS: VITS A AND D/WHITE PET/LANOLIN 5 GM PACKET TP SCH ×2 (09:19→20:07)
[2018-08-21] MEDS: COD LIVER OIL/ZINC OXIDE 120 GM TUBE TP SCH ×2 (09:20→17:59)
[2018-08-21] MEDS: Z GUARD REMEDY 4 OZ OINT TP SCH ×2 (09:20→20:07)
[2018-08-21] MEDS: NYSTATIN/TRIAMCIN 15 GM CREAM 15 GM TUBE TP SCH ×2 (09:20→20:06)
[2018-08-21 09:48] LABS: ABG OXYGEN SATURATION 96.8 % (92.0-98.5); ABG PCO2 61.1 mmHg (35.0-45.0); ABG PH 7.333 (7.350-7.450); ABG PO2 99.6 mmHg (75.0-100.0); AaDO2 115.3 mmHg; COHb 0.2 % (0.5-1.5); MetHb 0.6 % (0.0-1.5); SITE, ABG Left Radial; VENT MODE, BG SIMV 4 450 PS20 40% +0
--- NOTE | 2018-08-21 10:30 | NUR ---
ABG result relayed to Dr. Cleveland, with new order to put him back on his prior ventilator setting. Orders noted and carried out. RT informed.
--- NOTE | 2018-08-21 15:48 | NUR ---
G relayed to Dr. Cleveland. Pt placed back onto previous settings per Dr. Cleveland. Addendum: 08/21/18 at 1549 by ANGELO RIZVI RT Amended: Links added.
[2018-08-21 20:02] VITALS: BP 108/66
--- NOTE | 2018-08-21 20:50 | NUR ---
RT NOTE PT REC'D TRACH'D ON MECHANICAL VENT WITH CHARTED SETTINGS. TX TOLERATED WELL. SX DONE. PT TRACH IS PATENT AND SECURE. VENT IS PLUGGED INTO RED OUTLET. ALARMS ARE ON AND AUDIBLE. AMBU BAG AT BEDSIDE. NO SOB NOTED AT THIS TIME. WILL CONTINUE TO MONITOR. Addendum: 08/21/18 at 2050 by KYM DUEÑAS RT Amended: Links added.
[2018-08-21] MEDS: POLYETHYLENE GLYCOL 3350 17 GM POWD.PACK GT SCH (21:56)
[2018-08-22] MEDS: ERYTHROMYCIN STEARATE 250 MG TABLET GT SCH ×4 (00:06→18:25)
[2018-08-22] MEDS: ALBUTEROL FS 2.5 MG/3 ML VIAL.NEB NEB SCH ×4 (01:28→19:49)
[2018-08-22] MEDS: JEVITY 1.2 CAL 1,000 ML BOTTLE JT PRN (06:14)
[2018-08-22 07:48] VITALS: BP 115/41
[2018-08-22] MEDS: POLYVINYL ALCOHOL 15 ML BOTTLE EACHEYE SCH ×4 (08:00→21:00)
[2018-08-22] MEDS: RANITIDINE GT SCH ×2 (08:00→21:00)
[2018-08-22] MEDS: LEVETIRACETAM SOL (5 ML) 100 MG/ML UDC GT SCH ×2 (08:00→21:00)
[2018-08-22] MEDS: PROSOURCE / PROSTAT (PYXIS) 30 ML UDC JT SCH ×2 (08:00→17:00)
[2018-08-22] MEDS: ZINC OXIDE 30 GM TUBE TP SCH ×2 (09:00→21:00)
[2018-08-22] MEDS: NYSTATIN/TRIAMCIN 15 GM CREAM 15 GM TUBE TP SCH ×2 (09:00→21:00)
[2018-08-22] MEDS: HYDROGEN PEROXIDE 480 ML BOTTLE TP SCH ×2 (09:00→22:10)
[2018-08-22] MEDS: VITS A AND D/WHITE PET/LANOLIN 5 GM PACKET TP SCH ×2 (09:00→21:00)
[2018-08-22] MEDS: Z GUARD REMEDY 4 OZ OINT TP SCH ×2 (09:00→21:00)
[2018-08-22] MEDS: COD LIVER OIL/ZINC OXIDE 120 GM TUBE TP SCH ×2 (09:00→17:00)
[2018-08-22 20:26] VITALS: BP 110/66
--- NOTE | 2018-08-22 21:32 | NUR ---
RT NOTE PT RCVD TRACH'D ON MECHANICAL VENT WITH CHARTED SETTINGS. TX BRAULIO WELL. SX DONE. PT TRACH IS PATENT AND SECURE. VENT IS PLUGGED INTO RED OUTLET. ALARMS ARE ON AND AUDIBLE. AMBU BAG AT BEDSIDE. WILL CONTINUE TO MONITOR. Addendum: 08/22/18 at 2132 by STANFORD PETERS RT Amended: Links added.
[2018-08-22] MEDS: POLYETHYLENE GLYCOL 3350 17 GM POWD.PACK GT SCH (22:00)
[2018-08-23] MEDS: ALBUTEROL FS 2.5 MG/3 ML VIAL.NEB NEB SCH ×4 (00:46→20:20)
[2018-08-23] MEDS: JEVITY 1.2 CAL 1,000 ML BOTTLE JT PRN (01:41)
[2018-08-23] MEDS: ERYTHROMYCIN STEARATE 250 MG TABLET GT SCH ×5 (06:05→23:22)
[2018-08-23 08:00] VITALS: BP 119/74
[2018-08-23] MEDS: POLYVINYL ALCOHOL 15 ML BOTTLE EACHEYE SCH ×4 (08:33→20:28)
[2018-08-23] MEDS: HYDROGEN PEROXIDE 480 ML BOTTLE TP SCH ×2 (08:34→20:29)
[2018-08-23] MEDS: RANITIDINE GT SCH ×2 (08:34→20:29)
[2018-08-23] MEDS: Z GUARD REMEDY 4 OZ OINT TP SCH ×2 (08:34→20:29)
[2018-08-23] MEDS: NYSTATIN/TRIAMCIN 15 GM CREAM 15 GM TUBE TP SCH ×2 (08:34→20:29)
[2018-08-23] MEDS: LEVETIRACETAM SOL (5 ML) 100 MG/ML UDC GT SCH ×2 (08:34→20:29)
[2018-08-23] MEDS: COD LIVER OIL/ZINC OXIDE 120 GM TUBE TP SCH ×2 (08:34→17:25)
[2018-08-23] MEDS: PROSOURCE / PROSTAT (PYXIS) 30 ML UDC JT SCH ×2 (08:34→17:25)
[2018-08-23] MEDS: ZINC OXIDE 30 GM TUBE TP SCH ×2 (08:35→20:29)
[2018-08-23] MEDS: VITS A AND D/WHITE PET/LANOLIN 5 GM PACKET TP SCH ×2 (08:35→20:29)
[2018-08-23 20:14] VITALS: BP 108/66
--- NOTE | 2018-08-23 20:20 | NUR ---
RECEIVED TRACH PT ON MECH VENT WITH NOTED SETTINGS. PT IS ALERT AND AWAKE. TRACH IS PATENT AND SECURED. RAGMAN DONE. Q6 BREATHING TX GIVEN WITH NO ADVERSE REACTION NOTED. SX DONE PRN. VENT PLUGGED INTO RED OUTLET. ALARMS ON AND AUDIBLE. AMBU BAG @ BEDSIDE. NO RESP DISTRESS AT THIS TIME. WILL CONT TO MONITOR PT.
[2018-08-23] MEDS: POLYETHYLENE GLYCOL 3350 17 GM POWD.PACK GT SCH (21:07)
[2018-08-24] MEDS: ALBUTEROL FS 2.5 MG/3 ML VIAL.NEB NEB SCH ×4 (01:39→19:40)
[2018-08-24] MEDS: JEVITY 1.2 CAL 1,000 ML BOTTLE JT PRN (05:39)
[2018-08-24] MEDS: ERYTHROMYCIN STEARATE 250 MG TABLET GT SCH ×3 (05:39→17:24)
[2018-08-24 07:48] VITALS: BP 107/63
[2018-08-24] MEDS: HYDROGEN PEROXIDE 480 ML BOTTLE TP SCH ×2 (09:00→20:33)
[2018-08-24] MEDS: VITS A AND D/WHITE PET/LANOLIN 5 GM PACKET TP SCH ×2 (09:00→20:33)
[2018-08-24] MEDS: NYSTATIN/TRIAMCIN 15 GM CREAM 15 GM TUBE TP SCH ×2 (09:00→20:33)
[2018-08-24] MEDS: Z GUARD REMEDY 4 OZ OINT TP SCH ×2 (09:00→20:33)
[2018-08-24] MEDS: ZINC OXIDE 30 GM TUBE TP SCH ×2 (09:00→20:33)
[2018-08-24] MEDS: POLYVINYL ALCOHOL 15 ML BOTTLE EACHEYE SCH ×4 (09:31→20:33)
[2018-08-24] MEDS: LEVETIRACETAM SOL (5 ML) 100 MG/ML UDC GT SCH ×2 (09:32→20:33)
[2018-08-24] MEDS: RANITIDINE GT SCH ×2 (09:32→20:33)
[2018-08-24] MEDS: PROSOURCE / PROSTAT (PYXIS) 30 ML UDC JT SCH ×2 (09:33→17:24)
[2018-08-24] MEDS: COD LIVER OIL/ZINC OXIDE 120 GM TUBE TP SCH ×2 (09:40→17:24)
[2018-08-24 19:42] VITALS: BP 103/57
[2018-08-24] MEDS: POLYETHYLENE GLYCOL 3350 17 GM POWD.PACK GT SCH (21:00)
[2018-08-25] MEDS: ERYTHROMYCIN STEARATE 250 MG TABLET GT SCH ×4 (00:05→17:10)
[2018-08-25] MEDS: ALBUTEROL FS 2.5 MG/3 ML VIAL.NEB NEB SCH ×4 (01:26→19:59)
[2018-08-25] MEDS: JEVITY 1.2 CAL 1,000 ML BOTTLE JT PRN (05:15)
[2018-08-25 07:37] VITALS: BP 103/57
[2018-08-25] MEDS: PROSOURCE / PROSTAT (PYXIS) 30 ML UDC JT SCH ×2 (09:04→17:10)
[2018-08-25] MEDS: LEVETIRACETAM SOL (5 ML) 100 MG/ML UDC GT SCH ×2 (09:04→21:52)
[2018-08-25] MEDS: COD LIVER OIL/ZINC OXIDE 120 GM TUBE TP SCH ×2 (09:04→17:10)
[2018-08-25] MEDS: POLYVINYL ALCOHOL 15 ML BOTTLE EACHEYE SCH ×4 (09:04→21:54)
[2018-08-25] MEDS: RANITIDINE GT SCH ×2 (09:04→21:54)
[2018-08-25] MEDS: Z GUARD REMEDY 4 OZ OINT TP SCH ×2 (09:05→21:52)
[2018-08-25] MEDS: NYSTATIN/TRIAMCIN 15 GM CREAM 15 GM TUBE TP SCH ×2 (09:05→22:15)
[2018-08-25] MEDS: ZINC OXIDE 30 GM TUBE TP SCH ×2 (09:05→22:15)
[2018-08-25] MEDS: VITS A AND D/WHITE PET/LANOLIN 5 GM PACKET TP SCH ×2 (09:05→22:15)
--- NOTE | 2018-08-25 19:59 | NUR ---
RT PT RECEIVED TRACHED ON [facility] VENT ON CHARTED SETTINGS. NO RESP DISTRESS NOTED. AIRWAY PATENT AND SECURED. PT SUCTIONED. MTL DONE. HHN TX GIVEN. ALARMS ARE SET AND AUDIBLE. AMBUBAG AND BACK UP TRACH PRESENT. VENT CONNECTED TO RED OUTLET. WILL CONT TO MONITOR. Addendum: 08/25/18 at 7568 by BERTA SOSA RT Amended: Links added.
[2018-08-25] MEDS: HYDROGEN PEROXIDE 480 ML BOTTLE TP SCH (20:48)
[2018-08-25 20:51] VITALS: BP 99/64
[2018-08-25] MEDS: POLYETHYLENE GLYCOL 3350 17 GM POWD.PACK GT SCH (21:53)
[2018-08-26] MEDS: ALBUTEROL FS 2.5 MG/3 ML VIAL.NEB NEB SCH ×4 (01:39→19:33)
[2018-08-26] MEDS: JEVITY 1.2 CAL 1,000 ML BOTTLE JT PRN (03:08)
[2018-08-26] MEDS: ERYTHROMYCIN STEARATE 250 MG TABLET GT SCH ×5 (06:00→23:39)
[2018-08-26 07:40] VITALS: BP 105/62
[2018-08-26] MEDS: COD LIVER OIL/ZINC OXIDE 120 GM TUBE TP SCH ×2 (08:58→17:04)
[2018-08-26] MEDS: LEVETIRACETAM SOL (5 ML) 100 MG/ML UDC GT SCH ×2 (08:58→21:37)
[2018-08-26] MEDS: RANITIDINE GT SCH ×2 (08:58→21:37)
[2018-08-26] MEDS: PROSOURCE / PROSTAT (PYXIS) 30 ML UDC JT SCH ×2 (08:58→17:04)
[2018-08-26] MEDS: VITS A AND D/WHITE PET/LANOLIN 5 GM PACKET TP SCH ×2 (08:59→21:37)
[2018-08-26] MEDS: ZINC OXIDE 30 GM TUBE TP SCH ×2 (08:59→21:37)
[2018-08-26] MEDS: Z GUARD REMEDY 4 OZ OINT TP SCH ×2 (08:59→21:37)
[2018-08-26] MEDS: POLYVINYL ALCOHOL 15 ML BOTTLE EACHEYE SCH ×4 (08:59→21:37)
[2018-08-26] MEDS: NYSTATIN/TRIAMCIN 15 GM CREAM 15 GM TUBE TP SCH ×2 (08:59→21:37)
[2018-08-26] MEDS: HYDROGEN PEROXIDE 480 ML BOTTLE TP SCH ×2 (09:00→21:07)
[2018-08-26 20:40] VITALS: BP 111/52
[2018-08-26] MEDS: POLYETHYLENE GLYCOL 3350 17 GM POWD.PACK GT SCH (21:37)
[2018-08-27] MEDS: ALBUTEROL FS 2.5 MG/3 ML VIAL.NEB NEB SCH ×4 (01:44→19:59)
[2018-08-27] MEDS: ERYTHROMYCIN STEARATE 250 MG TABLET GT SCH ×3 (06:03→17:53)
[2018-08-27 07:59] VITALS: BP 116/72
[2018-08-27] MEDS: VITS A AND D/WHITE PET/LANOLIN 5 GM PACKET TP SCH ×2 (09:00→20:30)
[2018-08-27] MEDS: ZINC OXIDE 30 GM TUBE TP SCH ×2 (09:00→20:31)
[2018-08-27] MEDS: Z GUARD REMEDY 4 OZ OINT TP SCH ×2 (09:00→20:30)
[2018-08-27] MEDS: NYSTATIN/TRIAMCIN 15 GM CREAM 15 GM TUBE TP SCH ×2 (09:00→20:30)
[2018-08-27] MEDS: LEVETIRACETAM SOL (5 ML) 100 MG/ML UDC GT SCH ×2 (09:08→20:30)
[2018-08-27] MEDS: POLYVINYL ALCOHOL 15 ML BOTTLE EACHEYE SCH ×4 (09:08→20:29)
[2018-08-27] MEDS: RANITIDINE GT SCH ×2 (09:08→20:30)
[2018-08-27] MEDS: PROSOURCE / PROSTAT (PYXIS) 30 ML UDC JT SCH ×2 (09:08→16:50)
[2018-08-27] MEDS: HYDROGEN PEROXIDE 480 ML BOTTLE TP SCH ×2 (09:08→20:30)
[2018-08-27] MEDS: COD LIVER OIL/ZINC OXIDE 120 GM TUBE TP SCH ×2 (09:08→16:51)
--- NOTE | 2018-08-27 16:04 | NUR ---
Called Dr Kerr and informed him that pt has been complaining of toothache on the right bottom tooth (wisdom tooth). Dr Kerr came and examined pt's teeth. He said pt has a build up of saliva on his affected tooth and gums. He will come back in about 2 weeks to clean pt's teeth. Pt has copious amounts of secretions that build up in his mouth and he is frequently suctioned. Oral hygiene provided to pt.
--- NOTE | 2018-08-27 20:00 | NUR ---
RECEIVED TRACH PT ON MECH VENT WITH NOTED SETTINGS. PT IS ALERT AND AWAKE. TRACH IS PATENT AND SECURED. PARTICLEBOARD FACTORY WORKER DONE. Q6 BREATHING TX GIVEN WITH NO ADVERSE REACTION NOTED. SX DONE PRN. VENT PLUGGED INTO RED OUTLET. ALARMS ON AND AUDIBLE. AMBU BAG @ BEDSIDE. NO RESP DISTRESS AT THIS TIME. WILL CONT TO MONITOR PT.
[2018-08-27 20:17] VITALS: BP 95/57
[2018-08-27] MEDS: POLYETHYLENE GLYCOL 3350 17 GM POWD.PACK GT SCH (21:17)
[2018-08-28] MEDS: ERYTHROMYCIN STEARATE 250 MG TABLET GT SCH ×5 (00:05→23:44)
[2018-08-28] MEDS: ALBUTEROL FS 2.5 MG/3 ML VIAL.NEB NEB SCH ×4 (01:20→20:04)
[2018-08-28] MEDS: JEVITY 1.2 CAL 1,000 ML BOTTLE JT PRN (06:15)
[2018-08-28 07:41] VITALS: BP 113/73
--- NOTE | 2018-08-28 08:49 | NUR ---
RT PATIENT WAS RECEIVED ON VENT SUPPORT WITH THE SAME VENT SETTINGS. PATIENT STABLE AT THIS TIME ,TRACH TUBE PATENT AND SECURED. WILL CONTINUE TO MONITOR PATIENT. Addendum: 08/28/18 at 0849 by HARLEY MUNIZ RT Amended: Links added.
[2018-08-28] MEDS: ZINC OXIDE 30 GM TUBE TP SCH ×2 (09:00→21:53)
[2018-08-28] MEDS: COD LIVER OIL/ZINC OXIDE 120 GM TUBE TP SCH ×2 (09:00→17:00)
[2018-08-28] MEDS: POLYVINYL ALCOHOL 15 ML BOTTLE EACHEYE SCH ×4 (09:00→21:52)
[2018-08-28] MEDS: PROSOURCE / PROSTAT (PYXIS) 30 ML UDC JT SCH ×2 (09:00→17:00)
[2018-08-28] MEDS: VITS A AND D/WHITE PET/LANOLIN 5 GM PACKET TP SCH ×2 (09:00→21:53)
[2018-08-28] MEDS: NYSTATIN/TRIAMCIN 15 GM CREAM 15 GM TUBE TP SCH ×2 (09:00→21:52)
[2018-08-28] MEDS: LEVETIRACETAM SOL (5 ML) 100 MG/ML UDC GT SCH ×2 (09:00→21:52)
[2018-08-28] MEDS: RANITIDINE GT SCH ×2 (09:00→21:52)
[2018-08-28] MEDS: Z GUARD REMEDY 4 OZ OINT TP SCH ×2 (09:00→21:52)
[2018-08-28] MEDS: HYDROGEN PEROXIDE 480 ML BOTTLE TP SCH ×2 (09:23→22:18)
[2018-08-28 20:17] VITALS: BP 136/86
--- NOTE | 2018-08-28 20:44 | NUR ---
RT NOTE PT RCVD TRACH'D ON MECHANICAL VENT WITH CHARTED SETTINGS. TX BRAULIO WELL. SX DONE. PT TRACH IS PATENT AND SECURE. VENT IS PLUGGED INTO RED OUTLET. ALARMS ARE ON AND AUDIBLE. AMBU BAG AT BEDSIDE. WILL CONTINUE TO MONITOR. Addendum: 08/28/18 at 2043 by STANFORD PETERS RT Amended: Links added.
[2018-08-28] MEDS: POLYETHYLENE GLYCOL 3350 17 GM POWD.PACK GT SCH (21:53)
[2018-08-29] MEDS: ALBUTEROL FS 2.5 MG/3 ML VIAL.NEB NEB SCH ×4 (01:03→19:59)
[2018-08-29] MEDS: JEVITY 1.2 CAL 1,000 ML BOTTLE JT PRN (05:51)
[2018-08-29] MEDS: ERYTHROMYCIN STEARATE 250 MG TABLET GT SCH ×4 (05:51→23:00)
[2018-08-29 07:35] VITALS: BP 109/79
[2018-08-29] MEDS: HYDROGEN PEROXIDE 480 ML BOTTLE TP SCH ×2 (09:44→21:30)
[2018-08-29] MEDS: LEVETIRACETAM SOL (5 ML) 100 MG/ML UDC GT SCH ×2 (09:57→21:02)
[2018-08-29] MEDS: PROSOURCE / PROSTAT (PYXIS) 30 ML UDC JT SCH ×2 (09:57→17:58)
[2018-08-29] MEDS: RANITIDINE GT SCH ×2 (09:57→21:02)
[2018-08-29] MEDS: NYSTATIN/TRIAMCIN 15 GM CREAM 15 GM TUBE TP SCH ×2 (09:58→21:04)
[2018-08-29] MEDS: ZINC OXIDE 30 GM TUBE TP SCH ×2 (09:58→21:05)
[2018-08-29] MEDS: COD LIVER OIL/ZINC OXIDE 120 GM TUBE TP SCH ×2 (09:58→17:58)
[2018-08-29] MEDS: VITS A AND D/WHITE PET/LANOLIN 5 GM PACKET TP SCH ×2 (09:58→21:04)
[2018-08-29] MEDS: Z GUARD REMEDY 4 OZ OINT TP SCH ×2 (09:58→21:04)
[2018-08-29] MEDS: POLYVINYL ALCOHOL 15 ML BOTTLE EACHEYE SCH ×4 (09:58→21:02)
[2018-08-29] MEDS ORDERED: ALBUTEROL FS 2.5 MG/3 ML VIAL.NEB ONE (11:56)
[2018-08-29] MEDS ORDERED: IPRATROPIUM NEB FS 0.5 MG/2.5 ML AMPUL.NEB ONE (11:56)
[2018-08-29 20:14] VITALS: BP 101/51
[2018-08-29] MEDS: POLYETHYLENE GLYCOL 3350 17 GM POWD.PACK GT SCH (21:05)
[2018-08-30] MEDS: ALBUTEROL FS 2.5 MG/3 ML VIAL.NEB NEB SCH ×4 (02:19→19:56)
[2018-08-30] MEDS: ERYTHROMYCIN STEARATE 250 MG TABLET GT SCH ×3 (05:46→17:27)
[2018-08-30] MEDS: JEVITY 1.2 CAL 1,000 ML BOTTLE JT PRN (06:01)
--- NOTE | 2018-08-30 06:14 | NUR ---
RT NOTE PT REC'D TRACHED ON [facility] VENT ON AC MODE. NO RESP DISTRESS OR SOB NOTED. TRACH IS PATENT AND SECURED. SX'D FOR MOD AMT OF PALE YELLOW SECRETIONS. ALARMS ARE SET AND AUDIBLE. VENT PLUGGED INTO RED OUTLET. AMBU BAG BEDSIDE. Addendum: 08/30/18 at 0614 by STELLA DALAL RT Amended: Links added.
[2018-08-30] MEDS: HYDROGEN PEROXIDE 480 ML BOTTLE TP SCH ×2 (07:10→21:13)
[2018-08-30 07:41] VITALS: BP 127/58
[2018-08-30] MEDS: Z GUARD REMEDY 4 OZ OINT TP SCH ×2 (09:32→21:14)
[2018-08-30] MEDS: RANITIDINE GT SCH ×2 (09:32→21:13)
[2018-08-30] MEDS: PROSOURCE / PROSTAT (PYXIS) 30 ML UDC JT SCH ×2 (09:32→17:27)
[2018-08-30] MEDS: COD LIVER OIL/ZINC OXIDE 120 GM TUBE TP SCH ×2 (09:32→17:27)
[2018-08-30] MEDS: LEVETIRACETAM SOL (5 ML) 100 MG/ML UDC GT SCH ×2 (09:32→21:13)
[2018-08-30] MEDS: NYSTATIN/TRIAMCIN 15 GM CREAM 15 GM TUBE TP SCH ×2 (09:32→21:14)
[2018-08-30] MEDS: VITS A AND D/WHITE PET/LANOLIN 5 GM PACKET TP SCH ×2 (09:33→21:14)
[2018-08-30] MEDS: ZINC OXIDE 30 GM TUBE TP SCH ×2 (09:33→21:14)
[2018-08-30] MEDS: POLYVINYL ALCOHOL 15 ML BOTTLE EACHEYE SCH ×4 (09:33→21:13)
--- NOTE | 2018-08-30 09:33 | NUR ---
RT PATIENT REC'D TRACHED ON ORDERED MODALITY TOLERATED WELL. ALL SAFETY MEASURES CHECKED. TRACH PATENT AND SECURE IN PROPER POSITION. TRACH CARE DONE. TRACH TIES, GAUZE AND INNER CANNULA CHANGED. NO SOB OR DISTRESS NOTED. WILL CONTINUE CURRENT PLAN OF CARE. Addendum: 08/30/18 at 0933 by JOSE SALDAÑA RT Amended: Links added.
[2018-08-30 20:16] VITALS: BP 111/66
[2018-08-30] MEDS: POLYETHYLENE GLYCOL 3350 17 GM POWD.PACK GT SCH (21:14)
[2018-08-31] MEDS: ERYTHROMYCIN STEARATE 250 MG TABLET GT SCH ×5 (00:18→23:50)
[2018-08-31] MEDS: ALBUTEROL FS 2.5 MG/3 ML VIAL.NEB NEB SCH ×4 (01:17→19:45)
[2018-08-31] MEDS: JEVITY 1.2 CAL 1,000 ML BOTTLE JT PRN (06:18)
[2018-08-31 07:55] VITALS: BP 101/58
--- NOTE | 2018-08-31 08:12 | NUR ---
RT NOTE PT REC'D TRACHED ON MECHANICAL VENT ON CHARTED SETTINGS. NO RESP DISTRESS OR SOB NOTED AT THIS TIME. TRACH IS PATENT AND SECURED. SX'D FOR MODERATE AMT OF PALE YELLOW SECRETIONS. ALARMS ARE SET AND AUDIBLE. VENT PLUGGED INTO RED OUTLET. AMBU BAG BEDSIDE. Addendum: 08/31/18 at 0813 by KYM DUEÑAS RT Amended: Links added.
[2018-08-31] MEDS: POLYVINYL ALCOHOL 15 ML BOTTLE EACHEYE SCH ×4 (09:12→21:02)
[2018-08-31] MEDS: COD LIVER OIL/ZINC OXIDE 120 GM TUBE TP SCH ×2 (09:12→17:33)
[2018-08-31] MEDS: RANITIDINE GT SCH ×2 (09:12→21:02)
[2018-08-31] MEDS: NYSTATIN/TRIAMCIN 15 GM CREAM 15 GM TUBE TP SCH ×2 (09:12→21:02)
[2018-08-31] MEDS: PROSOURCE / PROSTAT (PYXIS) 30 ML UDC JT SCH ×2 (09:12→17:33)
[2018-08-31] MEDS: VITS A AND D/WHITE PET/LANOLIN 5 GM PACKET TP SCH ×2 (09:12→21:02)
[2018-08-31] MEDS: ZINC OXIDE 30 GM TUBE TP SCH ×2 (09:12→21:03)
[2018-08-31] MEDS: Z GUARD REMEDY 4 OZ OINT TP SCH ×2 (09:12→21:02)
[2018-08-31] MEDS: LEVETIRACETAM SOL (5 ML) 100 MG/ML UDC GT SCH ×2 (09:12→21:02)
[2018-08-31] MEDS: HYDROGEN PEROXIDE 480 ML BOTTLE TP SCH ×2 (09:53→19:45)
[2018-08-31 21:00] VITALS: BP 114/64
[2018-08-31] MEDS: POLYETHYLENE GLYCOL 3350 17 GM POWD.PACK GT SCH (21:03)
--- NOTE | 2018-08-31 23:29 | NUR ---
PATIENT RECEIVED ON TRACH TO VENT WITH SETTINGS OF AC 14, 450 Vt, 40%, +0. SUCTIONED FOR MINIMAL, THIN, WHITE SECRETIONS. GIVEN IN-LINE TREATMENTS WITH NO ADVERSE REACTIONS. AMBU BAG AT BEDSIDE. VENT AND PULSE OXIMETER ALARMS AUDIBLE AND VISIBLE. VENT PLUGGED INTO RED OUTLET. Addendum: 08/31/18 at 2331 by MALLY NGUYEN RT Amended: Links added.
[2018-09-01] MEDS: ALBUTEROL FS 2.5 MG/3 ML VIAL.NEB NEB SCH ×5 (01:30→19:12)
[2018-09-01] MEDS: ERYTHROMYCIN STEARATE 250 MG TABLET GT SCH ×4 (05:29→23:26)
[2018-09-01] MEDS: JEVITY 1.2 CAL 1,000 ML BOTTLE JT PRN (05:58)
[2018-09-01 07:34] VITALS: BP 106/65
--- NOTE | 2018-09-01 08:32 | NUR ---
RT NOTE PT REC'D TRACHED ON MECHANICAL VENT ON CHARTED SETTINGS. NO RESP DISTRESS OR SOB NOTED AT THIS TIME. TRACH IS PATENT AND SECURED. SX'D FOR MODERATE AMOUNT OF PALE YELLOW SECRETIONS. ALARMS ARE SET AND AUDIBLE. VENT PLUGGED INTO RED OUTLET. AMBU BAG BEDSIDE. Addendum: 09/01/18 at 0833 by KYM DUEÑAS RT Amended: Links added.
[2018-09-01] MEDS: HYDROGEN PEROXIDE 480 ML BOTTLE TP SCH ×2 (09:00→21:36)
[2018-09-01] MEDS: Z GUARD REMEDY 4 OZ OINT TP SCH ×2 (09:31→21:37)
[2018-09-01] MEDS: COD LIVER OIL/ZINC OXIDE 120 GM TUBE TP SCH ×2 (09:31→17:00)
[2018-09-01] MEDS: RANITIDINE GT SCH ×2 (09:31→21:40)
[2018-09-01] MEDS: POLYVINYL ALCOHOL 15 ML BOTTLE EACHEYE SCH ×4 (09:31→21:36)
[2018-09-01] MEDS: PROSOURCE / PROSTAT (PYXIS) 30 ML UDC JT SCH ×2 (09:31→17:00)
[2018-09-01] MEDS: NYSTATIN/TRIAMCIN 15 GM CREAM 15 GM TUBE TP SCH ×2 (09:31→21:36)
[2018-09-01] MEDS: LEVETIRACETAM SOL (5 ML) 100 MG/ML UDC GT SCH ×2 (09:31→21:39)
[2018-09-01] MEDS: VITS A AND D/WHITE PET/LANOLIN 5 GM PACKET TP SCH ×2 (09:31→21:37)
[2018-09-01] MEDS: ZINC OXIDE 30 GM TUBE TP SCH ×2 (09:32→21:37)
[2018-09-01 20:41] VITALS: BP 110/68
[2018-09-01] MEDS: POLYETHYLENE GLYCOL 3350 17 GM POWD.PACK GT SCH (21:37)
[2018-09-02] MEDS: ALBUTEROL FS 2.5 MG/3 ML VIAL.NEB NEB SCH ×4 (01:17→19:18)
[2018-09-02] MEDS: ERYTHROMYCIN STEARATE 250 MG TABLET GT SCH ×4 (05:43→23:46)
[2018-09-02] MEDS: HYDROGEN PEROXIDE 480 ML BOTTLE TP SCH ×2 (07:48→21:06)
[2018-09-02] MEDS: LEVETIRACETAM SOL (5 ML) 100 MG/ML UDC GT SCH ×2 (08:00→21:06)
[2018-09-02] MEDS: PROSOURCE / PROSTAT (PYXIS) 30 ML UDC JT SCH ×2 (08:00→17:42)
[2018-09-02] MEDS: RANITIDINE GT SCH ×2 (08:00→21:06)
[2018-09-02] MEDS: POLYVINYL ALCOHOL 15 ML BOTTLE EACHEYE SCH ×4 (08:00→21:06)
[2018-09-02] MEDS: Z GUARD REMEDY 4 OZ OINT TP SCH ×2 (09:00→21:06)
[2018-09-02] MEDS: VITS A AND D/WHITE PET/LANOLIN 5 GM PACKET TP SCH ×2 (09:00→21:06)
[2018-09-02] MEDS: COD LIVER OIL/ZINC OXIDE 120 GM TUBE TP SCH ×2 (09:00→17:42)
[2018-09-02] MEDS: NYSTATIN/TRIAMCIN 15 GM CREAM 15 GM TUBE TP SCH ×2 (09:00→21:06)
[2018-09-02] MEDS: ZINC OXIDE 30 GM TUBE TP SCH ×2 (09:00→21:06)
[2018-09-02 09:51] VITALS: BP 122/76
--- NOTE | 2018-09-02 10:55 | NUR ---
Called Dr Kerr's office and spoke with Jamal. She said Dr Kerr will see pt for teeth cleaning on Sunday09/06/18 between 7536-2397 pm. Notified pt's aunt.
--- NOTE | 2018-09-02 18:38 | NUR ---
RT Pt on mech vent and tolerating settings well. Pt is stable. No respiratory distress or sob noted t/o shift. Addendum: 09/02/18 at 1839 by HUGH LICONA RT Amended: Links added.
--- NOTE | 2018-09-02 20:00 | NUR ---
RN NOTES Seen by Germaine Mike NP, with no new orders.
[2018-09-02 20:46] VITALS: BP 103/59
[2018-09-02] MEDS: POLYETHYLENE GLYCOL 3350 17 GM POWD.PACK GT SCH (21:06)
[2018-09-03] MEDS: ALBUTEROL FS 2.5 MG/3 ML VIAL.NEB NEB SCH ×4 (01:06→19:45)
[2018-09-03] MEDS: ERYTHROMYCIN STEARATE 250 MG TABLET GT SCH ×3 (05:51→18:12)
[2018-09-03 08:00] VITALS: BP 104/55
[2018-09-03] MEDS: POLYVINYL ALCOHOL 15 ML BOTTLE EACHEYE SCH ×4 (08:09→21:13)
[2018-09-03] MEDS: LEVETIRACETAM SOL (5 ML) 100 MG/ML UDC GT SCH ×2 (08:10→21:13)
[2018-09-03] MEDS: PROSOURCE / PROSTAT (PYXIS) 30 ML UDC JT SCH ×2 (08:10→17:00)
[2018-09-03] MEDS: RANITIDINE GT SCH ×2 (08:11→21:13)
--- NOTE | 2018-09-03 08:27 | NUR ---
RT NOTE PT REC'D TRACHED ON MECHANICAL VENT ON CHARTED SETTINGS. NO RESP DISTRESS OR SOB NOTED AT THIS TIME. TRACH IS PATENT AND SECURED. SX'D FOR MODERATE AMOUNT OF PALE YELLOW SECRETIONS. ALARMS ARE SET AND AUDIBLE. VENT PLUGGED INTO RED OUTLET. AMBU BAG BEDSIDE. Addendum: 09/03/18 at 0871 by KYM DUEÑAS RT Amended: Links added.
[2018-09-03] MEDS: NYSTATIN/TRIAMCIN 15 GM CREAM 15 GM TUBE TP SCH ×2 (09:43→21:14)
[2018-09-03] MEDS: Z GUARD REMEDY 4 OZ OINT TP SCH ×2 (09:43→21:14)
[2018-09-03] MEDS: COD LIVER OIL/ZINC OXIDE 120 GM TUBE TP SCH ×2 (09:43→17:00)
[2018-09-03] MEDS: VITS A AND D/WHITE PET/LANOLIN 5 GM PACKET TP SCH ×2 (09:43→21:14)
[2018-09-03] MEDS: HYDROGEN PEROXIDE 480 ML BOTTLE TP SCH ×2 (09:43→21:14)
[2018-09-03] MEDS: ZINC OXIDE 30 GM TUBE TP SCH ×2 (09:43→21:14)
[2018-09-03 21:01] VITALS: BP 109/80
[2018-09-03] MEDS: POLYETHYLENE GLYCOL 3350 17 GM POWD.PACK GT SCH (21:14)
[2018-09-04] MEDS: ERYTHROMYCIN STEARATE 250 MG TABLET GT SCH ×4 (00:27→17:59)
[2018-09-04] MEDS: ALBUTEROL FS 2.5 MG/3 ML VIAL.NEB NEB SCH ×4 (01:27→20:17)
[2018-09-04 07:55] VITALS: BP 104/74
[2018-09-04] MEDS: POLYVINYL ALCOHOL 15 ML BOTTLE EACHEYE SCH ×4 (08:42→21:42)
[2018-09-04] MEDS: LEVETIRACETAM SOL (5 ML) 100 MG/ML UDC GT SCH ×2 (08:42→21:42)
[2018-09-04] MEDS: PROSOURCE / PROSTAT (PYXIS) 30 ML UDC JT SCH ×2 (08:42→16:29)
[2018-09-04] MEDS: RANITIDINE GT SCH ×2 (08:42→21:42)
[2018-09-04] MEDS: COD LIVER OIL/ZINC OXIDE 120 GM TUBE TP SCH ×2 (08:42→16:29)
[2018-09-04] MEDS: ZINC OXIDE 30 GM TUBE TP SCH ×2 (09:00→21:43)
[2018-09-04] MEDS: NYSTATIN/TRIAMCIN 15 GM CREAM 15 GM TUBE TP SCH ×2 (09:00→21:42)
[2018-09-04] MEDS: Z GUARD REMEDY 4 OZ OINT TP SCH ×2 (09:00→21:42)
[2018-09-04] MEDS: HYDROGEN PEROXIDE 480 ML BOTTLE TP SCH ×2 (09:00→20:42)
[2018-09-04] MEDS: VITS A AND D/WHITE PET/LANOLIN 5 GM PACKET TP SCH ×2 (09:00→21:43)
--- NOTE | 2018-09-04 12:14 | NUR ---
Resident's father and aunt visited to celebrate patient's birthday at bedside.
[2018-09-04 20:48] VITALS: BP 106/56
[2018-09-04] MEDS: POLYETHYLENE GLYCOL 3350 17 GM POWD.PACK GT SCH (21:43)
[2018-09-05] MEDS: ERYTHROMYCIN STEARATE 250 MG TABLET GT SCH ×5 (00:01→23:38)
[2018-09-05] MEDS: ALBUTEROL FS 2.5 MG/3 ML VIAL.NEB NEB SCH ×4 (01:40→20:06)
[2018-09-05] MEDS: JEVITY 1.2 CAL 1,000 ML BOTTLE JT PRN (06:31)
[2018-09-05 07:45] VITALS: BP 108/69
[2018-09-05] MEDS: HYDROGEN PEROXIDE 480 ML BOTTLE TP SCH ×2 (09:00→21:18)
[2018-09-05] MEDS: PROSOURCE / PROSTAT (PYXIS) 30 ML UDC JT SCH ×2 (09:24→17:43)
[2018-09-05] MEDS: LEVETIRACETAM SOL (5 ML) 100 MG/ML UDC GT SCH ×2 (09:24→21:18)
[2018-09-05] MEDS: POLYVINYL ALCOHOL 15 ML BOTTLE EACHEYE SCH ×4 (09:24→21:17)
[2018-09-05] MEDS: NYSTATIN/TRIAMCIN 15 GM CREAM 15 GM TUBE TP SCH ×2 (09:24→21:18)
[2018-09-05] MEDS: Z GUARD REMEDY 4 OZ OINT TP SCH ×2 (09:24→21:18)
[2018-09-05] MEDS: COD LIVER OIL/ZINC OXIDE 120 GM TUBE TP SCH ×2 (09:24→17:43)
[2018-09-05] MEDS: RANITIDINE GT SCH ×2 (09:24→21:18)
[2018-09-05] MEDS: ZINC OXIDE 30 GM TUBE TP SCH ×2 (09:25→21:18)
[2018-09-05] MEDS: VITS A AND D/WHITE PET/LANOLIN 5 GM PACKET TP SCH ×2 (09:25→21:18)
[2018-09-05 20:34] VITALS: BP 108/67
[2018-09-05] MEDS: POLYETHYLENE GLYCOL 3350 17 GM POWD.PACK GT SCH (21:18)
--- NOTE | 2018-09-05 21:28 | NUR ---
RT NOTE PATIENT RECEIVED TRACH ON MECHANICAL VENTILATION. AWAKE/ALERT. AMBU BAG/BACK UP TRACH @ BEDSIDE. TX GIVEN, NO ADVERSE REACTIONS NOTED. ALARMS ON AND AUDIBLE. NO DISTRESS NOTED. CONT. POX. @ BEDSIDE. PATIENT STABLE. WILL MONITOR. Addendum: 09/05/18 at 2130 by MILAN CARRASCO RT Amended: Links added.
[2018-09-06] MEDS: ALBUTEROL FS 2.5 MG/3 ML VIAL.NEB NEB SCH ×4 (01:57→19:23)
--- NOTE | 2018-09-06 02:26 | NUR ---
RT NOTE PATIENT REFUSED TRACH CARE. GAUZE APPEARS TO BE NOT SOILED AT THIS TIME.
[2018-09-06] MEDS: ERYTHROMYCIN STEARATE 250 MG TABLET GT SCH ×4 (05:18→23:24)
[2018-09-06] MEDS: JEVITY 1.2 CAL 1,000 ML BOTTLE JT PRN (06:39)
[2018-09-06 07:58] VITALS: BP 106/63
[2018-09-06] MEDS: HYDROGEN PEROXIDE 480 ML BOTTLE TP SCH ×2 (09:00→20:48)
[2018-09-06] MEDS: NYSTATIN/TRIAMCIN 15 GM CREAM 15 GM TUBE TP SCH ×2 (09:05→20:48)
[2018-09-06] MEDS: RANITIDINE GT SCH ×2 (09:05→20:48)
[2018-09-06] MEDS: LEVETIRACETAM SOL (5 ML) 100 MG/ML UDC GT SCH ×2 (09:05→20:48)
[2018-09-06] MEDS: COD LIVER OIL/ZINC OXIDE 120 GM TUBE TP SCH ×2 (09:05→17:58)
[2018-09-06] MEDS: POLYVINYL ALCOHOL 15 ML BOTTLE EACHEYE SCH ×4 (09:05→20:48)
[2018-09-06] MEDS: PROSOURCE / PROSTAT (PYXIS) 30 ML UDC JT SCH ×2 (09:05→17:57)
[2018-09-06] MEDS: ZINC OXIDE 30 GM TUBE TP SCH ×2 (09:06→20:48)
[2018-09-06] MEDS: Z GUARD REMEDY 4 OZ OINT TP SCH ×2 (09:06→20:48)
[2018-09-06] MEDS: VITS A AND D/WHITE PET/LANOLIN 5 GM PACKET TP SCH ×2 (09:06→20:48)
--- NOTE | 2018-09-06 15:35 | NUR ---
The Resident had a Dental cleaning done today by Dr. Kerr. Per Dr. Kerr, he recommend additional cleanings. will inform responsible green party regarding Dental visit and cleaning and determine if they would like to pay for additional cleanings.
--- NOTE | 2018-09-06 17:23 | NUR ---
RT NOTE PT REMAINS MECHANICALLY VENTILATED VIA CUFFED TRACHEOSTOMY TUBE. CUFF INFLATED. TRACH TUBE MIDLINE AND SECURE. VENTILATOR SETTINGS PRESCRIBED. ALARMS SET PER PROTOCOL AND AUDIBLE. AMBU BAG AT BED SIDE. VENT PLUGGED IN TO RED OUTLET. NO DISTRESS NOTED. Addendum: 09/06/18 at 1723 by GLENIS MUNIZ RT Amended: Links added.
[2018-09-06 19:57] VITALS: BP 111/73
[2018-09-06] MEDS: POLYETHYLENE GLYCOL 3350 17 GM POWD.PACK GT SCH (22:00)
[2018-09-07] MEDS: ALBUTEROL FS 2.5 MG/3 ML VIAL.NEB NEB SCH ×4 (00:49→19:52)
[2018-09-07] MEDS: ERYTHROMYCIN STEARATE 250 MG TABLET GT SCH ×3 (05:35→17:29)
[2018-09-07] MEDS: JEVITY 1.2 CAL 1,000 ML BOTTLE JT PRN (05:59)
[2018-09-07 07:57] VITALS: BP 111/65
[2018-09-07] MEDS: LEVETIRACETAM SOL (5 ML) 100 MG/ML UDC GT SCH ×2 (08:31→20:47)
[2018-09-07] MEDS: POLYVINYL ALCOHOL 15 ML BOTTLE EACHEYE SCH ×4 (08:31→20:46)
[2018-09-07] MEDS: PROSOURCE / PROSTAT (PYXIS) 30 ML UDC JT SCH ×2 (08:31→16:29)
[2018-09-07] MEDS: RANITIDINE GT SCH ×2 (08:31→20:47)
[2018-09-07] MEDS: COD LIVER OIL/ZINC OXIDE 120 GM TUBE TP SCH ×2 (09:00→16:29)
[2018-09-07] MEDS: VITS A AND D/WHITE PET/LANOLIN 5 GM PACKET TP SCH ×2 (09:00→20:49)
[2018-09-07] MEDS: HYDROGEN PEROXIDE 480 ML BOTTLE TP SCH ×2 (09:00→20:47)
[2018-09-07] MEDS: ZINC OXIDE 30 GM TUBE TP SCH ×2 (09:00→20:50)
[2018-09-07] MEDS: NYSTATIN/TRIAMCIN 15 GM CREAM 15 GM TUBE TP SCH ×2 (09:00→20:47)
[2018-09-07] MEDS: Z GUARD REMEDY 4 OZ OINT TP SCH ×2 (09:00→20:47)
[2018-09-07 20:47] VITALS: BP 102/65
[2018-09-07] MEDS: POLYETHYLENE GLYCOL 3350 17 GM POWD.PACK GT SCH (22:06)
[2018-09-08] MEDS: ERYTHROMYCIN STEARATE 250 MG TABLET GT SCH ×4 (00:04→18:28)
[2018-09-08] MEDS: ALBUTEROL FS 2.5 MG/3 ML VIAL.NEB NEB SCH ×4 (01:30→19:42)
[2018-09-08 07:35] VITALS: BP 96/61
--- NOTE | 2018-09-08 08:29 | NUR ---
RT NOTE PT REC'D TRACHED ON MECHANICAL VENT ON CHARTED SETTINGS. NO RESP DISTRESS OR SOB NOTED AT THIS TIME. TRACH IS PATENT AND SECURED. SX'D FOR MODERATE AMOUNT OF PALE YELLOW SECRETIONS. ALARMS ARE SET AND AUDIBLE. VENT PLUGGED INTO RED OUTLET. AMBU BAG BEDSIDE. Addendum: 09/08/18 at 0829 by KYM DUEÑAS RT Amended: Links added.
[2018-09-08] MEDS: ZINC OXIDE 30 GM TUBE TP SCH ×2 (09:00→21:08)
[2018-09-08] MEDS: VITS A AND D/WHITE PET/LANOLIN 5 GM PACKET TP SCH ×2 (09:00→21:08)
[2018-09-08] MEDS: RANITIDINE GT SCH ×2 (09:00→21:07)
[2018-09-08] MEDS: LEVETIRACETAM SOL (5 ML) 100 MG/ML UDC GT SCH ×2 (09:00→21:07)
[2018-09-08] MEDS: POLYVINYL ALCOHOL 15 ML BOTTLE EACHEYE SCH ×4 (09:00→21:07)
[2018-09-08] MEDS: COD LIVER OIL/ZINC OXIDE 120 GM TUBE TP SCH ×2 (09:00→17:00)
[2018-09-08] MEDS: HYDROGEN PEROXIDE 480 ML BOTTLE TP SCH ×2 (09:00→21:07)
[2018-09-08] MEDS: Z GUARD REMEDY 4 OZ OINT TP SCH ×2 (09:00→21:08)
[2018-09-08] MEDS: NYSTATIN/TRIAMCIN 15 GM CREAM 15 GM TUBE TP SCH ×2 (09:00→21:07)
[2018-09-08] MEDS: PROSOURCE / PROSTAT (PYXIS) 30 ML UDC JT SCH ×2 (09:00→17:00)
[2018-09-08] MEDS: JEVITY 1.2 CAL 1,000 ML BOTTLE JT PRN (12:45)
[2018-09-08 20:04] VITALS: BP 100/63
[2018-09-08] MEDS: POLYETHYLENE GLYCOL 3350 17 GM POWD.PACK GT SCH (21:08)
[2018-09-09] MEDS: ERYTHROMYCIN STEARATE 250 MG TABLET GT SCH ×4 (00:21→18:26)
[2018-09-09] MEDS: ALBUTEROL FS 2.5 MG/3 ML VIAL.NEB NEB SCH ×4 (01:09→20:23)
[2018-09-09 07:34] VITALS: BP 110/69
[2018-09-09] MEDS: RANITIDINE GT SCH ×2 (08:44→20:56)
[2018-09-09] MEDS: COD LIVER OIL/ZINC OXIDE 120 GM TUBE TP SCH ×2 (08:44→17:00)
[2018-09-09] MEDS: POLYVINYL ALCOHOL 15 ML BOTTLE EACHEYE SCH ×4 (08:44→20:56)
[2018-09-09] MEDS: NYSTATIN/TRIAMCIN 15 GM CREAM 15 GM TUBE TP SCH ×2 (08:44→20:56)
[2018-09-09] MEDS: Z GUARD REMEDY 4 OZ OINT TP SCH ×2 (08:44→20:56)
[2018-09-09] MEDS: ZINC OXIDE 30 GM TUBE TP SCH ×2 (08:44→20:57)
[2018-09-09] MEDS: VITS A AND D/WHITE PET/LANOLIN 5 GM PACKET TP SCH ×2 (08:44→20:56)
[2018-09-09] MEDS: LEVETIRACETAM SOL (5 ML) 100 MG/ML UDC GT SCH ×2 (08:44→20:56)
[2018-09-09] MEDS: PROSOURCE / PROSTAT (PYXIS) 30 ML UDC JT SCH ×2 (08:44→17:00)
[2018-09-09] MEDS: HYDROGEN PEROXIDE 480 ML BOTTLE TP SCH ×2 (09:00→20:22)
[2018-09-09] MEDS: JEVITY 1.2 CAL 1,000 ML BOTTLE JT PRN (14:38)
[2018-09-09 20:19] VITALS: BP 100/64
[2018-09-09] MEDS: POLYETHYLENE GLYCOL 3350 17 GM POWD.PACK GT SCH (21:08)
[2018-09-10] MEDS: ERYTHROMYCIN STEARATE 250 MG TABLET GT SCH ×5 (00:12→23:50)
[2018-09-10] MEDS: ALBUTEROL FS 2.5 MG/3 ML VIAL.NEB NEB SCH ×5 (01:26→19:59)
--- NOTE | 2018-09-10 04:53 | NUR ---
PATIENT RECEIVED ON TRACH TO VENT WITH SETTINGS OF AC 14, 450 VT, 40%, +0. SUCTIONED WITH LAVAGE FOR MINIMAL, THIN, WHITE SECRETIONS. GIVEN IN-LINE TREATMENTS WITH NO ADVERSE REACTIONS. AMBU BAG AT BEDSIDE. VENT AND PULSE OXIMETER ALARMS AUDIBLE AND VISIBLE. VENT PLUGGED INTO RED OUTLET. Addendum: 09/10/18 at 0455 by MALLY NGUYEN RT Amended: Links added.
[2018-09-10] MEDS: HYDROGEN PEROXIDE 480 ML BOTTLE TP SCH ×2 (06:58→19:59)
[2018-09-10 07:49] VITALS: BP 100/56
--- NOTE | 2018-09-10 08:22 | NUR ---
RT PATIENT REC'D TRACHED ON [facility] VENT BRAULIO WELL. PATIENT SUCTIONED WITH SMALL AMT OF PALE SEMITHICK SECRETIONS. TRACH SECURE AND PATENT. INNER CANULA CHANGED. VENT ALARMS CHECKED + AUDIBLE. BACK UP TRACH AND AMBU BAG AT [facility]. PATIENT IN NO DISTRESS AT THIS TIME. CONT CURRENT PLAN OF CARE. Addendum: 09/10/18 at 1449 by JOSE SALDAÑA RT Amended: Links added.
--- NOTE | 2018-09-10 09:00 | NUR ---
Seen and examined by Dr. Cleveland, no new order given.
[2018-09-10] MEDS: VITS A AND D/WHITE PET/LANOLIN 5 GM PACKET TP SCH ×2 (09:08→20:55)
[2018-09-10] MEDS: POLYVINYL ALCOHOL 15 ML BOTTLE EACHEYE SCH ×4 (09:08→20:54)
[2018-09-10] MEDS: LEVETIRACETAM SOL (5 ML) 100 MG/ML UDC GT SCH ×2 (09:08→20:54)
[2018-09-10] MEDS: PROSOURCE / PROSTAT (PYXIS) 30 ML UDC JT SCH ×2 (09:08→17:00)
[2018-09-10] MEDS: COD LIVER OIL/ZINC OXIDE 120 GM TUBE TP SCH ×2 (09:08→17:00)
[2018-09-10] MEDS: RANITIDINE GT SCH ×2 (09:08→20:54)
[2018-09-10] MEDS: Z GUARD REMEDY 4 OZ OINT TP SCH ×2 (09:08→20:54)
[2018-09-10] MEDS: NYSTATIN/TRIAMCIN 15 GM CREAM 15 GM TUBE TP SCH ×2 (09:08→20:54)
[2018-09-10] MEDS: ZINC OXIDE 30 GM TUBE TP SCH ×2 (09:09→20:55)
[2018-09-10] MEDS: JEVITY 1.2 CAL 1,000 ML BOTTLE JT PRN (18:46)
[2018-09-10] MEDS: POLYETHYLENE GLYCOL 3350 17 GM POWD.PACK GT SCH (21:00)
[2018-09-10 21:03] VITALS: BP 108/48
[2018-09-11] MEDS: ALBUTEROL FS 2.5 MG/3 ML VIAL.NEB NEB SCH ×4 (01:45→19:58)
[2018-09-11] MEDS: ERYTHROMYCIN STEARATE 250 MG TABLET GT SCH ×4 (05:59→23:01)
[2018-09-11 08:00] VITALS: BP 109/68
--- NOTE | 2018-09-11 08:15 | NUR ---
Late Entry for 09/10/18 TSERING contacted patient's responsible libertarian, Sugey Brice [phone] to inform them that the patient had a dental cleaning done on 09/06/18 and offer them the option to pay for additional dental cleaning as recommended by the pt.'s dentist, Philippe Kerr [phone]. TSERING was unable to reach responsible libertarian but left a voicemail. TSERING will be available to assist pt. and family as needed.
[2018-09-11] MEDS: COD LIVER OIL/ZINC OXIDE 120 GM TUBE TP SCH ×2 (08:17→17:11)
[2018-09-11] MEDS: RANITIDINE GT SCH ×2 (08:17→20:15)
[2018-09-11] MEDS: PROSOURCE / PROSTAT (PYXIS) 30 ML UDC JT SCH ×2 (08:17→17:11)
[2018-09-11] MEDS: POLYVINYL ALCOHOL 15 ML BOTTLE EACHEYE SCH ×4 (08:17→20:13)
[2018-09-11] MEDS: LEVETIRACETAM SOL (5 ML) 100 MG/ML UDC GT SCH ×2 (08:17→20:15)
[2018-09-11] MEDS: HYDROGEN PEROXIDE 480 ML BOTTLE TP SCH ×2 (08:49→20:15)
[2018-09-11] MEDS: NYSTATIN/TRIAMCIN 15 GM CREAM 15 GM TUBE TP SCH ×2 (09:00→20:15)
[2018-09-11] MEDS: ZINC OXIDE 30 GM TUBE TP SCH ×2 (09:00→20:16)
[2018-09-11] MEDS: Z GUARD REMEDY 4 OZ OINT TP SCH ×2 (09:00→20:16)
[2018-09-11] MEDS: VITS A AND D/WHITE PET/LANOLIN 5 GM PACKET TP SCH ×2 (09:00→20:16)
[2018-09-11] MEDS: JEVITY 1.2 CAL 1,000 ML BOTTLE JT PRN (17:19)
[2018-09-11] MEDS: POLYETHYLENE GLYCOL 3350 17 GM POWD.PACK GT SCH (20:16)
[2018-09-11 20:53] VITALS: BP 107/67
[2018-09-11 21:39] VITALS: BP 103/59
[2018-09-12] MEDS: ALBUTEROL FS 2.5 MG/3 ML VIAL.NEB NEB SCH ×4 (01:45→20:07)
[2018-09-12] MEDS: ERYTHROMYCIN STEARATE 250 MG TABLET GT SCH ×4 (05:06→23:51)
[2018-09-12 07:40] VITALS: BP 95/55
[2018-09-12] MEDS: Z GUARD REMEDY 4 OZ OINT TP SCH ×2 (08:12→21:00)
[2018-09-12] MEDS: VITS A AND D/WHITE PET/LANOLIN 5 GM PACKET TP SCH ×2 (08:12→21:00)
[2018-09-12] MEDS: ZINC OXIDE 30 GM TUBE TP SCH (08:12)
[2018-09-12] MEDS: NYSTATIN/TRIAMCIN 15 GM CREAM 15 GM TUBE TP SCH (08:12)
[2018-09-12] MEDS: POLYVINYL ALCOHOL 15 ML BOTTLE EACHEYE SCH ×4 (08:12→21:00)
[2018-09-12] MEDS: LEVETIRACETAM SOL (5 ML) 100 MG/ML UDC GT SCH ×2 (08:12→21:00)
[2018-09-12] MEDS: RANITIDINE GT SCH ×2 (08:12→21:00)
[2018-09-12] MEDS: COD LIVER OIL/ZINC OXIDE 120 GM TUBE TP SCH ×2 (08:12→17:16)
[2018-09-12] MEDS: PROSOURCE / PROSTAT (PYXIS) 30 ML UDC JT SCH ×2 (08:12→17:16)
[2018-09-12] MEDS: HYDROGEN PEROXIDE 480 ML BOTTLE TP SCH ×2 (09:00→21:00)
[2018-09-12 20:47] VITALS: BP 101/65
[2018-09-12] MEDS: POLYETHYLENE GLYCOL 3350 17 GM POWD.PACK GT SCH (22:05)
[2018-09-13] MEDS: ALBUTEROL FS 2.5 MG/3 ML VIAL.NEB NEB SCH ×4 (01:31→19:11)
[2018-09-13] MEDS: ERYTHROMYCIN STEARATE 250 MG TABLET GT SCH ×3 (05:09→18:14)
[2018-09-13 07:46] VITALS: BP 93/54
[2018-09-13 08:00] VITALS: BP 93/54
[2018-09-13] MEDS: POLYVINYL ALCOHOL 15 ML BOTTLE EACHEYE SCH ×4 (08:49→21:18)
[2018-09-13] MEDS: LEVETIRACETAM SOL (5 ML) 100 MG/ML UDC GT SCH ×2 (08:50→21:05)
[2018-09-13] MEDS: PROSOURCE / PROSTAT (PYXIS) 30 ML UDC JT SCH ×2 (08:51→17:00)
[2018-09-13] MEDS: RANITIDINE GT SCH ×2 (08:54→21:05)
[2018-09-13] MEDS: COD LIVER OIL/ZINC OXIDE 120 GM TUBE TP SCH ×2 (09:00→17:00)
[2018-09-13] MEDS: VITS A AND D/WHITE PET/LANOLIN 5 GM PACKET TP SCH ×2 (09:00→21:57)
[2018-09-13] MEDS: Z GUARD REMEDY 4 OZ OINT TP SCH ×2 (09:00→21:57)
[2018-09-13] MEDS: HYDROGEN PEROXIDE 480 ML BOTTLE TP SCH ×2 (09:00→21:00)
[2018-09-13 12:00] VITALS: BP 115/79
[2018-09-13 16:00] VITALS: BP 112/76
[2018-09-13 20:00] VITALS: BP 102/65
[2018-09-13] MEDS: POLYETHYLENE GLYCOL 3350 17 GM POWD.PACK GT SCH (21:06)
[2018-09-13] MEDS: JEVITY 1.2 CAL 1,000 ML BOTTLE JT PRN (21:20)
[2018-09-13 21:55] VITALS: BP 102/65
[2018-09-14] MEDS: ERYTHROMYCIN STEARATE 250 MG TABLET GT SCH ×4 (00:37→17:45)
[2018-09-14] MEDS: ALBUTEROL FS 2.5 MG/3 ML VIAL.NEB NEB SCH ×4 (01:26→19:12)
[2018-09-14 07:48] VITALS: BP 107/64
[2018-09-14] MEDS: Z GUARD REMEDY 4 OZ OINT TP SCH ×2 (09:00→21:14)
[2018-09-14] MEDS: HYDROGEN PEROXIDE 480 ML BOTTLE TP SCH ×2 (09:00→21:14)
[2018-09-14] MEDS: VITS A AND D/WHITE PET/LANOLIN 5 GM PACKET TP SCH ×2 (09:00→21:14)
[2018-09-14] MEDS: POLYVINYL ALCOHOL 15 ML BOTTLE EACHEYE SCH ×4 (09:12→21:13)
[2018-09-14] MEDS: COD LIVER OIL/ZINC OXIDE 120 GM TUBE TP SCH ×2 (09:13→16:30)
[2018-09-14] MEDS: PROSOURCE / PROSTAT (PYXIS) 30 ML UDC JT SCH ×2 (09:13→16:30)
[2018-09-14] MEDS: LEVETIRACETAM SOL (5 ML) 100 MG/ML UDC GT SCH ×2 (09:13→21:13)
[2018-09-14] MEDS: RANITIDINE GT SCH ×2 (09:13→21:13)
--- NOTE | 2018-09-14 14:55 | NUR ---
RT NOTE PT REMAINS MECHANICALLY VENTILATED VIA CUFFED TRACHEOSTOMY TUBE. CUFF INFLATED. TRACH TUBE MIDLINE AND SECURE. VENTILATOR SETTINGS PRESCRIBED. ALARMS SET PER PROTOCOL AND AUDIBLE. VENT PLUGGED IN TO RED OUTLET. AMBU BAG AT BED SIDE. NO DISTRESS NOTED. Addendum: 09/14/18 at 1456 by GLENIS MUNIZ RT Amended: Links added.
[2018-09-14] MEDS: JEVITY 1.2 CAL 1,000 ML BOTTLE JT PRN (19:19)
[2018-09-14 21:12] VITALS: BP 103/57
[2018-09-14] MEDS: POLYETHYLENE GLYCOL 3350 17 GM POWD.PACK GT SCH (21:14)
[2018-09-15] MEDS: ERYTHROMYCIN STEARATE 250 MG TABLET GT SCH ×4 (00:03→18:27)
[2018-09-15] MEDS: ALBUTEROL FS 2.5 MG/3 ML VIAL.NEB NEB SCH ×4 (01:36→20:06)
[2018-09-15 07:42] VITALS: BP 97/53
[2018-09-15] MEDS: POLYVINYL ALCOHOL 15 ML BOTTLE EACHEYE SCH ×4 (08:45→21:50)
[2018-09-15] MEDS: LEVETIRACETAM SOL (5 ML) 100 MG/ML UDC GT SCH ×2 (08:45→21:50)
[2018-09-15] MEDS: PROSOURCE / PROSTAT (PYXIS) 30 ML UDC JT SCH ×2 (08:45→17:00)
[2018-09-15] MEDS: RANITIDINE GT SCH ×2 (08:45→21:50)
[2018-09-15] MEDS: COD LIVER OIL/ZINC OXIDE 120 GM TUBE TP SCH ×2 (08:46→17:00)
[2018-09-15] MEDS: VITS A AND D/WHITE PET/LANOLIN 5 GM PACKET TP SCH ×2 (08:46→21:51)
[2018-09-15] MEDS: Z GUARD REMEDY 4 OZ OINT TP SCH ×2 (08:46→21:50)
[2018-09-15] MEDS: HYDROGEN PEROXIDE 480 ML BOTTLE TP SCH ×2 (08:46→20:06)
--- NOTE | 2018-09-15 15:51 | NUR ---
RT NOTE: RECEIVED PT ON ORDERED NOTED VENT SETTINGS. NO RESPIRATORY DISTRESS NOTED. TRACH CHECKED SECURE AND PATENT. SXD AND LAVAGED PT Q ROUND AND NEEDED. TXS GIVEN ORDERED WITH NO ADVERSE REACTIONS NOTED. TRACH CARE DONE. KRYSTINAE VANDA AND RAGHU LEIGH @ BEDSIDE. ALARMS CHECKED. Addendum: 09/15/18 at 1551 by PILAR CLARK RT Amended: Links added.
[2018-09-15] MEDS: JEVITY 1.2 CAL 1,000 ML BOTTLE JT PRN (18:35)
--- NOTE | 2018-09-15 20:06 | NUR ---
RT NOTE: RECEIVED TRACH PT ON MECH VENT ON NOTED SETTINGS PER MD ORDERS. TRACH CARE DONE AND IS PATENT AND SECURED. JUDICIAL ASSISTANT DONE. Q6 BREATHING TX GIVEN WITH NO ADVERSE REACTION NOTED. SX DONE PRN. VENT PLUGGED INTO RED OUTLET. ALARMS ON AND AUDIBLE. AMBU BAG @ BEDSIDE. NO RESP DISTRESS AT THIS TIME. WILL CONT TO MONITOR PT.
[2018-09-15 20:26] VITALS: BP 121/72
[2018-09-15] MEDS: POLYETHYLENE GLYCOL 3350 17 GM POWD.PACK GT SCH (21:51)
[2018-09-16] MEDS: ERYTHROMYCIN STEARATE 250 MG TABLET GT SCH ×4 (00:26→18:00)
[2018-09-16] MEDS: ALBUTEROL FS 2.5 MG/3 ML VIAL.NEB NEB SCH ×4 (02:01→19:32)
[2018-09-16 07:42] VITALS: BP 109/70
[2018-09-16] MEDS: HYDROGEN PEROXIDE 480 ML BOTTLE TP SCH ×2 (08:10→20:15)
[2018-09-16] MEDS: PROSOURCE / PROSTAT (PYXIS) 30 ML UDC JT SCH ×2 (09:00→16:48)
[2018-09-16] MEDS: VITS A AND D/WHITE PET/LANOLIN 5 GM PACKET TP SCH ×2 (09:00→20:16)
[2018-09-16] MEDS: LEVETIRACETAM SOL (5 ML) 100 MG/ML UDC GT SCH ×2 (09:00→20:15)
[2018-09-16] MEDS: Z GUARD REMEDY 4 OZ OINT TP SCH ×2 (09:00→20:15)
[2018-09-16] MEDS: POLYVINYL ALCOHOL 15 ML BOTTLE EACHEYE SCH ×4 (09:00→20:12)
[2018-09-16] MEDS: COD LIVER OIL/ZINC OXIDE 120 GM TUBE TP SCH ×2 (09:00→16:49)
[2018-09-16] MEDS: RANITIDINE GT SCH ×2 (09:00→20:16)
--- NOTE | 2018-09-16 13:47 | NUR ---
Completed MDS. Resident was able to answer that he has no pain for pain interview with aunt Sugey at bedside; however, unable to answer BIMS. Aunt said he continues to recognize family members well but does not know current year, month nor day; may have an idea where he is but will not be able to specify where. Resident remains non verbal, responds to simple direct communication with gestures. Aunt reaffirms resident will not be able to read any written material even if translated in Persian due to his learning disability.
--- NOTE | 2018-09-16 15:42 | NUR ---
SW conducted and completed Physician Practice Consultant portion of 3rd quarter MDS. The patient was awake, alert and presented laying on his bed. The patient was receptive to meeting with SW and greeted SW with a waveing hand gesture. Patient remains non-verbal and communicates with gestures, however, pt. was unable to respond. Patients family (Sugey Mitchell [phone]) are very supportive and involved as they visit the pt. almost every day. Patient is supportive care only, no CPR, no dialysis, transfer to [facility] only, DNR. Patients dental cleaning was conducted September 06, 2018.
--- NOTE | 2018-09-16 16:31 | NUR ---
TSERING received voicemail from Disability Determination Services case planner, Jolly Sherman [phone] stating that she is assisting family with applying for [employer] Disability Application (case # [id number]) but would like assistance, as family only speaks Bengali. TSERING called and spoke with case planner, Jolly who stated that the patients benefits have been discontinued and would like some medical records to make a case for the pt. to regain said benefits. Per Jolly, she received an authorization of benefits from patients conservator, Father Asuncion [phone]. TSERING will speak to conservator tomorrow and follow up with Jolly.
[2018-09-16 20:46] VITALS: BP 95/56
[2018-09-16] MEDS: POLYETHYLENE GLYCOL 3350 17 GM POWD.PACK GT SCH (21:14)
[2018-09-17] MEDS: ALBUTEROL FS 2.5 MG/3 ML VIAL.NEB NEB SCH ×4 (00:39→19:35)
[2018-09-17 07:40] VITALS: BP 106/58
[2018-09-17] MEDS: JEVITY 1.2 CAL 1,000 ML BOTTLE JT PRN (07:47)
[2018-09-17] MEDS: Z GUARD REMEDY 4 OZ OINT TP SCH ×2 (09:00→20:23)
[2018-09-17] MEDS: VITS A AND D/WHITE PET/LANOLIN 5 GM PACKET TP SCH ×2 (09:00→20:23)
[2018-09-17] MEDS: COD LIVER OIL/ZINC OXIDE 120 GM TUBE TP SCH ×2 (09:00→17:00)
[2018-09-17] MEDS: RANITIDINE GT SCH ×2 (09:31→20:23)
[2018-09-17] MEDS: POLYVINYL ALCOHOL 15 ML BOTTLE EACHEYE SCH ×4 (09:31→20:23)
[2018-09-17] MEDS: PROSOURCE / PROSTAT (PYXIS) 30 ML UDC JT SCH ×2 (09:32→17:00)
[2018-09-17] MEDS: LEVETIRACETAM SOL (5 ML) 100 MG/ML UDC GT SCH ×2 (09:32→20:23)
[2018-09-17] MEDS: HYDROGEN PEROXIDE 480 ML BOTTLE TP SCH ×2 (09:53→21:00)
[2018-09-17] MEDS: ERYTHROMYCIN STEARATE 250 MG TABLET GT SCH ×4 (12:00→23:54)
--- NOTE | 2018-09-17 16:16 | NUR ---
RT NOTES TRACH TUBE IN PLACE, PATENT, AND SECURED WITH TRACH TIE. ALARMS ON AND AUDIBLE. VENT PLUGGED IN TO RED OUTLET. SPO2 >92% MAINTAINED THROUGHOUT SHIFT. AMBU BAG AND BACK UP TRACH BY THE BEDSIDE. NO DISTRESS. Addendum: 09/17/18 at 1616 by EDNA CORTEZ RT Amended: Links added.
--- NOTE | 2018-09-17 16:26 | NUR ---
12 pm--TSERING attempted to reach Electronic News Gathering Editor, Carolina ext. [phone] to verify if Jolly Sherman [phone] Disability Determination Services has reached out to Carolina regarding Medical benefits being discontinued for case #[id number]. TSERING was not able to speak to Carolina but left a voicemail. pier worker called and left a voicemail for Jolly [phone] asking that Jolly fax over the authorization of release of information to TSERING. TSERING has yet to receive fax or hear back from Jolly. 4pm--Per sub-acute director, Yanira, TSERING sent Carolina an email detailing the situation for Carolina to follow-up as Carolina normally ensures that the patient's insurance is reinstated.
[2018-09-17] MEDS: POLYETHYLENE GLYCOL 3350 17 GM POWD.PACK GT SCH (22:13)
[2018-09-18] MEDS: ALBUTEROL FS 2.5 MG/3 ML VIAL.NEB NEB SCH ×4 (01:32→20:14)
[2018-09-18 04:50] VITALS: BP 108/67
[2018-09-18] MEDS: ERYTHROMYCIN STEARATE 250 MG TABLET GT SCH ×3 (05:10→23:43)
[2018-09-18 07:42] VITALS: BP 107/62
[2018-09-18] MEDS: RANITIDINE GT SCH ×2 (08:39→20:19)
[2018-09-18] MEDS: PROSOURCE / PROSTAT (PYXIS) 30 ML UDC JT SCH ×2 (08:39→17:00)
[2018-09-18] MEDS: POLYVINYL ALCOHOL 15 ML BOTTLE EACHEYE SCH ×3 (08:39→21:00)
[2018-09-18] MEDS: LEVETIRACETAM SOL (5 ML) 100 MG/ML UDC GT SCH ×2 (08:39→20:19)
[2018-09-18] MEDS: HYDROGEN PEROXIDE 480 ML BOTTLE TP SCH ×2 (09:00→20:14)
[2018-09-18] MEDS: Z GUARD REMEDY 4 OZ OINT TP SCH ×2 (09:00→20:20)
[2018-09-18] MEDS: COD LIVER OIL/ZINC OXIDE 120 GM TUBE TP SCH ×2 (09:00→17:00)
[2018-09-18] MEDS: VITS A AND D/WHITE PET/LANOLIN 5 GM PACKET TP SCH ×2 (09:00→20:20)
[2018-09-18] MEDS: JEVITY 1.2 CAL 1,000 ML BOTTLE JT PRN (13:10)
[2018-09-18 20:24] VITALS: BP 102/70
[2018-09-18] MEDS: POLYETHYLENE GLYCOL 3350 17 GM POWD.PACK GT SCH (22:33)
[2018-09-19] MEDS: ALBUTEROL FS 2.5 MG/3 ML VIAL.NEB NEB SCH ×4 (02:04→19:36)
[2018-09-19] MEDS: ERYTHROMYCIN STEARATE 250 MG TABLET GT SCH ×4 (05:17→23:47)
[2018-09-19 07:38] VITALS: BP 101/60
[2018-09-19] MEDS: LEVETIRACETAM SOL (5 ML) 100 MG/ML UDC GT SCH ×2 (08:49→21:28)
[2018-09-19] MEDS: RANITIDINE GT SCH ×2 (08:49→21:28)
[2018-09-19] MEDS: PROSOURCE / PROSTAT (PYXIS) 30 ML UDC JT SCH ×2 (08:49→17:55)
[2018-09-19] MEDS: POLYVINYL ALCOHOL 15 ML BOTTLE EACHEYE SCH ×4 (08:49→21:27)
[2018-09-19] MEDS: VITAMINS A AND D 56.7 GM TUBE TP SCH ×2 (09:00→21:28)
[2018-09-19] MEDS: VITS A AND D/WHITE PET/LANOLIN 5 GM PACKET TP SCH ×2 (09:00→21:28)
[2018-09-19] MEDS: Z GUARD REMEDY 4 OZ OINT TP SCH ×2 (09:00→21:28)
[2018-09-19] MEDS: COD LIVER OIL/ZINC OXIDE 120 GM TUBE TP SCH ×2 (09:00→17:57)
[2018-09-19] MEDS: HYDROGEN PEROXIDE 480 ML BOTTLE TP SCH ×2 (09:45→21:28)
[2018-09-19] MEDS: JEVITY 1.2 CAL 1,000 ML BOTTLE JT PRN (17:56)
--- NOTE | 2018-09-19 18:15 | NUR ---
Seen by SLIVER LAP MACHINE TENDER Mi. She ordered to use GT for both feeding and medications. She said there is no plan to change pt's JG-tube.
--- NOTE | 2018-09-19 21:00 | NUR ---
Seen by Germaine Mike no new orders.
[2018-09-19] MEDS: POLYETHYLENE GLYCOL 3350 17 GM POWD.PACK GT SCH (21:28)
[2018-09-20] MEDS: ALBUTEROL FS 2.5 MG/3 ML VIAL.NEB NEB SCH ×4 (01:54→19:28)
[2018-09-20 03:01] VITALS: BP 92/60
[2018-09-20] MEDS: ERYTHROMYCIN STEARATE 250 MG TABLET GT SCH ×4 (05:00→23:58)
[2018-09-20 07:52] VITALS: BP 136/81
[2018-09-20 07:56] VITALS: BP 110/69
[2018-09-20] MEDS: POLYVINYL ALCOHOL 15 ML BOTTLE EACHEYE SCH ×4 (08:45→20:45)
[2018-09-20] MEDS: RANITIDINE GT SCH ×2 (08:46→20:45)
[2018-09-20] MEDS: LEVETIRACETAM SOL (5 ML) 100 MG/ML UDC GT SCH ×2 (08:46→20:45)
[2018-09-20] MEDS: PROSOURCE / PROSTAT (PYXIS) 30 ML UDC JT SCH ×2 (08:49→17:00)
[2018-09-20] MEDS: VITS A AND D/WHITE PET/LANOLIN 5 GM PACKET TP SCH ×2 (08:49→20:45)
[2018-09-20] MEDS: Z GUARD REMEDY 4 OZ OINT TP SCH ×2 (08:49→20:45)
[2018-09-20] MEDS: HYDROGEN PEROXIDE 480 ML BOTTLE TP SCH ×2 (08:49→20:30)
[2018-09-20] MEDS: VITAMINS A AND D 56.7 GM TUBE TP SCH ×2 (08:49→20:45)
--- NOTE | 2018-09-20 09:30 | NUR ---
TSERING followed up with Jolly Sherman TEL:[phone] from Disability Determination Services to ensure that Jolly has received necessary information from [facility]. Per Jolly she got in contact with [facility] medical Records who agreed to send her the needed information. No action required. Jolly to get in contact with SW if Jolly requires additional paperwork. TSERING received visit from patients aunt, Paramjit who helped translate for pt.s conservator/father, Asuncion Mitchell [phone] who is Greek speaking only. Per [facility], the patient has lost benefits due to 5 year cap pertaining to immigration. Per [facility], family is applying for CAPI (Green Assistance Program for Immigrants) and a Cable Rigger is [phone] is assisting with application process. Per [facility], family was applying for SSI and Lana [phone] was assisting with application process. Per [facility], a person can only qualify for CAPI if they meet all other criteria for SSI except for immigration status. TSERING informed responsible libertarian that SW is available to support family and patient as needed. Addendum: 09/20/18 at 1105 by ARACELIS CAGLE TSERING also received letter of SSI explaining benefits being discontinued as of June 26, 2018 from [facility]. TSERING thanked [facility] for update and informed her that TSERING had spoken to Jolly, printing supplies sales representative. Catrina expressed understanding. TSERING will be available to support family as needed. correction:it is 7 year cap not 5 years.
--- NOTE | 2018-09-20 14:47 | NUR ---
INTERDISCIPLINARY PLAN OF CARE CONFERENCE was held today. The patients responsible democrat Sugey Mitchell [phone] could not attend not participate via phone conference. Dr. Cleveland and interdisciplinary team discussed the current plan of care in detail. Current orders as well as treatments and medications were reviewed. See other disciplines IDT notes for further details. Non new orders.
[2018-09-20] MEDS: JEVITY 1.2 CAL 1,000 ML BOTTLE JT PRN (17:05)
[2018-09-20 21:08] VITALS: BP 102/58
[2018-09-20] MEDS: POLYETHYLENE GLYCOL 3350 17 GM POWD.PACK GT SCH (22:08)
[2018-09-21] MEDS: ALBUTEROL FS 2.5 MG/3 ML VIAL.NEB NEB SCH ×4 (00:46→19:46)
[2018-09-21] MEDS: ERYTHROMYCIN STEARATE 250 MG TABLET GT SCH ×4 (05:22→23:28)
[2018-09-21 08:19] VITALS: BP 127/79
[2018-09-21] MEDS: VITS A AND D/WHITE PET/LANOLIN 5 GM PACKET TP SCH ×2 (08:49→20:14)
[2018-09-21] MEDS: RANITIDINE GT SCH ×2 (08:49→20:13)
[2018-09-21] MEDS: Z GUARD REMEDY 4 OZ OINT TP SCH ×2 (08:49→20:14)
[2018-09-21] MEDS: PROSOURCE / PROSTAT (PYXIS) 30 ML UDC JT SCH ×2 (08:49→17:14)
[2018-09-21] MEDS: POLYVINYL ALCOHOL 15 ML BOTTLE EACHEYE SCH ×4 (08:49→20:12)
[2018-09-21] MEDS: LEVETIRACETAM SOL (5 ML) 100 MG/ML UDC GT SCH ×2 (08:49→20:14)
[2018-09-21] MEDS: VITAMINS A AND D 56.7 GM TUBE TP SCH ×2 (08:49→20:14)
[2018-09-21] MEDS: HYDROGEN PEROXIDE 480 ML BOTTLE TP SCH ×2 (09:13→20:14)
[2018-09-21 20:00] VITALS: BP 102/58
[2018-09-21] MEDS: POLYETHYLENE GLYCOL 3350 17 GM POWD.PACK GT SCH (21:03)
[2018-09-21 21:04] VITALS: BP 110/108
[2018-09-22] MEDS: ALBUTEROL FS 2.5 MG/3 ML VIAL.NEB NEB SCH ×4 (00:38→19:50)
[2018-09-22] MEDS: ERYTHROMYCIN STEARATE 250 MG TABLET GT SCH ×3 (05:06→17:01)
[2018-09-22 07:34] VITALS: BP 102/62
[2018-09-22] MEDS: POLYVINYL ALCOHOL 15 ML BOTTLE EACHEYE SCH ×4 (09:06→20:05)
[2018-09-22] MEDS: RANITIDINE GT SCH ×2 (09:07→20:05)
[2018-09-22] MEDS: LEVETIRACETAM SOL (5 ML) 100 MG/ML UDC GT SCH ×2 (09:08→20:05)
[2018-09-22] MEDS: PROSOURCE / PROSTAT (PYXIS) 30 ML UDC JT SCH ×2 (09:08→17:01)
[2018-09-22] MEDS: HYDROGEN PEROXIDE 480 ML BOTTLE TP SCH ×2 (09:08→21:35)
[2018-09-22] MEDS: Z GUARD REMEDY 4 OZ OINT TP SCH ×2 (09:08→20:05)
[2018-09-22] MEDS: VITAMINS A AND D 56.7 GM TUBE TP SCH ×2 (09:09→20:05)
[2018-09-22] MEDS: VITS A AND D/WHITE PET/LANOLIN 5 GM PACKET TP SCH ×2 (09:09→20:05)
[2018-09-22] MEDS: JEVITY 1.2 CAL 1,000 ML BOTTLE JT PRN (17:04)
[2018-09-22 20:50] VITALS: BP 100/58
[2018-09-22] MEDS: POLYETHYLENE GLYCOL 3350 17 GM POWD.PACK GT SCH (21:09)
[2018-09-23] MEDS: ERYTHROMYCIN STEARATE 250 MG TABLET GT SCH ×4 (00:11→17:20)
[2018-09-23] MEDS: ALBUTEROL FS 2.5 MG/3 ML VIAL.NEB NEB SCH ×4 (01:33→19:44)
[2018-09-23 08:46] VITALS: BP 105/53
[2018-09-23] MEDS: HYDROGEN PEROXIDE 480 ML BOTTLE TP SCH ×2 (09:00→21:38)
[2018-09-23] MEDS: VITAMINS A AND D 56.7 GM TUBE TP SCH ×2 (09:00→21:39)
[2018-09-23] MEDS: VITS A AND D/WHITE PET/LANOLIN 5 GM PACKET TP SCH ×2 (09:00→21:38)
[2018-09-23] MEDS: Z GUARD REMEDY 4 OZ OINT TP SCH ×2 (09:00→21:38)
[2018-09-23] MEDS: RANITIDINE GT SCH ×2 (09:46→21:37)
[2018-09-23] MEDS: LEVETIRACETAM SOL (5 ML) 100 MG/ML UDC GT SCH ×2 (09:46→21:37)
[2018-09-23] MEDS: PROSOURCE / PROSTAT (PYXIS) 30 ML UDC JT SCH ×2 (09:46→17:20)
[2018-09-23] MEDS: POLYVINYL ALCOHOL 15 ML BOTTLE EACHEYE SCH ×4 (09:46→21:36)
[2018-09-23 11:33] VITALS: BP 86/42
[2018-09-23 20:35] VITALS: BP 116/58
[2018-09-23] MEDS: POLYETHYLENE GLYCOL 3350 17 GM POWD.PACK GT SCH (21:42)
[2018-09-24] MEDS: ERYTHROMYCIN STEARATE 250 MG TABLET GT SCH ×5 (00:22→23:44)
[2018-09-24] MEDS: ALBUTEROL FS 2.5 MG/3 ML VIAL.NEB NEB SCH ×4 (01:50→19:58)
[2018-09-24] MEDS: JEVITY 1.2 CAL 1,000 ML BOTTLE JT PRN (07:15)
[2018-09-24] MEDS: HYDROGEN PEROXIDE 480 ML BOTTLE TP SCH ×2 (09:00→19:58)
[2018-09-24] MEDS: POLYVINYL ALCOHOL 15 ML BOTTLE EACHEYE SCH ×4 (09:11→20:12)
[2018-09-24] MEDS: VITAMINS A AND D 56.7 GM TUBE TP SCH ×2 (09:11→20:12)
[2018-09-24] MEDS: PROSOURCE / PROSTAT (PYXIS) 30 ML UDC JT SCH ×2 (09:11→17:27)
[2018-09-24] MEDS: LEVETIRACETAM SOL (5 ML) 100 MG/ML UDC GT SCH ×2 (09:11→20:12)
[2018-09-24] MEDS: Z GUARD REMEDY 4 OZ OINT TP SCH ×2 (09:11→20:12)
[2018-09-24] MEDS: VITS A AND D/WHITE PET/LANOLIN 5 GM PACKET TP SCH ×2 (09:11→20:12)
[2018-09-24] MEDS: RANITIDINE GT SCH ×2 (09:11→20:12)
[2018-09-24 15:27] VITALS: BP 115/58
[2018-09-24 20:55] VITALS: BP 100/51
[2018-09-24] MEDS: POLYETHYLENE GLYCOL 3350 17 GM POWD.PACK GT SCH (21:45)
[2018-09-25] MEDS: ALBUTEROL FS 2.5 MG/3 ML VIAL.NEB NEB SCH ×4 (01:49→19:38)
[2018-09-25] MEDS: ERYTHROMYCIN STEARATE 250 MG TABLET GT SCH ×4 (05:04→23:21)
[2018-09-25] MEDS: JEVITY 1.2 CAL 1,000 ML BOTTLE JT PRN (05:04)
[2018-09-25 07:54] VITALS: BP 95/52
[2018-09-25] MEDS: LEVETIRACETAM SOL (5 ML) 100 MG/ML UDC GT SCH ×2 (08:47→20:16)
[2018-09-25] MEDS: RANITIDINE GT SCH ×2 (08:47→20:16)
[2018-09-25] MEDS: POLYVINYL ALCOHOL 15 ML BOTTLE EACHEYE SCH ×4 (08:47→20:16)
[2018-09-25] MEDS: PROSOURCE / PROSTAT (PYXIS) 30 ML UDC JT SCH ×2 (08:47→17:00)
[2018-09-25] MEDS: VITS A AND D/WHITE PET/LANOLIN 5 GM PACKET TP SCH ×2 (09:00→20:17)
[2018-09-25] MEDS: VITAMINS A AND D 56.7 GM TUBE TP SCH ×2 (09:00→20:17)
[2018-09-25] MEDS: Z GUARD REMEDY 4 OZ OINT TP SCH ×2 (09:00→20:17)
[2018-09-25] MEDS: HYDROGEN PEROXIDE 480 ML BOTTLE TP SCH ×2 (09:00→21:00)
--- NOTE | 2018-09-25 09:47 | NUR ---
RT PATIENT REC'D TRACHED ON ORDERED MODALITY TOLERATED WELL. PATIENT APPEARS COMFORTABLE AND IN NO DISTRESS AT THIS TIME. ALL SAFETY MEASURES CHECKED. WILL CONTINUE TO MONITOR CLOSELY. CONTINUE CURRENT PLAN OF RESP CARE. Addendum: 09/25/18 at 0947 by JOSE SALDAÑA RT Amended: Links added.
[2018-09-25 19:58] VITALS: BP 95/50
[2018-09-25] MEDS: POLYETHYLENE GLYCOL 3350 17 GM POWD.PACK GT SCH (22:08)
[2018-09-26] MEDS: ALBUTEROL FS 2.5 MG/3 ML VIAL.NEB NEB SCH ×4 (01:49→19:48)
[2018-09-26] MEDS: ERYTHROMYCIN STEARATE 250 MG TABLET GT SCH ×4 (05:35→23:58)
[2018-09-26 07:53] VITALS: BP 104/69
[2018-09-26] MEDS: HYDROGEN PEROXIDE 480 ML BOTTLE TP SCH ×2 (09:00→21:00)
[2018-09-26] MEDS: POLYVINYL ALCOHOL 15 ML BOTTLE EACHEYE SCH ×4 (09:05→21:00)
[2018-09-26] MEDS: Z GUARD REMEDY 4 OZ OINT TP SCH ×2 (09:06→21:00)
[2018-09-26] MEDS: PROSOURCE / PROSTAT (PYXIS) 30 ML UDC JT SCH ×2 (09:06→16:36)
[2018-09-26] MEDS: RANITIDINE GT SCH ×2 (09:06→21:00)
[2018-09-26] MEDS: VITS A AND D/WHITE PET/LANOLIN 5 GM PACKET TP SCH ×2 (09:06→21:00)
[2018-09-26] MEDS: LEVETIRACETAM SOL (5 ML) 100 MG/ML UDC GT SCH ×2 (09:06→21:00)
[2018-09-26] MEDS: VITAMINS A AND D 56.7 GM TUBE TP SCH ×2 (09:07→21:00)
[2018-09-26 20:27] VITALS: BP 101/53
[2018-09-26] MEDS: POLYETHYLENE GLYCOL 3350 17 GM POWD.PACK GT SCH (22:26)
[2018-09-27] MEDS: ALBUTEROL FS 2.5 MG/3 ML VIAL.NEB NEB SCH ×4 (01:17→20:09)
[2018-09-27] MEDS: JEVITY 1.2 CAL 1,000 ML BOTTLE JT PRN (04:51)
[2018-09-27] MEDS: ERYTHROMYCIN STEARATE 250 MG TABLET GT SCH ×3 (05:29→18:28)
[2018-09-27 08:44] VITALS: BP 106/57
[2018-09-27] MEDS: POLYVINYL ALCOHOL 15 ML BOTTLE EACHEYE SCH ×4 (08:51→21:05)
[2018-09-27] MEDS: RANITIDINE GT SCH ×2 (08:53→21:05)
[2018-09-27] MEDS: LEVETIRACETAM SOL (5 ML) 100 MG/ML UDC GT SCH ×2 (08:54→21:05)
[2018-09-27] MEDS: PROSOURCE / PROSTAT (PYXIS) 30 ML UDC JT SCH ×2 (08:55→17:01)
[2018-09-27] MEDS: Z GUARD REMEDY 4 OZ OINT TP SCH ×2 (09:00→21:05)
[2018-09-27] MEDS: VITAMINS A AND D 56.7 GM TUBE TP SCH ×2 (09:00→21:05)
[2018-09-27] MEDS: VITS A AND D/WHITE PET/LANOLIN 5 GM PACKET TP SCH ×2 (09:00→21:05)
[2018-09-27] MEDS: HYDROGEN PEROXIDE 480 ML BOTTLE TP SCH ×2 (09:25→20:35)
[2018-09-27 20:05] VITALS: BP 100/62
[2018-09-27] MEDS: POLYETHYLENE GLYCOL 3350 17 GM POWD.PACK GT SCH (21:08)
[2018-09-28] MEDS: ERYTHROMYCIN STEARATE 250 MG TABLET GT SCH ×4 (00:33→17:41)
[2018-09-28] MEDS: ALBUTEROL FS 2.5 MG/3 ML VIAL.NEB NEB SCH ×4 (01:40→19:53)
[2018-09-28] MEDS: JEVITY 1.2 CAL 1,000 ML BOTTLE JT PRN (03:06)
[2018-09-28 07:32] VITALS: BP 102/59
[2018-09-28] MEDS: LEVETIRACETAM SOL (5 ML) 100 MG/ML UDC GT SCH ×2 (09:00→21:22)
[2018-09-28] MEDS: HYDROGEN PEROXIDE 480 ML BOTTLE TP SCH ×2 (09:00→21:03)
[2018-09-28] MEDS: Z GUARD REMEDY 4 OZ OINT TP SCH ×2 (09:00→21:22)
[2018-09-28] MEDS: RANITIDINE GT SCH ×2 (09:00→21:22)
[2018-09-28] MEDS: VITS A AND D/WHITE PET/LANOLIN 5 GM PACKET TP SCH ×2 (09:00→21:22)
[2018-09-28] MEDS: POLYVINYL ALCOHOL 15 ML BOTTLE EACHEYE SCH ×4 (09:00→21:22)
[2018-09-28] MEDS: VITAMINS A AND D 56.7 GM TUBE TP SCH ×2 (09:00→21:23)
[2018-09-28] MEDS: PROSOURCE / PROSTAT (PYXIS) 30 ML UDC JT SCH ×2 (09:00→17:41)
[2018-09-28] MEDS: ACETAMINOPHEN 650 MG/20 ML UDC- SA PATIENTS-PAIN ONLY GT PRN (17:50)
[2018-09-28 20:31] VITALS: BP 97/56
[2018-09-28] MEDS: POLYETHYLENE GLYCOL 3350 17 GM POWD.PACK GT SCH (21:23)
[2018-09-29] MEDS: ERYTHROMYCIN STEARATE 250 MG TABLET GT SCH ×4 (00:19→18:44)
[2018-09-29] MEDS: ALBUTEROL FS 2.5 MG/3 ML VIAL.NEB NEB SCH ×4 (01:31→20:11)
[2018-09-29] MEDS: JEVITY 1.2 CAL 1,000 ML BOTTLE JT PRN (05:29)
[2018-09-29 07:46] VITALS: BP 106/64
[2018-09-29] MEDS: HYDROGEN PEROXIDE 480 ML BOTTLE TP SCH ×2 (09:00→20:11)
[2018-09-29] MEDS: LEVETIRACETAM SOL (5 ML) 100 MG/ML UDC GT SCH ×2 (09:49→20:34)
[2018-09-29] MEDS: RANITIDINE GT SCH ×2 (09:49→20:33)
[2018-09-29] MEDS: POLYVINYL ALCOHOL 15 ML BOTTLE EACHEYE SCH ×4 (09:49→20:32)
[2018-09-29] MEDS: Z GUARD REMEDY 4 OZ OINT TP SCH ×2 (09:49→20:34)
[2018-09-29] MEDS: PROSOURCE / PROSTAT (PYXIS) 30 ML UDC JT SCH ×2 (09:49→16:52)
[2018-09-29] MEDS: VITAMINS A AND D 56.7 GM TUBE TP SCH ×2 (09:50→20:34)
[2018-09-29] MEDS: VITS A AND D/WHITE PET/LANOLIN 5 GM PACKET TP SCH ×2 (09:50→20:34)
--- NOTE | 2018-09-29 14:00 | NUR ---
Up in brennen chair x 2hours, put him by the window with his father by his side. Patient initially was crying but he calm down after a few minutes. No s/s of SOB, patient transferred in and out of bed using Amauri lift with 2 person assist.
[2018-09-29 20:30] VITALS: BP 114/63
[2018-09-29] MEDS: POLYETHYLENE GLYCOL 3350 17 GM POWD.PACK GT SCH (21:25)
--- NOTE | 2018-09-29 23:26 | NUR ---
PATIENT RECEIVED ON TRACH TO VENT WITH SETTINGS OF AC 14, 450 VT, 40%, +0. SUCTIONED WITH LAVAGE FOR MINIMAL, THIN, WHITE SECRETIONS. GIVEN IN-LINE TREATMENTS WITH NO ADVERSE REACTIONS. AMBU BAG AT BEDSIDE. VENT AND PULSE OXIMETER ALARMS AUDIBLE AND VISIBLE. Addendum: 09/29/18 at 2328 by MALLY NGUYEN RT Amended: Links added.
[2018-09-30] MEDS: ERYTHROMYCIN STEARATE 250 MG TABLET GT SCH ×4 (00:46→18:00)
[2018-09-30] MEDS: ALBUTEROL FS 2.5 MG/3 ML VIAL.NEB NEB SCH ×4 (01:49→20:00)
[2018-09-30 08:37] VITALS: BP 121/57
[2018-09-30] MEDS: HYDROGEN PEROXIDE 480 ML BOTTLE TP SCH ×2 (09:00→20:00)
[2018-09-30] MEDS: POLYVINYL ALCOHOL 15 ML BOTTLE EACHEYE SCH ×4 (09:48→20:45)
[2018-09-30] MEDS: PROSOURCE / PROSTAT (PYXIS) 30 ML UDC JT SCH ×2 (09:49→16:51)
[2018-09-30] MEDS: VITS A AND D/WHITE PET/LANOLIN 5 GM PACKET TP SCH ×2 (09:49→20:47)
[2018-09-30] MEDS: RANITIDINE GT SCH ×2 (09:49→20:46)
[2018-09-30] MEDS: Z GUARD REMEDY 4 OZ OINT TP SCH ×2 (09:49→20:46)
[2018-09-30] MEDS: LEVETIRACETAM SOL (5 ML) 100 MG/ML UDC GT SCH ×2 (09:49→20:46)
[2018-09-30] MEDS: VITAMINS A AND D 56.7 GM TUBE TP SCH ×2 (09:49→20:47)
--- NOTE | 2018-09-30 16:12 | NUR ---
Medi-lucia Benefits: TSERING received phone call from Disability Determination Services retail wireless sales representative, Jolly Sherman [phone]. Per Jolly, she contacted [facility] records as she requires documents that verify the patients medical condition to hopefully re-instate his Medi-Lucia Benefits. Per Jolly she faxed the release of information form signed by the pt.s conservator, Asuncion Mitchell [phone] to medical records and they allegedly rejected it because the name on the form doesnt match their records. TSERING took down Ayesha fax number [phone]. TSERING called [facility] medical records and spoke with Johanna to verify why they rejected to provide Jolly the residents medical records. Per Johanna, Ayesha request was sent to [facility] to be authorized but the request was written in the wrong size font. However, [facility] records state that [facility] is to provide Jolly with the information requested tomorrow. Per Johanna, if information is not released tomorrow, Jolly may follow-up with [facility] at [phone]. TSERING called Jolly, call went to voicemail and TSERING communicated new information. TSERING left [employer] # in voicemail and asked Jolly to send the release of information authorization form to TSERING at [phone] if she would like TSERING to provide any patient information.
[2018-09-30 19:57] VITALS: BP 125/85
[2018-09-30] MEDS: POLYETHYLENE GLYCOL 3350 17 GM POWD.PACK GT SCH (21:21)
[2018-10-01] MEDS: ERYTHROMYCIN STEARATE 250 MG TABLET GT SCH ×4 (00:39→18:04)
[2018-10-01] MEDS: ALBUTEROL FS 2.5 MG/3 ML VIAL.NEB NEB SCH ×4 (01:32→20:19)
[2018-10-01] MEDS: HYDROGEN PEROXIDE 480 ML BOTTLE TP SCH ×2 (09:00→21:00)
[2018-10-01] MEDS: LEVETIRACETAM SOL (5 ML) 100 MG/ML UDC GT SCH ×2 (09:52→20:26)
[2018-10-01] MEDS: POLYVINYL ALCOHOL 15 ML BOTTLE EACHEYE SCH ×4 (09:52→20:25)
[2018-10-01] MEDS: RANITIDINE GT SCH ×2 (09:52→20:26)
[2018-10-01] MEDS: PROSOURCE / PROSTAT (PYXIS) 30 ML UDC JT SCH ×2 (09:52→17:00)
[2018-10-01] MEDS: VITAMINS A AND D 56.7 GM TUBE TP SCH ×2 (09:53→20:26)
[2018-10-01] MEDS: VITS A AND D/WHITE PET/LANOLIN 5 GM PACKET TP SCH ×2 (09:53→20:26)
[2018-10-01] MEDS: Z GUARD REMEDY 4 OZ OINT TP SCH ×2 (09:53→20:26)
[2018-10-01 10:00] VITALS: BP 112/64
--- NOTE | 2018-10-01 12:19 | NUR ---
Invitation to Family Support Group: SW called patients responsible green party / Sugey Manzanaresvirginia [phone] to invite them to attend the family support group being held tomorrow October 02, 2018 from 11 am-12pm in the old admin. conference room in the first floor. Sugey expressed contentment and stated she would try to make it. No further action required.
[2018-10-01] MEDS: JEVITY 1.2 CAL 1,000 ML BOTTLE JT PRN (15:34)
[2018-10-01 20:05] VITALS: BP 108/69
[2018-10-01] MEDS: POLYETHYLENE GLYCOL 3350 17 GM POWD.PACK GT SCH (21:27)
[2018-10-02] MEDS: ERYTHROMYCIN STEARATE 250 MG TABLET GT SCH ×4 (00:26→17:00)
[2018-10-02] MEDS: ALBUTEROL FS 2.5 MG/3 ML VIAL.NEB NEB SCH ×4 (02:02→19:57)
[2018-10-02 07:49] VITALS: BP 98/61
[2018-10-02] MEDS: PROSOURCE / PROSTAT (PYXIS) 30 ML UDC JT SCH ×2 (08:25→17:00)
[2018-10-02] MEDS: HYDROGEN PEROXIDE 480 ML BOTTLE TP SCH ×2 (08:25→21:08)
[2018-10-02] MEDS: Z GUARD REMEDY 4 OZ OINT TP SCH ×2 (08:25→21:14)
[2018-10-02] MEDS: POLYVINYL ALCOHOL 15 ML BOTTLE EACHEYE SCH ×4 (08:25→21:13)
[2018-10-02] MEDS: LEVETIRACETAM SOL (5 ML) 100 MG/ML UDC GT SCH ×2 (08:25→21:14)
[2018-10-02] MEDS: RANITIDINE GT SCH ×2 (08:25→21:13)
[2018-10-02] MEDS: VITAMINS A AND D 56.7 GM TUBE TP SCH ×2 (08:28→21:14)
[2018-10-02] MEDS: VITS A AND D/WHITE PET/LANOLIN 5 GM PACKET TP SCH ×2 (08:28→21:14)
[2018-10-02] MEDS: JEVITY 1.2 CAL 1,000 ML BOTTLE JT PRN (18:55)
[2018-10-02 20:38] VITALS: BP 98/68
[2018-10-02] MEDS: POLYETHYLENE GLYCOL 3350 17 GM POWD.PACK GT SCH (21:14)
[2018-10-03] MEDS: ERYTHROMYCIN STEARATE 250 MG TABLET GT SCH ×4 (00:15→17:49)
[2018-10-03] MEDS: ALBUTEROL FS 2.5 MG/3 ML VIAL.NEB NEB SCH ×4 (01:37→19:59)
[2018-10-03 07:30] VITALS: BP 94/58
[2018-10-03] MEDS: POLYVINYL ALCOHOL 15 ML BOTTLE EACHEYE SCH ×4 (08:53→21:20)
[2018-10-03] MEDS: LEVETIRACETAM SOL (5 ML) 100 MG/ML UDC GT SCH ×2 (08:53→21:21)
[2018-10-03] MEDS: PROSOURCE / PROSTAT (PYXIS) 30 ML UDC JT SCH ×2 (08:53→17:49)
[2018-10-03] MEDS: RANITIDINE GT SCH ×2 (08:53→21:21)
[2018-10-03] MEDS: Z GUARD REMEDY 4 OZ OINT TP SCH ×3 (09:00→21:21)
[2018-10-03] MEDS: HYDROGEN PEROXIDE 480 ML BOTTLE TP SCH ×2 (09:00→21:00)
--- NOTE | 2018-10-03 10:40 | NUR ---
Pt was noted with MASD on the buttocks. Received order to apply Z-guard cream q shift x 14 days then re-evaluate. Notified aunt.
[2018-10-03] MEDS: JEVITY 1.2 CAL 1,000 ML BOTTLE JT PRN (13:02)
[2018-10-03 20:54] VITALS: BP 108/68
[2018-10-03] MEDS: POLYETHYLENE GLYCOL 3350 17 GM POWD.PACK GT SCH (21:21)
[2018-10-03] MEDS: VITAMINS A AND D 56.7 GM TUBE TP SCH (21:21)
[2018-10-04] MEDS: ERYTHROMYCIN STEARATE 250 MG TABLET GT SCH ×4 (00:18→17:44)
[2018-10-04] MEDS: ALBUTEROL FS 2.5 MG/3 ML VIAL.NEB NEB SCH ×4 (00:37→20:13)
[2018-10-04 07:49] VITALS: BP 104/56
[2018-10-04] MEDS: VITAMINS A AND D 56.7 GM TUBE TP SCH ×2 (09:00→21:01)
[2018-10-04] MEDS: Z GUARD REMEDY 4 OZ OINT TP SCH ×4 (09:00→21:00)
[2018-10-04] MEDS: HYDROGEN PEROXIDE 480 ML BOTTLE TP SCH ×2 (09:00→21:00)
[2018-10-04] MEDS: RANITIDINE GT SCH ×2 (09:15→21:00)
[2018-10-04] MEDS: LEVETIRACETAM SOL (5 ML) 100 MG/ML UDC GT SCH ×2 (09:15→21:00)
[2018-10-04] MEDS: POLYVINYL ALCOHOL 15 ML BOTTLE EACHEYE SCH ×4 (09:15→21:00)
[2018-10-04] MEDS: PROSOURCE / PROSTAT (PYXIS) 30 ML UDC JT SCH ×2 (09:16→17:44)
[2018-10-04 20:48] VITALS: BP 116/67
[2018-10-04] MEDS: POLYETHYLENE GLYCOL 3350 17 GM POWD.PACK GT SCH (21:01)
[2018-10-05] MEDS: ERYTHROMYCIN STEARATE 250 MG TABLET GT SCH ×4 (00:10→17:54)
[2018-10-05] MEDS: ALBUTEROL FS 2.5 MG/3 ML VIAL.NEB NEB SCH ×4 (02:00→19:48)
[2018-10-05 07:26] VITALS: BP 103/67
[2018-10-05] MEDS: PROSOURCE / PROSTAT (PYXIS) 30 ML UDC JT SCH ×2 (09:00→17:54)
[2018-10-05] MEDS: POLYVINYL ALCOHOL 15 ML BOTTLE EACHEYE SCH ×4 (09:00→21:30)
[2018-10-05] MEDS: RANITIDINE GT SCH ×2 (09:00→21:30)
[2018-10-05] MEDS: Z GUARD REMEDY 4 OZ OINT TP SCH ×4 (09:00→21:45)
[2018-10-05] MEDS: VITAMINS A AND D 56.7 GM TUBE TP SCH ×2 (09:00→21:45)
[2018-10-05] MEDS: LEVETIRACETAM SOL (5 ML) 100 MG/ML UDC GT SCH ×2 (09:00→21:30)
[2018-10-05] MEDS: HYDROGEN PEROXIDE 480 ML BOTTLE TP SCH ×2 (09:00→21:05)
[2018-10-05] MEDS: JEVITY 1.2 CAL 1,000 ML BOTTLE JT PRN (15:13)
[2018-10-05 20:17] VITALS: BP 107/58
[2018-10-05] MEDS: POLYETHYLENE GLYCOL 3350 17 GM POWD.PACK GT SCH (21:45)
[2018-10-06] MEDS: ERYTHROMYCIN STEARATE 250 MG TABLET GT SCH ×5 (00:06→23:08)
[2018-10-06] MEDS: ALBUTEROL FS 2.5 MG/3 ML VIAL.NEB NEB SCH ×4 (01:56→19:52)
[2018-10-06 07:41] VITALS: BP 104/69
[2018-10-06] MEDS: HYDROGEN PEROXIDE 480 ML BOTTLE TP SCH ×2 (09:00→20:06)
[2018-10-06] MEDS: LEVETIRACETAM SOL (5 ML) 100 MG/ML UDC GT SCH ×2 (09:46→20:06)
[2018-10-06] MEDS: RANITIDINE GT SCH ×2 (09:46→20:05)
[2018-10-06] MEDS: PROSOURCE / PROSTAT (PYXIS) 30 ML UDC JT SCH ×2 (09:46→17:43)
[2018-10-06] MEDS: POLYVINYL ALCOHOL 15 ML BOTTLE EACHEYE SCH ×4 (09:46→20:05)
[2018-10-06] MEDS: Z GUARD REMEDY 4 OZ OINT TP SCH ×4 (09:46→20:06)
[2018-10-06] MEDS: VITAMINS A AND D 56.7 GM TUBE TP SCH ×2 (09:47→20:06)
[2018-10-06] MEDS: JEVITY 1.2 CAL 1,000 ML BOTTLE JT PRN (15:42)
--- NOTE | 2018-10-06 16:31 | NUR ---
RT NOTE PT REMAINS MECHANICALLY VENTILATED VIA CUFFED TRACHEOSTOMY TUBE. CUFF INFLATED. TRACH TUBE MIDLINE AND SECURE. VENTILATOR SETTINGS PRESCRIBED. ALARMS SET PER PROTOCOL AND AUDIBLE. VENT PLUGGED IN TO RED OUTLET. AMBU BAG AT BED SIDE. NO DISTRESS NOTED. Addendum: 10/06/18 at 1632 by GLENIS MUNIZ RT Amended: Links added.
[2018-10-06 20:00] VITALS: BP_SYST 101; BP_SYST 128; BP_DIAS 58; BP_DIAS 80
[2018-10-06 20:25] VITALS: BP 128/80
[2018-10-06] MEDS: POLYETHYLENE GLYCOL 3350 17 GM POWD.PACK GT SCH (21:35)
[2018-10-07] MEDS: ALBUTEROL FS 2.5 MG/3 ML VIAL.NEB NEB SCH ×4 (01:40→20:26)
[2018-10-07] MEDS: ERYTHROMYCIN STEARATE 250 MG TABLET GT SCH ×3 (05:13→18:18)
[2018-10-07 07:47] VITALS: BP_SYST 102; BP_SYST 130; BP_DIAS 57
[2018-10-07] MEDS: POLYVINYL ALCOHOL 15 ML BOTTLE EACHEYE SCH ×4 (08:52→20:54)
[2018-10-07] MEDS: LEVETIRACETAM SOL (5 ML) 100 MG/ML UDC GT SCH ×2 (08:54→20:56)
[2018-10-07] MEDS: RANITIDINE GT SCH ×2 (08:54→20:56)
[2018-10-07] MEDS: PROSOURCE / PROSTAT (PYXIS) 30 ML UDC JT SCH ×2 (08:54→17:00)
[2018-10-07] MEDS: Z GUARD REMEDY 4 OZ OINT TP SCH ×4 (09:00→20:56)
[2018-10-07] MEDS: HYDROGEN PEROXIDE 480 ML BOTTLE TP SCH ×2 (09:00→20:26)
[2018-10-07] MEDS: VITAMINS A AND D 56.7 GM TUBE TP SCH ×2 (09:00→20:56)
[2018-10-07] MEDS: JEVITY 1.2 CAL 1,000 ML BOTTLE JT PRN (12:29)
[2018-10-07 20:04] VITALS: BP 98/62
[2018-10-07] MEDS: POLYETHYLENE GLYCOL 3350 17 GM POWD.PACK GT SCH (21:49)
[2018-10-08] MEDS: ERYTHROMYCIN STEARATE 250 MG TABLET GT SCH ×4 (00:23→17:59)
[2018-10-08] MEDS: ALBUTEROL FS 2.5 MG/3 ML VIAL.NEB NEB SCH ×4 (02:21→20:01)
[2018-10-08 07:41] VITALS: BP 110/67
[2018-10-08] MEDS: HYDROGEN PEROXIDE 480 ML BOTTLE TP SCH ×2 (08:38→20:01)
[2018-10-08] MEDS: PROSOURCE / PROSTAT (PYXIS) 30 ML UDC JT SCH ×2 (08:50→17:59)
[2018-10-08] MEDS: LEVETIRACETAM SOL (5 ML) 100 MG/ML UDC GT SCH ×2 (08:50→20:37)
[2018-10-08] MEDS: RANITIDINE GT SCH ×2 (08:50→20:36)
[2018-10-08] MEDS: POLYVINYL ALCOHOL 15 ML BOTTLE EACHEYE SCH ×4 (08:50→20:35)
[2018-10-08] MEDS: Z GUARD REMEDY 4 OZ OINT TP SCH ×4 (09:00→20:37)
[2018-10-08] MEDS: VITAMINS A AND D 56.7 GM TUBE TP SCH ×2 (09:00→20:37)
--- NOTE | 2018-10-08 15:11 | NUR ---
IDT Invitation to Family: TSERING communicated pt.s aunt, Sugey Mitchell [phone] that IDT meeting will be taking place this October 11 from 12:30-1:30pm in the SA activities room. Sugey was agreeable to plan.
--- NOTE | 2018-10-08 16:29 | NUR ---
TSERING followed-up and called Jolly Sherman [phone] from Disability Determination services to follow -up and ensure that Jolly has received the needed information to reinstate the pt.s Medi-Ovidio Benefits. Call went to voicemail but TSERING left contact information.
[2018-10-08] MEDS: JEVITY 1.2 CAL 1,000 ML BOTTLE JT PRN (17:59)
[2018-10-08 20:12] VITALS: BP 98/54
[2018-10-08] MEDS: POLYETHYLENE GLYCOL 3350 17 GM POWD.PACK GT SCH (21:22)
[2018-10-09] MEDS: ERYTHROMYCIN STEARATE 250 MG TABLET GT SCH ×4 (00:31→17:02)
[2018-10-09] MEDS: ALBUTEROL FS 2.5 MG/3 ML VIAL.NEB NEB SCH ×4 (01:30→20:11)
[2018-10-09 07:46] VITALS: BP 116/71
[2018-10-09] MEDS: HYDROGEN PEROXIDE 480 ML BOTTLE TP SCH ×2 (09:00→20:11)
[2018-10-09] MEDS: POLYVINYL ALCOHOL 15 ML BOTTLE EACHEYE SCH ×4 (09:14→21:20)
[2018-10-09] MEDS: RANITIDINE GT SCH ×2 (09:14→21:20)
[2018-10-09] MEDS: VITAMINS A AND D 56.7 GM TUBE TP SCH ×2 (09:14→21:27)
[2018-10-09] MEDS: Z GUARD REMEDY 4 OZ OINT TP SCH ×4 (09:14→21:21)
[2018-10-09] MEDS: LEVETIRACETAM SOL (5 ML) 100 MG/ML UDC GT SCH ×2 (09:14→21:20)
[2018-10-09] MEDS: PROSOURCE / PROSTAT (PYXIS) 30 ML UDC JT SCH ×2 (09:14→17:02)
--- NOTE | 2018-10-09 13:00 | NUR ---
Seen and examined by Germaine Mike, no new order given.
[2018-10-09] MEDS: JEVITY 1.2 CAL 1,000 ML BOTTLE JT PRN (13:55)
--- NOTE | 2018-10-09 20:12 | NUR ---
RT NOTE: RECEIVED TRACH PT ON [facility] VENT ON NOTED SETTINGS PER MD ORDERS. TRACH IS PATENT AND SECURED. TRACH CARE DONE. RAT CULTURIST DONE. Q6 BREATHING TX GIVEN WITH NO ADVERSE REACTION NOTED. SX DONE PRN. VENT PLUGGED INTO RED OUTLET. ALARMS ON AND AUDIBLE. ELBERTU BAG @ BEDSIDE. NO RESP DISTRESS AT THIS TIME. WILL CONT TO MONITOR PT. Addendum: 10/10/18 at 0311 by CIRILO LOZOYA RT Amended: Links added.
[2018-10-09 20:17] VITALS: BP 102/58
[2018-10-09] MEDS: POLYETHYLENE GLYCOL 3350 17 GM POWD.PACK GT SCH (21:27)
[2018-10-10] MEDS: ERYTHROMYCIN STEARATE 250 MG TABLET GT SCH ×5 (00:10→23:48)
[2018-10-10] MEDS: ALBUTEROL FS 2.5 MG/3 ML VIAL.NEB NEB SCH ×4 (02:04→20:17)
[2018-10-10 07:48] VITALS: BP 100/59
[2018-10-10] MEDS: PROSOURCE / PROSTAT (PYXIS) 30 ML UDC JT SCH ×2 (08:34→17:00)
[2018-10-10] MEDS: RANITIDINE GT SCH ×2 (08:34→21:12)
[2018-10-10] MEDS: LEVETIRACETAM SOL (5 ML) 100 MG/ML UDC GT SCH ×2 (08:34→21:12)
[2018-10-10] MEDS: POLYVINYL ALCOHOL 15 ML BOTTLE EACHEYE SCH ×4 (08:34→21:12)
[2018-10-10] MEDS: Z GUARD REMEDY 4 OZ OINT TP SCH ×4 (09:00→21:12)
[2018-10-10] MEDS: HYDROGEN PEROXIDE 480 ML BOTTLE TP SCH ×2 (09:00→20:17)
[2018-10-10] MEDS: VITAMINS A AND D 56.7 GM TUBE TP SCH ×2 (09:00→21:12)
[2018-10-10] MEDS: JEVITY 1.2 CAL 1,000 ML BOTTLE JT PRN (15:13)
[2018-10-10 19:48] VITALS: BP 102/66
[2018-10-10] MEDS: POLYETHYLENE GLYCOL 3350 17 GM POWD.PACK GT SCH (21:12)
--- NOTE | 2018-10-10 21:12 | NUR ---
Seen and examined by Germaine JIN.
[2018-10-11] MEDS: ALBUTEROL FS 2.5 MG/3 ML VIAL.NEB NEB SCH ×4 (01:00→20:14)
--- NOTE | 2018-10-11 04:31 | NUR ---
PT RCVD TRACH'D ON MECHANICAL VENT WITH CHARTED SETTINGS. PT BRAULIO TX WELL. SX DONE. PT TRACH IS PATENT AND SECURE. VENT ALARMS APPEAR TO BE FUNCTIONING PROPERLY. VENT PLUGGED INTO RED OUTLET. AMBU BAG AT BEDSIDE. Addendum: 10/11/18 at 0432 by STANFORD PETERS RT Amended: Links added.
[2018-10-11] MEDS: ERYTHROMYCIN STEARATE 250 MG TABLET GT SCH ×4 (05:45→23:55)
[2018-10-11] MEDS: LEVETIRACETAM SOL (5 ML) 100 MG/ML UDC GT SCH ×2 (08:21→20:45)
[2018-10-11] MEDS: PROSOURCE / PROSTAT (PYXIS) 30 ML UDC JT SCH ×2 (08:21→17:00)
[2018-10-11] MEDS: POLYVINYL ALCOHOL 15 ML BOTTLE EACHEYE SCH ×4 (08:21→20:50)
[2018-10-11] MEDS: RANITIDINE GT SCH ×2 (08:21→20:45)
[2018-10-11] MEDS: VITAMINS A AND D 56.7 GM TUBE TP SCH ×2 (09:00→20:46)
[2018-10-11] MEDS: HYDROGEN PEROXIDE 480 ML BOTTLE TP SCH ×2 (09:00→20:14)
[2018-10-11] MEDS: Z GUARD REMEDY 4 OZ OINT TP SCH ×4 (09:00→20:46)
--- NOTE | 2018-10-11 09:06 | NUR ---
Disability Determination Services: TSERING followed-up with Disability Determination Services sales representative business courses, Jolly Sherman [phone] to determine if she had received the documents she requested from [facility] Medi-Ovidio records that verify the patients medical condition to hopefully re-instate his Medi-Ovidio Benefits. Per Jolly she has yet to receive the documents. Per Jolly, the case #[id number]. TSERING requested Jolly to fax the Authorization for release of information signed by the pt.s conservator to TSERING at [phone] so that TSERING could provide documents. Jolly was agreeable to plan. TSERING received the Authorization for release of information signed by the pt.s conservator. TSERING faxed a facesheet, h&p, and progress notes and medication list to Jolly from Disability Determination Services at [phone]. TSERING communicated to motel food service supervisor, Carolina ext#[phone].
[2018-10-11] MEDS: JEVITY 1.2 CAL 1,000 ML BOTTLE JT PRN (14:53)
[2018-10-11 20:06] VITALS: BP 101/60
[2018-10-11] MEDS: POLYETHYLENE GLYCOL 3350 17 GM POWD.PACK GT SCH (22:28)
[2018-10-12] MEDS: ALBUTEROL FS 2.5 MG/3 ML VIAL.NEB NEB SCH ×4 (02:11→19:57)
[2018-10-12] MEDS: ERYTHROMYCIN STEARATE 250 MG TABLET GT SCH ×4 (06:26→23:34)
[2018-10-12 07:39] VITALS: BP 108/69
[2018-10-12] MEDS: LEVETIRACETAM SOL (5 ML) 100 MG/ML UDC GT SCH ×2 (08:38→20:59)
[2018-10-12] MEDS: PROSOURCE / PROSTAT (PYXIS) 30 ML UDC JT SCH ×2 (08:38→17:56)
[2018-10-12] MEDS: POLYVINYL ALCOHOL 15 ML BOTTLE EACHEYE SCH ×4 (08:38→20:58)
[2018-10-12] MEDS: RANITIDINE GT SCH ×2 (08:38→20:59)
[2018-10-12] MEDS: Z GUARD REMEDY 4 OZ OINT TP SCH ×4 (09:00→20:59)
[2018-10-12] MEDS: HYDROGEN PEROXIDE 480 ML BOTTLE TP SCH ×2 (09:00→19:58)
[2018-10-12] MEDS: VITAMINS A AND D 56.7 GM TUBE TP SCH ×2 (09:00→20:59)
[2018-10-12] MEDS: JEVITY 1.2 CAL 1,000 ML BOTTLE JT PRN (12:56)
[2018-10-12 21:00] VITALS: BP 103/58
[2018-10-12] MEDS: POLYETHYLENE GLYCOL 3350 17 GM POWD.PACK GT SCH (21:00)
[2018-10-13] MEDS: ALBUTEROL FS 2.5 MG/3 ML VIAL.NEB NEB SCH ×4 (02:08→19:57)
[2018-10-13] MEDS: ERYTHROMYCIN STEARATE 250 MG TABLET GT SCH ×4 (05:11→23:09)
[2018-10-13 07:43] VITALS: BP 98/68
[2018-10-13] MEDS: HYDROGEN PEROXIDE 480 ML BOTTLE TP SCH ×2 (08:10→21:34)
[2018-10-13] MEDS: LEVETIRACETAM SOL (5 ML) 100 MG/ML UDC GT SCH ×2 (08:19→21:34)
[2018-10-13] MEDS: Z GUARD REMEDY 4 OZ OINT TP SCH ×4 (08:19→21:34)
[2018-10-13] MEDS: POLYVINYL ALCOHOL 15 ML BOTTLE EACHEYE SCH ×4 (08:19→21:33)
[2018-10-13] MEDS: RANITIDINE GT SCH ×2 (08:19→21:34)
[2018-10-13] MEDS: VITAMINS A AND D 56.7 GM TUBE TP SCH ×2 (08:19→21:34)
[2018-10-13] MEDS: PROSOURCE / PROSTAT (PYXIS) 30 ML UDC JT SCH ×2 (08:19→17:58)
[2018-10-13] MEDS: JEVITY 1.2 CAL 1,000 ML BOTTLE JT PRN (12:08)
[2018-10-13 20:38] VITALS: BP 98/56
[2018-10-13] MEDS: POLYETHYLENE GLYCOL 3350 17 GM POWD.PACK GT SCH (21:34)
[2018-10-14] MEDS: ALBUTEROL FS 2.5 MG/3 ML VIAL.NEB NEB SCH ×4 (01:29→20:09)
[2018-10-14] MEDS: ERYTHROMYCIN STEARATE 250 MG TABLET GT SCH ×4 (05:44→23:40)
[2018-10-14] MEDS: POLYVINYL ALCOHOL 15 ML BOTTLE EACHEYE SCH ×4 (08:36→20:06)
[2018-10-14] MEDS: RANITIDINE GT SCH ×2 (08:37→20:07)
[2018-10-14] MEDS: PROSOURCE / PROSTAT (PYXIS) 30 ML UDC JT SCH ×2 (08:37→17:26)
[2018-10-14] MEDS: LEVETIRACETAM SOL (5 ML) 100 MG/ML UDC GT SCH ×2 (08:37→20:07)
[2018-10-14] MEDS: VITAMINS A AND D 56.7 GM TUBE TP SCH ×2 (09:00→20:07)
[2018-10-14] MEDS: HYDROGEN PEROXIDE 480 ML BOTTLE TP SCH ×2 (09:00→20:09)
[2018-10-14] MEDS: Z GUARD REMEDY 4 OZ OINT TP SCH ×4 (09:00→20:07)
[2018-10-14 10:27] VITALS: BP 133/63
[2018-10-14] MEDS: JEVITY 1.2 CAL 1,000 ML BOTTLE JT PRN (12:52)
[2018-10-14 21:08] VITALS: BP 95/64
[2018-10-14] MEDS: POLYETHYLENE GLYCOL 3350 17 GM POWD.PACK GT SCH (22:16)
[2018-10-15] MEDS: ALBUTEROL FS 2.5 MG/3 ML VIAL.NEB NEB SCH ×4 (02:06→19:37)
[2018-10-15] MEDS: ERYTHROMYCIN STEARATE 250 MG TABLET GT SCH ×3 (05:08→17:39)
[2018-10-15] MEDS: POLYVINYL ALCOHOL 15 ML BOTTLE EACHEYE SCH ×4 (08:02→20:10)
[2018-10-15] MEDS: RANITIDINE GT SCH ×2 (08:03→20:10)
[2018-10-15] MEDS: LEVETIRACETAM SOL (5 ML) 100 MG/ML UDC GT SCH ×2 (08:03→20:10)
[2018-10-15] MEDS: PROSOURCE / PROSTAT (PYXIS) 30 ML UDC JT SCH ×2 (08:03→17:39)
[2018-10-15 08:24] VITALS: BP 106/61
[2018-10-15] MEDS: VITAMINS A AND D 56.7 GM TUBE TP SCH ×2 (09:00→20:11)
[2018-10-15] MEDS: HYDROGEN PEROXIDE 480 ML BOTTLE TP SCH ×2 (09:00→19:37)
[2018-10-15] MEDS: Z GUARD REMEDY 4 OZ OINT TP SCH ×4 (09:00→20:11)
[2018-10-15] MEDS: JEVITY 1.2 CAL 1,000 ML BOTTLE JT PRN (14:06)
[2018-10-15 20:24] VITALS: BP 114/55
[2018-10-15 20:27] VITALS: BP 115/71
[2018-10-15] MEDS: POLYETHYLENE GLYCOL 3350 17 GM POWD.PACK GT SCH (22:12)
[2018-10-16] MEDS: ERYTHROMYCIN STEARATE 250 MG TABLET GT SCH ×5 (00:41→23:50)
[2018-10-16] MEDS: ALBUTEROL FS 2.5 MG/3 ML VIAL.NEB NEB SCH ×4 (01:30→20:13)
[2018-10-16 07:39] VITALS: BP 104/64
[2018-10-16] MEDS: HYDROGEN PEROXIDE 480 ML BOTTLE TP SCH ×2 (09:00→20:13)
[2018-10-16] MEDS: RANITIDINE GT SCH ×2 (09:37→20:17)
[2018-10-16] MEDS: POLYVINYL ALCOHOL 15 ML BOTTLE EACHEYE SCH ×4 (09:37→20:16)
[2018-10-16] MEDS: PROSOURCE / PROSTAT (PYXIS) 30 ML UDC JT SCH ×2 (09:37→16:44)
[2018-10-16] MEDS: LEVETIRACETAM SOL (5 ML) 100 MG/ML UDC GT SCH ×2 (09:37→20:17)
[2018-10-16] MEDS: Z GUARD REMEDY 4 OZ OINT TP SCH ×4 (09:38→20:17)
[2018-10-16] MEDS: VITAMINS A AND D 56.7 GM TUBE TP SCH ×2 (09:38→20:17)
[2018-10-16 20:22] VITALS: BP 98/62
[2018-10-16] MEDS: POLYETHYLENE GLYCOL 3350 17 GM POWD.PACK GT SCH (22:38)
[2018-10-17] MEDS: ALBUTEROL FS 2.5 MG/3 ML VIAL.NEB NEB SCH ×4 (02:02→19:40)
[2018-10-17] MEDS: ERYTHROMYCIN STEARATE 250 MG TABLET GT SCH ×3 (05:11→17:36)
[2018-10-17 07:53] VITALS: BP 109/65
[2018-10-17] MEDS: LEVETIRACETAM SOL (5 ML) 100 MG/ML UDC GT SCH ×2 (08:04→20:34)
[2018-10-17] MEDS: Z GUARD REMEDY 4 OZ OINT TP SCH ×3 (08:04→20:34)
[2018-10-17] MEDS: RANITIDINE GT SCH ×2 (08:04→20:34)
[2018-10-17] MEDS: VITAMINS A AND D 56.7 GM TUBE TP SCH ×2 (08:04→20:34)
[2018-10-17] MEDS: POLYVINYL ALCOHOL 15 ML BOTTLE EACHEYE SCH ×4 (08:04→20:34)
[2018-10-17] MEDS: PROSOURCE / PROSTAT (PYXIS) 30 ML UDC JT SCH ×2 (08:04→17:36)
[2018-10-17] MEDS: HYDROGEN PEROXIDE 480 ML BOTTLE TP SCH ×2 (09:00→19:40)
[2018-10-17 20:32] VITALS: BP 100/60
[2018-10-17] MEDS: POLYETHYLENE GLYCOL 3350 17 GM POWD.PACK GT SCH (21:01)
[2018-10-18] MEDS: ALBUTEROL FS 2.5 MG/3 ML VIAL.NEB NEB SCH ×4 (01:55→19:48)
[2018-10-18] MEDS: ERYTHROMYCIN STEARATE 250 MG TABLET GT SCH ×5 (05:09→23:08)
[2018-10-18 07:58] VITALS: BP 106/70
[2018-10-18] MEDS: PROSOURCE / PROSTAT (PYXIS) 30 ML UDC JT SCH ×2 (08:07→17:27)
[2018-10-18] MEDS: VITAMINS A AND D 56.7 GM TUBE TP SCH ×2 (08:07→21:10)
[2018-10-18] MEDS: Z GUARD REMEDY 4 OZ OINT TP SCH ×2 (08:07→21:10)
[2018-10-18] MEDS: ZINC OXIDE 30 GM TUBE TP SCH ×2 (08:07→21:10)
[2018-10-18] MEDS: POLYVINYL ALCOHOL 15 ML BOTTLE EACHEYE SCH ×4 (08:07→21:09)
[2018-10-18] MEDS: CLOTRIMAZOLE 1% 15 GM TUBE TP SCH ×2 (08:07→21:10)
[2018-10-18] MEDS: RANITIDINE GT SCH ×2 (08:07→21:09)
[2018-10-18] MEDS: HYDROGEN PEROXIDE 480 ML BOTTLE TP SCH ×2 (08:23→21:09)
--- NOTE | 2018-10-18 08:41 | NUR ---
LATE ENTRY FOR 10/11/18: INTERDISCIPLINARY TEAM PLAN OF CARE CONFERENCE was held today. The patient's responsible constitution party/ Aunt, Sugey Mitchell [phone] could not attend or participate via phone conference. Charge nurse communicated about MASD on the buttocks and Z-Guard cream order to treat it. Dr. Cleveland and interdisciplinary team discussed the current plan of care in detail. Current orders as well as treatments and medications were reviewed. See other discipline's IDT notes for further details.
[2018-10-18] MEDS: LEVETIRACETAM SOL (5 ML) 100 MG/ML UDC GT SCH ×2 (09:00→21:09)
--- NOTE | 2018-10-18 15:38 | NUR ---
TSERING spoke to patients conservator/father, Asuncion Mitchell [phone] at patient's bed-side and to Aunt, Clif, who translates as the father is only Irish speaking. TSERING informed them that the residents dentist, Dr. Kerr who performed dental cleaning on 09/06/18, is recommending that the resident receive a second dental cleaning. TSERING informed family that the [id number] cost for an additional cleaning is $150 as the insurance does not cover it. Per the patients conservator, they will opt out of a second teeth cleaning for resident. Family stated, he is not complaining of tooth pain so for now we wont have him receive a second cleaning. TSERING was agreeable to plan and informed Charge Nurse, Jared and office.
[2018-10-18 20:00] VITALS: BP 101/59
[2018-10-18 20:26] VITALS: BP 101/59
--- NOTE | 2018-10-18 20:44 | NUR ---
RT NOTE PT RECEIVED TRACHED ON MECHANICAL VENTILATION. AMBU BAG/BACK UP TRACH @ BEDSIDE. VENT PLUGGED TO RED OUTLET. ALARMS ON AND AUDIBLE. TX GIVEN, NO ADVERSE REACTIONS NOTED. SX DONE, TRACH SECURED AND PATENT. NO SOB NOTED AT THIS TIME. WILL CONTINUE TO MONITOR T/O SHIFT. Addendum: 10/18/18 at 2044 by MILAN CARRASCO RT Amended: Links added.
[2018-10-18] MEDS: POLYETHYLENE GLYCOL 3350 17 GM POWD.PACK GT SCH (21:10)
--- NOTE | 2018-10-19 00:25 | NUR ---
Seen and examined by XAVI Mike no new order.
[2018-10-19] MEDS: ALBUTEROL FS 2.5 MG/3 ML VIAL.NEB NEB SCH ×4 (01:26→20:17)
[2018-10-19] MEDS: JEVITY 1.2 CAL 1,000 ML BOTTLE JT PRN ×2 (02:23→18:51)
--- NOTE | 2018-10-19 03:36 | NUR ---
RT NOTE PATIENT REFUSED TRACH CARE T/O SHIFT. GAUZE APPEARS TO BE NOT SOILED.
[2018-10-19] MEDS: ERYTHROMYCIN STEARATE 250 MG TABLET GT SCH ×4 (05:01→23:12)
[2018-10-19 07:40] VITALS: BP 106/65
[2018-10-19] MEDS: PROSOURCE / PROSTAT (PYXIS) 30 ML UDC JT SCH ×2 (09:00→16:44)
[2018-10-19] MEDS: VITAMINS A AND D 56.7 GM TUBE TP SCH ×2 (09:00→20:46)
[2018-10-19] MEDS: HYDROGEN PEROXIDE 480 ML BOTTLE TP SCH ×2 (09:00→20:46)
[2018-10-19] MEDS: RANITIDINE GT SCH ×2 (09:00→20:46)
[2018-10-19] MEDS: POLYVINYL ALCOHOL 15 ML BOTTLE EACHEYE SCH ×4 (09:00→20:46)
[2018-10-19] MEDS: Z GUARD REMEDY 4 OZ OINT TP SCH ×2 (09:00→20:46)
[2018-10-19] MEDS: ZINC OXIDE 30 GM TUBE TP SCH ×2 (09:00→20:47)
[2018-10-19] MEDS: CLOTRIMAZOLE 1% 15 GM TUBE TP SCH ×2 (09:00→20:46)
[2018-10-19] MEDS: LEVETIRACETAM SOL (5 ML) 100 MG/ML UDC GT SCH ×2 (09:00→20:46)
[2018-10-19 20:37] VITALS: BP 102/63
[2018-10-19] MEDS: POLYETHYLENE GLYCOL 3350 17 GM POWD.PACK GT SCH (21:01)
[2018-10-20] MEDS: ALBUTEROL FS 2.5 MG/3 ML VIAL.NEB NEB SCH ×4 (01:36→19:19)
[2018-10-20] MEDS: ERYTHROMYCIN STEARATE 250 MG TABLET GT SCH ×4 (05:16→23:18)
[2018-10-20 07:37] VITALS: BP 93/54
[2018-10-20] MEDS: HYDROGEN PEROXIDE 480 ML BOTTLE TP SCH ×2 (09:00→21:16)
[2018-10-20] MEDS: LEVETIRACETAM SOL (5 ML) 100 MG/ML UDC GT SCH ×2 (09:30→21:16)
[2018-10-20] MEDS: PROSOURCE / PROSTAT (PYXIS) 30 ML UDC JT SCH ×2 (09:30→17:22)
[2018-10-20] MEDS: RANITIDINE GT SCH ×2 (09:30→21:16)
[2018-10-20] MEDS: POLYVINYL ALCOHOL 15 ML BOTTLE EACHEYE SCH ×4 (09:30→21:16)
[2018-10-20] MEDS: CLOTRIMAZOLE 1% 15 GM TUBE TP SCH ×2 (09:32→21:17)
[2018-10-20] MEDS: Z GUARD REMEDY 4 OZ OINT TP SCH ×2 (09:32→21:17)
[2018-10-20] MEDS: ZINC OXIDE 30 GM TUBE TP SCH ×2 (09:32→21:17)
[2018-10-20] MEDS: VITAMINS A AND D 56.7 GM TUBE TP SCH ×2 (09:32→21:17)
[2018-10-20 20:47] VITALS: BP 98/55
[2018-10-20] MEDS: POLYETHYLENE GLYCOL 3350 17 GM POWD.PACK GT SCH (21:17)
[2018-10-21] MEDS: ALBUTEROL FS 2.5 MG/3 ML VIAL.NEB NEB SCH ×4 (01:30→19:41)
[2018-10-21] MEDS: ERYTHROMYCIN STEARATE 250 MG TABLET GT SCH ×3 (06:10→17:09)
[2018-10-21 08:07] VITALS: BP 96/55
[2018-10-21] MEDS: PROSOURCE / PROSTAT (PYXIS) 30 ML UDC JT SCH ×2 (08:40→17:09)
[2018-10-21] MEDS: LEVETIRACETAM SOL (5 ML) 100 MG/ML UDC GT SCH ×2 (08:40→21:21)
[2018-10-21] MEDS: RANITIDINE GT SCH ×2 (08:40→21:17)
[2018-10-21] MEDS: POLYVINYL ALCOHOL 15 ML BOTTLE EACHEYE SCH ×4 (08:40→21:15)
[2018-10-21] MEDS: VITAMINS A AND D 56.7 GM TUBE TP SCH ×2 (09:00→21:18)
[2018-10-21] MEDS: Z GUARD REMEDY 4 OZ OINT TP SCH ×2 (09:00→21:18)
[2018-10-21] MEDS: HYDROGEN PEROXIDE 480 ML BOTTLE TP SCH ×2 (09:00→21:00)
[2018-10-21] MEDS: ZINC OXIDE 30 GM TUBE TP SCH ×2 (09:00→21:18)
[2018-10-21] MEDS: CLOTRIMAZOLE 1% 15 GM TUBE TP SCH ×2 (09:00→21:18)
[2018-10-21] MEDS: JEVITY 1.2 CAL 1,000 ML BOTTLE JT PRN (16:00)
[2018-10-21 21:09] VITALS: BP 115/59
[2018-10-21] MEDS: POLYETHYLENE GLYCOL 3350 17 GM POWD.PACK GT SCH (21:19)
[2018-10-22] MEDS: ERYTHROMYCIN STEARATE 250 MG TABLET GT SCH ×5 (00:27→23:34)
[2018-10-22] MEDS: ALBUTEROL FS 2.5 MG/3 ML VIAL.NEB NEB SCH ×4 (01:18→20:09)
[2018-10-22] MEDS: JEVITY 1.2 CAL 1,000 ML BOTTLE JT PRN (06:57)
[2018-10-22 07:53] VITALS: BP 100/64
[2018-10-22] MEDS: LEVETIRACETAM SOL (5 ML) 100 MG/ML UDC GT SCH ×2 (08:30→20:07)
[2018-10-22] MEDS: POLYVINYL ALCOHOL 15 ML BOTTLE EACHEYE SCH ×4 (08:30→20:07)
[2018-10-22] MEDS: PROSOURCE / PROSTAT (PYXIS) 30 ML UDC JT SCH ×2 (08:30→17:48)
[2018-10-22] MEDS: RANITIDINE GT SCH ×2 (08:30→20:07)
[2018-10-22] MEDS: ZINC OXIDE 30 GM TUBE TP SCH ×2 (09:00→20:08)
[2018-10-22] MEDS: HYDROGEN PEROXIDE 480 ML BOTTLE TP SCH ×2 (09:00→21:25)
[2018-10-22] MEDS: CLOTRIMAZOLE 1% 15 GM TUBE TP SCH ×2 (09:00→20:08)
[2018-10-22] MEDS: VITAMINS A AND D 56.7 GM TUBE TP SCH ×2 (09:00→20:08)
[2018-10-22] MEDS: Z GUARD REMEDY 4 OZ OINT TP SCH ×2 (09:00→20:08)
[2018-10-22 19:53] VITALS: BP 98/56
--- NOTE | 2018-10-22 20:09 | NUR ---
RECEIVED TRACH PT ON MECH VENT WITH NOTED SETTINGS. PT IS ALERT AND AWAKE. TRACH IS PATENT AND SECURED. STEEL CUTTER DONE. Q6 BREATHING TX GIVEN WITH NO ADVERSE REACTION NOTED. SX DONE PRN. VENT PLUGGED INTO RED OUTLET. ALARMS ON AND AUDIBLE. AMBU BAG @ BEDSIDE. NO RESP DISTRESS AT THIS TIME. WILL CONT TO MONITOR PT.
[2018-10-22] MEDS: POLYETHYLENE GLYCOL 3350 17 GM POWD.PACK GT SCH (21:53)
[2018-10-23] MEDS: ALBUTEROL FS 2.5 MG/3 ML VIAL.NEB NEB SCH ×4 (01:17→20:09)
[2018-10-23] MEDS: ERYTHROMYCIN STEARATE 250 MG TABLET GT SCH ×4 (05:18→23:38)
[2018-10-23] MEDS: JEVITY 1.2 CAL 1,000 ML BOTTLE JT PRN (05:18)
[2018-10-23 07:46] VITALS: BP 134/70
[2018-10-23 07:50] VITALS: BP 116/64
[2018-10-23] MEDS: HYDROGEN PEROXIDE 480 ML BOTTLE TP SCH ×2 (09:03→20:09)
[2018-10-23] MEDS: Z GUARD REMEDY 4 OZ OINT TP SCH ×2 (09:46→20:06)
[2018-10-23] MEDS: POLYVINYL ALCOHOL 15 ML BOTTLE EACHEYE SCH ×4 (09:46→20:06)
[2018-10-23] MEDS: CLOTRIMAZOLE 1% 15 GM TUBE TP SCH ×2 (09:46→20:06)
[2018-10-23] MEDS: ZINC OXIDE 30 GM TUBE TP SCH ×2 (09:46→20:07)
[2018-10-23] MEDS: PROSOURCE / PROSTAT (PYXIS) 30 ML UDC JT SCH ×2 (09:46→17:17)
[2018-10-23] MEDS: LEVETIRACETAM SOL (5 ML) 100 MG/ML UDC GT SCH ×2 (09:46→20:06)
[2018-10-23] MEDS: VITAMINS A AND D 56.7 GM TUBE TP SCH ×2 (09:46→20:06)
[2018-10-23] MEDS: RANITIDINE GT SCH ×2 (09:46→20:06)
[2018-10-23 20:45] VITALS: BP 125/75
[2018-10-23] MEDS: POLYETHYLENE GLYCOL 3350 17 GM POWD.PACK GT SCH (22:08)
[2018-10-24] MEDS: ALBUTEROL FS 2.5 MG/3 ML VIAL.NEB NEB SCH ×4 (00:47→20:14)
[2018-10-24] MEDS: ERYTHROMYCIN STEARATE 250 MG TABLET GT SCH ×3 (05:47→18:13)
[2018-10-24] MEDS: JEVITY 1.2 CAL 1,000 ML BOTTLE JT PRN (05:58)
[2018-10-24 07:31] VITALS: BP 95/46
[2018-10-24] MEDS: HYDROGEN PEROXIDE 480 ML BOTTLE TP SCH ×2 (09:00→20:14)
[2018-10-24] MEDS: Z GUARD REMEDY 4 OZ OINT TP SCH ×2 (09:32→21:48)
[2018-10-24] MEDS: PROSOURCE / PROSTAT (PYXIS) 30 ML UDC JT SCH ×2 (09:32→17:00)
[2018-10-24] MEDS: LEVETIRACETAM SOL (5 ML) 100 MG/ML UDC GT SCH ×2 (09:32→21:48)
[2018-10-24] MEDS: RANITIDINE GT SCH ×2 (09:32→21:48)
[2018-10-24] MEDS: POLYVINYL ALCOHOL 15 ML BOTTLE EACHEYE SCH ×4 (09:32→21:47)
[2018-10-24] MEDS: CLOTRIMAZOLE 1% 15 GM TUBE TP SCH ×2 (09:32→21:48)
[2018-10-24] MEDS: ZINC OXIDE 30 GM TUBE TP SCH ×2 (09:33→21:48)
[2018-10-24] MEDS: VITAMINS A AND D 56.7 GM TUBE TP SCH ×2 (09:33→21:48)
[2018-10-24 20:11] VITALS: BP 103/60
[2018-10-24] MEDS: POLYETHYLENE GLYCOL 3350 17 GM POWD.PACK GT SCH (21:48)
[2018-10-25] MEDS: ERYTHROMYCIN STEARATE 250 MG TABLET GT SCH ×4 (00:45→18:37)
[2018-10-25] MEDS: ALBUTEROL FS 2.5 MG/3 ML VIAL.NEB NEB SCH ×4 (02:08→19:50)
[2018-10-25] MEDS: JEVITY 1.2 CAL 1,000 ML BOTTLE JT PRN (05:48)
[2018-10-25 08:02] VITALS: BP 111/51
[2018-10-25] MEDS: HYDROGEN PEROXIDE 480 ML BOTTLE TP SCH ×2 (08:14→20:52)
[2018-10-25] MEDS: CLOTRIMAZOLE 1% 15 GM TUBE TP SCH ×2 (08:57→20:52)
[2018-10-25] MEDS: RANITIDINE GT SCH ×2 (08:57→20:51)
[2018-10-25] MEDS: LEVETIRACETAM SOL (5 ML) 100 MG/ML UDC GT SCH ×2 (08:57→20:51)
[2018-10-25] MEDS: VITAMINS A AND D 56.7 GM TUBE TP SCH ×2 (08:57→20:53)
[2018-10-25] MEDS: PROSOURCE / PROSTAT (PYXIS) 30 ML UDC JT SCH ×2 (08:57→17:00)
[2018-10-25] MEDS: Z GUARD REMEDY 4 OZ OINT TP SCH ×2 (08:57→20:53)
[2018-10-25] MEDS: POLYVINYL ALCOHOL 15 ML BOTTLE EACHEYE SCH ×4 (08:57→20:49)
[2018-10-25] MEDS: ZINC OXIDE 30 GM TUBE TP SCH ×2 (08:58→20:53)
[2018-10-25 20:28] VITALS: BP 100/59
[2018-10-25] MEDS: POLYETHYLENE GLYCOL 3350 17 GM POWD.PACK GT SCH (20:46)
[2018-10-26] MEDS: ALBUTEROL FS 2.5 MG/3 ML VIAL.NEB NEB SCH ×4 (01:49→19:48)
[2018-10-26] MEDS: JEVITY 1.2 CAL 1,000 ML BOTTLE JT PRN (03:36)
--- NOTE | 2018-10-26 03:45 | NUR ---
G-TUBE RESIDUAL CHECKED=60ML, FEEDING HELD AT THIS TIME. PATIENT IS ASLEEP. NO SOB NOTED.
[2018-10-26] MEDS: ERYTHROMYCIN STEARATE 250 MG TABLET GT SCH ×5 (05:36→23:17)
--- NOTE | 2018-10-26 05:43 | NUR ---
g-tube residual checked=none, feeding resumed.patient tolerated.
--- NOTE | 2018-10-26 05:46 | NUR ---
g-tube residual checked=none,feeding resumed. patient tolerated.
[2018-10-26 08:02] VITALS: BP 108/49
[2018-10-26] MEDS: VITAMINS A AND D 56.7 GM TUBE TP SCH ×2 (09:00→20:38)
[2018-10-26] MEDS: LEVETIRACETAM SOL (5 ML) 100 MG/ML UDC GT SCH ×2 (09:00→20:38)
[2018-10-26] MEDS: POLYVINYL ALCOHOL 15 ML BOTTLE EACHEYE SCH ×4 (09:00→20:38)
[2018-10-26] MEDS: Z GUARD REMEDY 4 OZ OINT TP SCH ×2 (09:00→20:38)
[2018-10-26] MEDS: ZINC OXIDE 30 GM TUBE TP SCH ×2 (09:00→20:38)
[2018-10-26] MEDS: RANITIDINE GT SCH ×2 (09:00→20:38)
[2018-10-26] MEDS: CLOTRIMAZOLE 1% 15 GM TUBE TP SCH ×2 (09:00→20:38)
[2018-10-26] MEDS: PROSOURCE / PROSTAT (PYXIS) 30 ML UDC JT SCH ×2 (09:00→17:00)
[2018-10-26] MEDS: HYDROGEN PEROXIDE 480 ML BOTTLE TP SCH ×2 (09:00→21:00)
[2018-10-26 20:06] VITALS: BP 99/58
[2018-10-26] MEDS: POLYETHYLENE GLYCOL 3350 17 GM POWD.PACK GT SCH (21:28)
[2018-10-27] MEDS: ALBUTEROL FS 2.5 MG/3 ML VIAL.NEB NEB SCH ×4 (01:13→19:33)
[2018-10-27] MEDS: ERYTHROMYCIN STEARATE 250 MG TABLET GT SCH ×3 (05:54→17:22)
[2018-10-27 07:52] VITALS: BP 96/56
[2018-10-27] MEDS: RANITIDINE GT SCH ×2 (08:15→21:05)
[2018-10-27] MEDS: POLYVINYL ALCOHOL 15 ML BOTTLE EACHEYE SCH ×4 (08:15→21:05)
[2018-10-27] MEDS: HYDROGEN PEROXIDE 480 ML BOTTLE TP SCH ×2 (08:16→21:05)
[2018-10-27] MEDS: VITAMINS A AND D 56.7 GM TUBE TP SCH ×2 (08:16→21:06)
[2018-10-27] MEDS: CLOTRIMAZOLE 1% 15 GM TUBE TP SCH ×2 (08:16→21:05)
[2018-10-27] MEDS: PROSOURCE / PROSTAT (PYXIS) 30 ML UDC JT SCH ×2 (08:16→17:22)
[2018-10-27] MEDS: LEVETIRACETAM SOL (5 ML) 100 MG/ML UDC GT SCH ×2 (08:16→21:05)
[2018-10-27] MEDS: Z GUARD REMEDY 4 OZ OINT TP SCH ×2 (08:16→21:06)
[2018-10-27] MEDS: ZINC OXIDE 30 GM TUBE TP SCH ×2 (08:17→21:06)
[2018-10-27 20:48] VITALS: BP 108/63
[2018-10-27] MEDS: POLYETHYLENE GLYCOL 3350 17 GM POWD.PACK GT SCH (21:06)
[2018-10-28] MEDS: ERYTHROMYCIN STEARATE 250 MG TABLET GT SCH ×5 (00:33→23:25)
[2018-10-28] MEDS: ALBUTEROL FS 2.5 MG/3 ML VIAL.NEB NEB SCH ×4 (00:42→19:44)
[2018-10-28 08:00] VITALS: BP 98/52
[2018-10-28] MEDS: HYDROGEN PEROXIDE 480 ML BOTTLE TP SCH ×2 (08:23→21:00)
[2018-10-28] MEDS: CLOTRIMAZOLE 1% 15 GM TUBE TP SCH ×2 (09:00→20:08)
[2018-10-28] MEDS: ZINC OXIDE 30 GM TUBE TP SCH ×2 (09:00→20:09)
[2018-10-28] MEDS: VITAMINS A AND D 56.7 GM TUBE TP SCH ×2 (09:00→20:09)
[2018-10-28] MEDS: Z GUARD REMEDY 4 OZ OINT TP SCH ×2 (09:00→20:09)
[2018-10-28] MEDS: RANITIDINE GT SCH ×2 (09:42→20:08)
[2018-10-28] MEDS: PROSOURCE / PROSTAT (PYXIS) 30 ML UDC JT SCH ×2 (09:42→17:15)
[2018-10-28] MEDS: LEVETIRACETAM SOL (5 ML) 100 MG/ML UDC GT SCH ×2 (09:42→20:08)
[2018-10-28] MEDS: POLYVINYL ALCOHOL 15 ML BOTTLE EACHEYE SCH ×4 (09:42→20:08)
[2018-10-28 20:42] VITALS: BP 112/68
[2018-10-28] MEDS: POLYETHYLENE GLYCOL 3350 17 GM POWD.PACK GT SCH (22:25)
[2018-10-29] MEDS: ALBUTEROL FS 2.5 MG/3 ML VIAL.NEB NEB SCH ×4 (00:56→20:01)
[2018-10-29] MEDS: ERYTHROMYCIN STEARATE 250 MG TABLET GT SCH ×3 (05:01→17:23)
[2018-10-29] MEDS: JEVITY 1.2 CAL 1,000 ML BOTTLE JT PRN (05:17)
[2018-10-29 07:46] VITALS: BP 135/61
[2018-10-29] MEDS: POLYVINYL ALCOHOL 15 ML BOTTLE EACHEYE SCH ×4 (08:12→20:04)
[2018-10-29] MEDS: HYDROGEN PEROXIDE 480 ML BOTTLE TP SCH ×2 (08:13→20:01)
[2018-10-29] MEDS: Z GUARD REMEDY 4 OZ OINT TP SCH ×2 (08:13→20:06)
[2018-10-29] MEDS: RANITIDINE GT SCH ×2 (08:13→20:05)
[2018-10-29] MEDS: PROSOURCE / PROSTAT (PYXIS) 30 ML UDC JT SCH ×2 (08:13→17:23)
[2018-10-29] MEDS: LEVETIRACETAM SOL (5 ML) 100 MG/ML UDC GT SCH ×2 (08:13→20:05)
[2018-10-29] MEDS: CLOTRIMAZOLE 1% 15 GM TUBE TP SCH ×2 (08:13→20:05)
[2018-10-29] MEDS: VITAMINS A AND D 56.7 GM TUBE TP SCH ×2 (08:14→20:06)
[2018-10-29] MEDS: ZINC OXIDE 30 GM TUBE TP SCH ×2 (08:14→20:06)
--- NOTE | 2018-10-29 16:19 | NUR ---
October Family Support Group: SW reminded patient's responsible alliance party, Clif [phone] of the October Family Support group taking place 10/30/18 from 11am-12pm in the old admin. conference room.
--- NOTE | 2018-10-29 18:46 | NUR ---
Seen and examined by GANG SAW OPERATOR Germaine Mike, assessed redness in the penile area with order to apply Clotrimazole 1% cream. Dietary eval also ordered to assess nutritional needs, since she noted patient has big belly. Orders carried out.
[2018-10-29 20:00] VITALS: BP 104/66
[2018-10-29] MEDS: POLYETHYLENE GLYCOL 3350 17 GM POWD.PACK GT SCH (21:30)
[2018-10-30 00:16] VITALS: BP 104/66
[2018-10-30] MEDS: ALBUTEROL FS 2.5 MG/3 ML VIAL.NEB NEB SCH ×4 (01:02→20:11)
[2018-10-30] MEDS: JEVITY 1.2 CAL 1,000 ML BOTTLE JT PRN (04:35)
[2018-10-30] MEDS: ERYTHROMYCIN STEARATE 250 MG TABLET GT SCH ×5 (05:26→23:28)
[2018-10-30 07:56] VITALS: BP 96/58
[2018-10-30] MEDS: HYDROGEN PEROXIDE 480 ML BOTTLE TP SCH ×2 (09:00→21:00)
[2018-10-30] MEDS: PROSOURCE / PROSTAT (PYXIS) 30 ML UDC JT SCH ×2 (09:13→16:52)
[2018-10-30] MEDS: CLOTRIMAZOLE 1% 15 GM TUBE TP SCH ×3 (09:13→20:16)
[2018-10-30] MEDS: LEVETIRACETAM SOL (5 ML) 100 MG/ML UDC GT SCH ×2 (09:13→20:16)
[2018-10-30] MEDS: POLYVINYL ALCOHOL 15 ML BOTTLE EACHEYE SCH ×4 (09:13→20:16)
[2018-10-30] MEDS: Z GUARD REMEDY 4 OZ OINT TP SCH ×2 (09:13→20:16)
[2018-10-30] MEDS: VITAMINS A AND D 56.7 GM TUBE TP SCH ×2 (09:13→20:16)
[2018-10-30] MEDS: RANITIDINE GT SCH ×2 (09:13→20:16)
[2018-10-30] MEDS: ZINC OXIDE 30 GM TUBE TP SCH ×2 (09:14→20:16)
[2018-10-30 20:07] VITALS: BP 101/54
[2018-10-30] MEDS: POLYETHYLENE GLYCOL 3350 17 GM POWD.PACK GT SCH (22:12)
[2018-10-31] MEDS: ALBUTEROL FS 2.5 MG/3 ML VIAL.NEB NEB SCH ×4 (02:30→19:57)
[2018-10-31] MEDS: JEVITY 1.2 CAL 1,000 ML BOTTLE JT PRN (05:17)
[2018-10-31] MEDS: ERYTHROMYCIN STEARATE 250 MG TABLET GT SCH ×4 (05:17→23:25)
[2018-10-31 08:02] VITALS: BP 105/66
[2018-10-31] MEDS: HYDROGEN PEROXIDE 480 ML BOTTLE TP SCH ×2 (08:02→20:08)
[2018-10-31] MEDS: RANITIDINE GT SCH ×2 (09:10→20:19)
[2018-10-31] MEDS: VITAMINS A AND D 56.7 GM TUBE TP SCH ×2 (09:10→20:20)
[2018-10-31] MEDS: ZINC OXIDE 30 GM TUBE TP SCH ×2 (09:10→20:20)
[2018-10-31] MEDS: CLOTRIMAZOLE 1% 15 GM TUBE TP SCH ×3 (09:10→20:20)
[2018-10-31] MEDS: LEVETIRACETAM SOL (5 ML) 100 MG/ML UDC GT SCH ×2 (09:10→20:19)
[2018-10-31] MEDS: POLYVINYL ALCOHOL 15 ML BOTTLE EACHEYE SCH ×4 (09:10→20:19)
[2018-10-31] MEDS: Z GUARD REMEDY 4 OZ OINT TP SCH ×2 (09:10→20:20)
[2018-10-31] MEDS: PROSOURCE / PROSTAT (PYXIS) 30 ML UDC JT SCH ×2 (09:10→16:53)
--- NOTE | 2018-10-31 14:21 | NUR ---
Reinstating Medi-Lucia Benefits: Sub-acute director informed SW that the patients Medi-lucia benefits have been discontinued. TSERING called Jolly Sherman from Disability Determination Services [phone] (case #[id number]) who stated thats she made her decision of if to reinstate the patients benefits on 10/18/18. Per Jolly, it takes about two weeks for her decision to be sent out to [facility] and then some time for the county to reinstate the benefits. TSERING received Notice of Approval [employer] Immigrants (CAPI) from patients father/conservator, Asuncion Mitchell [phone] dated 10/23/18. No further action required. TSERING received Notice of Action Medi-Lucia from patients father/conservator, Asuncion Mitchell [phone] dated 09/20/18. Per information provided on the Notice of Action document, TSERING contacted the Department of Health Services Worker, Poonam Oliver at [phone] for (case # [id number]). Per TSERING Levin to print and have family complete and sign, Appointment of Authorized Deckhand Tuna Boat, Request for Tax Household Information forms and FAX to [phone] along with Physicians Notice of Incapacitation and [facility] Admissions face sheet attached. TSERING will follow-up.
[2018-10-31] MEDS: POLYETHYLENE GLYCOL 3350 17 GM POWD.PACK GT SCH (21:09)
[2018-11-01] MEDS: ALBUTEROL FS 2.5 MG/3 ML VIAL.NEB NEB SCH ×4 (00:42→19:27)
[2018-11-01 04:48] VITALS: BP 119/71
[2018-11-01] MEDS: JEVITY 1.2 CAL 1,000 ML BOTTLE JT PRN (05:08)
[2018-11-01] MEDS: ERYTHROMYCIN STEARATE 250 MG TABLET GT SCH ×4 (05:08→23:42)
[2018-11-01 07:51] VITALS: BP 109/65
[2018-11-01] MEDS: HYDROGEN PEROXIDE 480 ML BOTTLE TP SCH ×2 (08:00→21:02)
[2018-11-01] MEDS: PROSOURCE / PROSTAT (PYXIS) 30 ML UDC JT SCH ×2 (09:00→16:20)
[2018-11-01] MEDS: VITAMINS A AND D 56.7 GM TUBE TP SCH ×2 (09:00→21:24)
[2018-11-01] MEDS: CLOTRIMAZOLE 1% 15 GM TUBE TP SCH (09:00)
[2018-11-01] MEDS: POLYVINYL ALCOHOL 15 ML BOTTLE EACHEYE SCH ×4 (09:00→21:24)
[2018-11-01] MEDS: RANITIDINE GT SCH ×2 (09:00→21:24)
[2018-11-01] MEDS: Z GUARD REMEDY 4 OZ OINT TP SCH ×2 (09:00→21:24)
[2018-11-01] MEDS: LEVETIRACETAM SOL (5 ML) 100 MG/ML UDC GT SCH ×2 (09:00→21:24)
--- NOTE | 2018-11-01 14:30 | NUR ---
Notified Germaine Mike of fashion journalist's recommendation to DC Prostat. According to Germaine, she will come and assess patient today and not to carry out recommendation.
--- NOTE | 2018-11-01 18:48 | NUR ---
Seen and examined by Germaine Mike, reviewed dietary recommendation, gave an order to check BMP and albumin level in am before discontinuing Prostat.
[2018-11-01 20:12] VITALS: BP 108/73
[2018-11-01] MEDS: POLYETHYLENE GLYCOL 3350 17 GM POWD.PACK GT SCH (21:24)
[2018-11-02] MEDS: ALBUTEROL FS 2.5 MG/3 ML VIAL.NEB NEB SCH ×4 (01:20→19:34)
[2018-11-02] MEDS: JEVITY 1.2 CAL 1,000 ML BOTTLE JT PRN (06:02)
[2018-11-02] MEDS: ERYTHROMYCIN STEARATE 250 MG TABLET GT SCH ×4 (06:02→23:45)
[2018-11-02 07:49] LABS: ALBUMIN 2.8 g/dL (3.4-5.0); BILIRUBIN,TOTAL 0.4 mg/dL (0.2-1.0); CALCIUM, SERUM 9.4 mg/dL (8.5-10.1); CREATININE 0.3 mg/dL (0.6-1.3); POTASSIUM 4.2 mmol/L (3.5-5.1); TOTAL PROTEIN, SERUM 7.2 g/dL (6.4-8.2)
[2018-11-02 07:59] VITALS: BP 111/52
[2018-11-02] MEDS: HYDROGEN PEROXIDE 480 ML BOTTLE TP SCH ×2 (09:00→21:07)
[2018-11-02] MEDS: RANITIDINE GT SCH ×2 (09:37→20:28)
[2018-11-02] MEDS: PROSOURCE / PROSTAT (PYXIS) 30 ML UDC JT SCH ×2 (09:37→17:07)
[2018-11-02] MEDS: POLYVINYL ALCOHOL 15 ML BOTTLE EACHEYE SCH ×4 (09:37→20:28)
[2018-11-02] MEDS: LEVETIRACETAM SOL (5 ML) 100 MG/ML UDC GT SCH ×2 (09:37→20:28)
[2018-11-02] MEDS: Z GUARD REMEDY 4 OZ OINT TP SCH ×2 (09:38→20:28)
[2018-11-02] MEDS: CLOTRIMAZOLE 1% 15 GM TUBE TP SCH (09:38)
[2018-11-02] MEDS: VITAMINS A AND D 56.7 GM TUBE TP SCH ×2 (09:38→20:28)
--- NOTE | 2018-11-02 13:00 | NUR ---
Relayed BMP and albumin level to BALLET MASTER/MISTRESS Germaine Mike, with albumin of 2.8, she is not in agreement with the recommendation to dc Prostat for weight reduction, instead she would like pouch making machine operator to reduce feeding rate and calculate how much protein there is in a 200 lucia. of tube feeding which is also equivalent to Prostat that patient is currently receiving. Relayed this information to pouch making machine operator and endorsed to inform family of planned weight reduction.
[2018-11-02 20:08] VITALS: BP 108/58
[2018-11-02] MEDS: POLYETHYLENE GLYCOL 3350 17 GM POWD.PACK GT SCH (22:18)
[2018-11-03] MEDS: ALBUTEROL FS 2.5 MG/3 ML VIAL.NEB NEB SCH ×4 (01:40→20:07)
[2018-11-03] MEDS: ERYTHROMYCIN STEARATE 250 MG TABLET GT SCH ×3 (06:22→17:01)
[2018-11-03 08:02] VITALS: BP 115/52
[2018-11-03] MEDS: HYDROGEN PEROXIDE 480 ML BOTTLE TP SCH ×2 (09:00→21:09)
[2018-11-03] MEDS: POLYVINYL ALCOHOL 15 ML BOTTLE EACHEYE SCH ×4 (09:14→21:08)
[2018-11-03] MEDS: RANITIDINE GT SCH ×2 (09:15→21:09)
[2018-11-03] MEDS: VITAMINS A AND D 56.7 GM TUBE TP SCH ×2 (09:15→21:09)
[2018-11-03] MEDS: CLOTRIMAZOLE 1% 15 GM TUBE TP SCH (09:15)
[2018-11-03] MEDS: Z GUARD REMEDY 4 OZ OINT TP SCH ×2 (09:15→21:09)
[2018-11-03] MEDS: PROSOURCE / PROSTAT (PYXIS) 30 ML UDC JT SCH ×2 (09:15→17:01)
[2018-11-03] MEDS: LEVETIRACETAM SOL (5 ML) 100 MG/ML UDC GT SCH ×2 (09:15→21:09)
[2018-11-03] MEDS: JEVITY 1.2 CAL 1,000 ML BOTTLE JT PRN (10:48)
--- NOTE | 2018-11-03 13:47 | NUR ---
Resident's father visited today informed about plan of care on how to manage his weight.
[2018-11-03 20:00] VITALS: BP 114/77
[2018-11-03] MEDS: POLYETHYLENE GLYCOL 3350 17 GM POWD.PACK GT SCH (21:09)
[2018-11-04] MEDS: ERYTHROMYCIN STEARATE 250 MG TABLET GT SCH ×5 (00:43→23:51)
[2018-11-04] MEDS: ALBUTEROL FS 2.5 MG/3 ML VIAL.NEB NEB SCH ×4 (01:40→19:31)
[2018-11-04] MEDS: JEVITY 1.2 CAL 1,000 ML BOTTLE JT PRN (04:46)
[2018-11-04] MEDS: HYDROGEN PEROXIDE 480 ML BOTTLE TP SCH ×2 (07:47→21:21)
[2018-11-04] MEDS: RANITIDINE GT SCH ×2 (08:30→21:21)
[2018-11-04] MEDS: POLYVINYL ALCOHOL 15 ML BOTTLE EACHEYE SCH ×4 (08:30→21:21)
[2018-11-04] MEDS: LEVETIRACETAM SOL (5 ML) 100 MG/ML UDC GT SCH ×2 (08:30→21:21)
[2018-11-04] MEDS: PROSOURCE / PROSTAT (PYXIS) 30 ML UDC JT SCH ×2 (08:31→17:00)
[2018-11-04] MEDS: CLOTRIMAZOLE 1% 15 GM TUBE TP SCH (08:31)
[2018-11-04] MEDS: VITAMINS A AND D 56.7 GM TUBE TP SCH ×2 (08:32→21:21)
[2018-11-04] MEDS: Z GUARD REMEDY 4 OZ OINT TP SCH ×2 (08:32→21:21)
[2018-11-04 10:19] VITALS: BP 144/91
--- NOTE | 2018-11-04 13:45 | NUR ---
Received order from XAVI Mike to decrease tube feeding rate of Jevity 1.2 from 50mL/hr to 45 mL/hr for 20 hours a day per dietary recommendation. Informed pt's father who is in agreement to decreasing feeding rate for weight reduction.
--- NOTE | 2018-11-04 15:23 | NUR ---
SW met with patients conservator/father Asuncion Mitchell [phone] who is Dominican speaking only and aunt, Paramjit [phone] who translates. SW had family complete and sign, Appointment of Authorized News Analyst, Request for Tax Household Information forms required to have patients Medi-Ovidio benefit reinstated. SW also had family sign Consent to release conservatorship paperwork as requested by Department of Health Services. SW faxed Appointment of Authorized News Analyst, Request for Tax Household Information forms, with [facility] paperwork and [facility] Admissions face sheet attached to Poonam Oliver for Department of Health Services FAX:[phone] and received completed fax receipt.
--- NOTE | 2018-11-04 15:28 | NUR ---
RT Pt received on ordered vent settings. Vent is plugged into red outlet w spare trach @ hob. Alarms are set and audible. Trach care done. No sob or respiratory distress noted through out shift. Addendum: 11/04/18 at 1809 by HUGH LICONA RT Amended: Links added.
[2018-11-04 20:21] VITALS: BP 106/61
[2018-11-04] MEDS: POLYETHYLENE GLYCOL 3350 17 GM POWD.PACK GT SCH (21:21)
[2018-11-05] MEDS: ALBUTEROL FS 2.5 MG/3 ML VIAL.NEB NEB SCH ×4 (01:39→19:15)
[2018-11-05] MEDS: ERYTHROMYCIN STEARATE 250 MG TABLET GT SCH ×3 (06:04→18:00)
[2018-11-05 07:34] VITALS: BP 102/58
[2018-11-05] MEDS: CLOTRIMAZOLE 1% 15 GM TUBE TP SCH (09:00)
[2018-11-05] MEDS: HYDROGEN PEROXIDE 480 ML BOTTLE TP SCH ×2 (09:00→21:00)
[2018-11-05] MEDS: Z GUARD REMEDY 4 OZ OINT TP SCH ×2 (09:00→20:36)
[2018-11-05] MEDS: VITAMINS A AND D 56.7 GM TUBE TP SCH ×2 (09:00→20:36)
[2018-11-05] MEDS: RANITIDINE GT SCH ×2 (09:04→20:36)
[2018-11-05] MEDS: LEVETIRACETAM SOL (5 ML) 100 MG/ML UDC GT SCH ×2 (09:04→20:36)
[2018-11-05] MEDS: PROSOURCE / PROSTAT (PYXIS) 30 ML UDC JT SCH ×2 (09:04→16:33)
[2018-11-05] MEDS: POLYVINYL ALCOHOL 15 ML BOTTLE EACHEYE SCH ×4 (09:04→20:34)
--- NOTE | 2018-11-05 09:58 | NUR ---
RT Pt received on ordered vent settings. Vent is plugged into red outlet w spare trach @ hob. Trach care done after shower. No sob or respiratory distress noted through out shift, will cont to monitor.
--- NOTE | 2018-11-05 10:03 | NUR ---
Re-instating Medi-Ovidio Benefits: TSERING contacted Poonam Oliver [phone] from Department of Health Services to verify if she received the fax with Forms MC382 and RFTHI as requested and verify if any additional information is required(see previous SS case notes for details). Per Poonam, the FAX does not arrive directly to her but she will be able to see it in the system within 3-days time. Per Poonam, she will contact whoever was listed under Appointment of Authorized Jet Ski Mechanic (Form MC382). The patients father/Conservator, Asuncion Mitchell [phone] is the person listed in that form. TSERING informed Poonam that Anne is Setswana speaking only. Per Poonam, she will note that and ensure to have a wood veneer taper if communicating with him. Per Poonam, Erinhaileycolby will be the one notified if additional information is required. TSERING was agreeable to plan. SW to follow-up.
[2018-11-05 19:52] VITALS: BP 127/69
[2018-11-05] MEDS: POLYETHYLENE GLYCOL 3350 17 GM POWD.PACK GT SCH (21:38)
[2018-11-06] MEDS: ERYTHROMYCIN STEARATE 250 MG TABLET GT SCH ×5 (00:14→23:21)
[2018-11-06] MEDS: ALBUTEROL FS 2.5 MG/3 ML VIAL.NEB NEB SCH ×4 (01:36→19:44)
[2018-11-06] MEDS: JEVITY 1.2 CAL 1,000 ML BOTTLE JT PRN (03:59)
[2018-11-06 08:09] VITALS: BP 119/63
[2018-11-06] MEDS: POLYVINYL ALCOHOL 15 ML BOTTLE EACHEYE SCH ×4 (08:27→21:29)
[2018-11-06] MEDS: RANITIDINE GT SCH ×2 (08:27→20:27)
[2018-11-06] MEDS: PROSOURCE / PROSTAT (PYXIS) 30 ML UDC JT SCH ×2 (08:27→17:27)
[2018-11-06] MEDS: LEVETIRACETAM SOL (5 ML) 100 MG/ML UDC GT SCH ×2 (08:27→20:28)
[2018-11-06] MEDS: HYDROGEN PEROXIDE 480 ML BOTTLE TP SCH ×2 (09:00→19:44)
[2018-11-06] MEDS: Z GUARD REMEDY 4 OZ OINT TP SCH ×2 (09:00→20:28)
[2018-11-06] MEDS: CLOTRIMAZOLE 1% 15 GM TUBE TP SCH (09:00)
[2018-11-06] MEDS: VITAMINS A AND D 56.7 GM TUBE TP SCH ×2 (09:00→20:29)
--- NOTE | 2018-11-06 12:08 | NUR ---
SW received a visit from patients aunt, HARDY [phone] to bring SW a copy of letter from [facility] stating that they have done the initial approval and verified that the patients stay at [facility] Sub-Acute unit is a medical necessity. Start date of the approve stay is 11/04/18-05/04/2019. Medicaid ID: [id number]. Reference # [id number]. Family aware and agreeable, and Sub-acute director notified.
--- NOTE | 2018-11-06 16:07 | NUR ---
RT Pt received on ordered vent settings. Vent is plugged into red outlet w spare trach @ hob. Alarms are set and audible. No sob or respiratory distress noted at this time. will continue to monitor. Addendum: 11/06/18 at 1607 by KYM DUEÑAS RT Amended: Links added.
--- NOTE | 2018-11-06 19:44 | NUR ---
RT NOTE: RECEIVED TRACH PT ON [facility] VENT ON NOTED SETTINGS PER MD ORDERS. TRACH CARE DONE AND IS PATENT AND SECURED. CHHA DONE. Q6 BREATHING TX GIVEN WITH NO ADVERSE REACTION NOTED. SX DONE PRN. VENT PLUGGED INTO RED OUTLET. ALARMS ON AND AUDIBLE. RAGHU BAG @ BEDSIDE. NO RESP DISTRESS AT THIS TIME. WILL CONT TO MONITOR PT. Addendum: 11/07/18 at 0238 by CIRILO LOZOYA RT Amended: Links added.
[2018-11-06] MEDS: POLYVINYL ALCOHOL 15 ML BOTTLE EACHEYE PRN (20:29)
[2018-11-06 21:44] VITALS: BP 115/67
[2018-11-06] MEDS: POLYETHYLENE GLYCOL 3350 17 GM POWD.PACK GT SCH (22:10)
[2018-11-07] MEDS: ALBUTEROL FS 2.5 MG/3 ML VIAL.NEB NEB SCH ×4 (01:36→20:03)
[2018-11-07] MEDS: ERYTHROMYCIN STEARATE 250 MG TABLET GT SCH ×4 (05:45→23:32)
[2018-11-07 08:05] VITALS: BP 107/75
[2018-11-07] MEDS: HYDROGEN PEROXIDE 480 ML BOTTLE TP SCH ×2 (09:00→20:09)
[2018-11-07] MEDS: RANITIDINE GT SCH ×2 (09:22→20:09)
[2018-11-07] MEDS: LEVETIRACETAM SOL (5 ML) 100 MG/ML UDC GT SCH ×2 (09:22→20:09)
[2018-11-07] MEDS: VITAMINS A AND D 56.7 GM TUBE TP SCH ×2 (09:22→20:09)
[2018-11-07] MEDS: Z GUARD REMEDY 4 OZ OINT TP SCH ×2 (09:22→20:09)
[2018-11-07] MEDS: PROSOURCE / PROSTAT (PYXIS) 30 ML UDC JT SCH ×2 (09:22→17:59)
[2018-11-07] MEDS: CLOTRIMAZOLE 1% 15 GM TUBE TP SCH (09:22)
[2018-11-07] MEDS: POLYVINYL ALCOHOL 15 ML BOTTLE EACHEYE SCH ×4 (09:23→20:08)
[2018-11-07] MEDS: POLYETHYLENE GLYCOL 3350 17 GM POWD.PACK GT SCH (21:33)
[2018-11-07 21:49] VITALS: BP 122/63
[2018-11-08] MEDS: ALBUTEROL FS 2.5 MG/3 ML VIAL.NEB NEB SCH ×4 (01:28→20:14)
[2018-11-08] MEDS: ERYTHROMYCIN STEARATE 250 MG TABLET GT SCH ×4 (05:19→23:31)
[2018-11-08] MEDS: HYDROGEN PEROXIDE 480 ML BOTTLE TP SCH ×2 (07:33→21:24)
[2018-11-08 07:54] VITALS: BP 113/69
[2018-11-08] MEDS: VITAMINS A AND D 56.7 GM TUBE TP SCH ×2 (08:58→21:00)
[2018-11-08] MEDS: POLYVINYL ALCOHOL 15 ML BOTTLE EACHEYE SCH ×4 (08:58→21:00)
[2018-11-08] MEDS: Z GUARD REMEDY 4 OZ OINT TP SCH ×2 (08:58→21:00)
[2018-11-08] MEDS: RANITIDINE GT SCH ×2 (08:58→21:00)
[2018-11-08] MEDS: PROSOURCE / PROSTAT (PYXIS) 30 ML UDC JT SCH ×2 (08:58→17:55)
[2018-11-08] MEDS: LEVETIRACETAM SOL (5 ML) 100 MG/ML UDC GT SCH ×2 (08:58→21:00)
[2018-11-08] MEDS: CLOTRIMAZOLE 1% 15 GM TUBE TP SCH (08:58)
--- NOTE | 2018-11-08 13:00 | NUR ---
Seen and examined by Dr. Ledesma, no new order given.
--- NOTE | 2018-11-08 16:08 | NUR ---
RT NOTE: RECEIVED PT ON ORDERED NOTED VENT SETTINGS. NO RESPIRATORY DISTRESS NOTED. TRACH CHECKED SECURE AND PATENT. SXD AND LAVAGED PT Q ROUND AND NEEDED. TXS GIVEN ORDERED WITH NO ADVERSE REACTIONS NOTED. SPARE TRACH AND AMBU BAG @ BEDSIDE. VENT PLUGGED INTO RED OUTLET.
[2018-11-08 19:54] VITALS: BP 91/59
[2018-11-08 20:00] VITALS: BP 91/59
[2018-11-08] MEDS: POLYETHYLENE GLYCOL 3350 17 GM POWD.PACK GT SCH (22:00)
--- NOTE | 2018-11-08 23:53 | NUR ---
RT NOTE PATIENT RECEIVED IN STABLE CONDITION. PATIENT TOLERATING CURRENT ORDERED SETTINGS. NO SIGNS OF RESPIRATORY DISTRESS NOTED. TRACH IS PATENT, MIDLINE AND SECURE. ALARMS ARE ON AND AUDIBLE. MECHANICAL VENT IS PLUGGED INTO RED OUTLET. EMERGENCY EQUIPMENT AT PATIENT BEDSIDE. Addendum: 11/08/18 at 2353 by CHONG JUSTIN RT Amended: Links added.
[2018-11-09] MEDS: ALBUTEROL FS 2.5 MG/3 ML VIAL.NEB NEB SCH ×4 (02:15→19:52)
[2018-11-09] MEDS: ERYTHROMYCIN STEARATE 250 MG TABLET GT SCH ×3 (05:36→17:46)
[2018-11-09] MEDS: JEVITY 1.2 CAL 1,000 ML BOTTLE JT PRN (06:49)
[2018-11-09] MEDS: RANITIDINE GT SCH ×2 (08:47→20:31)
[2018-11-09] MEDS: VITAMINS A AND D 56.7 GM TUBE TP SCH ×2 (08:47→20:31)
[2018-11-09] MEDS: PROSOURCE / PROSTAT (PYXIS) 30 ML UDC JT SCH ×2 (08:47→17:46)
[2018-11-09] MEDS: POLYVINYL ALCOHOL 15 ML BOTTLE EACHEYE SCH ×4 (08:47→20:31)
[2018-11-09] MEDS: CLOTRIMAZOLE 1% 15 GM TUBE TP SCH (08:47)
[2018-11-09] MEDS: LEVETIRACETAM SOL (5 ML) 100 MG/ML UDC GT SCH ×2 (08:47→20:31)
[2018-11-09] MEDS: Z GUARD REMEDY 4 OZ OINT TP SCH ×2 (08:47→20:31)
[2018-11-09] MEDS: HYDROGEN PEROXIDE 480 ML BOTTLE TP SCH ×2 (09:00→19:55)
[2018-11-09 11:51] VITALS: BP 106/63
--- NOTE | 2018-11-09 16:00 | NUR ---
Noted resident's buttocks with open area and per staff, patient is observe reaching in his behind to scratch it. MD notified with order for local treatment and wound consult.
--- NOTE | 2018-11-09 19:52 | NUR ---
RT NOTE: RECEIVED TRACH PT ON [facility] VENT ON NOTED SETTINGS PER MD ORDERS. TRACH IS PATENT AND SECURED. TRACH CARE DONE. COSMETIC MAKER DONE. Q6 BREATHING TX GIVEN WITH NO ADVERSE REACTION NOTED. SX DONE PRN. VENT PLUGGED INTO RED OUTLET. ALARMS ON AND AUDIBLE. ELBERTU BAG @ BEDSIDE. NO RESP DISTRESS AT THIS TIME. WILL CONT TO MONITOR PT. Addendum: 11/09/18 at 2027 by CIRILO LOZOYA RT Amended: Links added.
[2018-11-09] MEDS: POLYETHYLENE GLYCOL 3350 17 GM POWD.PACK GT SCH (22:00)
[2018-11-10] MEDS: ALBUTEROL FS 2.5 MG/3 ML VIAL.NEB NEB SCH ×4 (01:54→20:00)
[2018-11-10] MEDS: ERYTHROMYCIN STEARATE 250 MG TABLET GT SCH ×4 (06:16→17:47)
[2018-11-10] MEDS: JEVITY 1.2 CAL 1,000 ML BOTTLE JT PRN (06:16)
[2018-11-10 07:52] VITALS: BP 98/59
[2018-11-10] MEDS: HYDROGEN PEROXIDE 480 ML BOTTLE TP SCH ×2 (08:17→20:00)
[2018-11-10] MEDS: RANITIDINE GT SCH ×2 (09:50→21:43)
[2018-11-10] MEDS: Z GUARD REMEDY 2 OZ OINT TP SCH ×4 (09:50→21:43)
[2018-11-10] MEDS: POLYVINYL ALCOHOL 15 ML BOTTLE EACHEYE SCH ×4 (09:50→21:43)
[2018-11-10] MEDS: PROSOURCE / PROSTAT (PYXIS) 30 ML UDC JT SCH ×2 (09:50→17:47)
[2018-11-10] MEDS: LEVETIRACETAM SOL (5 ML) 100 MG/ML UDC GT SCH ×2 (09:50→21:43)
[2018-11-10] MEDS: CLOTRIMAZOLE 1% 15 GM TUBE TP SCH (09:50)
[2018-11-10] MEDS: Z GUARD REMEDY 4 OZ OINT TP SCH ×2 (09:51→21:43)
[2018-11-10] MEDS: VITAMINS A AND D 56.7 GM TUBE TP SCH ×2 (09:51→21:43)
--- NOTE | 2018-11-10 20:00 | NUR ---
RT NOTE: RECEIVED TRACH PT ON [facility] VENT ON NOTED SETTINGS PER MD ORDERS. TRACH IS PATENT AND SECURED. TRACH CARE DONE. MEMBERSHIP SECRETARY DONE. Q6 BREATHING TX GIVEN WITH NO ADVERSE REACTION NOTED. SX DONE PRN. VENT PLUGGED INTO RED OUTLET. ALARMS ON AND AUDIBLE. ELBERTU BAG @ BEDSIDE. NO RESP DISTRESS AT THIS TIME. WILL CONT TO MONITOR PT. Addendum: 11/10/18 at 2212 by CIRILO LOZOYA RT Amended: Links added.
[2018-11-10 20:35] VITALS: BP 103/65
[2018-11-10] MEDS: POLYETHYLENE GLYCOL 3350 17 GM POWD.PACK GT SCH (21:43)
[2018-11-11] MEDS: ERYTHROMYCIN STEARATE 250 MG TABLET GT SCH ×5 (00:34→23:20)
[2018-11-11] MEDS: ALBUTEROL FS 2.5 MG/3 ML VIAL.NEB NEB SCH ×4 (02:11→20:17)
[2018-11-11] MEDS: JEVITY 1.2 CAL 1,000 ML BOTTLE JT PRN (05:04)
[2018-11-11 07:46] VITALS: BP 112/70
[2018-11-11] MEDS: HYDROGEN PEROXIDE 480 ML BOTTLE TP SCH ×2 (08:06→21:03)
[2018-11-11] MEDS: POLYVINYL ALCOHOL 15 ML BOTTLE EACHEYE SCH ×4 (09:56→21:03)
[2018-11-11] MEDS: Z GUARD REMEDY 4 OZ OINT TP SCH ×2 (09:57→21:03)
[2018-11-11] MEDS: LEVETIRACETAM SOL (5 ML) 100 MG/ML UDC GT SCH ×2 (09:57→21:03)
[2018-11-11] MEDS: RANITIDINE GT SCH ×2 (09:57→21:03)
[2018-11-11] MEDS: CLOTRIMAZOLE 1% 15 GM TUBE TP SCH (09:57)
[2018-11-11] MEDS: Z GUARD REMEDY 2 OZ OINT TP SCH ×4 (09:57→21:03)
[2018-11-11] MEDS: VITAMINS A AND D 56.7 GM TUBE TP SCH ×2 (09:57→21:03)
[2018-11-11] MEDS: PROSOURCE / PROSTAT (PYXIS) 30 ML UDC JT SCH ×2 (09:57→17:44)
--- NOTE | 2018-11-11 13:30 | NUR ---
Seen and examined by Dr. Tyler Doll, no new order given. Continue on current treatment.
--- NOTE | 2018-11-11 15:37 | NUR ---
RT Pt received trach'd and on vent w ordered settings. Vent is plugged into red outlet w spare trach @ hob. Alarms are set and audible. Trach care done. Pt is stable. No sob or respiratory distress noted through out shift. Will continue to monitor. Addendum: 11/11/18 at 1733 by HUGH LICONA RT Amended: Links added.
[2018-11-11 19:47] VITALS: BP 101/52
[2018-11-11] MEDS: POLYETHYLENE GLYCOL 3350 17 GM POWD.PACK GT SCH (21:03)
[2018-11-12] MEDS: ALBUTEROL FS 2.5 MG/3 ML VIAL.NEB NEB SCH ×4 (01:02→19:17)
--- NOTE | 2018-11-12 03:54 | NUR ---
PT RCVD VANDA'D ON MECHANICAL VENT WITH CHARTED SETTINGS. SX DONE. PT VANDA IS PATENT AND SECURE. VENT PLUGGED INTO RED OUTLET. ALARMS ARE ON AND AUDIBLE. AMBU BAG AT BEDSIDE. Addendum: 11/12/18 at 0355 by STANFORD PETERS RT Amended: Links added.
[2018-11-12] MEDS: ERYTHROMYCIN STEARATE 250 MG TABLET GT SCH ×4 (05:34→23:07)
--- NOTE | 2018-11-12 06:24 | NUR ---
WOUND CARE CONSULT WOUND CARE RECEIVED CONSULT FOR MASD. WOUND CARE WILL DEFER CONSULT TO PLASTIC SURGICAL TEAM WHO ARE CURRENTLY FOLLOWING THIS PATIENT. WILL SEE PRN.
[2018-11-12 07:31] VITALS: BP 106/69
[2018-11-12] MEDS: POLYVINYL ALCOHOL 15 ML BOTTLE EACHEYE SCH ×4 (08:07→21:25)
[2018-11-12] MEDS: PROSOURCE / PROSTAT (PYXIS) 30 ML UDC JT SCH ×2 (08:07→16:57)
[2018-11-12] MEDS: RANITIDINE GT SCH ×2 (08:07→21:36)
[2018-11-12] MEDS: LEVETIRACETAM SOL (5 ML) 100 MG/ML UDC GT SCH ×2 (08:07→21:25)
--- NOTE | 2018-11-12 08:43 | NUR ---
RT PT REC'D TRACH'D ON MECHANICAL VENT WITH CHARTED SETTINGS. NO SOB NOTED AT THIS TIME. PT TRACH IS PATENT AND SECURE. VENT PLUGGED INTO RED OUTLET. ALARMS ARE ON AND AUDIBLE. AMBU BAG AT BEDSIDE. Addendum: 11/12/18 at 0843 by KYM DUEÑAS RT Amended: Links added.
[2018-11-12] MEDS: HYDROGEN PEROXIDE 480 ML BOTTLE TP SCH ×2 (09:00→21:25)
[2018-11-12] MEDS: Z GUARD REMEDY 4 OZ OINT TP SCH ×2 (09:00→21:25)
[2018-11-12] MEDS: Z GUARD REMEDY 2 OZ OINT TP SCH ×4 (09:00→21:25)
[2018-11-12] MEDS: VITAMINS A AND D 56.7 GM TUBE TP SCH ×2 (09:00→21:25)
--- NOTE | 2018-11-12 11:10 | NUR ---
Pt scratching his buttocks and bilateral ischial tuberosities. Dr Tyler Doll ordered to apply Benadryl cream followed by Z-guard on the areas the pt is scratching and noted with MASD. Dr Tyler Doll saw pt yesterday.
[2018-11-12 20:51] VITALS: BP 112/66
[2018-11-12 21:06] VITALS: BP 112/66
[2018-11-12] MEDS: POLYETHYLENE GLYCOL 3350 17 GM POWD.PACK GT SCH (21:25)
[2018-11-13] MEDS: ALBUTEROL FS 2.5 MG/3 ML VIAL.NEB NEB SCH ×4 (01:31→20:00)
[2018-11-13] MEDS: JEVITY 1.2 CAL 1,000 ML BOTTLE JT PRN (04:36)
[2018-11-13] MEDS: ERYTHROMYCIN STEARATE 250 MG TABLET GT SCH ×4 (06:35→23:23)
[2018-11-13 07:43] VITALS: BP 111/74
[2018-11-13] MEDS: PROSOURCE / PROSTAT (PYXIS) 30 ML UDC JT SCH ×2 (08:09→16:53)
[2018-11-13] MEDS: HYDROGEN PEROXIDE 480 ML BOTTLE TP SCH ×2 (08:09→20:00)
[2018-11-13] MEDS: LEVETIRACETAM SOL (5 ML) 100 MG/ML UDC GT SCH ×2 (08:09→20:20)
[2018-11-13] MEDS: POLYVINYL ALCOHOL 15 ML BOTTLE EACHEYE SCH ×4 (08:09→20:20)
[2018-11-13] MEDS: RANITIDINE GT SCH (08:09)
[2018-11-13] MEDS: FAMOTIDINE (20 MG) 20 MG TABLET GT SCH ×2 (09:00→20:20)
[2018-11-13] MEDS: VITAMINS A AND D 56.7 GM TUBE TP SCH ×2 (09:00→20:21)
[2018-11-13] MEDS: Z GUARD REMEDY 4 OZ OINT TP SCH ×2 (09:00→20:21)
[2018-11-13] MEDS: Z GUARD REMEDY 2 OZ OINT TP SCH ×4 (09:00→20:21)
--- NOTE | 2018-11-13 15:28 | NUR ---
Referred resident's GJ tube to [facility]. The GJ tube extension comes loose very often and tends to leak causing redness to GT stoma. According to XAVI Stark, he will discuss this with Dr. Arreola so a permanent tube can be placed. Endorsed.
[2018-11-13 19:51] VITALS: BP 107/70
--- NOTE | 2018-11-13 20:00 | NUR ---
RT NOTE: RECEIVED TRACH PT ON [facility] VENT ON NOTED SETTINGS PER MD ORDERS. TRACH IS PATENT AND SECURED. TRACH CARE DONE. HANDLE FINISHER DONE. Q6 BREATHING TX GIVEN WITH NO ADVERSE REACTION NOTED. SX DONE PRN. VENT PLUGGED INTO RED OUTLET. ALARMS ON AND AUDIBLE. ELBERTU BAG @ BEDSIDE. NO RESP DISTRESS AT THIS TIME. WILL CONT TO MONITOR PT. Addendum: 11/14/18 at 0256 by CIRILO LOZOYA RT Amended: Links added.
[2018-11-13] MEDS: POLYETHYLENE GLYCOL 3350 17 GM POWD.PACK GT SCH (21:46)
[2018-11-14] MEDS: ALBUTEROL FS 2.5 MG/3 ML VIAL.NEB NEB SCH ×4 (01:41→20:02)
[2018-11-14] MEDS: ERYTHROMYCIN STEARATE 250 MG TABLET GT SCH ×3 (05:29→17:29)
[2018-11-14] MEDS: HYDROGEN PEROXIDE 480 ML BOTTLE TP SCH ×2 (07:28→20:18)
[2018-11-14 07:51] VITALS: BP 93/59
[2018-11-14] MEDS: POLYVINYL ALCOHOL 15 ML BOTTLE EACHEYE SCH ×4 (08:17→21:09)
[2018-11-14] MEDS: LEVETIRACETAM SOL (5 ML) 100 MG/ML UDC GT SCH ×2 (08:17→21:10)
[2018-11-14] MEDS: PROSOURCE / PROSTAT (PYXIS) 30 ML UDC JT SCH ×2 (08:17→17:29)
[2018-11-14] MEDS: FAMOTIDINE (20 MG) 20 MG TABLET GT SCH ×2 (08:17→21:50)
[2018-11-14] MEDS: Z GUARD REMEDY 2 OZ OINT TP SCH ×4 (08:18→21:11)
[2018-11-14] MEDS: VITAMINS A AND D 56.7 GM TUBE TP SCH ×2 (09:00→21:11)
[2018-11-14] MEDS: Z GUARD REMEDY 4 OZ OINT TP SCH ×2 (09:00→21:11)
--- NOTE | 2018-11-14 14:21 | NUR ---
TSERING called Poonam Oliver [phone] from Department of [facility] Services (case #[id number]) to follow-up with patients Health Insurance being reinstated. TSERING faxed required paperwork on 11/04/18 and called to verify they received it on 11/05/18 ;see case note. Per Poonam, the paperwork does not show up on her system. TSERING re-faxed paperwork to different fax# [phone], per Blanka request. SW to follow-up to verify they received it.
--- NOTE | 2018-11-14 16:46 | NUR ---
RT NOTE: RECEIVED PT ON ORDERED NOTED VENT SETTINGS. NO RESPIRATORY DISTRESS NOTED. TRACH CHECKED SECURE AND PATENT. SXD AND LAVAGED Q ROUND AND NEEDED. TXS GIVEN ORDERED WITH NO ADVERSE REACTIONS NOTED. TRACH CARE DONE. SPARE TRACH AND AMBU BAG @ BEDSIDE. ALARMS CHECKED. VENT PLUGGED INTO RED OUTLET.
[2018-11-14 19:57] VITALS: BP_SYST 100; BP_SYST 106; BP_DIAS 52; BP_DIAS 57
[2018-11-14 20:00] VITALS: BP 100/57
--- NOTE | 2018-11-14 20:36 | NUR ---
PT RCVD TRACH'D ON MECHANICAL VENT WITH CHARTED SETTINGS. PT BRAULIO TX WELL. SX DONE. PT TRACH IS PATENT AND SECURE. VENT PLUGGED INTO RED OUTLET. ALARMS ARE ON AND AUDIBLE. AMBU BAG AT BEDSIDE. Addendum: 11/14/18 at 2035 by STANFORD PETERS RT Amended: Links added.
[2018-11-14] MEDS: POLYETHYLENE GLYCOL 3350 17 GM POWD.PACK GT SCH (21:13)
[2018-11-15] MEDS: ERYTHROMYCIN STEARATE 250 MG TABLET GT SCH ×5 (00:11→23:50)
[2018-11-15] MEDS: ALBUTEROL FS 2.5 MG/3 ML VIAL.NEB NEB SCH ×4 (01:11→20:13)
[2018-11-15 07:40] VITALS: BP 104/64
[2018-11-15] MEDS: HYDROGEN PEROXIDE 480 ML BOTTLE TP SCH ×2 (08:15→20:14)
[2018-11-15] MEDS: LEVETIRACETAM SOL (5 ML) 100 MG/ML UDC GT SCH ×2 (08:22→20:51)
[2018-11-15] MEDS: POLYVINYL ALCOHOL 15 ML BOTTLE EACHEYE SCH ×4 (08:22→20:51)
[2018-11-15] MEDS: FAMOTIDINE (20 MG) 20 MG TABLET GT SCH ×2 (08:22→20:51)
[2018-11-15] MEDS: PROSOURCE / PROSTAT (PYXIS) 30 ML UDC JT SCH ×2 (08:23→17:51)
[2018-11-15] MEDS: Z GUARD REMEDY 4 OZ OINT TP SCH ×2 (09:00→20:51)
[2018-11-15] MEDS: VITAMINS A AND D 56.7 GM TUBE TP SCH ×2 (09:00→20:51)
[2018-11-15] MEDS: Z GUARD REMEDY 2 OZ OINT TP SCH ×4 (09:00→20:51)
--- NOTE | 2018-11-15 15:46 | NUR ---
TSERING received a call from [facility] from Department of Health Services [phone]. Per Poonam, they have received fax and the case has been processed and they have approved to reinstate the patients insurance benefits. Per Poonam, the changes should be effective in about 3-5 business days. TSERING informed Director.
--- NOTE | 2018-11-15 18:36 | NUR ---
RT NOTE PT ON VENT. NO SOB NOTED. VENT PLUGGED TO RED OUTLET. EXTRA TRACH AT BEDSIDE AND AMBU BAG. NO ADVERSE REACTIONS TO MEDS. TRACH IS PATEN AND CLEAN. SX MODERATE OF CLEAR WHITE AND THIN SECRETIONS. Addendum: 11/15/18 at 1838 by HIMA VILLALOBOS RT Amended: Links added.
[2018-11-15 20:13] VITALS: BP 111/71
--- NOTE | 2018-11-15 20:42 | NUR ---
PT RCVD TRACH'D ON MECHANICAL VENT WITH CHARTED SETTINGS. PT BRAULIO TX WELL. SX DONE. PT TRACH IS PATENT AND SECURE. VENT PLUGGED INTO RED OUTLET. ALARMS ARE ON AND AUDIBLE. AMBU BAG AT BEDSIDE. Addendum: 11/15/18 at 2042 by STANFORD PETERS RT Amended: Links added.
[2018-11-15] MEDS: POLYETHYLENE GLYCOL 3350 17 GM POWD.PACK GT SCH (21:13)
[2018-11-15] MEDS: JEVITY 1.2 CAL 1,000 ML BOTTLE JT PRN (21:14)
[2018-11-16] MEDS: ALBUTEROL FS 2.5 MG/3 ML VIAL.NEB NEB SCH ×4 (00:58→20:01)
[2018-11-16] MEDS: JEVITY 1.2 CAL 1,000 ML BOTTLE JT PRN (04:32)
[2018-11-16] MEDS: ERYTHROMYCIN STEARATE 250 MG TABLET GT SCH ×4 (05:08→23:34)
[2018-11-16 08:00] VITALS: BP 121/69
[2018-11-16] MEDS: FAMOTIDINE (20 MG) 20 MG TABLET GT SCH ×2 (08:03→20:16)
[2018-11-16] MEDS: LEVETIRACETAM SOL (5 ML) 100 MG/ML UDC GT SCH ×2 (08:03→20:16)
[2018-11-16] MEDS: POLYVINYL ALCOHOL 15 ML BOTTLE EACHEYE SCH ×4 (08:03→20:16)
[2018-11-16] MEDS: PROSOURCE / PROSTAT (PYXIS) 30 ML UDC JT SCH ×2 (08:03→16:15)
[2018-11-16] MEDS: VITAMINS A AND D 56.7 GM TUBE TP SCH ×2 (08:04→20:19)
[2018-11-16] MEDS: Z GUARD REMEDY 4 OZ OINT TP SCH ×2 (08:04→20:19)
[2018-11-16] MEDS: Z GUARD REMEDY 2 OZ OINT TP SCH ×4 (08:04→20:18)
[2018-11-16] MEDS: HYDROGEN PEROXIDE 480 ML BOTTLE TP SCH ×2 (08:11→20:17)
[2018-11-16 20:31] VITALS: BP 99/56
[2018-11-16] MEDS: POLYETHYLENE GLYCOL 3350 17 GM POWD.PACK GT SCH (21:13)
[2018-11-17] MEDS: ALBUTEROL FS 2.5 MG/3 ML VIAL.NEB NEB SCH ×4 (01:34→19:31)
[2018-11-17] MEDS: JEVITY 1.2 CAL 1,000 ML BOTTLE JT PRN (05:40)
[2018-11-17] MEDS: ERYTHROMYCIN STEARATE 250 MG TABLET GT SCH ×3 (05:40→18:58)
--- NOTE | 2018-11-17 06:06 | NUR ---
RT PATIENT WAS RECEIVED ON CONTINUOUS VENT SUPPORT ON NOTED VENT SETTINGS.AIRWAY PATENT AND SECURED. PATIENT STABLE THROUGHOUT TH E SHIFT.WILL CONTINUE TO MONITOR. Addendum: 11/17/18 at 0606 by HARLEY MUNIZ RT Amended: Links added.
[2018-11-17 07:47] VITALS: BP 101/56
[2018-11-17] MEDS: Z GUARD REMEDY 2 OZ OINT TP SCH ×4 (09:00→21:07)
[2018-11-17] MEDS: HYDROGEN PEROXIDE 480 ML BOTTLE TP SCH ×2 (09:00→21:07)
[2018-11-17] MEDS: POLYVINYL ALCOHOL 15 ML BOTTLE EACHEYE SCH ×4 (09:00→21:07)
[2018-11-17] MEDS: FAMOTIDINE (20 MG) 20 MG TABLET GT SCH ×2 (09:00→21:07)
[2018-11-17] MEDS: LEVETIRACETAM SOL (5 ML) 100 MG/ML UDC GT SCH ×2 (09:00→21:07)
[2018-11-17] MEDS: Z GUARD REMEDY 4 OZ OINT TP SCH ×2 (09:00→21:07)
[2018-11-17] MEDS: VITAMINS A AND D 56.7 GM TUBE TP SCH ×2 (09:00→21:07)
[2018-11-17] MEDS: PROSOURCE / PROSTAT (PYXIS) 30 ML UDC JT SCH ×2 (09:00→16:22)
--- NOTE | 2018-11-17 15:04 | NUR ---
Received a call from tunnel heading supervisor Oziel Duggan, she was informed by Radha from Dr. Arreola office that patient will have EGD/GT/JT on Sunday11/18/18. Consent form was obtained by telephone with 2 licensed signatures. New orders were obtained by Dr. Cristofer LUDWIG starting at midnight, IVF d5 NS @80ML/ starting at midnight, orders carried out and responsible democrat made aware.
[2018-11-17] MEDS ORDERED: IV D5/ 0.9% NACL 1,000 ML IV PRN (16:30)
[2018-11-17] MEDS: POLYETHYLENE GLYCOL 3350 17 GM POWD.PACK GT SCH (21:07)
[2018-11-17 21:08] VITALS: BP 120/72
--- NOTE | 2018-11-18 | NUR ---
RN NOTES Pt placed on NPO as ordered. Started on D5NS @ 80ml/hr. Will continue to monitor pt.
[2018-11-18] MEDS: ERYTHROMYCIN STEARATE 250 MG TABLET GT SCH ×5 (00:08→23:00)
[2018-11-18] MEDS: ALBUTEROL FS 2.5 MG/3 ML VIAL.NEB NEB SCH ×4 (01:37→19:23)
--- NOTE | 2018-11-18 05:14 | NUR ---
RT PATIENT WAS RECEIVED ON CONTINUOUS VENT SUPPORT ON NOTED VENT SETTINGS.ALARMS ARE SET AND AUDIBLE.AIRWAY PATENT AND SECURED. PATIENT STABLE AND TOLERATED CURRENT VENT SETTINGS.WILL CONTINUE TO MONITOR. Addendum: 11/18/18 at 0515 by HARLEY MUNIZ RT Amended: Links added.
[2018-11-18 07:53] VITALS: BP 123/87
[2018-11-18] MEDS: PROSOURCE / PROSTAT (PYXIS) 30 ML UDC JT SCH ×2 (09:00→16:36)
[2018-11-18] MEDS: LEVETIRACETAM SOL (5 ML) 100 MG/ML UDC GT SCH ×2 (09:00→21:11)
[2018-11-18] MEDS: FAMOTIDINE (20 MG) 20 MG TABLET GT SCH ×2 (09:00→21:11)
[2018-11-18] MEDS: HYDROGEN PEROXIDE 480 ML BOTTLE TP SCH ×2 (09:00→21:11)
[2018-11-18] MEDS: POLYVINYL ALCOHOL 15 ML BOTTLE EACHEYE SCH ×4 (09:31→21:11)
[2018-11-18] MEDS: VITAMINS A AND D 56.7 GM TUBE TP SCH ×2 (09:32→21:11)
[2018-11-18] MEDS: Z GUARD REMEDY 4 OZ OINT TP SCH ×2 (09:32→21:11)
[2018-11-18] MEDS: Z GUARD REMEDY 2 OZ OINT TP SCH ×4 (09:32→21:11)
--- NOTE | 2018-11-18 09:40 | NUR ---
Pt had an EGD with GT placement done. Dr Arreola removed pt's JG-tube and replaced it with a G-tube Bard Fr 18 x 20 mL. No sedative was given to pt and he tolerated procedure well. Notified pt's father. Addendum: 11/18/18 at 1034 by AMA EL RN Dr Arreola ordered to resume all orders prior to EGD and he said the new G-tube may be used starting at 10am today.
[2018-11-18] MEDS: JEVITY 1.2 CAL 1,000 ML BOTTLE JT PRN (12:18)
--- NOTE | 2018-11-18 17:40 | NUR ---
RT NOTE PT. RECEIVED ON MECH. VENT WITH NOTED SETTINGS. ALARMS ARE SET AND AUDIBLE. VENT. PLUGGED INTO THE RED OUTLET. AMBU BAG AND SPARE TRACH IS AT BEDSIDE. NO SOB NOTE PT. IS COMFORTABLE. SX SMALL WHITE CLEAR THIN SECRETIONS T/O THE DAY. PT TOLERATED TX'S WELL, NO ADV REACTIONS. TRACHEOSTOMY TUBE IS PATENT AND SECURED. TRACH CARE DONE.
[2018-11-18 19:51] VITALS: BP 116/60
[2018-11-18] MEDS: POLYETHYLENE GLYCOL 3350 17 GM POWD.PACK GT SCH (21:11)
[2018-11-19] MEDS: ALBUTEROL FS 2.5 MG/3 ML VIAL.NEB NEB SCH ×4 (00:53→19:58)
[2018-11-19] MEDS: ERYTHROMYCIN STEARATE 250 MG TABLET GT SCH ×4 (06:02→23:50)
[2018-11-19 08:00] VITALS: BP 99/60
[2018-11-19] MEDS: FAMOTIDINE (20 MG) 20 MG TABLET GT SCH ×2 (08:17→21:15)
[2018-11-19] MEDS: LEVETIRACETAM SOL (5 ML) 100 MG/ML UDC GT SCH ×2 (08:17→21:15)
[2018-11-19] MEDS: PROSOURCE / PROSTAT (PYXIS) 30 ML UDC JT SCH ×2 (08:17→17:00)
[2018-11-19] MEDS: POLYVINYL ALCOHOL 15 ML BOTTLE EACHEYE SCH ×4 (08:17→21:15)
[2018-11-19] MEDS: VITAMINS A AND D 56.7 GM TUBE TP SCH ×2 (09:00→21:16)
[2018-11-19] MEDS: Z GUARD REMEDY 4 OZ OINT TP SCH ×2 (09:00→21:15)
[2018-11-19] MEDS: Z GUARD REMEDY 2 OZ OINT TP SCH ×4 (09:00→21:15)
[2018-11-19] MEDS: HYDROGEN PEROXIDE 480 ML BOTTLE TP SCH ×2 (09:58→19:58)
--- NOTE | 2018-11-19 10:01 | NUR ---
RT PT REC'D TRACH'D ON MECHANICAL VENT WITH CHARTED SETTINGS. NO SOB NOTED AT THIS TIME. VENT PLUGGED INTO RED OUTLET. ALARMS ARE ON AND AUDIBLE. AMBU BAG AT BEDSIDE. Addendum: 11/19/18 at 1001 by KYM DUEÑSA RT Amended: Links added.
[2018-11-19] MEDS: JEVITY 1.2 CAL 1,000 ML BOTTLE JT PRN (12:12)
--- NOTE | 2018-11-19 14:24 | NUR ---
TSERING left patients family a voicemail (Jimgreyusha Hedonta [phone]) inviting them to attend or participate via phone conference in the October IDT meeting taking place this Thursday, November 22, 2018 from 12:30pm-1:30pm in the SA activities room.
--- NOTE | 2018-11-19 19:58 | NUR ---
RT NOTE: RECEIVED TRACH PT ON [facility] VENT ON NOTED SETTINGS PER MD ORDERS. TRACH IS PATENT AND SECURED. TRACH CARE DONE. HOME CARE ASSISTANT DONE. Q6 BREATHING TX GIVEN WITH NO ADVERSE REACTION NOTED. SX DONE PRN. VENT PLUGGED INTO RED OUTLET. ALARMS ON AND AUDIBLE. ELBERTU BAG @ BEDSIDE. NO RESP DISTRESS AT THIS TIME. WILL CONT TO MONITOR PT. Addendum: 11/20/18 at 0236 by CIRILO LOZOYA RT Amended: Links added.
[2018-11-19] MEDS: POLYETHYLENE GLYCOL 3350 17 GM POWD.PACK GT SCH (21:16)
[2018-11-20] MEDS: ALBUTEROL FS 2.5 MG/3 ML VIAL.NEB NEB SCH ×4 (01:48→19:46)
[2018-11-20] MEDS: ERYTHROMYCIN STEARATE 250 MG TABLET GT SCH ×4 (05:48→23:29)
[2018-11-20] MEDS: HYDROGEN PEROXIDE 480 ML BOTTLE TP SCH ×2 (08:06→19:46)
[2018-11-20 08:09] VITALS: BP 114/59
[2018-11-20] MEDS: Z GUARD REMEDY 2 OZ OINT TP SCH ×4 (09:00→20:59)
[2018-11-20] MEDS: VITAMINS A AND D 56.7 GM TUBE TP SCH ×2 (09:00→20:59)
[2018-11-20] MEDS: Z GUARD REMEDY 4 OZ OINT TP SCH ×2 (09:00→20:59)
[2018-11-20] MEDS: PROSOURCE / PROSTAT (PYXIS) 30 ML UDC JT SCH ×2 (09:34→17:46)
[2018-11-20] MEDS: POLYVINYL ALCOHOL 15 ML BOTTLE EACHEYE SCH ×4 (09:34→20:59)
[2018-11-20] MEDS: FAMOTIDINE (20 MG) 20 MG TABLET GT SCH ×2 (09:34→20:59)
[2018-11-20] MEDS: LEVETIRACETAM SOL (5 ML) 100 MG/ML UDC GT SCH ×2 (09:34→20:59)
[2018-11-20] MEDS: JEVITY 1.2 CAL 1,000 ML BOTTLE JT PRN (16:07)
--- NOTE | 2018-11-20 17:16 | NUR ---
RT NOTE PATIENT RECEIVED ON MECHANICAL VENT WITH NOTED SETTINGS PER MD ORDERS. ALARMS ARE SET AND AUDIBLE AND PLUGGED TO RED OUTLET. TRACH IS PATENT AND SECURED AND VENEER JOINTER OPERATOR DONE. EXTRA TRACH IS AT BEDSIDE. BVM IS AT BEDSIDE. Q6 TREATMENTS GIVEN WITH NO ADVERSE REACTIONS. SUCTION SMALL WHITE THIN SECRETIONS PRN. HEART RATE AND SATURATIONS WERE WITHIN NORMAL VALUES. BREATH SOUNDS WERE COARSE TROUGH OUT THE DAY. TRACH CARE WAS DONE. NO RESPIRATORY DISTRESS NOTED.
--- NOTE | 2018-11-20 19:47 | NUR ---
RT NOTE: RECEIVED TRACH PT ON [facility] VENT ON NOTED SETTINGS PER MD ORDERS. TRACH IS PATENT AND SECURED. TRACH CARE DONE. LOCOMOTIVE SUPERVISOR DONE. Q6 BREATHING TX GIVEN WITH NO ADVERSE REACTION NOTED. SX DONE PRN. VENT PLUGGED INTO RED OUTLET. ALARMS ON AND AUDIBLE. RAGHU BAG @ BEDSIDE. NO RESP DISTRESS AT THIS TIME. WILL CONT TO MONITOR PT. Addendum: 11/21/18 at 0240 by CIRILO LOZOYA RT Amended: Links added.
[2018-11-20 19:55] VITALS: BP 112/59
[2018-11-20] MEDS: POLYETHYLENE GLYCOL 3350 17 GM POWD.PACK GT SCH (21:05)
[2018-11-21] MEDS: ALBUTEROL FS 2.5 MG/3 ML VIAL.NEB NEB SCH ×4 (01:42→20:15)
[2018-11-21] MEDS: ERYTHROMYCIN STEARATE 250 MG TABLET GT SCH ×4 (05:24→23:33)
[2018-11-21 07:43] VITALS: BP 116/66
[2018-11-21] MEDS: HYDROGEN PEROXIDE 480 ML BOTTLE TP SCH ×2 (08:09→20:16)
[2018-11-21] MEDS: VITAMINS A AND D 56.7 GM TUBE TP SCH ×2 (09:00→21:50)
[2018-11-21] MEDS: Z GUARD REMEDY 2 OZ OINT TP SCH ×4 (09:00→21:50)
[2018-11-21] MEDS: LEVETIRACETAM SOL (5 ML) 100 MG/ML UDC GT SCH ×2 (09:00→20:01)
[2018-11-21] MEDS: Z GUARD REMEDY 4 OZ OINT TP SCH (09:00)
[2018-11-21] MEDS: POLYVINYL ALCOHOL 15 ML BOTTLE EACHEYE SCH ×4 (09:00→20:01)
[2018-11-21] MEDS: FAMOTIDINE (20 MG) 20 MG TABLET GT SCH ×2 (09:00→20:01)
[2018-11-21] MEDS: PROSOURCE / PROSTAT (PYXIS) 30 ML UDC JT SCH ×2 (09:00→17:00)
[2018-11-21] MEDS: JEVITY 1.2 CAL 1,000 ML BOTTLE JT PRN (17:11)
--- NOTE | 2018-11-21 18:34 | NUR ---
RT NOTE PATIENT RECEIVED ON MECHANICAL VENT WITH NOTED SETTINGS PER MD ORDERS. ALARMS ARE SET AND AUDIBLE AND PLUGGED TO RED OUTLET. TRACH IS PATENT AND SECURED AND STOPPERER ASSEMBLER DONE. EXTRA TRACH IS AT BEDSIDE. BVM IS AT BEDSIDE. Q6 TREATMENTS GIVEN WITH NO ADVERSE REACTIONS. SUCTION MODERATE CLEAR THIN SECRETIONS PRN. HEART RATE AND SATURATIONS WERE WITHIN NORMAL VALUES. BREATH SOUNDS WERE COARSE TROUGH OUT THE DAY. TRACH CARE WAS DONE. NO RESPIRATORY DISTRESS NOTED. VENTILATOR CIRCUIT WAS CHANGED DUE TO FAULTY EXHALATION VALVE.
[2018-11-21 20:04] VITALS: BP 98/61
[2018-11-21] MEDS: POLYETHYLENE GLYCOL 3350 17 GM POWD.PACK GT SCH (21:50)
[2018-11-21 23:13] VITALS: BP 98/61
--- NOTE | 2018-11-21 23:53 | NUR ---
PT RCVD TRACH'D ON MECHANICAL VENT WITH CHARTED SETTINGS. PT BRAULIO TX WELL. SX DONE. PT TRACH IS PATENT AND SECURE. VENT PLUGGED INTO RED OUTLET. ALARMS ARE ON AND AUDIBLE. AMBU BAG AT BEDSIDE. Addendum: 11/21/18 at 2353 by STANFORD PETERS RT Amended: Links added.
[2018-11-22] MEDS: ALBUTEROL FS 2.5 MG/3 ML VIAL.NEB NEB SCH ×4 (00:50→19:46)
[2018-11-22] MEDS: ERYTHROMYCIN STEARATE 250 MG TABLET GT SCH ×3 (06:12→17:02)
[2018-11-22 07:55] VITALS: BP 97/55
[2018-11-22] MEDS: FAMOTIDINE (20 MG) 20 MG TABLET GT SCH ×2 (08:22→20:58)
[2018-11-22] MEDS: PROSOURCE / PROSTAT (PYXIS) 30 ML UDC JT SCH ×2 (08:22→16:53)
[2018-11-22] MEDS: LEVETIRACETAM SOL (5 ML) 100 MG/ML UDC GT SCH ×2 (08:22→20:58)
[2018-11-22] MEDS: POLYVINYL ALCOHOL 15 ML BOTTLE EACHEYE SCH ×4 (08:22→20:58)
[2018-11-22] MEDS: VITAMINS A AND D 56.7 GM TUBE TP SCH ×2 (08:23→20:58)
[2018-11-22] MEDS: Z GUARD REMEDY 2 OZ OINT TP SCH ×4 (08:23→20:58)
[2018-11-22] MEDS: HYDROGEN PEROXIDE 480 ML BOTTLE TP SCH ×2 (09:00→20:10)
--- NOTE | 2018-11-22 14:36 | NUR ---
INTERDISCIPLINARY PLAN OF CARE CONFERENCE was held today Resident's Aunt, Clif [phone] unable to attend or participate via phone conference. Dr. Cleveland and the interdisciplinary team discussed the current plan of care in detail. Current orders as well as treatments and medications were reviewed. Charge Nurse discussed G-tube change and MASD on buttocks. Per charge nurse, the patient remains stable. See other discipline's IDT notes for further details.
--- NOTE | 2018-11-22 17:35 | NUR ---
RT NOTE PT REMAINS MECHANICALLY VENTILATED VIA CUFFED TRACHEOSTOMY TUBE. SETTINGS PRESCRIBED. ALARMS SET PER PROTOCOL AND AUDIBLE. VENT PLUGGED IN RED OUTLET. AMBU BAG AT BED SIDE. NO DISTRESS NOTED. PT AWAKE AND ALERT. Addendum: 11/22/18 at 1736 by GLENIS MUNIZ RT Amended: Links added.
[2018-11-22] MEDS: JEVITY 1.2 CAL 1,000 ML BOTTLE JT PRN (17:51)
--- NOTE | 2018-11-22 20:19 | NUR ---
PT RCVD TRACH'D ON MECHANICAL VENT WITH CHARTED SETTINGS. PT BRAULIO TX WELL. SX DONE. PT TRACH IS PATENT AND SECURE. VENT PLUGGED INTO RED OUTLET. ALARMS ARE ON AND AUDIBLE. AMBU BAG AT BEDSIDE. Addendum: 11/22/18 at 2019 by STANFORD PETERS RT Amended: Links added.
[2018-11-22 20:41] VITALS: BP 99/54
[2018-11-22] MEDS: POLYETHYLENE GLYCOL 3350 17 GM POWD.PACK GT SCH (21:00)
[2018-11-23] MEDS: ALBUTEROL FS 2.5 MG/3 ML VIAL.NEB NEB SCH ×4 (00:54→20:13)
[2018-11-23] MEDS: ERYTHROMYCIN STEARATE 250 MG TABLET GT SCH ×4 (05:07→17:35)
[2018-11-23 07:58] VITALS: BP 137/72
[2018-11-23] MEDS: Z GUARD REMEDY 2 OZ OINT TP SCH ×4 (09:00→21:08)
[2018-11-23] MEDS: VITAMINS A AND D 56.7 GM TUBE TP SCH ×2 (09:00→21:08)
[2018-11-23] MEDS: LEVETIRACETAM SOL (5 ML) 100 MG/ML UDC GT SCH ×2 (09:00→21:08)
[2018-11-23] MEDS: FAMOTIDINE (20 MG) 20 MG TABLET GT SCH ×2 (09:00→21:08)
[2018-11-23] MEDS: PROSOURCE / PROSTAT (PYXIS) 30 ML UDC JT SCH ×2 (09:00→17:35)
[2018-11-23] MEDS: POLYVINYL ALCOHOL 15 ML BOTTLE EACHEYE SCH ×4 (09:00→21:09)
[2018-11-23 20:12] VITALS: BP 95/57
[2018-11-23] MEDS: HYDROGEN PEROXIDE 480 ML BOTTLE TP SCH (20:13)
[2018-11-23] MEDS: POLYETHYLENE GLYCOL 3350 17 GM POWD.PACK GT SCH (21:08)
[2018-11-24] MEDS: ERYTHROMYCIN STEARATE 250 MG TABLET GT SCH ×4 (00:14→18:04)
[2018-11-24] MEDS: ALBUTEROL FS 2.5 MG/3 ML VIAL.NEB NEB SCH ×4 (01:31→19:53)
[2018-11-24 07:45] VITALS: BP 104/65
[2018-11-24] MEDS: POLYVINYL ALCOHOL 15 ML BOTTLE EACHEYE SCH ×4 (09:25→20:46)
[2018-11-24] MEDS: PROSOURCE / PROSTAT (PYXIS) 30 ML UDC JT SCH ×2 (09:25→17:00)
[2018-11-24] MEDS: LEVETIRACETAM SOL (5 ML) 100 MG/ML UDC GT SCH ×2 (09:25→20:46)
[2018-11-24] MEDS: FAMOTIDINE (20 MG) 20 MG TABLET GT SCH ×2 (09:25→20:49)
[2018-11-24] MEDS: VITAMINS A AND D 56.7 GM TUBE TP SCH ×2 (09:26→20:50)
[2018-11-24] MEDS: Z GUARD REMEDY 2 OZ OINT TP SCH ×4 (09:26→20:50)
[2018-11-24] MEDS: HYDROGEN PEROXIDE 480 ML BOTTLE TP SCH ×2 (16:22→19:53)
--- NOTE | 2018-11-24 19:53 | NUR ---
RT NOTE: RECEIVED TRACH PT ON [facility] VENT ON NOTED SETTINGS PER MD ORDERS. TRACH IS PATENT AND SECURED. TRACH CARE DONE. CORRECTIONAL THERAPY DIRECTOR DONE. Q6 BREATHING TX GIVEN WITH NO ADVERSE REACTION NOTED. SX DONE PRN. VENT PLUGGED INTO RED OUTLET. ALARMS ON AND AUDIBLE. ELBERTU BAG @ BEDSIDE. NO RESP DISTRESS AT THIS TIME. WILL CONT TO MONITOR PT. Addendum: 11/25/18 at 0235 by CIRILO LOZOYA RT Amended: Links added.
[2018-11-24 20:17] VITALS: BP 98/69
[2018-11-24] MEDS: POLYETHYLENE GLYCOL 3350 17 GM POWD.PACK GT SCH (21:41)
[2018-11-25] MEDS: ERYTHROMYCIN STEARATE 250 MG TABLET GT SCH ×4 (00:28→18:10)
[2018-11-25] MEDS: ALBUTEROL FS 2.5 MG/3 ML VIAL.NEB NEB SCH ×4 (01:49→19:06)
[2018-11-25] MEDS: JEVITY 1.2 CAL 1,000 ML BOTTLE JT PRN (01:55)
[2018-11-25 07:50] VITALS: BP 117/69
--- NOTE | 2018-11-25 08:50 | NUR ---
RT NOTE: REC'D TRACH PT ON [facility] VENT ON NOTED SETTINGS PER MD ORDERS. TABLE HAND DONE. Q6 BREATHING TX GIVEN WITH NO ADVERSE REACTION NOTED. SX DONE PRN. VENT PLUGGED INTO RED OUTLET. ALARMS ON AND AUDIBLE. RAGHU BAG @ BEDSIDE. NO SOB AT THIS TIME. WILL CONT TO MONITOR. Addendum: 11/25/18 at 0850 by KYM DUEÑAS RT Amended: Links added.
[2018-11-25] MEDS: VITAMINS A AND D 56.7 GM TUBE TP SCH ×2 (09:00→20:55)
[2018-11-25] MEDS: FAMOTIDINE (20 MG) 20 MG TABLET GT SCH ×2 (09:00→20:54)
[2018-11-25] MEDS: HYDROGEN PEROXIDE 480 ML BOTTLE TP SCH ×2 (09:00→21:00)
[2018-11-25] MEDS: POLYVINYL ALCOHOL 15 ML BOTTLE EACHEYE SCH ×4 (09:00→20:52)
[2018-11-25] MEDS: PROSOURCE / PROSTAT (PYXIS) 30 ML UDC JT SCH ×2 (09:00→17:00)
[2018-11-25] MEDS: LEVETIRACETAM SOL (5 ML) 100 MG/ML UDC GT SCH ×2 (09:00→20:52)
[2018-11-25] MEDS: Z GUARD REMEDY 2 OZ OINT TP SCH ×4 (09:00→20:55)
[2018-11-25 21:09] VITALS: BP 116/72
[2018-11-25] MEDS: POLYETHYLENE GLYCOL 3350 17 GM POWD.PACK GT SCH (21:36)
[2018-11-26] MEDS: ERYTHROMYCIN STEARATE 250 MG TABLET GT SCH ×5 (00:24→23:49)
[2018-11-26] MEDS: ALBUTEROL FS 2.5 MG/3 ML VIAL.NEB NEB SCH ×4 (00:43→20:09)
[2018-11-26] MEDS: JEVITY 1.2 CAL 1,000 ML BOTTLE JT PRN (03:29)
--- NOTE | 2018-11-26 08:13 | NUR ---
PT RECEIVED TRACHED ON MECHANICAL VENT W/ SETTINGS PER MD. VENT IN RED OUTLET, AMBUBAG AT BEDSIDE, VENT ALARMS CHECKED AND AUDIBLE. TRACH TUBE PATENT, SECURE. SPARE TRACH AT BEDSIDE. BS EQUAL, DIMINISHED. PT SX'ED AND LAVAGED Q2 AND PRN. MEDS GIVEN INLINE PER MD ORDER. NO RESP DISTRESS NOTED AT THIS TIME. PLAN IS CONTINUE CARE UNDER CURRENT MD ORDERS AND MONITOR FOR CHANGES. Addendum: 11/26/18 at 0813 by MANISH OLVIO RT Amended: Links added.
[2018-11-26] MEDS: Z GUARD REMEDY 2 OZ OINT TP SCH ×4 (08:14→21:30)
[2018-11-26] MEDS: LEVETIRACETAM SOL (5 ML) 100 MG/ML UDC GT SCH ×2 (08:14→21:30)
[2018-11-26] MEDS: PROSOURCE / PROSTAT (PYXIS) 30 ML UDC JT SCH ×2 (08:14→17:09)
[2018-11-26] MEDS: VITAMINS A AND D 56.7 GM TUBE TP SCH ×2 (08:14→21:30)
[2018-11-26] MEDS: FAMOTIDINE (20 MG) 20 MG TABLET GT SCH ×2 (08:14→21:30)
[2018-11-26] MEDS: POLYVINYL ALCOHOL 15 ML BOTTLE EACHEYE SCH ×4 (08:14→21:30)
[2018-11-26] MEDS: HYDROGEN PEROXIDE 480 ML BOTTLE TP SCH ×2 (08:16→21:00)
--- NOTE | 2018-11-26 08:39 | NUR ---
SW left voicemail reminder for pt.s Aunt Hrchooe [phone] and the pt.s father, Asuncion regarding November family support group taking place 11/27/18 from 11am-12pm. Per Hrchooe, they will not be able to make it to the November family support group.
[2018-11-26 10:26] VITALS: BP 109/68
[2018-11-26 20:27] VITALS: BP 113/72
[2018-11-26] MEDS: POLYETHYLENE GLYCOL 3350 17 GM POWD.PACK GT SCH (21:30)
--- NOTE | 2018-11-26 22:57 | NUR ---
RT NOTE PT RECEIVED TRACHED ON MECHANICAL VENTILATION. AWAKE/ALERT. PORTEX [address] AMBU BAG/BACK UP TRACH @ BEDSIDE. TX GIVEN, NO ADVERSE REACTIONS NOTED. SX DONE, TRACH SECURED AND PATENT. ALARMS ON AND AUDIBLE. CONT. POX CONNECTED. NO SOB NOTED. WILL MONITOR T/O SHIFT. Addendum: 11/26/18 at 2258 by MILAN CARRASCO RT Amended: Links added.
[2018-11-27] MEDS: ALBUTEROL FS 2.5 MG/3 ML VIAL.NEB NEB SCH ×4 (02:18→19:43)
[2018-11-27] MEDS: ERYTHROMYCIN STEARATE 250 MG TABLET GT SCH ×4 (05:01→23:34)
[2018-11-27 08:05] VITALS: BP 122/78
[2018-11-27] MEDS: HYDROGEN PEROXIDE 480 ML BOTTLE TP SCH ×2 (09:00→19:43)
[2018-11-27] MEDS: VITAMINS A AND D 56.7 GM TUBE TP SCH ×2 (09:34→21:10)
[2018-11-27] MEDS: Z GUARD REMEDY 2 OZ OINT TP SCH ×4 (09:34→21:10)
[2018-11-27] MEDS: PROSOURCE / PROSTAT (PYXIS) 30 ML UDC JT SCH ×2 (09:34→17:09)
[2018-11-27] MEDS: LEVETIRACETAM SOL (5 ML) 100 MG/ML UDC GT SCH ×2 (09:34→21:09)
[2018-11-27] MEDS: FAMOTIDINE (20 MG) 20 MG TABLET GT SCH ×2 (09:34→21:09)
[2018-11-27] MEDS: POLYVINYL ALCOHOL 15 ML BOTTLE EACHEYE SCH ×4 (09:35→21:09)
--- NOTE | 2018-11-27 11:47 | NUR ---
Resident's father at bedside and obtain consent for flu vaccine administration. Dr. Cleveland gave an order for flu vaccine administration.
[2018-11-27] MEDS: JEVITY 1.2 CAL 1,000 ML BOTTLE JT PRN (12:28)
--- NOTE | 2018-11-27 19:43 | NUR ---
RT NOTE: RECEIVED TRACH PT ON [facility] VENT ON NOTED SETTINGS PER MD ORDERS. TRACH IS PATENT AND SECURED. TRACH CARE DONE. HOMOGENIZER OPERATOR DONE. Q6 BREATHING TX GIVEN WITH NO ADVERSE REACTION NOTED. SX DONE PRN. VENT PLUGGED INTO RED OUTLET. ALARMS ON AND AUDIBLE. ELBERTU BAG @ BEDSIDE. NO RESP DISTRESS AT THIS TIME. WILL CONT TO MONITOR PT. Addendum: 11/28/18 at 0233 by CIRILO LOZOYA RT Amended: Links added.
[2018-11-27 20:34] VITALS: BP 98/68
[2018-11-27] MEDS: POLYETHYLENE GLYCOL 3350 17 GM POWD.PACK GT SCH (21:10)
[2018-11-28] MEDS: ALBUTEROL FS 2.5 MG/3 ML VIAL.NEB NEB SCH ×4 (01:29→19:54)
[2018-11-28] MEDS: ERYTHROMYCIN STEARATE 250 MG TABLET GT SCH ×4 (05:08→23:08)
[2018-11-28 08:14] VITALS: BP 104/69
[2018-11-28] MEDS: Z GUARD REMEDY 2 OZ OINT TP SCH ×4 (09:00→20:35)
--- NOTE | 2018-11-28 09:12 | NUR ---
RT NOTE: REC'D TRACH PT ON [facility] VENT ON NOTED SETTINGS PER MD ORDERS. SCHOOL PRINCIPAL DONE. Q6 BREATHING TX GIVEN WITH NO ADVERSE REACTION NOTED. SX DONE PRN. VENT PLUGGED INTO RED OUTLET. ALARMS ON AND AUDIBLE. RAGHU BAG @ BEDSIDE. NO SOB AT THIS TIME. WILL CONT TO MONITOR. Addendum: 11/28/18 at 0913 by KYM DUEÑAS RT Amended: Links added.
[2018-11-28] MEDS: HYDROGEN PEROXIDE 480 ML BOTTLE TP SCH ×2 (09:16→19:54)
[2018-11-28] MEDS: LEVETIRACETAM SOL (5 ML) 100 MG/ML UDC GT SCH ×2 (09:31→20:33)
[2018-11-28] MEDS: POLYVINYL ALCOHOL 15 ML BOTTLE EACHEYE SCH ×4 (09:31→20:33)
[2018-11-28] MEDS: FAMOTIDINE (20 MG) 20 MG TABLET GT SCH ×2 (09:31→20:33)
[2018-11-28] MEDS: PROSOURCE / PROSTAT (PYXIS) 30 ML UDC JT SCH ×2 (09:31→17:43)
[2018-11-28] MEDS: VITAMINS A AND D 56.7 GM TUBE TP SCH ×2 (09:32→20:35)
--- NOTE | 2018-11-28 16:22 | NUR ---
November Family Support Group: Patient's family was unable to attend. SW will invite family to the December Family Support Group.
--- NOTE | 2018-11-28 19:25 | NUR ---
Seen and examined by XAVI JIN.
[2018-11-28 19:44] VITALS: BP 100/59
--- NOTE | 2018-11-28 19:55 | NUR ---
RT NOTE: RECEIVED TRACH PT ON [facility] VENT ON NOTED SETTINGS PER MD ORDERS. TRACH IS PATENT AND SECURED. TRACH CARE DONE. MANAGER INSTALLATION DONE. Q6 BREATHING TX GIVEN WITH NO ADVERSE REACTION NOTED. SX DONE PRN. VENT PLUGGED INTO RED OUTLET. ALARMS ON AND AUDIBLE. ELBERTU BAG @ BEDSIDE. NO RESP DISTRESS AT THIS TIME. WILL CONT TO MONITOR PT. Addendum: 11/29/18 at 0213 by CIRILO LOZOYA RT Amended: Links added.
[2018-11-28] MEDS: diphenhydrAMINE HCL/ZINC ACET CREAM 28.3 GM TUBE TP SCH ×2 (20:34)
[2018-11-28] MEDS: POLYETHYLENE GLYCOL 3350 17 GM POWD.PACK GT SCH (21:25)
[2018-11-29] MEDS: ALBUTEROL FS 2.5 MG/3 ML VIAL.NEB NEB SCH ×4 (01:36→20:19)
[2018-11-29] MEDS: ERYTHROMYCIN STEARATE 250 MG TABLET GT SCH ×3 (05:26→18:01)
[2018-11-29] MEDS: diphenhydrAMINE HCL/ZINC ACET CREAM 28.3 GM TUBE TP SCH ×4 (09:00→21:08)
[2018-11-29] MEDS: POLYVINYL ALCOHOL 15 ML BOTTLE EACHEYE SCH ×4 (09:00→21:08)
[2018-11-29] MEDS: VITAMINS A AND D 56.7 GM TUBE TP SCH ×2 (09:00→21:09)
[2018-11-29] MEDS: Z GUARD REMEDY 2 OZ OINT TP SCH ×4 (09:00→21:08)
[2018-11-29] MEDS: FAMOTIDINE (20 MG) 20 MG TABLET GT SCH ×2 (09:00→21:08)
[2018-11-29] MEDS: PROSOURCE / PROSTAT (PYXIS) 30 ML UDC JT SCH ×2 (09:00→16:39)
[2018-11-29] MEDS: LEVETIRACETAM SOL (5 ML) 100 MG/ML UDC GT SCH ×2 (09:00→21:08)
[2018-11-29] MEDS: HYDROGEN PEROXIDE 480 ML BOTTLE TP SCH ×2 (09:10→21:03)
[2018-11-29] MEDS ORDERED: INFLUENZA VACCINE 2019-20 0.5 ML DISP.SYRIN IM ONE (10:00)
--- NOTE | 2018-11-29 17:44 | NUR ---
RT PATIENT WAS RECEIVED ON CONTINUOUS VENT SUPPORT ON NOTED VENT SETTINGS.ALARMS ARE SET AND AUDIBLE.AIRWAY PATENT AND SECURED. PATIENT STABLE AND TOLERATED CURRENT VENT SETTINGS.WILL CONTINUE TO MONITOR. Addendum: 11/29/18 at 1745 by HARLEY MUNIZ RT Amended: Links added.
[2018-11-29] MEDS: JEVITY 1.2 CAL 1,000 ML BOTTLE JT PRN (18:01)
--- NOTE | 2018-11-29 19:25 | NUR ---
Flu vaccine given on left deltoid per MD order, will monitor for any adverse reaciton.
[2018-11-29 20:05] VITALS: BP 108/67
[2018-11-29] MEDS: POLYETHYLENE GLYCOL 3350 17 GM POWD.PACK GT SCH (21:09)
[2018-11-30] MEDS: ERYTHROMYCIN STEARATE 250 MG TABLET GT SCH ×5 (00:16→23:36)
[2018-11-30] MEDS: ALBUTEROL FS 2.5 MG/3 ML VIAL.NEB NEB SCH ×4 (02:15→19:55)
--- NOTE | 2018-11-30 06:06 | NUR ---
S/P Flu vaccination - afebrile.
[2018-11-30] MEDS: VITAMINS A AND D 56.7 GM TUBE TP SCH ×2 (08:19→21:26)
[2018-11-30] MEDS: LEVETIRACETAM SOL (5 ML) 100 MG/ML UDC GT SCH ×2 (08:19→21:25)
[2018-11-30] MEDS: Z GUARD REMEDY 2 OZ OINT TP SCH ×4 (08:19→21:26)
[2018-11-30] MEDS: PROSOURCE / PROSTAT (PYXIS) 30 ML UDC JT SCH ×2 (08:19→16:25)
[2018-11-30] MEDS: FAMOTIDINE (20 MG) 20 MG TABLET GT SCH ×2 (08:19→21:25)
[2018-11-30] MEDS: POLYVINYL ALCOHOL 15 ML BOTTLE EACHEYE SCH ×4 (08:19→21:25)
[2018-11-30] MEDS: diphenhydrAMINE HCL/ZINC ACET CREAM 28.3 GM TUBE TP SCH ×4 (08:19→21:26)
[2018-11-30] MEDS: HYDROGEN PEROXIDE 480 ML BOTTLE TP SCH ×2 (09:00→21:26)
[2018-11-30 11:13] VITALS: BP 97/59
--- NOTE | 2018-11-30 11:40 | NUR ---
No adverse reactions to flu vaccine noted.
[2018-11-30] MEDS: POLYETHYLENE GLYCOL 3350 17 GM POWD.PACK GT SCH (21:26)
[2018-11-30 21:33] VITALS: BP 100/60
[2018-12-01] MEDS: ALBUTEROL FS 2.5 MG/3 ML VIAL.NEB NEB SCH ×4 (01:45→19:38)
[2018-12-01] MEDS: ERYTHROMYCIN STEARATE 250 MG TABLET GT SCH ×4 (05:10→23:14)
[2018-12-01 08:05] VITALS: BP 105/66
[2018-12-01] MEDS: HYDROGEN PEROXIDE 480 ML BOTTLE TP SCH ×2 (09:20→21:01)
[2018-12-01] MEDS: PROSOURCE / PROSTAT (PYXIS) 30 ML UDC JT SCH ×2 (09:22→16:32)
[2018-12-01] MEDS: diphenhydrAMINE HCL/ZINC ACET CREAM 28.3 GM TUBE TP SCH ×4 (09:22→21:00)
[2018-12-01] MEDS: LEVETIRACETAM SOL (5 ML) 100 MG/ML UDC GT SCH ×2 (09:22→21:00)
[2018-12-01] MEDS: POLYVINYL ALCOHOL 15 ML BOTTLE EACHEYE SCH ×4 (09:22→21:00)
[2018-12-01] MEDS: FAMOTIDINE (20 MG) 20 MG TABLET GT SCH ×2 (09:22→21:00)
[2018-12-01] MEDS: Z GUARD REMEDY 2 OZ OINT TP SCH ×4 (09:23→21:01)
[2018-12-01] MEDS: VITAMINS A AND D 56.7 GM TUBE TP SCH ×2 (09:23→21:01)
[2018-12-01] MEDS: POLYETHYLENE GLYCOL 3350 17 GM POWD.PACK GT SCH (21:01)
[2018-12-01 21:02] VITALS: BP 101/61
--- NOTE | 2018-12-01 21:03 | NUR ---
RN NOTES S/P flu vaccine with no A/R noted. Will continue to monitor.
[2018-12-02] MEDS: ALBUTEROL FS 2.5 MG/3 ML VIAL.NEB NEB SCH ×4 (01:55→19:19)
[2018-12-02] MEDS: ERYTHROMYCIN STEARATE 250 MG TABLET GT SCH ×3 (05:43→17:24)
--- NOTE | 2018-12-02 05:56 | NUR ---
RT PATIENT WAS RECEIVED ON CONTINUOUS VENT SUPPORT ON NOTED VENT SETTINGS.ALARMS ARE SET AND AUDIBLE.AIRWAY PATENT AND SECURED. PATIENT STABLE AND TOLERATED CURRENT VENT SETTINGS.WILL CONTINUE TO MONITOR. Addendum: 12/02/18 at 0556 by HARLEY MUNIZ RT Amended: Links added.
[2018-12-02 07:40] VITALS: BP 100/61
[2018-12-02] MEDS: LEVETIRACETAM SOL (5 ML) 100 MG/ML UDC GT SCH ×2 (08:20→21:08)
[2018-12-02] MEDS: POLYVINYL ALCOHOL 15 ML BOTTLE EACHEYE SCH ×4 (08:20→21:08)
[2018-12-02] MEDS: PROSOURCE / PROSTAT (PYXIS) 30 ML UDC JT SCH ×2 (08:20→17:24)
[2018-12-02] MEDS: FAMOTIDINE (20 MG) 20 MG TABLET GT SCH ×2 (08:20→21:08)
--- NOTE | 2018-12-02 08:48 | NUR ---
RT NOTE: REC'D TRACH PT ON [facility] VENT ON NOTED SETTINGS PER MD ORDERS. EMERGENCY TECHNICIAN DONE. Q6 BREATHING TX GIVEN WITH NO ADVERSE REACTION NOTED. SX DONE PRN. VENT PLUGGED INTO RED OUTLET. ALARMS ON AND AUDIBLE. RAGHU BAG @ BEDSIDE. NO SOB AT THIS TIME. WILL CONT TO MONITOR. Addendum: 12/02/18 at 0849 by KYM DUEÑAS RT Amended: Links added.
[2018-12-02] MEDS: Z GUARD REMEDY 2 OZ OINT TP SCH ×4 (09:00→21:09)
[2018-12-02] MEDS: diphenhydrAMINE HCL/ZINC ACET CREAM 28.3 GM TUBE TP SCH ×4 (09:00→21:08)
[2018-12-02] MEDS: VITAMINS A AND D 56.7 GM TUBE TP SCH ×2 (09:00→21:09)
[2018-12-02] MEDS: HYDROGEN PEROXIDE 480 ML BOTTLE TP SCH ×2 (09:00→21:08)
--- NOTE | 2018-12-02 16:53 | NUR ---
No adverse reaction to flu vaccine noted.
[2018-12-02] MEDS: POLYETHYLENE GLYCOL 3350 17 GM POWD.PACK GT SCH (21:09)
[2018-12-03] MEDS: ERYTHROMYCIN STEARATE 250 MG TABLET GT SCH ×5 (00:13→23:44)
[2018-12-03] MEDS: ALBUTEROL FS 2.5 MG/3 ML VIAL.NEB NEB SCH ×4 (01:30→19:52)
[2018-12-03 07:38] VITALS: BP 103/70
[2018-12-03] MEDS: HYDROGEN PEROXIDE 480 ML BOTTLE TP SCH ×2 (08:34→19:52)
[2018-12-03] MEDS: VITAMINS A AND D 56.7 GM TUBE TP SCH ×2 (09:00→20:49)
[2018-12-03] MEDS: diphenhydrAMINE HCL/ZINC ACET CREAM 28.3 GM TUBE TP SCH ×4 (09:00→20:48)
[2018-12-03] MEDS: Z GUARD REMEDY 2 OZ OINT TP SCH ×4 (09:00→20:48)
[2018-12-03] MEDS: PROSOURCE / PROSTAT (PYXIS) 30 ML UDC JT SCH ×2 (09:00→16:53)
[2018-12-03] MEDS: POLYVINYL ALCOHOL 15 ML BOTTLE EACHEYE SCH ×4 (09:00→20:48)
[2018-12-03] MEDS: LEVETIRACETAM SOL (5 ML) 100 MG/ML UDC GT SCH ×2 (09:00→20:48)
[2018-12-03] MEDS: FAMOTIDINE (20 MG) 20 MG TABLET GT SCH ×2 (09:00→20:48)
--- NOTE | 2018-12-03 19:52 | NUR ---
RT NOTE: RECEIVED TRACH PT ON [facility] VENT ON NOTED SETTINGS PER MD ORDERS. TRACH IS PATENT AND SECURED. TRACH CARE DONE. RESIDENCE LEASING AGENT DONE. Q6 BREATHING TX GIVEN WITH NO ADVERSE REACTION NOTED. SX DONE PRN. VENT PLUGGED INTO RED OUTLET. ALARMS ON AND AUDIBLE. ELBERTU BAG @ BEDSIDE. NO RESP DISTRESS AT THIS TIME. WILL CONT TO MONITOR PT. Addendum: 12/04/18 at 0307 by CIRILO LOZOYA RT Amended: Links added.
[2018-12-03 20:09] VITALS: BP 114/59
[2018-12-03] MEDS: POLYETHYLENE GLYCOL 3350 17 GM POWD.PACK GT SCH (21:00)
[2018-12-04] MEDS: ALBUTEROL FS 2.5 MG/3 ML VIAL.NEB NEB SCH ×4 (02:01→19:28)
[2018-12-04] MEDS: ERYTHROMYCIN STEARATE 250 MG TABLET GT SCH ×3 (05:47→17:30)
[2018-12-04] MEDS: HYDROGEN PEROXIDE 480 ML BOTTLE TP SCH ×2 (08:05→20:55)
[2018-12-04 08:07] VITALS: BP 116/59
[2018-12-04] MEDS: LEVETIRACETAM SOL (5 ML) 100 MG/ML UDC GT SCH ×2 (09:00→20:54)
[2018-12-04] MEDS: PROSOURCE / PROSTAT (PYXIS) 30 ML UDC JT SCH ×2 (09:00→17:30)
[2018-12-04] MEDS: VITAMINS A AND D 56.7 GM TUBE TP SCH ×2 (09:00→20:55)
[2018-12-04] MEDS: diphenhydrAMINE HCL/ZINC ACET CREAM 28.3 GM TUBE TP SCH ×4 (09:00→20:54)
[2018-12-04] MEDS: Z GUARD REMEDY 2 OZ OINT TP SCH ×4 (09:00→20:55)
[2018-12-04] MEDS: POLYVINYL ALCOHOL 15 ML BOTTLE EACHEYE SCH ×4 (09:00→20:54)
[2018-12-04] MEDS: FAMOTIDINE (20 MG) 20 MG TABLET GT SCH ×2 (09:00→20:54)
--- NOTE | 2018-12-04 16:45 | NUR ---
RT PT RECEIVED TRACH'D (PORTEX 7 CUFFED) ON [facility] VENT WITH SETTINGS PER MD ORDER. REVIEW SPECIALIST DONE. SPARE TRACH AND AMBU BAG AT HEAD OF BED. VENT PLUGGED INTO RED OUTLET. TX'S GIVEN ORDERED. NO ADVERSE REACTIONS OBSERVED. SUCTIONED AND MONITORED PRN. NO SOB NOTED THROUGHOUT SHIFT. TRACH CARE DONE. WILL CONTINUE TO MONITOR THE PT FOR ANY CHANGE OF CONDITION. Addendum: 12/04/18 at 1808 by RADHA GUADALUPE RT Amended: Links added.
[2018-12-04] MEDS: JEVITY 1.2 CAL 1,000 ML BOTTLE JT PRN (17:46)
[2018-12-04 20:00] VITALS: BP 104/61
[2018-12-04 20:34] VITALS: BP 104/60
[2018-12-04] MEDS: POLYETHYLENE GLYCOL 3350 17 GM POWD.PACK GT SCH (21:09)
[2018-12-05] MEDS: ERYTHROMYCIN STEARATE 250 MG TABLET GT SCH ×5 (00:14→23:03)
[2018-12-05] MEDS: ALBUTEROL FS 2.5 MG/3 ML VIAL.NEB NEB SCH ×4 (00:26→19:30)
[2018-12-05 07:41] VITALS: BP 116/60
[2018-12-05] MEDS: POLYVINYL ALCOHOL 15 ML BOTTLE EACHEYE SCH ×4 (08:13→20:51)
[2018-12-05] MEDS: LEVETIRACETAM SOL (5 ML) 100 MG/ML UDC GT SCH ×2 (08:13→20:51)
[2018-12-05] MEDS: FAMOTIDINE (20 MG) 20 MG TABLET GT SCH ×2 (08:13→20:51)
[2018-12-05] MEDS: PROSOURCE / PROSTAT (PYXIS) 30 ML UDC JT SCH ×2 (08:13→17:22)
[2018-12-05] MEDS: diphenhydrAMINE HCL/ZINC ACET CREAM 28.3 GM TUBE TP SCH ×4 (08:19→20:51)
[2018-12-05] MEDS: VITAMINS A AND D 56.7 GM TUBE TP SCH ×2 (08:19→20:51)
[2018-12-05] MEDS: Z GUARD REMEDY 2 OZ OINT TP SCH ×4 (08:19→20:51)
[2018-12-05] MEDS: HYDROGEN PEROXIDE 480 ML BOTTLE TP SCH ×3 (08:23→21:47)
[2018-12-05] MEDS ORDERED: TUBERCULIN,PURIF.PROT.DERIV. 5 TU/0.1 ML DISP.SYRIN ID SCH (09:00)
[2018-12-05 20:04] VITALS: BP 104/60
--- NOTE | 2018-12-05 20:31 | NUR ---
RECEIVED TRACH PT ON [facility] VENT WITH NOTED SETTINGS. PT IS ALERT AND AWAKE. TRACH IS PATENT AND SECURED. WILDLIFE REFUGE MANAGER DONE. Q6 BREATHING TX GIVEN WITH NO ADVERSE REACTION NOTED. SX DONE PRN. VENT PLUGGED INTO RED OUTLET. ALARMS ON AND AUDIBLE. AMBU BAG @ BEDSIDE. NO RESP DISTRESS AT THIS TIME. WILL CONT TO MONITOR PT.
[2018-12-05] MEDS: ACETAMINOPHEN 650 MG/20 ML UDC- SA PATIENTS-PAIN ONLY GT PRN (20:52)
[2018-12-05] MEDS: POLYETHYLENE GLYCOL 3350 17 GM POWD.PACK GT SCH (22:34)
[2018-12-06] MEDS: ALBUTEROL FS 2.5 MG/3 ML VIAL.NEB NEB SCH ×4 (01:40→19:55)
[2018-12-06] MEDS: ERYTHROMYCIN STEARATE 250 MG TABLET GT SCH ×4 (05:15→23:18)
[2018-12-06 07:30] VITALS: BP 111/81
[2018-12-06] MEDS: PROSOURCE / PROSTAT (PYXIS) 30 ML UDC JT SCH ×2 (09:33→16:20)
[2018-12-06] MEDS: POLYVINYL ALCOHOL 15 ML BOTTLE EACHEYE SCH ×4 (09:33→20:49)
[2018-12-06] MEDS: FAMOTIDINE (20 MG) 20 MG TABLET GT SCH ×2 (09:33→20:49)
[2018-12-06] MEDS: LEVETIRACETAM SOL (5 ML) 100 MG/ML UDC GT SCH ×2 (09:33→20:49)
[2018-12-06] MEDS: diphenhydrAMINE HCL/ZINC ACET CREAM 28.3 GM TUBE TP SCH ×4 (09:34→20:49)
[2018-12-06] MEDS: Z GUARD REMEDY 2 OZ OINT TP SCH ×4 (09:34→20:49)
[2018-12-06] MEDS: VITAMINS A AND D 56.7 GM TUBE TP SCH ×2 (09:34→20:49)
[2018-12-06] MEDS: JEVITY 1.2 CAL 1,000 ML BOTTLE JT PRN (15:20)
--- NOTE | 2018-12-06 18:11 | NUR ---
RT PATIENT WAS RECEIVED ON CONTINUOUS VENT SUPPORT ON NOTED VENT SETTINGS.ALARMS ARE SET AND AUDIBLE.AIRWAY PATENT AND SECURED. PATIENT STABLE AND TOLERATED CURRENT VENT SETTINGS.WILL CONTINUE TO MONITOR. Addendum: 12/06/18 at 1811 by HARLEY MUNIZ RT Amended: Links added.
[2018-12-06 20:27] VITALS: BP 101/59
[2018-12-06] MEDS: HYDROGEN PEROXIDE 480 ML BOTTLE TP SCH (20:49)
[2018-12-06] MEDS: POLYETHYLENE GLYCOL 3350 17 GM POWD.PACK GT SCH (21:15)
[2018-12-07] MEDS: ALBUTEROL FS 2.5 MG/3 ML VIAL.NEB NEB SCH ×4 (00:34→20:19)
[2018-12-07] MEDS: ERYTHROMYCIN STEARATE 250 MG TABLET GT SCH ×4 (05:06→23:20)
[2018-12-07 08:40] VITALS: BP 115/58
[2018-12-07] MEDS: POLYVINYL ALCOHOL 15 ML BOTTLE EACHEYE SCH ×4 (08:42→20:30)
[2018-12-07] MEDS: FAMOTIDINE (20 MG) 20 MG TABLET GT SCH ×2 (08:42→20:31)
[2018-12-07] MEDS: LEVETIRACETAM SOL (5 ML) 100 MG/ML UDC GT SCH ×2 (08:42→20:30)
[2018-12-07] MEDS: PROSOURCE / PROSTAT (PYXIS) 30 ML UDC JT SCH ×2 (08:42→17:37)
[2018-12-07] MEDS: HYDROGEN PEROXIDE 480 ML BOTTLE TP SCH ×2 (09:38→20:31)
[2018-12-07] MEDS: Z GUARD REMEDY 2 OZ OINT TP SCH ×4 (09:54→20:31)
[2018-12-07] MEDS: VITAMINS A AND D 56.7 GM TUBE TP SCH ×2 (09:54→20:31)
[2018-12-07] MEDS: diphenhydrAMINE HCL/ZINC ACET CREAM 28.3 GM TUBE TP SCH ×4 (09:54→20:31)
--- NOTE | 2018-12-07 16:11 | NUR ---
RT NOTES TRACH TUBE IN PLACE, PATENT, AND SECURED WITH TRACH TIE. ALARMS ON AND AUDIBLE. VENT PLUGGED IN TO RED OUTLET. AMBU BAG AND BACK UP TRACH BY THE BEDSIDE. NO SIGNS OF RESP DISTRESS AT THIS TIME. Addendum: 12/07/18 at 1611 by EDNA CORTEZ RT Amended: Links added.
[2018-12-07] MEDS: JEVITY 1.2 CAL 1,000 ML BOTTLE JT PRN (17:30)
[2018-12-07 20:28] VITALS: BP 105/80
[2018-12-07 20:34] VITALS: BP 101/65
[2018-12-07] MEDS: POLYETHYLENE GLYCOL 3350 17 GM POWD.PACK GT SCH (21:12)
--- NOTE | 2018-12-08 00:25 | NUR ---
Pt rec'd trached on the [facility] vent on AC mode. No resp distress or sob noted. Pt sx'd for thick mod amt of pale yellow secretions. Trach is patent and secured. Alarms are set and audible. Vent plugged into red outlet. Ambu bag bedside. Will continue to monitor. Addendum: 12/08/18 at 0026 by STELLA DALAL RT Amended: Links added.
[2018-12-08] MEDS: ALBUTEROL FS 2.5 MG/3 ML VIAL.NEB NEB SCH ×4 (01:53→19:36)
[2018-12-08] MEDS: ERYTHROMYCIN STEARATE 250 MG TABLET GT SCH ×3 (05:23→17:22)
--- NOTE | 2018-12-08 08:00 | NUR ---
Per charge nurse last night reported he noted bruise to left arm of patient, unknown origin. Reassessed left arm, noted discoloration, no swelling, patient denies pain at this time. Patient able to move left arm without difficulty at this time. Patient calm and resting comfortably at this time.
[2018-12-08 08:05] VITALS: BP 115/68
[2018-12-08] MEDS: Z GUARD REMEDY 2 OZ OINT TP SCH ×4 (09:00→20:29)
[2018-12-08] MEDS: diphenhydrAMINE HCL/ZINC ACET CREAM 28.3 GM TUBE TP SCH ×4 (09:00→20:29)
[2018-12-08] MEDS: VITAMINS A AND D 56.7 GM TUBE TP SCH ×2 (09:00→20:29)
[2018-12-08] MEDS: HYDROGEN PEROXIDE 480 ML BOTTLE TP SCH ×2 (09:00→21:14)
[2018-12-08] MEDS: POLYVINYL ALCOHOL 15 ML BOTTLE EACHEYE SCH ×4 (09:57→20:29)
[2018-12-08] MEDS: FAMOTIDINE (20 MG) 20 MG TABLET GT SCH ×2 (09:58→20:29)
[2018-12-08] MEDS: LEVETIRACETAM SOL (5 ML) 100 MG/ML UDC GT SCH ×2 (09:58→20:29)
[2018-12-08] MEDS: PROSOURCE / PROSTAT (PYXIS) 30 ML UDC JT SCH ×2 (09:58→17:22)
--- NOTE | 2018-12-08 10:30 | NUR ---
Patients' father came and made aware of the left arm discoloration. Patient not in distress. Closely monitored.
[2018-12-08] MEDS: JEVITY 1.2 CAL 1,000 ML BOTTLE JT PRN (18:55)
[2018-12-08 19:43] VITALS: BP 95/54
[2018-12-08] MEDS: POLYETHYLENE GLYCOL 3350 17 GM POWD.PACK GT SCH (22:46)
[2018-12-09] MEDS: ERYTHROMYCIN STEARATE 250 MG TABLET GT SCH ×5 (00:12→23:57)
[2018-12-09] MEDS: ALBUTEROL FS 2.5 MG/3 ML VIAL.NEB NEB SCH ×4 (01:48→19:28)
--- NOTE | 2018-12-09 05:33 | NUR ---
RT PATIENT WAS RECEIVED ON CONTINUOUS VENT SUPPORT ON NOTED VENT SETTINGS.ALARMS ARE SET AND AUDIBLE.AIRWAY PATENT AND SECURED. PATIENT STABLE THROUGHOUT THE SHIFT.WILL CONTINUE TO MONITOR. Addendum: 12/09/18 at 0533 by HARLEY MUNIZ RT Amended: Links added.
[2018-12-09] MEDS: HYDROGEN PEROXIDE 480 ML BOTTLE TP SCH ×2 (08:34→19:28)
[2018-12-09] MEDS: VITAMINS A AND D 56.7 GM TUBE TP SCH ×2 (09:00→21:16)
[2018-12-09] MEDS: diphenhydrAMINE HCL/ZINC ACET CREAM 28.3 GM TUBE TP SCH ×3 (09:00→21:16)
[2018-12-09] MEDS: Z GUARD REMEDY 2 OZ OINT TP SCH ×4 (09:00→21:16)
[2018-12-09] MEDS: POLYVINYL ALCOHOL 15 ML BOTTLE EACHEYE SCH ×4 (09:17→21:14)
[2018-12-09] MEDS: FAMOTIDINE (20 MG) 20 MG TABLET GT SCH ×2 (09:18→21:15)
[2018-12-09] MEDS: PROSOURCE / PROSTAT (PYXIS) 30 ML UDC JT SCH ×2 (09:18→17:18)
[2018-12-09] MEDS: LEVETIRACETAM SOL (5 ML) 100 MG/ML UDC GT SCH ×2 (09:18→21:14)
[2018-12-09 10:38] VITALS: BP 116/71
[2018-12-09 20:49] VITALS: BP 106/66
[2018-12-09] MEDS: POLYETHYLENE GLYCOL 3350 17 GM POWD.PACK GT SCH (21:16)
[2018-12-10] MEDS: ALBUTEROL FS 2.5 MG/3 ML VIAL.NEB NEB SCH ×4 (02:15→20:12)
[2018-12-10] MEDS: JEVITY 1.2 CAL 1,000 ML BOTTLE JT PRN (03:33)
--- NOTE | 2018-12-10 04:29 | NUR ---
PATIENT RECEIVED ON TRACH TO VENT WITH SETTINGS OF AC 30, 450 VT, 40%, +0. SUCTIONED WITH LAVAGE FOR MINIMAL, THIN, FROTHY, WHITE SECRETIONS. GIVEN IN-LINE TREATMENTS WITH NO ADVERSE REACTIONS. AMBU BAG AT BEDSIDE. VENT AND PULSE OXIMETER ALARMS AUDIBLE AND VISIBLE. VENT PLUGGED INTO RED OUTLET. Addendum: 12/10/18 at 0431 by MALLY NGUYEN RT Amended: Links added.
[2018-12-10] MEDS: ERYTHROMYCIN STEARATE 250 MG TABLET GT SCH ×3 (05:08→17:42)
[2018-12-10 07:57] VITALS: BP 113/60
[2018-12-10] MEDS: HYDROGEN PEROXIDE 480 ML BOTTLE TP SCH ×2 (08:37→20:13)
[2018-12-10] MEDS: LEVETIRACETAM SOL (5 ML) 100 MG/ML UDC GT SCH ×2 (09:45→21:33)
[2018-12-10] MEDS: diphenhydrAMINE HCL/ZINC ACET CREAM 28.3 GM TUBE TP SCH ×2 (09:45→21:33)
[2018-12-10] MEDS: PROSOURCE / PROSTAT (PYXIS) 30 ML UDC JT SCH ×2 (09:45→17:42)
[2018-12-10] MEDS: FAMOTIDINE (20 MG) 20 MG TABLET GT SCH ×2 (09:45→21:33)
[2018-12-10] MEDS: VITAMINS A AND D 56.7 GM TUBE TP SCH ×2 (09:45→21:33)
[2018-12-10] MEDS: POLYVINYL ALCOHOL 15 ML BOTTLE EACHEYE SCH ×4 (09:45→21:32)
--- NOTE | 2018-12-10 20:13 | NUR ---
RT NOTE: RECEIVED TRACH PT ON [facility] VENT ON NOTED SETTINGS PER MD ORDERS. TRACH IS PATENT AND SECURED. TRACH CARE DONE. ORCHESTRA DIRECTOR DONE. Q6 BREATHING TX GIVEN WITH NO ADVERSE REACTION NOTED. SX DONE PRN. VENT PLUGGED INTO RED OUTLET. ALARMS ON AND AUDIBLE. ELBERTU BAG @ BEDSIDE. NO RESP DISTRESS AT THIS TIME. WILL CONT TO MONITOR PT. Addendum: 12/11/18 at 0250 by CIRILO LOZOYA RT Amended: Links added.
[2018-12-10 20:30] VITALS: BP 101/61
[2018-12-10] MEDS: POLYETHYLENE GLYCOL 3350 17 GM POWD.PACK GT SCH (21:34)
[2018-12-11] MEDS: ERYTHROMYCIN STEARATE 250 MG TABLET GT SCH ×5 (00:29→23:47)
[2018-12-11] MEDS: ALBUTEROL FS 2.5 MG/3 ML VIAL.NEB NEB SCH ×4 (01:59→19:24)
[2018-12-11] MEDS: JEVITY 1.2 CAL 1,000 ML BOTTLE JT PRN (06:31)
[2018-12-11 08:02] VITALS: BP 96/66
[2018-12-11] MEDS: POLYVINYL ALCOHOL 15 ML BOTTLE EACHEYE SCH ×4 (08:10→21:16)
[2018-12-11] MEDS: PROSOURCE / PROSTAT (PYXIS) 30 ML UDC JT SCH ×2 (08:10→16:28)
[2018-12-11] MEDS: LEVETIRACETAM SOL (5 ML) 100 MG/ML UDC GT SCH ×2 (08:10→21:16)
[2018-12-11] MEDS: HYDROGEN PEROXIDE 480 ML BOTTLE TP SCH ×2 (08:10→21:00)
[2018-12-11] MEDS: FAMOTIDINE (20 MG) 20 MG TABLET GT SCH ×2 (08:10→21:16)
[2018-12-11] MEDS: VITAMINS A AND D 56.7 GM TUBE TP SCH ×2 (09:00→21:16)
[2018-12-11] MEDS: diphenhydrAMINE HCL/ZINC ACET CREAM 28.3 GM TUBE TP SCH ×2 (09:00→21:16)
[2018-12-11 20:14] VITALS: BP 104/74
[2018-12-11] MEDS: POLYETHYLENE GLYCOL 3350 17 GM POWD.PACK GT SCH (21:16)
[2018-12-12] MEDS: ALBUTEROL FS 2.5 MG/3 ML VIAL.NEB NEB SCH ×4 (01:09→20:13)
[2018-12-12] MEDS: ERYTHROMYCIN STEARATE 250 MG TABLET GT SCH ×3 (05:35→18:00)
[2018-12-12] MEDS: JEVITY 1.2 CAL 1,000 ML BOTTLE JT PRN (06:02)
[2018-12-12 08:02] VITALS: BP 103/64
[2018-12-12] MEDS: HYDROGEN PEROXIDE 480 ML BOTTLE TP SCH ×2 (08:08→20:24)
[2018-12-12] MEDS: FAMOTIDINE (20 MG) 20 MG TABLET GT SCH ×2 (08:24→21:56)
[2018-12-12] MEDS: LEVETIRACETAM SOL (5 ML) 100 MG/ML UDC GT SCH ×2 (08:24→21:55)
[2018-12-12] MEDS: POLYVINYL ALCOHOL 15 ML BOTTLE EACHEYE SCH ×4 (08:24→21:55)
[2018-12-12] MEDS: PROSOURCE / PROSTAT (PYXIS) 30 ML UDC JT SCH ×2 (08:24→16:18)
[2018-12-12] MEDS: diphenhydrAMINE HCL/ZINC ACET CREAM 28.3 GM TUBE TP SCH (09:00)
[2018-12-12] MEDS: VITAMINS A AND D 56.7 GM TUBE TP SCH ×2 (09:00→21:56)
--- NOTE | 2018-12-12 17:04 | NUR ---
PT. RECVD. ON MECHANICAL VENT. WITH NOTED SETTINGS. VENT IS PLUGGED TO RED OUTLET AND ALARMS ARE SET AND AUDIBLE. TRACH IS PATENT AND SECURED AND SPARE TRACH WITH BMV AT BEDSIDE. PT. HAS EQUAL CHEST RISE AND BILATERAL COARSE BREATH SOUNDS. SX. SMALL AMOUNT OF THIN WHITE SECRETIONS T/O THE DAY AND PATIENT TOLERATED BREATHING TX'S. WELL. NO SOB NOTED. WILL PASS REPORT TO PHYSICIAN OFFICE REP. Addendum: 12/12/18 at 1705 by HIMA VILLALOBOS RT Amended: Links added.
--- NOTE | 2018-12-12 20:23 | NUR ---
Seen and examined by XAVI Mike no new order.
--- NOTE | 2018-12-12 20:33 | NUR ---
PT RCVD TRACH'D ON MECHANICAL VENT WITH CHARTED SETTINGS. PT BRAULIO TX WELL. SX DONE. PT TRACH IS PATENT AND SECURE. VENT ALARMS APPEAR TO BE FUNCTIONING PROPERLY. VENT PLUGGED INTO RED OUTLET. AMBU BAG AT BEDSIDE. Addendum: 12/12/18 at 2033 by STANFORD PETERS RT Amended: Links added.
[2018-12-12 20:48] VITALS: BP 108/73
[2018-12-12] MEDS: POLYETHYLENE GLYCOL 3350 17 GM POWD.PACK GT SCH (21:57)
[2018-12-13] MEDS: ALBUTEROL FS 2.5 MG/3 ML VIAL.NEB NEB SCH ×4 (01:04→19:53)
[2018-12-13] MEDS: ERYTHROMYCIN STEARATE 250 MG TABLET GT SCH ×4 (05:53→17:40)
[2018-12-13] MEDS: JEVITY 1.2 CAL 1,000 ML BOTTLE JT PRN (05:55)
[2018-12-13 07:34] VITALS: BP 105/70
[2018-12-13] MEDS: VITAMINS A AND D 56.7 GM TUBE TP SCH ×2 (09:00→21:10)
[2018-12-13] MEDS: POLYVINYL ALCOHOL 15 ML BOTTLE EACHEYE SCH ×4 (09:11→21:10)
[2018-12-13] MEDS: PROSOURCE / PROSTAT (PYXIS) 30 ML UDC JT SCH ×2 (09:12→16:48)
[2018-12-13] MEDS: FAMOTIDINE (20 MG) 20 MG TABLET GT SCH ×2 (09:12→21:10)
[2018-12-13] MEDS: LEVETIRACETAM SOL (5 ML) 100 MG/ML UDC GT SCH ×2 (09:12→21:10)
[2018-12-13] MEDS: HYDROGEN PEROXIDE 480 ML BOTTLE TP SCH ×2 (09:44→19:53)
--- NOTE | 2018-12-13 15:02 | NUR ---
The patients conservator/father, Asuncion Mitchell [phone] and aunt Catrina [phone] brought Validation Leader Payee Accounting Report document required by [employer] Department for assistance with filling it out. Asuncion only speaks Mauritian. SW assisted patients family, and they mailed out the document. No further action required.
--- NOTE | 2018-12-13 17:35 | NUR ---
RT Patient remained on continuous vent support on noted settings.Breathing treatment was given . Airway patent and secured. Patient stable throughout the shift. Will continue to monitor. Addendum: 12/13/18 at 1735 by HARLEY MUNIZ RT Amended: Links added.
[2018-12-13 19:31] VITALS: BP 97/54
--- NOTE | 2018-12-13 19:57 | NUR ---
RT NOTE RECEIVED PT WITH THE NOTED VENT SETTING. PT BRAULIO. VENT WELL AND INLINE NEB TX WELL. NO RESP. DISTRESS NOTED. WILL CONTINUE TO MONITOR. Addendum: 12/14/18 at 0524 by KENDALL MAJOR RT Amended: Links added.
[2018-12-13] MEDS: POLYETHYLENE GLYCOL 3350 17 GM POWD.PACK GT SCH (21:10)
[2018-12-14] MEDS: ERYTHROMYCIN STEARATE 250 MG TABLET GT SCH ×5 (00:01→23:11)
[2018-12-14] MEDS: ALBUTEROL FS 2.5 MG/3 ML VIAL.NEB NEB SCH ×4 (02:28→19:40)
[2018-12-14] MEDS: JEVITY 1.2 CAL 1,000 ML BOTTLE JT PRN (05:38)
[2018-12-14] MEDS: POLYVINYL ALCOHOL 15 ML BOTTLE EACHEYE SCH ×4 (09:00→20:24)
[2018-12-14] MEDS: LEVETIRACETAM SOL (5 ML) 100 MG/ML UDC GT SCH ×2 (09:00→20:24)
[2018-12-14] MEDS: FAMOTIDINE (20 MG) 20 MG TABLET GT SCH ×2 (09:00→20:24)
[2018-12-14] MEDS: PROSOURCE / PROSTAT (PYXIS) 30 ML UDC JT SCH ×2 (09:00→17:24)
[2018-12-14] MEDS: VITAMINS A AND D 56.7 GM TUBE TP SCH ×2 (09:00→20:25)
[2018-12-14] MEDS: HYDROGEN PEROXIDE 480 ML BOTTLE TP SCH ×2 (09:41→20:24)
--- NOTE | 2018-12-14 10:04 | NUR ---
RT NOTE PT RECEIVED TRACHED ON MECHANICAL VENTILATION. AMBU BAG/BACK UP TRACH @ BEDSIDE. TX GIVEN, NO ADVERSE REACTIONS NOTED. SX DONE, TRACH SECURED AND PATENT. ALARMS ON AND AUDIBLE. NO SOB NOTED. CONT. POX. CONNECTED. Addendum: 12/14/18 at 1006 by MILAN CARRASCO RT Amended: Links added.
[2018-12-14 11:05] VITALS: BP 112/70
[2018-12-14 19:54] VITALS: BP 119/70
[2018-12-14] MEDS: POLYETHYLENE GLYCOL 3350 17 GM POWD.PACK GT SCH (21:23)
[2018-12-15] MEDS: ALBUTEROL FS 2.5 MG/3 ML VIAL.NEB NEB SCH ×4 (01:44→19:57)
[2018-12-15] MEDS: ERYTHROMYCIN STEARATE 250 MG TABLET GT SCH ×3 (05:17→18:09)
[2018-12-15] MEDS: JEVITY 1.2 CAL 1,000 ML BOTTLE JT PRN (05:18)
[2018-12-15 07:50] VITALS: BP 94/53
[2018-12-15] MEDS: POLYVINYL ALCOHOL 15 ML BOTTLE EACHEYE SCH ×4 (09:16→21:22)
[2018-12-15] MEDS: LEVETIRACETAM SOL (5 ML) 100 MG/ML UDC GT SCH ×2 (09:16→21:22)
[2018-12-15] MEDS: VITAMINS A AND D 56.7 GM TUBE TP SCH ×2 (09:17→21:22)
[2018-12-15] MEDS: FAMOTIDINE (20 MG) 20 MG TABLET GT SCH ×2 (09:17→21:22)
[2018-12-15] MEDS: PROSOURCE / PROSTAT (PYXIS) 30 ML UDC JT SCH ×2 (09:17→16:45)
[2018-12-15] MEDS: HYDROGEN PEROXIDE 480 ML BOTTLE TP SCH ×2 (09:41→19:57)
--- NOTE | 2018-12-15 09:45 | NUR ---
Seen and examined by Dr. Monroe, no new order and carried out.
[2018-12-15 19:36] VITALS: BP 99/61
[2018-12-15] MEDS: POLYETHYLENE GLYCOL 3350 17 GM POWD.PACK GT SCH (21:22)
[2018-12-16] MEDS: ERYTHROMYCIN STEARATE 250 MG TABLET GT SCH ×5 (00:12→23:15)
[2018-12-16] MEDS: ALBUTEROL FS 2.5 MG/3 ML VIAL.NEB NEB SCH ×4 (01:35→19:36)
--- NOTE | 2018-12-16 02:26 | NUR ---
RT NOTE RECEIVED PT WITH THE NOTED CONDITION AND VENT SETTING IN [id number]. PT BRAULIO. VENT AND TX WELL. NO RESP. DISTRESS NOTED. WILL CONTINUE WITH THE CURRENT PLAN OF CARE. Addendum: 12/16/18 at 0227 by KENDALL MAJOR RT Amended: Links added.
[2018-12-16] MEDS: JEVITY 1.2 CAL 1,000 ML BOTTLE JT PRN (05:44)
[2018-12-16 07:44] VITALS: BP 101/61
[2018-12-16] MEDS: HYDROGEN PEROXIDE 480 ML BOTTLE TP SCH ×2 (09:00→21:00)
[2018-12-16] MEDS: POLYVINYL ALCOHOL 15 ML BOTTLE EACHEYE SCH ×4 (09:05→20:31)
[2018-12-16] MEDS: LEVETIRACETAM SOL (5 ML) 100 MG/ML UDC GT SCH ×2 (09:06→20:31)
[2018-12-16] MEDS: FAMOTIDINE (20 MG) 20 MG TABLET GT SCH ×2 (09:06→20:31)
[2018-12-16] MEDS: PROSOURCE / PROSTAT (PYXIS) 30 ML UDC JT SCH ×2 (09:06→17:19)
[2018-12-16] MEDS: VITAMINS A AND D 56.7 GM TUBE TP SCH ×2 (09:07→20:31)
--- NOTE | 2018-12-16 15:43 | NUR ---
TSERING completed the SS portion of annual MDS. The patients father, Asuncion Mitchell [phone] is the pt.s conservator and is Afghan speaking only. The patients aunt, Clif [phone] is also very involved and supportive and always accompanies Asuncion to assist with translating. The patient is awake, alert, non-verbal. The patient is DNR, supportive care only, NO CPR, NO Dialysis, transfer to [facility] only, ventilator dependent with trach. The patient had their dental cleaning by Dr. Kerr on 09/06/18, Optometry apt. with Dr. Alvarado on 03/08/18 and is up for his annual dental exam and cleaning on 03/08/2019. The pt. has a podiatry apt. with Dr. Meza on 12/14/18.
--- NOTE | 2018-12-16 16:23 | NUR ---
TSERING left voicemail to patient's auntClif to inform [phone] family that the Interdisciplinary Plan of Care Conference will be taking place this 12/20/18 and that they may attend or participate via phone conference.
[2018-12-16 20:48] VITALS: BP 96/52
[2018-12-16] MEDS: POLYETHYLENE GLYCOL 3350 17 GM POWD.PACK GT SCH (22:23)
[2018-12-17] MEDS: ALBUTEROL FS 2.5 MG/3 ML VIAL.NEB NEB SCH ×4 (01:18→20:32)
[2018-12-17] MEDS: ERYTHROMYCIN STEARATE 250 MG TABLET GT SCH ×4 (05:29→23:28)
[2018-12-17 07:38] VITALS: BP 97/51
[2018-12-17] MEDS: HYDROGEN PEROXIDE 480 ML BOTTLE TP SCH ×2 (08:19→21:00)
[2018-12-17] MEDS: JEVITY 1.2 CAL 1,000 ML BOTTLE JT PRN (09:04)
[2018-12-17] MEDS: POLYVINYL ALCOHOL 15 ML BOTTLE EACHEYE SCH ×4 (09:23→20:06)
[2018-12-17] MEDS: PROSOURCE / PROSTAT (PYXIS) 30 ML UDC JT SCH ×2 (09:23→16:48)
[2018-12-17] MEDS: FAMOTIDINE (20 MG) 20 MG TABLET GT SCH ×2 (09:23→20:06)
[2018-12-17] MEDS: LEVETIRACETAM SOL (5 ML) 100 MG/ML UDC GT SCH ×2 (09:23→20:06)
[2018-12-17] MEDS: VITAMINS A AND D 56.7 GM TUBE TP SCH ×2 (09:24→20:06)
--- NOTE | 2018-12-17 14:00 | NUR ---
With help of aunnelson Mayes at bedside, resident answered simple question if he has pain or not and said he has none at this time by gesture of head. Aunnelson Mayes states there is no change in Krishna, still the same-recognizes family well but does not know year/month/day, knows he's not home but unaware of what hospital setting he is in. Does not read prints so she did not bother with communication board as it will not be useful to him even with South African words on it. Non verbal. Unable to complete BIMS. Aunt said Ok to continue communicating with him thru gestures. Father and aunt visit regularly , without concerns at this time.
[2018-12-17 20:45] VITALS: BP 111/72
[2018-12-17] MEDS: POLYETHYLENE GLYCOL 3350 17 GM POWD.PACK GT SCH (21:57)
[2018-12-18] MEDS: ALBUTEROL FS 2.5 MG/3 ML VIAL.NEB NEB SCH ×4 (02:34→20:29)
[2018-12-18] MEDS: ERYTHROMYCIN STEARATE 250 MG TABLET GT SCH ×4 (05:18→23:32)
[2018-12-18 07:56] VITALS: BP 124/74
[2018-12-18] MEDS: POLYVINYL ALCOHOL 15 ML BOTTLE EACHEYE SCH ×4 (08:38→20:18)
[2018-12-18] MEDS: FAMOTIDINE (20 MG) 20 MG TABLET GT SCH ×2 (08:38→20:18)
[2018-12-18] MEDS: VITAMINS A AND D 56.7 GM TUBE TP SCH ×2 (08:38→20:18)
[2018-12-18] MEDS: PROSOURCE / PROSTAT (PYXIS) 30 ML UDC JT SCH ×2 (08:38→16:40)
[2018-12-18] MEDS: LEVETIRACETAM SOL (5 ML) 100 MG/ML UDC GT SCH ×2 (08:38→20:18)
--- NOTE | 2018-12-18 09:05 | NUR ---
RT NOTE PT RECEIVED TRACHED ON MECHANICAL VENTILATION. AMBU BAG/BACK UP TRACH @ BEDSIDE. CUFF CHECKED VIA HOME APPLIANCE WASHING MACHINE MECHANIC. TX GIVEN, NO ADVERSE REACTIONS NOTED. SX DONE, TRACH SECURED AND PATENT. ALARMS ON AND AUDIBLE. NO SOB NOTED. Addendum: 12/18/18 at 0906 by KYM DEUÑAS RT Amended: Links added.
[2018-12-18] MEDS: HYDROGEN PEROXIDE 480 ML BOTTLE TP SCH ×2 (09:11→21:18)
--- NOTE | 2018-12-18 20:30 | NUR ---
RECEIVED TRACH PT ON [facility] VENT WITH NOTED SETTINGS. PT IS ALERT AND AWAKE. TRACH IS PATENT AND SECURED. PROMOTIONAL DEMONSTRATOR DONE. Q6 BREATHING TX GIVEN WITH NO ADVERSE REACTION NOTED. SX DONE PRN. VENT PLUGGED INTO RED OUTLET. ALARMS ON AND AUDIBLE. AMBU BAG @ BEDSIDE. NO RESP DISTRESS AT THIS TIME. WILL CONT TO MONITOR PT.
[2018-12-18 20:50] VITALS: BP 106/65
[2018-12-18] MEDS: POLYETHYLENE GLYCOL 3350 17 GM POWD.PACK GT SCH (22:21)
[2018-12-19] MEDS: ALBUTEROL FS 2.5 MG/3 ML VIAL.NEB NEB SCH ×4 (00:50→20:00)
[2018-12-19] MEDS: ERYTHROMYCIN STEARATE 250 MG TABLET GT SCH ×3 (05:22→17:42)
[2018-12-19 07:53] VITALS: BP 112/60
[2018-12-19] MEDS: PROSOURCE / PROSTAT (PYXIS) 30 ML UDC JT SCH ×2 (08:15→17:42)
[2018-12-19] MEDS: POLYVINYL ALCOHOL 15 ML BOTTLE EACHEYE SCH ×4 (08:15→20:16)
[2018-12-19] MEDS: LEVETIRACETAM SOL (5 ML) 100 MG/ML UDC GT SCH ×2 (08:15→20:16)
[2018-12-19] MEDS: FAMOTIDINE (20 MG) 20 MG TABLET GT SCH ×2 (08:15→20:16)
[2018-12-19] MEDS: CLOTRIMAZOLE 1% 15 GM TUBE TP SCH ×2 (09:00→20:17)
[2018-12-19] MEDS: HYDROGEN PEROXIDE 480 ML BOTTLE TP SCH ×2 (09:00→20:00)
[2018-12-19] MEDS: VITAMINS A AND D 56.7 GM TUBE TP SCH ×2 (09:00→20:17)
--- NOTE | 2018-12-19 11:33 | NUR ---
RT NOTE PT RECEIVED TRACHED ON MECHANICAL VENTILATION. AMBU BAG/BACK UP TRACH @ BEDSIDE. TX GIVEN, NO ADVERSE REACTIONS NOTED. SX DONE, TRACH SECURED AND PATENT. ALARMS ON AND AUDIBLE. NO SOB NOTED AT THIS TIME. Addendum: 12/19/18 at 1133 by KYM DUEÑAS RT Amended: Links added.
[2018-12-19] MEDS: Z GUARD REMEDY 4 OZ OINT TP SCH ×2 (12:52→20:17)
[2018-12-19] MEDS: JEVITY 1.2 CAL 1,000 ML BOTTLE JT PRN (17:42)
--- NOTE | 2018-12-19 20:23 | NUR ---
PT RCVD TRACH'D ON MECHANICAL VENT WITH CHARTED SETTINGS. PT BRAULIO TX WELL. SX DONE. PT TRACH IS PATENT AND SECURE. VENT ALARMS APPEAR TO BE FUNCTIONING PROPERLY. VENT PLUGGED INTO RED OUTLET. AMBU BAG AT BEDSIDE. Addendum: 12/19/18 at 2022 by STANFORD PETERS RT Amended: Links added.
[2018-12-19 21:05] VITALS: BP 98/63
[2018-12-19] MEDS: POLYETHYLENE GLYCOL 3350 17 GM POWD.PACK GT SCH (22:15)
[2018-12-20] MEDS: ERYTHROMYCIN STEARATE 250 MG TABLET GT SCH ×5 (00:13→23:55)
[2018-12-20] MEDS: ALBUTEROL FS 2.5 MG/3 ML VIAL.NEB NEB SCH ×4 (00:52→20:10)
[2018-12-20 07:55] VITALS: BP 115/58
[2018-12-20] MEDS: CLOTRIMAZOLE 1% 15 GM TUBE TP SCH ×2 (08:55→20:37)
[2018-12-20] MEDS: FAMOTIDINE (20 MG) 20 MG TABLET GT SCH ×2 (08:55→20:36)
[2018-12-20] MEDS: LEVETIRACETAM SOL (5 ML) 100 MG/ML UDC GT SCH ×2 (08:55→20:36)
[2018-12-20] MEDS: POLYVINYL ALCOHOL 15 ML BOTTLE EACHEYE SCH ×4 (08:55→20:36)
[2018-12-20] MEDS: PROSOURCE / PROSTAT (PYXIS) 30 ML UDC JT SCH ×2 (08:55→17:05)
[2018-12-20] MEDS: Z GUARD REMEDY 4 OZ OINT TP SCH ×2 (08:56→20:37)
[2018-12-20] MEDS: VITAMINS A AND D 56.7 GM TUBE TP SCH ×2 (08:56→20:37)
[2018-12-20] MEDS: HYDROGEN PEROXIDE 480 ML BOTTLE TP SCH ×2 (09:50→20:37)
--- NOTE | 2018-12-20 15:28 | NUR ---
INTERDISCIPLINARY PLAN OF CARE CONFERENCE took place today. The patients responsible libertarian/ Jimhroeusha Yingdonta [phone] and ConservatorAsuncion were not able to attend or participate via phone conference. Charge nurse discussed buttocks redness/irritation & treatment, Orajel was discontinued . Dr. Cleveland and Interdisciplinary team discussed the plan of care in detail. Current orders as well as treatments and medications were reviewed. Please see other disciplines IDT notes for further details.
--- NOTE | 2018-12-20 16:30 | NUR ---
During IDT Dr. Cleveland ordered CBC and BMP for Sunday for routine labs and BERNARDINO Muniz due non usage. Order carried out.
--- NOTE | 2018-12-20 17:09 | NUR ---
RT NOTES TRACH TUBE IN PLACE, PATENT, AND SECURED WITH TRACH TIE. RECEIVED PT ON VENT WITH ORDERED SETTINGS. ALARMS ON AND AUDIBLE. VENT PLUGGED IN TO THE RED OUTLET. AMBU BAG AND BACK UP TRACH BY THE BEDSIDE. NO DISTRESS AT THIS TIME. WILL CONTINUE TO MONITOR. Addendum: 12/20/18 at 1709 by EDNA CORTEZ RT Amended: Links added.
[2018-12-20 19:53] VITALS: BP 109/68
[2018-12-20 20:00] VITALS: BP 109/68
[2018-12-20] MEDS: POLYETHYLENE GLYCOL 3350 17 GM POWD.PACK GT SCH (21:40)
[2018-12-21] MEDS: ALBUTEROL FS 2.5 MG/3 ML VIAL.NEB NEB SCH ×4 (01:47→19:56)
[2018-12-21] MEDS: ERYTHROMYCIN STEARATE 250 MG TABLET GT SCH ×4 (06:01→23:17)
[2018-12-21 07:36] VITALS: BP 101/72
[2018-12-21] MEDS: PROSOURCE / PROSTAT (PYXIS) 30 ML UDC JT SCH ×2 (08:30→17:32)
[2018-12-21] MEDS: LEVETIRACETAM SOL (5 ML) 100 MG/ML UDC GT SCH ×2 (08:30→21:18)
[2018-12-21] MEDS: POLYVINYL ALCOHOL 15 ML BOTTLE EACHEYE SCH ×4 (08:30→21:18)
[2018-12-21] MEDS: FAMOTIDINE (20 MG) 20 MG TABLET GT SCH ×2 (08:30→21:18)
[2018-12-21] MEDS: VITAMINS A AND D 56.7 GM TUBE TP SCH ×2 (09:00→21:18)
[2018-12-21] MEDS: CLOTRIMAZOLE 1% 15 GM TUBE TP SCH ×2 (09:00→21:18)
[2018-12-21] MEDS: Z GUARD REMEDY 4 OZ OINT TP SCH ×2 (09:00→21:18)
[2018-12-21] MEDS: HYDROGEN PEROXIDE 480 ML BOTTLE TP SCH ×2 (09:35→21:18)
--- NOTE | 2018-12-21 15:58 | NUR ---
RT NOTES TRACH TUBE IN PLACE, PATENT, AND SECURED WITH TRACH TIE. RECEIVED PT ON VENT WITH ORDERED SETTINGS. ALARMS ON AND AUDIBLE. VENT PLUGGED IN TO THE RED OUTLET. AMBU BAG AND BACK UP TRACH BY THE BEDSIDE. NO DISTRESS AT THIS TIME. WILL CONTINUE TO MONITOR. Addendum: 12/21/18 at 1558 by EDNA CORTEZ RT Amended: Links added.
[2018-12-21 19:45] VITALS: BP 107/68
[2018-12-21] MEDS: POLYETHYLENE GLYCOL 3350 17 GM POWD.PACK GT SCH (21:18)
[2018-12-22] MEDS: ALBUTEROL FS 2.5 MG/3 ML VIAL.NEB NEB SCH ×4 (01:28→19:57)
[2018-12-22] MEDS: ERYTHROMYCIN STEARATE 250 MG TABLET GT SCH ×4 (05:35→23:53)
[2018-12-22] MEDS: JEVITY 1.2 CAL 1,000 ML BOTTLE JT PRN (05:38)
[2018-12-22 07:32] VITALS: BP 117/77
[2018-12-22] MEDS: HYDROGEN PEROXIDE 480 ML BOTTLE TP SCH ×2 (07:57→19:57)
[2018-12-22] MEDS: Z GUARD REMEDY 4 OZ OINT TP SCH ×2 (08:18→20:55)
[2018-12-22] MEDS: POLYVINYL ALCOHOL 15 ML BOTTLE EACHEYE SCH ×4 (08:18→20:54)
[2018-12-22] MEDS: CLOTRIMAZOLE 1% 15 GM TUBE TP SCH ×2 (08:18→20:55)
[2018-12-22] MEDS: LEVETIRACETAM SOL (5 ML) 100 MG/ML UDC GT SCH ×2 (08:18→20:55)
[2018-12-22] MEDS: PROSOURCE / PROSTAT (PYXIS) 30 ML UDC JT SCH ×2 (08:18→16:35)
[2018-12-22] MEDS: VITAMINS A AND D 56.7 GM TUBE TP SCH ×2 (08:18→20:55)
[2018-12-22] MEDS: FAMOTIDINE (20 MG) 20 MG TABLET GT SCH ×2 (08:18→20:55)
[2018-12-22 19:50] VITALS: BP 107/51
--- NOTE | 2018-12-22 19:58 | NUR ---
RT NOTE: RECEIVED TRACH PT ON [facility] VENT ON NOTED SETTINGS PER MD ORDERS. TRACH IS PATENT AND SECURED. TRACH CARE DONE. CARD SCRAPER DONE. Q6 BREATHING TX GIVEN WITH NO ADVERSE REACTION NOTED. SX DONE PRN. VENT PLUGGED INTO RED OUTLET. ALARMS ON AND AUDIBLE. ELBERTU BAG @ BEDSIDE. NO RESP DISTRESS AT THIS TIME. WILL CONT TO MONITOR PT. Addendum: 12/23/18 at 0527 by CIRILO LOZOYA RT Amended: Links added.
[2018-12-22] MEDS: POLYETHYLENE GLYCOL 3350 17 GM POWD.PACK GT SCH (21:34)
[2018-12-23] MEDS: ALBUTEROL FS 2.5 MG/3 ML VIAL.NEB NEB SCH ×4 (02:06→20:25)
[2018-12-23] MEDS: ERYTHROMYCIN STEARATE 250 MG TABLET GT SCH ×4 (05:07→23:58)
[2018-12-23] MEDS: JEVITY 1.2 CAL 1,000 ML BOTTLE JT PRN (05:07)
[2018-12-23] MEDS: POLYVINYL ALCOHOL 15 ML BOTTLE EACHEYE SCH ×4 (09:00→20:13)
[2018-12-23] MEDS: FAMOTIDINE (20 MG) 20 MG TABLET GT SCH ×2 (09:00→20:15)
[2018-12-23] MEDS: LEVETIRACETAM SOL (5 ML) 100 MG/ML UDC GT SCH ×2 (09:00→20:14)
[2018-12-23] MEDS: VITAMINS A AND D 56.7 GM TUBE TP SCH ×2 (09:00→20:16)
[2018-12-23] MEDS: Z GUARD REMEDY 4 OZ OINT TP SCH ×2 (09:00→20:16)
[2018-12-23] MEDS: PROSOURCE / PROSTAT (PYXIS) 30 ML UDC JT SCH ×2 (09:00→17:53)
[2018-12-23] MEDS: CLOTRIMAZOLE 1% 15 GM TUBE TP SCH ×2 (09:00→20:15)
[2018-12-23] MEDS: HYDROGEN PEROXIDE 480 ML BOTTLE TP SCH ×2 (09:47→20:25)
[2018-12-23 11:06] VITALS: BP 110/63
[2018-12-23] MEDS ORDERED: TUBERCULIN,PURIF.PROT.DERIV. 5 TU/0.1 ML VIAL ID SCH (17:00)
[2018-12-23 20:01] VITALS: BP 110/63
[2018-12-23] MEDS: POLYETHYLENE GLYCOL 3350 17 GM POWD.PACK GT SCH (21:30)
[2018-12-24] MEDS: ALBUTEROL FS 2.5 MG/3 ML VIAL.NEB NEB SCH ×4 (02:01→19:54)
[2018-12-24] MEDS: JEVITY 1.2 CAL 1,000 ML BOTTLE JT PRN (04:01)
--- NOTE | 2018-12-24 04:56 | NUR ---
RT NOTE PT. RECEIVED ON TRACH ON MECHANICAL VENT WITH NOTED SETTINGS. ALARMS ARE SET AND AUDIBLE AND VENT IS PLUGGED TO RED OUTLET. TRACH IS PATENT AND SECURE. SPARE TRACH AND BVM IS AT BEDSIDE. PT. HAS EQUAL CHEST RISE WITH COARSE BILATERAL BREATH SOUNDS. SX. SMALL AMOUNT OF CLEAR THIN SECRETIONS T/O THE NIGHT. Q6 TX'S WERE GIVEN WITH NO ADVERSE REACTIONS. Addendum: 12/24/18 at 0457 by HIMA VILLALOBOS RT Amended: Links added.
[2018-12-24] MEDS: ERYTHROMYCIN STEARATE 250 MG TABLET GT SCH ×3 (05:07→17:01)
[2018-12-24 07:58] VITALS: BP 122/76
[2018-12-24] MEDS: POLYVINYL ALCOHOL 15 ML BOTTLE EACHEYE SCH ×4 (09:10→20:08)
[2018-12-24] MEDS: PROSOURCE / PROSTAT (PYXIS) 30 ML UDC JT SCH ×2 (09:10→17:00)
[2018-12-24] MEDS: LEVETIRACETAM SOL (5 ML) 100 MG/ML UDC GT SCH ×2 (09:10→20:08)
[2018-12-24] MEDS: FAMOTIDINE (20 MG) 20 MG TABLET GT SCH ×2 (09:10→20:08)
[2018-12-24] MEDS: HYDROGEN PEROXIDE 480 ML BOTTLE TP SCH ×2 (09:31→19:55)
[2018-12-24] MEDS: Z GUARD REMEDY 4 OZ OINT TP SCH ×2 (11:00→20:08)
[2018-12-24] MEDS: CLOTRIMAZOLE 1% 15 GM TUBE TP SCH ×2 (11:00→20:08)
[2018-12-24] MEDS: VITAMINS A AND D 56.7 GM TUBE TP SCH ×2 (11:00→20:08)
--- NOTE | 2018-12-24 14:13 | NUR ---
Probate Astronomy Teacher, Erin Olson [phone] visited the patient to conduct regular visit and ensure patients conservator is involved and supportive. TSERING met with Erin, and relayed that the patients conservator, Asuncion visits almost daily and is always accompanied by the pt.s aunt Clif who translated for the conservator as he only speaks Welsh. Erin stated charge nurse had already provided him with admission date and other details. Per Erin, he should be contacted if there are ever any problems with conservator. Noted. TSERING placed copy of Russ business card in patients chart.
--- NOTE | 2018-12-24 19:55 | NUR ---
RT NOTE: RECEIVED TRACH PT ON [facility] VENT ON NOTED SETTINGS PER MD ORDERS. TRACH IS PATENT AND SECURED. TRACH CARE DONE. CUTTER BARREL DRUM DONE. Q6 BREATHING TX GIVEN WITH NO ADVERSE REACTION NOTED. SX DONE PRN. VENT PLUGGED INTO RED OUTLET. ALARMS ON AND AUDIBLE. ELBERTU BAG @ BEDSIDE. NO RESP DISTRESS AT THIS TIME. WILL CONT TO MONITOR PT. Addendum: 12/25/18 at 0350 by CIRILO LOZOYA RT Amended: Links added.
[2018-12-24 20:44] VITALS: BP 100/74
[2018-12-24] MEDS: POLYETHYLENE GLYCOL 3350 17 GM POWD.PACK GT SCH (22:22)
[2018-12-25] MEDS: ERYTHROMYCIN STEARATE 250 MG TABLET GT SCH ×5 (00:09→23:43)
[2018-12-25] MEDS: ALBUTEROL FS 2.5 MG/3 ML VIAL.NEB NEB SCH ×4 (01:54→19:55)
[2018-12-25] MEDS: JEVITY 1.2 CAL 1,000 ML BOTTLE JT PRN (04:03)
[2018-12-25 07:56] VITALS: BP 105/58
[2018-12-25] MEDS: HYDROGEN PEROXIDE 480 ML BOTTLE TP SCH ×2 (08:37→19:55)
[2018-12-25] MEDS: VITAMINS A AND D 56.7 GM TUBE TP SCH ×2 (09:00→21:06)
[2018-12-25] MEDS: Z GUARD REMEDY 4 OZ OINT TP SCH ×2 (09:00→21:06)
[2018-12-25] MEDS: CLOTRIMAZOLE 1% 15 GM TUBE TP SCH ×2 (09:00→21:06)
[2018-12-25] MEDS: PROSOURCE / PROSTAT (PYXIS) 30 ML UDC JT SCH ×2 (09:53→17:53)
[2018-12-25] MEDS: POLYVINYL ALCOHOL 15 ML BOTTLE EACHEYE SCH ×4 (09:53→21:06)
[2018-12-25] MEDS: FAMOTIDINE (20 MG) 20 MG TABLET GT SCH ×2 (09:53→21:06)
[2018-12-25] MEDS: LEVETIRACETAM SOL (5 ML) 100 MG/ML UDC GT SCH ×2 (09:53→21:06)
--- NOTE | 2018-12-25 11:41 | NUR ---
RT PATIENT RECEIVED TRACH'D ON [facility] VENT WITH SETTINGS PER MD ORDER. UTILITY AIRCREWMAN DONE. SPARE TRACH AND AMBU BAG AT BEDSIDE. VENT PLUGGED INTO RED OUTLET. ALARMS ON AND WORKING PROPERLY. TX GIVEN ORDERED. NO ADVERSE REACTIONS OBSERVED. SUCTIONED AND MONITORED PRN. NO SOB NOTED AT THIS TIME. TRACH CARE DONE. Addendum: 12/25/18 at 1712 by RADHA GUADALUPE RT Amended: Links added.
--- NOTE | 2018-12-25 13:48 | NUR ---
TSERING left a voicemail for the pt.s aunt, Clif [phone] inviting her and the conservator, to Family Support Group for the month of December taking place 01/01/19 from 11am-12 pm in the old admin room. TSERING left call back number
[2018-12-25 20:05] VITALS: BP 133/78
[2018-12-25] MEDS: POLYETHYLENE GLYCOL 3350 17 GM POWD.PACK GT SCH (21:06)
[2018-12-26] MEDS: ALBUTEROL FS 2.5 MG/3 ML VIAL.NEB NEB SCH ×4 (01:47→20:32)
[2018-12-26] MEDS: JEVITY 1.2 CAL 1,000 ML BOTTLE JT PRN (05:06)
[2018-12-26] MEDS: ERYTHROMYCIN STEARATE 250 MG TABLET GT SCH ×3 (05:06→17:24)
[2018-12-26 08:10] VITALS: BP 105/66
[2018-12-26] MEDS: FAMOTIDINE (20 MG) 20 MG TABLET GT SCH ×2 (08:51→21:52)
[2018-12-26] MEDS: Z GUARD REMEDY 4 OZ OINT TP SCH ×2 (08:51→21:52)
[2018-12-26] MEDS: CLOTRIMAZOLE 1% 15 GM TUBE TP SCH ×2 (08:51→21:52)
[2018-12-26] MEDS: PROSOURCE / PROSTAT (PYXIS) 30 ML UDC JT SCH ×2 (08:51→17:24)
[2018-12-26] MEDS: LEVETIRACETAM SOL (5 ML) 100 MG/ML UDC GT SCH ×2 (08:51→21:52)
[2018-12-26] MEDS: POLYVINYL ALCOHOL 15 ML BOTTLE EACHEYE SCH ×4 (08:51→21:52)
[2018-12-26] MEDS: VITAMINS A AND D 56.7 GM TUBE TP SCH ×2 (08:52→21:52)
[2018-12-26] MEDS: HYDROGEN PEROXIDE 480 ML BOTTLE TP SCH ×2 (09:00→20:32)
--- NOTE | 2018-12-26 20:11 | NUR ---
Seen and examined by XAVI Mike no new orders.
[2018-12-26 21:00] VITALS: BP 104/58
--- NOTE | 2018-12-26 21:07 | NUR ---
PT RCVD TRACH'D ON MECHANICAL VENT WITH CHARTED SETTINGS. PT BRAULIO TX WELL. SX DONE. PT TRACH IS PATENT AND SECURE. VENT ALARMS APPEAR TO BE FUNCTIONING PROPERLY. VENT PLUGGED INTO RED OUTLET. AMBU BAG AT BEDSIDE. NO SOB NOTED. Addendum: 12/26/18 at 2108 by STANFORD PETERS RT Amended: Links added.
[2018-12-26] MEDS: POLYETHYLENE GLYCOL 3350 17 GM POWD.PACK GT SCH (21:52)
[2018-12-27] MEDS: ERYTHROMYCIN STEARATE 250 MG TABLET GT SCH ×5 (00:12→23:28)
[2018-12-27] MEDS: ALBUTEROL FS 2.5 MG/3 ML VIAL.NEB NEB SCH ×4 (01:05→20:26)
[2018-12-27 06:49] VITALS: BP_SYST 57
--- NOTE | 2018-12-27 08:37 | NUR ---
RT NOTE RECEIVED PT MECHANICALLY VENTILATED VIA CUFFED TRACHEOSTOMY TUBE. CUFF INFLATED. TRACH TUBE MIDLINE AND SECURE. VENTILATOR SETTINGS PRESCRIBED. ALARMS SET PER PROTOCOL AND AUDIBLE. VENT PLUGGED IN TO RED OUTLET. AMBU BAG AND BACK UP TRACH AT BED SIDE. NO DISTRESS NOTED. Addendum: 12/27/18 at 0837 by GLENIS MUNIZ RT Amended: Links added.
[2018-12-27] MEDS: HYDROGEN PEROXIDE 480 ML BOTTLE TP SCH ×2 (09:00→20:26)
[2018-12-27] MEDS: POLYVINYL ALCOHOL 15 ML BOTTLE EACHEYE SCH ×4 (09:43→21:07)
[2018-12-27] MEDS: CLOTRIMAZOLE 1% 15 GM TUBE TP SCH ×2 (09:43→21:07)
[2018-12-27] MEDS: PROSOURCE / PROSTAT (PYXIS) 30 ML UDC JT SCH ×2 (09:43→17:21)
[2018-12-27] MEDS: FAMOTIDINE (20 MG) 20 MG TABLET GT SCH ×2 (09:43→21:07)
[2018-12-27] MEDS: LEVETIRACETAM SOL (5 ML) 100 MG/ML UDC GT SCH ×2 (09:43→21:07)
[2018-12-27] MEDS: Z GUARD REMEDY 4 OZ OINT TP SCH ×2 (09:44→21:07)
[2018-12-27] MEDS: VITAMINS A AND D 56.7 GM TUBE TP SCH ×2 (09:44→21:07)
[2018-12-27 20:00] VITALS: BP 119/67
[2018-12-27] MEDS: POLYETHYLENE GLYCOL 3350 17 GM POWD.PACK GT SCH (21:07)
[2018-12-28] MEDS: ALBUTEROL FS 2.5 MG/3 ML VIAL.NEB NEB SCH ×4 (01:48→20:24)
--- NOTE | 2018-12-28 03:02 | NUR ---
RT NOTE RECEIVED PT. ON TRACH WITH MECHANICAL VENT WITH NOTED SETTINGS. TRACH IS PATENT AND SECURED. VENT IS PLUGGED TO RED OUTLET AND ALARMS ARE SET AND AUDIBLE. BVM AND SPARE TRACH IS AT BEDSIDE. PT. HAS EQUAL CHEST RISE AND BREATHS SOUND ARE COARSE BILATERALLY. NO SOB NOTED. WILL CONTINUE TO MONITOR. Addendum: 12/28/18 at 0303 by HIMA VILLALOBOS RT Amended: Links added.
[2018-12-28] MEDS: ERYTHROMYCIN STEARATE 250 MG TABLET GT SCH ×4 (05:51→23:35)
[2018-12-28] MEDS: JEVITY 1.2 CAL 1,000 ML BOTTLE JT PRN (06:34)
[2018-12-28 07:51] VITALS: BP 97/57
[2018-12-28] MEDS: HYDROGEN PEROXIDE 480 ML BOTTLE TP SCH ×2 (09:00→20:24)
[2018-12-28] MEDS: POLYVINYL ALCOHOL 15 ML BOTTLE EACHEYE SCH ×4 (09:47→21:12)
[2018-12-28] MEDS: FAMOTIDINE (20 MG) 20 MG TABLET GT SCH ×2 (09:47→21:12)
[2018-12-28] MEDS: LEVETIRACETAM SOL (5 ML) 100 MG/ML UDC GT SCH ×2 (09:47→21:12)
[2018-12-28] MEDS: PROSOURCE / PROSTAT (PYXIS) 30 ML UDC JT SCH ×2 (09:47→17:18)
[2018-12-28] MEDS: VITAMINS A AND D 56.7 GM TUBE TP SCH ×2 (09:48→21:13)
[2018-12-28] MEDS: Z GUARD REMEDY 4 OZ OINT TP SCH ×2 (09:48→21:13)
[2018-12-28] MEDS: CLOTRIMAZOLE 1% 15 GM TUBE TP SCH ×2 (09:48→21:13)
--- NOTE | 2018-12-28 20:25 | NUR ---
RT NOTE PT. RECEIVED ON TRACH WITH MECHANICAL VENT. WITH NOTED SETTINGS. TRACH IS PATENT AND SECURED. ALARMS ARE SET AND AUDIBLE. VENT IS PLUGGED TO RED OUTLET. SPARE TRACH AND BVM IS AT BEDSIDE. PT. HAS EQUAL CHEST RISE WITH COARSE BILATERAL BREATH SOUNDS. SX SMALL AMOUNT OF THIN CLEAR SECRETIONS. NO SOB NOTED. WILL CONTINUE TO MONITOR. Addendum: 12/29/18 at 0120 by HIMA VILLALOBOS RT Amended: Links added.
[2018-12-28 20:40] VITALS: BP 104/58
[2018-12-28] MEDS: POLYETHYLENE GLYCOL 3350 17 GM POWD.PACK GT SCH (21:13)
[2018-12-29] MEDS: ALBUTEROL FS 2.5 MG/3 ML VIAL.NEB NEB SCH ×4 (01:20→20:18)
[2018-12-29] MEDS: ERYTHROMYCIN STEARATE 250 MG TABLET GT SCH ×3 (05:12→17:57)
[2018-12-29] MEDS: JEVITY 1.2 CAL 1,000 ML BOTTLE JT PRN (05:22)
[2018-12-29 08:14] VITALS: BP 94/59
--- NOTE | 2018-12-29 08:18 | NUR ---
RT NOTE: REC'D TRACH PT ON [facility] VENT ON NOTED SETTINGS PER MD ORDERS. TRACH IS PATENT AND SECURED. TRACH CARE DONE. ELECTRICAL LOGGER DONE. Q6 BREATHING TX GIVEN WITH NO ADVERSE REACTION NOTED. SX DONE PRN. VENT PLUGGED INTO RED OUTLET. ALARMS ON AND AUDIBLE. ELBERTU BAG @ BEDSIDE. NO RESP DISTRESS NOTED AT THIS TIME. WILL CONT TO MONITOR PT. Addendum: 12/29/18 at 0818 by KYM DUEÑAS RT Amended: Links added.
[2018-12-29] MEDS: POLYVINYL ALCOHOL 15 ML BOTTLE EACHEYE SCH ×4 (09:00→21:02)
[2018-12-29] MEDS: LEVETIRACETAM SOL (5 ML) 100 MG/ML UDC GT SCH ×2 (09:00→21:03)
[2018-12-29] MEDS: FAMOTIDINE (20 MG) 20 MG TABLET GT SCH ×2 (09:00→21:03)
[2018-12-29] MEDS: PROSOURCE / PROSTAT (PYXIS) 30 ML UDC JT SCH ×2 (09:00→17:57)
[2018-12-29] MEDS: HYDROGEN PEROXIDE 480 ML BOTTLE TP SCH ×2 (09:54→20:18)
[2018-12-29] MEDS: VITAMINS A AND D 56.7 GM TUBE TP SCH ×2 (10:30→21:03)
[2018-12-29] MEDS: CLOTRIMAZOLE 1% 15 GM TUBE TP SCH ×2 (10:30→21:03)
[2018-12-29] MEDS: Z GUARD REMEDY 4 OZ OINT TP SCH ×2 (10:30→21:03)
[2018-12-29 20:09] VITALS: BP 124/77
[2018-12-29] MEDS: POLYETHYLENE GLYCOL 3350 17 GM POWD.PACK GT SCH (21:04)
[2018-12-30] MEDS: ERYTHROMYCIN STEARATE 250 MG TABLET GT SCH ×3 (00:10→12:15)
[2018-12-30] MEDS: ALBUTEROL FS 2.5 MG/3 ML VIAL.NEB NEB SCH ×4 (01:37→20:05)
[2018-12-30] MEDS: JEVITY 1.2 CAL 1,000 ML BOTTLE JT PRN ×2 (06:01→12:16)
[2018-12-30 07:58] VITALS: BP 95/63
[2018-12-30] MEDS: PROSOURCE / PROSTAT (PYXIS) 30 ML UDC JT SCH ×2 (08:58→17:46)
[2018-12-30] MEDS: POLYVINYL ALCOHOL 15 ML BOTTLE EACHEYE SCH ×4 (08:58→20:44)
[2018-12-30] MEDS: LEVETIRACETAM SOL (5 ML) 100 MG/ML UDC GT SCH ×2 (08:58→20:44)
[2018-12-30] MEDS: FAMOTIDINE (20 MG) 20 MG TABLET GT SCH ×2 (08:58→20:44)
[2018-12-30] MEDS: VITAMINS A AND D 56.7 GM TUBE TP SCH ×2 (08:59→20:45)
[2018-12-30] MEDS: CLOTRIMAZOLE 1% 15 GM TUBE TP SCH ×2 (08:59→20:45)
[2018-12-30] MEDS: Z GUARD REMEDY 4 OZ OINT TP SCH ×2 (08:59→20:45)
[2018-12-30] MEDS: HYDROGEN PEROXIDE 480 ML BOTTLE TP SCH ×2 (09:00→20:18)
[2018-12-30] MEDS: ERYTHROMYCIN ETHYLSUCCINATE 200 MG/5 ML SUSPENSION GT SCH (17:46)
[2018-12-30 19:56] VITALS: BP 99/65
--- NOTE | 2018-12-30 20:39 | NUR ---
PT RCVD TRACH'D ON MECHANICAL VENT WITH CHARTED SETTINGS. PT BRAULIO TX WELL. SX DONE. PT TRACH IS PATENT AND SECURE. VENT ALARMS APPEAR TO BE FUNCTIONING PROPERLY. VENT PLUGGED INTO RED OUTLET. AMBU BAG AT BEDSIDE. NO SOB NOTED. Addendum: 12/30/18 at 2039 by STANFORD PETERS RT Amended: Links added.
[2018-12-30] MEDS: POLYETHYLENE GLYCOL 3350 17 GM POWD.PACK GT SCH (21:11)
[2018-12-31] MEDS: ERYTHROMYCIN ETHYLSUCCINATE 200 MG/5 ML SUSPENSION GT SCH ×4 (00:06→17:31)
[2018-12-31] MEDS: ALBUTEROL FS 2.5 MG/3 ML VIAL.NEB NEB SCH ×4 (01:20→19:35)
[2018-12-31 08:17] VITALS: BP 107/68
[2018-12-31] MEDS: PROSOURCE / PROSTAT (PYXIS) 30 ML UDC JT SCH ×2 (08:38→17:31)
[2018-12-31] MEDS: POLYVINYL ALCOHOL 15 ML BOTTLE EACHEYE SCH ×4 (08:38→21:42)
[2018-12-31] MEDS: LEVETIRACETAM SOL (5 ML) 100 MG/ML UDC GT SCH ×2 (08:38→21:42)
[2018-12-31] MEDS: FAMOTIDINE (20 MG) 20 MG TABLET GT SCH ×2 (08:38→21:45)
[2018-12-31] MEDS: CLOTRIMAZOLE 1% 15 GM TUBE TP SCH ×2 (09:00→21:45)
[2018-12-31] MEDS: Z GUARD REMEDY 4 OZ OINT TP SCH ×2 (09:00→21:45)
[2018-12-31] MEDS: VITAMINS A AND D 56.7 GM TUBE TP SCH ×2 (09:00→21:45)
[2018-12-31] MEDS: HYDROGEN PEROXIDE 480 ML BOTTLE TP SCH ×2 (09:59→21:45)
--- NOTE | 2018-12-31 10:05 | NUR ---
RT NOTE: REC'D TRACH PT ON [facility] VENT ON NOTED SETTINGS PER MD ORDERS. TRACH IS PATENT AND SECURED. TRACH CARE DONE. AUTOMATION TENDER DONE. SX DONE PRN. VENT PLUGGED INTO RED OUTLET. ALARMS ON AND AUDIBLE. RAGHU LEIGH @ BEDSIDE. NO RESP DISTRESS NOTED AT THIS TIME. WILL CONT TO MONITOR PT. Addendum: 12/31/18 at 1005 by KYM DUEÑAS RT Amended: Links added.
[2018-12-31] MEDS: JEVITY 1.2 CAL 1,000 ML BOTTLE JT PRN (17:32)
[2018-12-31 20:14] VITALS: BP 106/59
[2018-12-31] MEDS: POLYETHYLENE GLYCOL 3350 17 GM POWD.PACK GT SCH (21:46)
--- NOTE | 2018-12-31 23:49 | NUR ---
RT NO RESP DISTRESS NOTED AT THIS TIME. WILL CONT TO MONITOR PT. Addendum: 12/31/18 at 2349 by LOGAN CHAUHAN RT Amended: Links added.
[2019-01-01] MEDS: ALBUTEROL FS 2.5 MG/3 ML VIAL.NEB NEB SCH ×4 (00:42→20:24)
[2019-01-01] MEDS: ERYTHROMYCIN ETHYLSUCCINATE 200 MG/5 ML SUSPENSION GT SCH ×4 (00:58→17:10)
[2019-01-01 08:00] VITALS: BP 103/60
[2019-01-01] MEDS: HYDROGEN PEROXIDE 480 ML BOTTLE TP SCH ×2 (08:06→21:00)
[2019-01-01] MEDS: FAMOTIDINE (20 MG) 20 MG TABLET GT SCH ×2 (08:40→21:12)
[2019-01-01] MEDS: POLYVINYL ALCOHOL 15 ML BOTTLE EACHEYE SCH ×4 (08:40→21:12)
[2019-01-01] MEDS: PROSOURCE / PROSTAT (PYXIS) 30 ML UDC JT SCH ×2 (08:40→16:52)
[2019-01-01] MEDS: LEVETIRACETAM SOL (5 ML) 100 MG/ML UDC GT SCH ×2 (08:40→21:12)
[2019-01-01] MEDS: Z GUARD REMEDY 4 OZ OINT TP SCH ×2 (09:00→21:12)
[2019-01-01] MEDS: VITAMINS A AND D 56.7 GM TUBE TP SCH ×2 (09:00→21:12)
[2019-01-01] MEDS: CLOTRIMAZOLE 1% 15 GM TUBE TP SCH ×2 (09:00→21:12)
--- NOTE | 2019-01-01 13:00 | NUR ---
The pt.'s family was not able to attend this month's Family Support Group.
--- NOTE | 2019-01-01 17:00 | NUR ---
RT NOTE PT. RECEIVED ON TRACH ON MECHANICAL VENT. WITH NOTED SETTINGS. VENT IS PLUGGED TO RED OUTLET AND ALARMS ARE SET AND AUDIBLE. TRACH IS PATENT AND SECURED. SPARE TRACH AND BVM IS AT BEDSIDE. NO SOB NOTED. PT. TOLERATED BREATHING TX'S WELL. PT. HAS EQUAL CHEST RISE WITH COARSE BILATERAL BREATH SOUND. SX SMALL AMOUNT OF WHITE AND CLEAR THIN SECRETIONS T/O THE DAY. WILL PASS REPORT TO AUTOMOTIVE ELECTRICIAN. Addendum: 01/01/19 at 1701 by HIMA VILLALOBOS RT Amended: Links added.
[2019-01-01 20:19] VITALS: BP 101/52
--- NOTE | 2019-01-01 20:25 | NUR ---
RECEIVED TRACH PT ON MECH VENT WITH NOTED SETTINGS. PT IS ALERT AND AWAKE. TRACH IS PATENT AND SECURED. SCREEN TENDER HELPER DONE. Q6 BREATHING TX GIVEN WITH NO ADVERSE REACTION NOTED. SX DONE PRN. VENT PLUGGED INTO RED OUTLET. ALARMS ON AND AUDIBLE. AMBU BAG @ BEDSIDE. NO RESP DISTRESS AT THIS TIME. WILL CONT TO MONITOR PT.
[2019-01-01] MEDS: POLYETHYLENE GLYCOL 3350 17 GM POWD.PACK GT SCH (21:12)
[2019-01-02] MEDS: ALBUTEROL FS 2.5 MG/3 ML VIAL.NEB NEB SCH ×4 (00:49→20:07)
[2019-01-02] MEDS: ERYTHROMYCIN ETHYLSUCCINATE 200 MG/5 ML SUSPENSION GT SCH ×4 (05:54→18:04)
[2019-01-02 07:40] VITALS: BP 114/65
[2019-01-02] MEDS: HYDROGEN PEROXIDE 480 ML BOTTLE TP SCH ×2 (08:28→21:00)
[2019-01-02] MEDS: FAMOTIDINE (20 MG) 20 MG TABLET GT SCH ×2 (08:44→21:09)
[2019-01-02] MEDS: POLYVINYL ALCOHOL 15 ML BOTTLE EACHEYE SCH ×4 (08:44→21:09)
[2019-01-02] MEDS: PROSOURCE / PROSTAT (PYXIS) 30 ML UDC JT SCH ×2 (08:44→17:00)
[2019-01-02] MEDS: LEVETIRACETAM SOL (5 ML) 100 MG/ML UDC GT SCH ×2 (08:44→21:09)
[2019-01-02] MEDS: VITAMINS A AND D 56.7 GM TUBE TP SCH ×2 (08:45→21:09)
--- NOTE | 2019-01-02 16:34 | NUR ---
RT NOTE PT. RECEIVED ON TRACH ON MECHANICAL VENT WITH NOTED SETTINGS. VENT IS PLUGGED TO RED OUTLET AND ALARMS ARE SET AND AUDIBLE. SPARE TRACH AND BVM IS AT BEDSIDE. TRACH IS PATENT AND SECURED. PT. HAS EQUAL CHEST RISE WITH CLEAR AND COARSE BILATERAL BREATH SOUNDS. SX SMALL AMOUNT OF THIN CLEAR SECRETIONS T/O THE DAY. NO SOB NOTED. Addendum: 01/02/19 at 1635 by HIMA VILLALOBOS RT Amended: Links added.
[2019-01-02 20:35] VITALS: BP 98/57
[2019-01-02] MEDS: POLYETHYLENE GLYCOL 3350 17 GM POWD.PACK GT SCH (21:09)
[2019-01-03] MEDS: ERYTHROMYCIN ETHYLSUCCINATE 200 MG/5 ML SUSPENSION GT SCH ×5 (00:06→23:51)
[2019-01-03] MEDS: ALBUTEROL FS 2.5 MG/3 ML VIAL.NEB NEB SCH ×4 (00:35→19:52)
[2019-01-03] MEDS: JEVITY 1.2 CAL 1,000 ML BOTTLE JT PRN (00:46)
[2019-01-03 08:15] VITALS: BP 95/52
[2019-01-03] MEDS: HYDROGEN PEROXIDE 480 ML BOTTLE TP SCH ×2 (09:00→21:10)
[2019-01-03] MEDS: VITAMINS A AND D 56.7 GM TUBE TP SCH ×2 (09:28→21:12)
[2019-01-03] MEDS: PROSOURCE / PROSTAT (PYXIS) 30 ML UDC JT SCH ×2 (09:28→17:03)
[2019-01-03] MEDS: FAMOTIDINE (20 MG) 20 MG TABLET GT SCH ×2 (09:28→21:12)
[2019-01-03] MEDS: POLYVINYL ALCOHOL 15 ML BOTTLE EACHEYE SCH ×4 (09:28→21:11)
[2019-01-03] MEDS: LEVETIRACETAM SOL (5 ML) 100 MG/ML UDC GT SCH ×2 (09:28→21:12)
--- NOTE | 2019-01-03 15:24 | NUR ---
RT NOTE: REC'D TRACH PT ON [facility] VENT ON NOTED SETTINGS PER MD ORDERS. TRACH IS PATENT AND SECURED. TRACH CARE DONE. TRAVELING SALES REPRESENTATIVE DONE. SX DONE PRN. VENT PLUGGED INTO RED OUTLET. ALARMS ON AND AUDIBLE. RAGHU LEIGH @ BEDSIDE. NO RESP DISTRESS NOTED AT THIS TIME. WILL CONT TO MONITOR PT. Addendum: 01/03/19 at 1705 by HUGH LICONA RT Amended: Links added.
[2019-01-03 20:22] VITALS: BP 100/60
[2019-01-03] MEDS: POLYETHYLENE GLYCOL 3350 17 GM POWD.PACK GT SCH (21:13)
[2019-01-04] MEDS: ALBUTEROL FS 2.5 MG/3 ML VIAL.NEB NEB SCH ×4 (01:40→20:07)
[2019-01-04] MEDS: ERYTHROMYCIN ETHYLSUCCINATE 200 MG/5 ML SUSPENSION GT SCH ×3 (05:56→17:28)
[2019-01-04] MEDS: HYDROGEN PEROXIDE 480 ML BOTTLE TP SCH ×2 (08:08→21:25)
[2019-01-04 08:15] VITALS: BP 98/52
[2019-01-04 08:26] VITALS: BP 89/52
[2019-01-04] MEDS: LEVETIRACETAM SOL (5 ML) 100 MG/ML UDC GT SCH ×2 (09:25→21:00)
[2019-01-04] MEDS: POLYVINYL ALCOHOL 15 ML BOTTLE EACHEYE SCH ×4 (09:25→21:00)
[2019-01-04] MEDS: VITAMINS A AND D 56.7 GM TUBE TP SCH ×2 (09:25→21:00)
[2019-01-04] MEDS: PROSOURCE / PROSTAT (PYXIS) 30 ML UDC JT SCH ×2 (09:25→17:28)
[2019-01-04] MEDS: FAMOTIDINE (20 MG) 20 MG TABLET GT SCH ×2 (09:25→21:00)
[2019-01-04] MEDS: BISACODYL SUPP (10 MG) 10 MG/SUPP.RECT SUPP.RECT RC PRN (18:55)
[2019-01-04 20:29] VITALS: BP 105/62
[2019-01-04] MEDS: POLYETHYLENE GLYCOL 3350 17 GM POWD.PACK GT SCH (22:17)
[2019-01-05] MEDS: ERYTHROMYCIN ETHYLSUCCINATE 200 MG/5 ML SUSPENSION GT SCH ×5 (00:02→23:45)
[2019-01-05] MEDS: ALBUTEROL FS 2.5 MG/3 ML VIAL.NEB NEB SCH ×4 (01:36→19:53)
[2019-01-05 08:06] VITALS: BP 100/57
[2019-01-05] MEDS: LEVETIRACETAM SOL (5 ML) 100 MG/ML UDC GT SCH ×2 (09:48→21:05)
[2019-01-05] MEDS: HYDROGEN PEROXIDE 480 ML BOTTLE TP SCH ×2 (09:49→21:06)
[2019-01-05] MEDS: FAMOTIDINE (20 MG) 20 MG TABLET GT SCH ×2 (09:49→21:06)
[2019-01-05] MEDS: PROSOURCE / PROSTAT (PYXIS) 30 ML UDC JT SCH ×2 (09:49→16:13)
[2019-01-05] MEDS: VITAMINS A AND D 56.7 GM TUBE TP SCH ×2 (09:49→21:06)
[2019-01-05] MEDS: POLYVINYL ALCOHOL 15 ML BOTTLE EACHEYE SCH ×4 (09:49→21:05)
[2019-01-05] MEDS: JEVITY 1.2 CAL 1,000 ML BOTTLE JT PRN (12:15)
[2019-01-05 20:48] VITALS: BP 105/50
[2019-01-05] MEDS: POLYETHYLENE GLYCOL 3350 17 GM POWD.PACK GT SCH (21:07)
[2019-01-06] MEDS: ALBUTEROL FS 2.5 MG/3 ML VIAL.NEB NEB SCH ×4 (01:47→19:25)
[2019-01-06] MEDS: ERYTHROMYCIN ETHYLSUCCINATE 200 MG/5 ML SUSPENSION GT SCH ×3 (05:08→17:20)
--- NOTE | 2019-01-06 08:44 | NUR ---
RT NOTE: REC'D TRACH PT ON [facility] VENT ON NOTED SETTINGS PER MD ORDERS. TRACH IS PATENT AND SECURED. TRACH CARE DONE. SEALS ENGRAVER DONE. SX DONE PRN. VENT PLUGGED INTO RED OUTLET. ALARMS ON AND AUDIBLE. RAGHU LEIGH @ BEDSIDE. NO RESP DISTRESS NOTED AT THIS TIME. WILL CONT TO MONITOR PT. Addendum: 01/06/19 at 0844 by KYM DUEÑAS RT Amended: Links added.
[2019-01-06] MEDS: HYDROGEN PEROXIDE 480 ML BOTTLE TP SCH ×2 (09:00→21:00)
[2019-01-06] MEDS: VITAMINS A AND D 56.7 GM TUBE TP SCH ×2 (09:43→21:20)
[2019-01-06] MEDS: LEVETIRACETAM SOL (5 ML) 100 MG/ML UDC GT SCH ×2 (09:43→21:20)
[2019-01-06] MEDS: PROSOURCE / PROSTAT (PYXIS) 30 ML UDC JT SCH ×2 (09:43→16:22)
[2019-01-06] MEDS: FAMOTIDINE (20 MG) 20 MG TABLET GT SCH ×2 (09:43→21:20)
[2019-01-06] MEDS: POLYVINYL ALCOHOL 15 ML BOTTLE EACHEYE SCH ×4 (09:43→21:20)
[2019-01-06 11:23] VITALS: BP 104/63
[2019-01-06] MEDS: JEVITY 1.2 CAL 1,000 ML BOTTLE JT PRN (12:53)
--- NOTE | 2019-01-06 18:29 | NUR ---
Seen by COP BREAKER Germaine Mike. Notified her that pharmacy is asking why pt is not on an anticoagulant. She ordered CBC in AM. She said that if platelet count is normal, then she will start him on Heparin.
[2019-01-06 20:12] VITALS: BP 109/61
[2019-01-06] MEDS: POLYETHYLENE GLYCOL 3350 17 GM POWD.PACK GT SCH (21:20)
[2019-01-07] MEDS: ERYTHROMYCIN ETHYLSUCCINATE 200 MG/5 ML SUSPENSION GT SCH ×4 (00:23→17:15)
[2019-01-07] MEDS: ALBUTEROL FS 2.5 MG/3 ML VIAL.NEB NEB SCH ×4 (01:27→19:30)
[2019-01-07 07:18] LABS: BASOPHILS # (AUTO) 0.1 /CMM (0.0-0.2); BASOPHILS % (AUTO) 0.6 % (0.0-2.0); EOSINOPHILS % (AUTO) 2.6 % (0.0-6.0); HEMATOCRIT 42 % (39-51); HEMOGLOBIN 13.3 g/dL (13.5-17.5); LYMPHOCYTES # (AUTO) 3.5 /CMM (0.8-4.8); LYMPHOCYTES % (AUTO) 36.6 % (20.0-44.0); MEAN CORPUSCULAR HGB CONC 32 g/dl (31.0-36.0); MEAN CORPUSCULAR VOLUME 91 fL (80-96); MONOCYTES # (AUTO) 0.8 /CMM (0.1-1.30); MONOCYTES % (AUTO) 8.7 % (2.0-12.0); NEUTROPHILS % (AUTO) 51.5 % (43.0-81.0); PLATELET COUNT (AUTO) 241 /CMM (150-450); WHITE BLOOD COUNT (AUTO) 9.7 K/uL (4.3-11.0)
[2019-01-07 07:42] VITALS: BP 119/70
--- NOTE | 2019-01-07 08:45 | NUR ---
RT NOTE RECEIVED PT MECHANICALLY VENTILATED VIA CUFFED TRACHEOSTOMY TUBE. CUFF INFLATED. TRACH TUBE MIDLINE AND SECURE. VENTILATOR SETTINGS PRESCRIBED. ALARMS SET PER PROTOCOL AND AUDIBLE. VENT PLUGGED IN TO RED OUTLET. AMBU BAG AND BACK UP TRACH AT BED SIDE. NO DISTRESS NOTED. Addendum: 01/07/19 at 0845 by GLENIS MUNIZ RT Amended: Links added.
--- NOTE | 2019-01-07 08:55 | NUR ---
Seen by Dr Cleveland. Relayed CBC result to him and notified him that CENTRAL OFFICE ASSOCIATE Germaine Mike ordered it because pharmacy was asking why pt is not on an anticoagulant. Dr Cleveland ordered Chem 7, if Cr less than 0.8, start Lovenox 40 mg SC q 24 hours for DVT prophylaxis and if Cr greater than 0.8, call him.
[2019-01-07] MEDS: FAMOTIDINE (20 MG) 20 MG TABLET GT SCH ×2 (09:00→21:42)
[2019-01-07] MEDS: HYDROGEN PEROXIDE 480 ML BOTTLE TP SCH ×2 (09:00→21:08)
[2019-01-07] MEDS: LEVETIRACETAM SOL (5 ML) 100 MG/ML UDC GT SCH ×2 (09:00→21:42)
[2019-01-07] MEDS: POLYVINYL ALCOHOL 15 ML BOTTLE EACHEYE SCH ×4 (09:00→21:42)
[2019-01-07] MEDS: VITAMINS A AND D 56.7 GM TUBE TP SCH ×2 (09:50→21:43)
[2019-01-07] MEDS: PROSOURCE / PROSTAT (PYXIS) 30 ML UDC JT SCH ×2 (09:58→16:20)
[2019-01-07 12:23] LABS: CALCIUM, SERUM 9.7 mg/dL (8.5-10.1); CREATININE 0.3 mg/dL (0.6-1.3); POTASSIUM 4.7 mmol/L (3.5-5.1)
--- NOTE | 2019-01-07 13:35 | NUR ---
Informed Dr Cleveland that Cr 0.3. He ordered to start Lovenox 40 mg SC q 24 hours for DVT prophylaxis. Notified pt's father.
[2019-01-07] MEDS: JEVITY 1.2 CAL 1,000 ML BOTTLE JT PRN (14:24)
[2019-01-07 20:16] VITALS: BP 108/63
[2019-01-07] MEDS: ENOXAPARIN SODIUM 40 MG/0.4 ML DISP.SYRIN SQ SCH (21:42)
[2019-01-07] MEDS: POLYETHYLENE GLYCOL 3350 17 GM POWD.PACK GT SCH (21:43)
[2019-01-08] MEDS: ERYTHROMYCIN ETHYLSUCCINATE 200 MG/5 ML SUSPENSION GT SCH ×4 (00:12→17:47)
[2019-01-08] MEDS: ALBUTEROL FS 2.5 MG/3 ML VIAL.NEB NEB SCH ×4 (00:54→20:09)
[2019-01-08] MEDS: FAMOTIDINE (20 MG) 20 MG TABLET GT SCH ×2 (09:00→21:45)
[2019-01-08] MEDS: POLYVINYL ALCOHOL 15 ML BOTTLE EACHEYE SCH ×4 (09:00→21:45)
[2019-01-08] MEDS: LEVETIRACETAM SOL (5 ML) 100 MG/ML UDC GT SCH ×2 (09:00→21:45)
[2019-01-08] MEDS: VITAMINS A AND D 56.7 GM TUBE TP SCH ×2 (09:00→21:45)
[2019-01-08] MEDS: PROSOURCE / PROSTAT (PYXIS) 30 ML UDC JT SCH ×2 (09:00→17:47)
--- NOTE | 2019-01-08 10:06 | NUR ---
RT NOTE: REC'D TRACH PT ON [facility] VENT ON NOTED SETTINGS PER MD ORDERS. TRACH IS PATENT AND SECURED. TRACH CARE DONE. HAND POTTER DONE. SX DONE PRN. VENT PLUGGED INTO RED OUTLET. ALARMS ON AND AUDIBLE. RAGHU LEIGH @ BEDSIDE. NO RESP DISTRESS NOTED AT THIS TIME. WILL CONT TO MONITOR PT. Addendum: 01/08/19 at 1006 by KYM DUEÑAS RT Amended: Links added.
[2019-01-08 11:50] VITALS: BP 103/61
[2019-01-08] MEDS: HYDROGEN PEROXIDE 480 ML BOTTLE TP SCH ×2 (12:58→21:06)
[2019-01-08] MEDS: JEVITY 1.2 CAL 1,000 ML BOTTLE JT PRN (13:09)
[2019-01-08 19:52] VITALS: BP 101/62
--- NOTE | 2019-01-08 21:35 | NUR ---
RT NOTE PT RECEIVED TRACHED ON MECHANICAL VENTILATION. AWAKE/ALERT. AMBU BAG/BACK UP TRACH @ BEDSIDE. TX GIVEN, NO ADVERSE REACTIONS NOTED. SX DONE, TRACH SECURED AND PATENT. ALARMS ON AND AUDIBLE. NO SOB NOTED. WILL MONITOR. Addendum: 01/08/19 at 2140 by MILAN CARRASCO RT Amended: Links added.
[2019-01-08] MEDS: ENOXAPARIN SODIUM 40 MG/0.4 ML DISP.SYRIN SQ SCH (21:45)
[2019-01-08] MEDS: POLYETHYLENE GLYCOL 3350 17 GM POWD.PACK GT SCH (22:07)
[2019-01-09] MEDS: ERYTHROMYCIN ETHYLSUCCINATE 200 MG/5 ML SUSPENSION GT SCH ×4 (00:29→17:15)
[2019-01-09] MEDS: ALBUTEROL FS 2.5 MG/3 ML VIAL.NEB NEB SCH ×4 (01:45→19:58)
[2019-01-09 08:15] VITALS: BP 116/72
[2019-01-09] MEDS: VITAMINS A AND D 56.7 GM TUBE TP SCH ×2 (09:15→21:33)
[2019-01-09] MEDS: LEVETIRACETAM SOL (5 ML) 100 MG/ML UDC GT SCH ×2 (09:15→21:33)
[2019-01-09] MEDS: POLYVINYL ALCOHOL 15 ML BOTTLE EACHEYE SCH ×4 (09:15→21:33)
[2019-01-09] MEDS: FAMOTIDINE (20 MG) 20 MG TABLET GT SCH ×2 (09:15→21:33)
[2019-01-09] MEDS: PROSOURCE / PROSTAT (PYXIS) 30 ML UDC JT SCH ×2 (09:15→17:15)
[2019-01-09] MEDS: HYDROGEN PEROXIDE 480 ML BOTTLE TP SCH ×2 (09:40→19:58)
[2019-01-09] MEDS: JEVITY 1.2 CAL 1,000 ML BOTTLE JT PRN (17:15)
[2019-01-09 20:21] VITALS: BP 98/65
[2019-01-09] MEDS: ENOXAPARIN SODIUM 40 MG/0.4 ML DISP.SYRIN SQ SCH (21:00)
[2019-01-09] MEDS: POLYETHYLENE GLYCOL 3350 17 GM POWD.PACK GT SCH (22:23)
[2019-01-10] MEDS: ERYTHROMYCIN ETHYLSUCCINATE 200 MG/5 ML SUSPENSION GT SCH ×5 (00:19→23:04)
[2019-01-10] MEDS: ALBUTEROL FS 2.5 MG/3 ML VIAL.NEB NEB SCH ×4 (01:45→19:52)
[2019-01-10 08:07] VITALS: BP 101/63
[2019-01-10] MEDS: HYDROGEN PEROXIDE 480 ML BOTTLE TP SCH ×2 (09:00→20:34)
[2019-01-10] MEDS: FAMOTIDINE (20 MG) 20 MG TABLET GT SCH ×2 (09:04→20:33)
[2019-01-10] MEDS: POLYVINYL ALCOHOL 15 ML BOTTLE EACHEYE SCH ×4 (09:04→20:33)
[2019-01-10] MEDS: LEVETIRACETAM SOL (5 ML) 100 MG/ML UDC GT SCH ×2 (09:04→20:33)
[2019-01-10] MEDS: VITAMINS A AND D 56.7 GM TUBE TP SCH ×2 (09:05→20:34)
[2019-01-10] MEDS: PROSOURCE / PROSTAT (PYXIS) 30 ML UDC JT SCH ×2 (09:05→17:18)
--- NOTE | 2019-01-10 12:04 | NUR ---
RT NOTE RECEIVED PT MECHANICALLY VENTILATED VIA CUFFED TRACHEOSTOMY TUBE. CUFF INFLATED. TRACH TUBE MIDLINE AND SECURE. VENTILATOR SETTINGS PRESCRIBED. ALARMS SET PER PROTOCOL AND AUDIBLE. VENT PLUGGED IN TO RED OUTLET. AMBU BAG AND BACK UP TRACH AT BED SIDE. NO DISTRESS NOTED. Addendum: 01/10/19 at 1205 by GLENIS MUNIZ RT Amended: Links added.
[2019-01-10] MEDS: JEVITY 1.2 CAL 1,000 ML BOTTLE JT PRN (18:18)
[2019-01-10] MEDS: ENOXAPARIN SODIUM 40 MG/0.4 ML DISP.SYRIN SQ SCH (20:34)
[2019-01-10 20:49] VITALS: BP 131/70
[2019-01-10] MEDS: POLYETHYLENE GLYCOL 3350 17 GM POWD.PACK GT SCH (21:00)
[2019-01-11] MEDS: ALBUTEROL FS 2.5 MG/3 ML VIAL.NEB NEB SCH ×4 (01:48→20:06)
[2019-01-11] MEDS: ERYTHROMYCIN ETHYLSUCCINATE 200 MG/5 ML SUSPENSION GT SCH ×3 (05:10→23:18)
[2019-01-11 08:00] VITALS: BP 103/58
[2019-01-11] MEDS: HYDROGEN PEROXIDE 480 ML BOTTLE TP SCH ×2 (08:51→20:13)
[2019-01-11] MEDS: PROSOURCE / PROSTAT (PYXIS) 30 ML UDC JT SCH ×2 (08:59→16:22)
[2019-01-11] MEDS: LEVETIRACETAM SOL (5 ML) 100 MG/ML UDC GT SCH ×2 (08:59→20:12)
[2019-01-11] MEDS: FAMOTIDINE (20 MG) 20 MG TABLET GT SCH ×2 (08:59→20:12)
[2019-01-11] MEDS: POLYVINYL ALCOHOL 15 ML BOTTLE EACHEYE SCH ×4 (08:59→20:12)
[2019-01-11] MEDS: VITAMINS A AND D 56.7 GM TUBE TP SCH ×2 (09:00→20:13)
--- NOTE | 2019-01-11 15:45 | NUR ---
RT NOTES TRACH TUBE IN PLACE, PATENT, AND SECURED WITH TRACH TIE. ALARMS ON AND AUDIBLE. VENT PLUGGED IN TO RED OUTLET. AMBU BAG AND BACK UP TRACH BY THE BEDSIDE. PT STABLE AT THIS TIME. WILL CONTINUE TO MONITOR. Addendum: 01/11/19 at 1545 by EDNA CORTEZ RT Amended: Links added.
--- NOTE | 2019-01-11 15:46 | NUR ---
RT NOTES TRACH TUBE IN PLACE, PATENT, AND SECURED WITH TRACH TIE. ALARMS ON AND AUDIBLE. VENT PLUGGED IN TO RED OUTLET. AMBU BAG AND BACK UP TRACH BY THE BEDSIDE. PT STABLE AT THIS TIME. WILL CONTINUE TO MONITOR. Addendum: 01/11/19 at 1546 by EDNA CORTEZ RT Amended: Links added.
--- NOTE | 2019-01-11 20:06 | NUR ---
RECEIVED TRACH PT ON MECH VENT WITH NOTED SETTINGS. PT IS ALERT AND AWAKE. TRACH IS PATENT AND SECURED. CHILD AND FAMILY SERVICES SPECIALIST DONE. Q6 BREATHING TX GIVEN WITH NO ADVERSE REACTION NOTED. SX DONE PRN. VENT PLUGGED INTO RED OUTLET. ALARMS ON AND AUDIBLE. AMBU BAG @ BEDSIDE. NO RESP DISTRESS AT THIS TIME. WILL CONT TO MONITOR PT T/O SHIFT.
[2019-01-11] MEDS: ENOXAPARIN SODIUM 40 MG/0.4 ML DISP.SYRIN SQ SCH (20:12)
[2019-01-11 20:34] VITALS: BP 94/67
[2019-01-11] MEDS: POLYETHYLENE GLYCOL 3350 17 GM POWD.PACK GT SCH (21:13)
[2019-01-12] MEDS: ALBUTEROL FS 2.5 MG/3 ML VIAL.NEB NEB SCH ×4 (01:18→19:04)
[2019-01-12] MEDS: ERYTHROMYCIN ETHYLSUCCINATE 200 MG/5 ML SUSPENSION GT SCH ×4 (05:04→23:11)
[2019-01-12] MEDS: JEVITY 1.2 CAL 1,000 ML BOTTLE JT PRN (05:04)
[2019-01-12 07:21] VITALS: BP 114/67
[2019-01-12] MEDS: POLYVINYL ALCOHOL 15 ML BOTTLE EACHEYE SCH ×4 (08:36→21:39)
[2019-01-12] MEDS: LEVETIRACETAM SOL (5 ML) 100 MG/ML UDC GT SCH ×2 (08:36→21:39)
[2019-01-12] MEDS: PROSOURCE / PROSTAT (PYXIS) 30 ML UDC JT SCH ×2 (08:36→17:12)
[2019-01-12] MEDS: FAMOTIDINE (20 MG) 20 MG TABLET GT SCH ×2 (08:36→21:39)
[2019-01-12] MEDS: VITAMINS A AND D 56.7 GM TUBE TP SCH ×2 (08:36→21:40)
[2019-01-12] MEDS: HYDROGEN PEROXIDE 480 ML BOTTLE TP SCH ×2 (09:00→19:04)
--- NOTE | 2019-01-12 15:45 | NUR ---
RT NOTE RECEIVED PT MECHANICALLY VENTILATED VIA CUFFED TRACHEOSTOMY TUBE. CUFF INFLATED. TRACH TUBE MIDLINE AND SECURE. VENTILATOR SETTINGS PRESCRIBED. ALARMS SET PER PROTOCOL AND AUDIBLE. VENT PLUGGED IN TO RED OUTLET. AMBU BAG AND BACK UP TRACH AT BED SIDE. NO DISTRESS NOTED. Addendum: 01/12/19 at 1545 by GLENIS MUNIZ RT Amended: Links added.
[2019-01-12 20:32] VITALS: BP 102/61
[2019-01-12] MEDS: ENOXAPARIN SODIUM 40 MG/0.4 ML DISP.SYRIN SQ SCH (21:40)
[2019-01-12] MEDS: POLYETHYLENE GLYCOL 3350 17 GM POWD.PACK GT SCH (21:40)
[2019-01-13] MEDS: ALBUTEROL FS 2.5 MG/3 ML VIAL.NEB NEB SCH ×4 (01:43→19:44)
--- NOTE | 2019-01-13 03:34 | NUR ---
[facility] RECEIVED ON TRACH TO VENT WITH SETTINGS OF AC 14, 450 VT, 40%, +0. SUCTIONED FOR MODERATE, THICK, WHITE SECRETIONS. GIVEN IN-LINE TREATMENTS WITH NO ADVERSE REACTIONS. AMBU BAG AT BEDSIDE. VENT ALARM AUDIBLE AND VISIBLE. VENT PLUGGED INTO RED OUTLET. TRACH CARE DONE. Addendum: 01/13/19 at 0335 by MALLY NGUYEN RT Amended: Links added.
[2019-01-13] MEDS: ERYTHROMYCIN ETHYLSUCCINATE 200 MG/5 ML SUSPENSION GT SCH ×4 (05:59→23:46)
[2019-01-13] MEDS: HYDROGEN PEROXIDE 480 ML BOTTLE TP SCH ×2 (08:22→21:45)
[2019-01-13] MEDS: FAMOTIDINE (20 MG) 20 MG TABLET GT SCH ×2 (08:26→20:23)
[2019-01-13] MEDS: VITAMINS A AND D 56.7 GM TUBE TP SCH ×2 (08:26→20:27)
[2019-01-13] MEDS: LEVETIRACETAM SOL (5 ML) 100 MG/ML UDC GT SCH ×2 (08:26→20:23)
[2019-01-13] MEDS: PROSOURCE / PROSTAT (PYXIS) 30 ML UDC JT SCH ×2 (08:26→16:57)
[2019-01-13] MEDS: POLYVINYL ALCOHOL 15 ML BOTTLE EACHEYE SCH ×4 (08:26→20:23)
[2019-01-13 10:48] VITALS: BP 97/57
--- NOTE | 2019-01-13 11:31 | NUR ---
TSERING contacted the pt.s responsible libertarian/Aunt, Clif [phone] to invite them to the next IDT Plan of Care Conference taking place 01/17/19 from 12:30-1:30pm in the activities room. Call went to voicemail and TSERING left a detailed message with call back number.
[2019-01-13] MEDS: JEVITY 1.2 CAL 1,000 ML BOTTLE JT PRN (13:11)
--- NOTE | 2019-01-13 16:28 | NUR ---
Patient is awake. Able to make simple needs known. Trach with vent working at prescribed settings. Routine trach care provided. GT in place patent no residual. Tolerated GT formula well. HOB elevated aspiration precautions maintained. Patient with decreased mobility with DVT pumps on bilateral lower extremities as ordered SCD working properly positioned properly. No skin breakdown noted. Heels kept off pressure. All need met and attended.
[2019-01-13 19:39] VITALS: BP 100/55
[2019-01-13] MEDS: ENOXAPARIN SODIUM 40 MG/0.4 ML DISP.SYRIN SQ SCH (20:27)
[2019-01-13] MEDS: POLYETHYLENE GLYCOL 3350 17 GM POWD.PACK GT SCH (22:30)
[2019-01-14] MEDS: ALBUTEROL FS 2.5 MG/3 ML VIAL.NEB NEB SCH ×4 (01:39→20:11)
[2019-01-14] MEDS: ERYTHROMYCIN ETHYLSUCCINATE 200 MG/5 ML SUSPENSION GT SCH ×4 (05:38→23:34)
[2019-01-14 07:55] VITALS: BP 115/62
[2019-01-14] MEDS: LEVETIRACETAM SOL (5 ML) 100 MG/ML UDC GT SCH ×2 (08:28→21:41)
[2019-01-14] MEDS: FAMOTIDINE (20 MG) 20 MG TABLET GT SCH ×2 (08:28→21:41)
[2019-01-14] MEDS: POLYVINYL ALCOHOL 15 ML BOTTLE EACHEYE SCH ×4 (08:28→21:41)
[2019-01-14] MEDS: PROSOURCE / PROSTAT (PYXIS) 30 ML UDC JT SCH ×2 (08:29→16:24)
[2019-01-14] MEDS: VITAMINS A AND D 56.7 GM TUBE TP SCH ×2 (08:29→21:42)
[2019-01-14] MEDS: HYDROGEN PEROXIDE 480 ML BOTTLE TP SCH ×2 (09:00→21:41)
[2019-01-14] MEDS: JEVITY 1.2 CAL 1,000 ML BOTTLE JT PRN (14:31)
--- NOTE | 2019-01-14 18:10 | NUR ---
RT NOTE PT REMAINS MECHANICALLY VENTILATED VIA CUFFED TRACHEOSTOMY TUBE. CUFF INFLATED. TRACH TUBE MIDLINE AND SECURE. VENTILATOR SETTINGS PRESCRIBED. ALARMS SET PER PROTOCOL AND AUDIBLE. VENT PLUGGED IN TO RED OUTLET. AMBU BAG AND BACK UP TRACH AT BED SIDE. NO DISTRESS NOTED. Addendum: 01/14/19 at 1810 by GLENIS MUNIZ RT Amended: Links added.
[2019-01-14 20:17] VITALS: BP 108/63
[2019-01-14] MEDS: ENOXAPARIN SODIUM 40 MG/0.4 ML DISP.SYRIN SQ SCH (21:41)
[2019-01-14] MEDS: POLYETHYLENE GLYCOL 3350 17 GM POWD.PACK GT SCH (21:42)
[2019-01-15] MEDS: ALBUTEROL FS 2.5 MG/3 ML VIAL.NEB NEB SCH ×4 (01:14→19:43)
[2019-01-15] MEDS: ERYTHROMYCIN ETHYLSUCCINATE 200 MG/5 ML SUSPENSION GT SCH ×3 (05:54→17:44)
[2019-01-15 08:00] VITALS: BP 127/80
[2019-01-15] MEDS: POLYVINYL ALCOHOL 15 ML BOTTLE EACHEYE SCH ×4 (08:59→20:37)
[2019-01-15] MEDS: FAMOTIDINE (20 MG) 20 MG TABLET GT SCH ×2 (08:59→20:37)
[2019-01-15] MEDS: PROSOURCE / PROSTAT (PYXIS) 30 ML UDC JT SCH ×2 (08:59→16:54)
[2019-01-15] MEDS: VITAMINS A AND D 56.7 GM TUBE TP SCH ×2 (08:59→20:38)
[2019-01-15] MEDS: LEVETIRACETAM SOL (5 ML) 100 MG/ML UDC GT SCH ×2 (08:59→20:37)
[2019-01-15] MEDS: HYDROGEN PEROXIDE 480 ML BOTTLE TP SCH ×2 (09:22→20:09)
[2019-01-15] MEDS: JEVITY 1.2 CAL 1,000 ML BOTTLE JT PRN (15:22)
[2019-01-15 20:06] VITALS: BP 107/61
--- NOTE | 2019-01-15 20:15 | NUR ---
PT RCVD TRACH'D ON MECHANICAL VENT WITH CHARTED SETTINGS. PT BRAULIO TX WELL. SX DONE. PT TRACH IS PATENT AND SECURE. VENT ALARMS APPEAR TO BE FUNCTIONING PROPERLY. VENT PLUGGED INTO RED OUTLET. AMBU BAG AT BEDSIDE. NO SOB NOTED. Addendum: 01/15/19 at 2015 by STANFORD PETERS RT Amended: Links added.
[2019-01-15] MEDS: ENOXAPARIN SODIUM 40 MG/0.4 ML DISP.SYRIN SQ SCH (20:37)
[2019-01-15] MEDS: POLYETHYLENE GLYCOL 3350 17 GM POWD.PACK GT SCH (22:06)
[2019-01-16] MEDS: ERYTHROMYCIN ETHYLSUCCINATE 200 MG/5 ML SUSPENSION GT SCH ×5 (00:24→23:03)
[2019-01-16] MEDS: ALBUTEROL FS 2.5 MG/3 ML VIAL.NEB NEB SCH ×4 (01:00→20:10)
[2019-01-16 07:40] VITALS: BP 109/66
[2019-01-16] MEDS: POLYVINYL ALCOHOL 15 ML BOTTLE EACHEYE SCH ×4 (08:49→21:03)
[2019-01-16] MEDS: VITAMINS A AND D 56.7 GM TUBE TP SCH ×2 (08:49→21:04)
[2019-01-16] MEDS: PROSOURCE / PROSTAT (PYXIS) 30 ML UDC JT SCH ×2 (08:49→16:53)
[2019-01-16] MEDS: LEVETIRACETAM SOL (5 ML) 100 MG/ML UDC GT SCH ×2 (08:49→21:03)
[2019-01-16] MEDS: FAMOTIDINE (20 MG) 20 MG TABLET GT SCH ×2 (08:49→21:03)
[2019-01-16] MEDS: HYDROGEN PEROXIDE 480 ML BOTTLE TP SCH ×2 (09:42→20:29)
--- NOTE | 2019-01-16 09:42 | NUR ---
RT NOTE: REC'D TRACH PT ON [facility] VENT ON NOTED SETTINGS PER MD ORDERS. TRACH IS PATENT AND SECURED. TRACH CARE DONE. EARLY INTERVENTION SCHOOL PSYCHOLOGIST DONE. SX DONE PRN. VENT PLUGGED INTO RED OUTLET. ALARMS ON AND AUDIBLE. RAGHU LEIGH @ BEDSIDE. NO RESP DISTRESS NOTED AT THIS TIME. WILL CONT TO MONITOR PT. Addendum: 01/16/19 at 0942 by KYM DUEÑAS RT Amended: Links added.
[2019-01-16] MEDS: JEVITY 1.2 CAL 1,000 ML BOTTLE JT PRN (16:53)
--- NOTE | 2019-01-16 20:10 | NUR ---
RECEIVED TRACH PT ON MECH VENT WITH NOTED SETTINGS. PT IS ALERT, AWAKE AND RESPONSIVE. TRACH IS PATENT AND SECURED. INFANT ROOM TEACHER DONE. Q6 BREATHING TX GIVEN WITH NO ADVERSE REACTION NOTED. SX DONE PRN. VENT PLUGGED INTO RED OUTLET. ALARMS ON AND AUDIBLE. AMBU BAG @ BEDSIDE. NO RESP DISTRESS AT THIS TIME. WILL CONT TO MONITOR PT T/O SHIFT.
[2019-01-16 20:18] VITALS: BP_SYST 103; BP_SYST 98; BP_DIAS 54; BP_DIAS 71
[2019-01-16] MEDS: Z GUARD REMEDY 4 OZ OINT TP SCH (21:04)
[2019-01-16] MEDS: POLYETHYLENE GLYCOL 3350 17 GM POWD.PACK GT SCH (21:04)
[2019-01-16] MEDS: ENOXAPARIN SODIUM 40 MG/0.4 ML DISP.SYRIN SQ SCH (21:04)
[2019-01-17] MEDS: ALBUTEROL FS 2.5 MG/3 ML VIAL.NEB NEB SCH ×4 (01:22→20:24)
[2019-01-17] MEDS: ERYTHROMYCIN ETHYLSUCCINATE 200 MG/5 ML SUSPENSION GT SCH ×4 (05:44→23:33)
[2019-01-17] MEDS: HYDROGEN PEROXIDE 480 ML BOTTLE TP SCH ×2 (07:29→20:48)
[2019-01-17 08:00] VITALS: BP 100/71
[2019-01-17] MEDS: POLYVINYL ALCOHOL 15 ML BOTTLE EACHEYE SCH ×4 (08:50→21:04)
[2019-01-17] MEDS: PROSOURCE / PROSTAT (PYXIS) 30 ML UDC JT SCH ×2 (08:50→16:33)
[2019-01-17] MEDS: FAMOTIDINE (20 MG) 20 MG TABLET GT SCH ×2 (08:50→21:04)
[2019-01-17] MEDS: LEVETIRACETAM SOL (5 ML) 100 MG/ML UDC GT SCH ×2 (08:50→21:04)
[2019-01-17] MEDS: Z GUARD REMEDY 4 OZ OINT TP SCH ×2 (08:50→21:04)
[2019-01-17] MEDS: VITAMINS A AND D 56.7 GM TUBE TP SCH ×2 (08:51→21:05)
--- NOTE | 2019-01-17 14:56 | NUR ---
INTERDISCIPLINARY PLAN OF CARE CONFERENCE took place today. The patients responsible libertarian/ Jimteeteeusha Mitchell [phone] was not able to attend or participate via phone conference. Charge nurse discussed pt. is stable; 01/07 Lovenox 40mg SQ q DVT prophyloxis ; & Z-guard continued on buttocks sacral wound. Dr. Cleveland and Interdisciplinary team discussed the plan of care in detail. Current orders as well as treatments and medications were reviewed. Please see other disciplines IDT notes for further details.
--- NOTE | 2019-01-17 14:57 | NUR ---
TSERING gave the pt.'s conservatorAsuncion the Family Satisfaction Survey. Per Family, they will return the Family Satisfaction Survey to SW or nursing staff once completed. Noted.
--- NOTE | 2019-01-17 15:23 | NUR ---
RT NOTE: RECEIVED PT ON ORDERED NOTED AC VENT SETTINGS. NO RESPIRATORY DISTRESS NOTED. TRACH CHECKED SECURE AND PATENT. SXD AND LAVAGED Q ROUND AND NEEDED. TXS GIVEN ORDERED WITH NO ADVERSE REACTIONS NOTED. TRACH CARE DONE. SPARE TRACH AND AMBU BAG @ BEDSIDE. ALARMS CHECKED. VENT PLUGGED INTO RED OUTLET.
--- NOTE | 2019-01-17 17:15 | NUR ---
D/C SCD/DVT pump patient already on Lovenox per Dr. Cleveland.
[2019-01-17 19:37] VITALS: BP_SYST 102; BP_SYST 116; BP_DIAS 56; BP_DIAS 71
--- NOTE | 2019-01-17 20:25 | NUR ---
RT PT RECEIVED TRACHED ON MECHANICAL VENT ON CURRENT SETTINGS. PT TOLERATED TREATMENT WELL. SUCTION PERFORMED. PT IN NO DISTRESS. TRACH IS PATENT AND SECURE. VENT ALARMS ON AND AUDIBLE. AMBU BAG AT HEAD OF BED. VENT PLUGGED IN TO RED OUTLET. WILL CONTINUE TO MONITOR. Addendum: 01/17/19 at 2052 by KEVIN HARPER RT Amended: Links added.
[2019-01-17] MEDS: ENOXAPARIN SODIUM 40 MG/0.4 ML DISP.SYRIN SQ SCH (21:04)
[2019-01-17] MEDS: POLYETHYLENE GLYCOL 3350 17 GM POWD.PACK GT SCH (21:05)
[2019-01-18] MEDS: ALBUTEROL FS 2.5 MG/3 ML VIAL.NEB NEB SCH ×4 (01:44→20:04)
[2019-01-18] MEDS: ERYTHROMYCIN ETHYLSUCCINATE 200 MG/5 ML SUSPENSION GT SCH ×4 (05:38→23:00)
[2019-01-18 07:36] VITALS: BP 102/57
[2019-01-18] MEDS: HYDROGEN PEROXIDE 480 ML BOTTLE TP SCH ×2 (08:15→20:04)
[2019-01-18] MEDS: LEVETIRACETAM SOL (5 ML) 100 MG/ML UDC GT SCH ×2 (09:50→20:37)
[2019-01-18] MEDS: POLYVINYL ALCOHOL 15 ML BOTTLE EACHEYE SCH ×4 (09:50→20:37)
[2019-01-18] MEDS: VITAMINS A AND D 56.7 GM TUBE TP SCH ×2 (09:51→20:39)
[2019-01-18] MEDS: PROSOURCE / PROSTAT (PYXIS) 30 ML UDC JT SCH ×2 (09:51→17:32)
[2019-01-18] MEDS: FAMOTIDINE (20 MG) 20 MG TABLET GT SCH ×2 (09:51→20:37)
[2019-01-18] MEDS: Z GUARD REMEDY 4 OZ OINT TP SCH ×2 (09:51→20:39)
[2019-01-18] MEDS: JEVITY 1.2 CAL 1,000 ML BOTTLE JT PRN (18:19)
[2019-01-18 20:00] VITALS: BP 108/67
[2019-01-18] MEDS: ENOXAPARIN SODIUM 40 MG/0.4 ML DISP.SYRIN SQ SCH (20:39)
[2019-01-18] MEDS: POLYETHYLENE GLYCOL 3350 17 GM POWD.PACK GT SCH (22:34)
[2019-01-19] MEDS: ALBUTEROL FS 2.5 MG/3 ML VIAL.NEB NEB SCH ×4 (00:58→20:05)
[2019-01-19] MEDS: ERYTHROMYCIN ETHYLSUCCINATE 200 MG/5 ML SUSPENSION GT SCH ×4 (05:18→23:57)
[2019-01-19] MEDS: HYDROGEN PEROXIDE 480 ML BOTTLE TP SCH ×2 (07:41→20:54)
[2019-01-19 08:05] VITALS: BP 106/75
[2019-01-19] MEDS: POLYVINYL ALCOHOL 15 ML BOTTLE EACHEYE SCH ×4 (08:53→20:02)
[2019-01-19] MEDS: LEVETIRACETAM SOL (5 ML) 100 MG/ML UDC GT SCH ×2 (08:54→20:02)
[2019-01-19] MEDS: FAMOTIDINE (20 MG) 20 MG TABLET GT SCH ×2 (08:54→20:02)
[2019-01-19] MEDS: PROSOURCE / PROSTAT (PYXIS) 30 ML UDC JT SCH ×2 (08:59→17:33)
[2019-01-19] MEDS: VITAMINS A AND D 56.7 GM TUBE TP SCH ×2 (09:00→20:03)
[2019-01-19] MEDS: Z GUARD REMEDY 4 OZ OINT TP SCH ×2 (09:02→20:03)
--- NOTE | 2019-01-19 15:08 | NUR ---
RT Pt received trach'd and on mech vent w charted settings. Monthly trach change done w minimal bleeding which has now stopped. Pt is stable. No respiratory distress or sob noted t/o shift. Will continue to monitor.
--- NOTE | 2019-01-19 15:08 | NUR ---
RT Pt received trach'd and on [facility] vent w charted settings. Vent is plugged into the red outlet. Alarms are set and audible. Bmv at hob. Monthly trach change done w minimal bleeding which has not stopped. Pt is stable. No respiratory distress or sob noted t/o shift. Will continue to monitor. Addendum: 01/19/19 at 1546 by HUGH LICONA RT Amended: Links added. Addendum: 01/19/19 at 1549 by HGUH LICONA RT Monthly trach change done w minimal bleeding which has now stopped.
[2019-01-19] MEDS: ENOXAPARIN SODIUM 40 MG/0.4 ML DISP.SYRIN SQ SCH (20:03)
--- NOTE | 2019-01-19 20:06 | NUR ---
RECEIVED TRACH PT ON MECH VENT WITH NOTED SETTINGS. PT IS ALERT, AWAKE AND RESPONSIVE. TRACH IS PATENT AND SECURED. BREAST PULLER DONE. Q6 BREATHING TX GIVEN WITH NO ADVERSE REACTION NOTED. SX DONE PRN. VENT PLUGGED INTO RED OUTLET. ALARMS ON AND AUDIBLE. AMBU BAG @ BEDSIDE. NO RESP DISTRESS AT THIS TIME. WILL CONT TO MONITOR PT T/O SHIFT.
[2019-01-19 20:16] VITALS: BP 98/64
[2019-01-19] MEDS: POLYETHYLENE GLYCOL 3350 17 GM POWD.PACK GT SCH (21:52)
[2019-01-20] MEDS: ALBUTEROL FS 2.5 MG/3 ML VIAL.NEB NEB SCH ×4 (01:43→20:02)
[2019-01-20] MEDS: ERYTHROMYCIN ETHYLSUCCINATE 200 MG/5 ML SUSPENSION GT SCH ×4 (05:11→23:56)
[2019-01-20 07:52] VITALS: BP 101/69
--- NOTE | 2019-01-20 09:06 | NUR ---
RT NOTE: REC'D TRACH PT ON [facility] VENT ON NOTED SETTINGS PER MD ORDERS. TRACH IS PATENT AND SECURED. TRACH CARE DONE. OTR TANKER TRUCK DRIVER DONE. SX DONE PRN. VENT PLUGGED INTO RED OUTLET. ALARMS ON AND AUDIBLE. RAGHU LEIGH @ BEDSIDE. NO RESP DISTRESS NOTED AT THIS TIME. WILL CONT TO MONITOR PT. Addendum: 01/20/19 at 0908 by KYM DUEÑAS RT Amended: Links added.
[2019-01-20] MEDS: HYDROGEN PEROXIDE 480 ML BOTTLE TP SCH ×2 (09:20→20:19)
[2019-01-20] MEDS: POLYVINYL ALCOHOL 15 ML BOTTLE EACHEYE SCH ×4 (09:26→20:07)
[2019-01-20] MEDS: FAMOTIDINE (20 MG) 20 MG TABLET GT SCH ×2 (09:26→20:07)
[2019-01-20] MEDS: VITAMINS A AND D 56.7 GM TUBE TP SCH ×2 (09:26→20:08)
[2019-01-20] MEDS: PROSOURCE / PROSTAT (PYXIS) 30 ML UDC JT SCH ×2 (09:26→16:48)
[2019-01-20] MEDS: LEVETIRACETAM SOL (5 ML) 100 MG/ML UDC GT SCH ×2 (09:26→20:07)
[2019-01-20] MEDS: Z GUARD REMEDY 4 OZ OINT TP SCH ×2 (09:26→20:08)
[2019-01-20 20:04] VITALS: BP 127/68
[2019-01-20] MEDS: ENOXAPARIN SODIUM 40 MG/0.4 ML DISP.SYRIN SQ SCH (20:07)
[2019-01-20] MEDS: POLYETHYLENE GLYCOL 3350 17 GM POWD.PACK GT SCH (22:03)
--- NOTE | 2019-01-20 23:31 | NUR ---
PT RCVD TRACH'D ON MECHANICAL VENT WITH CHARTED SETTINGS. PT BRAULIO TX WELL. SX DONE. PT TRACH IS PATENT AND SECURE. VENT ALARMS APPEAR TO BE FUNCTIONING PROPERLY. AMBU BAG AT BEDSIDE. VENT PLUGGED INTO RED OUTLET. NO SOB NOTED. Addendum: 01/20/19 at 2331 by STANFORD PETERS RT Amended: Links added.
[2019-01-21] MEDS: ALBUTEROL FS 2.5 MG/3 ML VIAL.NEB NEB SCH ×4 (01:43→19:30)
[2019-01-21] MEDS: ERYTHROMYCIN ETHYLSUCCINATE 200 MG/5 ML SUSPENSION GT SCH ×3 (05:37→17:04)
[2019-01-21 07:33] VITALS: BP 124/70
[2019-01-21] MEDS: LEVETIRACETAM SOL (5 ML) 100 MG/ML UDC GT SCH ×2 (09:16→20:45)
[2019-01-21] MEDS: POLYVINYL ALCOHOL 15 ML BOTTLE EACHEYE SCH ×4 (09:16→20:45)
[2019-01-21] MEDS: Z GUARD REMEDY 4 OZ OINT TP SCH ×2 (09:16→20:46)
[2019-01-21] MEDS: PROSOURCE / PROSTAT (PYXIS) 30 ML UDC JT SCH ×2 (09:16→17:03)
[2019-01-21] MEDS: VITAMINS A AND D 56.7 GM TUBE TP SCH ×2 (09:16→20:46)
[2019-01-21] MEDS: FAMOTIDINE (20 MG) 20 MG TABLET GT SCH ×2 (09:16→20:45)
[2019-01-21] MEDS: HYDROGEN PEROXIDE 480 ML BOTTLE TP SCH ×2 (09:30→23:29)
--- NOTE | 2019-01-21 09:34 | NUR ---
RT NOTE: REC'D TRACH PT ON [facility] VENT ON NOTED SETTINGS PER MD ORDERS. TRACH IS PATENT AND SECURED. TRACH CARE DONE. DATA ANALYTICS ANALYST DONE. SX DONE PRN. VENT PLUGGED INTO RED OUTLET. ALARMS ON AND AUDIBLE. RAGHU LEIGH @ BEDSIDE. NO RESP DISTRESS NOTED AT THIS TIME. WILL CONT TO MONITOR PT. Addendum: 01/21/19 at 0934 by KYM DUEÑAS RT Amended: Links added.
[2019-01-21] MEDS: JEVITY 1.2 CAL 1,000 ML BOTTLE JT PRN (15:13)
[2019-01-21 20:08] VITALS: BP 100/62
[2019-01-21] MEDS: ENOXAPARIN SODIUM 40 MG/0.4 ML DISP.SYRIN SQ SCH (20:45)
[2019-01-21] MEDS: POLYETHYLENE GLYCOL 3350 17 GM POWD.PACK GT SCH (22:09)
--- NOTE | 2019-01-21 23:49 | NUR ---
PT RCVD VANDA'D ON MECHANICAL VENT WITH CHARTED SETTINGS. SX DONE. PT TRACH IS PATENT AND SECURE. VENT ALARMS APPEAR TO BE FUNCTIONING PROPERLY. AMBU BAG AT BEDSIDE. VENT PLUGGED INTO RED OUTLET. NO SOB NOTED. Addendum: 01/21/19 at 2349 by STANFORD PETERS RT Amended: Links added.
[2019-01-22] MEDS: ALBUTEROL FS 2.5 MG/3 ML VIAL.NEB NEB SCH ×4 (01:13→19:33)
[2019-01-22] MEDS: ERYTHROMYCIN ETHYLSUCCINATE 200 MG/5 ML SUSPENSION GT SCH ×4 (05:09→17:55)
[2019-01-22 07:38] VITALS: BP 108/64
[2019-01-22] MEDS: HYDROGEN PEROXIDE 480 ML BOTTLE TP SCH ×2 (09:00→19:33)
[2019-01-22] MEDS: PROSOURCE / PROSTAT (PYXIS) 30 ML UDC JT SCH ×2 (09:10→16:45)
[2019-01-22] MEDS: LEVETIRACETAM SOL (5 ML) 100 MG/ML UDC GT SCH ×2 (09:10→21:41)
[2019-01-22] MEDS: POLYVINYL ALCOHOL 15 ML BOTTLE EACHEYE SCH ×4 (09:10→21:41)
[2019-01-22] MEDS: FAMOTIDINE (20 MG) 20 MG TABLET GT SCH ×2 (09:10→21:41)
[2019-01-22] MEDS: Z GUARD REMEDY 4 OZ OINT TP SCH ×2 (09:11→21:41)
[2019-01-22] MEDS: VITAMINS A AND D 56.7 GM TUBE TP SCH ×2 (09:11→21:41)
--- NOTE | 2019-01-22 12:52 | NUR ---
Seen and examined by Germaine Mike, APPRENTICE COSMETOLOGIST, NNO given.
[2019-01-22] MEDS: JEVITY 1.2 CAL 1,000 ML BOTTLE JT PRN (16:46)
[2019-01-22 20:02] VITALS: BP 100/61
[2019-01-22] MEDS: POLYETHYLENE GLYCOL 3350 17 GM POWD.PACK GT SCH (21:41)
[2019-01-22] MEDS: ENOXAPARIN SODIUM 40 MG/0.4 ML DISP.SYRIN SQ SCH (21:41)
[2019-01-23] MEDS: ERYTHROMYCIN ETHYLSUCCINATE 200 MG/5 ML SUSPENSION GT SCH ×4 (00:14→17:16)
[2019-01-23] MEDS: ALBUTEROL FS 2.5 MG/3 ML VIAL.NEB NEB SCH ×4 (01:47→20:25)
--- NOTE | 2019-01-23 05:29 | NUR ---
PATIENT RECEIVED ON TRACH TO VENT WITH SETTINGS OF AC 14, 450 VT, 40%, +0. SUCTIONED WITH LAVAGE FOR MINIMAL, THIN, FROTHY-WHITE SECRETIONS. GIVEN IN-LINE TREATMENTS WITH NO ADVERSE REACTIONS. AMBU BAG AT BEDSIDE. VENT AND PULSE OXIMETER ALARMS AUDIBLE AND VISIBLE. VENT PLUGGED INTO RED OUTLET. Addendum: 01/23/19 at 0530 by MALLY NGUYEN RT Amended: Links added.
[2019-01-23 07:29] VITALS: BP 110/70
[2019-01-23] MEDS: PROSOURCE / PROSTAT (PYXIS) 30 ML UDC JT SCH ×2 (08:52→17:16)
[2019-01-23] MEDS: POLYVINYL ALCOHOL 15 ML BOTTLE EACHEYE SCH ×4 (08:52→20:56)
[2019-01-23] MEDS: LEVETIRACETAM SOL (5 ML) 100 MG/ML UDC GT SCH ×2 (08:52→20:56)
[2019-01-23] MEDS: FAMOTIDINE (20 MG) 20 MG TABLET GT SCH ×2 (08:52→20:56)
[2019-01-23] MEDS: Z GUARD REMEDY 4 OZ OINT TP SCH ×2 (09:00→20:56)
[2019-01-23] MEDS: VITAMINS A AND D 56.7 GM TUBE TP SCH ×2 (09:00→20:56)
[2019-01-23] MEDS: HYDROGEN PEROXIDE 480 ML BOTTLE TP SCH ×2 (09:00→20:56)
[2019-01-23] MEDS: JEVITY 1.2 CAL 1,000 ML BOTTLE JT PRN (17:17)
--- NOTE | 2019-01-23 18:37 | NUR ---
RT NOTE PT REMAINS MECHANICALLY VENTILATED VIA CUFFED TRACHEOSTOMY TUBE. CUFF INFLATED. TRACH TUBE MIDLINE AND SECURE. VENTILATOR SETTINGS PRESCRIBED. ALARMS SET PER PROTOCOL AND AUDIBLE. VENT PLUGGED IN TO RED OUTLET. AMBU BAG AND BACK UP TRACH AT BED SIDE NO DISTRESS NOTED. Addendum: 01/23/19 at 1837 by GLENIS MUNIZ RT Amended: Links added.
[2019-01-23 19:47] VITALS: BP 119/70
--- NOTE | 2019-01-23 20:27 | NUR ---
RECEIVED TRACH PT ON MECH VENT WITH NOTED SETTINGS. PT IS ALERT, AWAKE AND RESPONSIVE. TRACH IS PATENT AND SECURED. AUTO FINANCE SALES REP DONE. Q6 BREATHING TX GIVEN WITH NO ADVERSE REACTION NOTED. SX DONE PRN. VENT PLUGGED INTO RED OUTLET. ALARMS ON AND AUDIBLE. AMBU BAG @ BEDSIDE. NO RESP DISTRESS AT THIS TIME. WILL CONT TO MONITOR PT T/O SHIFT.
[2019-01-23] MEDS: POLYETHYLENE GLYCOL 3350 17 GM POWD.PACK GT SCH (21:10)
[2019-01-23] MEDS: ENOXAPARIN SODIUM 40 MG/0.4 ML DISP.SYRIN SQ SCH (21:21)
--- NOTE | 2019-01-24 00:26 | NUR ---
RN NOTES Erythromycin not in stock. Notified RN Crude Oil Treater, stock could not be found. Will follow up in AM shift.
[2019-01-24] MEDS: ALBUTEROL FS 2.5 MG/3 ML VIAL.NEB NEB SCH ×4 (01:42→19:56)
[2019-01-24] MEDS: ERYTHROMYCIN ETHYLSUCCINATE 200 MG/5 ML SUSPENSION GT SCH ×5 (05:28→23:32)
[2019-01-24] MEDS: POLYVINYL ALCOHOL 15 ML BOTTLE EACHEYE SCH ×4 (08:04→21:05)
[2019-01-24] MEDS: LEVETIRACETAM SOL (5 ML) 100 MG/ML UDC GT SCH ×2 (08:05→21:05)
[2019-01-24] MEDS: FAMOTIDINE (20 MG) 20 MG TABLET GT SCH ×2 (08:05→21:05)
[2019-01-24] MEDS: VITAMINS A AND D 56.7 GM TUBE TP SCH ×2 (08:07→21:05)
[2019-01-24] MEDS: Z GUARD REMEDY 4 OZ OINT TP SCH ×2 (08:07→21:05)
[2019-01-24] MEDS: HYDROGEN PEROXIDE 480 ML BOTTLE TP SCH ×2 (08:08→21:23)
[2019-01-24] MEDS: PROSOURCE / PROSTAT (PYXIS) 30 ML UDC JT SCH ×2 (08:10→16:17)
[2019-01-24 09:47] VITALS: BP 102/59
--- NOTE | 2019-01-24 17:06 | NUR ---
RECEIVED PT STABLE ON MV, SETTINGS ARE AC 14 450@ 40% FIO2, ALARMS ARE ON AND AUDIBLE, VENT PLUG IN RED OUTLET, BACK UP TRACH AND AMBU BAG IS AT BEDSIDE, TRACH PATENT AND SECURED WILL CONTINUE TO MONITOR Addendum: 01/24/19 at 1706 by ALCIDES CARPENTER RT Amended: Links added.
[2019-01-24] MEDS: JEVITY 1.2 CAL 1,000 ML BOTTLE JT PRN (19:30)
[2019-01-24 20:10] VITALS: BP 111/70
[2019-01-24] MEDS: POLYETHYLENE GLYCOL 3350 17 GM POWD.PACK GT SCH (21:05)
[2019-01-24] MEDS: ENOXAPARIN SODIUM 40 MG/0.4 ML DISP.SYRIN SQ SCH (21:05)
[2019-01-25] MEDS: ALBUTEROL FS 2.5 MG/3 ML VIAL.NEB NEB SCH ×4 (01:34→19:55)
--- NOTE | 2019-01-25 05:27 | NUR ---
RT Patient remained on continuous vent support on noted vent settings.Breathing treatment was given ,vent alarms are set and audible. Airway patent and secured. Patient stable throughout the shift. Will continue to monitor. Addendum: 01/25/19 at 0528 by HARLEY MUNIZ RT Amended: Links added.
[2019-01-25] MEDS: ERYTHROMYCIN ETHYLSUCCINATE 200 MG/5 ML SUSPENSION GT SCH ×4 (06:11→23:39)
--- NOTE | 2019-01-25 08:39 | NUR ---
RT NOTE: REC'D TRACH PT ON [facility] VENT ON NOTED SETTINGS PER MD ORDERS. TRACH IS PATENT AND SECURED. TRACH CARE DONE. INTERIOR PLANT CARETAKER DONE. SX DONE PRN. VENT PLUGGED INTO RED OUTLET. ALARMS ON AND AUDIBLE. RAGHU LEIGH @ BEDSIDE. NO RESP DISTRESS NOTED AT THIS TIME. WILL CONT TO MONITOR PT. Addendum: 01/25/19 at 0839 by KYM DUEÑAS RT Amended: Links added.
[2019-01-25] MEDS: HYDROGEN PEROXIDE 480 ML BOTTLE TP SCH ×2 (09:00→21:05)
[2019-01-25] MEDS: LEVETIRACETAM SOL (5 ML) 100 MG/ML UDC GT SCH ×2 (09:56→21:43)
[2019-01-25] MEDS: Z GUARD REMEDY 4 OZ OINT TP SCH ×2 (09:56→21:44)
[2019-01-25] MEDS: VITAMINS A AND D 56.7 GM TUBE TP SCH ×2 (09:56→21:44)
[2019-01-25] MEDS: POLYVINYL ALCOHOL 15 ML BOTTLE EACHEYE SCH ×4 (09:56→21:43)
[2019-01-25] MEDS: FAMOTIDINE (20 MG) 20 MG TABLET GT SCH ×2 (09:56→21:43)
[2019-01-25] MEDS: PROSOURCE / PROSTAT (PYXIS) 30 ML UDC JT SCH ×2 (09:56→17:19)
[2019-01-25 12:24] VITALS: BP 115/50
[2019-01-25] MEDS: JEVITY 1.2 CAL 1,000 ML BOTTLE JT PRN (17:19)
[2019-01-25 20:11] VITALS: BP 116/77
[2019-01-25] MEDS: POLYETHYLENE GLYCOL 3350 17 GM POWD.PACK GT SCH (21:44)
[2019-01-25] MEDS: ENOXAPARIN SODIUM 40 MG/0.4 ML DISP.SYRIN SQ SCH (21:44)
[2019-01-26] MEDS: ALBUTEROL FS 2.5 MG/3 ML VIAL.NEB NEB SCH ×4 (01:42→19:42)
[2019-01-26] MEDS: ERYTHROMYCIN ETHYLSUCCINATE 200 MG/5 ML SUSPENSION GT SCH ×3 (05:53→17:32)
[2019-01-26 07:42] VITALS: BP 109/65
--- NOTE | 2019-01-26 07:50 | NUR ---
RT Pt received trached on mechanical ventilation with noted settings. Pt is awake and alert. Vent is plugged into red outlet. No SOB or respiratory distress noted. Addendum: 01/26/19 at 1646 by MONIQUE SEWELL RT Amended: Links added.
[2019-01-26] MEDS: HYDROGEN PEROXIDE 480 ML BOTTLE TP SCH ×2 (09:00→21:41)
[2019-01-26] MEDS: LEVETIRACETAM SOL (5 ML) 100 MG/ML UDC GT SCH ×2 (09:35→21:12)
[2019-01-26] MEDS: PROSOURCE / PROSTAT (PYXIS) 30 ML UDC JT SCH ×2 (09:35→17:32)
[2019-01-26] MEDS: FAMOTIDINE (20 MG) 20 MG TABLET GT SCH ×2 (09:35→21:12)
[2019-01-26] MEDS: POLYVINYL ALCOHOL 15 ML BOTTLE EACHEYE SCH ×4 (09:35→21:11)
[2019-01-26] MEDS: VITAMINS A AND D 56.7 GM TUBE TP SCH ×2 (09:36→21:13)
[2019-01-26] MEDS: Z GUARD REMEDY 4 OZ OINT TP SCH ×2 (09:36→21:13)
[2019-01-26] MEDS: JEVITY 1.2 CAL 1,000 ML BOTTLE JT PRN (17:32)
[2019-01-26 20:13] VITALS: BP 106/67
[2019-01-26] MEDS: ENOXAPARIN SODIUM 40 MG/0.4 ML DISP.SYRIN SQ SCH (21:13)
[2019-01-26] MEDS: POLYETHYLENE GLYCOL 3350 17 GM POWD.PACK GT SCH (21:14)
--- NOTE | 2019-01-26 21:48 | NUR ---
RT NOTE Pt rec'd trached on [facility] vent on AC mode. No resp distress or sob noted. Trach is patent and secured. Sx'd for thick mod amt of pale yellow secretions. Alarms are set and audible. Vent plugged into red outlet. Ambu bag bedside. Will continue to monitor. Addendum: 01/26/19 at 2149 by STELLA DALAL RT Amended: Links added.
[2019-01-27] MEDS: ERYTHROMYCIN ETHYLSUCCINATE 200 MG/5 ML SUSPENSION GT SCH ×5 (00:36→23:19)
[2019-01-27] MEDS: ALBUTEROL FS 2.5 MG/3 ML VIAL.NEB NEB SCH ×4 (02:09→19:57)
[2019-01-27 07:52] VITALS: BP 116/69
[2019-01-27] MEDS: HYDROGEN PEROXIDE 480 ML BOTTLE TP SCH ×2 (09:00→21:00)
[2019-01-27] MEDS: LEVETIRACETAM SOL (5 ML) 100 MG/ML UDC GT SCH ×2 (09:50→20:09)
[2019-01-27] MEDS: PROSOURCE / PROSTAT (PYXIS) 30 ML UDC JT SCH ×2 (09:50→17:23)
[2019-01-27] MEDS: VITAMINS A AND D 56.7 GM TUBE TP SCH ×2 (09:50→20:10)
[2019-01-27] MEDS: Z GUARD REMEDY 4 OZ OINT TP SCH ×2 (09:50→20:10)
[2019-01-27] MEDS: POLYVINYL ALCOHOL 15 ML BOTTLE EACHEYE SCH ×4 (09:50→20:09)
[2019-01-27] MEDS: FAMOTIDINE (20 MG) 20 MG TABLET GT SCH ×2 (09:50→20:09)
[2019-01-27] MEDS: JEVITY 1.2 CAL 1,000 ML BOTTLE JT PRN (17:57)
[2019-01-27 20:07] VITALS: BP 118/87
[2019-01-27] MEDS: ENOXAPARIN SODIUM 40 MG/0.4 ML DISP.SYRIN SQ SCH (20:10)
[2019-01-27] MEDS: POLYETHYLENE GLYCOL 3350 17 GM POWD.PACK GT SCH (22:07)
[2019-01-28] MEDS: ALBUTEROL FS 2.5 MG/3 ML VIAL.NEB NEB SCH ×4 (02:18→20:01)
--- NOTE | 2019-01-28 03:59 | NUR ---
RT NOTE Pt rec'd trached on [facility] vent on AC mode. No resp distress or sob noted. Trach is patent and secured. Sx'd for thick mod amt of pale yellow secretions. Alarms are set and audible. Vent plugged into red outlet. Ambu bag bedside. Will continue to monitor. Addendum: 01/28/19 at 0400 by STELLA DALAL RT Amended: Links added.
[2019-01-28] MEDS: ERYTHROMYCIN ETHYLSUCCINATE 200 MG/5 ML SUSPENSION GT SCH ×4 (05:04→23:59)
[2019-01-28] MEDS: JEVITY 1.2 CAL 1,000 ML BOTTLE JT PRN (05:04)
[2019-01-28 07:28] VITALS: BP 119/74
[2019-01-28] MEDS: HYDROGEN PEROXIDE 480 ML BOTTLE TP SCH ×2 (09:21→20:01)
--- NOTE | 2019-01-28 09:24 | NUR ---
RT NOTE: REC'D TRACH PT ON [facility] VENT ON NOTED SETTINGS PER MD ORDERS. TRACH IS PATENT AND SECURED. TRACH CARE DONE. ASP WEB DEVELOPER DONE. SX DONE PRN. VENT PLUGGED INTO RED OUTLET. ALARMS ON AND AUDIBLE. RAGHU LEIGH @ BEDSIDE. NO RESP DISTRESS NOTED AT THIS TIME. WILL CONT TO MONITOR PT. Addendum: 01/28/19 at 0925 by KYM DUEÑAS RT Amended: Links added.
[2019-01-28] MEDS: Z GUARD REMEDY 4 OZ OINT TP SCH ×2 (09:39→20:14)
[2019-01-28] MEDS: LEVETIRACETAM SOL (5 ML) 100 MG/ML UDC GT SCH ×2 (09:39→20:12)
[2019-01-28] MEDS: POLYVINYL ALCOHOL 15 ML BOTTLE EACHEYE SCH ×4 (09:39→20:12)
[2019-01-28] MEDS: PROSOURCE / PROSTAT (PYXIS) 30 ML UDC JT SCH ×2 (09:39→17:33)
[2019-01-28] MEDS: FAMOTIDINE (20 MG) 20 MG TABLET GT SCH ×2 (09:39→20:13)
[2019-01-28] MEDS: VITAMINS A AND D 56.7 GM TUBE TP SCH ×2 (09:39→20:14)
--- NOTE | 2019-01-28 20:02 | NUR ---
RT NOTE: RECEIVED TRACH PT ON [facility] VENT ON NOTED SETTINGS PER MD ORDERS. TRACH IS PATENT AND SECURED. TRACH CARE DONE. STUD SETTER DONE. Q6 BREATHING TX GIVEN WITH NO ADVERSE REACTION NOTED. SX DONE PRN. VENT PLUGGED INTO RED OUTLET. ALARMS ON AND AUDIBLE. ELBERTU BAG @ BEDSIDE. NO RESP DISTRESS AT THIS TIME. WILL CONT TO MONITOR PT. Addendum: 01/29/19 at 0309 by CIRILO LOZOYA RT Amended: Links added.
[2019-01-28] MEDS: ENOXAPARIN SODIUM 40 MG/0.4 ML DISP.SYRIN SQ SCH (20:13)
[2019-01-28 20:30] VITALS: BP 110/69
[2019-01-28] MEDS: POLYETHYLENE GLYCOL 3350 17 GM POWD.PACK GT SCH (21:32)
[2019-01-29] MEDS: ALBUTEROL FS 2.5 MG/3 ML VIAL.NEB NEB SCH ×4 (02:07→20:00)
[2019-01-29] MEDS: JEVITY 1.2 CAL 1,000 ML BOTTLE JT PRN (03:52)
[2019-01-29] MEDS: ERYTHROMYCIN ETHYLSUCCINATE 200 MG/5 ML SUSPENSION GT SCH ×4 (05:17→23:31)
[2019-01-29 08:00] VITALS: BP 127/78
[2019-01-29] MEDS: PROSOURCE / PROSTAT (PYXIS) 30 ML UDC JT SCH ×2 (08:09→17:00)
[2019-01-29] MEDS: POLYVINYL ALCOHOL 15 ML BOTTLE EACHEYE SCH ×4 (08:09→20:07)
[2019-01-29] MEDS: FAMOTIDINE (20 MG) 20 MG TABLET GT SCH ×2 (08:09→20:07)
[2019-01-29] MEDS: LEVETIRACETAM SOL (5 ML) 100 MG/ML UDC GT SCH ×2 (08:09→20:07)
[2019-01-29] MEDS: VITAMINS A AND D 56.7 GM TUBE TP SCH ×2 (08:10→20:09)
[2019-01-29] MEDS: Z GUARD REMEDY 4 OZ OINT TP SCH ×2 (08:10→20:08)
[2019-01-29] MEDS: HYDROGEN PEROXIDE 480 ML BOTTLE TP SCH ×2 (08:18→21:00)
--- NOTE | 2019-01-29 09:09 | NUR ---
RT NOTE: REC'D TRACH PT ON [facility] VENT ON NOTED SETTINGS PER MD ORDERS. TRACH IS PATENT AND SECURED. TRACH CARE DONE. OIL WELL LOGGING ENGINEER DONE. SX DONE PRN. VENT PLUGGED INTO RED OUTLET. ALARMS ON AND AUDIBLE. RAGHU LEIGH @ BEDSIDE. NO RESP DISTRESS NOTED AT THIS TIME. WILL CONT TO MONITOR PT. Addendum: 01/29/19 at 0910 by KYM DUEÑAS RT Amended: Links added.
--- NOTE | 2019-01-29 12:24 | NUR ---
Family was not able to attend January Family Support Group today held from 11 am-12 noon. Family will be invited and encouraged to attend next month's Family Support Group.
--- NOTE | 2019-01-29 20:01 | NUR ---
RT NOTE PATIENT RECEIVED TRACH'D IN STABLE CONDITION ON MECHANICAL VENT. PATIENT IS TOLERATING CURRENT ORDERED VENT SETTINGS. NO SIGNS OF RESPIRATORY DISTRESS NOTED. ALARMS ARE SET AND AUDIBLE. MECHANICAL VENT IS PLUGGED INTO RED OUTLET. EMERGENCY EQUIPMENT IS AT PATIENT BEDSIDE. WILL CONTINUE TO MONITOR. Addendum: 01/29/19 at 2046 by CHONG JUSTIN RT Amended: Links added.
[2019-01-29 20:02] VITALS: BP 127/72
[2019-01-29] MEDS: ENOXAPARIN SODIUM 40 MG/0.4 ML DISP.SYRIN SQ SCH (20:08)
[2019-01-29] MEDS: POLYETHYLENE GLYCOL 3350 17 GM POWD.PACK GT SCH (22:06)
[2019-01-30] MEDS: ALBUTEROL FS 2.5 MG/3 ML VIAL.NEB NEB SCH ×4 (01:47→19:57)
[2019-01-30] MEDS: ERYTHROMYCIN ETHYLSUCCINATE 200 MG/5 ML SUSPENSION GT SCH ×3 (05:20→17:18)
[2019-01-30 08:05] VITALS: BP 116/73
[2019-01-30] MEDS: Z GUARD REMEDY 4 OZ OINT TP SCH ×2 (08:49→21:00)
[2019-01-30] MEDS: FAMOTIDINE (20 MG) 20 MG TABLET GT SCH ×2 (08:49→21:00)
[2019-01-30] MEDS: VITAMINS A AND D 56.7 GM TUBE TP SCH ×2 (08:49→21:00)
[2019-01-30] MEDS: LEVETIRACETAM SOL (5 ML) 100 MG/ML UDC GT SCH ×2 (08:49→21:00)
[2019-01-30] MEDS: POLYVINYL ALCOHOL 15 ML BOTTLE EACHEYE SCH ×4 (08:49→21:00)
[2019-01-30] MEDS: PROSOURCE / PROSTAT (PYXIS) 30 ML UDC JT SCH ×2 (08:49→17:18)
--- NOTE | 2019-01-30 08:54 | NUR ---
RT NOTE: REC'D TRACH PT ON [facility] VENT ON NOTED SETTINGS PER MD ORDERS. TRACH IS PATENT AND SECURED. TRACH CARE DONE. NOVELTY TWISTER OPERATOR DONE. SX DONE PRN. VENT PLUGGED INTO RED OUTLET. ALARMS ON AND AUDIBLE. RAGHU LEIGH @ BEDSIDE. NO RESP DISTRESS NOTED AT THIS TIME. WILL CONT TO MONITOR PT. Addendum: 01/30/19 at 0854 by KYM DUEÑAS RT Amended: Links added.
--- NOTE | 2019-01-30 08:58 | NUR ---
RT NOTE: REC'D TRACH PT [facility] V[facility] ON NOTED SETTINGS PER MD ORDERS. TRACH IS PATENT AND SECURED. TRACH CARE DONE. COURTROOM REPORTER DONE. SX DONE PRN. VENT PLUGGED INTO RED OUTLET. ALARMS ON AND AUDIBLE. AMBU BAG @ BEDSIDE. NO RESP DISTRESS NOTED AT THIS TIME. WILL CONT TO MONITOR PT.
[2019-01-30] MEDS: HYDROGEN PEROXIDE 480 ML BOTTLE TP SCH ×2 (09:05→21:21)
[2019-01-30] MEDS: JEVITY 1.2 CAL 1,000 ML BOTTLE JT PRN (12:29)
--- NOTE | 2019-01-30 19:57 | NUR ---
RT NOTE PATIENT RECEIVED TRACH'D ON MECHANICAL VENT IN STABLE CONDITION. PATIENT IS TOLERATING CURRENT ORDERED VENT SETTINGS WELL. NO SIGNS OF RESPIRATORY DISTRESS NOTED. TRACH IS PATENT AND SECURE. ALARMS ARE SET AND AUDIBLE. MECHANICAL VENT IS PLUGGED INTO RED OUTLET. EMERGENCY EQUIPMENT IS AT PATIENT BEDSIDE, WILL CONTINUE TO MONITOR. Addendum: 01/30/19 at 2030 by CHONG JUSTIN RT Amended: Links added.
[2019-01-30 20:00] VITALS: BP 109/62
[2019-01-30 20:01] VITALS: BP 109/62
[2019-01-30] MEDS: ENOXAPARIN SODIUM 40 MG/0.4 ML DISP.SYRIN SQ SCH (21:00)
[2019-01-30] MEDS: POLYETHYLENE GLYCOL 3350 17 GM POWD.PACK GT SCH (22:01)
[2019-01-31] MEDS: ERYTHROMYCIN ETHYLSUCCINATE 200 MG/5 ML SUSPENSION GT SCH ×5 (00:20→23:56)
[2019-01-31] MEDS: ALBUTEROL FS 2.5 MG/3 ML VIAL.NEB NEB SCH ×4 (01:41→20:20)
--- NOTE | 2019-01-31 08:05 | NUR ---
RT Pt received trach'd and on [facility] vent w charted settings. Vent is plugged into the red outlet. Alarms are set and audible. Bmv at [facility]. Pt is stable. No respiratory distress or sob noted. Will continue to monitor. Addendum: 01/31/19 at 1212 by HUGH LICONA RT Amended: Links added.
[2019-01-31] MEDS: HYDROGEN PEROXIDE 480 ML BOTTLE TP SCH ×2 (08:45→21:00)
[2019-01-31] MEDS: VITAMINS A AND D 56.7 GM TUBE TP SCH ×2 (09:12→21:09)
[2019-01-31] MEDS: PROSOURCE / PROSTAT (PYXIS) 30 ML UDC JT SCH ×2 (09:12→17:36)
[2019-01-31] MEDS: FAMOTIDINE (20 MG) 20 MG TABLET GT SCH ×2 (09:12→21:08)
[2019-01-31] MEDS: Z GUARD REMEDY 4 OZ OINT TP SCH ×2 (09:12→21:09)
[2019-01-31] MEDS: LEVETIRACETAM SOL (5 ML) 100 MG/ML UDC GT SCH ×2 (09:12→21:08)
[2019-01-31] MEDS: POLYVINYL ALCOHOL 15 ML BOTTLE EACHEYE SCH ×4 (09:12→21:08)
[2019-01-31] MEDS: JEVITY 1.2 CAL 1,000 ML BOTTLE JT PRN (13:50)
[2019-01-31 20:28] VITALS: BP 102/63
[2019-01-31] MEDS: ENOXAPARIN SODIUM 40 MG/0.4 ML DISP.SYRIN SQ SCH (21:09)
[2019-01-31] MEDS: POLYETHYLENE GLYCOL 3350 17 GM POWD.PACK GT SCH (21:09)
[2019-02-01] MEDS: ALBUTEROL FS 2.5 MG/3 ML VIAL.NEB NEB SCH ×5 (00:54→23:55)
--- NOTE | 2019-02-01 03:27 | NUR ---
RT Pt received trach'd and on [facility] vent w charted settings. Vent is plugged into the red outlet. Alarms are set and audible. Bmv at [facility]. Pt is stable. No respiratory distress or sob noted t/o shift. Will continue to monitor. Addendum: 02/01/19 at 0353 by HUGH LICONA RT Amended: Links added.
[2019-02-01] MEDS: ERYTHROMYCIN ETHYLSUCCINATE 200 MG/5 ML SUSPENSION GT SCH ×4 (05:15→23:32)
[2019-02-01 08:03] VITALS: BP 103/51
[2019-02-01] MEDS: HYDROGEN PEROXIDE 480 ML BOTTLE TP SCH ×2 (08:03→21:26)
[2019-02-01] MEDS: PROSOURCE / PROSTAT (PYXIS) 30 ML UDC JT SCH ×2 (09:02→17:45)
[2019-02-01] MEDS: Z GUARD REMEDY 4 OZ OINT TP SCH ×2 (09:02→21:26)
[2019-02-01] MEDS: POLYVINYL ALCOHOL 15 ML BOTTLE EACHEYE SCH ×4 (09:02→21:23)
[2019-02-01] MEDS: VITAMINS A AND D 56.7 GM TUBE TP SCH ×2 (09:02→21:26)
[2019-02-01] MEDS: LEVETIRACETAM SOL (5 ML) 100 MG/ML UDC GT SCH ×2 (09:02→21:23)
[2019-02-01] MEDS: FAMOTIDINE (20 MG) 20 MG TABLET GT SCH ×2 (09:02→21:23)
--- NOTE | 2019-02-01 09:21 | NUR ---
RT NOTE: REC'D TRACH PT ON [facility] VENT ON NOTED SETTINGS PER MD ORDERS. TRACH IS PATENT AND SECURED. TRACH CARE DONE. COB SAWYER DONE. SX DONE PRN. VENT PLUGGED INTO RED OUTLET. ALARMS ON AND AUDIBLE. RAGHU LEIGH @ BEDSIDE. NO RESP DISTRESS NOTED AT THIS TIME. WILL CONT TO MONITOR PT. Addendum: 02/01/19 at 0922 by KYM DUEÑAS RT Amended: Links added.
[2019-02-01] MEDS: JEVITY 1.2 CAL 1,000 ML BOTTLE JT PRN (18:17)
[2019-02-01 20:00] VITALS: BP 113/69
[2019-02-01] MEDS: POLYETHYLENE GLYCOL 3350 17 GM POWD.PACK GT SCH (21:26)
[2019-02-01] MEDS: ENOXAPARIN SODIUM 40 MG/0.4 ML DISP.SYRIN SQ SCH (21:26)
[2019-02-02] MEDS: ERYTHROMYCIN ETHYLSUCCINATE 200 MG/5 ML SUSPENSION GT SCH ×3 (05:02→18:10)
[2019-02-02 07:47] VITALS: BP 109/57
[2019-02-02] MEDS: ALBUTEROL FS 2.5 MG/3 ML VIAL.NEB NEB SCH ×3 (07:53→19:54)
[2019-02-02] MEDS: LEVETIRACETAM SOL (5 ML) 100 MG/ML UDC GT SCH ×2 (09:00→21:26)
[2019-02-02] MEDS: PROSOURCE / PROSTAT (PYXIS) 30 ML UDC JT SCH ×2 (09:00→17:14)
[2019-02-02] MEDS: VITAMINS A AND D 56.7 GM TUBE TP SCH ×2 (09:00→21:27)
[2019-02-02] MEDS: POLYVINYL ALCOHOL 15 ML BOTTLE EACHEYE SCH ×4 (09:00→21:26)
[2019-02-02] MEDS: HYDROGEN PEROXIDE 480 ML BOTTLE TP SCH ×2 (09:00→21:13)
[2019-02-02] MEDS: FAMOTIDINE (20 MG) 20 MG TABLET GT SCH ×2 (09:00→21:26)
[2019-02-02] MEDS: Z GUARD REMEDY 4 OZ OINT TP SCH ×2 (09:00→21:27)
[2019-02-02] MEDS: JEVITY 1.2 CAL 1,000 ML BOTTLE JT PRN (16:38)
[2019-02-02 20:29] VITALS: BP 102/72
[2019-02-02] MEDS: ENOXAPARIN SODIUM 40 MG/0.4 ML DISP.SYRIN SQ SCH (21:27)
[2019-02-02] MEDS: POLYETHYLENE GLYCOL 3350 17 GM POWD.PACK GT SCH (21:27)
[2019-02-03] MEDS: ERYTHROMYCIN ETHYLSUCCINATE 200 MG/5 ML SUSPENSION GT SCH ×5 (00:02→23:12)
[2019-02-03] MEDS: ALBUTEROL FS 2.5 MG/3 ML VIAL.NEB NEB SCH ×4 (01:40→20:02)
[2019-02-03 07:35] VITALS: BP 105/65
[2019-02-03] MEDS: HYDROGEN PEROXIDE 480 ML BOTTLE TP SCH ×2 (08:10→20:02)
[2019-02-03] MEDS: FAMOTIDINE (20 MG) 20 MG TABLET GT SCH ×2 (09:00→21:24)
[2019-02-03] MEDS: VITAMINS A AND D 56.7 GM TUBE TP SCH ×2 (09:00→21:24)
[2019-02-03] MEDS: LEVETIRACETAM SOL (5 ML) 100 MG/ML UDC GT SCH ×2 (09:00→21:24)
[2019-02-03] MEDS: POLYVINYL ALCOHOL 15 ML BOTTLE EACHEYE SCH ×4 (09:00→21:24)
[2019-02-03] MEDS: PROSOURCE / PROSTAT (PYXIS) 30 ML UDC JT SCH ×2 (09:00→16:40)
[2019-02-03] MEDS: Z GUARD REMEDY 4 OZ OINT TP SCH ×2 (09:00→21:24)
[2019-02-03] MEDS: JEVITY 1.2 CAL 1,000 ML BOTTLE JT PRN (15:37)
[2019-02-03 20:51] VITALS: BP 104/64
[2019-02-03] MEDS: ENOXAPARIN SODIUM 40 MG/0.4 ML DISP.SYRIN SQ SCH (21:24)
[2019-02-03] MEDS: POLYETHYLENE GLYCOL 3350 17 GM POWD.PACK GT SCH (21:24)
[2019-02-04] MEDS: ALBUTEROL FS 2.5 MG/3 ML VIAL.NEB NEB SCH ×4 (01:54→19:46)
[2019-02-04] MEDS: ERYTHROMYCIN ETHYLSUCCINATE 200 MG/5 ML SUSPENSION GT SCH ×3 (05:53→18:41)
[2019-02-04 07:59] VITALS: BP 115/64
[2019-02-04] MEDS: HYDROGEN PEROXIDE 480 ML BOTTLE TP SCH ×2 (09:24→21:00)
[2019-02-04] MEDS: PROSOURCE / PROSTAT (PYXIS) 30 ML UDC JT SCH ×2 (09:28→16:41)
[2019-02-04] MEDS: Z GUARD REMEDY 4 OZ OINT TP SCH ×2 (09:28→21:35)
[2019-02-04] MEDS: POLYVINYL ALCOHOL 15 ML BOTTLE EACHEYE SCH ×4 (09:28→21:35)
[2019-02-04] MEDS: LEVETIRACETAM SOL (5 ML) 100 MG/ML UDC GT SCH ×2 (09:28→21:35)
[2019-02-04] MEDS: FAMOTIDINE (20 MG) 20 MG TABLET GT SCH ×2 (09:28→21:35)
[2019-02-04] MEDS: VITAMINS A AND D 56.7 GM TUBE TP SCH ×2 (09:28→21:35)
--- NOTE | 2019-02-04 10:27 | NUR ---
RT NOTE: REC'D TRACH PT ON [facility] VENT ON NOTED SETTINGS PER MD ORDERS. TRACH IS PATENT AND SECURED. TRACH CARE DONE. PRACTICE PROFESSIONAL DONE. SX DONE PRN. VENT PLUGGED INTO RED OUTLET. ALARMS ON AND AUDIBLE. RAGHU LEIGH @ BEDSIDE. NO RESP DISTRESS NOTED AT THIS TIME. WILL CONT TO MONITOR PT. Addendum: 02/04/19 at 1028 by KYM DUEÑAS RT Amended: Links added.
[2019-02-04] MEDS: JEVITY 1.2 CAL 1,000 ML BOTTLE JT PRN (15:15)
[2019-02-04 20:10] VITALS: BP 95/56
[2019-02-04] MEDS: ENOXAPARIN SODIUM 40 MG/0.4 ML DISP.SYRIN SQ SCH (21:35)
[2019-02-04] MEDS: POLYETHYLENE GLYCOL 3350 17 GM POWD.PACK GT SCH (21:35)
[2019-02-05] MEDS: ERYTHROMYCIN ETHYLSUCCINATE 200 MG/5 ML SUSPENSION GT SCH ×5 (00:24→23:48)
[2019-02-05] MEDS: ALBUTEROL FS 2.5 MG/3 ML VIAL.NEB NEB SCH ×4 (02:10→19:54)
[2019-02-05 07:42] VITALS: BP 120/74
[2019-02-05] MEDS: FAMOTIDINE (20 MG) 20 MG TABLET GT SCH ×2 (09:00→21:37)
[2019-02-05] MEDS: VITAMINS A AND D 56.7 GM TUBE TP SCH ×2 (09:00→21:38)
[2019-02-05] MEDS: PROSOURCE / PROSTAT (PYXIS) 30 ML UDC JT SCH ×2 (09:00→17:07)
[2019-02-05] MEDS: POLYVINYL ALCOHOL 15 ML BOTTLE EACHEYE SCH ×4 (09:00→21:37)
[2019-02-05] MEDS: LEVETIRACETAM SOL (5 ML) 100 MG/ML UDC GT SCH ×2 (09:00→21:37)
[2019-02-05] MEDS: HYDROGEN PEROXIDE 480 ML BOTTLE TP SCH ×2 (09:00→19:54)
[2019-02-05] MEDS: Z GUARD REMEDY 4 OZ OINT TP SCH ×2 (09:00→21:38)
--- NOTE | 2019-02-05 15:30 | NUR ---
Seen and examined by Germaine Mike NP no new order given.
--- NOTE | 2019-02-05 19:55 | NUR ---
RT NOTE: RECEIVED TRACH PT ON [facility] VENT ON NOTED SETTINGS PER MD ORDERS. TRACH IS PATENT AND SECURED. TRACH CARE DONE. WILDLIFE CONTROL AGENT DONE. Q6 BREATHING TX GIVEN WITH NO ADVERSE REACTION NOTED. SX DONE PRN. VENT PLUGGED INTO RED OUTLET. ALARMS ON AND AUDIBLE. ELBERTU BAG @ BEDSIDE. NO RESP DISTRESS AT THIS TIME. WILL CONT TO MONITOR PT. Addendum: 02/06/19 at 0215 by CIRILO LOZOYA RT Amended: Links added.
[2019-02-05 20:25] VITALS: BP 97/67
[2019-02-05] MEDS: POLYETHYLENE GLYCOL 3350 17 GM POWD.PACK GT SCH (21:38)
[2019-02-05] MEDS: ENOXAPARIN SODIUM 40 MG/0.4 ML DISP.SYRIN SQ SCH (21:38)
[2019-02-06] MEDS: ALBUTEROL FS 2.5 MG/3 ML VIAL.NEB NEB SCH ×4 (01:35→19:55)
[2019-02-06] MEDS: ERYTHROMYCIN ETHYLSUCCINATE 200 MG/5 ML SUSPENSION GT SCH ×4 (05:14→23:21)
[2019-02-06 07:47] VITALS: BP 105/63
[2019-02-06] MEDS: HYDROGEN PEROXIDE 480 ML BOTTLE TP SCH ×2 (07:51→19:55)
[2019-02-06] MEDS: FAMOTIDINE (20 MG) 20 MG TABLET GT SCH ×2 (09:16→20:37)
[2019-02-06] MEDS: LEVETIRACETAM SOL (5 ML) 100 MG/ML UDC GT SCH ×2 (09:16→20:37)
[2019-02-06] MEDS: VITAMINS A AND D 56.7 GM TUBE TP SCH ×2 (09:16→20:38)
[2019-02-06] MEDS: Z GUARD REMEDY 4 OZ OINT TP SCH ×2 (09:16→20:38)
[2019-02-06] MEDS: POLYVINYL ALCOHOL 15 ML BOTTLE EACHEYE SCH ×4 (09:16→20:37)
[2019-02-06] MEDS: PROSOURCE / PROSTAT (PYXIS) 30 ML UDC JT SCH ×2 (09:16→17:00)
--- NOTE | 2019-02-06 17:05 | NUR ---
RT NOTE: RECEIVED TRACH PT ON ORDERED NOTED VENT SETTINGS. NO RESPIRATORY DISTRESS NOTED. TRACH CHECKED SECURE AND PATENT. SXD AND LAVAGE PT Q ROUND AND NEEDED. TXS GIVEN ORDERED WITH NO ADVERSE REACTIONS NOTED. TRACH CARE DONE. SPARE TRACH AND AMBU BAG @ BEDSIDE. ALARMS CHECKED AND AUDIBLE. VENT PLUGGED INTO RED OUTLET.
[2019-02-06] MEDS: JEVITY 1.2 CAL 1,000 ML BOTTLE JT PRN (18:45)
--- NOTE | 2019-02-06 19:30 | NUR ---
Seen by XAVI Mike no new orders.
[2019-02-06 20:11] VITALS: BP 100/64
[2019-02-06] MEDS: ENOXAPARIN SODIUM 40 MG/0.4 ML DISP.SYRIN SQ SCH (20:37)
[2019-02-06] MEDS: POLYETHYLENE GLYCOL 3350 17 GM POWD.PACK GT SCH (22:02)
[2019-02-07] MEDS: ALBUTEROL FS 2.5 MG/3 ML VIAL.NEB NEB SCH ×4 (02:03→19:52)
[2019-02-07] MEDS: ERYTHROMYCIN ETHYLSUCCINATE 200 MG/5 ML SUSPENSION GT SCH ×3 (05:26→17:08)
[2019-02-07 07:48] VITALS: BP 103/56
[2019-02-07] MEDS: HYDROGEN PEROXIDE 480 ML BOTTLE TP SCH ×2 (08:27→21:24)
[2019-02-07] MEDS: POLYVINYL ALCOHOL 15 ML BOTTLE EACHEYE SCH ×4 (09:00→21:31)
[2019-02-07] MEDS: FAMOTIDINE (20 MG) 20 MG TABLET GT SCH ×2 (09:00→21:31)
[2019-02-07] MEDS: Z GUARD REMEDY 4 OZ OINT TP SCH ×2 (09:00→21:31)
[2019-02-07] MEDS: PROSOURCE / PROSTAT (PYXIS) 30 ML UDC JT SCH ×2 (09:00→16:51)
[2019-02-07] MEDS: VITAMINS A AND D 56.7 GM TUBE TP SCH ×2 (09:00→21:31)
[2019-02-07] MEDS: LEVETIRACETAM SOL (5 ML) 100 MG/ML UDC GT SCH ×2 (09:00→21:31)
--- NOTE | 2019-02-07 11:21 | NUR ---
Family Invitation to Holiday Lunch-In and IDT: Activities Officer contacted the patients responsible constitution party/sister, Shireen Mitchell [phone] to invite her and Conservator, Asuncion Mitchell to attend the Interdisciplinary Plan of Care Conference taking place 02/14/19 from 12:30pm-1:30pm and the Family Holiday Lunch-In taking place 02/13/19 from 11:30pm-1:00pm. Call went to [employer] and SW left a message with above stated information and call back number.
--- NOTE | 2019-02-07 16:47 | NUR ---
RT NOTE PATIENT RECEIVED ON TRACH WITH MECHANICAL VENTILATOR WITH NOTED SETTINGS. TRACH IS PATENT AND SECURED. SPARE TRACH AND BVM IS AT BEDSIDE. VENTILATOR ALARMS ARE SET AND AUDIBLE AND PLUGGED TO RED OUTLET. PATIENT HAS EQUAL CHEST RISE WITH COARSE BILATERAL BREATH SOUNDS. SUCTION SMALL TO MODERATE THIN WHITE AND GREEN SECRETIONS TROUGH OUT THE DAY. NO SOB NOTE. Addendum: 02/07/19 at 1648 by HIMA VILLALOBOS RT Amended: Links added.
[2019-02-07] MEDS: JEVITY 1.2 CAL 1,000 ML BOTTLE JT PRN (17:08)
[2019-02-07] MEDS: ENOXAPARIN SODIUM 40 MG/0.4 ML DISP.SYRIN SQ SCH (21:31)
[2019-02-07] MEDS: POLYETHYLENE GLYCOL 3350 17 GM POWD.PACK GT SCH (21:32)
[2019-02-07 22:13] VITALS: BP 102/60
[2019-02-08] MEDS: ERYTHROMYCIN ETHYLSUCCINATE 200 MG/5 ML SUSPENSION GT SCH ×5 (00:21→23:25)
[2019-02-08] MEDS: JEVITY 1.2 CAL 1,000 ML BOTTLE JT PRN (00:22)
[2019-02-08] MEDS: ALBUTEROL FS 2.5 MG/3 ML VIAL.NEB NEB SCH ×4 (01:48→19:47)
[2019-02-08 07:41] VITALS: BP 94/57
[2019-02-08] MEDS: HYDROGEN PEROXIDE 480 ML BOTTLE TP SCH ×2 (07:56→21:04)
[2019-02-08] MEDS: LEVETIRACETAM SOL (5 ML) 100 MG/ML UDC GT SCH ×2 (08:43→21:49)
[2019-02-08] MEDS: FAMOTIDINE (20 MG) 20 MG TABLET GT SCH ×2 (08:43→21:49)
[2019-02-08] MEDS: POLYVINYL ALCOHOL 15 ML BOTTLE EACHEYE SCH ×4 (08:43→21:49)
[2019-02-08] MEDS: PROSOURCE / PROSTAT (PYXIS) 30 ML UDC JT SCH ×2 (08:44→17:37)
[2019-02-08] MEDS: VITAMINS A AND D 56.7 GM TUBE TP SCH ×2 (08:44→21:50)
[2019-02-08] MEDS: Z GUARD REMEDY 4 OZ OINT TP SCH ×2 (08:44→21:50)
--- NOTE | 2019-02-08 16:56 | NUR ---
RT NOTE PATIENT RECEIVED ON TRACH WITH MECHANICAL VENTILATOR. TRACH IS PATENT AND SECURED. VENTILATOR IS PLUGGED TO RED OUTLET. ALARMS ARE SET AND AUDIBLE. SPARE TRACH AND BVM IS AT BEDSIDE. PATIENT HAS EQUAL CHEST RISE WITH COARSE BILATERAL BREATH SOUNDS. SUCTION MODERATE AMOUNT OF THIN WHITE SECRETIONS TROUGH OUT THE DAY. NO SOB NOTED. Addendum: 02/08/19 at 1658 by HIMA VILLALOBOS RT Amended: Links added.
[2019-02-08 19:28] VITALS: BP 109/58
[2019-02-08] MEDS: POLYETHYLENE GLYCOL 3350 17 GM POWD.PACK GT SCH (21:50)
[2019-02-08] MEDS: ENOXAPARIN SODIUM 40 MG/0.4 ML DISP.SYRIN SQ SCH (21:50)
[2019-02-09] MEDS: ALBUTEROL FS 2.5 MG/3 ML VIAL.NEB NEB SCH ×4 (01:50→20:27)
[2019-02-09] MEDS: ERYTHROMYCIN ETHYLSUCCINATE 200 MG/5 ML SUSPENSION GT SCH ×3 (05:06→18:10)
[2019-02-09] MEDS: JEVITY 1.2 CAL 1,000 ML BOTTLE JT PRN (06:21)
[2019-02-09 07:24] VITALS: BP 111/58
[2019-02-09] MEDS: HYDROGEN PEROXIDE 480 ML BOTTLE TP SCH ×2 (08:16→20:28)
[2019-02-09] MEDS: LEVETIRACETAM SOL (5 ML) 100 MG/ML UDC GT SCH ×2 (09:00→21:16)
[2019-02-09] MEDS: PROSOURCE / PROSTAT (PYXIS) 30 ML UDC JT SCH ×2 (09:00→16:13)
[2019-02-09] MEDS: POLYVINYL ALCOHOL 15 ML BOTTLE EACHEYE SCH ×4 (09:00→21:16)
[2019-02-09] MEDS: Z GUARD REMEDY 4 OZ OINT TP SCH ×2 (09:00→21:17)
[2019-02-09] MEDS: FAMOTIDINE (20 MG) 20 MG TABLET GT SCH ×2 (09:00→21:16)
[2019-02-09] MEDS: VITAMINS A AND D 56.7 GM TUBE TP SCH ×2 (09:00→21:17)
--- NOTE | 2019-02-09 20:20 | NUR ---
RT PT RECEIVED ON VENT WITH CURRENT SETTINGS. TRACHED WITH PORTEX 7. NO RESPIRATORY DISTRESS. AMBU BAG AT HEAD OF BED. SPARE TRACH AT BED SIDE. VENT PLUGGED IN TO RED OUTLET. ALARMS ON AND AUDIBLE. HOB AT 30 DEGREES. WILL CONTINUE TO MONITOR. Addendum: 02/09/19 at 2342 by KEVIN HARPER RT Amended: Links added.
[2019-02-09 20:43] VITALS: BP 101/66
[2019-02-09] MEDS: ENOXAPARIN SODIUM 40 MG/0.4 ML DISP.SYRIN SQ SCH (21:16)
[2019-02-09] MEDS: POLYETHYLENE GLYCOL 3350 17 GM POWD.PACK GT SCH (21:17)
[2019-02-10] MEDS: ERYTHROMYCIN ETHYLSUCCINATE 200 MG/5 ML SUSPENSION GT SCH ×5 (00:06→23:35)
[2019-02-10] MEDS: ALBUTEROL FS 2.5 MG/3 ML VIAL.NEB NEB SCH ×4 (02:09→14:34)
[2019-02-10 07:42] VITALS: BP 95/61
[2019-02-10] MEDS: HYDROGEN PEROXIDE 480 ML BOTTLE TP SCH ×2 (08:23→21:00)
[2019-02-10] MEDS: FAMOTIDINE (20 MG) 20 MG TABLET GT SCH ×2 (09:00→20:15)
[2019-02-10] MEDS: POLYVINYL ALCOHOL 15 ML BOTTLE EACHEYE SCH ×4 (09:00→20:15)
[2019-02-10] MEDS: VITAMINS A AND D 56.7 GM TUBE TP SCH ×2 (09:00→20:18)
[2019-02-10] MEDS: LEVETIRACETAM SOL (5 ML) 100 MG/ML UDC GT SCH ×2 (09:00→20:15)
[2019-02-10] MEDS: Z GUARD REMEDY 4 OZ OINT TP SCH ×2 (09:00→20:18)
[2019-02-10] MEDS: PROSOURCE / PROSTAT (PYXIS) 30 ML UDC JT SCH ×2 (09:00→16:55)
[2019-02-10] MEDS: ENOXAPARIN SODIUM 40 MG/0.4 ML DISP.SYRIN SQ SCH (20:17)
[2019-02-10 20:33] VITALS: BP 96/60
[2019-02-10] MEDS: POLYETHYLENE GLYCOL 3350 17 GM POWD.PACK GT SCH (22:03)
[2019-02-11] MEDS: ALBUTEROL FS 2.5 MG/3 ML VIAL.NEB NEB SCH ×4 (01:25→19:50)
[2019-02-11] MEDS: FAMOTIDINE (20 MG) 20 MG TABLET GT SCH ×2 (08:47→21:16)
[2019-02-11] MEDS: PROSOURCE / PROSTAT (PYXIS) 30 ML UDC JT SCH ×2 (08:47→17:39)
[2019-02-11] MEDS: LEVETIRACETAM SOL (5 ML) 100 MG/ML UDC GT SCH ×2 (08:47→21:16)
[2019-02-11] MEDS: Z GUARD REMEDY 4 OZ OINT TP SCH ×2 (09:00→21:17)
[2019-02-11] MEDS: POLYVINYL ALCOHOL 15 ML BOTTLE EACHEYE SCH ×4 (09:00→21:16)
[2019-02-11] MEDS: VITAMINS A AND D 56.7 GM TUBE TP SCH ×2 (09:00→21:17)
[2019-02-11] MEDS: HYDROGEN PEROXIDE 480 ML BOTTLE TP SCH ×2 (09:00→21:00)
[2019-02-11 11:37] VITALS: BP 112/74
[2019-02-11] MEDS: ERYTHROMYCIN ETHYLSUCCINATE 200 MG/5 ML SUSPENSION GT SCH ×2 (12:21→17:39)
[2019-02-11 20:47] VITALS: BP 94/57
[2019-02-11] MEDS: ENOXAPARIN SODIUM 40 MG/0.4 ML DISP.SYRIN SQ SCH (21:17)
[2019-02-11] MEDS: POLYETHYLENE GLYCOL 3350 17 GM POWD.PACK GT SCH (21:17)
[2019-02-12] MEDS: ERYTHROMYCIN ETHYLSUCCINATE 200 MG/5 ML SUSPENSION GT SCH ×5 (00:10→23:23)
[2019-02-12] MEDS: ALBUTEROL FS 2.5 MG/3 ML VIAL.NEB NEB SCH ×4 (01:26→20:08)
[2019-02-12 08:25] VITALS: BP 102/67
[2019-02-12] MEDS: PROSOURCE / PROSTAT (PYXIS) 30 ML UDC JT SCH ×2 (08:28→16:47)
[2019-02-12] MEDS: FAMOTIDINE (20 MG) 20 MG TABLET GT SCH ×2 (08:28→21:20)
[2019-02-12] MEDS: LEVETIRACETAM SOL (5 ML) 100 MG/ML UDC GT SCH ×2 (08:28→21:20)
[2019-02-12] MEDS: POLYVINYL ALCOHOL 15 ML BOTTLE EACHEYE SCH ×4 (08:28→21:20)
[2019-02-12] MEDS: Z GUARD REMEDY 4 OZ OINT TP SCH ×2 (09:00→21:20)
[2019-02-12] MEDS: HYDROGEN PEROXIDE 480 ML BOTTLE TP SCH ×2 (09:00→20:08)
[2019-02-12] MEDS: VITAMINS A AND D 56.7 GM TUBE TP SCH ×2 (09:00→21:20)
--- NOTE | 2019-02-12 09:15 | NUR ---
RT NOTE: REC'D TRACH PT ON [facility] VENT ON NOTED SETTINGS PER MD ORDERS. TRACH IS PATENT AND SECURED. TRACH CARE DONE. GENERATOR OPERATOR STRAIGHT BEVEL GEAR DONE. SX DONE PRN. VENT PLUGGED INTO RED OUTLET. ALARMS ON AND AUDIBLE. RAGHU LEIGH @ BEDSIDE. NO RESP DISTRESS NOTED AT THIS TIME. WILL CONT TO MONITOR PT. Addendum: 02/12/19 at 0915 by KYM DUEÑAS RT Amended: Links added.
[2019-02-12] MEDS: JEVITY 1.2 CAL 1,000 ML BOTTLE JT PRN (13:02)
[2019-02-12 20:07] VITALS: BP 98/64
--- NOTE | 2019-02-12 20:08 | NUR ---
RT NOTE: RECEIVED TRACH PT ON [facility] VENT ON NOTED SETTINGS PER MD ORDERS. TRACH IS PATENT AND SECURED. TRACH CARE DONE. TAKE AWAY MAN DONE. Q6 BREATHING TX GIVEN WITH NO ADVERSE REACTION NOTED. SX DONE PRN. VENT PLUGGED INTO RED OUTLET. ALARMS ON AND AUDIBLE. RAGHU BAG @ BEDSIDE. NO RESP DISTRESS AT THIS TIME. WILL CONT TO MONITOR PT. Addendum: 02/12/19 at 2018 by CIRILO LOZOYA RT Amended: Links added.
[2019-02-12] MEDS: POLYETHYLENE GLYCOL 3350 17 GM POWD.PACK GT SCH (21:20)
[2019-02-12] MEDS: ENOXAPARIN SODIUM 40 MG/0.4 ML DISP.SYRIN SQ SCH (21:20)
[2019-02-13] MEDS: ALBUTEROL FS 2.5 MG/3 ML VIAL.NEB NEB SCH ×4 (01:48→20:03)
[2019-02-13] MEDS: ERYTHROMYCIN ETHYLSUCCINATE 200 MG/5 ML SUSPENSION GT SCH ×4 (05:14→23:33)
[2019-02-13 08:00] VITALS: BP 98/58
[2019-02-13] MEDS: HYDROGEN PEROXIDE 480 ML BOTTLE TP SCH ×2 (08:14→20:55)
[2019-02-13] MEDS: Z GUARD REMEDY 4 OZ OINT TP SCH ×2 (08:25→21:00)
[2019-02-13] MEDS: FAMOTIDINE (20 MG) 20 MG TABLET GT SCH ×2 (08:25→21:00)
[2019-02-13] MEDS: PROSOURCE / PROSTAT (PYXIS) 30 ML UDC JT SCH ×2 (08:25→17:15)
[2019-02-13] MEDS: VITAMINS A AND D 56.7 GM TUBE TP SCH ×2 (08:25→21:00)
[2019-02-13] MEDS: LEVETIRACETAM SOL (5 ML) 100 MG/ML UDC GT SCH ×2 (08:25→21:00)
[2019-02-13] MEDS: POLYVINYL ALCOHOL 15 ML BOTTLE EACHEYE SCH ×4 (08:25→21:00)
[2019-02-13] MEDS: JEVITY 1.2 CAL 1,000 ML BOTTLE JT PRN (18:20)
[2019-02-13 20:09] VITALS: BP 98/65
--- NOTE | 2019-02-13 20:56 | NUR ---
RT NOTE PT RECEIVED TRACHED ON MECHANICAL VENTILATION. AMBU BAG/BACK UP TRACH @ BEDSIDE. TX GIVEN, NO ADVERSE REACTIONS NOTED. SX DONE, TRACH SECURED AND PATENT. ALARMS ON AND AUDIBLE. VENT PLUGGED TO RED OUTLET. NO SOB NOTED. CONT. PULSE OX CONNECTED. Addendum: 02/13/19 at 2056 by MILAN CARRASCO RT Amended: Links added.
[2019-02-13] MEDS: ENOXAPARIN SODIUM 40 MG/0.4 ML DISP.SYRIN SQ SCH (21:00)
[2019-02-13] MEDS: POLYETHYLENE GLYCOL 3350 17 GM POWD.PACK GT SCH (22:08)
[2019-02-14] MEDS: ALBUTEROL FS 2.5 MG/3 ML VIAL.NEB NEB SCH ×4 (02:22→20:11)
[2019-02-14] MEDS: ERYTHROMYCIN ETHYLSUCCINATE 200 MG/5 ML SUSPENSION GT SCH ×3 (05:18→18:32)
[2019-02-14 07:28] VITALS: BP 100/61
[2019-02-14] MEDS: FAMOTIDINE (20 MG) 20 MG TABLET GT SCH ×2 (08:40→20:38)
[2019-02-14] MEDS: LEVETIRACETAM SOL (5 ML) 100 MG/ML UDC GT SCH ×2 (08:40→20:38)
[2019-02-14] MEDS: POLYVINYL ALCOHOL 15 ML BOTTLE EACHEYE SCH ×4 (08:40→20:38)
[2019-02-14] MEDS: PROSOURCE / PROSTAT (PYXIS) 30 ML UDC JT SCH ×2 (08:40→17:00)
[2019-02-14] MEDS: Z GUARD REMEDY 4 OZ OINT TP SCH ×2 (09:00→20:38)
[2019-02-14] MEDS: HYDROGEN PEROXIDE 480 ML BOTTLE TP SCH ×2 (09:00→20:11)
[2019-02-14] MEDS: VITAMINS A AND D 56.7 GM TUBE TP SCH ×2 (09:00→20:38)
--- NOTE | 2019-02-14 13:58 | NUR ---
INTERDISCIPLINARY PLAN OF CARE CONFERENCE was held today. The patients responsible libertarian/ Cadence Mitchell [phone] and conservator, Erinlori Stephen was not able to attend or participate via phone conference. Charge nurse discussed 01/17/19 D/C SCD/DVT pump; 01/21 monitor for S/S of bleeding q shift (Lovenox Use). Dr. Cleveland and Interdisciplinary team discussed the plan of care in detail. Current orders as well as treatments and medications were reviewed. Please see other disciplines IDT notes for further details.
--- NOTE | 2019-02-14 14:00 | NUR ---
Resident's father unable to attend IDT meeting but updated him with patient's current condition and recent orders. Father is asking why patient's abdomen is big, informed Mr. Mitchell that patient has been passing his bowel regularly but will notify attending physician of his concern. Dr. Cleveland ordered KUB for Sunday. Endorsed.
--- NOTE | 2019-02-14 20:32 | NUR ---
PT RCVD TRACH'D ON MECHANICAL VENT WITH CHARTED SETTINGS. PT BRAULIO TX WELL. SX DONE. PT TRACH IS PATENT AND SECURE. VENT ALARMS APPEAR TO BE FUNCTIONING PROPERLY. AMBU BAG AT BEDSIDE. VENT PLUGGED INTO RED OUTLET. NO SOB NOTED. Addendum: 02/14/19 at 2031 by STANFORD PETERS RT Amended: Links added.
[2019-02-14] MEDS: ENOXAPARIN SODIUM 40 MG/0.4 ML DISP.SYRIN SQ SCH (20:38)
[2019-02-14] MEDS: JEVITY 1.2 CAL 1,000 ML BOTTLE JT PRN (21:06)
[2019-02-14] MEDS: POLYETHYLENE GLYCOL 3350 17 GM POWD.PACK GT SCH (22:36)
[2019-02-15] MEDS: ERYTHROMYCIN ETHYLSUCCINATE 200 MG/5 ML SUSPENSION GT SCH ×5 (00:37→23:55)
[2019-02-15] MEDS: ALBUTEROL FS 2.5 MG/3 ML VIAL.NEB NEB SCH ×4 (01:03→19:53)
[2019-02-15 03:41] VITALS: BP 101/63
[2019-02-15] MEDS: HYDROGEN PEROXIDE 480 ML BOTTLE TP SCH ×2 (07:37→19:53)
[2019-02-15 08:14] VITALS: BP 101/60
[2019-02-15] MEDS: POLYVINYL ALCOHOL 15 ML BOTTLE EACHEYE SCH ×4 (08:55→21:08)
[2019-02-15] MEDS: Z GUARD REMEDY 4 OZ OINT TP SCH ×2 (08:55→21:08)
[2019-02-15] MEDS: LEVETIRACETAM SOL (5 ML) 100 MG/ML UDC GT SCH ×2 (08:55→21:08)
[2019-02-15] MEDS: PROSOURCE / PROSTAT (PYXIS) 30 ML UDC JT SCH ×2 (08:55→16:55)
[2019-02-15] MEDS: FAMOTIDINE (20 MG) 20 MG TABLET GT SCH ×2 (08:55→21:08)
[2019-02-15] MEDS: VITAMINS A AND D 56.7 GM TUBE TP SCH ×2 (08:56→21:08)
[2019-02-15] MEDS: JEVITY 1.2 CAL 1,000 ML BOTTLE JT PRN (18:55)
[2019-02-15 20:44] VITALS: BP 109/68
[2019-02-15] MEDS: ENOXAPARIN SODIUM 40 MG/0.4 ML DISP.SYRIN SQ SCH (21:08)
[2019-02-15] MEDS: POLYETHYLENE GLYCOL 3350 17 GM POWD.PACK GT SCH (21:09)
--- NOTE | 2019-02-15 21:42 | NUR ---
NOTIFIED BY RN THAT PATIENT PULLED HIS TRACH OUT. TRACH WAS SUCCESSFULLY PLACED BACK WITH NO BLEEDING. TRACH CARE WAS DONE AT THIS TIME AND SX SMALL AMOUNT OF THICK WHITE SECRETIONS. PT IS IN NO RESP DISTRESS. WILL CONT TO MONITOR PT. Addendum: 02/15/19 at 2149 by CIRILO LOZOYA RT PLEASE DISREGARD PREVIOUS NOTE. INCORRECT PATIENT. UPDATED INFORMATION: RECEIVED TRACH PT ON [facility] VENT ON NOTED SETTINGS PER MD ORDERS. TRACH IS PATENT AND SECURED. TRACH CARE DONE. SPORTS MEDICINE TRAINER DONE. Q6 BREATHING TX GIVEN WITH NO ADVERSE REACTION NOTED. SX DONE PRN. VENT PLUGGED INTO RED OUTLET. ALARMS ON AND AUDIBLE. AMBU BAG @ BEDSIDE. NO RESP DISTRESS AT THIS TIME. WILL CONT TO MONITOR PT.
[2019-02-16] MEDS: ALBUTEROL FS 2.5 MG/3 ML VIAL.NEB NEB SCH ×4 (00:56→20:01)
[2019-02-16] MEDS: ERYTHROMYCIN ETHYLSUCCINATE 200 MG/5 ML SUSPENSION GT SCH ×3 (05:31→17:24)
[2019-02-16 07:43] VITALS: BP 96/64
[2019-02-16] MEDS: HYDROGEN PEROXIDE 480 ML BOTTLE TP SCH ×2 (08:21→23:41)
[2019-02-16] MEDS: VITAMINS A AND D 56.7 GM TUBE TP SCH ×2 (09:00→21:16)
[2019-02-16] MEDS: POLYVINYL ALCOHOL 15 ML BOTTLE EACHEYE SCH ×4 (09:00→21:14)
[2019-02-16] MEDS: LEVETIRACETAM SOL (5 ML) 100 MG/ML UDC GT SCH ×2 (09:00→21:15)
[2019-02-16] MEDS: PROSOURCE / PROSTAT (PYXIS) 30 ML UDC JT SCH ×2 (09:00→17:24)
[2019-02-16] MEDS: FAMOTIDINE (20 MG) 20 MG TABLET GT SCH ×2 (09:00→21:15)
[2019-02-16] MEDS: Z GUARD REMEDY 4 OZ OINT TP SCH ×2 (09:00→21:16)
--- NOTE | 2019-02-16 15:51 | NUR ---
RT NOTES RECEIVED PATIENT ON VENT WITH ORDERED SETTINGS. TRACH TUBE IN PLACE, PATENT, AND SECURED WITH TRACH TIE. ALARMS ON AND AUDIBLE. VENT PLUGGED IN TO THE RED OUTLET. AMBU BAG AND BACK UP TRACH BY THE BEDSIDE. NO RESP DISTRESS AT THIS TIME. Addendum: 02/16/19 at 1551 by EDNA CORTEZ RT Amended: Links added.
[2019-02-16 20:11] VITALS: BP 104/66
[2019-02-16] MEDS: ENOXAPARIN SODIUM 40 MG/0.4 ML DISP.SYRIN SQ SCH (21:16)
[2019-02-16] MEDS: POLYETHYLENE GLYCOL 3350 17 GM POWD.PACK GT SCH (21:46)
[2019-02-17] MEDS: ERYTHROMYCIN ETHYLSUCCINATE 200 MG/5 ML SUSPENSION GT SCH ×5 (00:24→23:51)
[2019-02-17] MEDS: ALBUTEROL FS 2.5 MG/3 ML VIAL.NEB NEB SCH ×4 (02:16→19:45)
[2019-02-17] MEDS: JEVITY 1.2 CAL 1,000 ML BOTTLE JT PRN (04:51)
[2019-02-17 07:43] VITALS: BP 158/55
[2019-02-17] MEDS: HYDROGEN PEROXIDE 480 ML BOTTLE TP SCH ×2 (07:55→21:04)
[2019-02-17] MEDS: LEVETIRACETAM SOL (5 ML) 100 MG/ML UDC GT SCH ×2 (08:15→20:08)
[2019-02-17] MEDS: PROSOURCE / PROSTAT (PYXIS) 30 ML UDC JT SCH ×2 (08:15→17:42)
[2019-02-17] MEDS: FAMOTIDINE (20 MG) 20 MG TABLET GT SCH ×2 (08:15→20:12)
[2019-02-17] MEDS: VITAMINS A AND D 56.7 GM TUBE TP SCH ×2 (08:15→20:10)
[2019-02-17] MEDS: POLYVINYL ALCOHOL 15 ML BOTTLE EACHEYE SCH ×4 (08:15→20:08)
[2019-02-17] MEDS: Z GUARD REMEDY 4 OZ OINT TP SCH ×2 (08:15→20:10)
[2019-02-17] MEDS: ENOXAPARIN SODIUM 40 MG/0.4 ML DISP.SYRIN SQ SCH (20:10)
[2019-02-17 20:34] VITALS: BP 124/74
[2019-02-17] MEDS: POLYETHYLENE GLYCOL 3350 17 GM POWD.PACK GT SCH (22:09)
[2019-02-18] MEDS: ALBUTEROL FS 2.5 MG/3 ML VIAL.NEB NEB SCH ×4 (02:13→19:57)
[2019-02-18] MEDS: JEVITY 1.2 CAL 1,000 ML BOTTLE JT PRN (04:52)
[2019-02-18] MEDS: ERYTHROMYCIN ETHYLSUCCINATE 200 MG/5 ML SUSPENSION GT SCH ×4 (05:48→23:53)
[2019-02-18 07:27] VITALS: BP 130/69
[2019-02-18] MEDS: HYDROGEN PEROXIDE 480 ML BOTTLE TP SCH ×2 (08:18→20:08)
[2019-02-18] MEDS: LEVETIRACETAM SOL (5 ML) 100 MG/ML UDC GT SCH ×2 (08:54→20:13)
[2019-02-18] MEDS: PROSOURCE / PROSTAT (PYXIS) 30 ML UDC JT SCH ×2 (08:54→17:10)
[2019-02-18] MEDS: VITAMINS A AND D 56.7 GM TUBE TP SCH ×2 (08:54→20:15)
[2019-02-18] MEDS: POLYVINYL ALCOHOL 15 ML BOTTLE EACHEYE SCH ×4 (08:54→20:13)
[2019-02-18] MEDS: Z GUARD REMEDY 4 OZ OINT TP SCH ×2 (08:54→20:15)
[2019-02-18] MEDS: FAMOTIDINE (20 MG) 20 MG TABLET GT SCH ×2 (08:54→20:13)
--- NOTE | 2019-02-18 09:30 | NUR ---
Seen and examined by Dr. Cleveland, reviewed abdominal KUB result, NNO given. Resident stable.
[2019-02-18 20:07] VITALS: BP 94/56
[2019-02-18] MEDS: ENOXAPARIN SODIUM 40 MG/0.4 ML DISP.SYRIN SQ SCH (20:14)
--- NOTE | 2019-02-18 20:18 | NUR ---
PT RCVD TRACH'D ON MECHANICAL VENT WITH CHARTED SETTINGS. PT BRAULIO TX WELL. SX DONE. PT TRACH IS PATENT AND SECURE. VENT ALARMS APPEAR TO BE FUNCTIONING PROPERLY. AMBU BAG AT BEDSIDE. VENT PLUGGED INTO RED OUTLET. NO SOB NOTED. Addendum: 02/18/19 at 2018 by STANFORD PETERS RT Amended: Links added.
[2019-02-18] MEDS: POLYETHYLENE GLYCOL 3350 17 GM POWD.PACK GT SCH (22:07)
[2019-02-19] MEDS: ALBUTEROL FS 2.5 MG/3 ML VIAL.NEB NEB SCH ×4 (00:51→19:07)
[2019-02-19] MEDS: ERYTHROMYCIN ETHYLSUCCINATE 200 MG/5 ML SUSPENSION GT SCH ×4 (05:13→23:33)
[2019-02-19 07:23] VITALS: BP 112/55
[2019-02-19] MEDS: HYDROGEN PEROXIDE 480 ML BOTTLE TP SCH ×2 (07:51→19:08)
[2019-02-19] MEDS: Z GUARD REMEDY 4 OZ OINT TP SCH ×2 (08:19→20:24)
[2019-02-19] MEDS: POLYVINYL ALCOHOL 15 ML BOTTLE EACHEYE SCH ×4 (08:19→20:21)
[2019-02-19] MEDS: VITAMINS A AND D 56.7 GM TUBE TP SCH ×2 (08:19→20:25)
[2019-02-19] MEDS: PROSOURCE / PROSTAT (PYXIS) 30 ML UDC JT SCH ×2 (08:19→16:30)
[2019-02-19] MEDS: LEVETIRACETAM SOL (5 ML) 100 MG/ML UDC GT SCH ×2 (08:19→20:22)
[2019-02-19] MEDS: FAMOTIDINE (20 MG) 20 MG TABLET GT SCH ×2 (08:19→20:22)
[2019-02-19] MEDS: JEVITY 1.2 CAL 1,000 ML BOTTLE JT PRN (12:15)
--- NOTE | 2019-02-19 16:40 | NUR ---
RT NOTE RECEIVED PATIENT ON TRACH ON MECHANICAL VENTILATOR WITH NOTED SETTINGS. TRACH IS PATENT AND SECURED. VENTILATOR IS PLUGGED TO RED OUTLET. SPARE TRACH AND BVM IS AT BEDSIDE. PATIENT HAS EQUAL CHEST RISE WITH COARSE BILATERAL BREATH SOUNDS. PATIENT IS COMFORTABLE AND IN SYNC WITH THE VENTILATOR. Q6 BREATHING TREATMENTS GIVEN WITH NO ADVERSE REACTIONS. SUCTION MODERATE THIN GREEN/WHITE SECRETIONS THROUGH OUT THE DAY. NO SOB NOTED. Addendum: 02/19/19 at 1640 by HIMA VILLALOBOS RT Amended: Links added.
[2019-02-19 19:51] VITALS: BP 92/54
[2019-02-19] MEDS: ENOXAPARIN SODIUM 40 MG/0.4 ML DISP.SYRIN SQ SCH (20:24)
[2019-02-19] MEDS: POLYETHYLENE GLYCOL 3350 17 GM POWD.PACK GT SCH (22:15)
[2019-02-20] MEDS: ALBUTEROL FS 2.5 MG/3 ML VIAL.NEB NEB SCH ×4 (01:43→19:36)
--- NOTE | 2019-02-20 02:37 | NUR ---
PATIENT RECEIVED ON TRACH TO VENT WITH SETTINGS OF AC 14, 450 VT, 40%, +5. SUCTIONED FOR MINIMAL, THIN, WHITE SECRETIONS. GIVEN IN-LINE TREATMENTS WITH NO ADVERSE REACTIONS. AMBU BAG AT BEDSIDE. VENT ALARM AUDIBLE AND VISIBLE. VENT PLUGGED INTO RED OUTLET. TRACH CARE DONE. Addendum: 02/20/19 at 0237 by MALLY NGUYEN RT Amended: Links added.
[2019-02-20] MEDS: ERYTHROMYCIN ETHYLSUCCINATE 200 MG/5 ML SUSPENSION GT SCH ×4 (05:02→23:18)
[2019-02-20 07:23] VITALS: BP 97/63
[2019-02-20] MEDS: VITAMINS A AND D 56.7 GM TUBE TP SCH ×2 (08:59→20:38)
[2019-02-20] MEDS: LEVETIRACETAM SOL (5 ML) 100 MG/ML UDC GT SCH ×2 (08:59→20:37)
[2019-02-20] MEDS: PROSOURCE / PROSTAT (PYXIS) 30 ML UDC JT SCH ×2 (08:59→16:46)
[2019-02-20] MEDS: FAMOTIDINE (20 MG) 20 MG TABLET GT SCH ×2 (08:59→20:37)
[2019-02-20] MEDS: POLYVINYL ALCOHOL 15 ML BOTTLE EACHEYE SCH ×4 (08:59→20:37)
[2019-02-20] MEDS: Z GUARD REMEDY 4 OZ OINT TP SCH ×2 (08:59→20:37)
[2019-02-20] MEDS: HYDROGEN PEROXIDE 480 ML BOTTLE TP SCH ×2 (09:00→20:37)
[2019-02-20] MEDS: JEVITY 1.2 CAL 1,000 ML BOTTLE JT PRN (16:46)
--- NOTE | 2019-02-20 18:24 | NUR ---
RT NOTE RECEIVED PT MECHANICALLY VENTILATED VIA CUFFED TRACHEOSTOMY TUBE. CUFF INFLATED. TRACH TUBE MIDLINE AND SECURE. VENTILATOR SETTINGS PRESCRIBED. ALARMS SET PER PROTOCOL AND AUDIBLE. VENT PLUGGED IN TO RED OUTLET. AMBU BAG AND BACK UP TRACH AT BED SIDE. NO DISTRESS NOTED. Addendum: 02/20/19 at 1824 by GLNEIS MUNIZ RT Amended: Links added.
[2019-02-20 19:46] VITALS: BP 99/76
[2019-02-20] MEDS: ENOXAPARIN SODIUM 40 MG/0.4 ML DISP.SYRIN SQ SCH (20:37)
[2019-02-20] MEDS: POLYETHYLENE GLYCOL 3350 17 GM POWD.PACK GT SCH (21:08)
[2019-02-21] MEDS: ALBUTEROL FS 2.5 MG/3 ML VIAL.NEB NEB SCH ×4 (01:58→18:54)
[2019-02-21] MEDS: ERYTHROMYCIN ETHYLSUCCINATE 200 MG/5 ML SUSPENSION GT SCH ×3 (05:38→17:52)
[2019-02-21 07:46] VITALS: BP 110/55
--- NOTE | 2019-02-21 08:28 | NUR ---
RT NOTE RECEIVED PT MECHANICALLY VENTILATED VIA CUFFED TRACHEOSTOMY TUBE. CUFF INFLATED. TRACH TUBE MIDLINE AND SECURE. VENTILATOR SETTINGS PRESCRIBED. ALARMS SET PER PROTOCOL AND AUDIBLE. VENT PLUGGED IN TO RED OUTLET. AMBU BAG AND BACK UP TRACH AT BED SIDE. NO DISTRESS NOTED. Addendum: 02/21/19 at 0828 by GLENIS MUNIZ RT Amended: Links added.
[2019-02-21] MEDS: HYDROGEN PEROXIDE 480 ML BOTTLE TP SCH ×2 (09:00→21:00)
[2019-02-21] MEDS: POLYVINYL ALCOHOL 15 ML BOTTLE EACHEYE SCH ×4 (09:42→21:24)
[2019-02-21] MEDS: LEVETIRACETAM SOL (5 ML) 100 MG/ML UDC GT SCH ×2 (09:42→21:24)
[2019-02-21] MEDS: FAMOTIDINE (20 MG) 20 MG TABLET GT SCH ×2 (09:43→21:24)
[2019-02-21] MEDS: Z GUARD REMEDY 4 OZ OINT TP SCH ×2 (09:43→21:24)
[2019-02-21] MEDS: PROSOURCE / PROSTAT (PYXIS) 30 ML UDC JT SCH ×2 (09:43→17:51)
[2019-02-21] MEDS: VITAMINS A AND D 56.7 GM TUBE TP SCH ×2 (09:43→21:24)
[2019-02-21 20:04] VITALS: BP 93/58
[2019-02-21] MEDS: ENOXAPARIN SODIUM 40 MG/0.4 ML DISP.SYRIN SQ SCH (21:24)
[2019-02-21] MEDS: JEVITY 1.2 CAL 1,000 ML BOTTLE JT PRN (21:25)
[2019-02-21] MEDS: POLYETHYLENE GLYCOL 3350 17 GM POWD.PACK GT SCH (21:25)
[2019-02-22] MEDS: ERYTHROMYCIN ETHYLSUCCINATE 200 MG/5 ML SUSPENSION GT SCH ×4 (00:23→17:58)
[2019-02-22] MEDS: ALBUTEROL FS 2.5 MG/3 ML VIAL.NEB NEB SCH ×4 (02:01→19:41)
[2019-02-22 08:01] VITALS: BP 105/62
[2019-02-22] MEDS: FAMOTIDINE (20 MG) 20 MG TABLET GT SCH ×2 (09:00→21:29)
[2019-02-22] MEDS: Z GUARD REMEDY 4 OZ OINT TP SCH ×2 (09:00→21:29)
[2019-02-22] MEDS: PROSOURCE / PROSTAT (PYXIS) 30 ML UDC JT SCH ×2 (09:00→17:58)
[2019-02-22] MEDS: POLYVINYL ALCOHOL 15 ML BOTTLE EACHEYE SCH ×4 (09:00→21:29)
[2019-02-22] MEDS: LEVETIRACETAM SOL (5 ML) 100 MG/ML UDC GT SCH ×2 (09:00→21:29)
[2019-02-22] MEDS: VITAMINS A AND D 56.7 GM TUBE TP SCH ×2 (09:00→21:29)
[2019-02-22] MEDS: HYDROGEN PEROXIDE 480 ML BOTTLE TP SCH ×2 (09:00→21:00)
--- NOTE | 2019-02-22 09:29 | NUR ---
RT NOTE RECEIVED PT MECHANICALLY VENTILATED VIA CUFFED TRACHEOSTOMY TUBE. CUFF INFLATED. TRACH TUBE MIDLINE AND SECURE. VENTILATOR SETTINGS PRESCRIBED. ALARMS SET PER PROTOCOL AND AUDIBLE. VENT PLUGGED IN TO RED OUTLET. AMBU BAG AND BACK UP TRACH AT BED SIDE. NO DISTRESS NOTED. Addendum: 02/22/19 at 0930 by GLENIS MUNIZ RT Amended: Links added.
[2019-02-22] MEDS: JEVITY 1.2 CAL 1,000 ML BOTTLE JT PRN (18:54)
[2019-02-22 20:25] VITALS: BP 114/61
[2019-02-22] MEDS: ENOXAPARIN SODIUM 40 MG/0.4 ML DISP.SYRIN SQ SCH (21:29)
[2019-02-22] MEDS: POLYETHYLENE GLYCOL 3350 17 GM POWD.PACK GT SCH (21:29)
[2019-02-23] MEDS: ERYTHROMYCIN ETHYLSUCCINATE 200 MG/5 ML SUSPENSION GT SCH ×4 (00:05→17:27)
[2019-02-23] MEDS: ALBUTEROL FS 2.5 MG/3 ML VIAL.NEB NEB SCH ×4 (02:18→19:32)
[2019-02-23 07:29] VITALS: BP 106/57
[2019-02-23] MEDS: HYDROGEN PEROXIDE 480 ML BOTTLE TP SCH ×2 (09:00→21:00)
[2019-02-23] MEDS: Z GUARD REMEDY 4 OZ OINT TP SCH ×2 (09:56→21:21)
[2019-02-23] MEDS: PROSOURCE / PROSTAT (PYXIS) 30 ML UDC JT SCH ×2 (09:56→17:27)
[2019-02-23] MEDS: POLYVINYL ALCOHOL 15 ML BOTTLE EACHEYE SCH ×4 (09:56→21:21)
[2019-02-23] MEDS: FAMOTIDINE (20 MG) 20 MG TABLET GT SCH ×2 (09:56→21:21)
[2019-02-23] MEDS: LEVETIRACETAM SOL (5 ML) 100 MG/ML UDC GT SCH ×2 (09:56→21:21)
[2019-02-23] MEDS: VITAMINS A AND D 56.7 GM TUBE TP SCH ×2 (09:56→21:21)
[2019-02-23 19:55] VITALS: BP 109/64
[2019-02-23] MEDS: POLYETHYLENE GLYCOL 3350 17 GM POWD.PACK GT SCH (21:21)
[2019-02-23] MEDS: ENOXAPARIN SODIUM 40 MG/0.4 ML DISP.SYRIN SQ SCH (21:21)
[2019-02-24] MEDS: ERYTHROMYCIN ETHYLSUCCINATE 200 MG/5 ML SUSPENSION GT SCH ×4 (00:14→17:17)
[2019-02-24] MEDS: ALBUTEROL FS 2.5 MG/3 ML VIAL.NEB NEB SCH ×4 (01:38→19:51)
[2019-02-24 07:39] VITALS: BP 93/57
[2019-02-24] MEDS: HYDROGEN PEROXIDE 480 ML BOTTLE TP SCH ×2 (08:12→20:15)
[2019-02-24] MEDS: POLYVINYL ALCOHOL 15 ML BOTTLE EACHEYE SCH ×4 (09:05→20:52)
[2019-02-24] MEDS: VITAMINS A AND D 56.7 GM TUBE TP SCH ×2 (09:06→20:55)
[2019-02-24] MEDS: FAMOTIDINE (20 MG) 20 MG TABLET GT SCH ×2 (09:06→20:54)
[2019-02-24] MEDS: Z GUARD REMEDY 4 OZ OINT TP SCH ×2 (09:06→20:55)
[2019-02-24] MEDS: LEVETIRACETAM SOL (5 ML) 100 MG/ML UDC GT SCH ×2 (09:06→20:53)
[2019-02-24] MEDS: PROSOURCE / PROSTAT (PYXIS) 30 ML UDC JT SCH ×2 (09:06→17:17)
--- NOTE | 2019-02-24 10:37 | NUR ---
RT NOTE RECEIVED PATIENT ON TRACH WITH MECHANICAL VENTILATOR. TRACH IS PATENT AND SECURED. SPARE TRACH AND BVM IS AT BEDSIDE. VENTILATOR IS PLUGGED TO RED OUTLET. ALARMS ARE SET AND AUDIBLE. PATIENT HAS EQUAL CHEST RISE AND COARSE BILATERAL BREATH SOUNDS. SUCTION SMALL AMOUNT OF WHITE THIN SECRETIONS. PATIENT IS IN SYNC AND COMFORTABLE ON THE VENTILATOR. WILL CONTINUE TO MONITOR. Addendum: 02/24/19 at 1038 by HIMA VILLALOBOS RT Amended: Links added.
[2019-02-24 20:02] VITALS: BP 115/61
--- NOTE | 2019-02-24 20:51 | NUR ---
PT RCVD TRACH'D ON MECHANICAL VENT WITH CHARTED SETTINGS. PT BRAULIO TX WELL. SX DONE. PT TRACH IS PATENT AND SECURE. VENT ALARMS APPEAR TO BE FUNCTIONING PROPERLY. AMBU BAG AT BEDSIDE. VENT PLUGGED INTO RED OUTLET. NO SOB NOTED. Addendum: 02/24/19 at 2051 by STANFORD PETERS RT Amended: Links added.
[2019-02-24] MEDS: ENOXAPARIN SODIUM 40 MG/0.4 ML DISP.SYRIN SQ SCH (20:54)
[2019-02-24] MEDS: POLYETHYLENE GLYCOL 3350 17 GM POWD.PACK GT SCH (21:45)
[2019-02-25] MEDS: ERYTHROMYCIN ETHYLSUCCINATE 200 MG/5 ML SUSPENSION GT SCH ×4 (00:21→17:01)
[2019-02-25] MEDS: ALBUTEROL FS 2.5 MG/3 ML VIAL.NEB NEB SCH ×4 (01:22→19:51)
[2019-02-25] MEDS: JEVITY 1.2 CAL 1,000 ML BOTTLE JT PRN (06:06)
[2019-02-25 07:36] VITALS: BP 110/62
[2019-02-25] MEDS: HYDROGEN PEROXIDE 480 ML BOTTLE TP SCH ×2 (08:40→21:00)
[2019-02-25] MEDS: PROSOURCE / PROSTAT (PYXIS) 30 ML UDC JT SCH ×2 (09:19→17:01)
[2019-02-25] MEDS: LEVETIRACETAM SOL (5 ML) 100 MG/ML UDC GT SCH ×2 (09:19→21:03)
[2019-02-25] MEDS: FAMOTIDINE (20 MG) 20 MG TABLET GT SCH ×2 (09:19→21:05)
[2019-02-25] MEDS: Z GUARD REMEDY 4 OZ OINT TP SCH ×2 (09:19→21:05)
[2019-02-25] MEDS: POLYVINYL ALCOHOL 15 ML BOTTLE EACHEYE SCH ×4 (09:19→21:03)
[2019-02-25] MEDS: VITAMINS A AND D 56.7 GM TUBE TP SCH ×2 (09:19→21:06)
[2019-02-25 19:55] VITALS: BP 110/68
[2019-02-25] MEDS: ENOXAPARIN SODIUM 40 MG/0.4 ML DISP.SYRIN SQ SCH (21:05)
[2019-02-25] MEDS: POLYETHYLENE GLYCOL 3350 17 GM POWD.PACK GT SCH (21:36)
[2019-02-26] MEDS: ERYTHROMYCIN ETHYLSUCCINATE 200 MG/5 ML SUSPENSION GT SCH ×4 (00:27→17:47)
[2019-02-26] MEDS: ALBUTEROL FS 2.5 MG/3 ML VIAL.NEB NEB SCH ×4 (01:41→19:06)
[2019-02-26] MEDS: JEVITY 1.2 CAL 1,000 ML BOTTLE JT PRN (05:54)
[2019-02-26 08:00] VITALS: BP 82/44
[2019-02-26] MEDS: FAMOTIDINE (20 MG) 20 MG TABLET GT SCH ×2 (08:25→21:13)
[2019-02-26] MEDS: POLYVINYL ALCOHOL 15 ML BOTTLE EACHEYE SCH ×4 (08:25→21:12)
[2019-02-26] MEDS: LEVETIRACETAM SOL (5 ML) 100 MG/ML UDC GT SCH ×2 (08:25→21:13)
[2019-02-26] MEDS: PROSOURCE / PROSTAT (PYXIS) 30 ML UDC JT SCH ×2 (08:25→17:47)
[2019-02-26] MEDS: VITAMINS A AND D 56.7 GM TUBE TP SCH ×2 (09:00→21:14)
[2019-02-26] MEDS: Z GUARD REMEDY 4 OZ OINT TP SCH ×2 (09:00→21:14)
[2019-02-26] MEDS: HYDROGEN PEROXIDE 480 ML BOTTLE TP SCH ×2 (09:59→19:06)
[2019-02-26] MEDS: BISACODYL SUPP (10 MG) 10 MG/SUPP.RECT SUPP.RECT RC PRN (18:47)
[2019-02-26 20:14] VITALS: BP 97/65
[2019-02-26 20:37] VITALS: BP 97/65
[2019-02-26] MEDS: ENOXAPARIN SODIUM 40 MG/0.4 ML DISP.SYRIN SQ SCH (21:14)
[2019-02-26] MEDS: POLYETHYLENE GLYCOL 3350 17 GM POWD.PACK GT SCH (21:43)
[2019-02-27] MEDS: ERYTHROMYCIN ETHYLSUCCINATE 200 MG/5 ML SUSPENSION GT SCH ×2 (00:42→05:47)
[2019-02-27] MEDS: ALBUTEROL FS 2.5 MG/3 ML VIAL.NEB NEB SCH ×2 (01:48→07:54)
--- NOTE | 2019-02-27 05:49 | NUR ---
PATIENT RECEIVED ON TRACH TO VENT WITH SETTINGS OF AC 14, 450 Vt, 40%, +0. SUCTIONED FOR MINIMAL, THIN, WHITE SECRETIONS. GIVEN IN-LINE TREATMENTS WITH NO ADVERSE REACTIONS. AMBU BAG AT BEDSIDE. VENT AND PULSE OXIMETER ALARMS AUDIBLE AND VISIBLE. VENT PLUGGED INTO RED OUTLET. TRACH CARE DONE. Addendum: 02/27/19 at 0551 by MALLY NGUYEN RT Amended: Links added.
[2019-02-27] MEDS: JEVITY 1.2 CAL 1,000 ML BOTTLE JT PRN (05:56)
[2019-02-27 07:47] VITALS: BP 113/68
[2019-02-27] MEDS: HYDROGEN PEROXIDE 480 ML BOTTLE TP SCH (07:54)
== END 2019-02-25 23:59 | disposition still patient (30) | DRG 130 ==
LOC: SA
PROVIDERS: ADMIT Internal Medicine Pulmonary Disease; ATTEND Internal Medicine Pulmonary Disease
PROC: 5A1955Z Respiratory Ventilation, Greater than 96 Consecutive Hours (ICD-10-PCS; principal; 2018-02-26)
PROC: 05H533Z Insertion of Infusion Device into Right Subclavian Vein, Percutaneous Approach (ICD-10-PCS; 2018-03-30)
PROC: 0HDRXZZ Extraction of Toe Nail, External Approach (ICD-10-PCS; 2018-06-26)
DX: J96.11 Chronic respiratory failure with hypoxia (principal); G93.1 Anoxic brain damage, not elsewhere classified; J95.851 Ventilator associated pneumonia; J18.1 Lobar pneumonia, unspecified organism; J81.1 Chronic pulmonary edema; E46 Unspecified protein-calorie malnutrition; K56.609 Unspecified intestinal obstruction, unspecified as to partial versus complete obstruction; I49.5 Sick sinus syndrome; R53.2 Functional quadriplegia; Z99.11 Dependence on respirator [ventilator] status; I48.91 Unspecified atrial fibrillation; Z86.74 Personal history of sudden cardiac arrest; R13.10 Dysphagia, unspecified; Z93.1 Gastrostomy status; K94.23 Gastrostomy malfunction; K80.20 Calculus of gallbladder without cholecystitis without obstruction; Z88.1 Allergy status to other antibiotic agents; K21.9 Gastro-esophageal reflux disease without esophagitis; D64.9 Anemia, unspecified; G40.909 Epilepsy, unspecified, not intractable, without status epilepticus; Z68.36 Body mass index [BMI] 36.0-36.9, adult; I50.9 Heart failure, unspecified; E66.9 Obesity, unspecified; M81.0 Age-related osteoporosis without current pathological fracture; I25.5 Ischemic cardiomyopathy; B35.3 Tinea pedis; E55.9 Vitamin D deficiency, unspecified; E78.5 Hyperlipidemia, unspecified; J98.11 Atelectasis; K08.89 Other specified disorders of teeth and supporting structures; K94.13 Enterostomy malfunction; L03.90 Cellulitis, unspecified; L60.0 Ingrowing nail; L85.3 Xerosis cutis; N39.0 Urinary tract infection, site not specified; Z74.01 Bed confinement status; Z79.899 Other long term (current) drug therapy; Z93.0 Tracheostomy status; L60.3 Nail dystrophy; N48.1 Balanitis
CPT/HCPCS: 31720; 36415; 36569; 36600; 71045-TC; 74018; 80048-TC; 80053-TC; 80202-TC; 81000-TC; 82962-TC; 85025-TC; 86580-TC; 87040-TC; 87086-TC; 87186-TC; 92507-TC; 92521; 94003-TC; 94640-TC; 94760-TC; 94761-TC; 94762-TC; 94799-TC; 99082-TC; A4623; A6253; A7526; J1650; J1953; J2185; J2405; J3260; J3370; J3490; J7030; J7042; J7060; Q0163; Q2036

== ENCOUNTER → 2024-02-26 23:59 | Inpatient (IN) | payer MEDICAID ==
[2023-02-27 07:17] VITALS: BP 122/76; TEMP 98.7; O2SAT 99
[2023-02-27] MEDS: ALBUTEROL FS 2.5 MG/0.5 ML VIAL.NEB NEB SCH (07:25)
[2023-02-27] MEDS: IPRATROPIUM NEB FS 0.5 MG/2.5 ML AMPUL.NEB NEB SCH (07:25)
[2023-02-27] MEDS: ISONIAZID (300 MG) 300 MG TABLET GT SCH (08:27)
[2023-02-27] MEDS: LEVETIRACETAM SOL (5 ML) 100 MG/ML UDC GT SCH (08:27)
[2023-02-27] MEDS: ASCORBIC ACID 500 MG TABLET GT SCH (08:29)
[2023-02-27] MEDS: VITAMINS A AND D 56.7 GM TUBE TP SCH (08:29)
[2023-02-27] MEDS: FAMOTIDINE (20 MG) 20 MG TABLET GT SCH (08:29)
[2023-02-27] MEDS: PYRIDOXINE HCL 50 MG TABLET GT SCH (08:29)
[2023-02-27] MEDS: Z GUARD REMEDY 4 OZ OINT TP SCH (08:29)
[2023-02-27] MEDS: PROSOURCE / PROSTAT (PYXIS) 30 ML UDC GT SCH (08:29)
[2023-02-27] MEDS: HYDROGEN PEROXIDE 480 ML BOTTLE TP SCH (09:42)
[2023-02-27 10:07] VITALS: O2SAT 99
[2023-02-27] MEDS: POLYVINYL ALCOHOL 15 ML BOTTLE EACHEYE SCH (12:00)
[2023-02-27] MEDS: ERYTHROMYCIN ETHYLSUCCINATE 200 MG/5 ML SUSPENSION GT SCH (13:02)
[2023-02-27] MEDS: JEVITY 1.2 CAL 1,000 ML BOTTLE JT PRN (14:59)
[2023-02-27 20:00] VITALS: BP 129/72; TEMP 98.1; O2SAT 99
[2023-02-27] MEDS: ENOXAPARIN SODIUM 40 MG/0.4 ML DISP.SYRIN SQ SCH (20:21)
[2023-02-27] MEDS: POLYETHYLENE GLYCOL 3350 17 GM POWD.PACK GT SCH (20:22)
[2023-02-27 23:55] VITALS: O2SAT 99
[2023-02-28] VITALS (7 sets, daily range): BP systolic 114–124; BP diastolic 69–78; TEMP 97.9–98.1; O2SAT 95–99
[2023-03-01 07:54] VITALS: BP 116/80; TEMP 97.7; O2SAT 99
[2023-03-01 11:35] VITALS: O2SAT 100
[2023-03-01 19:52] VITALS: BP 105/68; TEMP 98; O2SAT 100; O2SAT 98
[2023-03-01 22:30] VITALS: O2SAT 99
[2023-03-02 10:10] VITALS: O2SAT 100
[2023-03-02 19:29] VITALS: BP 129/61; TEMP 97.7; O2SAT 99
[2023-03-02 19:36] VITALS: O2SAT 100
[2023-03-02 23:22] VITALS: O2SAT 99
[2023-03-03] MEDS: BISACODYL SUPP (10 MG) 10 MG/SUPP.RECT SUPP.RECT RC PRN (06:53)
[2023-03-03 07:05] VITALS: BP 139/91; TEMP 97.7; O2SAT 100
[2023-03-03 10:00] VITALS: O2SAT 100
[2023-03-03 19:25] VITALS: BP 135/92; TEMP 97.3; O2SAT 100
[2023-03-03 22:01] VITALS: O2SAT 99
[2023-03-04 09:09] VITALS: BP 116/68; TEMP 97.5; O2SAT 99
[2023-03-04 10:02] VITALS: O2SAT 99
[2023-03-04 20:28] VITALS: BP 124/85; TEMP 97.9; O2SAT 98
[2023-03-04 22:05] VITALS: O2SAT 98
[2023-03-05 08:10] VITALS: BP 119/79; TEMP 97.9; O2SAT 98
[2023-03-05 12:01] VITALS: O2SAT 99
[2023-03-05 12:03] VITALS: O2SAT 99
[2023-03-05 20:41] VITALS: BP 141/82; TEMP 97.9; O2SAT 95
[2023-03-05 23:52] VITALS: O2SAT 96
[2023-03-05 23:53] VITALS: O2SAT 98
[2023-03-06 07:40] VITALS: BP 107/68; TEMP 97.7; O2SAT 97
[2023-03-06 10:19] VITALS: O2SAT 99
[2023-03-06 14:35] VITALS: RESP 15; O2SAT 99
[2023-03-06 14:54] VITALS: O2SAT 98
[2023-03-06 20:06] VITALS: BP 112/71; TEMP 98.1; O2SAT 100
[2023-03-06 22:49] VITALS: O2SAT 98
[2023-03-07] VITALS (7 sets, daily range): BP systolic 110–133; BP diastolic 65–67; TEMP 97.3–97.7; O2SAT 98–100
[2023-03-08 06:59] VITALS: BP 106/69; TEMP 97.5; O2SAT 95
[2023-03-08 10:48] VITALS: O2SAT 95; O2SAT 99
[2023-03-08 19:19] VITALS: BP 132/67; TEMP 97.5; O2SAT 97
[2023-03-08 22:40] VITALS: O2SAT 97
[2023-03-08 22:41] VITALS: O2SAT 97
[2023-03-09 07:59] VITALS: BP 113/68; TEMP 97.9; O2SAT 94
[2023-03-09 10:52] VITALS: O2SAT 94
[2023-03-09 10:53] VITALS: O2SAT 94
[2023-03-09 19:41] VITALS: BP 120/68; TEMP 97.6; O2SAT 99
[2023-03-09 23:32] VITALS: O2SAT 95
[2023-03-09 23:33] VITALS: O2SAT 95
[2023-03-10 07:35] VITALS: BP 95/62; TEMP 97.7; O2SAT 98
[2023-03-10 10:14] VITALS: O2SAT 95; O2SAT 99
[2023-03-10 19:35] VITALS: BP 132/71; TEMP 98.2; O2SAT 97
[2023-03-10 22:22] VITALS: O2SAT 97
[2023-03-10 22:23] VITALS: O2SAT 97
[2023-03-11 07:59] VITALS: BP 109/75; TEMP 97.7; O2SAT 97
[2023-03-11 08:52] VITALS: O2SAT 96
[2023-03-11 11:48] VITALS: O2SAT 96
[2023-03-11 20:03] VITALS: BP 101/85; TEMP 97.5; O2SAT 96
[2023-03-11 23:22] VITALS: O2SAT 97
[2023-03-12 07:24] VITALS: BP 100/68; TEMP 97.8; O2SAT 100
[2023-03-12 10:25] VITALS: O2SAT 98
[2023-03-12 10:26] VITALS: O2SAT 96
[2023-03-12 20:10] VITALS: BP 128/69; TEMP 98.1; O2SAT 97
[2023-03-12 22:24] VITALS: O2SAT 98
[2023-03-13 08:10] VITALS: BP 118/80; TEMP 97.9; O2SAT 97
[2023-03-13 08:45] VITALS: O2SAT 97
[2023-03-13 11:19] VITALS: O2SAT 96
[2023-03-13 22:30] VITALS: BP 104/70; TEMP 97.5; O2SAT 97
[2023-03-13 23:40] VITALS: O2SAT 97
[2023-03-14 07:20] VITALS: O2SAT 96
[2023-03-14 07:41] VITALS: BP 123/80; TEMP 98.2; O2SAT 99
[2023-03-14 10:07] VITALS: O2SAT 98
[2023-03-14 19:52] VITALS: BP 120/72; TEMP 97.5; O2SAT 98
[2023-03-14] MEDS: TRIAMCINOLONE ACETONIDE 0.1% CR 15 GM TUBE TP SCH (20:32)
[2023-03-14] MEDS: NYSTATIN CREAM 15 GM TUBE TP SCH (20:33)
[2023-03-14 22:22] VITALS: O2SAT 97
[2023-03-15 07:34] VITALS: BP 106/67; TEMP 97.7; O2SAT 100
[2023-03-15 08:38] VITALS: O2SAT 97
[2023-03-15 14:56] VITALS: O2SAT 94
[2023-03-15 20:02] VITALS: BP 111/69; TEMP 98.8; O2SAT 96
[2023-03-15 23:28] VITALS: O2SAT 95
[2023-03-15 23:29] VITALS: O2SAT 95
[2023-03-16 07:43] VITALS: BP 96/59; TEMP 98.4; O2SAT 99
[2023-03-16 10:05] VITALS: O2SAT 97
[2023-03-16 19:46] VITALS: BP 119/74; TEMP 97.5; O2SAT 96
[2023-03-16 23:24] VITALS: O2SAT 96
[2023-03-16 23:25] VITALS: O2SAT 96
[2023-03-17 07:43] VITALS: BP 120/71; TEMP 97.8; O2SAT 95
[2023-03-17 10:23] VITALS: O2SAT 95; O2SAT 96
[2023-03-17 20:55] VITALS: BP 115/71; TEMP 97.8; O2SAT 97
[2023-03-17 23:40] VITALS: O2SAT 95
[2023-03-17 23:41] VITALS: O2SAT 95
[2023-03-18 07:43] VITALS: BP 129/78; TEMP 97.7; O2SAT 99
[2023-03-18 10:03] VITALS: O2SAT 98
[2023-03-18 10:04] VITALS: O2SAT 98
[2023-03-18 21:49] VITALS: BP 109/57; TEMP 97.9; O2SAT 96
[2023-03-18 22:59] VITALS: O2SAT 9; O2SAT 97
[2023-03-19 07:35] VITALS: BP 103/69; TEMP 98; O2SAT 97
[2023-03-19 10:15] VITALS: O2SAT 98
[2023-03-19 10:16] VITALS: O2SAT 98
[2023-03-19 20:00] VITALS: BP 111/79; TEMP 98.1; O2SAT 99
[2023-03-19 22:51] VITALS: O2SAT 97
[2023-03-20 07:31] VITALS: BP 110/57; TEMP 98; O2SAT 95
[2023-03-20 08:19] VITALS: O2SAT 98
[2023-03-20 11:11] VITALS: O2SAT 93
[2023-03-20 21:37] VITALS: BP 101/63; TEMP 97.9; O2SAT 96
[2023-03-20 22:58] VITALS: O2SAT 97
[2023-03-21 07:38] VITALS: BP 102/65; TEMP 97.7; O2SAT 99
[2023-03-21 10:19] VITALS: O2SAT 96
[2023-03-21 10:20] VITALS: O2SAT 96
[2023-03-21 20:39] VITALS: BP 101/71; TEMP 98.8; O2SAT 99
[2023-03-21 22:04] VITALS: O2SAT 97
[2023-03-22 07:33] VITALS: BP 96/51; TEMP 97.4; O2SAT 100
[2023-03-22 08:18] VITALS: O2SAT 96
[2023-03-22 11:19] VITALS: O2SAT 97
[2023-03-22 19:30] VITALS: BP 105/58; TEMP 97.5; O2SAT 95
[2023-03-22 22:24] VITALS: O2SAT 95
[2023-03-22 22:25] VITALS: O2SAT 95
[2023-03-23 07:53] VITALS: BP 113/76; TEMP 98.6; O2SAT 100
[2023-03-23 10:01] VITALS: O2SAT 96
[2023-03-23 19:25] VITALS: BP 121/67; TEMP 97.6; O2SAT 100
[2023-03-23 23:20] VITALS: O2SAT 100
[2023-03-24 07:22] VITALS: BP 112/80; TEMP 97.9; O2SAT 100
[2023-03-24 10:11] VITALS: O2SAT 99
[2023-03-24 19:53] VITALS: BP 116/69; TEMP 98.4; O2SAT 96
[2023-03-24 23:04] VITALS: O2SAT 96
[2023-03-25 07:34] VITALS: BP 98/71; TEMP 98.1; O2SAT 100
[2023-03-25 10:43] VITALS: O2SAT 97; O2SAT 99
[2023-03-25 20:03] VITALS: BP 104/73; TEMP 97.5; O2SAT 97
[2023-03-25 23:41] VITALS: O2SAT 100
[2023-03-26 07:12] VITALS: BP 114/76; TEMP 98.1; O2SAT 96
[2023-03-26] MEDS: HYDROGEN PEROXIDE 480 ML BOTTLE TP PRN (08:22)
[2023-03-26 08:30] VITALS: O2SAT 96
[2023-03-26 11:06] VITALS: O2SAT 95
[2023-03-26 20:00] VITALS: BP 111/67; TEMP 98.8; O2SAT 96
[2023-03-26 22:06] VITALS: O2SAT 97
[2023-03-27 07:30] VITALS: BP 128/76; TEMP 97.8; O2SAT 98
[2023-03-27 10:47] VITALS: O2SAT 100
[2023-03-27 17:06] VITALS: O2SAT 98
[2023-03-27 19:54] VITALS: BP 112/71; TEMP 97.9; O2SAT 96
[2023-03-27 22:26] VITALS: O2SAT 97
[2023-03-28 07:39] VITALS: BP 129/72; TEMP 98; O2SAT 100
[2023-03-28 10:05] VITALS: O2SAT 100
[2023-03-28 19:48] VITALS: BP 128/79; TEMP 98.4; O2SAT 96
[2023-03-28 23:15] VITALS: O2SAT 97
[2023-03-29 07:31] VITALS: BP 93/75; TEMP 98.3; O2SAT 99
[2023-03-29 10:27] VITALS: O2SAT 99
[2023-03-29 10:28] VITALS: O2SAT 98
[2023-03-29 19:31] VITALS: BP 103/65; TEMP 97.9; O2SAT 97
[2023-03-29 23:57] VITALS: O2SAT 96
[2023-03-30 07:33] VITALS: BP 109/63; TEMP 98.4; O2SAT 100
[2023-03-30 10:40] VITALS: O2SAT 98
[2023-03-30 15:40] VITALS: O2SAT 98
[2023-03-30 19:59] VITALS: BP 130/74; TEMP 97.7; O2SAT 99
[2023-03-30 23:19] VITALS: O2SAT 96
[2023-03-31 10:25] VITALS: O2SAT 99
[2023-03-31 11:16] VITALS: BP 98/67; TEMP 98; O2SAT 96
[2023-03-31 19:46] VITALS: BP 107/70; TEMP 97.9; O2SAT 99
[2023-03-31 23:46] VITALS: O2SAT 98
[2023-04-01 07:40] VITALS: BP 98/72; TEMP 97.2; O2SAT 92
[2023-04-01 10:22] VITALS: O2SAT 98
[2023-04-01 10:23] VITALS: O2SAT 98
[2023-04-01 20:04] VITALS: BP 121/72; TEMP 97.7; O2SAT 99
[2023-04-01 22:34] VITALS: O2SAT 98
[2023-04-02 07:47] VITALS: BP 117/68; TEMP 98.1; O2SAT 97
[2023-04-02 10:05] VITALS: O2SAT 98
[2023-04-02 20:10] VITALS: BP 118/83; TEMP 97.9; O2SAT 100
[2023-04-02 22:39] VITALS: O2SAT 99
[2023-04-03 08:02] VITALS: BP 120/77; TEMP 97.7; O2SAT 98
[2023-04-03 10:22] VITALS: O2SAT 95
[2023-04-03 10:23] VITALS: O2SAT 95
[2023-04-03 19:33] VITALS: BP 131/78; TEMP 98.9; O2SAT 95
[2023-04-03 22:49] VITALS: O2SAT 96
[2023-04-04 07:11] VITALS: BP 108/70; TEMP 97.7; O2SAT 99
[2023-04-04 10:16] VITALS: O2SAT 98
[2023-04-04 10:17] VITALS: O2SAT 98
[2023-04-04 20:17] VITALS: BP 130/72; TEMP 98.1; O2SAT 99
[2023-04-04 22:14] VITALS: O2SAT 100
[2023-04-04 22:15] VITALS: O2SAT 100
[2023-04-05 07:30] VITALS: BP 132/80; TEMP 98.6; O2SAT 100
[2023-04-05 10:39] VITALS: O2SAT 98
[2023-04-05 10:40] VITALS: O2SAT 98
[2023-04-05 19:39] VITALS: BP 116/71; TEMP 97.9; O2SAT 97
[2023-04-05 23:18] VITALS: O2SAT 97
[2023-04-05 23:19] VITALS: O2SAT 97
[2023-04-06 08:15] VITALS: BP 105/72; TEMP 97.7; O2SAT 98
[2023-04-06 10:12] VITALS: O2SAT 98
[2023-04-06 10:45] VITALS: RESP 15; O2SAT 99
[2023-04-06 19:22] VITALS: BP 109/76; TEMP 98.7; O2SAT 96
[2023-04-06 23:19] VITALS: O2SAT 96
[2023-04-07 08:46] VITALS: BP 118/68; TEMP 97.5; O2SAT 99
[2023-04-07 10:34] VITALS: O2SAT 98
[2023-04-07 18:54] VITALS: BP 107/69; TEMP 98.4; O2SAT 96
[2023-04-07 23:34] VITALS: O2SAT 97
[2023-04-08 07:43] VITALS: BP 115/72; TEMP 97.7; O2SAT 100
[2023-04-08 10:31] VITALS: O2SAT 98
[2023-04-08 20:03] VITALS: O2SAT 96
[2023-04-08 20:05] VITALS: BP 114/68; TEMP 97.5; O2SAT 95
[2023-04-08 22:18] VITALS: O2SAT 96
[2023-04-09 07:52] VITALS: BP 112/67; TEMP 97.7; O2SAT 97
[2023-04-09 10:11] VITALS: O2SAT 99
[2023-04-09 10:12] VITALS: O2SAT 99
[2023-04-09 19:24] VITALS: BP 101/66; TEMP 97.9; O2SAT 96
[2023-04-09 22:50] VITALS: O2SAT 97
[2023-04-10 07:34] VITALS: BP 107/74; TEMP 97.9; O2SAT 100
[2023-04-10 10:43] VITALS: O2SAT 100; O2SAT 99
[2023-04-10 19:17] VITALS: BP 112/61; TEMP 98.3; O2SAT 96
[2023-04-10 19:20] VITALS: BP 112/61; TEMP 98.3; O2SAT 96
[2023-04-10 22:57] VITALS: O2SAT 96
[2023-04-10 23:07] VITALS: O2SAT 96
[2023-04-11 08:26] VITALS: BP 116/71; TEMP 98.4; O2SAT 98
[2023-04-11 10:03] VITALS: O2SAT 96
[2023-04-11 20:10] VITALS: BP 110/75; TEMP 98.8; O2SAT 99
[2023-04-11 23:36] VITALS: O2SAT 96
[2023-04-11 23:37] VITALS: O2SAT 96
[2023-04-12 07:13] VITALS: BP 103/67; TEMP 98; O2SAT 98
[2023-04-12 10:50] VITALS: O2SAT 98
[2023-04-12 10:51] VITALS: O2SAT 98
[2023-04-12 20:19] VITALS: BP 103/67; TEMP 97.6; O2SAT 97
[2023-04-12 22:12] VITALS: O2SAT 97
[2023-04-12 22:13] VITALS: O2SAT 97
[2023-04-13 07:34] VITALS: BP 109/65; TEMP 97.7; O2SAT 100
[2023-04-13 10:16] VITALS: O2SAT 100
[2023-04-13 10:17] VITALS: O2SAT 100
[2023-04-13 19:00] VITALS: BP 103/63; TEMP 97.6; O2SAT 97
[2023-04-13] MEDS: MELOXICAM 7.5 MG TABLET GT PRN (23:31)
[2023-04-13 23:37] VITALS: O2SAT 100
[2023-04-14 07:17] VITALS: BP 109/70; TEMP 97.7; O2SAT 99
[2023-04-14 11:08] VITALS: O2SAT 98
[2023-04-14 11:09] VITALS: O2SAT 100
[2023-04-14 19:35] VITALS: BP 101/62; TEMP 97.3; O2SAT 95
[2023-04-14 22:36] VITALS: O2SAT 96
[2023-04-15 07:58] VITALS: BP 111/68; TEMP 97.6; O2SAT 98
[2023-04-15 10:26] VITALS: O2SAT 98
[2023-04-15 10:27] VITALS: O2SAT 98
[2023-04-15 20:00] VITALS: BP 116/69; TEMP 98.1; O2SAT 99
[2023-04-15 23:22] VITALS: O2SAT 96
[2023-04-15 23:23] VITALS: O2SAT 96
[2023-04-16 07:30] VITALS: BP 102/68; TEMP 97.5; O2SAT 98
[2023-04-16 10:38] VITALS: O2SAT 96; O2SAT 98
[2023-04-16 20:17] VITALS: BP 103/65; TEMP 98; O2SAT 99
[2023-04-16 22:47] VITALS: O2SAT 98
[2023-04-16 22:48] VITALS: O2SAT 98
[2023-04-17 07:36] VITALS: BP 112/74; TEMP 97.6; O2SAT 100
[2023-04-17 10:21] VITALS: O2SAT 100
[2023-04-17 19:56] VITALS: BP 112/62; TEMP 98.3; O2SAT 95
[2023-04-17 22:27] VITALS: O2SAT 96
[2023-04-17 22:38] VITALS: O2SAT 96
[2023-04-18 08:04] VITALS: BP 116/87; TEMP 98.4; O2SAT 99
[2023-04-18 10:42] VITALS: O2SAT 97
[2023-04-18 10:44] VITALS: O2SAT 97
[2023-04-18 20:00] VITALS: BP 119/68; TEMP 98.3; O2SAT 99
[2023-04-18 22:14] VITALS: O2SAT 97
[2023-04-18 22:15] VITALS: O2SAT 96
[2023-04-19 07:34] VITALS: BP 106/71; TEMP 97.7; O2SAT 97
[2023-04-19 10:48] VITALS: O2SAT 98
[2023-04-19 10:49] VITALS: O2SAT 98
[2023-04-19 23:27] VITALS: O2SAT 98
[2023-04-20 07:48] VITALS: BP 113/73; TEMP 98.1; O2SAT 98
[2023-04-20 10:28] VITALS: O2SAT 96
[2023-04-20 19:23] VITALS: BP 110/59; TEMP 97.9; O2SAT 95
[2023-04-20 23:11] VITALS: O2SAT 97
[2023-04-21 07:27] VITALS: BP 103/77; TEMP 97.3; O2SAT 94
[2023-04-21 10:40] VITALS: O2SAT 98; O2SAT 99
[2023-04-21 21:10] VITALS: BP 100/61; TEMP 97.5; O2SAT 96
[2023-04-21 23:58] VITALS: O2SAT 97
[2023-04-22 07:44] VITALS: BP 104/64; TEMP 97.7; O2SAT 95
[2023-04-22 10:10] VITALS: O2SAT 97
[2023-04-22 21:52] VITALS: BP 99/75; TEMP 98.6; O2SAT 97
[2023-04-22 21:56] VITALS: O2SAT 98
[2023-04-23 07:24] VITALS: BP 97/60; TEMP 97.6; O2SAT 96
[2023-04-23 10:28] VITALS: O2SAT 97; O2SAT 98
[2023-04-23 20:00] VITALS: BP 108/67; TEMP 98; O2SAT 99
[2023-04-23 23:21] VITALS: O2SAT 99
[2023-04-23 23:22] VITALS: O2SAT 99
[2023-04-24 10:03] VITALS: O2SAT 97
[2023-04-24 16:18] VITALS: BP 99/66; TEMP 98.1; O2SAT 97
[2023-04-24 20:00] VITALS: BP 117/66; TEMP 98.1; O2SAT 99
[2023-04-24 23:00] VITALS: O2SAT 98
[2023-04-24 23:06] VITALS: O2SAT 97
[2023-04-25 07:23] VITALS: BP 116/75; TEMP 98; O2SAT 96
[2023-04-25 10:37] VITALS: O2SAT 96
[2023-04-25 20:17] VITALS: BP 147/71; TEMP 98; O2SAT 99
[2023-04-25 23:20] VITALS: O2SAT 99
[2023-04-26 07:45] VITALS: BP 112/73; TEMP 97.7; O2SAT 96
[2023-04-26 08:48] VITALS: O2SAT 95
[2023-04-26 11:56] VITALS: O2SAT 98
[2023-04-26 19:03] VITALS: BP 114/72; TEMP 98.1; O2SAT 99
[2023-04-27 01:11] VITALS: O2SAT 95
[2023-04-27 07:19] VITALS: BP 116/71; TEMP 97.7; O2SAT 97
[2023-04-27 10:30] VITALS: O2SAT 97
[2023-04-27 10:31] VITALS: O2SAT 97
[2023-04-27 19:19] VITALS: BP 118/75; TEMP 98.1; O2SAT 99
[2023-04-28] VITALS (7 sets, daily range): BP systolic 105–112; BP diastolic 60–68; TEMP 97.3–98.1; O2SAT 96–100
[2023-04-29 10:27] VITALS: O2SAT 96
[2023-04-29 10:28] VITALS: O2SAT 98
[2023-04-29 20:03] VITALS: BP 113/68; TEMP 98.1; O2SAT 98
[2023-04-29 22:24] VITALS: O2SAT 99
[2023-04-29 22:28] VITALS: O2SAT 99
[2023-04-30 07:47] VITALS: BP 110/73; TEMP 99; O2SAT 99
[2023-04-30 10:18] VITALS: O2SAT 98
[2023-04-30 10:20] VITALS: O2SAT 98
[2023-04-30 23:21] VITALS: BP 114/75; TEMP 97.5; O2SAT 97
[2023-05-01 02:27] VITALS: O2SAT 97
[2023-05-01 08:39] VITALS: BP 124/76; TEMP 97.5; O2SAT 96
[2023-05-01 10:21] VITALS: O2SAT 98
[2023-05-01 20:00] VITALS: BP 118/68; TEMP 98.6; O2SAT 100
[2023-05-01 23:09] VITALS: O2SAT 100
[2023-05-01 23:12] VITALS: O2SAT 99
[2023-05-02 07:15] VITALS: BP 113/72; TEMP 98; O2SAT 98
[2023-05-02 10:36] VITALS: O2SAT 97
[2023-05-02 19:54] VITALS: BP 107/62; TEMP 98.3; O2SAT 99
[2023-05-02 22:00] VITALS: O2SAT 97
[2023-05-02] MEDS: ACETAMINOPHEN 650 MG/20 ML UDC- SA PATIENTS-PAIN ONLY GT PRN (23:43)
[2023-05-02 23:51] VITALS: O2SAT 97
[2023-05-03 07:16] VITALS: BP 102/64; TEMP 97.7; O2SAT 100
[2023-05-03 10:10] VITALS: O2SAT 98
[2023-05-03 14:14] LABS: BASOPHILS # (AUTO) 0.1 K/uL (0.0-0.2); BASOPHILS % (AUTO) 0.5 % (0.0-2.0); EOSINOPHILS # (AUTO) 0.2 K/uL (0.0-0.7); EOSINOPHILS % (AUTO) 2.4 % (0.0-6.0); HEMATOCRIT 44 % (39-51); HEMOGLOBIN 13.9 g/dL (13.5-17.5); LYMPHOCYTES # (AUTO) 2.5 K/uL (0.8-4.8); LYMPHOCYTES % (AUTO) 25.7 % (20.0-44.0); MEAN CORPUSCULAR HEMOGLOBIN 29 PG (26.0-33.0); MEAN CORPUSCULAR HGB CONC 31 g/dl (31.0-36.0); MEAN CORPUSCULAR VOLUME 91 fL (80-96); MONOCYTES # (AUTO) 0.8 K/uL (0.1-1.30); MONOCYTES % (AUTO) 8.4 % (2.0-12.0); NEUTROPHILS # (AUTO) 6.1 K/uL (1.8-8.9); PLATELET COUNT (AUTO) 192 K/uL (150-450); RED BLOOD CELL COUNT(AUTO) 4.85 MIL/uL (4.5-6.0); RED CELL DISTRIBUTION WIDTH 18.9 % (11.5-15.0); WHITE BLOOD COUNT (AUTO) 9.6 K/uL (4.3-11.0)
[2023-05-03 14:23] LABS: CREATININE 0.3 mg/dL (0.6-1.3); POTASSIUM 5.9 mmol/L (3.5-5.1)
[2023-05-03 14:39] LABS: THYROID STIMULATING HORMONE 0.689 uIU/mL (0.358-3.74)
[2023-05-03 19:47] LABS: APPEARANCE,URINE CLEAR (CLEAR); BILIRUBIN,URINE NEGATIVE (NEGATIVE); BLOOD, URINE NEGATIVE Ery/uL (NEGATIVE); COLOR,URINE YELLOW (YELLOW); KETONES,URINE NEGATIVE (NEGATIVE); LEUKOCYTE ESTERASE ,URINE 1+ (NEGATIVE); NITRITE, URINE POSITIVE (NEGATIVE); PROTEIN,URINE NEGATIVE (NEGATIVE); UGLUCOSE NEGATIVE (NEGATIVE); UROBILINOGEN,URINE 0.2 EU/dL (0.2)
[2023-05-03 19:56] VITALS: BP 99/73; TEMP 98.1; O2SAT 97
[2023-05-03 19:56] LABS: ADD URINE CULTURE YES; BACTERIA,URINE 2+ /HPF (None Seen); CALCIUM OXALATE CRYSTALS,UR Few /HPF (None Seen); RBC,URINE 0-2 /HPF (0-2); SQUAMOUS EPITHELIAL CELL,UR 0-2 /HPF (None Seen)
[2023-05-03 22:35] VITALS: O2SAT 97
[2023-05-04 07:40] VITALS: BP 101/69; TEMP 97.5; O2SAT 98
[2023-05-04 09:03] LABS: CALCIUM, SERUM 9.7 mg/dL (8.5-10.1); CREATININE 0.2 mg/dL (0.6-1.3); POTASSIUM 5.1 mmol/L (3.5-5.1)
[2023-05-04 10:09] VITALS: O2SAT 97; O2SAT 98
[2023-05-04] MEDS: CARVEDILOL 3.125 MG TABLET PO ONE (11:00)
[2023-05-04 13:54] VITALS: BP 97/66
[2023-05-04 19:47] VITALS: BP 104/64; TEMP 98.1; O2SAT 99
[2023-05-04] MEDS: CARVEDILOL 3.125 MG TABLET PO SCH (20:16)
[2023-05-04 23:28] VITALS: O2SAT 97
[2023-05-05] VITALS (7 sets, daily range): BP systolic 102–107; BP diastolic 60–67; RESP 14; TEMP 98.1; O2SAT 97–99
[2023-05-06 07:56] VITALS: BP 111/64; TEMP 97.9; O2SAT 93
[2023-05-06 10:09] VITALS: O2SAT 97
[2023-05-06 20:03] VITALS: BP 95/57; TEMP 99; O2SAT 95
[2023-05-06 23:00] VITALS: O2SAT 95
[2023-05-07 07:09] VITALS: BP 103/60; TEMP 98.8; O2SAT 95
[2023-05-07 14:24] VITALS: O2SAT 96
[2023-05-07 21:25] VITALS: BP 98/62; TEMP 98.6; O2SAT 95
[2023-05-07 23:22] VITALS: O2SAT 96
[2023-05-07 23:47] VITALS: O2SAT 96
[2023-05-08 07:22] VITALS: BP 100/66; TEMP 99; O2SAT 97
[2023-05-08 07:45] LABS: CALCIUM, SERUM 9.5 mg/dL (8.5-10.1); CREATININE 0.2 mg/dL (0.6-1.3)
[2023-05-08 10:43] VITALS: O2SAT 97
[2023-05-08 16:51] VITALS: O2SAT 97
[2023-05-08 20:36] VITALS: BP 106/73; TEMP 99.2; O2SAT 98
[2023-05-08 22:30] VITALS: O2SAT 97
[2023-05-08 22:31] VITALS: O2SAT 97
[2023-05-09 08:08] VITALS: BP 106/63; TEMP 99; O2SAT 100
[2023-05-09 10:09] VITALS: O2SAT 98
[2023-05-09 10:10] VITALS: O2SAT 98
[2023-05-09 19:47] VITALS: BP 102/62; TEMP 98.1; O2SAT 97
[2023-05-09 23:48] VITALS: O2SAT 97
[2023-05-10 07:00] VITALS: BP 103/68; TEMP 97.5; O2SAT 98
[2023-05-10 10:10] VITALS: O2SAT 97
[2023-05-10 19:16] VITALS: BP 107/60; TEMP 98.1; O2SAT 98
[2023-05-10] MEDS: DICLOFENAC TOPICAL 100 GM TUBE TP PRN (20:07)
[2023-05-10 23:28] VITALS: O2SAT 96
[2023-05-10 23:29] VITALS: O2SAT 97
[2023-05-11 07:38] VITALS: BP 100/62; TEMP 98.4; O2SAT 98
[2023-05-11 10:23] VITALS: O2SAT 98
[2023-05-11 10:24] VITALS: O2SAT 98
[2023-05-11 19:32] VITALS: BP 96/61; TEMP 98.6; O2SAT 96
[2023-05-11 23:21] VITALS: O2SAT 97
[2023-05-12 07:37] VITALS: BP 101/69; TEMP 97.9; O2SAT 100
[2023-05-12 10:09] VITALS: O2SAT 97
[2023-05-12 20:01] VITALS: BP 104/65; TEMP 97.5; O2SAT 96
[2023-05-12 23:08] VITALS: O2SAT 96
[2023-05-12 23:27] VITALS: O2SAT 96
[2023-05-13 08:37] VITALS: BP 94/54; TEMP 98; O2SAT 97
[2023-05-13 10:53] VITALS: O2SAT 95
[2023-05-13 11:03] VITALS: O2SAT 95
[2023-05-13 19:33] VITALS: BP 98/57; TEMP 98.1; O2SAT 95
[2023-05-13 23:29] VITALS: O2SAT 96
[2023-05-13 23:30] VITALS: O2SAT 95
[2023-05-14 07:50] VITALS: BP 104/64; TEMP 98.8; O2SAT 98
[2023-05-14 08:04] VITALS: O2SAT 96
[2023-05-14 11:24] VITALS: O2SAT 95
[2023-05-14 11:31] VITALS: O2SAT 96
[2023-05-14 19:46] VITALS: BP 103/59; TEMP 99; O2SAT 97
[2023-05-14 23:21] VITALS: O2SAT 99
[2023-05-15 07:32] VITALS: BP 101/66; TEMP 99.1; O2SAT 98
[2023-05-15 10:21] VITALS: O2SAT 97; O2SAT 98
[2023-05-15 19:56] VITALS: BP 98/62; TEMP 97.3; O2SAT 97
[2023-05-16 01:20] VITALS: O2SAT 98
[2023-05-16 07:36] VITALS: BP 107/66; TEMP 99.1; O2SAT 99
[2023-05-16 10:45] VITALS: O2SAT 99
[2023-05-16 10:46] VITALS: O2SAT 99
[2023-05-16 19:30] VITALS: BP 103/62; TEMP 97.9; O2SAT 96
[2023-05-16 22:23] VITALS: O2SAT 97
[2023-05-17 07:29] VITALS: BP 101/54; TEMP 98.1; O2SAT 97
[2023-05-17 10:20] VITALS: O2SAT 97
[2023-05-17 21:09] VITALS: BP 99/64; TEMP 97.7; O2SAT 98
[2023-05-17 23:22] VITALS: O2SAT 97
[2023-05-18 08:10] VITALS: BP 100/63; TEMP 97.9; O2SAT 96
[2023-05-18 10:32] VITALS: O2SAT 97
[2023-05-18 19:46] VITALS: BP 95/55; TEMP 98.4; O2SAT 98
[2023-05-19 01:44] VITALS: O2SAT 98
[2023-05-19 09:01] VITALS: BP 104/63; TEMP 98.1; O2SAT 99
[2023-05-19 09:19] VITALS: O2SAT 99
[2023-05-19 11:44] VITALS: O2SAT 98
[2023-05-19 14:57] VITALS: O2SAT 99
[2023-05-19 19:53] VITALS: BP 101/69; TEMP 97.9; O2SAT 98
[2023-05-20 01:54] VITALS: O2SAT 98
[2023-05-20 07:56] VITALS: BP 121/69; TEMP 97.7; O2SAT 99
[2023-05-20 10:02] VITALS: O2SAT 97
[2023-05-20 10:03] VITALS: O2SAT 97
[2023-05-20 19:08] VITALS: BP 97/60; TEMP 98.1; O2SAT 98
[2023-05-20 23:41] VITALS: O2SAT 98
[2023-05-21 07:34] VITALS: BP 119/68; TEMP 98; O2SAT 98
[2023-05-21 10:02] VITALS: O2SAT 97
[2023-05-21 19:38] VITALS: BP 99/59; TEMP 97.8; O2SAT 95
[2023-05-21 22:19] VITALS: O2SAT 96
[2023-05-21 22:20] VITALS: O2SAT 95
[2023-05-22 07:09] VITALS: BP 108/60; TEMP 98.2; O2SAT 100
[2023-05-22 10:18] VITALS: O2SAT 96
[2023-05-22 18:59] VITALS: BP 99/60; TEMP 98.1; O2SAT 96
[2023-05-22 23:10] VITALS: O2SAT 97
[2023-05-22 23:12] VITALS: O2SAT 96
[2023-05-23 07:06] VITALS: BP 104/65; TEMP 97.8; O2SAT 98
[2023-05-23 10:02] VITALS: O2SAT 97
[2023-05-23 10:03] VITALS: O2SAT 97
[2023-05-23 21:23] VITALS: BP 107/61; TEMP 98.8; O2SAT 96
[2023-05-24 00:01] VITALS: O2SAT 99
[2023-05-24 07:32] VITALS: BP 116/76; TEMP 97.9; O2SAT 98
[2023-05-24 10:02] VITALS: O2SAT 98
[2023-05-24 10:03] VITALS: O2SAT 98
[2023-05-24 19:36] VITALS: BP 106/60; TEMP 98.4; O2SAT 98
[2023-05-25 00:03] VITALS: O2SAT 98
[2023-05-25 00:04] VITALS: O2SAT 97
[2023-05-25 08:02] VITALS: BP 98/60; TEMP 98.1; O2SAT 98
[2023-05-25 10:05] VITALS: O2SAT 99
[2023-05-25 21:21] VITALS: BP 104/55; TEMP 97.4; O2SAT 98
[2023-05-25 22:36] VITALS: O2SAT 97
[2023-05-26 07:31] VITALS: BP 131/79; TEMP 97.7; O2SAT 95
[2023-05-26 10:17] VITALS: O2SAT 96
[2023-05-26 10:18] VITALS: O2SAT 96
[2023-05-26 21:21] VITALS: BP 116/72; TEMP 97.2; O2SAT 99
[2023-05-26 22:38] VITALS: O2SAT 96
[2023-05-26 22:39] VITALS: O2SAT 96
[2023-05-27 10:28] VITALS: O2SAT 97
[2023-05-27 11:38] VITALS: O2SAT 99
[2023-05-27 15:40] VITALS: BP 124/76; TEMP 97.7; O2SAT 98
[2023-05-27 20:00] VITALS: BP 104/58; TEMP 98.1; O2SAT 99
[2023-05-27 23:32] VITALS: O2SAT 95
[2023-05-28 09:00] VITALS: O2SAT 96
[2023-05-28 10:31] VITALS: O2SAT 96
[2023-05-28 20:00] VITALS: BP 113/68; TEMP 98.1; O2SAT 99
[2023-05-28 22:20] VITALS: O2SAT 95
[2023-05-28 22:21] VITALS: O2SAT 95
[2023-05-29 07:54] VITALS: BP 113/66; TEMP 97.5; O2SAT 98
[2023-05-29 09:00] VITALS: O2SAT 98
[2023-05-29 11:05] VITALS: O2SAT 98
[2023-05-29 20:01] VITALS: BP 102/61; TEMP 98.1; O2SAT 100
[2023-05-29 22:36] VITALS: O2SAT 99
[2023-05-29 22:38] VITALS: O2SAT 99
[2023-05-30 07:24] VITALS: BP 101/63; TEMP 98.3; O2SAT 98
[2023-05-30 10:11] VITALS: O2SAT 96
[2023-05-30 10:12] VITALS: O2SAT 96
[2023-05-30 20:00] VITALS: BP 107/60; TEMP 97.8; O2SAT 99
[2023-05-30 23:56] VITALS: O2SAT 98
[2023-05-30 23:57] VITALS: O2SAT 98
[2023-05-31 07:46] VITALS: BP 107/60; TEMP 98.5; O2SAT 99
[2023-05-31 10:25] VITALS: O2SAT 98
[2023-05-31 19:20] VITALS: BP 100/55; TEMP 97.8; O2SAT 98
[2023-05-31 22:22] VITALS: O2SAT 96; O2SAT 98
[2023-06-01 08:03] VITALS: BP 95/67; TEMP 97.7; O2SAT 99
[2023-06-01 10:38] VITALS: O2SAT 98
[2023-06-01 10:39] VITALS: O2SAT 97
[2023-06-01 20:37] VITALS: BP 120/77; TEMP 98.6; O2SAT 98
[2023-06-01 23:15] VITALS: O2SAT 95
[2023-06-02 10:04] VITALS: O2SAT 96
[2023-06-02 10:56] VITALS: O2SAT 96
[2023-06-02 19:40] VITALS: BP 114/72; TEMP 98.2; O2SAT 98
[2023-06-02 23:24] VITALS: O2SAT 96
[2023-06-03 08:03] VITALS: BP 117/70; TEMP 98; O2SAT 98
[2023-06-03 10:04] VITALS: O2SAT 98
[2023-06-03 11:07] VITALS: O2SAT 98
[2023-06-03 20:01] VITALS: BP 98/53; TEMP 97.7; O2SAT 96
[2023-06-03 23:13] VITALS: O2SAT 95
[2023-06-04] VITALS (7 sets, daily range): BP systolic 112–126; BP diastolic 61–68; RESP 14; TEMP 97.8–98.1; O2SAT 95–98
[2023-06-05 08:04] VITALS: BP 110/65; TEMP 96.8; O2SAT 99
[2023-06-05 10:13] VITALS: O2SAT 97
[2023-06-05 20:02] VITALS: BP 108/61; TEMP 97.5; O2SAT 100
[2023-06-05 23:14] VITALS: O2SAT 100
[2023-06-06 07:51] VITALS: BP 102/55; TEMP 98.8; O2SAT 98
[2023-06-06 10:39] VITALS: O2SAT 98
[2023-06-06 11:30] VITALS: O2SAT 96
[2023-06-06] MEDS: JEVITY 1.2 CAL 1,000 ML BOTTLE JT PRN (15:09)
[2023-06-06 20:00] VITALS: BP 104/64; TEMP 98.3; O2SAT 99
[2023-06-06 22:05] VITALS: O2SAT 96
[2023-06-06 22:06] VITALS: O2SAT 96
[2023-06-07 07:25] VITALS: BP 109/66; TEMP 98.2; O2SAT 99
[2023-06-07] MEDS: NYSTATIN CREAM 15 GM TUBE TP SCH (09:47)
[2023-06-07] MEDS: TRIAMCINOLONE ACETONIDE 0.1% CR 15 GM TUBE TP SCH (09:47)
[2023-06-07 10:02] VITALS: O2SAT 97; O2SAT 98
[2023-06-07 19:02] VITALS: BP 99/58; TEMP 98.1; O2SAT 98
[2023-06-07 23:15] VITALS: O2SAT 96
[2023-06-07 23:16] VITALS: O2SAT 96
[2023-06-08 07:35] VITALS: BP 106/60; TEMP 97.7; O2SAT 98
[2023-06-08 11:36] VITALS: O2SAT 99
[2023-06-08 11:37] VITALS: O2SAT 99
[2023-06-08 19:07] VITALS: BP 117/70; TEMP 97.7; O2SAT 100
[2023-06-09] VITALS (8 sets, daily range): BP systolic 112–138; BP diastolic 68–75; TEMP 97.9–98; O2SAT 96–100
[2023-06-10 08:28] VITALS: BP 108/64; TEMP 98.2; O2SAT 98
[2023-06-10 10:04] VITALS: O2SAT 98
[2023-06-10 10:40] VITALS: O2SAT 98
[2023-06-10 20:10] VITALS: BP 98/55; TEMP 98.1; O2SAT 99
[2023-06-11] VITALS (7 sets, daily range): BP systolic 112; BP diastolic 70; TEMP 97.7; O2SAT 95–100
[2023-06-12 08:25] VITALS: BP 107/70; TEMP 97.5; O2SAT 99
[2023-06-12 10:50] VITALS: O2SAT 98
[2023-06-12 10:51] VITALS: O2SAT 98
[2023-06-12 20:15] VITALS: BP 112/67; TEMP 98.4; O2SAT 98
[2023-06-12 22:34] VITALS: O2SAT 99
[2023-06-12 22:37] VITALS: O2SAT 99
[2023-06-13 08:11] VITALS: BP 112/76; TEMP 97.5; O2SAT 97
[2023-06-13 15:07] VITALS: O2SAT 96
[2023-06-13 15:46] VITALS: O2SAT 99
[2023-06-13 20:00] VITALS: BP 114/67; TEMP 98.3; O2SAT 99
[2023-06-13 22:03] VITALS: O2SAT 97
[2023-06-14 07:11] VITALS: BP 107/64; TEMP 97.7; O2SAT 98
[2023-06-14 10:05] VITALS: O2SAT 98
[2023-06-14 10:06] VITALS: O2SAT 98
[2023-06-14 19:14] VITALS: BP 107/63; TEMP 98.1; O2SAT 98
[2023-06-14 23:50] VITALS: O2SAT 100
[2023-06-15 07:42] VITALS: BP 94/60; TEMP 98.8; O2SAT 98
[2023-06-15 10:02] VITALS: O2SAT 98
[2023-06-15 19:00] VITALS: BP 110/66; TEMP 97.9; O2SAT 98
[2023-06-15 23:16] VITALS: O2SAT 99
[2023-06-16 08:04] VITALS: BP 115/76; TEMP 97.7; O2SAT 98
[2023-06-16 08:59] VITALS: BP 110/66; TEMP 97.9; O2SAT 98
[2023-06-16 10:34] VITALS: O2SAT 97
[2023-06-16 19:01] VITALS: BP 103/66; TEMP 97.9; O2SAT 98
[2023-06-16 23:26] VITALS: O2SAT 99
[2023-06-17 07:43] VITALS: BP 106/56; TEMP 98.1; O2SAT 96
[2023-06-17 10:17] VITALS: O2SAT 98
[2023-06-17 10:18] VITALS: O2SAT 98
[2023-06-17 19:05] VITALS: BP 108/65; TEMP 98.1; O2SAT 98
[2023-06-17 23:19] VITALS: O2SAT 95
[2023-06-18 07:37] VITALS: BP 117/76; TEMP 97.7; O2SAT 98
[2023-06-18 10:37] VITALS: O2SAT 98
[2023-06-18 10:38] VITALS: O2SAT 98
[2023-06-18 19:57] VITALS: BP 115/69; TEMP 98.1; O2SAT 98
[2023-06-18 22:04] VITALS: O2SAT 96
[2023-06-18 22:06] VITALS: O2SAT 96
[2023-06-19 07:58] VITALS: BP 127/75; TEMP 98.6; O2SAT 97
[2023-06-19 10:05] VITALS: O2SAT 100
[2023-06-19 19:58] VITALS: BP 114/69; TEMP 97.9; O2SAT 96
[2023-06-19 22:49] VITALS: O2SAT 96
[2023-06-20 08:03] VITALS: BP 114/67; TEMP 98.2; O2SAT 99
[2023-06-20 10:03] VITALS: O2SAT 98
[2023-06-20 20:00] VITALS: BP 117/67; TEMP 97.7; O2SAT 98
[2023-06-20 23:11] VITALS: O2SAT 100
[2023-06-20 23:12] VITALS: O2SAT 100
[2023-06-21 07:27] VITALS: BP 109/72; TEMP 98.1; O2SAT 96
[2023-06-21 10:51] VITALS: O2SAT 98
[2023-06-21 10:52] VITALS: O2SAT 98
[2023-06-21 21:10] VITALS: BP 110/61; TEMP 97.7; O2SAT 96
[2023-06-21 22:12] VITALS: O2SAT 98
[2023-06-21 22:13] VITALS: O2SAT 98
[2023-06-22 07:48] VITALS: BP 112/59; TEMP 98.1; O2SAT 95
[2023-06-22 10:14] VITALS: O2SAT 96
[2023-06-22 10:33] VITALS: O2SAT 96
[2023-06-22 19:08] VITALS: BP 104/57; TEMP 97.7; O2SAT 97
[2023-06-22 23:39] VITALS: O2SAT 98
[2023-06-23 07:27] VITALS: BP 117/73; TEMP 98.8; O2SAT 96
[2023-06-23 10:04] VITALS: O2SAT 96
[2023-06-23 13:59] VITALS: O2SAT 96
[2023-06-23 19:52] VITALS: BP 107/75; TEMP 98.2; O2SAT 97
[2023-06-23 22:03] VITALS: O2SAT 97
[2023-06-23 22:11] VITALS: O2SAT 96
[2023-06-24 10:03] VITALS: O2SAT 97
[2023-06-24 20:00] VITALS: BP 112/69; TEMP 97.5; O2SAT 99
[2023-06-24 22:52] VITALS: O2SAT 98
[2023-06-25 08:48] VITALS: BP 109/70; TEMP 96.5; O2SAT 99
[2023-06-25 10:01] VITALS: O2SAT 99
[2023-06-25 10:02] VITALS: O2SAT 99
[2023-06-25 20:00] VITALS: BP 110/75; TEMP 98.4; O2SAT 99
[2023-06-25 22:12] VITALS: O2SAT 98
[2023-06-25 22:19] VITALS: O2SAT 98
[2023-06-26 08:47] VITALS: BP 107/70; TEMP 98.3; O2SAT 99
[2023-06-26 10:04] VITALS: O2SAT 98
[2023-06-26 10:51] VITALS: O2SAT 99
[2023-06-26 20:54] VITALS: BP 112/62; TEMP 98.1; O2SAT 98
[2023-06-26 22:26] VITALS: O2SAT 95
[2023-06-27 07:16] VITALS: BP 101/68; TEMP 98.4; O2SAT 98
[2023-06-27 11:14] VITALS: O2SAT 96
[2023-06-27 11:15] VITALS: O2SAT 96
[2023-06-27 20:00] VITALS: BP 102/65; TEMP 98.4; O2SAT 99
[2023-06-27 22:13] VITALS: O2SAT 96
[2023-06-27 22:14] VITALS: O2SAT 96
[2023-06-28 07:27] VITALS: BP 102/69; TEMP 97.8; O2SAT 96
[2023-06-28 10:05] VITALS: O2SAT 96
[2023-06-28 20:01] VITALS: BP 109/62; TEMP 98.2; O2SAT 94
[2023-06-28 23:41] VITALS: O2SAT 96
[2023-06-29 07:46] VITALS: BP 121/67; TEMP 97.8; O2SAT 97
[2023-06-29 10:11] VITALS: O2SAT 96
[2023-06-29 10:12] VITALS: O2SAT 97
[2023-06-29 19:43] VITALS: BP 110/57; TEMP 98.3; O2SAT 97
[2023-06-29 23:29] VITALS: O2SAT 97
[2023-06-29 23:30] VITALS: O2SAT 97
[2023-06-30 07:53] VITALS: BP 112/68; TEMP 97.5; O2SAT 96
[2023-06-30 10:21] VITALS: O2SAT 98
[2023-06-30 10:22] VITALS: O2SAT 98
[2023-06-30 19:22] VITALS: BP 102/59; TEMP 98.1; O2SAT 97
[2023-06-30 22:24] VITALS: O2SAT 97
[2023-07-01 07:41] VITALS: BP 97/55; TEMP 97.6; O2SAT 94
[2023-07-01 11:59] VITALS: O2SAT 93
[2023-07-01 12:00] VITALS: O2SAT 93
[2023-07-01 19:59] VITALS: BP 112/73; TEMP 97.9; O2SAT 97
[2023-07-01 23:39] VITALS: O2SAT 97
[2023-07-02 07:38] VITALS: BP 112/69; TEMP 97.7; O2SAT 98
[2023-07-02 14:47] VITALS: O2SAT 93
[2023-07-02 14:48] VITALS: O2SAT 93
[2023-07-02 19:42] VITALS: BP 102/73; TEMP 97.8; O2SAT 98
[2023-07-02 23:07] VITALS: O2SAT 98
[2023-07-02 23:09] VITALS: O2SAT 98
[2023-07-03 08:00] VITALS: BP 97/64; TEMP 98.1; O2SAT 96
[2023-07-03 10:18] VITALS: O2SAT 97; O2SAT 98
[2023-07-03 19:40] VITALS: BP 104/61; TEMP 98.4; O2SAT 100
[2023-07-03 23:46] VITALS: O2SAT 98
[2023-07-04 07:38] VITALS: BP 101/63; TEMP 97.3; O2SAT 100
[2023-07-04 10:05] VITALS: O2SAT 98
[2023-07-04 11:00] VITALS: O2SAT 98
[2023-07-04 20:50] VITALS: BP 101/62; TEMP 98.4; O2SAT 94
[2023-07-04 23:30] VITALS: O2SAT 95
[2023-07-05 07:37] VITALS: BP 98/67; TEMP 97.3; O2SAT 100
[2023-07-05 10:17] VITALS: RESP 14; O2SAT 96; O2SAT 99
[2023-07-05 19:23] VITALS: BP 109/70; TEMP 99.1; O2SAT 100
[2023-07-05 23:16] VITALS: O2SAT 95
[2023-07-06 07:40] VITALS: BP 106/68; TEMP 98.3; O2SAT 95
[2023-07-06 10:21] VITALS: O2SAT 95
[2023-07-06 13:49] VITALS: O2SAT 95
[2023-07-06 20:04] VITALS: BP 110/70; TEMP 98.2; O2SAT 98
[2023-07-06 23:40] VITALS: O2SAT 96
[2023-07-07] VITALS (7 sets, daily range): BP systolic 103–104; BP diastolic 64–65; TEMP 98.2; O2SAT 92–98
[2023-07-08 07:10] VITALS: BP 108/69; TEMP 98.8; O2SAT 98
[2023-07-08 10:15] VITALS: O2SAT 98; O2SAT 99
[2023-07-08 20:00] VITALS: BP 107/63; TEMP 98.3; O2SAT 99
[2023-07-08 22:06] VITALS: O2SAT 97
[2023-07-09 09:07] VITALS: BP 99/58; TEMP 97.7; O2SAT 96
[2023-07-09 10:04] VITALS: O2SAT 96
[2023-07-09 10:48] VITALS: O2SAT 96
[2023-07-09 20:00] VITALS: BP 120/66; TEMP 98.1; O2SAT 99
[2023-07-09 23:19] VITALS: O2SAT 99
[2023-07-09 23:20] VITALS: O2SAT 99
[2023-07-10 08:42] VITALS: BP 158/85; TEMP 98.3; O2SAT 96
[2023-07-10 10:20] VITALS: O2SAT 98
[2023-07-10 14:46] VITALS: O2SAT 97
[2023-07-10 19:59] VITALS: BP 114/70; TEMP 97.5; O2SAT 97
[2023-07-10 22:10] VITALS: O2SAT 95
[2023-07-10 22:11] VITALS: O2SAT 95
[2023-07-11 12:13] VITALS: O2SAT 98
[2023-07-11 19:57] VITALS: BP 98/57; TEMP 97.5; O2SAT 98
[2023-07-11 22:10] VITALS: O2SAT 97
[2023-07-11 22:12] VITALS: O2SAT 97
[2023-07-12 10:15] VITALS: O2SAT 96
[2023-07-12 10:16] VITALS: O2SAT 97
[2023-07-12 16:24] VITALS: BP 121/86; TEMP 97.2; O2SAT 99
[2023-07-12 20:22] VITALS: BP 105/58; TEMP 98.2; O2SAT 96
[2023-07-12] MEDS: ZINC OXIDE 56.7 GM TUBE TP SCH (20:39)
[2023-07-12 22:37] VITALS: O2SAT 96
[2023-07-12 22:38] VITALS: O2SAT 96
[2023-07-13 07:22] VITALS: BP 99/57; TEMP 98.1; O2SAT 95
[2023-07-13 10:11] VITALS: O2SAT 96
[2023-07-13 19:19] VITALS: BP 98/55; TEMP 97.9; O2SAT 97
[2023-07-13 23:17] VITALS: O2SAT 97
[2023-07-14 07:54] VITALS: BP 108/76; TEMP 98.2; O2SAT 97
[2023-07-14 10:35] VITALS: O2SAT 96
[2023-07-14 19:19] VITALS: BP 100/64; TEMP 97.9; O2SAT 95
[2023-07-14 23:44] VITALS: O2SAT 96
[2023-07-15 07:35] VITALS: BP 106/58; TEMP 97.3; O2SAT 99
[2023-07-15 08:12] VITALS: BP 99/54; TEMP 98; O2SAT 94
[2023-07-15 10:18] VITALS: O2SAT 95
[2023-07-15 20:31] VITALS: BP 99/58; TEMP 98.2; O2SAT 98
[2023-07-15 23:30] VITALS: O2SAT 97
[2023-07-15 23:33] VITALS: O2SAT 97
[2023-07-16 07:48] VITALS: BP 98/60; TEMP 98.2; O2SAT 94
[2023-07-16 10:02] VITALS: O2SAT 96
[2023-07-16 20:00] VITALS: BP 115/64; TEMP 98.4; O2SAT 99
[2023-07-16 23:04] VITALS: O2SAT 96; O2SAT 98
[2023-07-17 06:55] VITALS: BP 130/77; TEMP 98; O2SAT 96
[2023-07-17 10:04] VITALS: O2SAT 96
[2023-07-17 10:54] VITALS: O2SAT 96
[2023-07-17 20:00] VITALS: BP 115/64; TEMP 98.4; O2SAT 99
[2023-07-17 22:01] VITALS: O2SAT 96
[2023-07-18 07:53] VITALS: BP 112/64; TEMP 98.3; O2SAT 98
[2023-07-18 08:09] VITALS: O2SAT 97
[2023-07-18 10:05] VITALS: O2SAT 97
[2023-07-18 20:00] VITALS: BP 102/70; TEMP 98; O2SAT 99
[2023-07-18 22:03] VITALS: O2SAT 96; O2SAT 97
[2023-07-19 10:04] VITALS: O2SAT 96
[2023-07-19 10:07] VITALS: BP 121/74; TEMP 97.8; O2SAT 94
[2023-07-19 12:07] VITALS: O2SAT 98
[2023-07-19 19:20] VITALS: BP 109/68; TEMP 97.5; O2SAT 97
[2023-07-19 23:34] VITALS: O2SAT 95
[2023-07-20 07:43] VITALS: BP 111/77; TEMP 97.7; O2SAT 98
[2023-07-20 10:26] VITALS: O2SAT 96; O2SAT 98
[2023-07-20 19:42] VITALS: BP 106/69; TEMP 97.6; O2SAT 95
[2023-07-20 23:14] VITALS: O2SAT 99
[2023-07-21 07:36] VITALS: BP 136/80; TEMP 98.6; O2SAT 100
[2023-07-21 10:03] VITALS: O2SAT 99
[2023-07-21 19:07] VITALS: BP 112/58; TEMP 97.4; O2SAT 96
[2023-07-21 22:51] VITALS: O2SAT 95; O2SAT 96
[2023-07-22 07:53] VITALS: BP 106/66; TEMP 97.9; O2SAT 100
[2023-07-22 10:04] VITALS: O2SAT 98
[2023-07-22 10:30] VITALS: BP 106/66; TEMP 97.9; O2SAT 100
[2023-07-22 11:35] VITALS: O2SAT 97
[2023-07-22 20:00] VITALS: BP 107/76; TEMP 97.5; O2SAT 98
[2023-07-22 22:18] VITALS: O2SAT 96
[2023-07-23 07:31] VITALS: BP 115/81; TEMP 98; O2SAT 98
[2023-07-23 10:00] VITALS: O2SAT 98
[2023-07-23 10:48] VITALS: O2SAT 98
[2023-07-23 20:00] VITALS: BP 106/84; TEMP 98; O2SAT 99
[2023-07-23] MEDS: BACI/NEOM/POLY B OINT PKT 1 UDPKT PACKET TP SCH (20:49)
[2023-07-23 23:40] VITALS: O2SAT 96
[2023-07-23 23:41] VITALS: O2SAT 96
[2023-07-24 07:35] VITALS: BP 111/67; TEMP 97.7; O2SAT 98
[2023-07-24 10:14] VITALS: O2SAT 97
[2023-07-24 20:42] VITALS: BP 103/67; TEMP 98.6; O2SAT 94
[2023-07-24 23:10] VITALS: O2SAT 95
[2023-07-24 23:11] VITALS: O2SAT 95
[2023-07-25 07:32] VITALS: BP 124/71; TEMP 98.8; O2SAT 99
[2023-07-25 10:12] VITALS: O2SAT 98
[2023-07-25 20:00] VITALS: BP 115/74; TEMP 98.8; O2SAT 99
[2023-07-25 22:41] VITALS: O2SAT 95
[2023-07-25 22:43] VITALS: O2SAT 95
[2023-07-26 07:43] VITALS: BP 112/68; TEMP 97.8; O2SAT 99
[2023-07-26 10:04] VITALS: O2SAT 96
[2023-07-26 10:55] VITALS: O2SAT 98
[2023-07-26 21:01] VITALS: BP 100/64; TEMP 97.3; O2SAT 95
[2023-07-26 22:05] VITALS: O2SAT 96
[2023-07-27 07:19] VITALS: BP 131/67; TEMP 97.9; O2SAT 99
[2023-07-27 10:24] VITALS: O2SAT 98
[2023-07-27 20:01] VITALS: BP_SYST 112; BP_SYST 99; BP_DIAS 65; BP_DIAS 73; TEMP 97.9; TEMP 98.4; O2SAT 99
[2023-07-27 23:22] VITALS: O2SAT 97
[2023-07-28 07:50] VITALS: BP 107/73; TEMP 98.7; O2SAT 99
[2023-07-28 10:26] VITALS: O2SAT 99
[2023-07-28 10:27] VITALS: O2SAT 99
[2023-07-28 20:00] VITALS: BP 103/65; TEMP 97.7; O2SAT 16
[2023-07-28 22:34] VITALS: O2SAT 97
[2023-07-29 07:24] VITALS: BP 98/59; TEMP 97.7; O2SAT 97
[2023-07-29 10:02] VITALS: O2SAT 97; O2SAT 98
[2023-07-29 19:25] VITALS: BP 116/72; TEMP 98.8; O2SAT 100
[2023-07-29 22:01] VITALS: O2SAT 97
[2023-07-30 00:29] VITALS: O2SAT 94
[2023-07-30 08:00] VITALS: BP 106/64; TEMP 97.7; O2SAT 92
[2023-07-30 10:02] VITALS: O2SAT 96
[2023-07-30 19:57] VITALS: BP 112/67; TEMP 97.8; O2SAT 98
[2023-07-30 23:49] VITALS: O2SAT 99
[2023-07-30 23:50] VITALS: O2SAT 99
[2023-07-31 07:35] VITALS: BP 106/69; TEMP 97.7; O2SAT 94
[2023-07-31 15:18] VITALS: O2SAT 97
[2023-07-31 20:00] VITALS: BP 102/61; TEMP 98.1; O2SAT 99
[2023-07-31 23:32] VITALS: O2SAT 95
[2023-08-01 06:52] VITALS: BP 106/66; TEMP 97.5; O2SAT 97
[2023-08-01 08:08] VITALS: O2SAT 95
[2023-08-01 10:44] VITALS: O2SAT 97
[2023-08-01 19:59] VITALS: BP 104/59; TEMP 98.8; O2SAT 97
[2023-08-01] MEDS: NYSTATIN TOP POWDER 15 GM BOTTLE TP SCH (20:10)
[2023-08-01 22:35] VITALS: O2SAT 96
[2023-08-01 22:36] VITALS: O2SAT 96
[2023-08-02 07:33] VITALS: BP 101/65; TEMP 98.1; O2SAT 98
[2023-08-02 10:15] VITALS: O2SAT 97
[2023-08-02 23:36] VITALS: O2SAT 94; O2SAT 97
[2023-08-03 08:03] VITALS: BP 109/65; TEMP 97.5; O2SAT 98
[2023-08-03 13:15] VITALS: O2SAT 97
[2023-08-03 21:05] VITALS: BP 105/68; TEMP 98.4; O2SAT 98
[2023-08-04 01:20] VITALS: O2SAT 97
[2023-08-04 07:29] VITALS: BP 99/71; TEMP 97.7; O2SAT 97
[2023-08-04 10:50] VITALS: O2SAT 95
[2023-08-04 19:14] VITALS: BP 101/62; TEMP 98.2; O2SAT 96
[2023-08-04 22:10] VITALS: O2SAT 95
[2023-08-04 22:17] VITALS: O2SAT 95
[2023-08-05 07:31] VITALS: BP 102/60; TEMP 98; O2SAT 95
[2023-08-05 09:52] VITALS: RESP 15; O2SAT 98
[2023-08-05 10:02] VITALS: O2SAT 97
[2023-08-05 20:34] VITALS: BP 112/67; TEMP 98.6; O2SAT 100
[2023-08-05 23:21] VITALS: O2SAT 98
[2023-08-05 23:27] VITALS: O2SAT 98
[2023-08-06 07:06] LABS: BASOPHILS % (AUTO) 0.5 % (0.0-2.0); EOSINOPHILS # (AUTO) 0.2 K/uL (0.0-0.7); EOSINOPHILS % (AUTO) 2.9 % (0.0-6.0); HEMATOCRIT 40 % (39-51); HEMOGLOBIN 12.6 g/dL (13.5-17.5); LYMPHOCYTES # (AUTO) 2.9 K/uL (0.8-4.8); LYMPHOCYTES % (AUTO) 35.7 % (20.0-44.0); MEAN CORPUSCULAR HEMOGLOBIN 28 PG (26.0-33.0); MEAN CORPUSCULAR HGB CONC 32 g/dl (31.0-36.0); MEAN CORPUSCULAR VOLUME 89 fL (80-96); MONOCYTES # (AUTO) 0.6 K/uL (0.1-1.30); MONOCYTES % (AUTO) 7.8 % (2.0-12.0); NEUTROPHILS # (AUTO) 4.2 K/uL (1.8-8.9); NEUTROPHILS % (AUTO) 53.1 % (43.0-81.0); PLATELET COUNT (AUTO) 220 K/uL (150-450); RED BLOOD CELL COUNT(AUTO) 4.45 MIL/uL (4.5-6.0); RED CELL DISTRIBUTION WIDTH 18.8 % (11.5-15.0)
[2023-08-06 07:20] LABS: CREATININE 0.2 mg/dL (0.6-1.3); POTASSIUM 4.6 mmol/L (3.5-5.1)
[2023-08-06 07:45] VITALS: BP 103/65; TEMP 98.6; O2SAT 97
[2023-08-06 10:06] VITALS: O2SAT 96
[2023-08-06 10:07] VITALS: O2SAT 96
[2023-08-06 20:29] VITALS: BP 105/71; TEMP 97.5; O2SAT 99
[2023-08-06 22:12] VITALS: O2SAT 95
[2023-08-07 10:03] VITALS: O2SAT 96
[2023-08-07 19:55] VITALS: BP 112/72; TEMP 98.4; O2SAT 99
[2023-08-07 23:06] VITALS: O2SAT 100; O2SAT 96
[2023-08-08 07:20] VITALS: BP 101/68; TEMP 97.5; O2SAT 99
[2023-08-08 10:54] VITALS: O2SAT 94
[2023-08-08 10:55] VITALS: O2SAT 94
[2023-08-08 21:44] VITALS: BP 102/60; TEMP 98.6; O2SAT 97
[2023-08-08 22:29] VITALS: O2SAT 98
[2023-08-09 07:24] VITALS: BP 103/65; TEMP 98.6; O2SAT 99
[2023-08-09 10:06] VITALS: O2SAT 97
[2023-08-09 10:07] VITALS: O2SAT 98
[2023-08-09 20:47] VITALS: BP 108/62; TEMP 97.9; O2SAT 97
[2023-08-09 23:26] VITALS: O2SAT 97
[2023-08-10 08:11] VITALS: BP 107/59; TEMP 97.9; O2SAT 96
[2023-08-10 10:02] VITALS: O2SAT 97
[2023-08-10 23:40] VITALS: O2SAT 98
[2023-08-10 23:42] VITALS: O2SAT 98
[2023-08-11 10:18] VITALS: O2SAT 98
[2023-08-11 10:19] VITALS: O2SAT 96
[2023-08-11 15:43] VITALS: BP 98/56; TEMP 97.9; O2SAT 93
[2023-08-11 19:38] VITALS: BP 101/57; TEMP 98.2; O2SAT 99
[2023-08-11 23:16] VITALS: O2SAT 96
[2023-08-11 23:17] VITALS: O2SAT 96
[2023-08-12 07:33] VITALS: BP 105/60; TEMP 97.7; O2SAT 98
[2023-08-12 10:22] VITALS: O2SAT 95
[2023-08-12 10:23] VITALS: O2SAT 95
[2023-08-12 19:51] VITALS: BP 107/59; TEMP 98.6; O2SAT 97
[2023-08-12 22:09] VITALS: O2SAT 97
[2023-08-12 23:46] VITALS: O2SAT 98
[2023-08-13 07:36] VITALS: BP 97/59; TEMP 98.2; O2SAT 97
[2023-08-13 10:07] VITALS: O2SAT 98
[2023-08-13 20:57] VITALS: BP 117/71; TEMP 98.1; O2SAT 98
[2023-08-13 23:17] VITALS: O2SAT 97
[2023-08-13 23:18] VITALS: O2SAT 97
[2023-08-14 07:34] VITALS: BP 110/74; TEMP 97.8; O2SAT 95
[2023-08-14 10:28] VITALS: O2SAT 95; O2SAT 98
[2023-08-14 20:47] VITALS: BP 12/67; TEMP 97.5; O2SAT 96
[2023-08-14 22:26] VITALS: O2SAT 95
[2023-08-14 22:27] VITALS: O2SAT 95
[2023-08-15 07:46] VITALS: BP 110/72; TEMP 98.2; O2SAT 99
[2023-08-15 11:46] VITALS: O2SAT 97
[2023-08-15 12:04] VITALS: O2SAT 97
[2023-08-15] MEDS: PNEUMOC 20-VAL CONJ-DIP CRM/PF 0.5 ML SYRINGE IM ONE (13:00)
[2023-08-15 20:00] VITALS: BP 104/64; TEMP 98.3; O2SAT 99
[2023-08-15 22:30] VITALS: O2SAT 95
[2023-08-15 23:22] VITALS: O2SAT 97
[2023-08-16 08:10] VITALS: BP 99/63; TEMP 94.1; O2SAT 94
[2023-08-16 10:05] VITALS: O2SAT 97
[2023-08-16 19:08] VITALS: BP 120/63; TEMP 98.1; O2SAT 100
[2023-08-17 01:02] VITALS: O2SAT 96
[2023-08-17 08:31] VITALS: BP 111/65; TEMP 97.5; O2SAT 98
[2023-08-17 10:01] VITALS: O2SAT 97
[2023-08-17 10:02] VITALS: O2SAT 97
[2023-08-17 19:21] VITALS: BP 126/81; TEMP 97.9; O2SAT 99
[2023-08-17 23:42] VITALS: O2SAT 98
[2023-08-18 07:22] VITALS: BP 105/69; TEMP 97.7; O2SAT 98
[2023-08-18 10:52] VITALS: O2SAT 98
[2023-08-18 20:49] VITALS: BP 102/63; TEMP 97.5; O2SAT 98
[2023-08-18 23:11] VITALS: O2SAT 98
[2023-08-18 23:12] VITALS: O2SAT 98
[2023-08-19 07:18] VITALS: BP 102/61; TEMP 97.7; O2SAT 100
[2023-08-19 10:08] VITALS: O2SAT 97
[2023-08-19 19:32] VITALS: BP 104/70; TEMP 97.8; O2SAT 98
[2023-08-19 23:38] VITALS: O2SAT 96
[2023-08-19 23:41] VITALS: O2SAT 96
[2023-08-20 07:37] VITALS: BP 111/72; TEMP 97.8; O2SAT 97
[2023-08-20 10:11] VITALS: O2SAT 95
[2023-08-20 19:51] VITALS: BP 115/76; TEMP 97.5; O2SAT 97
[2023-08-20 22:07] VITALS: O2SAT 96
[2023-08-21 07:39] VITALS: BP 100/57; TEMP 97.8; O2SAT 98
[2023-08-21 10:10] VITALS: O2SAT 96
[2023-08-21 21:25] VITALS: BP 102/62; TEMP 98.2; O2SAT 95
[2023-08-21 22:43] VITALS: O2SAT 95
[2023-08-22 07:26] VITALS: BP 102/70; TEMP 97.7; O2SAT 96
[2023-08-22 10:05] VITALS: O2SAT 96
[2023-08-22 10:06] VITALS: O2SAT 97
[2023-08-22 19:42] VITALS: O2SAT 98
[2023-08-22 21:26] VITALS: BP 105/62; TEMP 97.8; O2SAT 100
[2023-08-22 23:19] VITALS: O2SAT 98
[2023-08-23 07:35] VITALS: BP 99/56; TEMP 98.4; O2SAT 96
[2023-08-23 10:23] VITALS: O2SAT 97
[2023-08-23 19:11] VITALS: BP 103/57; TEMP 97.7; O2SAT 96
[2023-08-23 19:49] VITALS: O2SAT 97
[2023-08-23 22:00] VITALS: O2SAT 97
[2023-08-23 22:57] VITALS: O2SAT 97
[2023-08-24 08:18] VITALS: BP 101/60; TEMP 97.4; O2SAT 92
[2023-08-24 10:04] VITALS: O2SAT 95
[2023-08-24 10:05] VITALS: O2SAT 95
[2023-08-24 19:07] VITALS: BP 107/70; TEMP 97.9; O2SAT 96
[2023-08-24 19:08] VITALS: BP 107/70; TEMP 97.9; O2SAT 96
[2023-08-24 23:44] VITALS: O2SAT 95
[2023-08-25 08:36] VITALS: BP 99/61; TEMP 98.1; O2SAT 95
[2023-08-25] MEDS: TRIAMCINOLONE ACETONIDE 0.1% CR 15 GM TUBE TP SCH (09:04)
[2023-08-25] MEDS: NYSTATIN CREAM 15 GM TUBE TP SCH (09:05)
[2023-08-25 10:08] VITALS: O2SAT 94
[2023-08-25 19:15] VITALS: BP 125/74; TEMP 97.7; O2SAT 99
[2023-08-25 23:24] VITALS: O2SAT 98
[2023-08-26 08:17] VITALS: BP 102/67; TEMP 97.7; O2SAT 99
[2023-08-26 10:04] VITALS: O2SAT 99
[2023-08-26 11:18] VITALS: O2SAT 99
[2023-08-26 12:48] VITALS: BP 115/68; TEMP 97.7; O2SAT 98
[2023-08-26 19:02] VITALS: BP 110/67; TEMP 97.5; O2SAT 97
[2023-08-26 23:26] VITALS: O2SAT 95
[2023-08-27 07:02] VITALS: BP 111/71; TEMP 98.4; O2SAT 97
[2023-08-27 10:23] VITALS: O2SAT 96
[2023-08-27 19:58] VITALS: BP 115/72; TEMP 97.5; O2SAT 96
[2023-08-27 23:38] VITALS: O2SAT 96
[2023-08-27 23:39] VITALS: O2SAT 96
[2023-08-28 07:31] VITALS: BP 101/62; TEMP 97.7; O2SAT 98
[2023-08-28 10:04] VITALS: O2SAT 98
[2023-08-28 10:57] VITALS: O2SAT 98
[2023-08-28 19:47] VITALS: BP 100/58; TEMP 98.9; O2SAT 97
[2023-08-28 22:13] VITALS: O2SAT 96
[2023-08-29 10:10] VITALS: O2SAT 97
[2023-08-29 20:09] VITALS: BP 110/67; TEMP 98.1; O2SAT 95
[2023-08-29 22:24] VITALS: O2SAT 96
[2023-08-29 23:34] VITALS: O2SAT 96
[2023-08-30 07:10] VITALS: BP 107/66; TEMP 97.3; O2SAT 96
[2023-08-30 08:00] VITALS: O2SAT 96
[2023-08-30 10:03] VITALS: O2SAT 96
[2023-08-30 20:02] VITALS: BP 102/64; TEMP 98.2; O2SAT 97
[2023-08-30 23:49] VITALS: O2SAT 98
[2023-08-30 23:50] VITALS: O2SAT 97
[2023-08-31 07:24] VITALS: BP 109/62; TEMP 97.7; O2SAT 100
[2023-08-31 10:49] VITALS: O2SAT 98
[2023-08-31 10:53] VITALS: O2SAT 98
[2023-08-31 20:06] VITALS: BP 102/62; TEMP 98.2; O2SAT 98
[2023-08-31 22:58] VITALS: O2SAT 97
[2023-09-01 07:01] VITALS: BP 107/73; TEMP 98.4; O2SAT 99
[2023-09-01 10:04] VITALS: O2SAT 99
[2023-09-01 11:09] VITALS: O2SAT 99
[2023-09-01 22:21] VITALS: O2SAT 98
[2023-09-02 06:57] VITALS: BP 126/80; TEMP 97.9; O2SAT 98
[2023-09-02 10:01] VITALS: O2SAT 97
[2023-09-02 20:00] VITALS: BP 126/71; TEMP 98; O2SAT 99
[2023-09-02 22:30] VITALS: O2SAT 95
[2023-09-03 07:16] VITALS: BP 103/70; TEMP 98.2; O2SAT 98
[2023-09-03 11:11] VITALS: O2SAT 97
[2023-09-03 11:12] VITALS: O2SAT 97
[2023-09-03 21:11] VITALS: BP 96/58; TEMP 98.1; O2SAT 94
[2023-09-03 22:16] VITALS: O2SAT 94
[2023-09-04 08:05] VITALS: BP 105/65; TEMP 97.5; O2SAT 98
[2023-09-04 10:35] VITALS: RESP 14; O2SAT 97
[2023-09-04 10:40] VITALS: O2SAT 97
[2023-09-04 10:41] VITALS: O2SAT 97
[2023-09-04 21:17] VITALS: BP 101/71; TEMP 98.9; O2SAT 94
[2023-09-04 22:33] VITALS: O2SAT 95
[2023-09-05 07:00] VITALS: BP 111/68; TEMP 97.3; O2SAT 96
[2023-09-05 10:13] VITALS: O2SAT 96
[2023-09-05 10:15] VITALS: O2SAT 96
[2023-09-05 20:00] VITALS: BP 126/79; TEMP 98.3; O2SAT 99
[2023-09-05 22:48] VITALS: O2SAT 97
[2023-09-05 22:49] VITALS: O2SAT 97
[2023-09-06 07:00] VITALS: BP 110/71; TEMP 98; O2SAT 98
[2023-09-06 11:39] VITALS: O2SAT 98
[2023-09-06 21:30] VITALS: BP 105/68; TEMP 98.4; O2SAT 97
[2023-09-06 22:52] VITALS: O2SAT 97
[2023-09-06 23:26] VITALS: O2SAT 96
[2023-09-07 08:16] VITALS: BP 125/76; TEMP 97.7; O2SAT 100
[2023-09-07 10:21] VITALS: O2SAT 96
[2023-09-07 19:56] VITALS: BP 113/68; TEMP 98.3; O2SAT 96
[2023-09-07 23:24] VITALS: O2SAT 96
[2023-09-08 10:41] VITALS: O2SAT 97
[2023-09-08 19:20] VITALS: BP 109/70; TEMP 97.5; O2SAT 97
[2023-09-08 23:24] VITALS: O2SAT 97
[2023-09-09 07:43] VITALS: BP 113/71; TEMP 97; O2SAT 98
[2023-09-09 10:01] VITALS: O2SAT 99
[2023-09-09 19:17] VITALS: BP 104/66; TEMP 98.1; O2SAT 98
[2023-09-09 23:56] VITALS: O2SAT 98
[2023-09-10 08:12] VITALS: BP 116/66; TEMP 97.4; O2SAT 99
[2023-09-10 10:52] VITALS: O2SAT 98
[2023-09-10 10:53] VITALS: O2SAT 98
[2023-09-10 21:32] VITALS: BP 111/71; TEMP 98.2; O2SAT 100
[2023-09-10 23:15] VITALS: O2SAT 98
[2023-09-10 23:36] VITALS: O2SAT 98
[2023-09-11 07:44] VITALS: BP 101/62; TEMP 98.2; O2SAT 98
[2023-09-11 10:30] VITALS: O2SAT 96
[2023-09-11 10:31] VITALS: O2SAT 97
[2023-09-11] MEDS: DICLOFENAC TOPICAL 100 GM TUBE TP PRN (11:25)
[2023-09-11 20:56] VITALS: BP 98/55; TEMP 99; O2SAT 95
[2023-09-11 23:32] VITALS: O2SAT 95
[2023-09-11 23:34] VITALS: O2SAT 95
[2023-09-12 07:55] VITALS: BP_SYST 97; BP_SYST 98; BP_DIAS 55; BP_DIAS 67; TEMP 97.7; O2SAT 95
[2023-09-12 10:24] VITALS: O2SAT 96
[2023-09-12 10:25] VITALS: O2SAT 96
[2023-09-12 20:03] VITALS: BP 105/59; TEMP 98; O2SAT 97
[2023-09-12 22:24] VITALS: O2SAT 95
[2023-09-12 23:52] VITALS: O2SAT 96
[2023-09-13 08:00] VITALS: BP 98/57; TEMP 100.2; O2SAT 96
[2023-09-13 10:15] VITALS: O2SAT 96
[2023-09-13 19:49] VITALS: BP 100/58; TEMP 100.6; O2SAT 97
[2023-09-13 21:00] VITALS: TEMP 99
[2023-09-13 22:30] VITALS: TEMP 98.5
[2023-09-13 23:35] VITALS: O2SAT 95; O2SAT 96
[2023-09-14 04:33] VITALS: TEMP 98.2
[2023-09-14 07:39] VITALS: BP 98/60; TEMP 98.4; O2SAT 98
[2023-09-14 10:30] VITALS: O2SAT 99
[2023-09-14 10:31] VITALS: O2SAT 99
[2023-09-14 19:10] VITALS: BP 103/76; TEMP 99; O2SAT 97
[2023-09-14 23:27] VITALS: O2SAT 98
[2023-09-15 07:24] VITALS: BP 105/73; TEMP 97.9; O2SAT 98
[2023-09-15 10:35] VITALS: O2SAT 99
[2023-09-15] MEDS: NYSTATIN TOP POWDER 15 GM BOTTLE TP SCH (12:30)
[2023-09-15 19:53] VITALS: BP 101/76; TEMP 99.1; O2SAT 98
[2023-09-15 22:40] VITALS: O2SAT 97
[2023-09-15 22:41] VITALS: O2SAT 97
[2023-09-16 07:29] VITALS: BP 107/72; TEMP 97.7; O2SAT 98
[2023-09-16 10:10] VITALS: O2SAT 98
[2023-09-16 20:00] VITALS: BP 107/63; TEMP 98; O2SAT 99
[2023-09-16 22:33] VITALS: O2SAT 98
[2023-09-16 22:34] VITALS: O2SAT 98
[2023-09-17 07:49] LABS: BASOPHILS % (AUTO) 0.4 % (0.0-2.0); EOSINOPHILS # (AUTO) 0.2 K/uL (0.0-0.7); EOSINOPHILS % (AUTO) 2.7 % (0.0-6.0); HEMATOCRIT 35 % (39-51); HEMOGLOBIN 11.3 g/dL (13.5-17.5); LYMPHOCYTES % (AUTO) 38.5 % (20.0-44.0); MEAN CORPUSCULAR HEMOGLOBIN 28 PG (26.0-33.0); MEAN CORPUSCULAR HGB CONC 32 g/dl (31.0-36.0); MEAN CORPUSCULAR VOLUME 88 fL (80-96); MONOCYTES # (AUTO) 0.9 K/uL (0.1-1.30); MONOCYTES % (AUTO) 11.5 % (2.0-12.0); NEUTROPHILS # (AUTO) 3.6 K/uL (1.8-8.9); NEUTROPHILS % (AUTO) 46.9 % (43.0-81.0); PLATELET COUNT (AUTO) 155 K/uL (150-450); RED BLOOD CELL COUNT(AUTO) 4.04 MIL/uL (4.5-6.0); RED CELL DISTRIBUTION WIDTH 19.5 % (11.5-15.0); WHITE BLOOD COUNT (AUTO) 7.7 K/uL (4.3-11.0)
[2023-09-17 08:01] VITALS: BP 111/59; TEMP 98; O2SAT 98
[2023-09-17 08:01] LABS: CALCIUM, SERUM 9.6 mg/dL (8.5-10.1); CREATININE 0.3 mg/dL (0.6-1.3); POTASSIUM 3.8 mmol/L (3.5-5.1)
[2023-09-17 10:03] VITALS: O2SAT 100; O2SAT 98
[2023-09-17 20:00] VITALS: BP 109/74; TEMP 98; O2SAT 99
[2023-09-17 22:43] VITALS: O2SAT 99
[2023-09-17 22:44] VITALS: O2SAT 99
[2023-09-18 07:36] VITALS: BP 116/69; TEMP 97.5; O2SAT 98
[2023-09-18 10:27] VITALS: O2SAT 100; O2SAT 97
[2023-09-18 21:30] VITALS: BP 114/71; TEMP 98.8; O2SAT 99
[2023-09-18 22:44] VITALS: O2SAT 100
[2023-09-18 22:45] VITALS: O2SAT 100
[2023-09-19 07:43] VITALS: BP 121/76; TEMP 97.5; O2SAT 100
[2023-09-19 10:07] VITALS: O2SAT 96
[2023-09-19 20:05] VITALS: BP 99/75; TEMP 98.1; O2SAT 100
[2023-09-19 23:25] VITALS: O2SAT 100
[2023-09-20 07:24] VITALS: BP 101/58; TEMP 97.7; O2SAT 97
[2023-09-20 10:11] VITALS: O2SAT 98
[2023-09-20 19:43] VITALS: BP 104/69; TEMP 97.5; O2SAT 98
[2023-09-20 20:40] VITALS: O2SAT 97
[2023-09-20 23:58] VITALS: O2SAT 98
[2023-09-21 07:10] VITALS: BP 104/64; TEMP 96.8; O2SAT 99
[2023-09-21 10:42] VITALS: O2SAT 99
[2023-09-21 19:24] VITALS: BP 102/61; TEMP 98; O2SAT 100
[2023-09-21 23:35] VITALS: O2SAT 98
[2023-09-22 07:59] VITALS: BP 113/64; TEMP 97.7; O2SAT 99
[2023-09-22 10:10] VITALS: O2SAT 98; O2SAT 99
[2023-09-22 19:26] VITALS: BP 109/61; TEMP 97.8; O2SAT 99
[2023-09-22 23:21] VITALS: O2SAT 98
[2023-09-23 08:13] VITALS: BP 98/55; TEMP 97.7; O2SAT 98
[2023-09-23 10:17] VITALS: O2SAT 97; O2SAT 98
[2023-09-23 19:37] VITALS: BP 112/63; TEMP 98.2; O2SAT 99
[2023-09-23 22:34] VITALS: O2SAT 98
[2023-09-23 23:49] VITALS: O2SAT 99
[2023-09-24 10:35] VITALS: O2SAT 99
[2023-09-24 20:05] VITALS: BP 101/64; TEMP 97.9; O2SAT 95
[2023-09-24 22:48] VITALS: O2SAT 96
[2023-09-25 10:25] VITALS: O2SAT 96
[2023-09-25 20:44] VITALS: BP 109/65; TEMP 97.5; O2SAT 98
[2023-09-25 22:26] VITALS: O2SAT 96; O2SAT 98
[2023-09-26 07:22] VITALS: BP 102/51; TEMP 97.3; O2SAT 99
[2023-09-26 17:33] VITALS: O2SAT 97
[2023-09-26 17:34] VITALS: O2SAT 97
[2023-09-26 20:30] VITALS: BP 112/65; TEMP 98.4; O2SAT 98
[2023-09-26 23:43] VITALS: O2SAT 99
[2023-09-27 07:24] VITALS: BP 101/60; TEMP 98.4; O2SAT 96
[2023-09-27 10:10] VITALS: O2SAT 98
[2023-09-27 19:47] VITALS: BP 106/63; TEMP 98; O2SAT 97
[2023-09-27 22:55] VITALS: O2SAT 97
[2023-09-28 07:55] VITALS: BP 101/56; TEMP 98; O2SAT 98
[2023-09-28 10:07] VITALS: O2SAT 97; O2SAT 98
[2023-09-28 21:55] VITALS: BP 106/58; TEMP 97.7; O2SAT 100
[2023-09-28 23:30] VITALS: O2SAT 98
[2023-09-29 07:34] VITALS: BP 106/68; TEMP 98.2; O2SAT 98
[2023-09-29 10:06] VITALS: O2SAT 98
[2023-09-29 21:02] VITALS: BP 115/70; TEMP 98.4; O2SAT 97
[2023-09-29 22:22] VITALS: O2SAT 98
[2023-09-29 22:23] VITALS: O2SAT 98
[2023-09-30 07:21] VITALS: BP 96/61; TEMP 97.9; O2SAT 98
[2023-09-30 10:02] VITALS: O2SAT 98
[2023-09-30 20:00] VITALS: BP 100/61; TEMP 98; O2SAT 99
[2023-09-30 23:45] VITALS: O2SAT 96
[2023-09-30 23:46] VITALS: O2SAT 96
[2023-10-01 07:41] VITALS: BP 104/61; TEMP 97.9; O2SAT 98
[2023-10-01 10:03] VITALS: O2SAT 96
[2023-10-01 10:18] VITALS: O2SAT 96
[2023-10-01 20:00] VITALS: BP 106/61; TEMP 98; O2SAT 99
[2023-10-01 22:49] VITALS: O2SAT 97
[2023-10-02 07:44] VITALS: BP 101/54; TEMP 97.7; O2SAT 98
[2023-10-02 10:33] VITALS: O2SAT 96
[2023-10-02 10:34] VITALS: O2SAT 97
[2023-10-02 22:00] VITALS: BP 109/60; TEMP 97.8; O2SAT 99
[2023-10-02 22:49] VITALS: O2SAT 98
[2023-10-02 22:50] VITALS: O2SAT 98
[2023-10-03 10:22] VITALS: O2SAT 97
[2023-10-03 16:58] VITALS: O2SAT 96
[2023-10-03 21:00] VITALS: BP 105/62; TEMP 98.2; O2SAT 97
[2023-10-03 22:36] VITALS: O2SAT 97
[2023-10-03 23:46] VITALS: O2SAT 98
[2023-10-04 07:11] VITALS: BP 108/72; TEMP 98.8; O2SAT 98
[2023-10-04 10:40] VITALS: O2SAT 98
[2023-10-04 22:09] VITALS: O2SAT 99
[2023-10-05 07:31] VITALS: BP 107/67; TEMP 98.8; O2SAT 98
[2023-10-05 10:01] VITALS: O2SAT 98
[2023-10-05 10:02] VITALS: RESP 17; O2SAT 98
[2023-10-05 19:08] VITALS: BP 108/55; TEMP 98.3; O2SAT 100
[2023-10-05 22:12] VITALS: O2SAT 99
[2023-10-06 07:27] VITALS: BP 107/66; TEMP 97.7; O2SAT 98
[2023-10-06 10:04] VITALS: O2SAT 99
[2023-10-06 11:11] VITALS: O2SAT 99
[2023-10-06 19:32] VITALS: BP 108/68; TEMP 99.1; O2SAT 97
[2023-10-06 22:19] VITALS: O2SAT 98
[2023-10-06 23:41] VITALS: O2SAT 97
[2023-10-07 07:32] VITALS: BP 110/69; TEMP 97.9; O2SAT 97
[2023-10-07 08:04] VITALS: O2SAT 97
[2023-10-07 19:23] VITALS: BP 102/69; TEMP 99; O2SAT 100
[2023-10-07 22:41] VITALS: O2SAT 95
[2023-10-08 07:06] VITALS: BP 108/58; TEMP 97.4; O2SAT 97
[2023-10-08 10:05] VITALS: O2SAT 96
[2023-10-08 20:00] VITALS: BP 107/62; TEMP 98.3; O2SAT 99
[2023-10-08 22:30] VITALS: O2SAT 96
[2023-10-08 22:31] VITALS: O2SAT 96
[2023-10-09 07:24] VITALS: BP 123/67; TEMP 97.9; O2SAT 99
[2023-10-09 10:00] VITALS: O2SAT 100
[2023-10-09 10:18] VITALS: O2SAT 100
[2023-10-09 20:24] VITALS: BP 109/67; TEMP 98.4; O2SAT 100
[2023-10-09 22:16] VITALS: O2SAT 96
[2023-10-09 22:17] VITALS: O2SAT 96
[2023-10-10 10:21] VITALS: O2SAT 99
[2023-10-10 10:23] VITALS: O2SAT 100
[2023-10-10 16:36] VITALS: BP 125/80; TEMP 98.1; O2SAT 99
[2023-10-10 20:00] VITALS: BP 121/71; TEMP 98.1; O2SAT 99
[2023-10-10 22:39] VITALS: O2SAT 99
[2023-10-10 22:40] VITALS: O2SAT 99
[2023-10-11 06:54] VITALS: BP 99/66; TEMP 97.3; O2SAT 98
[2023-10-11 10:02] VITALS: O2SAT 98
[2023-10-11 18:52] VITALS: BP 103/64; TEMP 98.1; O2SAT 96
[2023-10-11 22:28] VITALS: O2SAT 98
[2023-10-11 22:29] VITALS: O2SAT 97
[2023-10-12 07:30] VITALS: BP 99/60; TEMP 98.1; O2SAT 97
[2023-10-12 10:10] VITALS: O2SAT 95; O2SAT 98
[2023-10-12 18:50] VITALS: BP 115/70; TEMP 98.4; O2SAT 100
[2023-10-12 22:10] VITALS: O2SAT 98; O2SAT 99
[2023-10-13 07:14] VITALS: BP 103/76; TEMP 97.6; O2SAT 100
[2023-10-13 10:00] VITALS: O2SAT 99
[2023-10-13 10:01] VITALS: O2SAT 99
[2023-10-13 19:22] VITALS: BP 99/66; TEMP 98.8; O2SAT 98
[2023-10-13 22:47] VITALS: O2SAT 96
[2023-10-13 22:48] VITALS: O2SAT 96
[2023-10-14 07:37] VITALS: BP 99/61; TEMP 98.8; O2SAT 98
[2023-10-14 19:58] VITALS: BP 102/66; TEMP 98.3; O2SAT 99
[2023-10-14 23:16] VITALS: O2SAT 96
[2023-10-14 23:17] VITALS: O2SAT 95
[2023-10-14 23:31] VITALS: O2SAT 95
[2023-10-15 07:32] VITALS: BP 103/68; TEMP 98.6; O2SAT 96
[2023-10-15 10:58] VITALS: O2SAT 97
[2023-10-15 20:00] VITALS: BP 128/69; TEMP 98; O2SAT 99
[2023-10-15 22:30] VITALS: O2SAT 100
[2023-10-16 07:30] VITALS: BP 107/73; TEMP 98.4; O2SAT 95
[2023-10-16 10:05] VITALS: O2SAT 96
[2023-10-16 19:40] VITALS: BP 109/69; TEMP 98.1; O2SAT 100
[2023-10-16 23:24] VITALS: O2SAT 99
[2023-10-17 07:19] VITALS: BP 96/58; TEMP 97.5; O2SAT 98
[2023-10-17 10:13] VITALS: O2SAT 99
[2023-10-17 10:14] VITALS: O2SAT 98
[2023-10-17 20:49] VITALS: BP 105/64; TEMP 98.2; O2SAT 97
[2023-10-17 22:33] VITALS: O2SAT 96
[2023-10-17 22:37] VITALS: O2SAT 99
[2023-10-18 07:23] VITALS: BP 103/67; TEMP 98.2; O2SAT 96
[2023-10-18 10:12] VITALS: O2SAT 97
[2023-10-18 10:13] VITALS: O2SAT 97
[2023-10-18 20:35] VITALS: BP 107/64; TEMP 98.1; O2SAT 98
[2023-10-19 00:09] VITALS: O2SAT 97
[2023-10-19 07:55] VITALS: BP 117/73; TEMP 98.1; O2SAT 98
[2023-10-19 10:14] VITALS: O2SAT 97
[2023-10-19 19:13] VITALS: BP 111/73; TEMP 97.9; O2SAT 97
[2023-10-19 23:24] VITALS: O2SAT 98
[2023-10-20 07:45] VITALS: BP 101/59; TEMP 97.5; O2SAT 98
[2023-10-20 10:28] VITALS: O2SAT 96
[2023-10-20 18:50] VITALS: BP 110/73; TEMP 98.1; O2SAT 97
[2023-10-20 23:26] VITALS: O2SAT 96
[2023-10-21 07:33] VITALS: BP 102/67; TEMP 97.9; O2SAT 95
[2023-10-21 10:07] VITALS: O2SAT 97
[2023-10-21 19:07] VITALS: BP 118/77; TEMP 97.8; O2SAT 98
[2023-10-21 23:24] VITALS: O2SAT 97
[2023-10-22 10:06] VITALS: O2SAT 96
[2023-10-22 19:50] VITALS: BP 96/64; TEMP 98.1; O2SAT 98
[2023-10-22 23:08] VITALS: O2SAT 98
[2023-10-22 23:11] VITALS: O2SAT 97
[2023-10-23 07:12] VITALS: BP 112/71; TEMP 98.4; O2SAT 99
[2023-10-23 10:58] VITALS: O2SAT 96
[2023-10-23 10:59] VITALS: O2SAT 96
[2023-10-23 22:00] VITALS: BP 112/71; TEMP 97.9; O2SAT 97
[2023-10-23 23:46] VITALS: O2SAT 97
[2023-10-24 07:37] VITALS: BP 113/70; TEMP 97.6; O2SAT 98
[2023-10-24 10:26] VITALS: O2SAT 97
[2023-10-24 10:27] VITALS: O2SAT 97
[2023-10-24 19:07] VITALS: BP 96/56; TEMP 98.4; O2SAT 98
[2023-10-24 22:03] VITALS: O2SAT 96
[2023-10-24 23:48] VITALS: O2SAT 98
[2023-10-25 07:28] VITALS: BP 126/74; TEMP 97.6; O2SAT 98
[2023-10-25] MEDS: BACI/NEOM/POLY B OINT PKT 1 UDPKT PACKET TP SCH (09:35)
[2023-10-25 10:04] VITALS: O2SAT 97
[2023-10-25 10:05] VITALS: O2SAT 98
[2023-10-25 19:00] VITALS: BP 105/64; TEMP 98; O2SAT 96
[2023-10-25 22:26] VITALS: O2SAT 94
[2023-10-26 08:54] VITALS: BP 123/71; TEMP 97.6; O2SAT 98
[2023-10-26 10:03] VITALS: O2SAT 96
[2023-10-26 10:04] VITALS: O2SAT 97
[2023-10-26 19:37] VITALS: BP 115/72; TEMP 97.7; O2SAT 100
[2023-10-26 22:11] VITALS: O2SAT 97
[2023-10-27 08:01] VITALS: BP 105/60; TEMP 98.4; O2SAT 98
[2023-10-27 10:08] VITALS: O2SAT 98
[2023-10-27 19:58] VITALS: BP 105/61; TEMP 97.8; O2SAT 99
[2023-10-27 22:52] VITALS: O2SAT 99
[2023-10-27 22:53] VITALS: O2SAT 99
[2023-10-28 08:38] VITALS: BP 110/66; TEMP 97.7; O2SAT 98
[2023-10-28 10:04] VITALS: O2SAT 98
[2023-10-28 19:55] VITALS: BP 100/60; TEMP 97.5; O2SAT 97
[2023-10-28 22:01] VITALS: O2SAT 97
[2023-10-29 07:31] VITALS: BP 105/72; TEMP 97.7; O2SAT 98
[2023-10-29 10:04] VITALS: O2SAT 96; O2SAT 97
[2023-10-29 19:21] VITALS: BP 101/57; TEMP 97.5; O2SAT 97
[2023-10-29 22:39] VITALS: O2SAT 97
[2023-10-29 22:40] VITALS: O2SAT 97
[2023-10-30 07:41] VITALS: BP 98/51; TEMP 97.9; O2SAT 95
[2023-10-30 11:58] VITALS: O2SAT 98
[2023-10-30 11:59] VITALS: O2SAT 98
[2023-10-30 20:56] VITALS: BP 104/55; TEMP 98.2; O2SAT 97
[2023-10-30 22:38] VITALS: O2SAT 97
[2023-10-30 23:52] VITALS: O2SAT 97
[2023-10-31 10:30] VITALS: O2SAT 98
[2023-10-31 19:42] VITALS: BP 112/69; TEMP 97.3; O2SAT 95
[2023-10-31 23:42] VITALS: O2SAT 100
[2023-11-01 08:34] VITALS: BP 120/72; TEMP 96.9; O2SAT 97
[2023-11-01 10:04] VITALS: O2SAT 98
[2023-11-01 11:25] VITALS: O2SAT 98
[2023-11-01 19:33] VITALS: BP 108/60; TEMP 98.1; O2SAT 98
[2023-11-01 22:25] VITALS: O2SAT 97
[2023-11-02] MEDS: JEVITY 1.2 CAL 1,000 ML BOTTLE GT PRN (05:11)
[2023-11-02 07:44] VITALS: BP 109/65; TEMP 98.1; O2SAT 98
[2023-11-02 10:17] VITALS: O2SAT 99
[2023-11-02 19:36] VITALS: BP 101/62; TEMP 97.4; O2SAT 98
[2023-11-02 23:33] VITALS: O2SAT 99
[2023-11-03 07:45] VITALS: BP 98/61; TEMP 97.5; O2SAT 99
[2023-11-03 10:50] VITALS: O2SAT 98
[2023-11-03 12:29] VITALS: O2SAT 96
[2023-11-03 19:48] VITALS: BP 93/56; TEMP 98.2; O2SAT 99
[2023-11-03 23:33] VITALS: O2SAT 94
[2023-11-04 07:26] VITALS: BP 109/67; TEMP 97.6; O2SAT 98
[2023-11-04 09:23] VITALS: O2SAT 97
[2023-11-04 12:36] VITALS: O2SAT 95
[2023-11-04 12:38] VITALS: O2SAT 95
[2023-11-04 19:44] VITALS: BP 98/68; TEMP 98.4; O2SAT 96
[2023-11-04 23:22] VITALS: O2SAT 93
[2023-11-05 07:41] VITALS: BP 112/64; TEMP 98.4; O2SAT 98
[2023-11-05 10:23] VITALS: O2SAT 98
[2023-11-05 10:24] VITALS: RESP 15; O2SAT 99
[2023-11-05 19:30] VITALS: BP 103/68; TEMP 98.2; O2SAT 96
[2023-11-05 22:04] VITALS: O2SAT 97
[2023-11-06 07:33] VITALS: BP 98/58; TEMP 98.3; O2SAT 98
[2023-11-06 11:42] VITALS: O2SAT 99
[2023-11-06 11:43] VITALS: O2SAT 99
[2023-11-06 20:49] VITALS: BP 98/71; TEMP 98.1; O2SAT 99
[2023-11-06 22:07] VITALS: O2SAT 97
[2023-11-07 07:13] VITALS: BP 107/66; TEMP 97.9; O2SAT 98
[2023-11-07 10:01] VITALS: O2SAT 98
[2023-11-07 10:02] VITALS: O2SAT 98
[2023-11-07 19:47] VITALS: BP 98/64; TEMP 97.9; O2SAT 94
[2023-11-07 23:40] VITALS: O2SAT 97
[2023-11-08 07:17] VITALS: BP 107/63; TEMP 97.7; O2SAT 97
[2023-11-08 10:04] VITALS: O2SAT 97
[2023-11-08 11:07] VITALS: O2SAT 99
[2023-11-08 20:31] VITALS: BP 110/68; TEMP 98.2; O2SAT 99
[2023-11-08 23:28] VITALS: O2SAT 97
[2023-11-08 23:29] VITALS: O2SAT 97
[2023-11-09 07:33] VITALS: BP 99/63; TEMP 98.4; O2SAT 97
[2023-11-09 10:00] VITALS: O2SAT 97; O2SAT 99
[2023-11-09 19:09] VITALS: BP 101/60; TEMP 98.1; O2SAT 100
[2023-11-09 23:43] VITALS: O2SAT 97
[2023-11-10 07:58] VITALS: BP 121/76; TEMP 98.2; O2SAT 98
[2023-11-10 10:02] VITALS: O2SAT 97
[2023-11-10 20:03] VITALS: BP 95/64; TEMP 97.3; O2SAT 94
[2023-11-10 22:10] VITALS: O2SAT 98
[2023-11-10 23:58] VITALS: O2SAT 97
[2023-11-11 07:23] VITALS: BP 108/72; TEMP 97.6; O2SAT 98
[2023-11-11 10:16] VITALS: O2SAT 100
[2023-11-11 20:05] VITALS: BP 101/69; TEMP 97.5; O2SAT 96
[2023-11-11 22:02] VITALS: O2SAT 97
[2023-11-12 00:12] VITALS: O2SAT 98
[2023-11-12 07:56] VITALS: BP 104/69; TEMP 97.9; O2SAT 98
[2023-11-12 10:07] VITALS: O2SAT 100
[2023-11-12 21:57] VITALS: BP 108/73; TEMP 98.4; O2SAT 99
[2023-11-12 22:22] VITALS: O2SAT 100
[2023-11-13 10:11] VITALS: O2SAT 97
[2023-11-13 16:57] VITALS: BP 111/73; TEMP 97.7; O2SAT 98
[2023-11-13 21:13] VITALS: BP 101/59; TEMP 98.1; O2SAT 98
[2023-11-13 22:45] VITALS: O2SAT 100
[2023-11-14 10:15] VITALS: O2SAT 99
[2023-11-14 16:43] VITALS: BP 115/72; TEMP 98.8; O2SAT 97
[2023-11-14 18:51] VITALS: BP 120/70; TEMP 97.3; O2SAT 99
[2023-11-14 22:52] VITALS: O2SAT 99
[2023-11-15 08:47] VITALS: BP 102/62; TEMP 97.9; O2SAT 97
[2023-11-15 10:04] VITALS: O2SAT 99
[2023-11-15 10:47] VITALS: O2SAT 99
[2023-11-15 19:08] VITALS: BP 121/70; TEMP 98.1; O2SAT 100
[2023-11-15 22:04] VITALS: O2SAT 100; O2SAT 99
[2023-11-16 07:22] VITALS: BP 119/77; TEMP 97.3; O2SAT 99
[2023-11-16 11:46] VITALS: O2SAT 97
[2023-11-16 11:47] VITALS: O2SAT 97
[2023-11-16 19:04] VITALS: BP 105/66; TEMP 97.5; O2SAT 98
[2023-11-16 22:08] VITALS: O2SAT 98
[2023-11-17 07:34] VITALS: BP 106/70; TEMP 97.9; O2SAT 98
[2023-11-17 10:04] VITALS: O2SAT 98
[2023-11-17 11:15] VITALS: O2SAT 98
[2023-11-17 19:17] VITALS: BP 99/61; TEMP 98.1; O2SAT 98
[2023-11-17 23:23] VITALS: O2SAT 96
[2023-11-18 07:22] VITALS: BP 106/62; TEMP 97.5; O2SAT 97
[2023-11-18 10:10] VITALS: O2SAT 97
[2023-11-18 18:49] VITALS: BP 113/69; TEMP 97.9; O2SAT 100
[2023-11-18 23:26] VITALS: O2SAT 98
[2023-11-18 23:27] VITALS: O2SAT 98
[2023-11-19 07:37] VITALS: BP 105/66; TEMP 97.9; O2SAT 98
[2023-11-19 10:18] VITALS: O2SAT 97; O2SAT 98
[2023-11-19 20:00] VITALS: BP 111/66; TEMP 98.7; O2SAT 99
[2023-11-20 00:23] VITALS: O2SAT 100
[2023-11-20 00:24] VITALS: O2SAT 99
[2023-11-20 10:53] VITALS: O2SAT 97
[2023-11-20 22:00] VITALS: BP 102/68; TEMP 98.1; O2SAT 97
[2023-11-20 23:04] VITALS: O2SAT 97
[2023-11-21 08:02] VITALS: BP 92/54; TEMP 97.7; O2SAT 97
[2023-11-21 08:19] VITALS: O2SAT 94
[2023-11-21 10:10] VITALS: O2SAT 96
[2023-11-21 19:48] VITALS: BP 115/73; TEMP 98.3; O2SAT 100
[2023-11-21 22:21] VITALS: O2SAT 99
[2023-11-21 22:22] VITALS: O2SAT 99
[2023-11-22 08:10] VITALS: O2SAT 94
[2023-11-22 10:05] VITALS: O2SAT 97
[2023-11-22 22:34] VITALS: O2SAT 97
[2023-11-22 22:35] VITALS: O2SAT 97
[2023-11-23 10:14] VITALS: O2SAT 96
[2023-11-23 10:15] VITALS: O2SAT 96
[2023-11-23 19:47] VITALS: BP 107/63; TEMP 98.4; O2SAT 97
[2023-11-23 22:19] VITALS: O2SAT 98
[2023-11-24 07:39] VITALS: BP 103/64; TEMP 97.7; O2SAT 99
[2023-11-24 10:02] VITALS: O2SAT 99
[2023-11-24 10:03] VITALS: O2SAT 99
[2023-11-24 20:50] VITALS: BP 107/69; TEMP 99; O2SAT 99
[2023-11-24 22:28] VITALS: O2SAT 97
[2023-11-24 22:29] VITALS: O2SAT 97
[2023-11-25 07:26] VITALS: BP 97/62; TEMP 98.1; O2SAT 95
[2023-11-25 11:42] VITALS: O2SAT 99
[2023-11-25 11:45] VITALS: O2SAT 99
[2023-11-25 20:00] VITALS: BP 104/65; TEMP 98.1; O2SAT 99
[2023-11-25 22:31] VITALS: O2SAT 96
[2023-11-26 07:25] VITALS: BP 108/70; TEMP 97.9; O2SAT 96
[2023-11-26 11:03] VITALS: O2SAT 96
[2023-11-26 20:00] VITALS: BP 104/66; TEMP 98; O2SAT 99
[2023-11-26 22:07] VITALS: O2SAT 97
[2023-11-27 07:32] VITALS: BP 99/60; TEMP 98.1; O2SAT 96
[2023-11-27 12:38] VITALS: O2SAT 96
[2023-11-27 12:39] VITALS: O2SAT 98
[2023-11-27] MEDS: COVID-19 VACC, SPIKEVAX /PF 50 MCG/0.5 ML VIAL/SYR IM ONE (16:00)
[2023-11-27 19:16] VITALS: BP 102/59; TEMP 98.2; O2SAT 96
[2023-11-27 22:04] VITALS: O2SAT 99
[2023-11-27 22:05] VITALS: O2SAT 99
[2023-11-28 07:35] VITALS: BP 101/62; TEMP 98.1; O2SAT 99
[2023-11-28 10:02] VITALS: O2SAT 98
[2023-11-28 20:00] VITALS: BP 118/72; TEMP 98.3; O2SAT 99
[2023-11-28 23:51] VITALS: O2SAT 96
[2023-11-29 07:26] VITALS: BP 101/59; TEMP 98.8; O2SAT 98
[2023-11-29 11:04] VITALS: O2SAT 97
[2023-11-29 11:05] VITALS: O2SAT 98
[2023-11-29 19:07] VITALS: BP 105/63; TEMP 98.1; O2SAT 97
[2023-11-30 00:10] VITALS: O2SAT 98
[2023-11-30 00:11] VITALS: O2SAT 98
[2023-11-30 07:38] VITALS: BP 101/62; TEMP 97.8; O2SAT 98
[2023-11-30 10:47] VITALS: O2SAT 95
[2023-11-30 18:58] VITALS: BP 107/63; TEMP 97.9; O2SAT 98
[2023-12-01] VITALS (7 sets, daily range): BP systolic 102–107; BP diastolic 67–68; TEMP 97.7–99; O2SAT 95–98
[2023-12-02 07:42] VITALS: BP 103/67; TEMP 97.7; O2SAT 98
[2023-12-02 10:24] VITALS: O2SAT 96
[2023-12-02 12:03] VITALS: BP 103/67; TEMP 97.7; O2SAT 98
[2023-12-02 19:02] VITALS: BP 100/56; TEMP 98.1; O2SAT 96
[2023-12-02 23:25] VITALS: O2SAT 96
[2023-12-02 23:26] VITALS: O2SAT 96
[2023-12-03 07:49] VITALS: BP 96/59; TEMP 97.7; O2SAT 97
[2023-12-03 10:23] VITALS: O2SAT 97
[2023-12-03] MEDS: FLU VACC 2024-25(6MOS UP) 0.5 ML SYRINGE IM ONE (16:57)
[2023-12-03 20:00] VITALS: BP 98/68; TEMP 98.3; O2SAT 99
[2023-12-03 23:00] VITALS: O2SAT 96
[2023-12-03 23:01] VITALS: O2SAT 96
[2023-12-04 07:27] VITALS: BP_SYST 125; BP_SYST 97; BP_DIAS 63; BP_DIAS 88; TEMP 97.7; TEMP 98.6; O2SAT 98
[2023-12-04 10:02] VITALS: O2SAT 97
[2023-12-04 10:03] VITALS: O2SAT 97
[2023-12-04 20:00] VITALS: BP 125/73; TEMP 98.3; O2SAT 99
[2023-12-04 22:25] VITALS: O2SAT 97
[2023-12-04 22:36] VITALS: O2SAT 97
[2023-12-05 07:52] VITALS: BP 98/57; TEMP 97.9; O2SAT 100
[2023-12-05 10:21] VITALS: RESP 19; O2SAT 97; O2SAT 99
[2023-12-05 20:00] VITALS: BP 103/79; TEMP 98; O2SAT 99
[2023-12-05 23:48] VITALS: O2SAT 97; O2SAT 99
[2023-12-06 07:36] VITALS: BP 101/63; TEMP 97.9; O2SAT 99
[2023-12-06 08:25] VITALS: O2SAT 98
[2023-12-06 10:15] VITALS: O2SAT 98
[2023-12-06 19:28] VITALS: BP 101/62; TEMP 97.8; O2SAT 98
[2023-12-07 00:01] VITALS: O2SAT 96
[2023-12-07 07:20] VITALS: BP 98/55; TEMP 97.9; O2SAT 95
[2023-12-07 10:23] VITALS: O2SAT 97
[2023-12-07 19:49] VITALS: BP 101/61; TEMP 98.9; O2SAT 96
[2023-12-07 23:47] VITALS: O2SAT 99
[2023-12-08 09:04] VITALS: BP 111/74; TEMP 97.3; O2SAT 98
[2023-12-08 10:27] VITALS: O2SAT 98
[2023-12-08 20:00] VITALS: BP 104/73; TEMP 97.1; O2SAT 98
[2023-12-08 22:55] VITALS: O2SAT 98
[2023-12-08 23:13] VITALS: O2SAT 98
[2023-12-09 07:32] VITALS: BP 106/69; TEMP 98.6; O2SAT 98
[2023-12-09 10:02] VITALS: O2SAT 98
[2023-12-09 21:11] VITALS: BP 110/68; TEMP 98.2; O2SAT 97
[2023-12-09 22:44] VITALS: O2SAT 98
[2023-12-09 22:50] VITALS: O2SAT 97
[2023-12-10 07:35] VITALS: BP 104/67; TEMP 97.9; O2SAT 96
[2023-12-10 07:38] LABS: BASOPHILS % (AUTO) 0.5 % (0.0-2.0); EOSINOPHILS # (AUTO) 0.2 K/uL (0.0-0.7); EOSINOPHILS % (AUTO) 3.1 % (0.0-6.0); HEMATOCRIT 37 % (39-51); HEMOGLOBIN 11.8 g/dL (13.5-17.5); LYMPHOCYTES # (AUTO) 3.3 K/uL (0.8-4.8); LYMPHOCYTES % (AUTO) 42.3 % (20.0-44.0); MEAN CORPUSCULAR HEMOGLOBIN 29 PG (26.0-33.0); MEAN CORPUSCULAR HGB CONC 32 g/dl (31.0-36.0); MEAN CORPUSCULAR VOLUME 89 fL (80-96); MONOCYTES # (AUTO) 0.7 K/uL (0.1-1.30); MONOCYTES % (AUTO) 8.3 % (2.0-12.0); NEUTROPHILS # (AUTO) 3.6 K/uL (1.8-8.9); NEUTROPHILS % (AUTO) 45.8 % (43.0-81.0); PLATELET COUNT (AUTO) 219 K/uL (150-450); RED BLOOD CELL COUNT(AUTO) 4.14 MIL/uL (4.5-6.0); WHITE BLOOD COUNT (AUTO) 7.9 K/uL (4.3-11.0)
[2023-12-10 08:29] LABS: CALCIUM, SERUM 10.2 mg/dL (8.5-10.1); CREATININE 0.2 mg/dL (0.6-1.3); POTASSIUM 3.7 mmol/L (3.5-5.1)
[2023-12-10 10:08] VITALS: O2SAT 98
[2023-12-10 19:58] VITALS: BP 100/60; TEMP 98.6; O2SAT 98
[2023-12-10 23:12] VITALS: O2SAT 96
[2023-12-11 07:15] VITALS: BP 105/71; TEMP 97.7; O2SAT 94
[2023-12-11 10:04] VITALS: O2SAT 97
[2023-12-11 19:53] VITALS: BP 100/62; TEMP 97.5; O2SAT 100
[2023-12-11 22:21] VITALS: O2SAT 98
[2023-12-12 07:13] VITALS: BP 107/65; TEMP 98; O2SAT 100
[2023-12-12 11:14] VITALS: O2SAT 100
[2023-12-12 11:15] VITALS: O2SAT 100
[2023-12-12 20:00] VITALS: BP 126/77; TEMP 98; O2SAT 99
[2023-12-12 23:17] VITALS: O2SAT 99
[2023-12-13 07:15] VITALS: BP 99/66; TEMP 96.2; O2SAT 98
[2023-12-13 10:04] VITALS: O2SAT 97
[2023-12-13 11:20] VITALS: O2SAT 97
[2023-12-13 19:44] VITALS: BP 103/65; TEMP 97.5; O2SAT 99
[2023-12-14 00:02] VITALS: O2SAT 100
[2023-12-14 07:42] VITALS: BP 99/60; TEMP 97.5; O2SAT 98
[2023-12-14 10:19] VITALS: O2SAT 98
[2023-12-14 19:44] VITALS: BP 98/63; TEMP 98.4; O2SAT 98
[2023-12-14 23:52] VITALS: O2SAT 95
[2023-12-15 07:05] VITALS: BP 103/63; TEMP 98.2; O2SAT 99
[2023-12-15 10:04] VITALS: O2SAT 96
[2023-12-15 11:35] VITALS: O2SAT 98
[2023-12-15 19:32] VITALS: BP 100/60; TEMP 98.6; O2SAT 91
[2023-12-15 23:05] VITALS: O2SAT 98
[2023-12-15 23:06] VITALS: O2SAT 98
[2023-12-16 07:29] VITALS: BP 109/52; TEMP 98.2; O2SAT 97
[2023-12-16 10:07] VITALS: O2SAT 98
[2023-12-16 10:08] VITALS: O2SAT 98
[2023-12-16 19:35] VITALS: BP 108/64; TEMP 97.7; O2SAT 93
[2023-12-16 22:01] VITALS: O2SAT 97
[2023-12-16 22:02] VITALS: O2SAT 97
[2023-12-17 10:04] VITALS: O2SAT 98
[2023-12-17 19:38] VITALS: BP 93/57; TEMP 98.2; O2SAT 96
[2023-12-17 23:31] VITALS: O2SAT 96
[2023-12-17 23:32] VITALS: O2SAT 96
[2023-12-18 08:38] VITALS: BP 110/68; TEMP 98.4; O2SAT 98
[2023-12-18 11:26] VITALS: O2SAT 95
[2023-12-18 22:00] VITALS: BP 97/58; TEMP 98.2; O2SAT 96
[2023-12-18 22:01] VITALS: O2SAT 97
[2023-12-18 22:02] VITALS: O2SAT 97
[2023-12-19 07:19] VITALS: BP 114/81; TEMP 98.2; O2SAT 96
[2023-12-19 10:47] VITALS: O2SAT 98
[2023-12-19 10:48] VITALS: O2SAT 98
[2023-12-19 19:40] VITALS: BP 101/60; TEMP 98.4; O2SAT 98
[2023-12-19 22:01] VITALS: O2SAT 98
[2023-12-19 22:02] VITALS: O2SAT 98
[2023-12-20 07:26] VITALS: BP 113/73; TEMP 98.5; O2SAT 97
[2023-12-20 10:07] VITALS: O2SAT 98
[2023-12-20 10:08] VITALS: O2SAT 98
[2023-12-20 19:47] VITALS: BP 114/65; TEMP 98.9; O2SAT 99
[2023-12-20 23:07] VITALS: O2SAT 97
[2023-12-21 07:52] VITALS: BP 99/60; TEMP 97.7; O2SAT 97
[2023-12-21 11:51] VITALS: O2SAT 100; O2SAT 98
[2023-12-21 19:11] VITALS: BP 119/68; TEMP 98.6; O2SAT 98
[2023-12-21 22:50] VITALS: O2SAT 96
[2023-12-22 07:25] VITALS: BP 103/59; TEMP 98.4; O2SAT 97
[2023-12-22 10:06] VITALS: O2SAT 97
[2023-12-22 19:23] VITALS: BP 101/72; TEMP 98.2; O2SAT 98
[2023-12-22 22:30] VITALS: O2SAT 98
[2023-12-23 07:24] VITALS: BP 120/75; TEMP 98.4; O2SAT 99
[2023-12-23 10:05] VITALS: O2SAT 98
[2023-12-23 19:09] VITALS: BP 101/66; TEMP 98.4; O2SAT 100
[2023-12-23 22:22] VITALS: O2SAT 99
[2023-12-23 22:23] VITALS: O2SAT 98
[2023-12-24 07:54] VITALS: BP 114/63; TEMP 97.7; O2SAT 98
[2023-12-24 10:06] VITALS: O2SAT 97
[2023-12-24 10:07] VITALS: O2SAT 97
[2023-12-24] MEDS: TUBERCULIN,PURIF.PROT.DERIV. 5 TU/0.1 ML VIAL ID SCH (13:00)
[2023-12-24 19:23] VITALS: BP 105/74; TEMP 97.7; O2SAT 96
[2023-12-24 22:16] VITALS: O2SAT 97
[2023-12-25 07:10] VITALS: BP 116/69; TEMP 97.7; O2SAT 96
[2023-12-25 10:22] VITALS: O2SAT 97; O2SAT 99
[2023-12-25 19:48] VITALS: BP 100/65; TEMP 97.5; O2SAT 99
[2023-12-25 22:28] VITALS: O2SAT 99
[2023-12-26 11:54] VITALS: O2SAT 99
[2023-12-26 20:59] VITALS: BP 123/60; TEMP 98.4; O2SAT 100
[2023-12-26 23:01] VITALS: O2SAT 99
[2023-12-27 07:23] VITALS: BP 111/74; TEMP 98.5; O2SAT 100
[2023-12-27 10:04] VITALS: O2SAT 98
[2023-12-27 11:39] VITALS: O2SAT 99
[2023-12-27 19:24] VITALS: BP 110/62; TEMP 97.8; O2SAT 97
[2023-12-27 23:28] VITALS: O2SAT 98
[2023-12-28 07:11] VITALS: BP 113/63; TEMP 96.6; O2SAT 98
[2023-12-28 10:57] VITALS: O2SAT 98; O2SAT 99
[2023-12-28 19:09] VITALS: BP 112/54; TEMP 97.6; O2SAT 98
[2023-12-28 23:28] VITALS: O2SAT 98
[2023-12-29 07:26] VITALS: BP 124/67; TEMP 98.4; O2SAT 96
[2023-12-29 10:12] VITALS: O2SAT 97
[2023-12-29 20:03] VITALS: BP 112/65; TEMP 97.7; O2SAT 97
[2023-12-29 23:14] VITALS: O2SAT 99
[2023-12-30 07:22] VITALS: BP 112/52; TEMP 98.3; O2SAT 97
[2023-12-30 10:04] VITALS: O2SAT 98
[2023-12-30 10:05] VITALS: O2SAT 98
[2023-12-30 19:00] VITALS: BP 101/62; TEMP 97.9; O2SAT 96
[2023-12-30 22:18] VITALS: O2SAT 97
[2023-12-31 10:13] VITALS: O2SAT 97; O2SAT 98
[2023-12-31 15:44] VITALS: BP 112/71; TEMP 97; O2SAT 100
[2023-12-31 20:00] VITALS: BP 105/65; TEMP 98; O2SAT 99
[2023-12-31 22:00] VITALS: O2SAT 98
[2024-01-01 08:49] VITALS: BP 114/69; TEMP 97.7; O2SAT 100
[2024-01-01 11:48] VITALS: O2SAT 94
[2024-01-01 11:49] VITALS: O2SAT 98
[2024-01-01 20:34] VITALS: BP 111/77; TEMP 98; O2SAT 99
[2024-01-01 22:21] VITALS: O2SAT 99
[2024-01-02 10:05] VITALS: O2SAT 96
[2024-01-02 20:00] VITALS: BP 117/63; TEMP 98.1; O2SAT 99
[2024-01-02 23:36] VITALS: O2SAT 98
[2024-01-02 23:37] VITALS: O2SAT 99
[2024-01-03 10:12] VITALS: O2SAT 97
[2024-01-03 10:13] VITALS: O2SAT 97
[2024-01-03 16:04] VITALS: BP 109/69; TEMP 97.9; O2SAT 97
[2024-01-03 19:45] VITALS: BP 110/56; TEMP 98.2; O2SAT 100
[2024-01-03 22:20] VITALS: O2SAT 99
[2024-01-03 22:21] VITALS: O2SAT 99
[2024-01-04] MEDS: TRIAMCINOLONE ACETONIDE 0.1% CR 15 GM TUBE TP SCH (09:43)
[2024-01-04] MEDS: NYSTATIN CREAM 15 GM TUBE TP SCH (09:43)
[2024-01-04 10:07] VITALS: O2SAT 100
[2024-01-04 16:38] VITALS: BP 117/72; TEMP 97.7; O2SAT 99
[2024-01-04 20:47] VITALS: BP 104/61; TEMP 97.8; O2SAT 100
[2024-01-04 22:37] VITALS: O2SAT 99
[2024-01-04 22:39] VITALS: O2SAT 99
[2024-01-05 08:05] VITALS: BP 119/78; TEMP 98.1; O2SAT 100
[2024-01-05 10:36] VITALS: RESP 16; O2SAT 100; O2SAT 99
[2024-01-05 19:05] VITALS: BP 109/62; TEMP 98; O2SAT 99
[2024-01-05 23:33] VITALS: O2SAT 97
[2024-01-06 07:28] VITALS: BP 126/78; TEMP 98.1; O2SAT 100
[2024-01-06 10:31] VITALS: O2SAT 97
[2024-01-06 13:16] VITALS: O2SAT 98
[2024-01-06 20:00] VITALS: BP 105/70; TEMP 98; O2SAT 99
[2024-01-06 22:59] VITALS: O2SAT 99
[2024-01-06 23:01] VITALS: O2SAT 98
[2024-01-07 07:26] VITALS: BP 131/71; TEMP 98.4; O2SAT 97
[2024-01-07 10:02] VITALS: O2SAT 99
[2024-01-07 20:00] VITALS: BP 117/69; TEMP 97.5; O2SAT 99
[2024-01-07 22:16] VITALS: O2SAT 97
[2024-01-08 10:02] VITALS: O2SAT 97
[2024-01-08 10:03] VITALS: O2SAT 97
[2024-01-08 15:41] VITALS: BP 110/65; TEMP 97.9; O2SAT 98
[2024-01-08 21:02] VITALS: BP 101/69; TEMP 97.9; O2SAT 99
[2024-01-08 22:42] VITALS: O2SAT 98
[2024-01-08 22:43] VITALS: O2SAT 98
[2024-01-09 07:19] VITALS: BP 117/76; TEMP 97.6; O2SAT 98
[2024-01-09 12:06] VITALS: O2SAT 98
[2024-01-09 20:00] VITALS: BP 124/67; TEMP 98; O2SAT 99
[2024-01-09 23:49] VITALS: O2SAT 99
[2024-01-10 07:23] VITALS: BP 123/72; TEMP 96.7; O2SAT 100
[2024-01-10 10:12] VITALS: O2SAT 100
[2024-01-10 10:13] VITALS: O2SAT 100
[2024-01-10 20:56] VITALS: BP 101/50; TEMP 97.7; O2SAT 98
[2024-01-10 22:13] VITALS: O2SAT 97
[2024-01-11 07:43] VITALS: BP 101/63; TEMP 97.9; O2SAT 99
[2024-01-11 11:28] VITALS: O2SAT 100
[2024-01-11 19:56] VITALS: BP 112/69; TEMP 98.1; O2SAT 98
[2024-01-11 23:44] VITALS: O2SAT 98
[2024-01-12 07:43] VITALS: BP 106/82; TEMP 97.9; O2SAT 98
[2024-01-12 10:17] VITALS: O2SAT 99
[2024-01-12 19:47] VITALS: BP 104/68; TEMP 97.6; O2SAT 99
[2024-01-12 23:24] VITALS: O2SAT 96
[2024-01-13 07:47] VITALS: BP 100/63; TEMP 97.5; O2SAT 98
[2024-01-13 10:08] VITALS: O2SAT 99
[2024-01-13 19:10] VITALS: BP 105/68; TEMP 98.4; O2SAT 97
[2024-01-13 22:18] VITALS: O2SAT 98
[2024-01-14 10:03] VITALS: O2SAT 99
[2024-01-14 11:55] VITALS: BP 115/71; TEMP 98.1; O2SAT 99
[2024-01-14 20:48] VITALS: BP 103/64; TEMP 97.9; O2SAT 98
[2024-01-14 22:35] VITALS: O2SAT 98
[2024-01-15 07:31] VITALS: BP 105/70; TEMP 97.9; O2SAT 97
[2024-01-15 10:11] VITALS: O2SAT 97
[2024-01-15 10:12] VITALS: O2SAT 97
[2024-01-15 22:00] VITALS: BP 98/73; TEMP 97.5; O2SAT 97
[2024-01-15 22:09] VITALS: O2SAT 96
[2024-01-15 22:10] VITALS: O2SAT 96
[2024-01-16 09:52] VITALS: O2SAT 96
[2024-01-16 10:10] VITALS: O2SAT 97
[2024-01-16 20:56] VITALS: BP 101/57; TEMP 97.7; O2SAT 99
[2024-01-16 22:31] VITALS: O2SAT 97
[2024-01-17 07:15] VITALS: BP 111/61; TEMP 97.7; O2SAT 100
[2024-01-17 10:10] VITALS: O2SAT 96
[2024-01-17 10:22] VITALS: O2SAT 96
[2024-01-17 21:00] VITALS: BP 106/72; TEMP 98.2; O2SAT 97
[2024-01-17 22:32] VITALS: O2SAT 95
[2024-01-18 07:44] VITALS: BP 103/74; TEMP 97.5; O2SAT 97
[2024-01-18] MEDS: NYSTATIN CREAM 15 GM TUBE TP SCH (09:20)
[2024-01-18] MEDS: TRIAMCINOLONE ACETONIDE 0.1% CR 15 GM TUBE TP SCH (09:20)
[2024-01-18 11:53] VITALS: O2SAT 97
[2024-01-18 19:42] VITALS: BP 105/53; TEMP 98.3; O2SAT 98
[2024-01-18 23:25] VITALS: O2SAT 97
[2024-01-19 07:22] VITALS: BP 109/67; TEMP 98.1; O2SAT 97
[2024-01-19 10:14] VITALS: O2SAT 98
[2024-01-19 19:24] VITALS: BP 105/69; TEMP 97.9; O2SAT 98
[2024-01-19 23:14] VITALS: O2SAT 98
[2024-01-19 23:19] VITALS: O2SAT 98
[2024-01-20 07:38] VITALS: BP 104/80; TEMP 98.2; O2SAT 100
[2024-01-20 10:08] VITALS: O2SAT 97
[2024-01-20 11:06] VITALS: O2SAT 96
[2024-01-20 22:42] VITALS: O2SAT 98
[2024-01-20 22:43] VITALS: O2SAT 98
[2024-01-20 22:52] VITALS: BP 98/67; TEMP 97.5; O2SAT 99
[2024-01-21 07:37] VITALS: BP 110/72; TEMP 97.7; O2SAT 98
[2024-01-21 10:04] VITALS: O2SAT 99
[2024-01-21 22:33] VITALS: O2SAT 98
[2024-01-22 07:31] VITALS: BP 112/66; TEMP 97.7; O2SAT 98
[2024-01-22 13:42] VITALS: O2SAT 97; O2SAT 99
[2024-01-22 23:23] VITALS: O2SAT 99
[2024-01-23 07:13] VITALS: BP 101/68; TEMP 97.3; O2SAT 99
[2024-01-23 12:08] VITALS: O2SAT 96
[2024-01-23 12:11] VITALS: O2SAT 96
[2024-01-23 20:00] VITALS: BP 103/64; TEMP 97.3; O2SAT 100
[2024-01-23 22:17] VITALS: O2SAT 100
[2024-01-24 07:24] VITALS: BP 115/77; TEMP 97.4; O2SAT 99
[2024-01-24 10:05] VITALS: O2SAT 98; O2SAT 99
[2024-01-24 20:00] VITALS: BP 110/68; TEMP 97.8; O2SAT 100
[2024-01-24 23:08] VITALS: O2SAT 97
[2024-01-25 07:51] VITALS: BP 106/56; TEMP 97.5; O2SAT 98
[2024-01-25 10:53] VITALS: O2SAT 96
[2024-01-25 11:26] VITALS: O2SAT 99
[2024-01-25 19:29] VITALS: BP 109/67; TEMP 98.1; O2SAT 100
[2024-01-25 23:21] VITALS: O2SAT 99
[2024-01-25 23:22] VITALS: O2SAT 100
[2024-01-26 07:16] VITALS: BP 108/68; TEMP 97.7; O2SAT 100
[2024-01-26 10:04] VITALS: O2SAT 99
[2024-01-26 11:26] VITALS: O2SAT 98
[2024-01-26 19:35] VITALS: BP 105/68; TEMP 98; O2SAT 99
[2024-01-26 23:32] VITALS: O2SAT 100
[2024-01-26 23:33] VITALS: O2SAT 100
[2024-01-27 07:35] VITALS: BP 106/67; TEMP 98.2; O2SAT 98
[2024-01-27 10:40] VITALS: O2SAT 97; O2SAT 98
[2024-01-27 22:00] VITALS: BP 106/65; TEMP 98.2; O2SAT 99
[2024-01-27 23:19] VITALS: O2SAT 99
[2024-01-28 07:24] VITALS: BP 104/71; TEMP 97.2; O2SAT 97
[2024-01-28 10:02] VITALS: O2SAT 97
[2024-01-28 19:27] VITALS: BP 129/80; TEMP 97.9; O2SAT 98
[2024-01-28 22:50] VITALS: O2SAT 97
[2024-01-29 07:24] VITALS: BP 109/70; TEMP 97.2; O2SAT 99
[2024-01-29 10:32] VITALS: O2SAT 97
[2024-01-29 10:33] VITALS: O2SAT 97
[2024-01-29 19:32] VITALS: BP 112/75; TEMP 97.9; O2SAT 98
[2024-01-29 23:16] VITALS: O2SAT 98
[2024-01-29 23:17] VITALS: O2SAT 98
[2024-01-30 07:21] VITALS: BP 100/58; TEMP 97.2; O2SAT 97
[2024-01-30 12:50] VITALS: O2SAT 96; O2SAT 99
[2024-01-30 20:50] VITALS: BP 109/65; TEMP 97.5; O2SAT 99
[2024-01-30 23:51] VITALS: O2SAT 98; O2SAT 99
[2024-01-30 23:52] VITALS: O2SAT 98
[2024-01-31 10:00] VITALS: O2SAT 98
[2024-01-31 10:19] VITALS: O2SAT 98
[2024-01-31 19:22] VITALS: BP 103/62; TEMP 97.9; O2SAT 100
[2024-01-31 23:42] VITALS: O2SAT 98
[2024-02-01 07:26] VITALS: BP 112/72; TEMP 97.6; O2SAT 99
[2024-02-01 10:24] VITALS: O2SAT 98
[2024-02-01 11:42] VITALS: O2SAT 99
[2024-02-01 20:59] VITALS: BP 98/59; TEMP 97.9; O2SAT 100
[2024-02-01 22:07] VITALS: O2SAT 98
[2024-02-01 22:08] VITALS: O2SAT 98
[2024-02-02 08:01] VITALS: BP 108/64; TEMP 97.2; O2SAT 99
[2024-02-02 10:38] VITALS: O2SAT 97
[2024-02-02 19:59] VITALS: BP 101/62; TEMP 97.3; O2SAT 98
[2024-02-02 22:14] VITALS: O2SAT 96
[2024-02-02 22:15] VITALS: O2SAT 96
[2024-02-03 07:39] VITALS: BP 117/73; TEMP 97.6; O2SAT 99
[2024-02-03 10:10] VITALS: O2SAT 97
[2024-02-03 19:26] VITALS: BP 103/64; TEMP 97.8; O2SAT 98
[2024-02-03 22:33] VITALS: O2SAT 98
[2024-02-04 08:02] VITALS: BP 111/56; TEMP 98; O2SAT 98
[2024-02-04 10:11] VITALS: O2SAT 96; O2SAT 97
[2024-02-04 10:37] VITALS: RESP 16; O2SAT 97
[2024-02-04 19:20] VITALS: BP 107/64; TEMP 98.1; O2SAT 99
[2024-02-04 23:21] VITALS: O2SAT 100
[2024-02-05 07:36] VITALS: BP 113/73; TEMP 97.5; O2SAT 97
[2024-02-05 10:10] VITALS: O2SAT 97
[2024-02-05 19:39] VITALS: BP 102/66; TEMP 97.5; O2SAT 99
[2024-02-05 22:07] VITALS: O2SAT 99
[2024-02-05 22:08] VITALS: O2SAT 99
[2024-02-06 07:59] VITALS: BP 109/67; TEMP 98; O2SAT 99
[2024-02-06 10:40] VITALS: O2SAT 97
[2024-02-06 20:23] VITALS: BP 109/71; TEMP 97.9; O2SAT 100
[2024-02-06 23:20] VITALS: O2SAT 100
[2024-02-06 23:21] VITALS: O2SAT 100
[2024-02-07 07:19] VITALS: BP 102/79; TEMP 97.7; O2SAT 97
[2024-02-07 10:05] VITALS: O2SAT 99
[2024-02-07 10:20] VITALS: O2SAT 97
[2024-02-07 19:38] VITALS: BP 134/78; TEMP 97.5; O2SAT 100
[2024-02-08 00:10] VITALS: O2SAT 99
[2024-02-08 08:11] VITALS: BP 117/75; TEMP 97; O2SAT 99
[2024-02-08 11:39] VITALS: O2SAT 96
[2024-02-08 11:40] VITALS: O2SAT 97
[2024-02-08 18:56] VITALS: BP 105/66; TEMP 97.5; O2SAT 99
[2024-02-09] VITALS (8 sets, daily range): BP systolic 127–133; BP diastolic 73–77; TEMP 97.5–98.2; O2SAT 97–100
[2024-02-10 07:25] VITALS: BP 105/70; TEMP 97.7; O2SAT 97
[2024-02-10 10:31] VITALS: O2SAT 97
[2024-02-10 22:32] VITALS: O2SAT 99
[2024-02-10 22:33] VITALS: O2SAT 99
[2024-02-11 10:32] VITALS: O2SAT 97
[2024-02-11 19:49] VITALS: BP 118/65; TEMP 97.5; O2SAT 100
[2024-02-11 22:53] VITALS: O2SAT 98
[2024-02-12 07:17] VITALS: BP 101/72; TEMP 98.1; O2SAT 99
[2024-02-12 11:29] VITALS: O2SAT 97
[2024-02-12 11:30] VITALS: O2SAT 97
[2024-02-12 20:00] VITALS: BP 103/58; TEMP 97.5; O2SAT 99
[2024-02-12 22:11] VITALS: O2SAT 98
[2024-02-12 22:12] VITALS: O2SAT 98
[2024-02-13 07:32] VITALS: BP 104/67; TEMP 97.5; O2SAT 99
[2024-02-13 07:39] LABS: BASOPHILS % (AUTO) 0.5 % (0.0-2.0); EOSINOPHILS # (AUTO) 0.2 K/uL (0.0-0.7); EOSINOPHILS % (AUTO) 2.1 % (0.0-6.0); HEMATOCRIT 40 % (39-51); HEMOGLOBIN 12.8 g/dL (13.5-17.5); LYMPHOCYTES # (AUTO) 3.4 K/uL (0.8-4.8); LYMPHOCYTES % (AUTO) 43.4 % (20.0-44.0); MEAN CORPUSCULAR HEMOGLOBIN 29 PG (26.0-33.0); MEAN CORPUSCULAR HGB CONC 32 g/dl (31.0-36.0); MEAN CORPUSCULAR VOLUME 89 fL (80-96); MONOCYTES # (AUTO) 0.8 K/uL (0.1-1.30); MONOCYTES % (AUTO) 9.9 % (2.0-12.0); NEUTROPHILS # (AUTO) 3.5 K/uL (1.8-8.9); NEUTROPHILS % (AUTO) 44.1 % (43.0-81.0); PLATELET COUNT (AUTO) 186 K/uL (150-450); RED BLOOD CELL COUNT(AUTO) 4.44 MIL/uL (4.5-6.0); RED CELL DISTRIBUTION WIDTH 19.5 % (11.5-15.0); WHITE BLOOD COUNT (AUTO) 7.9 K/uL (4.3-11.0)
[2024-02-13 10:04] VITALS: O2SAT 98
[2024-02-13 10:52] VITALS: O2SAT 96
[2024-02-13 20:00] VITALS: BP 114/75; TEMP 98.3; O2SAT 99
[2024-02-13 22:54] VITALS: O2SAT 99
[2024-02-13 22:55] VITALS: O2SAT 99
[2024-02-14 07:28] VITALS: BP 101/52; TEMP 98.2; O2SAT 100
[2024-02-14 10:04] VITALS: O2SAT 99
[2024-02-14 11:00] VITALS: O2SAT 97
[2024-02-14 22:41] VITALS: O2SAT 98
[2024-02-14 22:43] VITALS: O2SAT 98
[2024-02-14 23:14] VITALS: BP 111/66; TEMP 97.8; O2SAT 99
[2024-02-15 07:48] VITALS: BP 115/73; TEMP 97.6; O2SAT 98
[2024-02-15 11:17] VITALS: O2SAT 96
[2024-02-15 11:18] VITALS: O2SAT 97
[2024-02-15 19:50] VITALS: BP 111/70; TEMP 97.3; O2SAT 100
[2024-02-15] MEDS: TRIAMCINOLONE ACETONIDE 0.1% CR 15 GM TUBE TP SCH (20:04)
[2024-02-15] MEDS: NYSTATIN CREAM 15 GM TUBE TP SCH (20:04)
[2024-02-15 23:23] VITALS: O2SAT 99
[2024-02-16 07:24] VITALS: BP 110/73; TEMP 97.9; O2SAT 100
[2024-02-16 12:42] VITALS: O2SAT 98
[2024-02-16 12:44] VITALS: O2SAT 98
[2024-02-16 19:26] VITALS: BP 117/68; TEMP 97.7; O2SAT 100
[2024-02-16 22:58] VITALS: O2SAT 99
[2024-02-17 07:29] VITALS: BP 103/64; TEMP 97.7; O2SAT 98
[2024-02-17 10:19] VITALS: O2SAT 96
[2024-02-17 10:20] VITALS: O2SAT 96
[2024-02-17 20:00] VITALS: BP 121/76; TEMP 98.1; O2SAT 99
[2024-02-17 22:43] VITALS: O2SAT 97
[2024-02-18 07:31] VITALS: BP 109/68; TEMP 98.6; O2SAT 98
[2024-02-18 10:13] VITALS: O2SAT 97
[2024-02-18 20:00] VITALS: BP 121/72; TEMP 98; O2SAT 99
[2024-02-18 22:50] VITALS: O2SAT 96
[2024-02-18 22:52] VITALS: O2SAT 96
[2024-02-19 07:32] VITALS: BP 107/68; TEMP 97.7; O2SAT 98
[2024-02-19 10:04] VITALS: O2SAT 97
[2024-02-19 18:58] VITALS: BP 124/68; TEMP 97.9; O2SAT 98
[2024-02-19 22:15] VITALS: O2SAT 95
[2024-02-20 07:14] VITALS: BP 138/78; TEMP 99.1; O2SAT 98
[2024-02-20 10:03] VITALS: O2SAT 97
[2024-02-20 20:00] VITALS: BP 108/70; TEMP 97.5; O2SAT 99
[2024-02-21] VITALS (7 sets, daily range): BP systolic 102–112; BP diastolic 68; TEMP 98.2–98.6; O2SAT 97–99
[2024-02-22 07:24] VITALS: BP 108/64; TEMP 97; O2SAT 98
[2024-02-22 10:45] VITALS: O2SAT 98
[2024-02-22 11:06] VITALS: O2SAT 97
[2024-02-22 20:05] VITALS: BP 105/64; TEMP 97.8; O2SAT 96
[2024-02-22 22:49] VITALS: O2SAT 96
[2024-02-22 22:50] VITALS: O2SAT 96
[2024-02-23 07:31] VITALS: BP 112/67; TEMP 98.2; O2SAT 99
[2024-02-23 10:28] VITALS: O2SAT 96
[2024-02-23 10:29] VITALS: O2SAT 96
[2024-02-23 19:31] VITALS: BP 100/65; TEMP 97.6; O2SAT 96
[2024-02-23 22:20] VITALS: O2SAT 96
[2024-02-24 07:47] VITALS: BP 120/80; TEMP 97.6; O2SAT 98
[2024-02-24 10:07] VITALS: O2SAT 96
[2024-02-24 19:03] VITALS: BP 113/69; TEMP 98.1; O2SAT 96
[2024-02-24 23:27] VITALS: O2SAT 96
[2024-02-25 07:45] VITALS: BP 109/64; TEMP 97.7; O2SAT 98
[2024-02-25 10:38] VITALS: O2SAT 97
[2024-02-25 20:49] VITALS: BP 99/74; TEMP 97.9; O2SAT 98
[2024-02-25 22:16] VITALS: O2SAT 97
[~2024-02-26] VITALS: Ht 157.5 cm; Wt 89.8 kg
[2024-02-26 07:06] VITALS: BP 108/67; TEMP 97.6; O2SAT 98
[2024-02-26 10:18] VITALS: O2SAT 97; O2SAT 99
[2024-02-26 20:56] VITALS: BP 116/71; TEMP 98.2; O2SAT 95
[2024-02-26 22:01] VITALS: O2SAT 96
[2024-02-26 22:02] VITALS: O2SAT 97
[~2024-02-26 23:59] MED LIST changes: +ACETAMINOPHEN 650 MG/20 ML UDC- SA PATIENTS-FEVER ONLY GT PRN; +ALBUTEROL FS 2.5 MG/3 ML VIAL.NEB NEB PRN; +CARVEDILOL 3.125 MG TABLET PO SCH; +DIATR MEGLU/DIATRIZOATE SODIUM 30 ML BOTTLE (GASTROGRAPHIN) ONE; -LACT10SO GT; +LACT10SO3 GT; +PNEUMOC 20-VAL CONJ-DIP CRM/PF 0.5 ML SYRINGE IM ONE; +POLYVINYL ALCOHOL 15 ML BOTTLE EACHEYE PRN
[2024-02-27 08:14] VITALS: BP 117/77; TEMP 97.7; O2SAT 98
[2024-02-27 10:18] VITALS: O2SAT 96
[2024-02-27 20:00] VITALS: BP 120/75; TEMP 97.5; O2SAT 99
[2024-02-27 22:11] VITALS: O2SAT 97
[2024-02-27 22:12] VITALS: O2SAT 97; O2SAT 98
== END | disposition still patient (30) | DRG 130 ==
LOC: SA 02-26 → UNDOADMIN 02-26
PROVIDERS: ADMIT Internal Medicine; ATTEND Internal Medicine
PROC: 5A1955Z Respiratory Ventilation, Greater than 96 Consecutive Hours (ICD-10-PCS; principal; 2023-02-26)
DX: J96.11 Chronic respiratory failure with hypoxia (principal); G93.49 Other encephalopathy; R53.2 Functional quadriplegia; G93.1 Anoxic brain damage, not elsewhere classified; D68.59 Other primary thrombophilia; Z93.0 Tracheostomy status; I48.20 Chronic atrial fibrillation, unspecified; E66.01 Morbid (severe) obesity due to excess calories; Z99.11 Dependence on respirator [ventilator] status; G40.909 Epilepsy, unspecified, not intractable, without status epilepticus; I48.0 Paroxysmal atrial fibrillation; Z86.74 Personal history of sudden cardiac arrest; I25.5 Ischemic cardiomyopathy; R13.10 Dysphagia, unspecified; Z20.822 Contact with and (suspected) exposure to COVID-19; Z74.01 Bed confinement status; Z86.16 Personal history of COVID-19; Z68.34 Body mass index [BMI] 34.0-34.9, adult; Z79.01 Long term (current) use of anticoagulants; M19.90 Unspecified osteoarthritis, unspecified site; M24.542 Contracture, left hand; I25.10 Atherosclerotic heart disease of native coronary artery without angina pectoris; J96.12 Chronic respiratory failure with hypercapnia; R76.11 Nonspecific reaction to tuberculin skin test without active tuberculosis; K21.9 Gastro-esophageal reflux disease without esophagitis; Z74.09 Other reduced mobility
CPT/HCPCS: 31720; 36415; 74018; 80048-TC; 81001; 84443-TC; 85025-TC; 86580-TC; 87086-TC; 93307-TC; 94002-TC; 94003-TC; 94640-TC; 94760-TC; 94762-TC; 94799-TC; A4623; A7526; J1650; J1953; Q9963